=== PATIENT | male | born 1950 | race Caucasian/White ===

== ENCOUNTER → 2016-11-30 | Outpatient (CLI) | payer BC, MEDICARE ==
--- NOTE | 2016-11-30 10:04 | RADIOLOGY REPORT (SQ) ---
EXAM DESCRIPTION: CT LUNG CANCER SCREENING COMPLETED DATE/TIME: 11/30/2016 9:09 am REASON FOR STUDY: NICOTINE DEPENDENCE (F17.200) F17.200 NICOTINE DEPENDENCE, UNSPECIFIED, UNCOMPLIC ATED Has the patient had a Chest CT scan within the past year? No Was the patient offered tobacco cessation counseling? No Was the patient engaged in shared decision making for this test? No Does the patient have signs or symptoms of Lung Cancer? No Is the patient a smoker? No How many packs per year? 365 How many years since quitting smoking? Less than 1 Patients age: 66 COMPARISON: None. TECHNIQUE: Low Dose CT scan performed of the chest without intravenous contrast for purposes of scre ening for lung cancer. Images reviewed with lung, soft tissue and bone windows. Reconstructed coron al and sagittal MPR images reviewed. All images stored on PACS. All CT scanners at this facility use dose modulation, iterative reconstruction, and/or weight based d osing when appropriate to reduce radiation dose to as low as reasonably achievable (ALARA). [facility]: Dose Right [facility]: CareDose [facility]: Dose Right [facility]: Teradose 4D [facility]: [employer] RADIATION DOSE: 2.09 mGy. . LIMITATIONS: No technical limitations. FINDINGS: LUNGS AND PLEURA: No masses or nodules. No pleural effusions or calcifications. No pne umothorax. No significant scarring or interstitial changes. Bandlike atelectasis in the lingula. HILAR AND MEDIASTINAL STRUCTURES: No identified masses. No abnormal nodes. HEART AND VASCULAR STRUCTURES: No aortic aneurysm. No pericardial effusion. No cardiac devices. CORONARY ARTERY CALCIFICATIONS: Marked calcifications. UPPER ABDOMEN: No significant findings. THYROID AND OTHER SOFT TISSUES: No masses. No adenopathy. BONY STRUCTURES: No significant finding. OTHER: No other significant findings. IMPRESSION: NO SIGNIFICANT FINDING ON NON-CONTRASTED CHEST CT. Heavy coronary artery calcifications LUNGRADS: LUNGRADS: 1 NEGATIVE. NO NODULES, OR DEFINITELY BENIGN NODULES MODIFIER: NONE RECOMMENDATION: Continue annual screening with LDCT in 12 months. COMMENT: CRITERIA: No lung nodules. Nodules with specific calcifications: Complete, central, popcorn, concentric rings and fat containin g nodules. TECHNICAL DOCUMENTATION: JOB ID: [id number] Quality ID # [id number]: Final reports with documentation of one or more dose reduction techniques (e.g., Au tomated exposure control, adjustment of the mA and/or kV according to patient size, use of iterative reconstruction technique) 2010 [employer]
== END ==
LOC: RAD 08:54
PROVIDERS: ATTEND Family Medicine
DX: Z12.2 Encounter for screening for malignant neoplasm of respiratory organs (principal); F17.200 Nicotine dependence, unspecified, uncomplicated; J44.9 Chronic obstructive pulmonary disease, unspecified; R06.02 Shortness of breath
CPT/HCPCS: G0297

== ENCOUNTER 2018-02-15 07:52 | Day surgery (SDC) | payer MEDICARE, OTHER ==
[~2018-02-15 07:52] MED LIST: DIPHENHYDRAMINE HCL 50 MG/ML VIAL ONE; EPINEPHRINE INJ 1 MG/10 ML DISP.SYRIN ONE; FENTANYL CITRATE INJ/PF 100 MCG/2 ML AMPUL ONE; FLUMAZENIL INJ 0.5 MG/5 ML VIAL ONE; GLUCAGON,HUMAN RECOMB 1 MG INJ ONE; NALOXONE HCL INJ/PF 0.4 MG/1 ML SDV ONE; ONDANSETRON HCL INJ/PF 4 MG/2 ML SDV ONE
[2018-02-15] MEDS: MIDAZOLAM 2 MG/2 ML INJ ONE ×2 (08:37→08:41)
--- NOTE | 2018-02-15 09:13 | Operative Report ---
Operative Report DATE OF SURGERY: 02/15/18 Operative Report: The risks, benefits and alternatives of the procedure including risks of bleeding, perforation requiring surgery are explained to the patient in detail and informed consent is obtained. The patient is placed in the left, lateral decubital position. Timeout was called. Conscious sedation medications are provided. A rectal examination is done which did not reveal any masses, tears or fissures. An Olympus videoscope was inserted into the patient's rectum. The scope was then carefully advanced all the way to the cecum. Prep is not good. Patient had drank coffee this morning despite having instructions not to. Irrigation had to be used. Scope was then sequentially pulled back via the various segments of the colon including the ascending colon, hepatic flexure , transverse colon, splenic flexure, descending colon and finally into the rectosigmoid portions of the colon. Retroflexion maneuver is performed. PREOPERATIVE DIAGNOSIS: Colorectal cancer screening POSTOPERATIVE DIAGNOSIS: Rectosigmoid polyp that is ablated. 3 descending colon polyps to remove via snare polypectomy. Single pedunculated large polyp noted in the area of the sigmoid that was removed via snare polypectomy and retrieved. Diverticulosis. Internal hemorrhoids OPERATION: Colonoscopy with snare polypectomy. Colonoscopy with ablation SURGEON: ADRIANNA LIRA ANESTHESIA: LMAC - 3 mg of Versed, 50 mcg of fentanyl. Conscious sedation monitoring time 30 minutes. TISSUE REMOVED OR ALTERED: As noted above. COMPLICATIONS: None. ESTIMATED BLOOD LOSS: None. INTRAOPERATIVE FINDINGS: As noted above. PROCEDURE: Patient tolerated procedure well. No immediate postprocedure complications are noted. Discharge in good condition. Discharge date 02/15/2018. Discharge diet: Regular. Discharge activity: Regular. 2-3 week follow-up to discuss findings. 1 year surveillance colonoscopy. Patient is instructed call the office or proceed to the emergency room should there be any further problems or questions.
[2018-02-15 10:10] VITALS: BP 98/70
== END 2018-02-15 10:15 | disposition home or self-care (01) ==
LOC: END 07:52
PROVIDERS: ATTEND Internal Medicine Gastroenterology
DX: D12.4 Benign neoplasm of descending colon (principal); D12.7 Benign neoplasm of rectosigmoid junction; K57.30 Diverticulosis of large intestine without perforation or abscess without bleeding; K64.8 Other hemorrhoids; E78.5 Hyperlipidemia, unspecified; I10 Essential (primary) hypertension; E09.42 Drug or chemical induced diabetes mellitus with neurological complications with diabetic polyneuropathy; F17.210 Nicotine dependence, cigarettes, uncomplicated; I73.9 Peripheral vascular disease, unspecified; Z79.51 Long term (current) use of inhaled steroids; Z79.899 Other long term (current) drug therapy; Z79.84 Long term (current) use of oral hypoglycemic drugs
CPT/HCPCS: 45385; 45388; 82962; 88305 ×2; J2250; J3010; J0171; J1200; J1610; J2310; J2405; J3490

== ENCOUNTER 2019-03-20 02:26 | Inpatient (IN) | payer MEDICARE ==
[2019-03-20] MEDS ORDERED: IPRATROPIUM/ALBUTEROL 0.5-2.5 MG/3 ML AMPUL NEB ONE ×3 (02:32→06:41)
[2019-03-20] MEDS ORDERED: METHYLPREDNISOLONE INJ 125 MG/2 ML SDV ONE (02:33)
[2019-03-20] MEDS ORDERED: METHYLPREDNISOLONE INJ 125 MG/2 ML SDV IV ONE ×2 (02:37→06:41)
[2019-03-20] MEDS ORDERED: MAGNESIUM SULFATE/D5W 0 GM/0 ML RTUPB IV ONE (02:43)
[2019-03-20] MEDS: ALBUTEROL SULFATE 0.083% NEB 2.5 MG/3 ML AMPUL NEB SCH ×2 (03:02→03:33)
[2019-03-20 03:16] LABS: ABSOLUTE BASOPHILS # (AUTO) 0.1 10^3/uL (0.0-0.2); ABSOLUTE EOSINOPHILS # (AUTO) 0.2 10^3/uL (0.0-0.6); ABSOLUTE LYMPHOCYTES (AUTO) 1.6 10^3/uL (0.5-4.7); ABSOLUTE MONOCYTES (AUTO) 0.6 10^3/uL (0.1-1.4); ABSOLUTE NEUT (AUTO) 6.7 10^3/uL (1.7-8.2); BASOPHILS % (AUTO) 0.7 % (0-2); EOSINOPHILS % (AUTO) 2.5 % (0-6); HEMATOCRIT 36.1 % (37.9-51.0); HEMOGLOBIN 12.1 g/dL (13.5-17.0); LYMPHOCYTES % (AUTO) 17.3 % (13-45); MEAN CORPUSCULAR HEMOGLOBIN 30.5 pg (27.0-33.4); MEAN CORPUSCULAR HGB CONC 33.5 g/dL (32.0-36.0); MEAN CORPUSCULAR VOLUME 91 fl (80-97); MONOCYTES % (AUTO) 6.5 % (3-13); PLATELET COUNT 205 10^3/uL (150-450); RED BLOOD COUNT 3.97 10^6/uL (4.35-5.55); RED CELL DISTRIBUTION WIDTH 14.3 % (11.5-14.0); TOTAL CELLS COUNTED % (AUTO) 100 %; WHITE BLOOD COUNT 9.1 10^3/uL (4.0-10.5)
[2019-03-20] MEDS ORDERED: NORMAL SALINE 1000 ML 1,000 ML IV ONE ×2 (03:21→22:15)
[2019-03-20 03:23] LABS: ALBUMIN 3.6 g/dL (3.5-5.0); ALKALINE PHOSPHATASE 66 U/L (38-126); ANION GAP 13 (5-19); ASPARTATE AMINO TRANSFERASE 37 U/L (17-59); BILIRUBIN,DIRECT 0.3 mg/dL (0.0-0.4); BILIRUBIN,TOTAL 0.5 mg/dL (0.2-1.3); BLOOD UREA NITROGEN 46 mg/dL (7-20); CALCIUM 8.8 mg/dL (8.4-10.2); CARBON DIOXIDE 24 mmol/L (22-30); CHLORIDE 104 mmol/L (98-107); CREATINE KINASE 109 U/L (55-170); GLUCOSE 191 mg/dL (75-110); POTASSIUM 4.6 mmol/L (3.6-5.0); TOTAL PROTEIN 6.2 g/dL (6.3-8.2)
--- NOTE | 2019-03-20 03:35 | ER Document Report ---
ED Respiratory Problem - General Chief Complaint: Shortness Of Breath Stated Complaint: TROUBLE BREATHING Time Seen by Provider: 03/20/19 02:50 Primary Care Provider: REYNA PENN MD [Primary Care Provider] - Follow up as needed Mode of Arrival: Ambulatory Information source: Patient, Relative Notes: HISTORY OF PRESENT ILLNESS: Patient is a 68-year-old male with a past medical history of COPD, diabetes, and hypertension who presents with shortness of breath that began 2 weeks ago but has been progressively worsening. Patient and family report that the patient began having trouble breathing over 2 weeks ago, had a CT scan performed through their primary physician that showed "calcium deposits in his heart," the patient was subsequently referred to cardiology. Patient smoked at least one pack a day for the past 40 years but has not smoked in 8 weeks. He denies chest pain. Of note, family reports the patient was told by his primary physician that he may have "kidney problems." Location: Chest Onset: 2 weeks ago Alleviation: Rest Provocation: Ambulation Quality: Shortness of breath Radiation: None Severity: Moderate to severe Timing: Persistent History of CAD: None Associated symptoms: Denies chest pain, no fevers or chills, no congestion REVIEW OF SYSTEMS: CONSTITUTIONAL : Denies fever or chills, no sweats. Denies recent illness. EENT: Denies eye, ear, throat, or mouth pain or symptoms. Denies nasal or sinus congestion. CARDIOVASCULAR: Denies chest pain. Positive for swelling of the legs. RESPIRATORY: Denies cough, cold, or chest congestion. Positive for shortness of breath or dyspnea on exertion. Denies wheezing. GASTROINTESTINAL: Denies abdominal pain. Denies nausea, vomiting, or diarrhea. Denies constipation. GENITOURINARY: Denies difficulty urinating, painful urination, burning, frequency, or blood in urine. MUSCULOSKELETAL: Denies neck or back pain or joint pain or swelling. SKIN: Denies rash or skin lesions. HEMATOLOGIC : Denies easy bruising or bleeding. LYMPHATIC: Denies swollen, enlarged glands. NEUROLOGICAL: Denies altered mental status or loss of consciousness. Denies headache. Denies weakness or paralysis or loss of use of either side. Denies problems with gait or speech. Denies sensory or motor loss. PSYCHIATRIC: Denies anxiety or stress or depression. All other systems reviewed and negative. PHYSICAL EXAMINATION: GENERAL: Tired and weak-appearing, well-nourished and in mild to moderate acute distress. HEAD: Atraumatic, normocephalic. No scalp deformity, depression, or crepitance. EYES: Pupils are 3 mm and equal/round/reactive to light, extraocular movements intact, sclera anicteric, conjunctiva are normal. ENT: Nares patent bilaterally, oropharynx. Moist mucous membranes. No tonsil hypertrophy. NECK: Normal range of motion, supple without lymphadenopathy. LUNGS: Breath sounds severely diminished bilaterally with faint expiratory crackles. No wheezes or rhonchi. HEART: Regular rate and rhythm without murmurs, rubs, or gallops. 2+ peripheral pulses. Normal capillary refill. ABDOMEN: Soft, nontender, nondistended. Normoactive bowel sounds. No guarding, no rebound. No masses appreciated. BACK: Normal contour, no midline tenderness. Rectal exam deferred. GENITAL/PELVIC: Deferred. EXTREMITIES: Normal range of motion, 2-3+ pitting bilaterally. No cyanosis. NEUROLOGICAL: No focal neurological deficits. Moves all extremities spontaneously and on command. PSYCH: Normal mood, normal affect. No suicidal thoughts/ideations. No homicidal thoughts/ideations. No hallucinations. SKIN: Warm, dry, normal turgor, no rashes or lesions noted. ASSESSMENT AND PLAN: This patient is a 68-year-old male who presents with shortness of breath that could be cardiac in etiology versus COPD exacerbation versus pulmonary edema. 1. Will obtain labs, cardiac enzymes, lactic acid, blood cultures, and placed on BiPAP. 2. Will likely admit to the hospital. TRAVEL OUTSIDE OF THE [place] IN LAST 30 DAYS: No - HPI Patient complains to provider of: Short of breath Onset: Other - 2 weeks ago Duration: Continuous, Worse/persistent Quality of pain: No pain Severity: Moderate Pain Level: Denies Context: Hx COPD, Smoker Short of Breath: Moderate Cough: Nonproductive Sputum amount: None Associated symptoms: Cough, Short of breath Similar symptoms previously: No Recently seen / treated by doctor: No - Related Data Allergies/Adverse Reactions: No Known Allergies Allergy (Verified 02/15/18 08:16) Past Medical History - General Information source: Patient, Relative - Social History Smoking Status: Former Smoker Chew tobacco use (# tins/day): No Frequency of alcohol use: None Drug Abuse: None Lives with: Family Family History: Reviewed & Not Pertinent Patient has suicidal ideation: No Patient has homicidal ideation: No - Past Medical History Cardiac Medical History: Reports: Hx Hypertension Denies: Hx Coronary Artery Disease, Hx Heart Attack Pulmonary Medical History: Reports: Hx COPD Denies: Hx Asthma, Hx Bronchitis, Hx Pneumonia EENT Medical History: Reports: None Neurological Medical History: Reports: None. Denies: Hx Cerebrovascular Accident, Hx Seizures Endocrine Medical History: Reports: Hx Diabetes Mellitus Type 2 Renal/ Medical History: Reports: None Malignancy Medical History: Reports None GI Medical History: Reports: None Musculoskeletal Medical History: Reports None, Denies Hx Arthritis Skin Medical History: Reports None Psychiatric Medical History: Reports: None Traumatic Medical History: Reports: None Infectious Medical History: Reports: None Surgical Hx: Negative Past Surgical History: Reports: None - Immunizations Hx Diphtheria, Pertussis, Tetanus Vaccination: Yes Review of Systems - Review of Systems Constitutional: No symptoms reported EENT: No symptoms reported Cardiovascular: No symptoms reported Respiratory: See HPI, Short of breath Gastrointestinal: No symptoms reported Genitourinary: No symptoms reported Male Genitourinary: No symptoms reported Musculoskeletal: No symptoms reported Skin: No symptoms reported Hematologic/Lymphatic: No symptoms reported Neurological/Psychological: No symptoms reported -: Yes All other systems reviewed and negative Physical Exam - Vital signs Vitals: Temp Pulse Resp BP Pulse Ox 98.4 F 104 H 24 H 96/70 L 74 L 03/20/19 02:30 03/20/19 02:30 03/20/19 02:30 03/20/19 02:30 03/20/19 02:30 Interpretation: Normal Course - Re-evaluation Re-evalutation: 03/20/19 06:00 Cardiac enzymes are negative, BNP is elevated, creatinine of 2.2 up from baseline of 0.8 from 3 years ago. Patient was fluid responsive with initial blood pressure in the 70s systolic now in the 100s after 1 L of fluids, given empiric ceftriaxone and azithromycin for possible developing pneumonia. Ventilation/perfusion scan is still pending. Plan will be to admit the patient. - Vital Signs Vital signs: Temp Pulse Resp BP Pulse Ox 98.4 F 104 H 17 105/74 91 L 03/20/19 02:30 03/20/19 02:30 03/20/19 04:34 03/20/19 04:25 03/20/19 04:34 - Laboratory Result Diagrams: 03/20/19 02:40 03/20/19 02:40 Laboratory results interpreted by me: 03/20/19 03/20/19 03/20/19 02:40 02:40 02:40 RBC 3.97 L Hgb 12.1 L Hct 36.1 L RDW 14.3 H ABG pH ABG Total CO2 BUN 46 H Creatinine 2.16 H Est GFR ( Amer) 37 L Est GFR (MDRD) Non-Af 31 L Glucose 191 H Lactic Acid NT-Pro-B Natriuret Pep 4540 H Total Protein 6.2 L 03/20/19 03/20/19 03:14 04:01 RBC Hgb Hct RDW ABG pH 7.29 L ABG Total CO2 22.2 L BUN Creatinine Est GFR ( Amer) Est GFR (MDRD) Non-Af Glucose Lactic Acid 2.8 H NT-Pro-B Natriuret Pep Total Protein - Diagnostic Test Radiology reviewed: Image reviewed, Reports reviewed - EKG Interpretation by Me EKG shows normal: Sinus rhythm Rate: Normal Rhythm: NSR [place]/QRS: No: Right axis deviation, Left axis deviation, RBBB, LBBB, IVCD, LAHB/LAFB, LPHB/LPFB, Bifasicular block Voltage: No: Increased voltage, Consistant with LVH, Decreased voltage, Throughout, Limb leads P Waves: No: GIOVANI, LAE, Absent, AV Dissociation, Other Heart block present: No: 1st Degree, Mobitz 1, Mobitz 2, CHB (3rd degree block) When compared to previous EKG there are: Previous EKG unavailable - Transfer of Care Care transferred to following provider: Dr. Ramirez Discharge - Discharge Clinical Impression: Shortness of breath Condition: Stable Disposition: ADMITTED INPATIENT Admitting Provider: Roman (Hospitalist) Unit Admitted: [facility] Referrals: REYNA PENN MD [Primary Care Provider] - Follow up as needed
[2019-03-20 03:43] LABS: CREATINE KINASE MB 2.86 ng/mL (<4.55)
[2019-03-20] MEDS ORDERED: CEFTRIAXONE 1 GM/D5W RTU 1 GM/50 ML RTUPB IV ONE (03:49)
[2019-03-20] MEDS ORDERED: AZITHROMYCIN INJ 500 MG VIAL IV ONE (03:49)
[2019-03-20 03:51] LABS: TROPONIN I 0.04 ng/mL
--- NOTE | 2019-03-20 04:03 | RADIOLOGY REPORT (SQ) ---
Chest single view on 03/20/2019 at 2:55 AM CLINICAL INDICATION: Respiratory distress COMPARISON: None FINDINGS: Mild increased reticular interstitial changes may be chronic in nature but cannot exclude mild edema or atypical pneumonia. Vascular calcification is noted in the aorta. The lungs are otherwise clear. Cardiac, hilar and mediastinal contours are within normal limits. No bony abnormality is noted. IMPRESSION: Mild increased reticular interstitial changes may all be chronic in nature but cannot exclude minimal edema or atypical pneumonia. Correlation with an old exam or short-term follow-up will be useful.
[2019-03-20 04:17] LABS: ARTERIAL BLOOD BASE EXCESS -5.5 mmol/L; ARTERIAL BLOOD FIO2 30%; ARTERIAL BLOOD H2CO3 1.34 mmol/L (1.05-1.35); ARTERIAL BLOOD HCO3 20.9 mmol/L (20-24); ARTERIAL BLOOD O2 SATURATION 95.7 % (94-98); ARTERIAL BLOOD PCO2 44.4 mmHg (35-45); ARTERIAL BLOOD PH 7.29 (7.35-7.45); ARTERIAL BLOOD PO2 87.6 mmHg (80-100); ARTERIAL BLOOD TOTAL CO2 22.2 mmol/L (23-27)
[2019-03-20] MEDS ORDERED: FUROSEMIDE INJ/PF 40 MG/4 ML SDV IV ONE (05:21)
--- NOTE | 2019-03-20 06:50 | RADIOLOGY REPORT (SQ) ---
EXAM DESCRIPTION: NM LUNG VENTILATION PERFUSION COMPLETED DATE/TME: 03/20/2019 04:07 CLINICAL HISTORY: 68 years Male, Shortness of breath COMPARISON: None. RADIONUCLIDE AND DOSE: 5.1-mCi of Tc99m MAA (perfusion), IV. 31.6-mCi of Tc99m DTPA (ventilation), aerosal. LIMITATIONS: None. Findings No significant perfusion or ventilation defect. No evidence of pulmonary embolus. Impression No acute findings.
[2019-03-20 07:18] LABS: INTERNATIONAL RATION (INR) 1.03; PROTHROMBIN TIME 13.5 SEC (11.4-15.4)
[2019-03-20] MEDS ORDERED: LORAZEPAM INJ 2 MG/1 ML VIAL IV ONE ×2 (07:19→23:00)
[2019-03-20 07:50] LABS: APPEARANCE,URINE SLIGHTLY-CLOUDY; BILIRUBIN,URINE NEGATIVE (NEGATIVE); COLOR,URINE YELLOW; GLUCOSE, URINE NEGATIVE (NEGATIVE); KETONES,URINE NEGATIVE (NEGATIVE); LEUKOCYTE ESTERASE,URINE NEGATIVE (NEGATIVE); NITRITE,URINE NEGATIVE (NEGATIVE); PROTEIN,URINE >=500 mg/dL (NEGATIVE); URINE SPECIFIC GRAVITY 1.012; UROBILINOGEN,URINE NEGATIVE mg/dL (<2.0)
[2019-03-20] MEDS ORDERED: DEXTROSE 50%-WATER 25 GM/50 ML DISP.SYRIN IV PRN ×2 (08:09)
[2019-03-20] MEDS ORDERED: GLUCAGON,HUMAN RECOMB 1 MG INJ IM PRN (08:09)
[2019-03-20] MEDS ORDERED: NORMAL SALINE 1000 ML 1,000 ML IV PRN (08:09)
[2019-03-20] MEDS ORDERED: DEXTROSE 40% GEL 15 GM TUBE PO PRN ×2 (08:09)
--- NOTE | 2019-03-20 08:36 | PDOC H&P ---
History of Present Illness Admission Date/PCP: REYNA PENN MD History of Present Illness: JOSE GARCIA is a 68 year old male with a 40+-pack-year history of smoking who said he quit 8 weeks ago who presents with 1 week of progressive dyspnea. It should be noted that neither this patient nor his are very good historians. He says that over the past week he has noticed that he has dyspnea at rest and during exertion. He has not had a fever. He does not had a productive cough. He has not noticed any leg swelling. He has not noticed any weight gain but he has not been checking his weight. He does not have a history of CHF. His medical problems consist of [id number] diabetes mellitus, hypertension, hyperlipidemia, and his recent history of smoking. He was hypoxic on presentation and required supplemental O2, currently on BiPAP. He is stable on BiPAP. His BNP was elevated and so he was given a dose of Lasix, and now he is hypotensive and tachycardic. His chest x-ray looks like he has some chronic scarring. His creatinine is substantially elevated above baseline and his BUN to creatinine ratio greater than 20-1. He is being admitted for treatment of his respiratory failure and his dehydration and acute kidney injury. Past Medical History Cardiac Medical History: Reports: Hypertension Denies: Coronary Artery Disease, Myocardial Infarction Pulmonary Medical History: Reports: Chronic Obstructive Pulmonary Disease (COPD) Denies: Asthma, Bronchitis, Pneumonia EENT Medical History: Reports: None Neurological Medical History: Reports: None Denies: Seizures Endocrine Medical History: Reports: Diabetes Mellitus Type 2 Renal/ Medical History: Reports: None Malignancy Medical History: Reports: None GI Medical History: Reports: None Musculoskeltal Medical History: Reports: None Denies: Arthritis Skin Medical History: Reports: None Psychiatric Medical History: Reports: None Traumatic Medical History: Reports: None Hematology: Denies: Anemia Infectious Medical History: Reports: None Past Surgical History Past Surgical History: Reports: None Social History Lives with: Family Smoking Status: Former Smoker Family History Family History: Reviewed & Not Pertinent Parental Family History Reviewed: Yes - Hypertension Children Family History Reviewed: Unknown Sibling(s) Family History Reviewed.: Unknown Medication/Allergy Allergies/Adverse Reactions: No Known Allergies Allergy (Verified 02/15/18 08:16) Review of Systems All systems: reviewed and no additional remarkable complaints except as stated - All systems were reviewed and were negative except as noted in the HPI Physical Exam Vital Signs: Temp Pulse Resp BP Pulse Ox 98.4 F 104 H 23 H 80/70 L 95 03/20/19 02:30 03/20/19 02:30 03/20/19 07:45 03/20/19 07:45 03/20/19 07:45 Intake & Output 03/19/19 03/20/19 03/21/19 06:59 06:59 06:59 Intake Total 1050 Balance 1050 Weight 99.79 kg General appearance: PRESENT: cooperative, disheveled, mild distress Head exam: PRESENT: atraumatic, normocephalic Eye exam: PRESENT: EOMI, PERRLA. ABSENT: conjunctival injection, nystagmus, scleral icterus Ear exam: PRESENT: normal external ear exam Mouth exam: PRESENT: dry mucosa, neck supple Throat exam: ABSENT: post pharyngeal erythema Neck exam: PRESENT: full ROM. ABSENT: carotid bruit, JVD, lymphadenopathy, meningismus, tenderness, thyromegaly Respiratory exam: PRESENT: prolonged expiratory phas, rhonchi - Left base, symmetrical. ABSENT: accessory muscle use, chest wall tenderness, crackles, ta chypnea, unlabored, wheezes Cardiovascular exam: PRESENT: +S1, +S2, tachycardia Pulses: PRESENT: normal carotid pulses Vascular exam: PRESENT: normal capillary refill GI/Abdominal exam: PRESENT: normal bowel sounds, soft. ABSENT: distended, guarding, rebound, tenderness Extremities exam: ABSENT: clubbing, pedal edema Musculoskeletal exam: PRESENT: normal inspection. ABSENT: deformity Neurological exam: PRESENT: alert, awake, oriented to person, oriented to place, oriented to time, oriented to situation, CN II-XII grossly intact. ABSENT: motor sensory deficit Psychiatric exam: PRESENT: flat affect Skin exam: PRESENT: dry, warm Results Laboratory Results: 03/20/19 02:40 03/20/19 02:40 03/20/19 03/20/19 03/20/19 02:40 02:40 03:14 WBC 9.1 RBC 3.97 L Hgb 12.1 L Hct 36.1 L MCV 91 MCH 30.5 MCHC 33.5 RDW 14.3 H Plt Count 205 Seg Neutrophils % 73.0 Carbonic Acid HCO3/H2CO3 Ratio ABG pH ABG pCO2 ABG pO2 ABG HCO3 ABG O2 Saturation ABG Base Excess FiO2 Sodium 140.6 Potassium 4.6 Chloride 104 Carbon Dioxide 24 Anion Gap 13 BUN 46 H Creatinine 2.16 H Est GFR ( Amer) 37 L Glucose 191 H Lactic Acid 2.8 H Calcium 8.8 Total Bilirubin 0.5 AST 37 Alkaline Phosphatase 66 Total Protein 6.2 L Albumin 3.6 Urine Color Urine Appearance Urine pH Ur Specific [place] Urine Protein Urine Glucose (UA) Urine Ketones Urine Blood Urine Nitrite Ur Leukocyte Esterase Urine WBC (Auto) Urine RBC (Auto) 03/20/19 03/20/19 04:01 07:35 WBC RBC Hgb Hct MCV MCH MCHC RDW Plt Count Seg Neutrophils % Carbonic Acid 1.34 HCO3/H2CO3 Ratio 15:1 ABG pH 7.29 L ABG pCO2 44.4 ABG pO2 87.6 ABG HCO3 20.9 ABG O2 Saturation 95.7 ABG Base Excess -5.5 FiO2 30% Sodium Potassium Chloride Carbon Dioxide Anion Gap BUN Creatinine Est GFR ( Amer) Glucose Lactic Acid Calcium Total Bilirubin AST Alkaline Phosphatase Total Protein Albumin Urine Color YELLOW Urine Appearance SLIGHTLY-CLOUDY Urine pH 5.0 Ur Specific [place] 1.012 Urine Protein >=500 H Urine Glucose (UA) NEGATIVE Urine Ketones NEGATIVE Urine Blood MODERATE H Urine Nitrite NEGATIVE Ur Leukocyte Esterase NEGATIVE Urine WBC (Auto) 0 Urine RBC (Auto) 14 03/20/19 03/20/19 03/20/19 02:40 02:40 07:06 Creatine Kinase 109 CK-MB (CK-2) 2.86 Cancelled Troponin I 0.040 Cancelled NT-Pro-B Natriuret Pep 4540 H Impressions: Chest X-Ray 03/20/19 02:37 IMPRESSION: Mild increased reticular interstitial changes may all be chronic in nature but cannot exclude minimal edema or atypical pneumonia. Correlation with an old exam or short-term follow-up will be useful. Assessment and Plan - Diagnosis (1) Acute hypoxemic respiratory failure Is this a current diagnosis for this admission?: Yes Plan: We will continue supplemental O2 including BiPAP to maintain SPO2 greater than 90% (2) COPD with exacerbation Is this a current diagnosis for this admission?: Yes Plan: His said he does not carry a diagnosis of COPD and yet he is on Anoro at home with heavy smoking history and a chest x-ray that appears to have chronic scarring in the bases bilaterally. This gentleman almost certainly has undiagnosed COPD. Either that, or he is been told he has COPD and for some reason does not recall being told that, which after my examination and interview I believe to be a possibility. I am going to put him on some steroids and antibiotics and nebulizer treatments. (3) Acute kidney injury Is this a current diagnosis for this admission?: Yes Plan: He is dehydrated and his acute kidney injury is most likely due to prerenal az otemia. We will give him some IV fluids and monitor his urine output and electrolytes. (4) Dehydration Is this a current diagnosis for this admission?: Yes Plan: I believe this patient was dehydrated, and not fluid overloaded as was a presumption to begin with in the ER based on his BNP elevation. He does not have a history of congestive heart failure. He has a heavy smoking history and obvious lung scarring on chest x-ray, and he probably has some pulmonary hypertension as a result of his stiff lungs, which causes his BMP to be elevated, along with his substantial acute kidney injury. He was given some Lasix in the ER which may very likely worsen his renal failure, but we have given him a bolus of IV fluids. After the Lasix he got tachycardic and hypotensive. Were given him some fluids now we will monitor his urine output and his electrolytes. - Time Time Spent with patient: 35 or more minutes - Inpatient Certification Based on my medical assessment, after consideration of the patient's comorbidities, presenting symptoms, or acuity I expect that the services needed warrant INPATIENT care.: Yes I certify that my determination is in accordance with my understanding of Medicare's requirements for reasonable and necessary INPATIENT services [42 CFR 412.3e].: Yes Medical Necessity: Need Close Monitoring Due to Risk of Patient Decompensation, Need For IV Fluids, Need for Nebulizer Therapy and Monitoring of Response, Risk of Complication if Not Cared For in Hospital
[2019-03-20 08:37] LABS: CREATINE KINASE MB 10.9 ng/mL (<4.55)
[2019-03-20 08:45] LABS: TROPONIN I 0.648 ng/mL
[2019-03-20] MEDS ORDERED: DOXYCYCLINE HYCLATE 100 MG TABLET PO SCH (10:00)
[2019-03-20] MEDS: INSULIN LISPRO 100 UNIT/ML 3 ML VIAL SUBCUT SCH ×3 (11:31→22:39)
[2019-03-20] MEDS: HEPARIN SOD (PORCINE) 5,000 UNIT/ML 1 ML VIAL SUBCUT SCH ×2 (13:48→22:46)
[2019-03-20] MEDS: METHYLPREDNISOLONE INJ 40 MG/1 ML SDV IV SCH ×2 (13:48→22:39)
[2019-03-20] MEDS: IPRATROPIUM/ALBUTEROL 0.5-2.5 MG/3 ML AMPUL NEB PRN (16:10)
[2019-03-20] MEDS ORDERED: METOPROLOL TARTRATE PF/INJ 5 MG/5 ML SDV IV ONE ×3 (17:45→23:15)
[2019-03-20 18:28] LABS: ALBUMIN 3.9 g/dL (3.5-5.0); ALKALINE PHOSPHATASE 64 U/L (38-126); ANION GAP 13 (5-19); ASPARTATE AMINO TRANSFERASE 54 U/L (17-59); BILIRUBIN,DIRECT 0.3 mg/dL (0.0-0.4); BILIRUBIN,TOTAL 0.4 mg/dL (0.2-1.3); BLOOD UREA NITROGEN 53 mg/dL (7-20); CALCIUM 8.3 mg/dL (8.4-10.2); CARBON DIOXIDE 23 mmol/L (22-30); CHLORIDE 103 mmol/L (98-107); GLUCOSE 283 mg/dL (75-110); POTASSIUM 4.6 mmol/L (3.6-5.0); TOTAL PROTEIN 6.5 g/dL (6.3-8.2)
--- NOTE | 2019-03-20 18:28 | RADIOLOGY REPORT (SQ) ---
EXAM DESCRIPTION: CHEST SINGLE VIEW COMPLETED DATE/TIME: 03/20/2019 6:15 pm REASON FOR STUDY: sob COMPARISON: 03/20/2019 0254 hours EXAM PARAMETERS: NUMBER OF VIEWS: One view. TECHNIQUE: Single frontal radiographic view of the chest acquired. RADIATION DOSE: NA LIMITATIONS: None. FINDINGS: LUNGS AND PLEURA: Minimal parenchymal opacities. Jewell B-lines. MEDIASTINUM AND HILAR STRUCTURES: No masses. Contour normal. HEART AND VASCULAR STRUCTURES: Heart enlarged. Perihilar haziness. BONES: No acute findings. HARDWARE: None in the chest. OTHER: No other significant finding. IMPRESSION: Worsening congestive failure with interstitial pulmonary edema. TECHNICAL DOCUMENTATION: JOB ID: [id number] [employer]- All Rights Reserved Reading location - IP/workstation name: [email or web address]
[2019-03-20] MEDS ORDERED: FUROSEMIDE INJ/PF 20 MG/2 ML SDV IV ONE (18:49)
[2019-03-20] MEDS ORDERED: HEPARIN SOD (PORCINE) 1,000 UNIT/ML 10 ML VIAL ONE (18:55)
[2019-03-20] MEDS ORDERED: HEPARIN SODIUM,PORCINE/D5W 25,000 UNIT/250 ML RTUINJ IV ONE (18:55)
[2019-03-20] MEDS ORDERED: FUROSEMIDE INJ/PF 20 MG/2 ML SDV ONE (18:55)
[2019-03-20] MEDS ORDERED: NITROGLYCERIN/D5W 50 MG/250 ML RTUINJ IV PRN (19:02)
[2019-03-20] MEDS: HEPARIN SODIUM,PORCINE/D5W 25,000 UNIT/250 ML RTUINJ IV PRN (19:07)
[2019-03-20 19:53] LABS: HEMOGLOBIN 11.2 g/dL (13.5-17.0); MEAN CORPUSCULAR HEMOGLOBIN 29.9 pg (27.0-33.4); MEAN CORPUSCULAR HGB CONC 32.9 g/dL (32.0-36.0); MEAN CORPUSCULAR VOLUME 91 fl (80-97); PLATELET COUNT 203 10^3/uL (150-450); RED BLOOD COUNT 3.74 10^6/uL (4.35-5.55); RED CELL DISTRIBUTION WIDTH 14.2 % (11.5-14.0); WHITE BLOOD COUNT 11.7 10^3/uL (4.0-10.5)
[2019-03-20 19:58] LABS: INTERNATIONAL RATION (INR) 1.19; PROTHROMBIN TIME 15.2 SEC (11.4-15.4)
[2019-03-20 20:19] LABS: ABSOLUTE LYMPHOCYTES# (MANUAL) 0.5 10^3/uL (0.5-4.7); ABSOLUTE MONOCYTES # (MANUAL) 0.4 10^3/uL (0.1-1.4); ANISOCYTOSIS SLIGHT; BAND NEUTROPHILS % (MANUAL) 6 % (3-5); BASOPHILS % (MANUAL) 0 % (0-2); EOSINOPHILS % (MANUAL) 0 % (0-6); LYMPHOCYTES % (MANUAL) 4 % (13-45); MONOCYTES % (MANUAL) 3 % (3-13); SEGMENTED NEUTROPHILS % (MAN) 87 % (42-78); TOTAL CELLS COUNTED 100
[2019-03-20 20:20] LABS: OVALOCYTES SLIGHT; PLATELET COMMENT ADEQUATE
[2019-03-20 20:21] LABS: PARTIAL THROMBOPLASTIN TIME 134.9 SEC (23.5-35.8)
[2019-03-20] MEDS ORDERED: MORPHINE SULFATE 10 MG/ML INJ ONE (20:53)
[2019-03-20] MEDS ORDERED: NITROGLYCERIN 2% OINTMENT 1 GM PACKET ONE (21:00)
[2019-03-20 21:01] LABS: ARTERIAL BLOOD FIO2 100%; ARTERIAL BLOOD H2CO3 2.35 mmol/L (1.05-1.35); ARTERIAL BLOOD HCO3 22.4 mmol/L (20-24); ARTERIAL BLOOD PO2 65.6 mmHg (80-100); ARTERIAL BLOOD TOTAL CO2 24.8 mmol/L (23-27)
[2019-03-20 21:03] LABS: ARTERIAL BLOOD PCO2 78.1 mmHg (35-45); ARTERIAL BLOOD PH 7.08 (7.35-7.45)
[2019-03-20] MEDS ORDERED: PROPOFOL 1,000 MG/100 ML INFUS..BTL IV ONE (21:14)
[2019-03-20] MEDS ORDERED: PROPOFOL INJ 200 MG/20 ML VIAL IV ONE (21:14)
[2019-03-20] MEDS ORDERED: PHARMACY COMMUNICATION ORDER MC NR (21:15)
[2019-03-20] MEDS ORDERED: ASPIRIN 600 MG SUPP, RECTAL PR ONE (21:16)
--- NOTE | 2019-03-20 21:16 | Progress Note ---
Provider Note Provider Note: Responded to rapid response team overhead call. Patient found by nurse on BiPAP, diaphoretic and agitated though denying pain. Patient on BiPAP oxygen saturations found to be 70% on 100% FiO2, systolic blood pressure of 212, heart rate sinus tachycardia 130 patient denies pain complains of shortness of breath. Lung exam reveals bilateral rails and diffuse crackles. Heart exam reveals S1, S2 and a S4 gallop. Patient receives Lopressor 5 IV, morphine 5 IV and Nitropaste. ABG, EKG and chest x-ray pending. Patient transferred to ICU for acute respiratory failure complicated by hypertensive emergency and non-ST elevation AK. Acute respiratory failure, anesthesia consulted for intubation, follow-up chest x-ray, ABG, follow-up parts sales advisor consult. Hypertensive emergency, Nitropaste, Cardene as needed. Non-ST elevation AK, continue IV heparin, optimize blood pressure, follow-up cardiology consult. 35 minutes of critical care and coordination.
[2019-03-20] MEDS ORDERED: ETOMIDATE INJ/PF 20 MG/10 ML SDV IV ONE (21:18)
[2019-03-20] MEDS ORDERED: MIDAZOLAM HCL 50 MG/100 ML RTUINJ IV PRN (21:21)
[2019-03-20] MEDS ORDERED: VANCOMYCIN HCL 0 MG in DEXTROSE 5%-WATER 250 ML IV NR (21:34)
[2019-03-20] MEDS ORDERED: LORAZEPAM INJ 2 MG/1 ML VIAL IV PRN (21:37)
--- NOTE | 2019-03-20 21:48 | Progress Note ---
Provider Note Provider Note: Pt arrived in ICU somewhat confused, pH 7.18, pCO2 78 intubated easily with #8 ETT etomidate for sedation.
[2019-03-20] MEDS ORDERED: LORAZEPAM INJ 2 MG/1 ML VIAL ONE (22:18)
[2019-03-20] MEDS: NITROGLYCERIN 2% OINTMENT 1 GM PACKET TP SCH (22:26)
--- NOTE | 2019-03-20 22:28 | RADIOLOGY REPORT (SQ) ---
EXAM DESCRIPTION: XR CHEST 1 VIEW COMPLETED DATE/TME: 03/20/2019 at 9:57 PM. CLINICAL HISTORY: 68 years, Male, intubation and NG COMPARISON: 03/20/2019 at 6:06 PM. Findings: The heart is moderately enlarged. Endotracheal tube and enteric tube are in appropriate placement. Moderate pulmonary edema. No significant pleural effusion. Right lower lobe airspace disease. IMPRESSION: Endotracheal tube is in place. Moderate pulmonary edema. Findings correlate from prior study.
[2019-03-20] MEDS: CEFTRIAXONE 1 GM/D5W RTU 1 GM/50 ML RTUPB IV SCH (22:49)
[2019-03-20] MEDS: NORMAL SALINE 1000 ML 1,000 ML IV PRN (22:55)
[2019-03-20] MEDS ORDERED: DOXYCYCLINE MONO 5 MG/ML SUSP 60 ML NG SCH (23:00)
[2019-03-20] MEDS: AZITHROMYCIN 500 MG in DEXTROSE 5%-WATER 250 ML IV SCH (23:16)
[2019-03-20] MEDS ORDERED: VANCOMYCIN HCL 1,500 MG in DEXTROSE 5%-WATER 250 ML IV ONE (23:30)
[2019-03-20] MEDS ORDERED: MORPHINE SULFATE 10 MG/ML INJ IV ONE (23:30)
[2019-03-20] MEDS: LORAZEPAM INJ 2 MG/1 ML VIAL IV PRN (23:45)
[2019-03-21] MEDS ORDERED: MIDAZOLAM HCL 50 MG/100 ML RTUINJ ONE (00:05)
[2019-03-21] MEDS: MIDAZOLAM HCL 50 MG/100 ML RTUINJ IV PRN ×3 (00:08→14:35)
[2019-03-21] MEDS ORDERED: DEXTROSE 5%-WATER 250 ML with PHENYLEPHRINE HCL 40 MG IV PRN ×2 (01:20)
[2019-03-21] MEDS ORDERED: PHENYLEPHRINE HCL INJ/PF 10 MG/1 ML SDV ONE (02:09)
[2019-03-21 02:44] LABS: APPEARANCE,URINE SLIGHTLY-CLOUDY; BILIRUBIN,URINE NEGATIVE (NEGATIVE); COLOR,URINE YELLOW; GLUCOSE, URINE 50 mg/dL (NEGATIVE); KETONES,URINE NEGATIVE (NEGATIVE); LEUKOCYTE ESTERASE,URINE NEGATIVE (NEGATIVE); NITRITE,URINE NEGATIVE (NEGATIVE); PROTEIN,URINE >=500 mg/dL (NEGATIVE); URINE SPECIFIC GRAVITY 1.013; UROBILINOGEN,URINE NEGATIVE mg/dL (<2.0)
[2019-03-21] MEDS: NITROGLYCERIN 2% OINTMENT 1 GM PACKET TP SCH ×2 (02:47→10:14)
[2019-03-21] MEDS: LORAZEPAM INJ 2 MG/1 ML VIAL IV PRN ×3 (03:35→10:24)
[2019-03-21 04:20] LABS: HEMATOCRIT 33.4 % (37.9-51.0); HEMOGLOBIN 10.9 g/dL (13.5-17.0); MEAN CORPUSCULAR HEMOGLOBIN 29.9 pg (27.0-33.4); MEAN CORPUSCULAR HGB CONC 32.7 g/dL (32.0-36.0); MEAN CORPUSCULAR VOLUME 91 fl (80-97); PLATELET COUNT 212 10^3/uL (150-450); RED BLOOD COUNT 3.67 10^6/uL (4.35-5.55); RED CELL DISTRIBUTION WIDTH 14.4 % (11.5-14.0); WHITE BLOOD COUNT 19.4 10^3/uL (4.0-10.5)
[2019-03-21 04:41] LABS: ANION GAP 9 (5-19); BLOOD UREA NITROGEN 61 mg/dL (7-20); CALCIUM 7.4 mg/dL (8.4-10.2); CARBON DIOXIDE 20 mmol/L (22-30); CHLORIDE 107 mmol/L (98-107); GLUCOSE 270 mg/dL (75-110)
[2019-03-21 04:51] LABS: POTASSIUM 5.8 mmol/L (3.6-5.0)
[2019-03-21] MEDS: METHYLPREDNISOLONE INJ 40 MG/1 ML SDV IV SCH ×2 (05:10→14:35)
[2019-03-21] MEDS: HEPARIN SOD (PORCINE) 5,000 UNIT/ML 1 ML VIAL SUBCUT SCH (05:11)
[2019-03-21] MEDS: NORMAL SALINE 1000 ML 1,000 ML IV PRN ×2 (06:14→14:52)
[2019-03-21 06:54] LABS: CREATINE KINASE MB 17.6 ng/mL (<4.55)
[2019-03-21 06:56] LABS: TROPONIN I 5.35 ng/mL
[2019-03-21] MEDS: FENTANYL CITRATE INJ/PF 100 MCG/2 ML AMPUL IV PRN ×2 (07:56→13:55)
--- NOTE | 2019-03-21 08:11 | PDOC PROGRESS REPORT ---
Subjective Progress Note for:: 03/21/19 Subjective:: The patient is intubated and intermitently agitated Reason For Visit: ACUTE HYPOXIC RESPIRATORY FAILURE,ACUTE KIDNEY. Now he is in acute respiratory failure, intubated. Physical Exam Vital Signs: Temp Pulse Resp BP Pulse Ox 98.1 F 81 22 H 105/76 96 03/21/19 06:00 03/21/19 02:00 03/21/19 06:11 03/21/19 06:11 03/21/19 06:11 Intake & Output 03/20/19 03/21/19 03/22/19 06:59 06:59 06:59 Intake Total 1050 2320 34 Output Total 185 Balance 1050 2135 34 Weight 99.79 kg 100.6 kg General appearance: PRESENT: well-nourished Additional Comments: Agitated at times requiring heavy sedation as long as BP tolerates. Eye exam: PRESENT: EOMI, PERRLA Ear exam: PRESENT: normal external ear exam Additional comments: He has an ETTand NG Teeth exam: PRESENT: edentulous Neck exam: PRESENT: full ROM Respiratory exam: PRESENT: accessory muscle use, decreased breath sounds Additional comments: Markedly decreased BS consistent with severity of COPD. Cardiovascular exam: PRESENT: RRR Pulses: PRESENT: normal radial pulses Vascular exam: PRESENT: normal capillary refill GI/Abdominal exam: PRESENT: soft Rectal exam: PRESENT: deferred Gentrourinary exam: PRESENT: indwelling catheter Extremities exam: PRESENT: full ROM Musculoskeletal exam: PRESENT: full ROM Additional comments: Sedated and intermittently agitated Skin exam: PRESENT: dry, normal color Results Laboratory Results: 03/21/19 03:57 03/21/19 03:57 03/20/19 03/20/19 03/20/19 07:54 17:45 17:52 WBC RBC Hgb Hct MCV MCH MCHC RDW Plt Count Seg Neutrophils % Carbonic Acid Cancelled HCO3/H2CO3 Ratio Cancelled ABG pH Cancelled ABG pCO2 Cancelled ABG pO2 Cancelled ABG HCO3 Cancelled ABG O2 Saturation Cancelled ABG Base Excess Cancelled FiO2 Cancelled Sodium 138.5 Potassium 4.6 Chloride 103 Carbon Dioxide 23 Anion Gap 13 BUN 53 H Creatinine 2.15 H Est GFR ( Amer) 37 L Glucose 283 H Lactic Acid 3.5 H Calcium 8.3 L Total Bilirubin 0.4 AST 54 Alkaline Phosphatase 64 Total Protein 6.5 Albumin 3.9 Urine Color Urine Appearance Urine pH Ur Specific [place] Urine Protein Urine Glucose (UA) Urine Ketones Urine Blood Urine Nitrite Ur Leukocyte Esterase Urine WBC (Auto) Urine RBC (Auto) 03/20/19 03/20/19 03/21/19 19:44 20:55 01:55 WBC 11.7 H RBC 3.74 L Hgb 11.2 L Hct 34.0 L MCV 91 MCH 29.9 MCHC 32.9 RDW 14.2 H Plt Count 203 Seg Neutrophils % Not Reportable Carbonic Acid 2.35 H HCO3/H2CO3 Ratio 9:1 ABG pH 7.08 L* ABG pCO2 78.1 H* ABG pO2 65.6 L ABG HCO3 22.4 ABG O2 Saturation 83.0 L ABG Base Excess -9.0 FiO2 100% Sodium Potassium Chloride Carbon Dioxide Anion Gap BUN Creatinine Est GFR ( Amer) Glucose Lactic Acid Calcium Total Bilirubin AST Alkaline Phosphatase Total Protein Albumin Urine Color YELLOW Urine Appearance SLIGHTLY-CLOUDY Urine pH 5.0 Ur Specific [place] 1.013 Urine Protein >=500 H Urine Glucose (UA) 50 H Urine Ketones NEGATIVE Urine Blood LARGE H Urine Nitrite NEGATIVE Ur Leukocyte Esterase NEGATIVE Urine WBC (Auto) 4 Urine RBC (Auto) 53 03/21/19 03/21/19 03:57 03:57 WBC 19.4 H RBC 3.67 L Hgb 10.9 L Hct 33.4 L MCV 91 MCH 29.9 MCHC 32.7 RDW 14.4 H Plt Count 212 Seg Neutrophils % Carbonic Acid HCO3/H2CO3 Ratio ABG pH ABG pCO2 ABG pO2 ABG HCO3 ABG O2 Saturation ABG Base Excess FiO2 Sodium 136.3 L Potassium 5.8 H D Chloride 107 Carbon Dioxide 20 L Anion Gap 9 BUN 61 H Creatinine 2.48 H Est GFR ( Amer) 32 L Glucose 270 H Lactic Acid Calcium 7.4 L Total Bilirubin AST Alkaline Phosphatase Total Protein Albumin Urine Color Urine Appearance Urine pH Ur Specific [place] Urine Protein Urine Glucose (UA) Urine Ketones Urine Blood Urine Nitrite Ur Leukocyte Esterase Urine WBC (Auto) Urine RBC (Auto) 03/20/19 03/20/19 03/20/19 02:40 02:40 07:06 Creatine Kinase 109 CK-MB (CK-2) 2.86 Cancelled Troponin I 0.040 Cancelled NT-Pro-B Natriuret Pep 4540 H 03/20/19 03/20/19 03/20/19 07:54 12:30 17:52 Creatine Kinase CK-MB (CK-2) 10.90 H Troponin I 0.648 1.770 3.420 NT-Pro-B Natriuret Pep 03/21/19 03/21/19 06:10 06:10 Creatine Kinase 353 H CK-MB (CK-2) 17.60 H Troponin I 5.350 NT-Pro-B Natriuret Pep Impressions: Chest X-Ray 03/20/19 02:37 IMPRESSION: Mild increased reticular interstitial changes may all be chronic in nature but cannot exclude minimal edema or atypical pneumonia. Correlation with an old exam or short-term follow-up will be useful. Assessment & Plan - Diagnosis (1) Personal history of renal artery stenosis Is this a current diagnosis for this admission?: Yes Plan: Given his hx the possibility of this exists given his dificult to control HTN. He will have a renal aterry ultrasound today. (2) Acute hypoxemic respiratory failure Is this a current diagnosis for this admission?: Yes Plan: Intubated and I do nit see him having a quick extubation given his severity of lung disease and CV comorbidities. (3) Acute kidney injury Is this a current diagnosis for this admission?: Yes Plan: Creatinine up to 2.5 from 2.1. He has had fluid changes and is on positve pressure. (4) COPD with exacerbation Is this a current diagnosis for this admission?: Yes Plan: Index admissin diagnosis that has worsened despite treatment. Allow lungs to recover and excesize on vent today. (5) Pulmonary artery hypertension Is this a current diagnosis for this admission?: Yes Plan: Adds to confusing picture of volume status. May need ANIYAH gaviria. - Time Time Spent with patient: 35 or more minutes Total Critical Time (Minutes): 35 Medications reviewed and adjusted accordingly: Yes - Inpatient Certification Medical Necessity: Failure to Improve With Outpatient Therapy, Significant Comorbidiites Make Outpatient Treatment Too Risky, Need Close Monitoring Due to Risk of Patient Decompensation, Need For Continuous Telemetry Monitoring
[2019-03-21 08:16] LABS: ARTERIAL BLOOD BASE EXCESS -7.6 mmol/L; ARTERIAL BLOOD H2CO3 1.52 mmol/L (1.05-1.35); ARTERIAL BLOOD HCO3 20.1 mmol/L (20-24); ARTERIAL BLOOD O2 SATURATION 93.5 % (94-98); ARTERIAL BLOOD PCO2 50.5 mmHg (35-45); ARTERIAL BLOOD PH 7.22 (7.35-7.45); ARTERIAL BLOOD PO2 80.7 mmHg (80-100); ARTERIAL BLOOD TOTAL CO2 21.7 mmol/L (23-27)
[2019-03-21 08:17] LABS: ARTERIAL BLOOD FIO2 70%
[2019-03-21] MEDS ORDERED: HEPARIN SOD (PORCINE) 1,000 UNIT/ML 10 ML VIAL IV PRN (09:00)
[2019-03-21] MEDS ORDERED: (PENDING PHARMACY ID) (Umeclidinium Brm/Vilanterol Tr [Anoro Ellipta 62.5-25 Mcg Inh] 1 PU IH SCH (10:00)
[2019-03-21] MEDS: INSULIN LISPRO 100 UNIT/ML 3 ML VIAL SUBCUT SCH ×5 (10:13→23:19)
[2019-03-21] MEDS: GABAPENTIN 300 MG CAPSULE NG SCH ×2 (10:24→21:14)
--- NOTE | 2019-03-21 10:45 | RADIOLOGY REPORT (SQ) ---
EXAM DESCRIPTION: U/S LTD DUPLEX ART/JONATHAN FLOW COMPLETED DATE/TIME: 03/21/2019 9:57 am REASON FOR STUDY: unstable hemodynamics COMPARISON: None. TECHNIQUE: Realtime and static grayscale images acquired. Selected color Doppler, velocities and spe ctral images recorded. LIMITATIONS: None. FINDINGS: RIGHT KIDNEY: RENAL ARTERY VELOCITIES: Renal origin and mid artery not visualized. [place] velocity measures 80 Cm/s ec. Segmental artery velocity 32 cm/sec. RENAL VEIN: Color doppler flow present, patent. VELOCITY RATIO: 1.4. Normal waveforms. KIDNEY: Asymmetrically small measuring 10.5 cm. No significant pathology. LEFT KIDNEY: RENAL ARTERY VELOCITIES: Origin and mid artery not visualized. [place] velocity measures 131 Cm/sec. Segmental artery velocity 46 cm/sec. RENAL VEIN: Color doppler flow present, patent. VELOCITY RATIO: 2.2. Normal waveforms. KIDNEY: Normal in size measuring 12.1 cm. No significant pathology. BLADDER: Normal. OTHER: No other significant finding. IMPRESSION: NO DOPPLER EVIDENCE OF HEMODYNAMICALLY SIGNIFICANT RENAL ARTERY STENOSIS. COMMENT: NORMAL RENAL ARTERY/AORTA VELOCITY RATIO IS LESS THAN OR EQUAL TO 3.5. TECHNICAL DOCUMENTATION: JOB ID: [id number] [employer]- All Rights Reserved Reading location - IP/workstation name: [email or web address]
--- NOTE | 2019-03-21 11:41 | EKG REPORT ---
SEVERITY:- ABNORMAL ECG - SINUS RHYTHM CONSIDER ANTEROSEPTAL INFARCT REPOL ABNRM SUGGESTS ISCHEMIA, ANT-LAT LEADS : Confirmed by: Emir Benavides 21-Mar-2019 11:41:18
--- NOTE | 2019-03-21 11:41 | EKG REPORT ---
SEVERITY:- ABNORMAL ECG - SINUS RHYTHM LOW VOLTAGE IN FRONTAL LEADS CONSIDER ANTEROSEPTAL INFARCT NONSPECIFIC T ABNORMALITIES, LATERAL LEADS : Confirmed by: Emir Benavides 21-Mar-2019 11:41:12
--- NOTE | 2019-03-21 11:42 | EKG REPORT ---
SEVERITY:- OTHERWISE NORMAL ECG - SINUS TACHYCARDIA NONSPECIFIC T CHANGES : Confirmed by: Emir Benavides 21-Mar-2019 11:41:55
--- NOTE | 2019-03-21 11:42 | EKG REPORT ---
SEVERITY:- BORDERLINE ECG - SINUS RHYTHM BORDERLINE REPOL ABNORMALITY, INF-LAT LEADS : Confirmed by: Emir Benavides 21-Mar-2019 11:41:29
--- NOTE | 2019-03-21 11:42 | EKG REPORT ---
SEVERITY:- ABNORMAL ECG - SINUS TACHYCARDIA PROBABLE LEFT ATRIAL ABNORMALITY CONSIDER ANTEROSEPTAL INFARCT BORDERLINE REPOL ABNORMALITY, ANT-LAT LEADS : Confirmed by: Emir Benavides 21-Mar-2019 11:42:02
[2019-03-21] MEDS: FAMOTIDINE INJ/PF 20 MG/2 ML SDV IV SCH (12:36)
[2019-03-21 12:46] LABS: CREATINE KINASE MB 13.9 ng/mL (<4.55); TROPONIN I 4.32 ng/mL
--- NOTE | 2019-03-21 14:34 | RADIOLOGY REPORT (SQ) ---
EXAM DESCRIPTION: CT CHEST WITHOUT COMPLETED DATE/TIME: 03/21/2019 2:14 pm REASON FOR STUDY: COPD COMPARISON: 03/20/2019 11/30/2016 TECHNIQUE: Prone and supine high resolution technique imaging performed through the lungs windowed f or lung windows. Additional focused imaging through the levels of the aortic arch, ness and diaphr agm. Limited evaluation of the mediastinum. All CT scanners at this facility use dose modulation, iterative reconstruction, and/or weight based d osing when appropriate to reduce radiation dose to as low as reasonably achievable (ALARA). [facility]: Dose Right [facility]: CareDose [facility]: Dose Right [facility]: Teradose 4D [facility]: [employer] RADIATION DOSE: CT Rad equipment meets quality standard of care and radiation dose reduction techniq ues were employed. CTDIvol: 2.2 mGy. DLP: 71 mGy-cm. mGy. LIMITATIONS: None. FINDINGS: LUNGS AND PLEURA: There are moderate bilateral pleural effusions and associated bibasilar consolidation, likely atelectasis. Interlobular septal thickening with patchy additional areas of gr ound-glass attenuation throughout both lungs, likely edema. No pneumothorax. 9 mm density within th e right intrathoracic trachea, likely inspissated mucus. LIMITED MEDIASTINUM: Enlarged heart. Scattered coronary atherosclerosis. Trace pericardial effusion . BONES: No acute bony abnormality. Decreased osseous mineralization. No suspicious lytic or blastic osseous lesions. Limited evaluation secondary to scan technique. OTHER: Endotracheal tube tip within the midthoracic trachea. Enteric tube tip below diaphragm but ex cluded by collimation. IMPRESSION: 1. Findings most compatible CHF with moderate bilateral pleural effusions and bibasilar consolidation, likely atelectasis. Interlobular and septal thickening and patchy ground-glass atten uation, likely edema although superimposed infection is not entirely excluded. 2. Cardiomegaly. Coronary atherosclerosis. 3. Endotracheal tube within the midthoracic trachea. TECHNICAL DOCUMENTATION: JOB ID: [id number] Quality ID # [id number]: Final reports with documentation of one or more dose reduction techniques (e.g., Au tomated exposure control, adjustment of the mA and/or kV according to patient size, use of iterative reconstruction technique) 2010 [employer]- All Rights Reserved Reading location - IP/workstation name: [email or web address]
[2019-03-21] MEDS ORDERED: DEXMEDETOMIDINE IN 0.9 % NACL 400 MCG/100 ML RTUPB IV ONE (15:28)
[2019-03-21] MEDS: DEXMEDETOMIDINE IN NS 400 MCG/100 ML RTUPB IV PRN ×2 (15:42→23:21)
[2019-03-21] MEDS: HYDROCORTISONE SOD SUCCINATE INJ/PF 100 MG/2 ML SDV IV SCH ×2 (15:54→21:14)
[2019-03-21 16:42] LABS: ANION GAP 9 (5-19); BLOOD UREA NITROGEN 67 mg/dL (7-20); CALCIUM 7.2 mg/dL (8.4-10.2); CARBON DIOXIDE 21 mmol/L (22-30); CHLORIDE 106 mmol/L (98-107); CREATINE KINASE 232 U/L (55-170); GLUCOSE 196 mg/dL (75-110); POTASSIUM 5.8 mmol/L (3.6-5.0)
[2019-03-21 16:50] LABS: CREATINE KINASE MB 11.6 ng/mL (<4.55); TROPONIN I 4.53 ng/mL
[2019-03-21] MEDS: CEFTRIAXONE 1 GM/D5W RTU 1 GM/50 ML RTUPB IV SCH (17:44)
[2019-03-21] MEDS: HEPARIN SODIUM,PORCINE/D5W 25,000 UNIT/250 ML RTUINJ IV PRN (18:54)
--- NOTE | 2019-03-21 20:50 | XCELERA REPORT ---
[address] [address] Transthoracic Echocardiogram Report Name: JOSE GARCIA Age: 68 yrs Gender: Male : 1950 Patient Status: Inpatient Patient Location: ICU^611^A Study Date: 03/21/2019 09:32 AM Height: 70 in Weight: 221 lb BSA: 2.2 m2 Procedure: A two-dimensional transthoracic echocardiogram with color flow and Doppler was performed. The study was technically adequate with some images being suboptimal in quality. Reason For Study: SOB History: Shortness of breath. Ordering Physician: SIMRAN AVINA Performed By: Emma Reyez Interpretation Summary The left ventricle is normal in size. There is normal left ventricular wall thickness. The left ventricular ejection fraction is within normal limits. LV EF is 65% Doppler measurements suggest normal left ventricular diastolic function The left ventricular wall motion is normal. There is no thrombus. Cannot assess ASD ,VSD ,or PFO. The right ventricle is normal in size and function. The left atrium is mildly dilated. There is mild mitral annular calcification. There is no evidence of mitral valve prolapse. There is no vegetation seen on the mitral valve. There is no mitral valve stenosis. There is a mild amount of mitral regurgitation There is no aortic valvular vegetation. There is no aortic valve stenosis No aortic regurgitation is present. There is no LVOT obstruction. There is no tricuspid stenosis. There is a trace amount of tricuspid regurgitation Tricuspid regurgitation jet envelope not well defined to measure RV systolic pressure accurately. There is no pulmonic valvular stenosis. There is no pulmonic valvular regurgitation. There is no pericardial effusion. MMode/2D Measurements & Calculations RVDd: 3.0 cm LVIDd: 5.5 cm FS: 37.0 % Ao root diam: 3.0 cm IVSd: 0.92 cm LVIDs: 3.5 cm EDV(Teich): 148.0 ml Ao root area: 6.9 cm2 LVPWd: 1.0 cm ESV(Teich): 49.8 ml EF(Teich): 66.4 % Doppler Measurements & Calculations MV E max judith: MV dec slope: Ao V2 max: LV V1 max P.0 cm/sec 605.1 cm/sec2 109.9 cm/sec 2.1 mmHg MV A max judith: MV dec time: 0.20 sec Ao max PG: LV V1 max: 43.5 cm/sec 4.8 mmHg 71.6 cm/sec MV E/A: 2.7 PA V2 max: 64.7 cm/sec PA max P.7 mmHg Left Ventricle The left ventricle is normal in size. There is normal left ventricular wall thickness. The left ventricular ejection fraction is within normal limits. LV EF is 65%. Doppler measurements suggest normal left ventricular diastolic function. The left ventricular wall motion is normal. There is no thrombus. Cannot assess ASD ,VSD ,or PFO. Right Ventricle The right ventricle is normal in size and function. Atria The right atrium is normal. The left atrium is mildly dilated. Mitral Valve There is mild mitral annular calcification. There is no evidence of mitral valve prolapse. There is no vegetation seen on the mitral valve. There is no mitral valve stenosis. There is a mild amount of mitral regurgitation. Aortic Valve There is no aortic valvular vegetation. There is no aortic valve stenosis. There is no LVOT obstruction. No aortic regurgitation is present. Tricuspid Valve There is no tricuspid stenosis. There is a trace amount of tricuspid regurgitation. Tricuspid regurgitation jet envelope not well defined to measure RV systolic pressure accurately. Pulmonic Valve There is no pulmonic valvular stenosis. There is no pulmonic valvular regurgitation. Great Vessels The aortic root is normal size. The inferior vena cava was not well visualized. Effusions There is no pericardial effusion. : SIMRAN AVINA Lakshmi
[2019-03-21] MEDS: AZITHROMYCIN 500 MG in DEXTROSE 5%-WATER 250 ML IV SCH (21:14)
[2019-03-21] MEDS ORDERED: VANCOMYCIN HCL 1,250 MG in DEXTROSE 5%-WATER 250 ML IV SCH (22:00)
--- NOTE | 2019-03-21 23:19 | Progress Note ---
Provider Note Provider Note: CARDIOLOGY PROGRESS NOTE by Dr. Simran Sanchez on 03/21/2019. SUBJECTIVE: The patient yesterday had sudden elevation of blood pressure and had severe respiratory distress initially was seen to be in congestive heart failure. He was transferred to the ICU and intubated subsequent intubation the patient blood pressure dropped to 6 systolic. This responded to IV fluids and subsequently the patient now is on Michael-Synephrine 40 mcg/min. There is no arrhythmia seen on the monitor. The patient's troponin is rising. There are no major EKG changes. His echo shows no wall motion of normality and normal LV ejection. RECORDS from Dr. Raygoza'gs office: The patient has been diagnosed as having peripheral vascular disease, moderate COPD, and his GFR was 33 mL/min the patient has chronic kidney disease stage III. There is no history of prior coronary artery disease or myocardial infarction. PHYSICAL EXAMINATION: The patient is mildly obese. He is on the ventilator. He is sedated. Selected Entries 03/21/19 08:00 Temperature 98.4 F Temperature Axillary Source Pulse Rate 89 Respiratory 13 Rate Blood Pressure 111/78 [Left Upper Arm ] Blood Pressure 89 Mean [Left Upper Arm] Blood Pressure Supine Position [Left Upper Arm] O2 Sat by Pulse 92 Oximetry Oxygen Delivery Mechanical Method ( Ventilator includes room air) Fraction of 70 Inspired Oxygen (FIO2) HEAD: Is atraumatic. Normocephalic. EYES: Pupils are equal round reactive to light. ENT is negative. NECK: Supple. There is no JVD. There is mild accessory muscle respiration use. Trachea central. LUNGS: There is diminished air entry and prolonged expiration. On percussion there is hyperresonance. There is a few dry crackles of the right base. HEART: S1-S2 is heard. There is no S3 gallop. There is no S4 gallop there is systolic murmur in the left sternal border and the apex there is no rub. ABDOMEN: Is obese. There is no hepatospleno megaly. Bowel sounds well heard. EXTREMITIES: Femorals are diminished there is no femoral bruits. Leg pulses are diminished. There is tra ce pedal edema in the right lower extremity. There is no DVT or cellulitis. There is no calf tenderness. There is no cyanosis or clubbing. STOVE MECHANIC and PSYCHIATRIC: Not examined due to patient being intubated and sedated. Labs- All tests 24 hr 03/21/19 03/21/19 03/21/19 00:49 01:55 03:57 WBC 19.4 H RBC 3.67 L Hgb 10.9 L Hct 33.4 L MCV 91 MCH 29.9 MCHC 32.7 RDW 14.4 H Plt Count 212 APTT 62.1 H Carbonic Acid HCO3/H2CO3 Ratio ABG pH ABG pCO2 ABG pO2 ABG HCO3 ABG Total CO2 ABG O2 Saturation ABG Base Excess FiO2 Sodium Potassium Chloride Carbon Dioxide Anion Gap BUN Creatinine Est GFR ( Amer) Est GFR (MDRD) Non-Af Glucose POC Glucose Calcium Creatine Kinase CK-MB (CK-2) Troponin I Random Cortisol Urine Color YELLOW Urine Appearance SLIGHTLY-CLOUDY Urine pH 5.0 Ur Specific [place] 1.013 Urine Protein >=500 H Urine Glucose (UA) 50 H Urine Ketones NEGATIVE Urine Blood LARGE H Urine Nitrite NEGATIVE Urine Bilirubin NEGATIVE Urine Urobilinogen NEGATIVE Ur Leukocyte Esterase NEGATIVE Urine WBC (Auto) 4 Urine RBC (Auto) 53 U Hyaline Cast (Auto) 10 Squamous Epi Cells Auto 1 Urine Mucus (Auto) RARE Urine Ascorbic Acid NEGATIVE 03/21/19 03/21/19 03/21/19 03:57 06:10 06:10 WBC RBC Hgb Hct MCV MCH MCHC RDW Plt Count APTT Carbonic Acid HCO3/H2CO3 Ratio ABG pH ABG pCO2 ABG pO2 ABG HCO3 ABG Total CO2 ABG O2 Saturation ABG Base Excess FiO2 Sodium 136.3 L Potassium 5.8 H D Chloride 107 Carbon Dioxide 20 L Anion Gap 9 BUN 61 H Creatinine 2.48 H Est GFR ( Amer) 32 L Est GFR (MDRD) Non-Af 26 L Glucose 270 H POC Glucose Calcium 7.4 L Creatine Kinase 353 H CK-MB (CK-2) 17.60 H Troponin I 5.350 Random Cortisol Urine Color Urine Appearance Urine pH Ur Specific [place] Urine Protein Urine Glucose (UA) Urine Ketones Urine Blood Urine Nitrite Urine Bilirubin Urine Urobilinogen Ur Leukocyte Esterase Urine WBC (Auto) Urine RBC (Auto) U Hyaline Cast (Auto) Squamous Epi Cells Auto Urine Mucus (Auto) Urine Ascorbic Acid 03/21/19 03/21/19 03/21/19 08:10 09:23 11:57 WBC RBC Hgb Hct MCV MCH MCHC RDW Plt Count APTT Carbonic Acid 1.52 H HCO3/H2CO3 Ratio 13:1 ABG pH 7.22 L ABG pCO2 50.5 H ABG pO2 80.7 ABG HCO3 20.1 ABG Total CO2 21.7 L ABG O2 Saturation 93.5 L ABG Base Excess -7.6 FiO2 70% Sodium Potassium Chloride Carbon Dioxide Anion Gap BUN Creatinine Est GFR ( Amer) Est GFR (MDRD) Non-Af Glucose POC Glucose 241 H Calcium Creatine Kinase 258 H CK-MB (CK-2) Troponin I Random Cortisol Urine Color Urine Appearance Urine pH Ur Specific [place] Urine Protein Urine Glucose (UA) Urine Ketones Urine Blood Urine Nitrite Urine Bilirubin Urine Urobilinogen Ur Leukocyte Esterase Urine WBC (Auto) Urine RBC (Auto) U Hyaline Cast (Auto) Squamous Epi Cells Auto Urine Mucus (Auto) Urine Ascorbic Acid 03/21/19 03/21/19 03/21/19 11:57 11:57 12:26 WBC RBC Hgb Hct MCV MCH MCHC RDW Plt Count APTT Carbonic Acid HCO3/H2CO3 Ratio ABG pH ABG pCO2 ABG pO2 ABG HCO3 ABG Total CO2 ABG O2 Saturation ABG Base Excess FiO2 Sodium Potassium Chloride Carbon Dioxide Anion Gap BUN Creatinine Est GFR ( Amer) Est GFR (MDRD) Non-Af Glucose POC Glucose 253 H Calcium Creatine Kinase CK-MB (CK-2) 13.90 H Troponin I 4.320 Random Cortisol 4.47 Urine Color Urine Appearance Urine pH Ur Specific [place] Urine Protein Urine Glucose (UA) Urine Ketones Urine Blood Urine Nitrite Urine Bilirubin Urine Urobilinogen Ur Leukocyte Esterase Urine WBC (Auto) Urine RBC (Auto) U Hyaline Cast (Auto) Squamous Epi Cells Auto Urine Mucus (Auto) Urine Ascorbic Acid 03/21/19 03/21/19 03/21/19 16:08 16:08 17:32 WBC RBC Hgb Hct MCV MCH MCHC RDW Plt Count APTT Carbonic Acid HCO3/H2CO3 Ratio ABG pH ABG pCO2 ABG pO2 ABG HCO3 ABG Total CO2 ABG O2 Saturation ABG Base Excess FiO2 Sodium 136.1 L Potassium 5.8 H Chloride 106 Carbon Dioxide 21 L Anion Gap 9 BUN 67 H Creatinine 2.64 H Est GFR ( Amer) 29 L Est GFR (MDRD) Non-Af 24 L Glucose 196 H POC Glucose 181 H Calcium 7.2 L Creatine Kinase 232 H CK-MB (CK-2) 11.60 H Troponin I 4.530 Random Cortisol Urine Color Urine Appearance Urine pH Ur Specific [place] Urine Protein Urine Glucose (UA) Urine Ketones Urine Blood Urine Nitrite Urine Bilirubin Urine Urobilinogen Ur Leukocyte Esterase Urine WBC (Auto) Urine RBC (Auto) U Hyaline Cast (Auto) Squamous Epi Cells Auto Urine Mucus (Auto) Urine Ascorbic Acid 03/21/19 22:41 WBC RBC Hgb Hct MCV MCH MCHC RDW Plt Count APTT Carbonic Acid HCO3/H2CO3 Ratio ABG pH ABG pCO2 ABG pO2 ABG HCO3 ABG Total CO2 ABG O2 Saturation ABG Base Excess FiO2 Sodium Potassium Chloride Carbon Dioxide Anion Gap BUN Creatinine Est GFR ( Amer) Est GFR (MDRD) Non-Af Glucose POC Glucose 264 H Calcium Creatine Kinase CK-MB (CK-2) Troponin I Random Cortisol Urine Color Urine Appearance Urine pH Ur Specific [place] Urine Protein Urine Glucose (UA) Urine Ketones Urine Blood Urine Nitrite Urine Bilirubin Urine Urobilinogen Ur Leukocyte Esterase Urine WBC (Auto) Urine RBC (Auto) U Hyaline Cast (Auto) Squamous Epi Cells Auto Urine Mucus (Auto) Urine Ascorbic Acid Chest X-Ray 03/20/19 00:00 IMPRESSION: Worsening congestive failure with interstitial pulmonary edema. Chest X-Ray 03/20/19 00:00 IMPRESSION: Endotracheal tube is in place. Moderate pulmonary edema. Findings correlate from prior study. Chest X-Ray 03/20/19 02:37 IMPRESSION: Mild increased reticular interstitial changes may all be chronic in nature but cannot exclude minimal edema or atypical pneumonia. Correlation with an old exam or short-term follow-up will be useful. Vascular Ultrasound 03/21/19 07:41 IMPRESSION: NO DOPPLER EVIDENCE OF HEMODYNAMICALLY SIGNIFICANT RENAL ARTERY STENOSIS. Chest CT 03/21/19 13:00 IMPRESSION: 1. Findings most compatible CHF with moderate bilateral pleural effusions and bibasilar consolidation, likely atelectasis. Interlobular and septal thickening and patchy ground-glass attenuation, likely edema although superimposed infection is not entirely excluded. 2. Cardiomegaly. Coronary atherosclerosis. 3. Endotracheal tube within the midthoracic trachea. SR] . SINUS RHYTHM [LVOLF] . LOW VOLTAGE IN FRONTAL LEADS [AMI8] . CONSIDER ANTEROSEPTAL INFARCT versus lead placement. [T1LA] . NONSPECIFIC minor T flattening diffusely. IMPRESSION/RECOMMENDATION: 1. Acute on probably chronic respiratory failure: Continue ventilators, continue antibiotics. 2. COPD: Continue ventilator support. Continue bronchodilators and antibiotics. 3. Elevated troponin I: Non-ST elevation CA versus secondary to supply demand mismatch. Continue IV heparin until the troponin starts trending down. Will recheck troponin I and EKG in the a.m. 4. Acute on chronic kidney disease. The patient's current baseline CKD stage III. At present stage IV. Avoid nephrotoxic drugs. 5. Right lower lobe pneumonia: Continue antibiotics. 6.Hypotension: Most likely secondary infection. Continue Michael-Synephrine. 7. History of hypertension: At present patient blood pressure low requiring pressors. 8. Diabetes mellitus: Continue insulin as per blood sugar checks. 9. Possible interstitial lung disease.: The CT scan is reported as findings which did not support ILD. But will discuss with radiology. 10. Episodic heart failure secondary to hypertensive blood pressure spikes. Note that the patient's LV ejection fraction is normal. 11. Peripheral vascular disease as per history. Once the patient is extubated would recommend the patient have IV Lexiscan Cardiolite stress test to see if the patient does indeed have coronary artery disease. Occasions reviewed. Medications adjusted. Management plan discussed with the attending physician on the case. 40 minutes spent on this patient more than 50% of time spent in direct patient care. Will follow
[2019-03-22] MEDS: LORAZEPAM INJ 2 MG/1 ML VIAL IV PRN ×3 (00:19→16:40)
[2019-03-22] MEDS: FENTANYL CITRATE INJ/PF 100 MCG/2 ML AMPUL IV PRN ×4 (01:41→21:00)
[2019-03-22] MEDS: NORMAL SALINE 1000 ML 1,000 ML IV PRN (03:15)
[2019-03-22] MEDS: HYDROCORTISONE SOD SUCCINATE INJ/PF 100 MG/2 ML SDV IV SCH ×3 (05:39→21:27)
[2019-03-22] MEDS: INSULIN LISPRO 100 UNIT/ML 3 ML VIAL SUBCUT SCH ×4 (05:39→23:11)
[2019-03-22 06:08] LABS: HEMATOCRIT 38.6 % (37.9-51.0); HEMOGLOBIN 12.9 g/dL (13.5-17.0); MEAN CORPUSCULAR HEMOGLOBIN 30.7 pg (27.0-33.4); MEAN CORPUSCULAR HGB CONC 33.3 g/dL (32.0-36.0); MEAN CORPUSCULAR VOLUME 92 fl (80-97); PLATELET COUNT 138 10^3/uL (150-450); RED BLOOD COUNT 4.19 10^6/uL (4.35-5.55); RED CELL DISTRIBUTION WIDTH 14.9 % (11.5-14.0); WHITE BLOOD COUNT 10.1 10^3/uL (4.0-10.5)
[2019-03-22 06:26] LABS: ANION GAP 10 (5-19); BLOOD UREA NITROGEN 74 mg/dL (7-20); CARBON DIOXIDE 18 mmol/L (22-30); CHLORIDE 106 mmol/L (98-107); GLUCOSE 266 mg/dL (75-110)
[2019-03-22] MEDS: DEXMEDETOMIDINE IN NS 400 MCG/100 ML RTUPB IV PRN ×6 (06:44→21:23)
[2019-03-22 06:50] LABS: CALCIUM 7.2 mg/dL (8.4-10.2)
[2019-03-22 06:52] LABS: POTASSIUM 6.2 mmol/L (3.6-5.0)
[2019-03-22] MEDS ORDERED: SODIUM POLYSTYRENE SULFONATE 15 GM/60 ML PO ONE ×2 (06:53→16:00)
[2019-03-22] MEDS ORDERED: INSULIN REG, HUMAN 100 UNIT/ML 3 ML VIAL (PYX) IV ONE (06:54)
--- NOTE | 2019-03-22 07:16 | PDOC PROGRESS REPORT ---
Subjective Progress Note for:: 03/22/19 Subjective:: Patient still intubated and sedated. Occasionally agitated Reason For Visit: ACUTE HYPOXIC RESPIRATORY FAILURE,ACUTE KIDNEY Physical Exam Vital Signs: Temp Pulse Resp BP Pulse Ox 98.6 F 68 21 H 136/76 H 95 03/22/19 06:00 03/21/19 22:00 03/22/19 06:20 03/22/19 06:20 03/22/19 06:20 Intake & Output 03/21/19 03/22/19 03/23/19 06:59 06:59 06:59 Intake Total 2620 2812 Output Total 185 600 Balance 2435 2212 Weight 100.6 kg 108.6 kg Additional Comments: Mostly well sedated but occasionally gets agitated Eye exam: PRESENT: PERRLA Ear exam: PRESENT: normal external ear exam Additional comments: ETT and NG in nostril present. Teeth exam: PRESENT: edentulous Respiratory exam: PRESENT: clear to auscultation zachariah, decreased breath sounds Additional comments: Scant secretions Cardiovascular exam: PRESENT: RRR GI/Abdominal exam: PRESENT: soft Rectal exam: PRESENT: deferred Extremities exam: PRESENT: full ROM Additional comments: On precesex and versed Skin exam: PRESENT: normal color Results Laboratory Results: 03/22/19 05:31 03/22/19 05:31 03/21/19 03/21/19 03/22/19 08:10 16:08 05:31 WBC 10.1 RBC 4.19 L Hgb 12.9 L Hct 38.6 MCV 92 MCH 30.7 MCHC 33.3 RDW 14.9 H Plt Count 138 L Carbonic Acid 1.52 H HCO3/H2CO3 Ratio 13:1 ABG pH 7.22 L ABG pCO2 50.5 H ABG pO2 80.7 ABG HCO3 20.1 ABG O2 Saturation 93.5 L ABG Base Excess -7.6 FiO2 70% Sodium 136.1 L Potassium 5.8 H Chloride 106 Carbon Dioxide 21 L Anion Gap 9 BUN 67 H Creatinine 2.64 H Est GFR ( Amer) 29 L Glucose 196 H Calcium 7.2 L 03/22/19 05:31 WBC RBC Hgb Hct MCV MCH MCHC RDW Plt Count Carbonic Acid HCO3/H2CO3 Ratio ABG pH ABG pCO2 ABG pO2 ABG HCO3 ABG O2 Saturation ABG Base Excess FiO2 Sodium 133.9 L Potassium 6.2 H* Chloride 106 Carbon Dioxide 18 L Anion Gap 10 BUN 74 H Creatinine 3.51 H Est GFR ( Amer) 21 L Glucose 266 H Calcium 7.2 L 03/20/19 03/20/19 03/20/19 02:40 02:40 07:06 Creatine Kinase 109 CK-MB (CK-2) 2.86 Cancelled Troponin I 0.040 Cancelled NT-Pro-B Natriuret Pep 4540 H 03/20/19 03/20/19 03/20/19 07:54 12:30 17:52 Creatine Kinase CK-MB (CK-2) 10.90 H Troponin I 0.648 1.770 3.420 NT-Pro-B Natriuret Pep 03/21/19 03/21/19 03/21/19 06:10 06:10 11:57 Creatine Kinase 353 H 258 H CK-MB (CK-2) 17.60 H Troponin I 5.350 NT-Pro-B Natriuret Pep 03/21/19 03/21/19 03/21/19 11:57 16:08 16:08 Creatine Kinase 232 H CK-MB (CK-2) 13.90 H 11.60 H Troponin I 4.320 4.530 NT-Pro-B Natriuret Pep 03/22/19 05:31 Creatine Kinase CK-MB (CK-2) Troponin I 3.240 NT-Pro-B Natriuret Pep Impressions: Chest X-Ray 03/20/19 02:37 IMPRESSION: Mild increased reticular interstitial changes may all be chronic in nature but cannot exclude minimal edema or atypical pneumonia. Correlation with an old exam or short-term follow-up will be useful. Vascular Ultrasound 03/21/19 07:41 IMPRESSION: NO DOPPLER EVIDENCE OF HEMODYNAMICALLY SIGNIFICANT RENAL ARTERY STENOSIS. Chest CT 03/21/19 13:00 IMPRESSION: 1. Findings most compatible CHF with moderate bilateral pleural effusions and bibasilar consolidation, likely atelectasis. Interlobular and septal thickening and patchy ground-glass attenuation, likely edema although superimposed infection is not entirely excluded. 2. Cardiomegaly. Coronary atherosclerosis. 3. Endotracheal tube within the midthoracic trachea. Assessment & Plan - Diagnosis (1) Personal history of renal artery stenosis Is this a current diagnosis for this admission?: Yes Plan: No evidence of stenosis by U/S. However BUN/CR stil going up. (2) Acute hypoxemic respiratory failure Is this a current diagnosis for this admission?: Yes (3) Acute kidney injury Is this a current diagnosis for this admission?: Yes Plan: Probably multifactorial. Hypoxia before intubation, hypotension in and around intubation. Phenlyephrine, Vanco all contributing. Plan to give insulin, Kayexalate, lasix. Repeat BMP at 1P. (4) COPD with exacerbation Is this a current diagnosis for this admission?: Yes Plan: Severe, continua Anora, albuterol added, steroids and try weaning. Probably not extubatable. (5) Pulmonary artery hypertension Is this a current diagnosis for this admission?: Yes Plan: Should improve with fluid off. (6) Malnutrition of mild degree Is this a current diagnosis for this admission?: Yes Plan: Start Nepro today. - Time Time Spent with patient: 35 or more minutes Total Critical Time (Minutes): 40 Medications reviewed and adjusted accordingly: Yes Anticipated discharge: Acute Rehab Within: Other Disposition: Cant predict
[2019-03-22] MEDS ORDERED: FUROSEMIDE INJ/PF 40 MG/4 ML SDV IV ONE (07:30)
[2019-03-22] MEDS ORDERED: HYDROMORPHONE HCL INJ/PF 2 MG/ML AMPULE ONE (08:02)
[2019-03-22] MEDS: HYDROMORPHONE HCL INJ/PF 2 MG/ML AMPULE IV PRN ×3 (08:10→22:06)
[2019-03-22] MEDS: ALBUTEROL SULFATE 0.042% NEB (1.25 MG/3 ML) AMPUL NEB SCH ×4 (08:44→20:20)
--- NOTE | 2019-03-22 09:18 | EKG REPORT ---
SEVERITY:- ABNORMAL ECG - SINUS RHYTHM LOW VOLTAGE IN FRONTAL LEADS NONSPECIFIC T ABNORMALITIES, LATERAL LEADS : Confirmed by: Emir Benavides 22-Mar-2019 09:17:18
[2019-03-22] MEDS: HEPARIN SOD (PORCINE) 5,000 UNIT/ML 1 ML VIAL SUBCUT SCH ×2 (11:24→21:39)
[2019-03-22] MEDS: GABAPENTIN 300 MG CAPSULE NG SCH ×2 (11:25→21:27)
[2019-03-22] MEDS: FAMOTIDINE INJ/PF 20 MG/2 ML SDV IV SCH (11:25)
[2019-03-22] MEDS: DEXTROSE 5%-WATER 1000 ML 1,000 ML with SODIUM BICARBONATE 150 MEQ IV PRN ×2 (12:48)
--- NOTE | 2019-03-22 12:59 | PDOC CONSULTATION ---
Consultation Consult Date: 03/22/19 Provider Consulted: Dorothy SANTO Consult reason:: VIDYA History of Present Illness Admission Date/PCP: 03/20/19 08:23 REYNA PENN MD History of Present Illness: JOSE GARCIA is a 68 year old male with a back ground history of [id number] diabetes mellitus, hypertension, hyperlipidemia,chronic smoker who just recently quit a few weeks ago Was admitted with a history of progressive dyspnea over a week prior to admission. He denied any history of chest pains or pedal edema. No apparent history of any coughing spells fever or chills. Patient is currently in the ICU intubated and sedated and unable to cooperate in any of the history taking. Therefore the chart review was done and discussions were done with the treating nurse and the bleach boiler puller. Initial evaluations in the ER revealed that he was hypoxic on presentation and required supplemental O2, and put on BiPAP. His BNP was elevated and so he was given a dose of Lasix, and soon after that he apparently became hypotensive and tachycardic. Further relevant diagnostics done during admission on the showed his creatinine 2.1. Unsure of any underlying kidney disease but there is a history from Dr. Sanchez's notes that the patient has got some CKD apparently stage III as per review of primary care notes. Patient has also been on antibiotics including vancomycin. Patient was initially admitted to the floor but then he began to develop progressive respiratory failure and was severely hypertensive. He was then transferred to the ICU where he was intubated with propofol. He then dropped his blood pressure and had to be treated with fluids as well as NeoSynephrine for about 24 hours. He was also begun on Solu-Medrol and he has become normotensive with discontinuation of the Michael-Synephrine at the moment. As of the the patient's creatinine jumped to 2.4 and currently is at 3.5. His vancomycin was held on 03/21. No vancomycin levels have been drawn. Patient is currently nonoliguric.Other relevant evaluations done were reviewed. There was a renal Doppler study done which shows normal velocities but some size differential. He also had an echocardiogram done which showed normal LV ejection fraction and a right heart study. Past Medical History Cardiac Medical History: Reports: Hypertension-primary Denies: Coronary Artery Disease, Myocardial Infarction Pulmonary Medical History: Reports: Chronic Obstructive Pulmonary Disease (COPD) Denies: Asthma, Bronchitis, Pneumonia EENT Medical History: Reports: None Neurological Medical History: Reports: None Denies: Seizures Endocrine Medical History: Reports: Diabetes Mellitus Type 2 Complications of Diabetes: Reports: None Renal/ Medical History: Reports: None Malignancy Medical History: Reports: None GI Medical History: Reports: None Musculoskeltal Medical History: Reports: None Denies: Arthritis Skin Medical History: Reports: None Psychiatric Medical History: Reports: None Traumatic Medical History: Reports: None Infectious Medical History: Reports: None Past Surgical History Past Surgical History: Reports: None Social History Lives with: Family Smoking Status: Former Smoker Frequency of Alcohol Use: None Hx Recreational Drug Use: No Drugs: None Hx Prescription Drug Abuse: No Family History Parental Family History Reviewed: No Children Family History Reviewed: No Sibling(s) Family History Reviewed.: No Medication/Allergy Home Medications: Atorvastatin Calcium [Lipitor 40 mg Tablet] 40 mg PO QHS 03/20/19 Fenofibrate,Micronized [Fenofibrate] 134 mg PO DAILY 03/20/19 Gabapentin [Neurontin 300 mg Capsule] 300 mg PO Q12 03/20/19 Glipizide [Glucotrol 5 mg Tablet] 5 mg PO BID 03/20/19 Lisinopril/Hydrochlorothiazide [Lisinopril-Hctz 10-12.5 mg Tab] 1 tab PO DAILY 03/20/19 Metformin HCl [Glucophage 500 mg Tablet] 1,000 mg PO BID 03/20/19 Umeclidinium Brm/Vilanterol Tr [Anoro Ellipta 62.5-25 Mcg INH] 1 puff IH DAILY 03/20/19 Allergies/Adverse Reactions: No Known Allergies Allergy (Verified 02/15/18 08:16) Review of Systems ROS unobtainable: Due to mental status Review of Systems: Patient is currently intubated and sedated. Therefore chart review was done and discussions were done with the treating nurse. Physical Exam Vital Signs: Temp Pulse Resp BP Pulse Ox 98.0 F 74 15 125/69 93 03/22/19 12:00 03/22/19 12:00 03/22/19 12:00 03/22/19 12:00 03/22/19 12:00 Intake & Output 03/21/19 03/22/19 03/23/19 06:59 06:59 06:59 Intake Total 2620 2812 100 Output Total 185 600 295 Balance 2435 2212 -195 Weight 100.6 kg 108.6 kg Exam: Currently intubated and sedated. Eye exam: PRESENT: EOMI, PERRLA Ear exam: PRESENT: normal external ear exam Mouth exam: PRESENT: neck supple Neck exam: ABSENT: meningismus, tenderness, thyromegaly, tracheal deviation Respiratory exam: PRESENT: clear to auscultation zachariah. ABSENT: crackles Cardiovascular exam: PRESENT: +S1, +S2 GI/Abdominal exam: PRESENT: normal bowel sounds, soft. ABSENT: organomegaly, tenderness Extremities exam: ABSENT: pedal edema Skin exam: ABSENT: erythema, mottled, rash Results Laboratory Results: 03/22/19 05:31 03/22/19 05:31 03/21/19 03/22/19 03/22/19 16:08 05:31 05:31 WBC 10.1 RBC 4.19 L Hgb 12.9 L Hct 38.6 MCV 92 MCH 30.7 MCHC 33.3 RDW 14.9 H Plt Count 138 L Sodium 136.1 L 133.9 L Potassium 5.8 H 6.2 H* Chloride 106 106 Carbon Dioxide 21 L 18 L Anion Gap 9 10 BUN 67 H 74 H Creatinine 2.64 H 3.51 H Est GFR ( Amer) 29 L 21 L Glucose 196 H 266 H Calcium 7.2 L 7.2 L 03/20/19 03/20/19 03/20/19 02:40 02:40 07:06 Creatine Kinase 109 CK-MB (CK-2) 2.86 Cancelled Troponin I 0.040 Cancelled NT-Pro-B Natriuret Pep 4540 H 03/20/19 03/20/19 03/20/19 07:54 12:30 17:52 Creatine Kinase CK-MB (CK-2) 10.90 H Troponin I 0.648 1.770 3.420 NT-Pro-B Natriuret Pep 03/21/19 03/21/19 03/21/19 06:10 06:10 11:57 Creatine Kinase 353 H 258 H CK-MB (CK-2) 17.60 H Troponin I 5.350 NT-Pro-B Natriuret Pep 03/21/19 03/21/19 03/21/19 11:57 16:08 16:08 Creatine Kinase 232 H CK-MB (CK-2) 13.90 H 11.60 H Troponin I 4.320 4.530 NT-Pro-B Natriuret Pep 03/22/19 05:31 Creatine Kinase CK-MB (CK-2) Troponin I 3.240 NT-Pro-B Natriuret Pep Impressions: Chest X-Ray 03/20/19 02:37 IMPRESSION: Mild increased reticular interstitial changes may all be chronic in nature but cannot exclude minimal edema or atypical pneumonia. Correlation with an old exam or short-term follow-up will be useful. Vascular Ultrasound 03/21/19 07:41 IMPRESSION: NO DOPPLER EVIDENCE OF HEMODYNAMICALLY SIGNIFICANT RENAL ARTERY STENOSIS. Chest CT 03/21/19 13:00 IMPRESSION: 1. Findings most compatible CHF with moderate bilateral pleural effusions and bibasilar consolidation, likely atelectasis. Interlobular and septal thickening and patchy ground-glass attenuation, likely edema although superimposed infection is not entirely excluded. 2. Cardiomegaly. Coronary atherosclerosis. 3. Endotracheal tube within the midthoracic trachea. Assessment & Plan - Diagnosis (1) Acute hypoxemic respiratory failure Is this a current diagnosis for this admission?: Yes Plan: Currently intubated and sedated. Differential diagnosis is from acute exacerbation of COPD versus others. (2) Acute kidney injury Is this a current diagnosis for this admission?: Yes Plan: Patient's admission creatinine on the was 2.1 and then advance rapidly now to 3.5. Currently nonoliguric. Unsure of baseline renal functions but mention from Dr. Sanchez's notes saying that he has CKD stage III based on review of primary care notes. I will try to review that. Differential diagnosis includes Hypotensive ATN/ vancomycin toxicity. Vanc has been held. Will order randomn vanc levels today. Continue gentle hydration in the meanwhile. Order renal ultrasound as the looks like there looks like size differential seen on renal Doppler studies. Renal Dopplers were negative for any velocity changes. (3) COPD with exacerbation Is this a current diagnosis for this admission?: Yes Plan: As per bleach boiler puller. Currently in respiratory failure and intubated and sedated.CT scan suggestive of mucous plugging. Might help with bronchial lavage. (4) Sepsis Plan: Elevated white count with left shift. Patient currently on IV Rocephin. Sputum aspirate growing gram-negative rods. (5) Hyperkalemia Plan: Todays potassium was 6. Will suggest treatment with IV calcium, Kayexalate and insulin with dextrose. Note patient is also on albuterol nebulizers which will also help. Repeat labs in 6 hours after that. (6) Metabolic acidosis Plan: Non-gap. Low-dose of bicarbonate would also help with the hyperkalemia for the moment. (7) Diabetes 1.5, managed as type 2 Plan: Treat sliding-scale
[2019-03-22 13:31] LABS: ANION GAP 11 (5-19); BLOOD UREA NITROGEN 78 mg/dL (7-20); CALCIUM 7.2 mg/dL (8.4-10.2); CARBON DIOXIDE 18 mmol/L (22-30); CHLORIDE 107 mmol/L (98-107); GLUCOSE 219 mg/dL (75-110)
[2019-03-22 13:35] LABS: POTASSIUM 6.1 mmol/L (3.6-5.0); VANCOMYCIN,TROUGH 17.1 ug/mL (5.0-20.0)
--- NOTE | 2019-03-22 16:59 | Progress Note ---
Provider Note Provider Note: Called to see pt for 'cuff leak'. Pt stable but albuterol coming from mouth. Tube repositioned, twice. Very deep. At 25 at lips. BS bilateral
--- NOTE | 2019-03-22 17:16 | RADIOLOGY REPORT (SQ) ---
EXAM DESCRIPTION: CHEST SINGLE VIEW COMPLETED DATE/TIME: 03/22/2019 4:59 pm REASON FOR STUDY: ET TUBE PLACEMENT COMPARISON: CT chest 03/21/2019 Chest films 03/20/2019 EXAM PARAMETERS: NUMBER OF VIEWS: One view. TECHNIQUE: Single frontal radiographic view of the chest acquired. RADIATION DOSE: NA LIMITATIONS: None. FINDINGS: 2 films are submitted. The 1st film demonstrates the endotracheal tube at the level of th e clavicular heads, at least 10 cm above the nses. The 2nd film shows advancement of the endotrach eal tube which is now in the mid trachea, about 5 to 6 cm above the ness. These findings were disc ussed with the patient's nurse in ICU. LUNGS AND PLEURA: Persistent pleural effusions with bibasilar airspace disease unchanged. No pneumot horax MEDIASTINUM AND HILAR STRUCTURES: No masses. Contour normal. HEART AND VASCULAR STRUCTURES: Borderline cardiomegaly BONES: No acute findings. HARDWARE: Endotracheal tube nasogastric tube in good positioning. OTHER: No other significant finding. IMPRESSION: Endotracheal tube, nasogastric tube in good positioning of the 2nd film. Unchanged bilateral pleural effusions with bibasilar airspace disease TECHNICAL DOCUMENTATION: JOB ID: [id number] [employer]- All Rights Reserved Reading location - IP/workstation name: [email or web address]
[2019-03-22] MEDS: CEFTRIAXONE 1 GM/D5W RTU 1 GM/50 ML RTUPB IV SCH (18:02)
[2019-03-22 18:41] LABS: ANION GAP 13 (5-19); BLOOD UREA NITROGEN 80 mg/dL (7-20); CARBON DIOXIDE 17 mmol/L (22-30); CHLORIDE 105 mmol/L (98-107); GLUCOSE 298 mg/dL (75-110); POTASSIUM 5.7 mmol/L (3.6-5.0)
[2019-03-22 18:55] LABS: CALCIUM 6.9 mg/dL (8.4-10.2)
[2019-03-22] MEDS ORDERED: CALCIUM GLUCONATE 1000 MG/10 ML INJ IV ONE ×2 (19:02→21:20)
[2019-03-22] MEDS ORDERED: CALCIUM GLUCONATE 2,000 MG in DEXTROSE 5%-WATER 100 ML IV ONE (20:00)
--- NOTE | 2019-03-22 22:43 | Progress Note ---
Provider Note Provider Note: CARDIOLOGY PROGRESS NOTE by Dr. Simran Sanchez on 03/22/2019. Subjective the patient is intubated and sedated. There is no arrhythmia seen on the monitor. PHYSICAL EXAMINATION: The patient is mildly obese. Is not fighting the ventilator. Selected Entries 03/22/19 16:00 Temperature 99.9 F Temperature Axillary Source Pulse Rate 80 Respiratory 18 Rate Blood Pressure 141/69 H [Left Upper Arm ] Blood Pressure 93 Mean [Left Upper Arm] Blood Pressure Supine Position [Left Upper Arm] O2 Sat by Pulse 91 L Oximetry Oxygen Delivery Mechanical Method ( Ventilator includes room air) Fraction of 55 Inspired Oxygen (FIO2) HEAD: Is atraumatic. Normocephalic. EYES: Pupils are equal round reactive to light. ENT is negative. NECK: Supple. There is no JVD. There is mild accessory muscle respiration use. Trachea central. LUNGS: There is diminished air entry and prolonged expiration. On percussion there is hyperresonance. There is a few dry crackles of the right base. HEART: S1-S2 is heard. There is no S3 gallop. There is no S4 gallop there is systolic murmur in the left sternal border and the apex there is no rub. ABDOMEN: Is obese. There is no hepatospleno megaly. Bowel sounds well heard. EXTREMITIES: Femorals are diminished there is no femoral bruits. Leg pulses are diminished. There is trace pedal edema in the right lower extremity. There is no DVT or cellulitis. There is no calf tenderness. There is no cyanosis or clubbing. PEDIATRIC UROLOGIST and PSYCHIATRIC: Not examined due to patient being intubated and sedated. Labs- All tests 24 hr 03/21/19 03/22/19 03/22/19 22:41 05:31 05:31 WBC 10.1 RBC 4.19 L Hgb 12.9 L Hct 38.6 MCV 92 MCH 30.7 MCHC 33.3 RDW 14.9 H Plt Count 138 L APTT Sodium 133.9 L Potassium 6.2 H* Chloride 106 Carbon Dioxide 18 L Anion Gap 10 BUN 74 H Creatinine 3.51 H Est GFR ( Amer) 21 L Est GFR (MDRD) Non-Af 18 L Glucose 266 H POC Glucose 264 H Calcium 7.2 L Troponin I Albumin Time Trough Drawn Vancomycin Trough 03/22/19 03/22/19 03/22/19 05:31 05:31 05:36 WBC RBC Hgb Hct MCV MCH MCHC RDW Plt Count APTT 43.9 H Sodium Potassium Chloride Carbon Dioxide Anion Gap BUN Creatinine Est GFR ( Amer) Est GFR (MDRD) Non-Af Glucose POC Glucose 250 H Calcium Troponin I 3.240 Albumin Time Trough Drawn Vancomycin Trough 03/22/19 03/22/19 03/22/19 08:38 11:32 13:01 WBC RBC Hgb Hct MCV MCH MCHC RDW Plt Count APTT Sodium 136.4 L Potassium 6.1 H* Chloride 107 Carbon Dioxide 18 L Anion Gap 11 BUN 78 H Creatinine 3.69 H Est GFR ( Amer) 20 L Est GFR (MDRD) Non-Af 17 L Glucose 219 H POC Glucose 248 H 200 H Calcium 7.2 L Troponin I Albumin Time Trough Drawn Vancomycin Trough 03/22/19 03/22/19 03/22/19 13:01 17:59 18:11 WBC RBC Hgb Hct MCV MCH MCHC RDW Plt Count APTT Sodium 135.0 L Potassium 5.7 H Chloride 105 Carbon Dioxide 17 L Anion Gap 13 BUN 80 H Creatinine 3.37 H Est GFR ( Amer) 22 L Est GFR (MDRD) Non-Af 18 L Glucose 298 H POC Glucose 314 H Calcium 6.9 L* Troponin I Albumin Time Trough Drawn 1301 Vancomycin Trough 17.1 03/22/19 18:11 WBC RBC Hgb Hct MCV MCH MCHC RDW Plt Count APTT Sodium Potassium Chloride Carbon Dioxide Anion Gap BUN Creatinine Est GFR ( Amer) Est GFR (MDRD) Non-Af Glucose POC Glucose Calcium Troponin I Albumin 3.1 L Time Trough Drawn Vancomycin Trough EKG: SINUS RHYTHM [LVOLF] . LOW VOLTAGE IN FRONTAL LEADS [T1LA] . NONSPECIFIC T ABNORMALITIES, LATERAL LEADS. Chest X-Ray 03/20/19 00:00 IMPRESSION: Worsening congestive failure with interstitial pulmonary edema. Chest X-Ray 03/20/19 00:00 IMPRESSION: Endotracheal tube is in place. Moderate pulmonary edema. Findings correlate from prior study. Chest X-Ray 03/20/19 02:37 IMPRESSION: Mild increased reticular interstitial changes may all be chronic in nature but cannot exclude minimal edema or atypical pneumonia. Correlation with an old exam or short-term follow-up will be useful. Vascular Ultrasound 03/21/19 07:41 IMPRESSION: NO DOPPLER EVIDENCE OF HEMODYNAMICALLY SIGNIFICANT RENAL ARTERY STENOSIS. Chest CT 03/21/19 13:00 IMPRESSION: 1. Findings most compatible CHF with moderate bilateral pleural effusions and bibasilar consolidation, likely atelectasis. Interlobular and septal thickening and patchy ground-glass attenuation, likely edema although superimposed infection is not entirely excluded. 2. Cardiomegaly. Coronary atherosclerosis. 3. Endotracheal tube within the midthoracic trachea. Chest X-Ray 03/22/19 00:00 IMPRESSION: Endotracheal tube, nasogastric tube in good positioning of the 2nd film. Unchanged bilateral pleural effusions with bibasilar airspace disease IMPRESSION/RECOMMENDATION: 1. Acute on probably chronic respiratory failure: Continue ventilators, continue antibiotics. 2. COPD: Continue ventilator support. Continue bronchodilators and antibiotics. 3. Elevated troponin I: Non-ST elevation LA versus secondary to supply demand mismatch. Agree with stopping the patient's IV heparin since her troponin is trending down. Later would recommend that the patient have a IV Lexiscan Cardiolite stress test.. Will recheck troponin I and EKG in the a.m. 4. Acute on chronic kidney disease. The patient's current baseline CKD stage III. At present stage IV. Avoid nephrotoxic drugs. 5. Right lower lobe pneumonia: Continue antibiotics. 6.Hypotension: Most likely secondary infection. Continue Michael-Synephrine. 7. History of hypertension: At present patient blood pressure low requiring pressors. 8. Diabetes mellitus: Continue insulin as per blood sugar checks. 9. Possible interstitial lung disease.: The CT scan is reported as findings which did not support ILD. But will discuss with radiology. 10. Episodic heart failure secondary to hypertensive blood pressure spikes. Note that the patient's LV ejection fraction is normal. 11. Peripheral vascular disease as per history. Medications reviewed. Medication regimen and management plan discussed with the controls designer. Medical decision making is still of high complexity.
[2019-03-23] MEDS: DEXMEDETOMIDINE IN NS 400 MCG/100 ML RTUPB IV PRN ×9 (00:09→22:13)
[2019-03-23] MEDS: ALBUTEROL SULFATE 0.042% NEB (1.25 MG/3 ML) AMPUL NEB SCH ×6 (00:27→20:45)
[2019-03-23] MEDS: HYDROMORPHONE HCL INJ/PF 2 MG/ML AMPULE IV PRN ×4 (02:05→22:15)
[2019-03-23] MEDS: LORAZEPAM INJ 2 MG/1 ML VIAL IV PRN ×4 (02:05→16:00)
[2019-03-23] MEDS: FENTANYL CITRATE INJ/PF 100 MCG/2 ML AMPUL IV PRN ×4 (03:00→20:15)
[2019-03-23 04:08] LABS: HEMATOCRIT 33.6 % (37.9-51.0); HEMOGLOBIN 11.1 g/dL (13.5-17.0); MEAN CORPUSCULAR HEMOGLOBIN 30.2 pg (27.0-33.4); MEAN CORPUSCULAR VOLUME 92 fl (80-97); PLATELET COUNT 170 10^3/uL (150-450); RED BLOOD COUNT 3.66 10^6/uL (4.35-5.55); RED CELL DISTRIBUTION WIDTH 14.7 % (11.5-14.0); WHITE BLOOD COUNT 9.2 10^3/uL (4.0-10.5)
[2019-03-23] MEDS: DEXTROSE 5%-WATER 1000 ML 1,000 ML with SODIUM BICARBONATE 150 MEQ IV PRN ×2 (04:16)
[2019-03-23 04:18] LABS: ARTERIAL BLOOD H2CO3 1.48 mmol/L (1.05-1.35); ARTERIAL BLOOD HCO3 20.4 mmol/L (20-24); ARTERIAL BLOOD O2 SATURATION 89.9 % (94-98); ARTERIAL BLOOD PCO2 49.2 mmHg (35-45); ARTERIAL BLOOD PH 7.24 (7.35-7.45); ARTERIAL BLOOD PO2 67.4 mmHg (80-100); ARTERIAL BLOOD TOTAL CO2 21.9 mmol/L (23-27)
[2019-03-23 04:20] LABS: ARTERIAL BLOOD FIO2 45%
[2019-03-23 04:20] LABS: ANION GAP 13 (5-19); BLOOD UREA NITROGEN 82 mg/dL (7-20); CALCIUM 7.3 mg/dL (8.4-10.2); CARBON DIOXIDE 21 mmol/L (22-30); CHLORIDE 104 mmol/L (98-107); POTASSIUM 4.8 mmol/L (3.6-5.0)
[2019-03-23 04:28] LABS: GLUCOSE 408 mg/dL (75-110)
[2019-03-23 04:33] LABS: APPEARANCE,URINE SLIGHTLY-CLOUDY; BILIRUBIN,URINE NEGATIVE (NEGATIVE); COLOR,URINE YELLOW; GLUCOSE, URINE 150 mg/dL (NEGATIVE); KETONES,URINE NEGATIVE (NEGATIVE); LEUKOCYTE ESTERASE,URINE NEGATIVE (NEGATIVE); NITRITE,URINE NEGATIVE (NEGATIVE); PROTEIN,URINE 100 mg/dL (NEGATIVE); URINE SPECIFIC GRAVITY 1.017; UROBILINOGEN,URINE NEGATIVE mg/dL (<2.0)
[2019-03-23] MEDS: INSULIN LISPRO 100 UNIT/ML 3 ML VIAL SUBCUT SCH ×3 (05:27→17:00)
[2019-03-23] MEDS: HYDROCORTISONE SOD SUCCINATE INJ/PF 100 MG/2 ML SDV IV SCH (05:28)
[2019-03-23] MEDS ORDERED: DEXTROSE 5%-WATER 1000 ML 1,000 ML with SODIUM BICARBONATE 150 MEQ IV PRN ×2 (08:35)
--- NOTE | 2019-03-23 08:36 | RADIOLOGY REPORT (SQ) ---
EXAM DESCRIPTION: U/S RETROPERITON LTD COMPLETED DATE/TIME: 03/22/2019 9:04 pm REASON FOR STUDY: mariann COMPARISON: None. TECHNIQUE: Dynamic and static grayscale images acquired of the kidneys and bladder and recorded on P ACS. Additional selected color Doppler and spectral images recorded. LIMITATIONS: None. FINDINGS: RIGHT KIDNEY: Normal size, 10.4 cm in length. Mild increased cortical echogenicity. N o solid or suspicious masses. No hydronephrosis. No calcifications. LEFT KIDNEY: Normal size, 11.3 cm in length. Mild increased cortical echogenicity. No solid or s uspicious masses. No hydronephrosis. No calcifications. BLADDER: Decompressed, not well seen. Ramirez catheter OTHER FINDINGS: No other significant finding. IMPRESSION: No hydronephrosis Mild increased cortical echogenicity from medical renal disease TECHNICAL DOCUMENTATION: JOB ID: [id number] [employer]- All Rights Reserved Reading location - IP/workstation name: [email or web address]
[2019-03-23] MEDS: GABAPENTIN 300 MG CAPSULE NG SCH ×2 (09:13→22:20)
[2019-03-23] MEDS: FAMOTIDINE INJ/PF 20 MG/2 ML SDV IV SCH (09:13)
[2019-03-23] MEDS: HEPARIN SOD (PORCINE) 5,000 UNIT/ML 1 ML VIAL SUBCUT SCH ×2 (09:14→22:19)
[2019-03-23] MEDS ORDERED: FUROSEMIDE INJ/PF 40 MG/4 ML SDV IV ONE (09:30)
[2019-03-23] MEDS ORDERED: HYDROCORTISONE SOD SUCCINATE INJ/PF 100 MG/2 ML SDV IV SCH (10:00)
[2019-03-23] MEDS: INSULIN GLARGINE,HUM.REC.ANLOG 1,000 UNIT/10 ML VIAL SUBCUT SCH ×2 (11:18→16:59)
[2019-03-23 11:19] LABS: ARTERIAL BLOOD BASE EXCESS -3.7 mmol/L; ARTERIAL BLOOD H2CO3 1.64 mmol/L (1.05-1.35); ARTERIAL BLOOD HCO3 23.7 mmol/L (20-24); ARTERIAL BLOOD O2 SATURATION 89.5 % (94-98); ARTERIAL BLOOD PCO2 54.5 mmHg (35-45); ARTERIAL BLOOD PH 7.26 (7.35-7.45); ARTERIAL BLOOD PO2 65.5 mmHg (80-100); ARTERIAL BLOOD TOTAL CO2 25.4 mmol/L (23-27)
[2019-03-23 11:24] LABS: ARTERIAL BLOOD FIO2 45%
[2019-03-23 12:29] LABS: ANION GAP 13 (5-19); BLOOD UREA NITROGEN 77 mg/dL (7-20); CALCIUM 7.3 mg/dL (8.4-10.2); CARBON DIOXIDE 23 mmol/L (22-30); CHLORIDE 102 mmol/L (98-107); POTASSIUM 3.9 mmol/L (3.6-5.0)
--- NOTE | 2019-03-23 12:32 | Progress Note ---
Provider Note Provider Note: Second ABG shoes pH 7.26, pCO2 54 Good O2 and RSBI of 38. However his respiratory acidosis is worsening and with drop of O2 to 40% he did desaturate. Too many risks present for extubation. Reassess later today.
[2019-03-23 12:45] LABS: GLUCOSE 533 mg/dL (75-110)
--- NOTE | 2019-03-23 13:07 | PDOC PROGRESS REPORT ---
Subjective Progress Note for:: 03/23/19 Reason For Visit: Patient seen today. Is intubated and sedated. Hemodynamically stable. Making decent amounts of urine output. Discussions were done with the treating nurse as well as with professor of forestry labs and medications were reviewed. Current creatinine stable at 3.3. Physical Exam Vital Signs: Temp Pulse Resp BP Pulse Ox 98.3 F 102 H 20 175/72 H 86 L 03/23/19 12:00 03/23/19 12:00 03/23/19 12:00 03/23/19 12:00 03/23/19 12:00 Intake & Output 03/22/19 03/23/19 03/24/19 06:59 06:59 06:59 Intake Total 2812 3256 524 Output Total 600 1325 1200 Balance 2212 1931 -676 Weight 108.6 kg 109.6 kg Exam: Remains intubated and sedated. Respiratory exam: PRESENT: clear to auscultation zachariah. ABSENT: crackles Cardiovascular exam: PRESENT: +S1, +S2 GI/Abdominal exam: PRESENT: normal bowel sounds, soft. ABSENT: organomegaly, tenderness Extremities exam: ABSENT: pedal edema Skin exam: ABSENT: erythema, mottled, rash Results Laboratory Results: 03/23/19 03:49 03/23/19 11:59 03/22/19 03/22/19 03/22/19 13:01 18:11 18:11 WBC RBC Hgb Hct MCV MCH MCHC RDW Plt Count Carbonic Acid HCO3/H2CO3 Ratio ABG pH ABG pCO2 ABG pO2 ABG HCO3 ABG O2 Saturation ABG Base Excess FiO2 Sodium 136.4 L 135.0 L Potassium 6.1 H* 5.7 H Chloride 107 105 Carbon Dioxide 18 L 17 L Anion Gap 11 13 BUN 78 H 80 H Creatinine 3.69 H 3.37 H Est GFR ( Amer) 20 L 22 L Glucose 219 H 298 H Lactic Acid Calcium 7.2 L 6.9 L* Albumin 3.1 L Urine Color Urine Appearance Urine pH Ur Specific [place] Urine Protein Urine Glucose (UA) Urine Ketones Urine Blood Urine Nitrite Ur Leukocyte Esterase Urine WBC (Auto) Urine RBC (Auto) 03/23/19 03/23/19 03/23/19 03:49 03:49 03:49 WBC 9.2 RBC 3.66 L Hgb 11.1 L Hct 33.6 L MCV 92 MCH 30.2 MCHC 33.0 RDW 14.7 H Plt Count 170 Carbonic Acid HCO3/H2CO3 Ratio ABG pH ABG pCO2 ABG pO2 ABG HCO3 ABG O2 Saturation ABG Base Excess FiO2 Sodium 137.7 Potassium 4.8 Chloride 104 Carbon Dioxide 21 L Anion Gap 13 BUN 82 H Creatinine 3.35 H Est GFR ( Amer) 22 L Glucose 408 H* Lactic Acid 1.5 Calcium 7.3 L Albumin Urine Color Urine Appearance Urine pH Ur Specific [place] Urine Protein Urine Glucose (UA) Urine Ketones Urine Blood Urine Nitrite Ur Leukocyte Esterase Urine WBC (Auto) Urine RBC (Auto) 03/23/19 03/23/19 03/23/19 03:49 04:05 04:24 WBC RBC Hgb Hct MCV MCH MCHC RDW Plt Count Carbonic Acid 1.48 H HCO3/H2CO3 Ratio 13:1 ABG pH 7.24 L ABG pCO2 49.2 H ABG pO2 67.4 L ABG HCO3 20.4 ABG O2 Saturation 89.9 L ABG Base Excess -7.0 FiO2 45% Sodium Potassium Chloride Carbon Dioxide Anion Gap BUN Creatinine Est GFR ( Amer) Glucose Lactic Acid Calcium Albumin 3.2 L Urine Color YELLOW Urine Appearance SLIGHTLY-CLOUDY Urine pH 5.0 Ur Specific [place] 1.017 Urine Protein 100 H Urine Glucose (UA) 150 H Urine Ketones NEGATIVE Urine Blood MODERATE H Urine Nitrite NEGATIVE Ur Leukocyte Esterase NEGATIVE Urine WBC (Auto) 2 Urine RBC (Auto) 4 03/23/19 03/23/19 11:13 11:59 WBC RBC Hgb Hct MCV MCH MCHC RDW Plt Count Carbonic Acid 1.64 H HCO3/H2CO3 Ratio 14:1 ABG pH 7.26 L ABG pCO2 54.5 H ABG pO2 65.5 L ABG HCO3 23.7 ABG O2 Saturation 89.5 L ABG Base Excess -3.7 FiO2 45% Sodium 137.9 Potassium 3.9 Chloride 102 Carbon Dioxide 23 Anion Gap 13 BUN 77 H Creatinine 2.96 H Est GFR ( Amer) 26 L Glucose 533 H* Lactic Acid Calcium 7.3 L Albumin Urine Color Urine Appearance Urine pH Ur Specific [place] Urine Protein Urine Glucose (UA) Urine Ketones Urine Blood Urine Nitrite Ur Leukocyte Esterase Urine WBC (Auto) Urine RBC (Auto) 03/21/19 11:43 Tracheal Aspirate Sputum Culture - Final Pseudomonas Aeruginosa Normal Brittnee Absent 03/20/19 03/20/19 03/20/19 02:40 02:40 07:06 Creatine Kinase 109 CK-MB (CK-2) 2.86 Cancelled Troponin I 0.040 Cancelled NT-Pro-B Natriuret Pep 4540 H 03/20/19 03/20/19 03/20/19 07:54 12:30 17:52 Creatine Kinase CK-MB (CK-2) 10.90 H Troponin I 0.648 1.770 3.420 NT-Pro-B Natriuret Pep 03/21/19 03/21/19 03/21/19 06:10 06:10 11:57 Creatine Kinase 353 H 258 H CK-MB (CK-2) 17.60 H Troponin I 5.350 NT-Pro-B Natriuret Pep 03/21/19 03/21/19 03/21/19 11:57 16:08 16:08 Creatine Kinase 232 H CK-MB (CK-2) 13.90 H 11.60 H Troponin I 4.320 4.530 NT-Pro-B Natriuret Pep 03/22/19 05:31 Creatine Kinase CK-MB (CK-2) Troponin I 3.240 NT-Pro-B Natriuret Pep Impressions: Vascular Ultrasound 03/21/19 07:41 IMPRESSION: NO DOPPLER EVIDENCE OF HEMODYNAMICALLY SIGNIFICANT RENAL ARTERY STENOSIS. Chest CT 03/21/19 13:00 IMPRESSION: 1. Findings most compatible CHF with moderate bilateral pleural effusions and bibasilar consolidation, likely atelectasis. Interlobular and septal thickening and patchy ground-glass attenuation, likely edema although superimposed infection is not entirely excluded. 2. Cardiomegaly. Coronary atherosclerosis. 3. Endotracheal tube within the midthoracic trachea. Chest X-Ray 03/22/19 00:00 IMPRESSION: Endotracheal tube, nasogastric tube in good positioning of the 2nd film. Unchanged bilateral pleural effusions with bibasilar airspace disease Renal Ultrasound 03/22/19 00:00 IMPRESSION: No hydronephrosis Mild increased cortical echogenicity from medical renal disease Assessment & Plan - Diagnosis (1) Acute hypoxemic respiratory failure Is this a current diagnosis for this admission?: Yes Plan: Remains intubated and sedated. Management as per professor of forestry. Planning to see if he could be extubated soon. (2) Acute kidney injury Is this a current diagnosis for this admission?: Yes Plan: Creatinine stable at 3.3. Nonoliguric. Good urine output. Reviewed renal ultrasound without any obstructive features. At this point I would convert his bicarb drip to normal saline at 50 cc an hour. (3) COPD with exacerbation Is this a current diagnosis for this admission?: Yes Plan: As per professor of forestry. (4) Sepsis Plan: His white count has normalized on current treatments. Obviously improving. (5) Hyperkalemia Plan: Resolved. (6) Metabolic acidosis Plan: Improved. Recommend conversion/discontinuation of his bicarb drip at the moment. (7) Diabetes 1.5, managed as type 2 Plan: Needs better control. As per professor of forestry.
[2019-03-23] MEDS: NORMAL SALINE 1000 ML 1,000 ML IV PRN (13:09)
[2019-03-23] MEDS: CEFEPIME 1 GM/D5W RTU 1 GM/50 ML RTUPB IV SCH ×2 (13:23→22:16)
[2019-03-23] MEDS: LISINOPRIL 10 MG TABLET PO SCH (14:55)
--- NOTE | 2019-03-23 16:05 | RADIOLOGY REPORT (SQ) ---
EXAM DESCRIPTION: KUB/ABDOMEN (SINGLE VIEW) COMPLETED DATE/TIME: 03/23/2019 3:45 pm REASON FOR STUDY: ngt replacement COMPARISON: None. NUMBER OF VIEWS: One view. TECHNIQUE: Supine radiographic image of the abdomen acquired. LIMITATIONS: None. FINDINGS: BOWEL GAS PATTERN: Normal bowel gas pattern. No dilated loops. CALCIFICATIONS: No suspicious calcifications. SOFT TISSUES: No gross mass or suggestion of organomegaly. HARDWARE: Tip of the nasogastric tube in the stomach. BONES: No acute fracture. No worrisome bone lesions. OTHER: No other significant finding. IMPRESSION: THE TIP OF THE NASOGASTRIC TUBE IN THE STOMACH. NO RADIOGRAPHIC EVIDENCE FOR ACUTE ABDO ZEN DISEASE. TECHNICAL DOCUMENTATION: JOB ID: [id number] [employer]- All Rights Reserved Reading location - IP/workstation name: [email or web address]
[2019-03-23] MEDS ORDERED: POLYETHYLENE GLYCOL 3350 POWDER 17 GM/1 PACKET PO ONE (17:00)
[2019-03-23] MEDS ORDERED: BISACODYL 10 MG SUPP.RECT PR ONE (17:00)
--- NOTE | 2019-03-23 22:57 | Progress Note ---
Provider Note Provider Note: CARDIOLOGY PROGRESS NOTE by Dr. Simran Sanchez on 03/23/2019. SUBJECTIVE: The patient is intubated and sedated. There is no atrial or ventricular arrhythmia seen on the monitor. The patient is making reasonable amount of urine. His creatinine is trended down to 2.96. Due to significant respiratory acidosis and need for increased FiO2 the patient is extubated and has been postponed. Physical EXAMINATION: The patient is mildly obese. He is not fighting the ventilator. Selected Entries 03/23/19 16:00 Temperature 98.7 F Temperature Oral Source Pulse Rate 92 Respiratory 17 Rate Blood Pressure 170/84 H [Left Upper Arm ] Blood Pressure 112 Mean [Left Upper Arm] Blood Pressure Supine Position [Left Upper Arm] O2 Sat by Pulse 95 Oximetry Oxygen Delivery Mechanical Method ( Ventilator includes room air) Percent of 50 Oxygen HEAD: Is atraumatic. Normocephalic. EYES: Pupils are equal round reactive to light. ENT is negative. NECK: Supple. There is no JVD. There is mild accessory muscle respiration use. Trachea central. LUNGS: There is diminished air entry and prolonged expiration. On percussion there is hyperresonance. There is a few dry crackles of the right base. HEART: S1-S2 is heard. There is no S3 gallop. There is no S4 gallop there is systolic murmur in the left sternal border and the apex there is no rub. ABDOMEN: Is obese. There is no hepatospleno megaly. Bowel sounds well heard. EXTREMITIES: Femorals are diminished there is no femoral bruits. Leg pulses are diminished. There is trace pedal edema in the right lower extremity. There is no DVT or cellulitis. There is no calf tenderness. There is no cyanosis or clubbing. ONCOLOGY TECHNICIAN and PSYCHIATRIC: Not examined due to patient being intubated and sedated. Labs- All tests 24 hr 03/23/19 03/23/19 03/23/19 03:49 03:49 03:49 WBC 9.2 RBC 3.66 L Hgb 11.1 L Hct 33.6 L MCV 92 MCH 30.2 MCHC 33.0 RDW 14.7 H Plt Count 170 Carbonic Acid HCO3/H2CO3 Ratio ABG pH ABG pCO2 ABG pO2 ABG HCO3 ABG Total CO2 ABG O2 Saturation ABG Base Excess FiO2 Sodium 137.7 Potassium 4.8 Chloride 104 Carbon Dioxide 21 L Anion Gap 13 BUN 82 H Creatinine 3.35 H Est GFR ( Amer) 22 L Est GFR (MDRD) Non-Af 18 L Glucose 408 H* POC Glucose Lactic Acid 1.5 Calcium 7.3 L Albumin Urine Color Urine Appearance Urine pH Ur Specific [place] Urine Protein Urine Glucose (UA) Urine Ketones Urine Blood Urine Nitrite Urine Bilirubin Urine Urobilinogen Ur Leukocyte Esterase Urine WBC (Auto) Urine RBC (Auto) U Hyaline Cast (Auto) Squamous Epi Cells Auto Urine Mucus (Auto) Urine Ascorbic Acid 03/23/19 03/23/19 03/23/19 03:49 04:05 04:24 WBC RBC Hgb Hct MCV MCH MCHC RDW Plt Count Carbonic Acid 1.48 H HCO3/H2CO3 Ratio 13:1 ABG pH 7.24 L ABG pCO2 49.2 H ABG pO2 67.4 L ABG HCO3 20.4 ABG Total CO2 21.9 L ABG O2 Saturation 89.9 L ABG Base Excess -7.0 FiO2 45% Sodium Potassium Chloride Carbon Dioxide Anion Gap BUN Creatinine Est GFR ( Amer) Est GFR (MDRD) Non-Af Glucose POC Glucose Lactic Acid Calcium Albumin 3.2 L Urine Color YELLOW Urine Appearance SLIGHTLY-CLOUDY Urine pH 5.0 Ur Specific [place] 1.017 Urine Protein 100 H Urine Glucose (UA) 150 H Urine Ketones NEGATIVE Urine Blood MODERATE H Urine Nitrite NEGATIVE Urine Bilirubin NEGATIVE Urine Urobilinogen NEGATIVE Ur Leukocyte Esterase NEGATIVE Urine WBC (Auto) 2 Urine RBC (Auto) 4 U Hyaline Cast (Auto) 4 Squamous Epi Cells Auto <1 Urine Mucus (Auto) RARE Urine Ascorbic Acid NEGATIVE 03/23/19 03/23/19 03/23/19 05:22 10:58 11:13 WBC RBC Hgb Hct MCV MCH MCHC RDW Plt Count Carbonic Acid 1.64 H HCO3/H2CO3 Ratio 14:1 ABG pH 7.26 L ABG pCO2 54.5 H ABG pO2 65.5 L ABG HCO3 23.7 ABG Total CO2 25.4 ABG O2 Saturation 89.5 L ABG Base Excess -3.7 FiO2 45% Sodium Potassium Chloride Carbon Dioxide Anion Gap BUN Creatinine Est GFR ( Amer) Est GFR (MDRD) Non-Af Glucose POC Glucose 469 H* 480 H* Lactic Acid Calcium Albumin Urine Color Urine Appearance Urine pH Ur Specific [place] Urine Protein Urine Glucose (UA) Urine Ketones Urine Blood Urine Nitrite Urine Bilirubin Urine Urobilinogen Ur Leukocyte Esterase Urine WBC (Auto) Urine RBC (Auto) U Hyaline Cast (Auto) Squamous Epi Cells Auto Urine Mucus (Auto) Urine Ascorbic Acid 03/23/19 03/23/19 11:59 16:07 WBC RBC Hgb Hct MCV MCH MCHC RDW Plt Count Carbonic Acid HCO3/H2CO3 Ratio ABG pH ABG pCO2 ABG pO2 ABG HCO3 ABG Total CO2 ABG O2 Saturation ABG Base Excess FiO2 Sodium 137.9 Potassium 3.9 Chloride 102 Carbon Dioxide 23 Anion Gap 13 BUN 77 H Creatinine 2.96 H Est GFR ( Amer) 26 L Est GFR (MDRD) Non-Af 21 L Glucose 533 H* POC Glucose 497 H* Lactic Acid Calcium 7.3 L Albumin Urine Color Urine Appearance Urine pH Ur Specific [place] Urine Protein Urine Glucose (UA) Urine Ketones Urine Blood Urine Nitrite Urine Bilirubin Urine Urobilinogen Ur Leukocyte Esterase Urine WBC (Auto) Urine RBC (Auto) U Hyaline Cast (Auto) Squamous Epi Cells Auto Urine Mucus (Auto) Urine Ascorbic Acid Chest X-Ray 03/20/19 00:00 IMPRESSION: Worsening congestive failure with interstitial pulmonary edema. Chest X-Ray 03/20/19 00:00 IMPRESSION: Endotracheal tube is in place. Moderate pulmonary edema. Findings correlate from prior study. Chest X-Ray 03/20/19 02:37 IMPRESSION: Mild increased reticular interstitial changes may all be chronic in nature but cannot exclude minimal edema or atypical pneumonia. Correlation with an old exam or short-term follow-up will be useful. Vascular Ultrasound 03/21/19 07:41 IMPRESSION: NO DOPPLER EVIDENCE OF HEMODYNAMICALLY SIGNIFICANT RENAL ARTERY STENOSIS. Chest CT 03/21/19 13:00 IMPRESSION: 1. Findings most compatible CHF with moderate bilateral pleural effusions and bibasilar consolidation, likely atelectasis. Interlobular and septal thickening and patchy ground-glass attenuation, likely edema although superimposed infection is not entirely excluded. 2. Cardiomegaly. Coronary atherosclerosis. 3. Endotracheal tube within the midthoracic trachea. Chest X-Ray 03/22/19 00:00 IMPRESSION: Endotracheal tube, nasogastric tube in good positioning of the 2nd film. Unchanged bilateral pleural effusions with bibasilar airspace disease Renal Ultrasound 03/22/19 00:00 IMPRESSION: No hydronephrosis Mild increased cortical echogenicity from medical renal disease KUB X-Ray 03/23/19 15:17 IMPRESSION: THE TIP OF THE NASOGASTRIC TUBE IN THE STOMACH. NO RADIOGRAPHIC EVIDENCE FOR ACUTE ABDOMINAL DISEASE. IMPRESSION/RECOMMENDATION: 1. Acute on probably chronic respiratory failure: Continue ventilators, continue antibiotics. 2. COPD: Continue ventilator support. Continue bronchodilators and antibiotics. 3. Elevated troponin I: Non-ST elevation PA versus secondary to supply demand mismatch. Agree with stopping the patient's IV heparin since her troponin is trending down. Later would recommend that the patient have a IV Lexiscan Cardiolite stress test.. Will recheck troponin I and EKG in the a.m. 4. Acute on chronic kidney disease. The patient's current baseline CKD stage III. At present stage IV. Avoid nephrotoxic drugs. 5. Right lower lobe pneumonia: Continue antibiotics. 6.Hypotension: Most likely secondary infection. Continue Michael-Synephrine. 7. History of hypertension: At present patient blood pressure low requiring pressors. 8. Diabetes mellitus: Continue insulin as per blood sugar checks. 9. Possible interstitial lung disease.: The CT scan is reported as findings which did not support ILD. But will discuss with radiology. 10. Episodic heart failure secondary to hypertensive blood pressure spikes. Note that the patient's LV ejection fraction is normal. 11. Peripheral vascular disease as per history. Medications reviewed. Medication regimen and management plan discussed with the blow mold technician. Medical decision making is still of high complexity. In spite of his troponin being elevated his cardiac status remains stable. Later once the renal and lung issues as resolved and back to baseline then would recommend that the patient have IV Lexiscan Cardiolite stress test. Will sign off the case. As discussed with the blow mold technician. Please call me if any cardiac problems should arise. Will later check on the patient to see when the patient is ready for a stress test. Will sign off
[2019-03-24] MEDS: INSULIN LISPRO 100 UNIT/ML 3 ML VIAL SUBCUT SCH ×4 (00:14→17:10)
[2019-03-24] MEDS: ALBUTEROL SULFATE 0.042% NEB (1.25 MG/3 ML) AMPUL NEB SCH ×6 (00:15→20:50)
[2019-03-24] MEDS: DEXMEDETOMIDINE IN NS 400 MCG/100 ML RTUPB IV PRN ×10 (00:17→23:30)
[2019-03-24] MEDS: FENTANYL CITRATE INJ/PF 100 MCG/2 ML AMPUL IV PRN ×3 (01:25→21:35)
[2019-03-24] MEDS: HYDROMORPHONE HCL INJ/PF 2 MG/ML AMPULE IV PRN ×5 (02:56→22:39)
[2019-03-24 04:05] LABS: ABSOLUTE LYMPHOCYTES (AUTO) 0.9 10^3/uL (0.5-4.7); ABSOLUTE MONOCYTES (AUTO) 0.9 10^3/uL (0.1-1.4); ABSOLUTE NEUT (AUTO) 5.2 10^3/uL (1.7-8.2); BASOPHILS % (AUTO) 0.2 % (0-2); EOSINOPHILS % (AUTO) 0.1 % (0-6); HEMATOCRIT 31.6 % (37.9-51.0); HEMOGLOBIN 10.5 g/dL (13.5-17.0); LYMPHOCYTES % (AUTO) 12.2 % (13-45); MEAN CORPUSCULAR HEMOGLOBIN 30.6 pg (27.0-33.4); MEAN CORPUSCULAR HGB CONC 33.3 g/dL (32.0-36.0); MEAN CORPUSCULAR VOLUME 92 fl (80-97); PLATELET COUNT 168 10^3/uL (150-450); RED BLOOD COUNT 3.44 10^6/uL (4.35-5.55); RED CELL DISTRIBUTION WIDTH 14.5 % (11.5-14.0); SEGMENTED NEUTROPHILS % (AUTO) 74.5 % (42-78); TOTAL CELLS COUNTED % (AUTO) 100 %
[2019-03-24 04:25] LABS: ARTERIAL BLOOD BASE EXCESS -0.5 mmol/L; ARTERIAL BLOOD FIO2 45%; ARTERIAL BLOOD H2CO3 1.92 mmol/L (1.05-1.35); ARTERIAL BLOOD HCO3 28.1 mmol/L (20-24); ARTERIAL BLOOD O2 SATURATION 90.2 % (94-98); ARTERIAL BLOOD PCO2 63.8 mmHg (35-45); ARTERIAL BLOOD PH 7.26 (7.35-7.45); ARTERIAL BLOOD PO2 67.6 mmHg (80-100); ARTERIAL BLOOD TOTAL CO2 30.1 mmol/L (23-27)
[2019-03-24 04:29] LABS: ANION GAP 8 (5-19); BLOOD UREA NITROGEN 72 mg/dL (7-20); CALCIUM 7.4 mg/dL (8.4-10.2); CARBON DIOXIDE 27 mmol/L (22-30); CHLORIDE 107 mmol/L (98-107); GLUCOSE 315 mg/dL (75-110); POTASSIUM 3.7 mmol/L (3.6-5.0)
[2019-03-24] MEDS: NORMAL SALINE 1000 ML 1,000 ML IV PRN ×2 (04:42→19:20)
[2019-03-24] MEDS: LORAZEPAM INJ 2 MG/1 ML VIAL IV PRN ×2 (07:30→14:51)
--- NOTE | 2019-03-24 08:57 | PDOC PROGRESS REPORT ---
Subjective Progress Note for:: 03/24/19 Subjective:: Pt is still sedatd with Precedex but occasionally gets agitated especially with suctioning. Reason For Visit: ACUTE HYPOXIC RESPIRATORY FAILURE,ACUTE KIDNEY Physical Exam Vital Signs: Temp Pulse Resp BP Pulse Ox 100.4 F 92 16 104/72 92 03/24/19 03:48 03/24/19 08:21 03/24/19 08:21 03/24/19 05:39 03/24/19 08:21 Intake & Output 03/23/19 03/24/19 03/25/19 06:59 06:59 06:59 Intake Total 3256 3136 Output Total 1325 3185 Balance 1931 -49 Weight 109.6 kg 111.5 kg General appearance: PRESENT: no acute distress Eye exam: PRESENT: PERRLA Ear exam: PRESENT: normal external ear exam Mouth exam: PRESENT: dry mucosa Teeth exam: PRESENT: edentulous Neck exam: PRESENT: full ROM Respiratory exam: PRESENT: crackles, rhonchi, unlabored Cardiovascular exam: PRESENT: tachycardia Pulses: PRESENT: normal radial pulses GI/Abdominal exam: PRESENT: soft Additonal comments: Had been tense yesterday but much improved. Rectal exam: PRESENT: deferred Gentrourinary exam: PRESENT: indwelling catheter Extremities exam: PRESENT: full ROM Additional comments: Edema present but not severe Musculoskeletal exam: PRESENT: full ROM Neurological exam: PRESENT: altered Additional comments: Sedated Results Laboratory Results: 03/24/19 03:49 03/24/19 04:00 03/23/19 03/23/19 03/23/19 03:49 11:13 11:59 WBC RBC Hgb Hct MCV MCH MCHC RDW Plt Count Seg Neutrophils % Carbonic Acid 1.64 H HCO3/H2CO3 Ratio 14:1 ABG pH 7.26 L ABG pCO2 54.5 H ABG pO2 65.5 L ABG HCO3 23.7 ABG O2 Saturation 89.5 L ABG Base Excess -3.7 FiO2 45% Sodium 137.9 Potassium 3.9 Chloride 102 Carbon Dioxide 23 Anion Gap 13 BUN 77 H Creatinine 2.96 H Est GFR ( Amer) 26 L Est GFR (Non-Af Amer) Glucose 533 H* Calcium 7.3 L Albumin 3.2 L 09/28/19 09/28/19 09/28/19 03:49 03:49 04:00 WBC 7.0 RBC 3.44 L Hgb 10.5 L Hct 31.6 L MCV 92 MCH 30.6 MCHC 33.3 RDW 14.5 H Plt Count 168 Seg Neutrophils % 74.5 Carbonic Acid HCO3/H2CO3 Ratio ABG pH ABG pCO2 ABG pO2 ABG HCO3 ABG O2 Saturation ABG Base Excess FiO2 Sodium 142.4 Cancelled Potassium 3.7 Cancelled Chloride 107 Cancelled Carbon Dioxide 27 Cancelled Anion Gap 8 Cancelled BUN 72 H Cancelled Creatinine 2.51 H Cancelled Est GFR ( Amer) 31 L Cancelled Est GFR (Non-Af Amer) Cancelled Glucose 315 H Cancelled Calcium 7.4 L Cancelled Albumin 03/24/19 04:00 WBC RBC Hgb Hct MCV MCH MCHC RDW Plt Count Seg Neutrophils % Carbonic Acid 1.92 H HCO3/H2CO3 Ratio 14:1 ABG pH 7.26 L ABG pCO2 63.8 H ABG pO2 67.6 L ABG HCO3 28.1 H ABG O2 Saturation 90.2 L ABG Base Excess -0.5 FiO2 45% Sodium Potassium Chloride Carbon Dioxide Anion Gap BUN Creatinine Est GFR ( Amer) Est GFR (Non-Af Amer) Glucose Calcium Albumin 03/21/19 11:43 Tracheal Aspirate Gram Stain - Final 03/21/19 11:43 Tracheal Aspirate Sputum Culture - Final Pseudomonas Aeruginosa Normal Brittnee Absent 03/20/19 03/20/19 03/20/19 02:40 02:40 07:06 Creatine Kinase 109 CK-MB (CK-2) 2.86 Cancelled Troponin I 0.040 Cancelled NT-Pro-B Natriuret Pep 4540 H 03/20/19 03/20/19 03/20/19 07:54 12:30 17:52 Creatine Kinase CK-MB (CK-2) 10.90 H Troponin I 0.648 1.770 3.420 NT-Pro-B Natriuret Pep 03/21/19 03/21/19 03/21/19 06:10 06:10 11:57 Creatine Kinase 353 H 258 H CK-MB (CK-2) 17.60 H Troponin I 5.350 NT-Pro-B Natriuret Pep 03/21/19 03/21/19 03/21/19 11:57 16:08 16:08 Creatine Kinase 232 H CK-MB (CK-2) 13.90 H 11.60 H Troponin I 4.320 4.530 NT-Pro-B Natriuret Pep 03/22/19 03/24/19 05:31 03:49 Creatine Kinase CK-MB (CK-2) Troponin I 3.240 3.270 NT-Pro-B Natriuret Pep Impressions: Vascular Ultrasound 03/21/19 07:41 IMPRESSION: NO DOPPLER EVIDENCE OF HEMODYNAMICALLY SIGNIFICANT RENAL ARTERY STENOSIS. Chest CT 03/21/19 13:00 IMPRESSION: 1. Findings most compatible CHF with moderate bilateral pleural effusions and bibasilar consolidation, likely atelectasis. Interlobular and septal thickening and patchy ground-glass attenuation, likely edema although superimposed infection is not entirely excluded. 2. Cardiomegaly. Coronary atherosclerosis. 3. Endotracheal tube within the midthoracic trachea. Chest X-Ray 03/22/19 00:00 IMPRESSION: Endotracheal tube, nasogastric tube in good positioning of the 2nd film. Unchanged bilateral pleural effusions with bibasilar airspace disease Renal Ultrasound 03/22/19 00:00 IMPRESSION: No hydronephrosis Mild increased cortical echogenicity from medical renal disease KUB X-Ray 03/23/19 15:17 IMPRESSION: THE TIP OF THE NASOGASTRIC TUBE IN THE STOMACH. NO RADIOGRAPHIC EVIDENCE FOR ACUTE ABDOMINAL DISEASE. Assessment & Plan - Diagnosis (1) Acute hypoxemic respiratory failure Is this a current diagnosis for this admission?: Yes Plan: Still an ongoing issue with his COPD and volume overload. COPD may make CXR look better than it is. As long as BP and renal status hold out, continue lasix. (2) Acute kidney injury Is this a current diagnosis for this admission?: Yes Plan: BUN/Cr better. However still not at baseline but stable enough to cotinue Lasix and removal of fluid encurred with resucitation efforts. With removal of fluid I hope he is quickly extubatable. (3) COPD with exacerbation Is this a current diagnosis for this admission?: Yes Plan: His main problem. Again the excess lung water is likely driving an increased pCO2. He is beginning to show some respiratory compensation. (4) Pulmonary artery hypertension Is this a current diagnosis for this admission?: Yes Plan: Nt helping weaning. Should improve with diuresis. (5) Malnutrition of mild degree Is this a current diagnosis for this admission?: Yes Plan: Now on TF. Continue until extubated.
[2019-03-24] MEDS ORDERED: FUROSEMIDE INJ/PF 40 MG/4 ML SDV IV ONE (09:00)
--- NOTE | 2019-03-24 09:15 | EKG REPORT ---
SEVERITY:- ABNORMAL ECG - SINUS RHYTHM CONSIDER ANTEROSEPTAL INFARCT NONSPECIFIC T ABNORMALITIES, LATERAL LEADS : Confirmed by: Emir Benavides 24-Mar-2019 09:14:03
[2019-03-24] MEDS: CEFEPIME 1 GM/D5W RTU 1 GM/50 ML RTUPB IV SCH ×2 (10:38→21:36)
[2019-03-24] MEDS: INSULIN GLARGINE,HUM.REC.ANLOG 1,000 UNIT/10 ML VIAL SUBCUT SCH ×2 (10:44→17:14)
[2019-03-24] MEDS: HEPARIN SOD (PORCINE) 5,000 UNIT/ML 1 ML VIAL SUBCUT SCH ×2 (10:53→21:35)
[2019-03-24] MEDS: LISINOPRIL 10 MG TABLET PO SCH (10:54)
[2019-03-24] MEDS: GABAPENTIN 300 MG CAPSULE NG SCH ×2 (10:54→21:35)
[2019-03-24] MEDS: FAMOTIDINE INJ/PF 20 MG/2 ML SDV IV SCH (10:54)
[2019-03-24] MEDS ORDERED: LACTULOSE SYRUP 20 GM/30 ML UDCUP PO ONE (17:22)
[2019-03-24] MEDS ORDERED: BISACODYL 10 MG SUPP.RECT PR ONE (17:22)
--- NOTE | 2019-03-24 18:31 | RADIOLOGY REPORT (SQ) ---
EXAM DESCRIPTION: CT HEAD WITHOUT COMPLETED DATE/TIME: 03/24/2019 6:20 pm REASON FOR STUDY: Sudden loss of neuro function in ICU COMPARISON: None. TECHNIQUE: Axial images acquired through the brain without intravenous contrast. Images reviewed wit h bone, brain and subdural windows. Images stored on PACS. All CT scanners at this facility use dose modulation, iterative reconstruction, and/or weight based d osing when appropriate to reduce radiation dose to as low as reasonably achievable (ALARA). [facility]: Dose Right [facility]: CareDose [facility]: Dose Right [facility]: Teradose 4D [facility]: Smart RT[employer]-Media RADIATION DOSE: CT Rad equipment meets quality standard of care and radiation dose reduction techniq ues were employed. CTDIvol: 53.2 mGy. DLP: 1070 mGy-cm.. LIMITATIONS: None. FINDINGS: VENTRICLES: Normal size and contour. CEREBRUM: No masses. No hemorrhage. No midline shift. Age appropriate white matter. No evidence for a cute infarction. CEREBELLUM: No masses. No hemorrhage. No alteration of density. No evidence for acute infarction. EXTRA-AXIAL SPACES: No fluid collections. ORBITS AND GLOBE: No intra- or extraconal masses. Normal contour of globe without masses. CALVARIUM: No fracture. PARANASAL SINUSES: No fluid levels. Minimal left maxillary mucosal thickening. SOFT TISSUES: No mass or hematoma. OTHER: No other significant finding. IMPRESSION: NO ACUTE INTRACRANIAL FINDINGS. EVIDENCE OF ACUTE STROKE: NO. TECHNICAL DOCUMENTATION: JOB ID: [id number] [place]-72 Quality ID # [id number]: Final reports with documentation of one or more dose reduction techniques (e.g., Au tomated exposure control, adjustment of the mA and/or kV according to patient size, use of iterative reconstruction technique) 2010 [employer]- All Rights Reserved Reading location - IP/workstation name: [email or web address]
--- NOTE | 2019-03-24 19:02 | Progress Note ---
Provider Note Provider Note: Pt had decompensation of neuro status. He became unresponsive, lot gag reflex corneals and no response to vigorous jaw thrust. STAT head ct esentialy normal. Likely is combination of sedation acting in concert. U/O 1600cc thus far and still coming at > 100cc/hr. No further lasix tonight. Again try and wean vent Tuesday.
[2019-03-25] MEDS: ALBUTEROL SULFATE 0.042% NEB (1.25 MG/3 ML) AMPUL NEB SCH ×6 (00:23→19:53)
[2019-03-25] MEDS: INSULIN LISPRO 100 UNIT/ML 3 ML VIAL SUBCUT SCH ×4 (00:31→18:26)
[2019-03-25] MEDS: DEXMEDETOMIDINE IN NS 400 MCG/100 ML RTUPB IV PRN ×6 (01:50→15:35)
[2019-03-25] MEDS: LORAZEPAM INJ 2 MG/1 ML VIAL IV PRN ×6 (02:03→18:32)
[2019-03-25] MEDS: HYDROMORPHONE HCL INJ/PF 2 MG/ML AMPULE IV PRN (04:09)
[2019-03-25 04:16] LABS: ABSOLUTE MONOCYTES (AUTO) 1.1 10^3/uL (0.1-1.4); BASOPHILS % (AUTO) 0.2 % (0-2); EOSINOPHILS % (AUTO) 0.7 % (0-6); HEMATOCRIT 31.6 % (37.9-51.0); HEMOGLOBIN 10.7 g/dL (13.5-17.0); MEAN CORPUSCULAR HEMOGLOBIN 30.8 pg (27.0-33.4); MEAN CORPUSCULAR HGB CONC 33.8 g/dL (32.0-36.0); MEAN CORPUSCULAR VOLUME 91 fl (80-97); MONOCYTES % (AUTO) 15.7 % (3-13); PLATELET COUNT 157 10^3/uL (150-450); RED BLOOD COUNT 3.47 10^6/uL (4.35-5.55); RED CELL DISTRIBUTION WIDTH 14.3 % (11.5-14.0); SEGMENTED NEUTROPHILS % (AUTO) 69.4 % (42-78); TOTAL CELLS COUNTED % (AUTO) 100 %; WHITE BLOOD COUNT 7.3 10^3/uL (4.0-10.5)
[2019-03-25 05:14] LABS: ARTERIAL BLOOD BASE EXCESS 3.5 mmol/L; ARTERIAL BLOOD H2CO3 1.69 mmol/L (1.05-1.35); ARTERIAL BLOOD HCO3 30.2 mmol/L (20-24); ARTERIAL BLOOD O2 SATURATION 90.8 % (94-98); ARTERIAL BLOOD PH 7.35 (7.35-7.45); ARTERIAL BLOOD PO2 63.4 mmHg (80-100); ARTERIAL BLOOD TOTAL CO2 31.9 mmol/L (23-27)
[2019-03-25 05:15] LABS: ARTERIAL BLOOD FIO2 50%
[2019-03-25] MEDS: NORMAL SALINE 1000 ML 1,000 ML IV PRN ×3 (06:47→16:24)
[2019-03-25 08:07] LABS: ANION GAP 7 (5-19); BLOOD UREA NITROGEN 58 mg/dL (7-20); CALCIUM 7.6 mg/dL (8.4-10.2); CARBON DIOXIDE 29 mmol/L (22-30); CHLORIDE 110 mmol/L (98-107); GLUCOSE 157 mg/dL (75-110); POTASSIUM 3.4 mmol/L (3.6-5.0)
[2019-03-25] MEDS ORDERED: DILTIAZEM HCL INJ 25 MG/5 ML VIAL ONE (08:34)
[2019-03-25] MEDS ORDERED: METOPROLOL TARTRATE 50 MG TABLET ONE (08:45)
[2019-03-25] MEDS: FENTANYL CITRATE INJ/PF 100 MCG/2 ML AMPUL IV PRN (08:58)
[2019-03-25] MEDS ORDERED: DILTIAZEM HCL INJ 25 MG/5 ML VIAL IV ONE (09:00)
[2019-03-25] MEDS: FAMOTIDINE INJ/PF 20 MG/2 ML SDV IV SCH (09:33)
[2019-03-25] MEDS: INSULIN GLARGINE,HUM.REC.ANLOG 1,000 UNIT/10 ML VIAL SUBCUT SCH ×2 (09:37→18:28)
--- NOTE | 2019-03-25 09:38 | PDOC PROGRESS REPORT ---
Subjective Progress Note for:: 03/25/19 Subjective:: Still intubated. Awake enough to C/O abd pain. No BM desipte SS enema, ducolax x 2 miralax x 2. Reason For Visit: ACUTE HYPOXIC RESPIRATORY FAILURE,ACUTE KIDNEY Physical Exam Vital Signs: Temp Pulse Resp BP Pulse Ox 100.9 F H 94 20 142/91 H 91 L 03/25/19 08:00 03/25/19 08:00 03/25/19 08:00 03/25/19 08:00 03/25/19 08:00 Intake & Output 03/24/19 03/25/19 03/26/19 06:59 06:59 06:59 Intake Total 3136 3115 97 Output Total 3185 2775 200 Balance -49 340 -103 Weight 111.5 kg 109.6 kg General appearance: PRESENT: mild distress Eye exam: PRESENT: PERRLA Ear exam: PRESENT: normal external ear exam Mouth exam: PRESENT: dry mucosa Neck exam: PRESENT: full ROM Respiratory exam: PRESENT: unlabored Cardiovascular exam: PRESENT: irregular rhythm, tachycardia Vascular exam: PRESENT: normal capillary refill GI/Abdominal exam: PRESENT: soft, tenderness Rectal exam: PRESENT: deferred Gentrourinary exam: PRESENT: indwelling catheter Extremities exam: PRESENT: full ROM Musculoskeletal exam: PRESENT: full ROM Neurological exam: PRESENT: altered Psychiatric exam: PRESENT: agitated Skin exam: PRESENT: normal color Results Laboratory Results: 03/25/19 03:59 03/25/19 03:59 03/25/19 03/25/19 03/25/19 03:59 03:59 04:39 WBC 7.3 RBC 3.47 L Hgb 10.7 L Hct 31.6 L MCV 91 MCH 30.8 MCHC 33.8 RDW 14.3 H Plt Count 157 Seg Neutrophils % 69.4 Carbonic Acid 1.69 H HCO3/H2CO3 Ratio 17:1 ABG pH 7.35 ABG pCO2 56.0 H ABG pO2 63.4 L ABG HCO3 30.2 H ABG O2 Saturation 90.8 L ABG Base Excess 3.5 FiO2 50% Sodium 146.0 H Potassium 3.4 L Chloride 110 H Carbon Dioxide 29 Anion Gap 7 BUN 58 H Creatinine 1.96 H Est GFR ( Amer) 41 L Glucose 157 H Calcium 7.6 L Magnesium 1.9 03/20/19 03:14 Blood Blood Culture - Final NO GROWTH IN 5 DAYS 03/20/19 02:40 Blood Blood Culture - Final NO GROWTH IN 5 DAYS 03/21/19 11:43 Tracheal Aspirate Gram Stain - Final 03/21/19 11:43 Tracheal Aspirate Sputum Culture - Final Pseudomonas Aeruginosa Normal Brittnee Absent 03/20/19 03/20/19 03/20/19 02:40 02:40 07:06 Creatine Kinase 109 CK-MB (CK-2) 2.86 Cancelled Troponin I 0.040 Cancelled NT-Pro-B Natriuret Pep 4540 H 03/20/19 03/20/19 03/20/19 07:54 12:30 17:52 Creatine Kinase CK-MB (CK-2) 10.90 H Troponin I 0.648 1.770 3.420 NT-Pro-B Natriuret Pep 03/21/19 03/21/19 03/21/19 06:10 06:10 11:57 Creatine Kinase 353 H 258 H CK-MB (CK-2) 17.60 H Troponin I 5.350 NT-Pro-B Natriuret Pep 03/21/19 03/21/19 03/21/19 11:57 16:08 16:08 Creatine Kinase 232 H CK-MB (CK-2) 13.90 H 11.60 H Troponin I 4.320 4.530 NT-Pro-B Natriuret Pep 03/22/19 03/24/19 05:31 03:49 Creatine Kinase CK-MB (CK-2) Troponin I 3.240 3.270 NT-Pro-B Natriuret Pep Impressions: Vascular Ultrasound 03/21/19 07:41 IMPRESSION: NO DOPPLER EVIDENCE OF HEMODYNAMICALLY SIGNIFICANT RENAL ARTERY STENOSIS. Chest CT 03/21/19 13:00 IMPRESSION: 1. Findings most compatible CHF with moderate bilateral pleural effusions and bibasilar consolidation, likely atelectasis. Interlobular and septal thickening and patchy ground-glass attenuation, likely edema although superimposed infection is not entirely excluded. 2. Cardiomegaly. Coronary atherosclerosis. 3. Endotracheal tube within the midthoracic trachea. Chest X-Ray 03/22/19 00:00 IMPRESSION: Endotracheal tube, nasogastric tube in good positioning of the 2nd film. Unchanged bilateral pleural effusions with bibasilar airspace disease Renal Ultrasound 03/22/19 00:00 IMPRESSION: No hydronephrosis Mild increased cortical echogenicity from medical renal disease KUB X-Ray 03/23/19 15:17 IMPRESSION: THE TIP OF THE NASOGASTRIC TUBE IN THE STOMACH. NO RADIOGRAPHIC EVIDENCE FOR ACUTE ABDOMINAL DISEASE. Head CT 03/24/19 00:00 IMPRESSION: NO ACUTE INTRACRANIAL FINDINGS. EVIDENCE OF ACUTE STROKE: NO. Assessment & Plan - Diagnosis (1) Acute hypoxemic respiratory failure Is this a current diagnosis for this admission?: Yes Plan: Still intubated and not meeting extubation criteria. Relativlely hypoxic to 90% on 50%probably not far from baseline. However now in Rapid atrial fib to 140. Change sedation to fentanyl for pain. Precedex not working well. No new se cretions. (2) Acute kidney injury Is this a current diagnosis for this admission?: Yes Plan: BUN/Cr improved to about 2. Potassium 3.4, not acidotic. Improving. CContinue stuart IV lasix. (3) COPD with exacerbation Is this a current diagnosis for this admission?: Yes Plan: At this pint he is probably not at baseline but close. Continue vent support until HR under control and less fluid on board. Better pain control. (4) Pulmonary artery hypertension Is this a current diagnosis for this admission?: Yes Plan: Continue lasix for now. (5) Malnutrition of mild degree Is this a current diagnosis for this admission?: Yes Plan: Continue TF at goal. (6) Atrial fibrillation Qualifiers: Atrial fibrillation type: unspecified Qualified Code(s): I48.91 - Unsp ecified atrial fibrillation Is this a current diagnosis for this admission?: Yes Plan: Atrial fib is new and in RVR. Likely as a consequence of catecholemines and stress. Treat with beta blockade. If not converted in a day he will need therapu etic anticoagulation. BP stable. - Time Time Spent with patient: 35 or more minutes Total Critical Time (Minutes): 40 Medications reviewed and adjusted accordingly: Yes Anticipated discharge: SNF Within: Other - Open ended
[2019-03-25] MEDS: CEFEPIME 1 GM/D5W RTU 1 GM/50 ML RTUPB IV SCH ×2 (09:44→21:25)
[2019-03-25] MEDS: HEPARIN SOD (PORCINE) 5,000 UNIT/ML 1 ML VIAL SUBCUT SCH ×2 (09:49→21:25)
[2019-03-25] MEDS: LISINOPRIL 10 MG TABLET PO SCH (09:53)
[2019-03-25] MEDS: GABAPENTIN 300 MG CAPSULE NG SCH ×2 (09:53→21:24)
[2019-03-25] MEDS ORDERED: METOPROLOL TARTRATE 50 MG TABLET PO SCH (10:00)
[2019-03-25] MEDS: FENTANYL CITRATE/PF 600 MCG/60 ML BAG IV PRN ×2 (10:37→22:07)
[2019-03-25] MEDS: POTASSI CL 20 MEQ/50 ML RIDER 20 MEQ/50 ML RTUPB IV SCH ×2 (10:46→12:04)
[2019-03-25] MEDS ORDERED: DIGOXIN INJ 0.5 MG/2 ML AMPULE IV SCH (13:00)
[2019-03-25] MEDS ORDERED: FUROSEMIDE INJ/PF 40 MG/4 ML SDV IV ONE (13:00)
[2019-03-25] MEDS ORDERED: METOPROLOL TARTRATE PF/INJ 5 MG/5 ML SDV IV ONE ×4 (13:00→21:46)
[2019-03-25] MEDS ORDERED: DEXTROSE 5%-WATER 500 ML with AMIODARONE HCL 900 MG IV PRN ×2 (13:04)
[2019-03-25 14:17] LABS: APPEARANCE,URINE CLEAR; BILIRUBIN,URINE NEGATIVE (NEGATIVE); COLOR,URINE STRAW; GLUCOSE, URINE NEGATIVE (NEGATIVE); KETONES,URINE NEGATIVE (NEGATIVE); LEUKOCYTE ESTERASE,URINE NEGATIVE (NEGATIVE); NITRITE,URINE NEGATIVE (NEGATIVE); PROTEIN,URINE 100 mg/dL (NEGATIVE); UROBILINOGEN,URINE NEGATIVE mg/dL (<2.0)
[2019-03-25] MEDS ORDERED: AMIODARONE HCL 150 MG in DEXTROSE 5%-WATER 100 ML IV ONE (14:30)
[2019-03-25] MEDS: PROPOFOL 1,000 MG/100 ML INFUS..BTL IV PRN (15:23)
[2019-03-25] MEDS ORDERED: MAGNESIUM CITRATE 296 ML BOTTLE NG ONE (16:30)
--- NOTE | 2019-03-25 16:51 | RADIOLOGY REPORT (SQ) ---
EXAM DESCRIPTION: CHEST SINGLE VIEW COMPLETED DATE/TIME: 03/25/2019 4:35 pm REASON FOR STUDY: Fever, antibiotics, concernfor VAP COMPARISON: CT chest 03/21/2019 Chest film 03/20/2019, 03/22/2019 EXAM PARAMETERS: NUMBER OF VIEWS: One view. TECHNIQUE: Single frontal radiographic view of the chest acquired. RADIATION DOSE: NA LIMITATIONS: None. FINDINGS: LUNGS AND PLEURA: Moderate bilateral pleural effusions persist, with hazy opacity over the right and left lower chest. Left retrocardiac consolidation atelectasis versus pneumonia. No pneum othorax. MEDIASTINUM AND HILAR STRUCTURES: No masses. Contour normal. HEART AND VASCULAR STRUCTURES: No cardiomegaly BONES: No acute findings. HARDWARE: Endotracheal tube tip 5 cm above the ness. Nasogastric tube hip and side-port in the sto mach. OTHER: No other significant finding. IMPRESSION: Moderate bilateral pleural effusions, left retrocardiac consolidation Endotracheal tube tip 5 cm above the ness TECHNICAL DOCUMENTATION: JOB ID: [id number] [employer]- All Rights Reserved Reading location - IP/workstation name: [email or web address]
--- NOTE | 2019-03-25 17:52 | RADIOLOGY REPORT (SQ) ---
EXAM DESCRIPTION: KUB/ABDOMEN (SINGLE VIEW) COMPLETED DATE/TIME: 03/25/2019 5:37 pm REASON FOR STUDY: NGT replacement COMPARISON: KUB 03/23/2019 NUMBER OF VIEWS: One view. TECHNIQUE: Supine radiographic image of the abdomen acquired. LIMITATIONS: None. FINDINGS: Nasogastric tube tip and side port in the stomach. Left basilar consolidation worrisome f or pneumonia. Gas and stool in the colon. Stomach decompressed. IMPRESSION: Nasogastric tube tip and side port in the stomach. Persistent left retrocardiac consolidation worrisome for pneumonia TECHNICAL DOCUMENTATION: JOB ID: [id number] [employer]- All Rights Reserved Reading location - IP/workstation name: [email or web address]
[2019-03-25] MEDS ORDERED: APIXABAN 5 MG TABLET PO ONE (19:15)
--- NOTE | 2019-03-25 19:27 | Progress Note ---
Provider Note Provider Note: CARDIOLOGY PROGRESS NOTE by Dr. Simran Sanchez on 03/25/2019. REASON for revisiting the patient: Is new onset atrial flutter with rapid ventricular response. Have been asked by Dr. Wick SUBJECTIVE: The patient with respiratory failure, acute renal insufficiency on chronic renal insufficiency, which is improving and history of diabetes mellitus and hypertension, developed sudden onset of atrial flutter with rapid ventricular response. The rate was not controlled with the patient having get gotten Cardizem intravenously, and also to dose of digoxin. Hence cardiology consulted. The patient appears to be hemodynamically stable. Since the patient is this onset was this morning it was thought that it would be better off trying to convert the patient. In view of the patient's renal insufficiency, sotalol is not a very good choice. In spite of the patient's lung problem we will use amiodarone intravenously as a short-term to see if the patient will cardiovert to sinus rhythm chemically. There is no ventricular arrhythmia seen on the monitor. PHYSICAL EXAMINATION: The patient is mildly obese. He is well-groomed. He is not fighting the ventilator. Selected Entries 03/25/19 03/25/19 12:00 14:00 Temperature 101.6 F H 101.5 F H Temperature Axillary Axillary Source Pulse Rate 141 H 94 Respiratory 19 18 Rate Blood Pressure 113/97 H 104/76 [Left Upper Arm ] Blood Pressure 102 85 Mean [Left Upper Arm] Blood Pressure Supine Supine Position [Left Upper Arm] O2 Sat by Pulse 93 94 Oximetry Oxygen Delivery Mechanical Mechanical Method ( Ventilator Ventilator includes room air) Percent of 45 45 Oxygen HEAD: Is atraumatic. Normocephalic. EYES: Pupils are equal round reactive to light. ENT is negative. NECK: Supple. There is no JVD. There is mild accessory muscle respiration use. Trachea central. LUNGS: There is diminished air entry and prolonged expiration. On percussion there is hyperresonance. There is a few dry crackles of the right base. HEART: S1-S2 is heard. S1 is of variable intensity. There is no S3 gallop. There is no S4 gallop there is systolic murmur in the left sternal border and the apex there is no rub. ABDOMEN: Is obese. There is no hepatospleno megaly. Bowel sounds well heard. EXTREMITIES: Femorals are diminished there is no femoral bruits. Leg pulses are diminished. There is trace pedal edema in the right lower extremity. There is no DVT or cellulitis. There is no calf tenderness. There is no cyanosis or clubbing. MOSS GATHERER and PSYCHIATRIC: Not examined due to patient being intubated and sedated. Labs- All tests 24 hr 03/25/19 03/25/19 03/25/19 03:59 03:59 04:39 WBC 7.3 RBC 3.47 L Hgb 10.7 L Hct 31.6 L MCV 91 MCH 30.8 MCHC 33.8 RDW 14.3 H Plt Count 157 Lymph % (Auto) 14.0 [place] % (Auto) 15.7 H Eos % (Auto) 0.7 Baso % (Auto) 0.2 Absolute Neuts (auto) 5.0 Absolute Lymphs (auto) 1.0 Absolute Monos (auto) 1.1 Absolute Eos (auto) 0.0 Absolute Basos (auto) 0.0 Seg Neutrophils % 69.4 Carbonic Acid 1.69 H HCO3/H2CO3 Ratio 17:1 ABG pH 7.35 ABG pCO2 56.0 H ABG pO2 63.4 L ABG HCO3 30.2 H ABG Total CO2 31.9 H ABG O2 Saturation 90.8 L ABG Base Excess 3.5 FiO2 50% Sodium 146.0 H Potassium 3.4 L Chloride 110 H Carbon Dioxide 29 Anion Gap 7 BUN 58 H Creatinine 1.96 H Est GFR ( Amer) 41 L Est GFR (MDRD) Non-Af 34 L Glucose 157 H POC Glucose Calcium 7.6 L Magnesium 1.9 Urine Color Urine Appearance Urine pH Ur Specific [place] Urine Protein Urine Glucose (UA) Urine Ketones Urine Blood Urine Nitrite Urine Bilirubin Urine Urobilinogen Ur Leukocyte Esterase Urine WBC (Auto) Urine RBC (Auto) Squamous Epi Cells Auto Urine Mucus (Auto) Urine Ascorbic Acid 03/25/19 03/25/19 03/25/19 05:54 09:40 11:57 WBC RBC Hgb Hct MCV MCH MCHC RDW Plt Count Lymph % (Auto) [place] % (Auto) Eos % (Auto) Baso % (Auto) Absolute Neuts (auto) Absolute Lymphs (auto) Absolute Monos (auto) Absolute Eos (auto) Absolute Basos (auto) Seg Neutrophils % Carbonic Acid HCO3/H2CO3 Ratio ABG pH ABG pCO2 ABG pO2 ABG HCO3 ABG Total CO2 ABG O2 Saturation ABG Base Excess FiO2 Sodium Potassium Chloride Carbon Dioxide Anion Gap BUN Creatinine Est GFR ( Amer) Est GFR (MDRD) Non-Af Glucose POC Glucose 144 H 217 H 184 H Calcium Magnesium Urine Color Urine Appearance Urine pH Ur Specific [place] Urine Protein Urine Glucose (UA) Urine Ketones Urine Blood Urine Nitrite Urine Bilirubin Urine Urobilinogen Ur Leukocyte Esterase Urine WBC (Auto) Urine RBC (Auto) Squamous Epi Cells Auto Urine Mucus (Auto) Urine Ascorbic Acid 03/25/19 03/25/19 13:57 18:19 WBC RBC Hgb Hct MCV MCH MCHC RDW Plt Count Lymph % (Auto) [place] % (Auto) Eos % (Auto) Baso % (Auto) Absolute Neuts (auto) Absolute Lymphs (auto) Absolute Monos (auto) Absolute Eos (auto) Absolute Basos (auto) Seg Neutrophils % Carbonic Acid HCO3/H2CO3 Ratio ABG pH ABG pCO2 ABG pO2 ABG HCO3 ABG Total CO2 ABG O2 Saturation ABG Base Excess FiO2 Sodium Potassium Chloride Carbon Dioxide Anion Gap BUN Creatinine Est GFR ( Amer) Est GFR (MDRD) Non-Af Glucose POC Glucose 176 H Calcium Magnesium Urine Color STRAW Urine Appearance CLEAR Urine pH 6.0 Ur Specific [place] 1.010 Urine Protein 100 H Urine Glucose (UA) NEGATIVE Urine Ketones NEGATIVE Urine Blood MODERATE H Urine Nitrite NEGATIVE Urine Bilirubin NEGATIVE Urine Urobilinogen NEGATIVE Ur Leukocyte Esterase NEGATIVE Urine WBC (Auto) 3 Urine RBC (Auto) 14 Squamous Epi Cells Auto <1 Urine Mucus (Auto) RARE Urine Ascorbic Acid NEGATIVE Chest X-Ray 03/20/19 00:00 IMPRESSION: Worsening congestive failure with interstitial pulmonary edema. Chest X-Ray 03/20/19 00:00 IMPRESSION: Endotracheal tube is in place. Moderate pulmonary edema. Findings correlate from prior study. Chest X-Ray 03/20/19 02:37 IMPRESSION: Mild increased reticular interstitial changes may all be chronic in nature but cannot exclude minimal edema or atypical pneumonia. Correlation with an old exam or short-term follow-up will be useful. Vascular Ultrasound 03/21/19 07:41 IMPRESSION: NO DOPPLER EVIDENCE OF HEMODYNAMICALLY SIGNIFICANT RENAL ARTERY STENOSIS. Chest CT 03/21/19 13:00 IMPRESSION: 1. Findings most compatible CHF with moderate bilateral pleural effusions and bibasilar consolidation, likely atelectasis. Interlobular and septal thickening and patchy ground-glass attenuation, likely edema although superimposed infection is not entirely excluded. 2. Cardiomegaly. Coronary atherosclerosis. 3. Endotracheal tube within the midthoracic trachea. Chest X-Ray 03/22/19 00:00 IMPRESSION: Endotracheal tube, nasogastric tube in good positioning of the 2nd film. Unchanged bilateral pleural effusions with bibasilar airspace disease Renal Ultrasound 03/22/19 00:00 IMPRESSION: No hydronephrosis Mild increased cortical echogenicity from medical renal disease KUB X-Ray 03/23/19 15:17 IMPRESSION: THE TIP OF THE NASOGASTRIC TUBE IN THE STOMACH. NO RADIOGRAPHIC EVIDENCE FOR ACUTE ABDOMINAL DISEASE. Head CT 03/24/19 00:00 IMPRESSION: NO ACUTE INTRACRANIAL FINDINGS. EVIDENCE OF ACUTE STROKE: NO. Chest X-Ray 03/25/19 00:00 IMPRESSION: Moderate bilateral pleural effusions, left retrocardiac consolida tion Endotracheal tube tip 5 cm above the ness KUB X-Ray 03/25/19 00:00 IMPRESSION: Nasogastric tube tip and side port in the stomach. Persistent left retrocardiac consolidation worrisome for pneumonia IMPRESSION/RECOMMENDATION: 1. New onset atrial flutter with rapid ventricular response. The patient did received digoxin and Cardizem intravenously. Would recommend stopping digoxin and Cardizem and started the patient on amiodarone bolus and infusion, at least for short-term to see the patient converts to sinus rhythm. The patient is also on Eliquis which has been started by Dr. Wick at 5 mg p.o. twice daily. 2. Acute on probably chronic respiratory failure: Continue ventilators, continue antibiotics. 3. COPD: Continue ventilator support. Continue bronchodilators and antibiotics. 4. Elevated troponin I: Non-ST elevation [place] versus secondary to supply demand mismatch. Agree with stopping the patient's IV heparin since her troponin is trending down. Later would recommend that the patient have a IV Lexiscan Cardiolite stress test.. Will recheck troponin I and EKG in the a.m. 5. Acute on chronic kidney disease. The patient's current baseline CKD stage III. At present CKD improved to stage III. Avoid nephrotoxic drugs. 6. Retrocardiac left lower lobe pneumonia: Continue antibiotics. 7. History of hypertension: At present patient blood pressure low requiring pressors. 8. Diabetes mellitus: Continue insulin as per blood sugar checks. 9. Possible interstitial lung disease.: The CT scan is reported as findings w hich did not support ILD. But I feel that there is some findings that could be ILD. 10. Episodic heart failure secondary to hypertensive blood pressure spikes. Note that the patient's LV ejection fraction is normal. 11. Peripheral vascular disease as per history. Medications reviewed medications added. Medication regimen and management plan discussed with rn triage/attending physician on the case. Medical decision making is of high complexity. 40 minutes spent on the patient with more than 50% of time spent in direct patient care.
[2019-03-26] MEDS: PROPOFOL 1,000 MG/100 ML INFUS..BTL IV PRN ×2 (00:35→09:56)
[2019-03-26] MEDS: ALBUTEROL SULFATE 0.042% NEB (1.25 MG/3 ML) AMPUL NEB SCH ×6 (00:51→21:28)
--- NOTE | 2019-03-26 00:57 | EKG REPORT ---
SEVERITY:- ABNORMAL ECG - ATRIAL FIBRILLATION : Confirmed by: Emir Benavides 26-Mar-2019 00:56:37
--- NOTE | 2019-03-26 00:57 | EKG REPORT ---
SEVERITY:- BORDERLINE ECG - SINUS RHYTHM BORDERLINE T ABNORMALITIES, INFERIOR LEADS : Confirmed by: Emir Benavides 26-Mar-2019 00:56:28
[2019-03-26 04:15] LABS: ABSOLUTE EOSINOPHILS # (AUTO) 0.3 10^3/uL (0.0-0.6); ABSOLUTE LYMPHOCYTES (AUTO) 1.7 10^3/uL (0.5-4.7); ABSOLUTE MONOCYTES (AUTO) 1.2 10^3/uL (0.1-1.4); ABSOLUTE NEUT (AUTO) 5.9 10^3/uL (1.7-8.2); BASOPHILS % (AUTO) 0.5 % (0-2); EOSINOPHILS % (AUTO) 3.4 % (0-6); HEMATOCRIT 31.9 % (37.9-51.0); HEMOGLOBIN 10.7 g/dL (13.5-17.0); LYMPHOCYTES % (AUTO) 18.2 % (13-45); MEAN CORPUSCULAR HEMOGLOBIN 30.7 pg (27.0-33.4); MEAN CORPUSCULAR HGB CONC 33.6 g/dL (32.0-36.0); MEAN CORPUSCULAR VOLUME 91 fl (80-97); MONOCYTES % (AUTO) 13.1 % (3-13); PLATELET COUNT 156 10^3/uL (150-450); RED BLOOD COUNT 3.49 10^6/uL (4.35-5.55); RED CELL DISTRIBUTION WIDTH 14.5 % (11.5-14.0); SEGMENTED NEUTROPHILS % (AUTO) 64.8 % (42-78); TOTAL CELLS COUNTED % (AUTO) 100 %; WHITE BLOOD COUNT 9.2 10^3/uL (4.0-10.5)
[2019-03-26 04:42] LABS: ANION GAP 6 (5-19); BLOOD UREA NITROGEN 56 mg/dL (7-20); CALCIUM 7.6 mg/dL (8.4-10.2); CARBON DIOXIDE 29 mmol/L (22-30); CHLORIDE 112 mmol/L (98-107); GLUCOSE 131 mg/dL (75-110); POTASSIUM 3.3 mmol/L (3.6-5.0)
[2019-03-26] MEDS: INSULIN LISPRO 100 UNIT/ML 3 ML VIAL SUBCUT SCH ×5 (05:30→23:31)
[2019-03-26] MEDS: NORMAL SALINE 1000 ML 1,000 ML IV PRN (06:03)
--- NOTE | 2019-03-26 07:26 | EKG REPORT ---
SEVERITY:- ABNORMAL ECG - ACCELERATED JUNCTIONAL RHYTHM LOW VOLTAGE IN FRONTAL LEADS NONSPECIFIC T ABNORMALITIES, LATERAL LEADS : Confirmed by: Emir Benavides 26-Mar-2019 07:25:28
[2019-03-26] MEDS ORDERED: METHYLPREDNISOLONE INJ 40 MG/1 ML SDV IV SCH (09:15)
[2019-03-26] MEDS: GABAPENTIN 300 MG CAPSULE NG SCH ×2 (09:46→21:34)
[2019-03-26] MEDS: FENTANYL CITRATE/PF 600 MCG/60 ML BAG IV PRN ×2 (09:46→21:55)
[2019-03-26] MEDS: APIXABAN 5 MG TABLET PO SCH ×2 (09:46→21:33)
[2019-03-26] MEDS: FAMOTIDINE INJ/PF 20 MG/2 ML SDV IV SCH (09:46)
[2019-03-26] MEDS: LISINOPRIL 10 MG TABLET PO SCH (09:46)
[2019-03-26] MEDS: CEFEPIME 1 GM/D5W RTU 1 GM/50 ML RTUPB IV SCH (09:47)
[2019-03-26] MEDS: INSULIN GLARGINE,HUM.REC.ANLOG 1,000 UNIT/10 ML VIAL SUBCUT SCH ×2 (09:48→17:53)
[2019-03-26 10:25] LABS: C DIFFICILE GDH NEGATIVE (NEGATIVE)
[2019-03-26] MEDS ORDERED: METOPROLOL TARTRATE 50 MG TABLET ONE (10:25)
[2019-03-26 10:55] LABS: ARTERIAL BLOOD BASE EXCESS -0.8 mmol/L; ARTERIAL BLOOD H2CO3 1.48 mmol/L (1.05-1.35); ARTERIAL BLOOD HCO3 25.5 mmol/L (20-24); ARTERIAL BLOOD O2 SATURATION 82.1 % (94-98); ARTERIAL BLOOD PCO2 49.1 mmHg (35-45); ARTERIAL BLOOD PH 7.33 (7.35-7.45); ARTERIAL BLOOD PO2 49.5 mmHg (80-100)
[2019-03-26 10:58] LABS: ARTERIAL BLOOD FIO2 30%
--- NOTE | 2019-03-26 11:24 | PDOC PROGRESS REPORT ---
Subjective Progress Note for:: 03/26/19 Subjective:: ICU Progress Note Pt remains intubated and sedated. No acute overnight events. Reason For Visit: ACUTE HYPOXIC RESPIRATORY FAILURE,ACUTE KIDNEY Physical Exam Vital Signs: Temp Pulse Resp BP Pulse Ox 97.2 F 99 19 176/77 H 93 03/26/19 08:00 03/26/19 10:00 03/26/19 10:00 03/26/19 10:00 03/26/19 10:00 Intake & Output 03/25/19 03/26/19 03/27/19 06:59 06:59 06:59 Intake Total 3115 2894 268 Output Total 2775 2095 95 Balance 340 799 173 Weight 109.6 kg 111.5 kg General appearance: PRESENT: no acute distress, well-developed, well-nourished, other - intubated and sedated Head exam: PRESENT: atraumatic, normocephalic Respiratory exam: PRESENT: decreased breath sounds, unlabored Cardiovascular exam: PRESENT: RRR GI/Abdominal exam: PRESENT: soft, other - non-tender, non-distended Gentrourinary exam: PRESENT: indwelling catheter Extremities exam: PRESENT: other - 1+ edema Results Laboratory Results: 03/26/19 03:55 03/26/19 03:55 03/25/19 03/26/19 03/26/19 13:57 03:55 03:55 WBC 9.2 RBC 3.49 L Hgb 10.7 L Hct 31.9 L MCV 91 MCH 30.7 MCHC 33.6 RDW 14.5 H Plt Count 156 Seg Neutrophils % 64.8 Carbonic Acid HCO3/H2CO3 Ratio ABG pH ABG pCO2 ABG pO2 ABG HCO3 ABG O2 Saturation ABG Base Excess FiO2 Sodium 146.9 H Potassium 3.3 L Chloride 112 H Carbon Dioxide 29 Anion Gap 6 BUN 56 H Creatinine 1.95 H Est GFR ( Amer) 42 L Glucose 131 H Calcium 7.6 L Magnesium 2.0 Urine Color STRAW Urine Appearance CLEAR Urine pH 6.0 Ur Specific [place] 1.010 Urine Protein 100 H Urine Glucose (UA) NEGATIVE Urine Ketones NEGATIVE Urine Blood MODERATE H Urine Nitrite NEGATIVE Ur Leukocyte Esterase NEGATIVE Urine WBC (Auto) 3 Urine RBC (Auto) 14 03/26/19 10:30 WBC RBC Hgb Hct MCV MCH MCHC RDW Plt Count Seg Neutrophils % Carbonic Acid 1.48 H HCO3/H2CO3 Ratio 17:1 ABG pH 7.33 L ABG pCO2 49.1 H ABG pO2 49.5 L ABG HCO3 25.5 H ABG O2 Saturation 82.1 L ABG Base Excess -0.8 FiO2 30% Sodium Potassium Chloride Carbon Dioxide Anion Gap BUN Creatinine Est GFR ( Amer) Glucose Calcium Magnesium Urine Color Urine Appearance Urine pH Ur Specific [place] Urine Protein Urine Glucose (UA) Urine Ketones Urine Blood Urine Nitrite Ur Leukocyte Esterase Urine WBC (Auto) Urine RBC (Auto) 03/20/19 03/20/19 03/20/19 02:40 02:40 07:06 Creatine Kinase 109 CK-MB (CK-2) 2.86 Cancelled Troponin I 0.040 Cancelled NT-Pro-B Natriuret Pep 4540 H 03/20/19 03/20/19 03/20/19 07:54 12:30 17:52 Creatine Kinase CK-MB (CK-2) 10.90 H Troponin I 0.648 1.770 3.420 NT-Pro-B Natriuret Pep 03/21/19 03/21/19 03/21/19 06:10 06:10 11:57 Creatine Kinase 353 H 258 H CK-MB (CK-2) 17.60 H Troponin I 5.350 NT-Pro-B Natriuret Pep 03/21/19 03/21/19 03/21/19 11:57 16:08 16:08 Creatine Kinase 232 H CK-MB (CK-2) 13.90 H 11.60 H Troponin I 4.320 4.530 NT-Pro-B Natriuret Pep 03/22/19 03/24/19 05:31 03:49 Creatine Kinase CK-MB (CK-2) Troponin I 3.240 3.270 NT-Pro-B Natriuret Pep Impressions: Vascular Ultrasound 03/21/19 07:41 IMPRESSION: NO DOPPLER EVIDENCE OF HEMODYNAMICALLY SIGNIFICANT RENAL ARTERY STENOSIS. Chest CT 03/21/19 13:00 IMPRESSION: 1. Findings most compatible CHF with moderate bilateral pleural effusions and bibasilar consolidation, likely atelectasis. Interlobular and septal thickening and patchy ground-glass attenuation, likely edema although superimposed infection is not entirely excluded. 2. Cardiomegaly. Coronary atherosclerosis. 3. Endotracheal tube within the midthoracic trachea. Renal Ultrasound 03/22/19 00:00 IMPRESSION: No hydronephrosis Mild increased cortical echogenicity from medical renal disease Head CT 03/24/19 00:00 IMPRESSION: NO ACUTE INTRACRANIAL FINDINGS. EVIDENCE OF ACUTE STROKE: NO. Chest X-Ray 03/25/19 00:00 IMPRESSION: Moderate bilateral pleural effusions, left retrocardiac consolidation Endotracheal tube tip 5 cm above the ness KUB X-Ray 03/25/19 00:00 IMPRESSION: Nasogastric tube tip and side port in the stomach. Persistent left retrocardiac consolidation worrisome for pneumonia Assessment & Plan - Diagnosis (1) Acute respiratory failure Qualifiers: Respiratory failure complication: unspecified whether with hypoxia or hypercapnia Qualified Code(s): J96.00 - Acute respiratory failure, unspecified whether with hypoxia or hypercapnia Is this a current diagnosis for this admission?: Yes (2) Pseudomonas pneumonia Qualifiers: Lung location: unspecified part of lung Is this a current diagnosis for this admission?: Yes (3) COPD with exacerbation Is this a current diagnosis for this admission?: Yes (4) Atrial flutter Is this a current diagnosis for this admission?: Yes (5) Acute kidney injury Is this a current diagnosis for this admission?: Yes (6) CKD (chronic kidney disease) stage 3, GFR 30-59 ml/min Is this a current diagnosis for this admission?: Yes (7) NSTEMI (non-ST elevated myocardial infarction) Is this a current diagnosis for this admission?: Yes (8) Diabetes Qualifiers: Diabetes mellitus type: type 2 Diabetes mellitus residential insulin use: unspecified residential insulin use status Chronic kidney disease stage: stage 3 (moderate) Is this a current diagnosis for this admission?: Yes - Plan Summary Plan Summary: Assessment: Critically ill 68 yo man with acute respiratory failure, pseudomonas PNA, AECOPD, aflutter, HTN, NSTEMI, VIDYA, CKD, DM Plan: 1. Respiratory: acute respiratory failure. Will try to extubate when no longer requiring continuous sedation 2. Pulmonary: Pseudomonas PNA, continue cefepime. AECOPD, start steroids. Continue breathing treatements. Possible ILD 3. CV: atrial flutter, rate controlled. NSTEMI due to demand ischemia. Amiodarone drip, lopressor, lisinopril. D/C IVF. Care per Dr. Torres 4. Renal:VIDYA, resolved. CKD 3. Continue to monitor 5. ID: pseudomonas PNA. Fever. Continue cefepime. Repeat blood and sputum cultures 6. Endocrine: DM. lantus, SSI 7. Heme: on eliquis for afib 8. Nutrition: tolerating tube feeds Critical care time= 50 min, excluding procedures
[2019-03-26] MEDS: METOPROLOL TARTRATE 50 MG TABLET NG SCH ×2 (11:34→21:33)
--- NOTE | 2019-03-26 12:08 | EKG REPORT ---
SEVERITY:- ABNORMAL ECG - SINUS TACHYCARDIA ANTERIOR INFARCT, AGE INDETERMINATE : Confirmed by: Simran Sanchez MD 26-Mar-2019 12:08:11
--- NOTE | 2019-03-26 12:18 | Progress Note ---
Provider Note Provider Note: CARDIOLOGYPROGRESS NOTE by Dr. Simran Sanchez on 03/26/2019. SUBJECTIVE: The patient is converted to sinus rhythm with short AL interval. There is no ventricular arrhythmia seen. The patient is more awake today. Is able to follow some commands. He is still sedated. There is no bleeding on Eliquis. PHYSICAL EXAMINATION: The patient is mildly obese. He is intubated and sedation. Selected Entries 03/26/19 03/26/19 03/26/19 06:00 08:00 09:29 Temperature 97.2 F Temperature Axillary Source Heart Rate ( 94 Monitors) Blood Pressure 158/65 H Blood Pressure 96 Mean O2 Sat by Pulse 91 L Oximetry Oxygen Delivery Mechanical Method ( Ventilator includes room air) Fraction of 30 Inspired Oxygen (FIO2) HEAD: Is atraumatic. Normocephalic. EYES: Pupils are equal round reactive to light. ENT is negative. NECK: Supple. There is no JVD. There is mild accessory muscle respiration use. Trachea central. LUNGS: There is diminished air entry and prolonged expiration. On percussion there is hyperresonance. There is a few dry crackles of the right base. HEART: S1-S2 is heard. There is no S3 gallop. There is no S4 gallop there is systolic murmur in the left sternal border and the apex there is no rub. ABDOMEN: Is obese. There is no hepatospleno megaly. Bowel sounds well heard. EXTREMITIES: Femorals are diminished there is no femoral bruits. Leg pulses are diminished. There is trace pedal edema in the right lower extremity. There is no DVT or cellulitis. There is no calf tenderness. There is no cyanosis or clubbing. VISION CARE ASSOCIATE and PSYCHIATRIC: Not examined due to patient being intubated and sedated. SINUS TACHYCARDIA [[id number]] . ANTERIOR INFARCT, AGE INDETERMINATE. Labs- All tests 24 hr 03/22/19 03/25/19 03/25/19 23:08 13:57 18:19 WBC RBC Hgb Hct MCV MCH MCHC RDW Plt Count Lymph % (Auto) [place] % (Auto) Eos % (Auto) Baso % (Auto) Absolute Neuts (auto) Absolute Lymphs (auto) Absolute Monos (auto) Absolute Eos (auto) Absolute Basos (auto) Seg Neutrophils % Carbonic Acid HCO3/H2CO3 Ratio ABG pH ABG pCO2 ABG pO2 ABG HCO3 ABG Total CO2 ABG O2 Saturation ABG Base Excess FiO2 Sodium Potassium Chloride Carbon Dioxide Anion Gap BUN Creatinine Est GFR ( Amer) Est GFR (MDRD) Non-Af Glucose POC Glucose 394 H 176 H Calcium Magnesium Urine Color STRAW Urine Appearance CLEAR Urine pH 6.0 Ur Specific [place] 1.010 Urine Protein 100 H Urine Glucose (UA) NEGATIVE Urine Ketones NEGATIVE Urine Blood MODERATE H Urine Nitrite NEGATIVE Urine Bilirubin NEGATIVE Urine Urobilinogen NEGATIVE Ur Leukocyte Esterase NEGATIVE Urine WBC (Auto) 3 Urine RBC (Auto) 14 Squamous Epi Cells Auto <1 Urine Mucus (Auto) RARE Urine Ascorbic Acid NEGATIVE Stl Occult Blood (ICT) Stl C. Difficile GDH Ag Stl C.difficile Tox A&B 03/26/19 03/26/19 03/26/19 01:25 01:45 03:55 WBC RBC Hgb Hct MCV MCH MCHC RDW Plt Count Lymph % (Auto) [place] % (Auto) Eos % (Auto) Baso % (Auto) Absolute Neuts (auto) Absolute Lymphs (auto) Absolute Monos (auto) Absolute Eos (auto) Absolute Basos (auto) Seg Neutrophils % Carbonic Acid HCO3/H2CO3 Ratio ABG pH ABG pCO2 ABG pO2 ABG HCO3 ABG Total CO2 ABG O2 Saturation ABG Base Excess FiO2 Sodium 146.9 H Potassium 3.3 L Chloride 112 H Carbon Dioxide 29 Anion Gap 6 BUN 56 H Creatinine 1.95 H Est GFR ( Amer) 42 L Est GFR (MDRD) Non-Af 34 L Glucose 131 H POC Glucose Calcium 7.6 L Magnesium 2.0 Urine Color Urine Appearance Urine pH Ur Specific [place] Urine Protein Urine Glucose (UA) Urine Ketones Urine Blood Urine Nitrite Urine Bilirubin Urine Urobilinogen Ur Leukocyte Esterase Urine WBC (Auto) Urine RBC (Auto) Squamous Epi Cells Auto Urine Mucus (Auto) Urine Ascorbic Acid Stl Occult Blood (ICT) POSITIVE Stl C. Difficile GDH Ag NEGATIVE Stl C.difficile Tox A&B NEGATIVE 03/26/19 03/26/19 03/26/19 03:55 10:07 10:30 WBC 9.2 RBC 3.49 L Hgb 10.7 L Hct 31.9 L MCV 91 MCH 30.7 MCHC 33.6 RDW 14.5 H Plt Count 156 Lymph % (Auto) 18.2 [place] % (Auto) 13.1 H Eos % (Auto) 3.4 Baso % (Auto) 0.5 Absolute Neuts (auto) 5.9 Absolute Lymphs (auto) 1.7 Absolute Monos (auto) 1.2 Absolute Eos (auto) 0.3 Absolute Basos (auto) 0.0 Seg Neutrophils % 64.8 Carbonic Acid 1.48 H HCO3/H2CO3 Ratio 17:1 ABG pH 7.33 L ABG pCO2 49.1 H ABG pO2 49.5 L ABG HCO3 25.5 H ABG Total CO2 27.0 ABG O2 Saturation 82.1 L ABG Base Excess -0.8 FiO2 30% Sodium Potassium Chloride Carbon Dioxide Anion Gap BUN Creatinine Est GFR ( Amer) Est GFR (MDRD) Non-Af Glucose POC Glucose 167 H Calcium Magnesium Urine Color Urine Appearance Urine pH Ur Specific [place] Urine Protein Urine Glucose (UA) Urine Ketones Urine Blood Urine Nitrite Urine Bilirubin Urine Urobilinogen Ur Leukocyte Esterase Urine WBC (Auto) Urine RBC (Auto) Squamous Epi Cells Auto Urine Mucus (Auto) Urine Ascorbic Acid Stl Occult Blood (ICT) Stl C. Difficile GDH Ag Stl C.difficile Tox A&B Chest X-Ray 03/20/19 00:00 IMPRESSION: Worsening congestive failure with interstitial pulmonary edema. Chest X-Ray 03/20/19 00:00 IMPRESSION: Endotracheal tube is in place. Moderate pulmonary edema. Findings correlate from prior study. Chest X-Ray 03/20/19 02:37 IMPRESSION: Mild increased reticular interstitial changes may all be chronic in nature but cannot exclude minimal edema or atypical pneumonia. Correlation with an old exam or short-term follow-up will be useful. Vascular Ultrasound 03/21/19 07:41 IMPRESSION: NO DOPPLER EVIDENCE OF HEMODYNAMICALLY SIGNIFICANT RENAL ARTERY STENOSIS. Chest CT 03/21/19 13:00 IMPRESSION: 1. Findings most compatible CHF with moderate bilateral pleural effusions and bibasilar consolidation, likely atelectasis. Interlobular and septal thickening and patchy ground-glass attenuation, likely edema although superimposed infection is not entirely excluded. 2. Cardiomegaly. Coronary atherosclerosis. 3. Endotracheal tube within the midthoracic trachea. Chest X-Ray 03/22/19 00:00 IMPRESSION: Endotracheal tube, nasogastric tube in good positioning of the 2nd film. Unchanged bilateral pleural effusions with bibasilar airspace disease Renal Ultrasound 03/22/19 00:00 IMPRESSION: No hydronephrosis Mild increased cortical echogenicity from medical renal disease KUB X-Ray 03/23/19 15:17 IMPRESSION: THE TIP OF THE NASOGASTRIC TUBE IN THE STOMACH. NO RADIOGRAPHIC EVIDENCE FOR ACUTE ABDOMINAL DISEASE. Head CT 03/24/19 00:00 IMPRESSION: NO ACUTE INTRACRANIAL FINDINGS. EVIDENCE OF ACUTE STROKE: NO. Chest X-Ray 03/25/19 00:00 IMPRESSION: Moderate bilateral pleural effusions, left retrocardiac consolidation Endotracheal tube tip 5 cm above the ness KUB X-Ray 03/25/19 00:00 IMPRESSION: Nasogastric tube tip and side port in the stomach. Persistent left retrocardiac consolidation worrisome for pneumonia IMPRESSION/RECOMMENDATION: 1.Paroxysmal atrial flutter. At present patient sinus rhythm with short AL interval. The patient's amiodarone. We will start the patient on metoprolol 50 mg p.o. every 4 hours. Continue Eliquis. 2. Acute on probably chronic respiratory failure: Continue ventilators, continue antibiotics. 3. COPD: Continue ventilator support. Continue bronchodilators and antibiotics. 4. Elevated troponin I: Non-ST elevation [place] versus secondary to supply demand mismatch. Agree with stopping the patient's IV heparin since her troponin is trending down. Later would recommend that the patient have a IV Lexiscan Cardiolite stress test.. Will recheck troponin I and EKG in the a.m. 5. Acute on chronic kidney disease. The patient's current baseline CKD stage III. At present CKD improved to stage III. Avoid nephrotoxic drugs. 6. Retrocardiac left lower lobe pneumonia: Continue antibiotics. 7. History of hypertension: At present patient blood pressure low requiring pressors. 8. Diabetes mellitus: Continue insulin as per blood sugar checks. 9. Possible interstitial lung disease.: The CT scan is reported as findings which did not support ILD. But I feel that there is some findings that could be ILD. 10. Episodic heart failure secondary to hypertensive blood pressure spikes. Note that the patient's LV ejection fraction is normal. 11. Peripheral vascular disease as per history.
[2019-03-26] MEDS: METHYLPREDNISOLONE INJ 125 MG/2 ML SDV IV SCH ×3 (12:25→23:31)
--- NOTE | 2019-03-26 12:51 | RADIOLOGY REPORT (SQ) ---
EXAM DESCRIPTION: CHEST SINGLE VIEW COMPLETED DATE/TIME: 03/26/2019 12:31 pm REASON FOR STUDY: acute respiratory failure, PNA COMPARISON: 03/25/2019 EXAM PARAMETERS: NUMBER OF VIEWS: One view. TECHNIQUE: Single frontal radiographic view of the chest acquired. RADIATION DOSE: NA LIMITATIONS: None. FINDINGS: LUNGS AND PLEURA: Bilateral pleural effusions are once again seen. There is considerable retrocardiac opacification on the left. The pleural effusions appear to have increased. MEDIASTINUM AND HILAR STRUCTURES: No masses. Contour normal. HEART AND VASCULAR STRUCTURES: Heart normal in size. Normal vasculature. BONES: No acute findings. HARDWARE: An endotracheal tube has its tip 5 cm above the ness. An NG tube extends to the stomach. OTHER: No other significant finding. IMPRESSION: Bilateral pleural effusions have increased. Airspace disease left lower lobe, consolida tion versus atelectasis. TECHNICAL DOCUMENTATION: JOB ID: [id number] [employer]- All Rights Reserved Reading location - IP/workstation name: [email or web address]
[2019-03-26] MEDS: CEFEPIME 2 GM/D5W RTU 2 GM/50 ML RTUPB IV SCH (21:32)
[2019-03-27] MEDS: PROPOFOL 1,000 MG/100 ML INFUS..BTL IV PRN ×3 (00:07→17:41)
[2019-03-27] MEDS: ALBUTEROL SULFATE 0.042% NEB (1.25 MG/3 ML) AMPUL NEB SCH ×6 (00:19→20:55)
[2019-03-27 04:01] LABS: ANION GAP 8 (5-19); BLOOD UREA NITROGEN 69 mg/dL (7-20); CALCIUM 8.1 mg/dL (8.4-10.2); CARBON DIOXIDE 29 mmol/L (22-30); CHLORIDE 110 mmol/L (98-107); GLUCOSE 237 mg/dL (75-110)
[2019-03-27 05:10] LABS: ARTERIAL BLOOD BASE EXCESS 2.6 mmol/L; ARTERIAL BLOOD H2CO3 1.57 mmol/L (1.05-1.35); ARTERIAL BLOOD HCO3 28.4 mmol/L (20-24); ARTERIAL BLOOD O2 SATURATION 88.1 % (94-98); ARTERIAL BLOOD PH 7.36 (7.35-7.45); ARTERIAL BLOOD PO2 57.2 mmHg (80-100)
[2019-03-27 05:12] LABS: ARTERIAL BLOOD FIO2 35%
[2019-03-27] MEDS: INSULIN LISPRO 100 UNIT/ML 3 ML VIAL SUBCUT SCH ×4 (05:27→23:13)
[2019-03-27] MEDS: METHYLPREDNISOLONE INJ 125 MG/2 ML SDV IV SCH ×4 (05:27→23:12)
--- NOTE | 2019-03-27 08:29 | RADIOLOGY REPORT (SQ) ---
EXAM DESCRIPTION: CHEST SINGLE VIEW COMPLETED DATE/TIME: 03/27/2019 5:54 am REASON FOR STUDY: acute respirator failure, PNA COMPARISON: AP view of the chest from 03/26/2019. EXAM PARAMETERS: NUMBER OF VIEWS: One view. TECHNIQUE: Single frontal radiographic view of the chest acquired. RADIATION DOSE: NA LIMITATIONS: None. FINDINGS: LUNGS AND PLEURA: The asymmetric bibasilar pleural and parenchymal opacities that obscure the contour of the hemidiaphragms and blunt the costophrenic sulci are unchanged. There is no pneumo thorax. MEDIASTINUM AND HILAR STRUCTURES: Stable mediastinal and hilar contours. HEART AND VASCULAR STRUCTURES: The cardiac silhouette is partially obscured. The pulmonary vasculatu re is indistinct. BONES: No acute findings. HARDWARE: The tip of the endotracheal tube projects 5 cm above the ness. The tip of the enteric tu be projects past the gastroesophageal junction and outside the field of view of the radiograph. OTHER: No other finding. IMPRESSION: Unchanged radiographic appearance of the chest as detailed above. TECHNICAL DOCUMENTATION: JOB ID: [id number] [employer]- All Rights Reserved Reading location - IP/workstation name: [email or web address]
[2019-03-27 09:03] LABS: ABSOLUTE LYMPHOCYTES (AUTO) 0.6 10^3/uL (0.5-4.7); ABSOLUTE MONOCYTES (AUTO) 0.5 10^3/uL (0.1-1.4); ABSOLUTE NEUT (AUTO) 8.5 10^3/uL (1.7-8.2); BASOPHILS % (AUTO) 0.3 % (0-2); HEMATOCRIT 32.7 % (37.9-51.0); HEMOGLOBIN 10.8 g/dL (13.5-17.0); MEAN CORPUSCULAR HEMOGLOBIN 30.6 pg (27.0-33.4); MEAN CORPUSCULAR VOLUME 93 fl (80-97); MONOCYTES % (AUTO) 4.8 % (3-13); PLATELET COUNT 158 10^3/uL (150-450); RED BLOOD COUNT 3.52 10^6/uL (4.35-5.55); RED CELL DISTRIBUTION WIDTH 15.2 % (11.5-14.0); SEGMENTED NEUTROPHILS % (AUTO) 88.9 % (42-78); TOTAL CELLS COUNTED % (AUTO) 100 %; WHITE BLOOD COUNT 9.6 10^3/uL (4.0-10.5)
[2019-03-27] MEDS: HYDRALAZINE HCL INJ/PF 20 MG/1 ML SDV IV PRN (09:57)
[2019-03-27] MEDS: FAMOTIDINE INJ/PF 20 MG/2 ML SDV IV SCH (09:58)
[2019-03-27] MEDS: APIXABAN 5 MG TABLET PO SCH ×2 (09:58→22:44)
[2019-03-27] MEDS: METOPROLOL TARTRATE 50 MG TABLET NG SCH ×2 (09:58→22:44)
[2019-03-27] MEDS: GABAPENTIN 300 MG CAPSULE NG SCH ×2 (09:58→22:44)
[2019-03-27] MEDS: INSULIN GLARGINE,HUM.REC.ANLOG 1,000 UNIT/10 ML VIAL SUBCUT SCH ×2 (09:58→17:35)
[2019-03-27] MEDS: LISINOPRIL 10 MG TABLET PO SCH (09:58)
[2019-03-27] MEDS ORDERED: AMLODIPINE BESYLATE 10 MG TABLET PO SCH (10:04)
[2019-03-27] MEDS: FENTANYL CITRATE/PF 600 MCG/60 ML BAG IV PRN ×2 (10:05→22:00)
[2019-03-27] MEDS: CEFEPIME 2 GM/D5W RTU 2 GM/50 ML RTUPB IV SCH ×2 (10:08→22:43)
--- NOTE | 2019-03-27 10:13 | PDOC PROGRESS REPORT ---
Subjective Progress Note for:: 03/27/19 Subjective:: ICU Progress Note. Pt remains intubated and sedated. Is hypertensive this am. Reason For Visit: ACUTE HYPOXIC RESPIRATORY FAILURE,ACUTE KIDNEY Physical Exam Vital Signs: Temp Pulse Resp BP Pulse Ox 96.8 F L 95 20 177/82 H 92 03/27/19 08:00 03/27/19 09:00 03/27/19 09:00 03/27/19 08:00 03/27/19 09:00 Intake & Output 03/26/19 03/27/19 03/28/19 06:59 06:59 06:59 Intake Total 2894 1776 14 Output Total 2095 720 30 Balance 799 1056 -16 Weight 111.5 kg 113.5 kg General appearance: PRESENT: no acute distress, well-developed, well-nourished, other - intubated and sedated Head exam: PRESENT: atraumatic, normocephalic Respiratory exam: PRESENT: unlabored, other - coarse breathsounds throughout Cardiovascular exam: PRESENT: RRR GI/Abdominal exam: PRESENT: soft, other - non-tender, non-distended Gentrourinary exam: PRESENT: indwelling catheter Extremities exam: PRESENT: other - 2+ edema Results Laboratory Results: 03/27/19 03:42 03/27/19 03:42 03/26/19 03/27/19 03/27/19 10:30 03:42 03:42 WBC 9.6 RBC 3.52 L Hgb 10.8 L Hct 32.7 L MCV 93 MCH 30.6 MCHC 33.0 RDW 15.2 H Plt Count 158 Seg Neutrophils % 88.9 H Carbonic Acid 1.48 H HCO3/H2CO3 Ratio 17:1 ABG pH 7.33 L ABG pCO2 49.1 H ABG pO2 49.5 L ABG HCO3 25.5 H ABG O2 Saturation 82.1 L ABG Base Excess -0.8 FiO2 30% Sodium 146.9 H Potassium 4.0 Chloride 110 H Carbon Dioxide 29 Anion Gap 8 BUN 69 H Creatinine 2.17 H Est GFR ( Amer) 37 L Glucose 237 H Calcium 8.1 L Magnesium 2.3 03/27/19 04:36 WBC RBC Hgb Hct MCV MCH MCHC RDW Plt Count Seg Neutrophils % Carbonic Acid 1.57 H HCO3/H2CO3 Ratio 18:1 ABG pH 7.36 ABG pCO2 52.0 H ABG pO2 57.2 L ABG HCO3 28.4 H ABG O2 Saturation 88.1 L ABG Base Excess 2.6 FiO2 35% Sodium Potassium Chloride Carbon Dioxide Anion Gap BUN Creatinine Est GFR ( Amer) Glucose Calcium Magnesium 03/20/19 03/20/19 03/20/19 02:40 02:40 07:06 Creatine Kinase 109 CK-MB (CK-2) 2.86 Cancelled Troponin I 0.040 Cancelled NT-Pro-B Natriuret Pep 4540 H 03/20/19 03/20/19 03/20/19 07:54 12:30 17:52 Creatine Kinase CK-MB (CK-2) 10.90 H Troponin I 0.648 1.770 3.420 NT-Pro-B Natriuret Pep 03/21/19 03/21/19 03/21/19 06:10 06:10 11:57 Creatine Kinase 353 H 258 H CK-MB (CK-2) 17.60 H Troponin I 5.350 NT-Pro-B Natriuret Pep 03/21/19 03/21/19 03/21/19 11:57 16:08 16:08 Creatine Kinase 232 H CK-MB (CK-2) 13.90 H 11.60 H Troponin I 4.320 4.530 NT-Pro-B Natriuret Pep 03/22/19 03/24/19 05:31 03:49 Creatine Kinase CK-MB (CK-2) Troponin I 3.240 3.270 NT-Pro-B Natriuret Pep Impressions: Vascular Ultrasound 03/21/19 07:41 IMPRESSION: NO DOPPLER EVIDENCE OF HEMODYNAMICALLY SIGNIFICANT RENAL ARTERY STENOSIS. Chest CT 03/21/19 13:00 IMPRESSION: 1. Findings most compatible CHF with moderate bilateral pleural effusions and bibasilar consolidation, likely atelectasis. Interlobular and septal thickening and patchy ground-glass attenuation, likely edema although superimposed infection is not entirely excluded. 2. Cardiomegaly. Coronary atherosclerosis. 3. Endotracheal tube within the midthoracic trachea. Renal Ultrasound 03/22/19 00:00 IMPRESSION: No hydronephrosis Mild increased cortical echogenicity from medical renal disease Head CT 03/24/19 00:00 IMPRESSION: NO ACUTE INTRACRANIAL FINDINGS. EVIDENCE OF ACUTE STROKE: NO. KUB X-Ray 03/25/19 00:00 IMPRESSION: Nasogastric tube tip and side port in the stomach. Persistent left retrocardiac consolidation worrisome for pneumonia Chest X-Ray 03/27/19 06:00 IMPRESSION: Unchanged radiographic appearance of the chest as detailed above. Assessment & Plan - Diagnosis (1) Acute respiratory failure Qualifiers: Respiratory failure complication: unspecified whether with hypoxia or hypercapnia Qualified Code(s): J96.00 - Acute respiratory failure, unspecified whether with hypoxia or hypercapnia Is this a current diagnosis for this admission?: Yes (2) Pseudomonas pneumonia Qualifiers: Lung location: unspecified part of lung Is this a current diagnosis for this admission?: Yes (3) COPD with exacerbation Is this a current diagnosis for this admission?: Yes (4) Atrial flutter Is this a current diagnosis for this admission?: Yes (5) Acute kidney injury Is this a current diagnosis for this admission?: Yes (6) CKD (chronic kidney disease) stage 3, GFR 30-59 ml/min Is this a current diagnosis for this admission?: Yes (7) NSTEMI (non-ST elevated myocardial infarction) Is this a current diagnosis for this admission?: Yes (8) Diabetes Qualifiers: Diabetes mellitus type: type 2 Diabetes mellitus mcfp insulin use: unspecified mcfp insulin use status Chronic kidney disease stage: stage 3 (moderate) Is this a current diagnosis for this admission?: Yes (9) Pleural effusion Is this a current diagnosis for this admission?: Yes - Plan Summary Plan Summary: Assessment: Critically ill 68 yo man with acute respiratory failure, pseudomonas PNA, AECOPD, aflutter, HTN, NSTEMI, VIDYA, CKD, DM Plan: 1. Respiratory: acute respiratory failure. Vent day 7. Patient may need trach 2. Pulmonary: Pseudomonas PNA. Continue cefepime. AECOPD,possible ILD. Continue steroids and breathing treatments. CT of chest from 03/21 shows moderate bilate ral pleural effusion. Will start lasix. 3. CV: atrial flutter, rate controlled. NSTEMI due to demand ischemia. Amiodarone drip, lopressor, lisinopril. HTN. SBP in the 200s today. Will start norvasc. Will also diurese with lasix 4. Renal:VIDYA,CKD stage 3. Cr has increased to 2.17. Pt is very volume ov erloaded. Will start lasix 40 mg IV TID. 5. ID: pseudomonas PNA. Fever. Continue cefepime. 6. Endocrine: DM. lantus, SSI 7. Heme: on eliquis for afib 8. Nutrition: tolerating tube feeds 9. Disposition: pt will probably need trach and PEG if not extubated by the end of this week. He will probably need an LTAC. Case management has been consulted for LTAC placement. Critical care time= 50 min, excluding procedures
[2019-03-27] MEDS: FUROSEMIDE INJ/PF 40 MG/4 ML SDV IV SCH ×3 (10:21→22:44)
--- NOTE | 2019-03-27 19:46 | PDOC PROGRESS REPORT ---
Subjective Progress Note for:: 03/27/19 Reason For Visit: ICU. He remains intubated and sedated. He has failed extubation. Respiratory parameters of rather worsening slowly. X-ray shows he has got bilateral pleural effusions with signs of fluid overload. Currently on antibiotics and IV Lasix. He still making good amounts of urine. Discussions were done with the treating nurse Crystal as well as syrup maker. Labs and medications were reviewed. Physical Exam Vital Signs: Temp Pulse Resp BP Pulse Ox 99.1 F 80 12 123/54 L 90 L 03/27/19 16:00 03/27/19 18:00 03/27/19 18:15 03/27/19 18:15 03/27/19 18:15 Intake & Output 03/26/19 03/27/19 03/28/19 06:59 06:59 06:59 Intake Total 2894 1826 357 Output Total 2095 720 1445 Balance 799 1106 -1088 Weight 111.5 kg 113.5 kg Exam: Patient remains intubated and sedated. Respiratory exam: PRESENT: clear to auscultation zachariah, decreased breath sounds. ABSENT: crackles Cardiovascular exam: PRESENT: +S1, +S2 GI/Abdominal exam: PRESENT: normal bowel sounds, soft. ABSENT: organomegaly, tenderness Extremities exam: ABSENT: pedal edema Skin exam: ABSENT: erythema, mottled, rash Results Laboratory Results: 03/27/19 03:42 03/27/19 03:42 03/27/19 03/27/19 03/27/19 03:42 03:42 04:36 WBC 9.6 RBC 3.52 L Hgb 10.8 L Hct 32.7 L MCV 93 MCH 30.6 MCHC 33.0 RDW 15.2 H Plt Count 158 Seg Neutrophils % 88.9 H Carbonic Acid 1.57 H HCO3/H2CO3 Ratio 18:1 ABG pH 7.36 ABG pCO2 52.0 H ABG pO2 57.2 L ABG HCO3 28.4 H ABG O2 Saturation 88.1 L ABG Base Excess 2.6 FiO2 35% Sodium 146.9 H Potassium 4.0 Chloride 110 H Carbon Dioxide 29 Anion Gap 8 BUN 69 H Creatinine 2.17 H Est GFR ( Amer) 37 L Glucose 237 H Calcium 8.1 L Magnesium 2.3 03/20/19 03/20/19 03/20/19 02:40 02:40 07:06 Creatine Kinase 109 CK-MB (CK-2) 2.86 Cancelled Troponin I 0.040 Cancelled NT-Pro-B Natriuret Pep 4540 H 03/20/19 03/20/19 03/20/19 07:54 12:30 17:52 Creatine Kinase CK-MB (CK-2) 10.90 H Troponin I 0.648 1.770 3.420 NT-Pro-B Natriuret Pep 03/21/19 03/21/19 03/21/19 06:10 06:10 11:57 Creatine Kinase 353 H 258 H CK-MB (CK-2) 17.60 H Troponin I 5.350 NT-Pro-B Natriuret Pep 03/21/19 03/21/19 03/21/19 11:57 16:08 16:08 Creatine Kinase 232 H CK-MB (CK-2) 13.90 H 11.60 H Troponin I 4.320 4.530 NT-Pro-B Natriuret Pep 03/22/19 03/24/19 05:31 03:49 Creatine Kinase CK-MB (CK-2) Troponin I 3.240 3.270 NT-Pro-B Natriuret Pep Impressions: Vascular Ultrasound 03/21/19 07:41 IMPRESSION: NO DOPPLER EVIDENCE OF HEMODYNAMICALLY SIGNIFICANT RENAL ARTERY MERRITT NOSIS. Chest CT 03/21/19 13:00 IMPRESSION: 1. Findings most compatible CHF with moderate bilateral pleural effusions and bibasilar consolidation, likely atelectasis. Interlobular and septal thickening and patchy ground-glass attenuation, likely edema although superimposed infection is not entirely excluded. 2. Cardiomegaly. Coronary atherosclerosis. 3. Endotracheal tube within the midthoracic trachea. Renal Ultrasound 03/22/19 00:00 IMPRESSION: No hydronephrosis Mild increased cortical echogenicity from medical renal disease Head CT 03/24/19 00:00 IMPRESSION: NO ACUTE INTRACRANIAL FINDINGS. EVIDENCE OF ACUTE STROKE: NO. KUB X-Ray 03/25/19 00:00 IMPRESSION: Nasogastric tube tip and side port in the stomach. Persistent left retrocardiac consolidation worrisome for pneumonia Chest X-Ray 03/27/19 06:00 IMPRESSION: Unchanged radiographic appearance of the chest as detailed above. Assessment & Plan - Diagnosis (1) Acute hypoxemic respiratory failure Is this a current diagnosis for this admission?: Yes Plan: Remains intubated and sedated. Management as per syrup maker. Failed extubation earlier. Has signs of central fluid overload.Agree with continuation of IV Lasix. (2) Acute kidney injury Is this a current diagnosis for this admission?: Yes Plan: Creatinine stable at 2.1. Nonoliguric. Good urine output. Continue on present lines of management but I am going to DC his lisinopril. (3) COPD with exacerbation Is this a current diagnosis for this admission?: Yes Plan: As per syrup maker. (4) Sepsis Plan: Patient being treated for Pseudomonas pneumonia/bronchitis. Management as per syrup maker. (5) Hyperkalemia Plan: Now resolved and potassium is rather on the low normal side. Monitor. Would advocate replacements. (6) Metabolic acidosis Plan: Resolved.
--- NOTE | 2019-03-27 21:54 | Progress Note ---
Provider Note Provider Note: CARDIOLOGY PROGRESS NOTE by Dr. Simran Sanchez on 03/27/2019. SUBJECTIVE: The patient is intubated and sedated. There is no recurrence of atrial flutter or any other atrial arrhythmia. There is no ventricular ectopic activity or ventricular tachycardias seen. The patient's renal function is worsened today. He has bilateral pleural effusions. The patient is intubated and sedated. His renal urine output seems to be acceptable. PHYSICAL EXAMINATION: The patient is mildly obese. He is intubated and sedated. Selected Entries 03/27/19 16:00 Temperature 99.1 F Temperature Axillary Source Pulse Rate 76 Respiratory 11 L Rate Blood Pressure 133/65 H [Left Upper Arm ] Blood Pressure 87 Mean [Left Upper Arm] Blood Pressure Supine Position [Left Upper Arm] O2 Sat by Pulse 90 L Oximetry Oxygen Delivery Mechanical Method ( Ventilator includes room FiO2 of 35%. air) HEAD: Head is atraumatic and normocephalic. EYES: Pupils are equal round regular reactive to in no acute dietress. light accommodation. Extraocular movements are normal, there is no conjunctival pallor, and no scleral icterus. ENT is negative SKIN: There is no petechia or ecchymosis. There is no rashes or lesions. NECK: Supple. There is no JVD. Carotids are equal there is no bruit. There is no lymphadenopathy. There is no goiter. Trachea central LUNGS: There is diminished air entry and prolonged expiration. Clear to auscultation bilaterally, no wheezes, or rales. There is scattered bilateral rhonchi. On percussion there is hyperresonance, or lower lung suarez except the bases where there is dullness. The area of dullness breath sounds are absent.. There is no chest wall tenderness. Heart: S1-S2 is heard. There is no S3 gallop there is no S4 gallop is systolic murmur left sternal border and the apex. ABDOMEN: Is soft there is no hepatospleno megaly bowel sounds are normal. EXTREMITIES: Femorals are diminished. There is no femoral bruits. Leg pulses are diminished. There is trace to mild pedal edema. INTEGRITY ANALYST: And psychiatric: Not examined due to patient intubated and sedated. Labs- All tests 24 hr 03/26/19 03/27/19 03/27/19 23:27 03:42 03:42 WBC 9.6 RBC 3.52 L Hgb 10.8 L Hct 32.7 L MCV 93 MCH 30.6 MCHC 33.0 RDW 15.2 H Plt Count 158 Lymph % (Auto) 6.0 L Pepin % (Auto) 4.8 Eos % (Auto) 0.0 Baso % (Auto) 0.3 Absolute Neuts (auto) 8.5 H Absolute Lymphs (auto) 0.6 Absolute Monos (auto) 0.5 Absolute Eos (auto) 0.0 Absolute Basos (auto) 0.0 Seg Neutrophils % 88.9 H Carbonic Acid HCO3/H2CO3 Ratio ABG pH ABG pCO2 ABG pO2 ABG HCO3 ABG Total CO2 ABG O2 Saturation ABG Base Excess FiO2 Sodium 146.9 H Potassium 4.0 Chloride 110 H Carbon Dioxide 29 Anion Gap 8 BUN 69 H Creatinine 2.17 H Est GFR ( Amer) 37 L Est GFR (MDRD) Non-Af 30 L Glucose 237 H POC Glucose 236 H Calcium 8.1 L Magnesium 2.3 03/27/19 03/27/19 03/27/19 04:36 05:15 10:00 WBC RBC Hgb Hct MCV MCH MCHC RDW Plt Count Lymph % (Auto) Pepin % (Auto) Eos % (Auto) Baso % (Auto) Absolute Neuts (auto) Absolute Lymphs (auto) Absolute Monos (auto) Absolute Eos (auto) Absolute Basos (auto) Seg Neutrophils % Carbonic Acid 1.57 H HCO3/H2CO3 Ratio 18:1 ABG pH 7.36 ABG pCO2 52.0 H ABG pO2 57.2 L ABG HCO3 28.4 H ABG Total CO2 30.0 H ABG O2 Saturation 88.1 L ABG Base Excess 2.6 FiO2 35% Sodium Potassium Chloride Carbon Dioxide Anion Gap BUN Creatinine Est GFR ( Amer) Est GFR (MDRD) Non-Af Glucose POC Glucose 269 H 238 H Calcium Magnesium 03/27/19 03/27/19 12:28 17:29 WBC RBC Hgb Hct MCV MCH MCHC RDW Plt Count Lymph % (Auto) Pepin % (Auto) Eos % (Auto) Baso % (Auto) Absolute Neuts (auto) Absolute Lymphs (auto) Absolute Monos (auto) Absolute Eos (auto) Absolute Basos (auto) Seg Neutrophils % Carbonic Acid HCO3/H2CO3 Ratio ABG pH ABG pCO2 ABG pO2 ABG HCO3 ABG Total CO2 ABG O2 Saturation ABG Base Excess FiO2 Sodium Potassium Chloride Carbon Dioxide Anion Gap BUN Creatinine Est GFR ( Amer) Est GFR (MDRD) Non-Af Glucose POC Glucose 267 H 213 H Calcium Magnesium Chest X-Ray 03/20/19 00:00 IMPRESSION: Worsening congestive failure with interstitial pulmonary edema. Chest X-Ray 03/20/19 00:00 IMPRESSION: Endotracheal tube is in place. Moderate pulmonary edema. Findings correlate from prior study. Chest X-Ray 03/20/19 02:37 IMPRESSION: Mild increased reticular interstitial changes may all be chronic in nature but cannot exclude minimal edema or atypical pneumonia. Correlation with an old exam or short-term follow-up will be useful. Vascular Ultrasound 03/21/19 07:41 IMPRESSION: NO DOPPLER EVIDENCE OF HEMODYNAMICALLY SIGNIFICANT RENAL ARTERY STENOSIS. Chest CT 03/21/19 13:00 IMPRESSION: 1. Findings most compatible CHF with moderate bilateral pleural effusions and bibasilar consolidation, likely atelectasis. Interlobular and septal thickening and patchy ground-glass attenuation, likely edema although superimposed infection is not entirely excluded. 2. Cardiomegaly. Coronary atherosclerosis. 3. Endotracheal tube within the midthoracic trachea. Chest X-Ray 03/22/19 00:00 IMPRESSION: Endotracheal tube, nasogastric tube in good positioning of the 2nd film. Unchanged bilateral pleural effusions with bibasilar airspace disease Renal Ultrasound 03/22/19 00:00 IMPRESSION: No hydronephrosis Mild increased cortical echogenicity from medical renal disease KUB X-Ray 03/23/19 15:17 IMPRESSION: THE TIP OF THE NASOGASTRIC TUBE IN THE STOMACH. NO RADIOGRAPHIC EV IDENCE FOR ACUTE ABDOMINAL DISEASE. Head CT 03/24/19 00:00 IMPRESSION: NO ACUTE INTRACRANIAL FINDINGS. EVIDENCE OF ACUTE STROKE: NO. Chest X-Ray 03/25/19 00:00 IMPRESSION: Moderate bilateral pleural effusions, left retrocardiac consolidation Endotracheal tube tip 5 cm above the ness KUB X-Ray 03/25/19 00:00 IMPRESSION: Nasogastric tube tip and side port in the stomach. Persistent left retrocardiac consolidation worrisome for pneumonia Chest X-Ray 03/26/19 00:00 IMPRESSION: Bilateral pleural effusions have increased. Airspace disease left lower lobe, consolidation versus atelectasis. Chest X-Ray 03/27/19 06:00 IMPRESSION: Unchanged radiographic appearance of the chest as detailed above. MPRESSION/RECOMMENDATION: 1.Paroxysmal atrial flutter. At present patient sinus rhythm with short NM interval. The patient's amiodarone. We will start the patient on metoprolol 50 mg p.o. every 4 hours. Continue Eliquis. 2. Acute on probably chronic respiratory failure: Continue ventilators, continue antibiotics. 3. Volume overload CHF: Most likely secondary to the patient's renal dysfunction. Continue IV diuretics.. 4. COPD: Continue ventilator support. Continue bronchodilators and antibiotics. 5. Elevated troponin I: Non-ST elevation HI versus secondary to supply demand mismatch. Agree with stopping the patient's IV heparin since her troponin is trending down. Later would recommend that the patient have a IV Lexiscan Cardiolite stress test.. Will recheck troponin I and EKG in the a.m. 6. Acute on chronic kidney disease. The patient's current baseline CKD stage III. At present CKD improved to stage III. Avoid nephrotoxic drugs. 7. Retrocardiac left lower lobe pneumonia: Continue antibiotics. 8. History of hypertension: At present patient blood pressure low requiring pressors. 9. Diabetes mellitus: Continue insulin as per blood sugar checks. 10. Possible interstitial lung disease.: The CT scan is reported as findings which did not support ILD. But I feel that there is some findings that could be ILD. 11. Episodic heart failure secondary to hypertensive blood pressure spikes. Note that the patient's LV ejection fraction is normal. 12. Peripheral vascular disease as per history Medications reviewed. Management plan discussed with the attending physician on the case and the wire mill operator. Medical decision making is moderate to high complexity. 40 minutes spent on this patient more than 50% time spent in direct patient care. Will follow.
[2019-03-28] MEDS: ALBUTEROL SULFATE 0.042% NEB (1.25 MG/3 ML) AMPUL NEB SCH ×6 (00:50→20:34)
[2019-03-28] MEDS: PROPOFOL 1,000 MG/100 ML INFUS..BTL IV PRN ×3 (01:13→17:31)
[2019-03-28 03:57] LABS: ANION GAP 7 (5-19); BLOOD UREA NITROGEN 81 mg/dL (7-20); CALCIUM 8.5 mg/dL (8.4-10.2); CARBON DIOXIDE 31 mmol/L (22-30); CHLORIDE 110 mmol/L (98-107); GLUCOSE 180 mg/dL (75-110); POTASSIUM 3.2 mmol/L (3.6-5.0)
[2019-03-28 04:00] LABS: ABSOLUTE LYMPHOCYTES (AUTO) 0.5 10^3/uL (0.5-4.7); ABSOLUTE MONOCYTES (AUTO) 0.9 10^3/uL (0.1-1.4); ABSOLUTE NEUT (AUTO) 13.6 10^3/uL (1.7-8.2); BASOPHILS % (AUTO) 0.2 % (0-2); HEMATOCRIT 32.3 % (37.9-51.0); HEMOGLOBIN 10.7 g/dL (13.5-17.0); LYMPHOCYTES % (AUTO) 3.6 % (13-45); MEAN CORPUSCULAR HEMOGLOBIN 30.3 pg (27.0-33.4); MEAN CORPUSCULAR HGB CONC 33.2 g/dL (32.0-36.0); MEAN CORPUSCULAR VOLUME 91 fl (80-97); MONOCYTES % (AUTO) 5.7 % (3-13); PLATELET COUNT 187 10^3/uL (150-450); RED BLOOD COUNT 3.54 10^6/uL (4.35-5.55); RED CELL DISTRIBUTION WIDTH 14.6 % (11.5-14.0); SEGMENTED NEUTROPHILS % (AUTO) 90.5 % (42-78); TOTAL CELLS COUNTED % (AUTO) 100 %; WHITE BLOOD COUNT 15.1 10^3/uL (4.0-10.5)
[2019-03-28 04:30] LABS: ABSOLUTE LYMPHOCYTES# (MANUAL) 0.6 10^3/uL (0.5-4.7); ABSOLUTE MONOCYTES # (MANUAL) 1.2 10^3/uL (0.1-1.4); ANISOCYTOSIS SLIGHT; BAND NEUTROPHILS % (MANUAL) 4 % (3-5); BASOPHILS % (MANUAL) 0 % (0-2); EOSINOPHILS % (MANUAL) 0 % (0-6); LYMPHOCYTES % (MANUAL) 4 % (13-45); MONOCYTES % (MANUAL) 8 % (3-13); PLATELET COMMENT ADEQUATE; SEGMENTED NEUTROPHILS % (MAN) 84 % (42-78); TOTAL CELLS COUNTED 100
[2019-03-28] MEDS: METHYLPREDNISOLONE INJ 125 MG/2 ML SDV IV SCH ×4 (05:51→23:15)
[2019-03-28] MEDS: INSULIN LISPRO 100 UNIT/ML 3 ML VIAL SUBCUT SCH ×4 (05:51→23:15)
[2019-03-28] MEDS: FUROSEMIDE INJ/PF 40 MG/4 ML SDV IV SCH ×3 (05:51→22:19)
[2019-03-28] MEDS ORDERED: INFLUENZA QUAD (6MOS+) 2019-20 VAC 0.5 ML SYR IM ONE (08:00)
[2019-03-28] MEDS ORDERED: VANCOMYCIN HCL 0 MG in DEXTROSE 5%-WATER 250 ML IV NR (08:15)
--- NOTE | 2019-03-28 08:34 | RADIOLOGY REPORT (SQ) ---
EXAM DESCRIPTION: CHEST SINGLE VIEW COMPLETED DATE/TIME: 03/28/2019 8:23 am REASON FOR STUDY: ETT placement COMPARISON: 03/27/2019 NUMBER OF VIEWS: One view. TECHNIQUE: Single frontal radiographic image of the chest acquired. LIMITATIONS: None. FINDINGS: LUNGS AND PLEURA: Stable appearance. MEDIASTINUM AND HILAR STRUCTURES: Stable heart size and mediastinal structures. HEART AND VASCULAR STRUCTURES: Stable appearance. SUPPORT DEVICES: Endotracheal tube has been withdrawn and now lies 8.5 cm above the ness. NG tube remains in place. BONES: No acute findings. OTHER: No other significant finding. IMPRESSION: Endotracheal tube has been repositioned as described. No other interval change. TECHNICAL DOCUMENTATION: JOB ID: [id number] [employer]- All Rights Reserved Reading location - IP/workstation name: [email or web address]
[2019-03-28] MEDS: HYDROMORPHONE HCL INJ/PF 2 MG/ML AMPULE IV PRN ×2 (08:55→18:34)
--- NOTE | 2019-03-28 09:25 | PDOC PROGRESS REPORT ---
Subjective Progress Note for:: 03/28/19 Subjective:: Pt remains intubated and sedated. More hypoxic this am. Reason For Visit: ACUTE HYPOXIC RESPIRATORY FAILURE,ACUTE KIDNEY Physical Exam Vital Signs: Temp Pulse Resp BP Pulse Ox 98.0 F 76 16 146/97 H 94 03/28/19 08:00 03/28/19 08:03 03/28/19 08:03 03/28/19 08:00 03/28/19 08:03 Intake & Output 03/27/19 03/28/19 03/29/19 06:59 06:59 06:59 Intake Total 1826 813 41 Output Total 720 3195 490 Balance 3466 -7480 -633 Weight 113.5 kg 111.7 kg General appearance: PRESENT: no acute distress, well-developed, well-nourished, other - intubated and sedated Head exam: PRESENT: atraumatic, normocephalic Respiratory exam: PRESENT: decreased breath sounds, unlabored Cardiovascular exam: PRESENT: RRR GI/Abdominal exam: PRESENT: soft, other - non-tender, non-distended Gentrourinary exam: PRESENT: indwelling catheter Extremities exam: PRESENT: other - 1+ edema Results Laboratory Results: 03/28/19 03:32 03/28/19 03:32 03/28/19 03/28/19 03:32 03:32 WBC 15.1 H RBC 3.54 L Hgb 10.7 L Hct 32.3 L MCV 91 MCH 30.3 MCHC 33.2 RDW 14.6 H Plt Count 187 Seg Neutrophils % 90.5 H Sodium 147.9 H Potassium 3.2 L Chloride 110 H Carbon Dioxide 31 H Anion Gap 7 BUN 81 H Creatinine 2.20 H Est GFR ( Amer) 36 L Glucose 180 H Calcium 8.5 Magnesium 2.2 03/20/19 03/20/19 03/20/19 02:40 02:40 07:06 Creatine Kinase 109 CK-MB (CK-2) 2.86 Cancelled Troponin I 0.040 Cancelled NT-Pro-B Natriuret Pep 4540 H 03/20/19 03/20/19 03/20/19 07:54 12:30 17:52 Creatine Kinase CK-MB (CK-2) 10.90 H Troponin I 0.648 1.770 3.420 NT-Pro-B Natriuret Pep 03/21/19 03/21/19 03/21/19 06:10 06:10 11:57 Creatine Kinase 353 H 258 H CK-MB (CK-2) 17.60 H Troponin I 5.350 NT-Pro-B Natriuret Pep 03/21/19 03/21/19 03/21/19 11:57 16:08 16:08 Creatine Kinase 232 H CK-MB (CK-2) 13.90 H 11.60 H Troponin I 4.320 4.530 NT-Pro-B Natriuret Pep 03/22/19 03/24/19 05:31 03:49 Creatine Kinase CK-MB (CK-2) Troponin I 3.240 3.270 NT-Pro-B Natriuret Pep Impressions: Vascular Ultrasound 03/21/19 07:41 IMPRESSION: NO DOPPLER EVIDENCE OF HEMODYNAMICALLY SIGNIFICANT RENAL ARTERY STENOSIS. Chest CT 03/21/19 13:00 IMPRESSION: 1. Findings most compatible CHF with moderate bilateral pleural effusions and bibasilar consolidation, likely atelectasis. Interlobular and septal thickening and patchy ground-glass attenuation, likely edema although superimposed infection is not entirely excluded. 2. Cardiomegaly. Coronary atherosclerosis. 3. Endotracheal tube within the midthoracic trachea. Renal Ultrasound 03/22/19 00:00 IMPRESSION: No hydronephrosis Mild increased cortical echogenicity from medical renal disease Head CT 03/24/19 00:00 IMPRESSION: NO ACUTE INTRACRANIAL FINDINGS. EVIDENCE OF ACUTE STROKE: NO. KUB X-Ray 03/25/19 00:00 IMPRESSION: Nasogastric tube tip and side port in the stomach. Persistent left retrocardiac consolidation worrisome for pneumonia Chest X-Ray 03/28/19 07:56 IMPRESSION: Endotracheal tube has been repositioned as described. No other interval change. Assessment & Plan - Diagnosis (1) Acute respiratory failure Qualifiers: Respiratory failure complication: unspecified whether with hypoxia or hypercapnia Qualified Code(s): J96.00 - Acute respiratory failure, unspecified whether with hypoxia or hypercapnia Is this a current diagnosis for this admission?: Yes (2) Pseudomonas pneumonia Qualifiers: Lung location: unspecified part of lung Is this a current diagnosis for this admission?: Yes (3) COPD with exacerbation Is this a current diagnosis for this admission?: Yes (4) Atrial flutter Is this a current diagnosis for this admission?: Yes (5) Acute kidney injury Is this a current diagnosis for this admission?: Yes (6) CKD (chronic kidney disease) stage 3, GFR 30-59 ml/min Is this a current diagnosis for this admission?: Yes (7) NSTEMI (non-ST elevated myocardial infarction) Is this a current diagnosis for this admission?: Yes (8) Diabetes Qualifiers: Diabetes mellitus type: type 2 Diabetes mellitus terminal clerk insulin use: unspecified fpc insulin use status Chronic kidney disease stage: stage 3 (moderate) Is this a current diagnosis for this admission?: Yes (9) Pleural effusion Is this a current diagnosis for this admission?: Yes - Plan Summary Plan Summary: Assessment: Critically ill 68 yo man with acute respiratory failure, pseudomonas PNA, AECOPD, aflutter, HTN, NSTEMI, VIDYA, CKD, DM, pleural effusions Plan: 1. Respiratory: acute respiratory failure. Vent day 8. CXR shows ET tube too high, tube repositioned. Pt may need trach 2. Pulmonary: Pseudomonas PNA. Continue cefepime. Will add vanc and levaquin since WBC has increased. Will repeat cultures. Will repeat CT of chest today. AECOPD,possible ILD. Continue steroids and breathing treatments. Bilateral pleural effusions, Continue lasix 3. CV: atrial flutter, rate controlled. NSTEMI due to demand ischemia. Amiodarone drip, lopressor. Lisinopril stopped by the industrial retrofit designer. SBP much improved today with SBP in the 100s. Continue lasix. 4. Renal:VIDYA,CKD stage 3. Cr is stable at 2.20. Continue lasix TID. Good UOP 5. ID: pseudomonas PNA. Worsening leukocytosis. Will add vanc and levaquin. Will repeat cultures. 6. Endocrine: DM. lantus, SSI 7. Heme: will d/c eliquis and hold anticoagulation at this time for the possible need for a thoracentesis. 8. F/E/N: tolerating tube feeds. Hypernatremia, will start free water flushes. Hypokalemia, will replace potassium 9. Disposition: pt will probably need trach and PEG if not extubated by the end of this week. He will probably need an LTAC. Case management has been consulted for LTAC placement. Critical care time= 50 min, excluding procedures
[2019-03-28] MEDS: FAMOTIDINE INJ/PF 20 MG/2 ML SDV IV SCH (09:26)
[2019-03-28] MEDS: GABAPENTIN 300 MG CAPSULE NG SCH ×2 (09:27→22:18)
[2019-03-28] MEDS: LEVOFLOXACIN 750 MG/D5W RTU 750 MG/150 ML RTUPB IV SCH (09:28)
[2019-03-28] MEDS ORDERED: POTASSIUM CHLORIDE 20 MEQ PACKET NG ONE (09:30)
--- NOTE | 2019-03-28 09:40 | RADIOLOGY REPORT (SQ) ---
EXAM DESCRIPTION: CHEST SINGLE VIEW COMPLETED DATE/TIME: 03/28/2019 9:27 am REASON FOR STUDY: ET tube reverification COMPARISON: Earlier the same day. NUMBER OF VIEWS: One view. TECHNIQUE: Single frontal radiographic image of the chest acquired. LIMITATIONS: None. FINDINGS: LUNGS AND PLEURA: Stable appearance. MEDIASTINUM AND HILAR STRUCTURES: Stable heart size and mediastinal structures. HEART AND VASCULAR STRUCTURES: Stable appearance. SUPPORT DEVICES: Endotracheal tube is been advanced and now lies approximately 5.2 cm above the nereida a. NG tube is unchanged. BONES: No acute findings. OTHER: No other significant finding. IMPRESSION: Endotracheal tube is been advanced as described. It now lies 5.2 cm above the ness. No other significant change. TECHNICAL DOCUMENTATION: JOB ID: [id number] [employer]- All Rights Reserved Reading location - IP/workstation name: [email or web address]
[2019-03-28 09:57] LABS: ARTERIAL BLOOD BASE EXCESS 7.5 mmol/L; ARTERIAL BLOOD H2CO3 1.48 mmol/L (1.05-1.35); ARTERIAL BLOOD HCO3 32.7 mmol/L (20-24); ARTERIAL BLOOD O2 SATURATION 87.6 % (94-98); ARTERIAL BLOOD PCO2 49.3 mmHg (35-45); ARTERIAL BLOOD PH 7.44 (7.35-7.45); ARTERIAL BLOOD PO2 52.1 mmHg (80-100); ARTERIAL BLOOD TOTAL CO2 34.2 mmol/L (23-27)
[2019-03-28 09:58] LABS: ARTERIAL BLOOD FIO2 70%
[2019-03-28] MEDS: FENTANYL CITRATE/PF 600 MCG/60 ML BAG IV PRN ×2 (10:01→20:50)
[2019-03-28] MEDS: CEFEPIME 2 GM/D5W RTU 2 GM/50 ML RTUPB IV SCH ×2 (10:05→22:18)
--- NOTE | 2019-03-28 10:30 | RADIOLOGY REPORT (SQ) ---
EXAM DESCRIPTION: CT CHEST WITHOUT COMPLETED DATE/TIME: 03/28/2019 10:17 am REASON FOR STUDY: PNA, pleural effusions COMPARISON: Chest x-ray done earlier the same day, CT chest without contrast dated 03/21/2019 TECHNIQUE: CT scan performed of the chest without intravenous contrast. Images reviewed with lung, soft tissue and bone windows. Reconstructed coronal and sagittal MPR images reviewed. All images st ored on PACS. All CT scanners at this facility use dose modulation, iterative reconstruction, and/or weight based d osing when appropriate to reduce radiation dose to as low as reasonably achievable (ALARA). [facility]: Dose Right [facility]: CareDose [facility]: Dose Right [facility]: Teradose 4D [facility]: Visualead RADIATION DOSE: mGy. LIMITATIONS: No technical limitations. FINDINGS: LUNGS AND PLEURA: Persistent moderate to large bilateral pleural effusions with dense cons olidation in both lung bases. Endotracheal tube and NG tube are in place. HILAR AND MEDIASTINAL STRUCTURES: No identified masses or abnormal nodes. No obvious aneurysm. HEART AND VASCULAR STRUCTURES: There is coronary artery calcification. No pericardial effusion. UPPER ABDOMEN: No significant findings. Limited exam. THYROID AND OTHER SOFT TISSUES: No masses. No adenopathy. BONES: No significant finding. HARDWARE: None in the chest. OTHER: No other significant findings. IMPRESSION: Persistent moderate to large bilateral pleural effusions with dense consolidation in the lung bases consistent with pneumonia. TECHNICAL DOCUMENTATION: JOB ID: [id number] Quality ID # [id number]: Final reports with documentation of one or more dose reduction techniques (e.g., Au tomated exposure control, adjustment of the mA and/or kV according to patient size, use of iterative reconstruction technique) 2010 [employer]- All Rights Reserved Reading location - IP/workstation name: [email or web address]
[2019-03-28] MEDS ORDERED: INSULIN GLARGINE,HUM.REC.ANLOG 1,000 UNIT/10 ML VIAL (PYX) SUBCUT ONE (10:46)
[2019-03-28] MEDS: INSULIN GLARGINE,HUM.REC.ANLOG 1,000 UNIT/10 ML VIAL SUBCUT SCH ×2 (10:52→17:44)
[2019-03-28] MEDS: METOPROLOL TARTRATE 50 MG TABLET NG SCH ×2 (12:03→22:19)
[2019-03-28] MEDS: HYDRALAZINE HCL INJ/PF 20 MG/1 ML SDV IV PRN ×2 (12:03→18:27)
[2019-03-28] MEDS ORDERED: METOPROLOL TARTRATE PF/INJ 5 MG/5 ML SDV IV ONE (13:30)
[2019-03-28] MEDS: AMLODIPINE BESYLATE 10 MG TABLET PO SCH (13:50)
[2019-03-28] MEDS: VANCOMYCIN HCL 1,500 MG in DEXTROSE 5%-WATER 250 ML IV SCH (13:55)
--- NOTE | 2019-03-28 22:37 | Progress Note ---
Provider Note Provider Note: CARDIOLOGY PROGRESS NOTE by Dr. Simran Sanchez on 03/28/2019. SUBJECTIVE: The patient continues to be intubated and sedated. In spite of reasonable diuresis, the CT scan shows bibasilar consolidation with pneumonia and effusions. Most likely this is parapneumonic. His blood pressure is slightly elevated. Will observe prior to treatment. Continue diuresis for now. The patient's Eliquis has been stopped for possible thoracentesis after 48 hours. There is no recurrence of atrial fibrillation. There is no ventricular arrhythmia seen on the monitor. The patient is tolerating beta-fan. PHYSICAL EXAMINATION: The patient is mildly obese. In no acute distress. Selected Entries 03/28/19 03/28/19 12:00 13:53 Temperature 97.3 F Temperature Axillary Source Pulse Rate 89 Heart Rate ( 69 Monitors) Respiratory 22 H 15 Rate Blood Pressure 147/63 H Blood Pressure 185/90 H [Left Upper Arm ] Blood Pressure 91 Mean Blood Pressure 121 Mean [Left Upper Arm] Blood Pressure Supine Position [Left Upper Arm] O2 Sat by Pulse 94 92 Oximetry Oxygen Delivery Mechanical Method ( Ventilator includes room FiO2 of 35%. air) HEAD: Is atraumatic. Normocephalic. EYES: Pupils are equal round reactive to light. ENT is negative. NECK: Supple. There is no JVD. There is mild accessory muscle respiration use. Trachea central. LUNGS: There is diminished air entry and prolonged expiration. On percussion there is hyperresonance. There is a few dry crackles of the right base. HEART: S1-S2 is heard. There is no S3 gallop. There is no S4 gallop there is systolic murmur in the left sternal border and the apex there is no rub. ABDOMEN: Is obese. There is no hepatospleno megaly. Bowel sounds well heard. EXTREMITIES: Femorals are diminished there is no femoral bruits. Leg pulses are diminished. There is tr terry pedal edema in the right lower extremity. There is no DVT or cellulitis. There is no calf tenderness. There is no cyanosis or clubbing. MISSION SYSTEMS ENGINEER and PSYCHIATRIC: Not examined due to patient being intubated and sedated. Labs- All tests 24 hr 03/27/19 03/28/19 03/28/19 23:09 03:32 03:32 WBC 15.1 H RBC 3.54 L Hgb 10.7 L Hct 32.3 L MCV 91 MCH 30.3 MCHC 33.2 RDW 14.6 H Plt Count 187 Lymph % (Auto) 3.6 L [place] % (Auto) 5.7 Eos % (Auto) 0.0 Baso % (Auto) 0.2 Absolute Neuts (auto) 13.6 H Absolute Lymphs (auto) 0.5 Absolute Monos (auto) 0.9 Absolute Eos (auto) 0.0 Absolute Basos (auto) 0.0 Total Counted 100 Seg Neutrophils % 90.5 H Seg Neuts % (Manual) 84 H Band Neutrophils % 4 Lymphocytes % (Manual) 4 L Monocytes % (Manual) 8 Eosinophils % (Manual) 0 Basophils % (Manual) 0 Abs Neuts (Manual) 13.3 H Abs Lymphs (Manual) 0.6 Abs Monocytes (Manual) 1.2 Absolute Eos (Manual) 0.0 Abs Basophils (Manual) 0.0 Platelet Comment ADEQUATE Anisocytosis SLIGHT Carbonic Acid HCO3/H2CO3 Ratio ABG pH ABG pCO2 ABG pO2 ABG HCO3 ABG Total CO2 ABG O2 Saturation ABG Base Excess FiO2 Sodium 147.9 H Potassium 3.2 L Chloride 110 H Carbon Dioxide 31 H Anion Gap 7 BUN 81 H Creatinine 2.20 H Est GFR ( Amer) 36 L Est GFR (MDRD) Non-Af 30 L Glucose 180 H POC Glucose 224 H Calcium 8.5 Magnesium 2.2 03/28/19 03/28/19 03/28/19 05:45 09:40 09:50 WBC RBC Hgb Hct MCV MCH MCHC RDW Plt Count Lymph % (Auto) [place] % (Auto) Eos % (Auto) Baso % (Auto) Absolute Neuts (auto) Absolute Lymphs (auto) Absolute Monos (auto) Absolute Eos (auto) Absolute Basos (auto) Total Counted Seg Neutrophils % Seg Neuts % (Manual) Band Neutrophils % Lymphocytes % (Manual) Monocytes % (Manual) Eosinophils % (Manual) Basophils % (Manual) Abs Neuts (Manual) Abs Lymphs (Manual) Abs Monocytes (Manual) Absolute Eos (Manual) Abs Basophils (Manual) Platelet Comment Anisocytosis Carbonic Acid 1.48 H HCO3/H2CO3 Ratio 22:1 ABG pH 7.44 ABG pCO2 49.3 H ABG pO2 52.1 L ABG HCO3 32.7 H ABG Total CO2 34.2 H ABG O2 Saturation 87.6 L ABG Base Excess 7.5 FiO2 70% Sodium Potassium Chloride Carbon Dioxide Anion Gap BUN Creatinine Est GFR ( Amer) Est GFR (MDRD) Non-Af Glucose POC Glucose 175 H 214 H Calcium Magnesium 03/28/19 03/28/19 13:05 17:35 WBC RBC Hgb Hct MCV MCH MCHC RDW Plt Count Lymph % (Auto) [place] % (Auto) Eos % (Auto) Baso % (Auto) Absolute Neuts (auto) Absolute Lymphs (auto) Absolute Monos (auto) Absolute Eos (auto) Absolute Basos (auto) Total Counted Seg Neutrophils % Seg Neuts % (Manual) Band Neutrophils % Lymphocytes % (Manual) Monocytes % (Manual) Eosinophils % (Manual) Basophils % (Manual) Abs Neuts (Manual) Abs Lymphs (Manual) Abs Monocytes (Manual) Absolute Eos (Manual) Abs Basophils (Manual) Platelet Comment Anisocytosis Carbonic Acid HCO3/H2CO3 Ratio ABG pH ABG pCO2 ABG pO2 ABG HCO3 ABG Total CO2 ABG O2 Saturation ABG Base Excess FiO2 Sodium Potassium Chloride Carbon Dioxide Anion Gap BUN Creatinine Est GFR ( Amer) Est GFR (MDRD) Non-Af Glucose POC Glucose 189 H 178 H Calcium Magnesium Chest X-Ray 03/20/19 00:00 IMPRESSION: Worsening congestive failure with interstitial pulmonary edema. Chest X-Ray 03/20/19 00:00 IMPRESSION: Endotracheal tube is in place. Moderate pulmonary edema. Findings correlate from prior study. Chest X-Ray 03/20/19 02:37 IMPRESSION: Mild increased reticular interstitial changes may all be chronic in nature but cannot exclude minimal edema or atypical pneumonia. Correlation with an old exam or short-term follow-up will be useful. Vascular Ultrasound 03/21/19 07:41 IMPRESSION: NO DOPPLER EVIDENCE OF HEMODYNAMICALLY SIGNIFICANT RENAL ARTERY STENOSIS. Chest CT 03/21/19 13:00 IMPRESSION: 1. Findings most compatible CHF with moderate bilateral pleural effusions and bibasilar consolidation, likely atelectasis. Interlobular and septal thickening and patchy ground-glass attenuation, likely edema although superimposed infection is not entirely excluded. 2. Cardiomegaly. Coronary atherosclerosis. 3. Endotracheal tube within the midthoracic trachea. Chest X-Ray 03/22/19 00:00 IMPRESSION: Endotracheal tube, nasogastric tube in good positioning of the 2nd film. Unchanged bilateral pleural effusions with bibasilar airspace disease Renal Ultrasound 03/22/19 00:00 IMPRESSION: No hydronephrosis Mild increased cortical echogenicity from medical renal disease KUB X-Ray 03/23/19 15:17 IMPRESSION: THE TIP OF THE NASOGASTRIC TUBE IN THE STOMACH. NO RADIOGRAPHIC EVIDENCE FOR ACUTE ABDOMINAL DISEASE. Head CT 03/24/19 00:00 IMPRESSION: NO ACUTE INTRACRANIAL FINDINGS. EVIDENCE OF ACUTE STROKE: NO. Chest X-Ray 03/25/19 00:00 IMPRESSION: Moderate bilateral pleural effusions, left retrocardiac consolidation Endotracheal tube tip 5 cm above the ness KUB X-Ray 03/25/19 00:00 IMPRESSION: Nasogastric tube tip and side port in the stomach. Persistent left retrocardiac consolidation worrisome for pneumonia Chest X-Ray 03/26/19 00:00 IMPRESSION: Bilateral pleural effusions have increased. Airspace disease left lower lobe, consolidation versus atelectasis. Chest X-Ray 03/27/19 06:00 IMPRESSION: Unchanged radiographic appearance of the chest as detailed above. Chest CT 03/28/19 00:00 IMPRESSION: Persistent moderate to large bilateral pleural effusions with dense consolidation in the lung bases consistent with pneumonia. Chest X-Ray 03/28/19 00:00 IMPRESSION: Endotracheal tube is been advanced as described. It now lies 5.2 cm above the ness. No other significant change. Chest X-Ray 03/28/19 07:56 IMPRESSION: Endotracheal tube has been repositioned as described. No other interval change. IMPRESSION/RECOMMENDATION: 1. Acute on probably chronic respiratory failure: Continue ventilators, continue antibiotics. 2. COPD: Continue ventilator support. Continue bronchodilators and antibiotics. 3. Elevated troponin I: Non-ST elevation VT versus secondary to supply demand mismatch. Agree with stopping the patient's IV heparin since her troponin is trending down. Later would recommend that the patient have a IV Lexiscan Cardiolite stress test.. Will recheck troponin I and EKG in the a.m. 4. Acute on chronic kidney disease. The patient's current baseline CKD stage III. At present stage IV. Avoid nephrotoxic drugs. 5. Bilateral lower lobe pneumonia with consolidation and most likely para-pn eumonic effusions: Continue antibiotics. The patient's Eliquis has been held, for possible thoracentesis for therapeutic and diagnostic intervention. 6.Hypotension: Resolved. Patient blood pressure is very high. 7. History of hypertension: At present patient blood pressure low requiring pressors. 8. Diabetes mellitus: Continue insulin as per blood sugar checks. 9. Possible interstitial lung disease.: The CT scan is reported as findings which did not support ILD. But will discuss with radiology. 10. Episodic heart failure secondary to hypertensive blood pressure spikes. Note that the patient's LV ejection fraction is normal. 11. Peripheral vascular disease as per history. Medications reviewed. Medications and management plan discussed with attending physician Dr. Dailey the high lift operator, and Dr. Adrian Espinal the automobile dealer. Medical decision making is of high complexity. 40 minutes spent on this patient more than 50% of time spent in direct patient care. We will continue to follow.
[2019-03-29] MEDS: ALBUTEROL SULFATE 0.042% NEB (1.25 MG/3 ML) AMPUL NEB SCH ×6 (00:38→20:51)
[2019-03-29] MEDS: HYDROMORPHONE HCL INJ/PF 2 MG/ML AMPULE IV PRN (01:37)
[2019-03-29 04:22] LABS: HEMATOCRIT 33.8 % (37.9-51.0); HEMOGLOBIN 10.9 g/dL (13.5-17.0); MEAN CORPUSCULAR HEMOGLOBIN 29.9 pg (27.0-33.4); MEAN CORPUSCULAR HGB CONC 32.4 g/dL (32.0-36.0); MEAN CORPUSCULAR VOLUME 92 fl (80-97); PLATELET COUNT 212 10^3/uL (150-450); RED BLOOD COUNT 3.67 10^6/uL (4.35-5.55); RED CELL DISTRIBUTION WIDTH 15.1 % (11.5-14.0); WHITE BLOOD COUNT 16.7 10^3/uL (4.0-10.5)
[2019-03-29 04:29] LABS: INTERNATIONAL RATION (INR) 1.39; PROTHROMBIN TIME 17.1 SEC (11.4-15.4)
[2019-03-29 04:44] LABS: ABSOLUTE LYMPHOCYTES# (MANUAL) 0.5 10^3/uL (0.5-4.7); ABSOLUTE MONOCYTES # (MANUAL) 0.5 10^3/uL (0.1-1.4); ANION GAP 11 (5-19); ANISOCYTOSIS SLIGHT; BAND NEUTROPHILS % (MANUAL) 1 % (3-5); BASOPHILS % (MANUAL) 0 % (0-2); BLOOD UREA NITROGEN 87 mg/dL (7-20); CALCIUM 8.8 mg/dL (8.4-10.2); CARBON DIOXIDE 31 mmol/L (22-30); CHLORIDE 107 mmol/L (98-107); EOSINOPHILS % (MANUAL) 1 % (0-6); GLUCOSE 159 mg/dL (75-110); LYMPHOCYTES % (MANUAL) 3 % (13-45); MONOCYTES % (MANUAL) 3 % (3-13); OVALOCYTES SLIGHT; PLATELET COMMENT ADEQUATE; POTASSIUM 3.5 mmol/L (3.6-5.0); SEGMENTED NEUTROPHILS % (MAN) 92 % (42-78); TOTAL CELLS COUNTED 100
[2019-03-29] MEDS: FUROSEMIDE INJ/PF 40 MG/4 ML SDV IV SCH ×2 (06:00→16:00)
[2019-03-29] MEDS: PROPOFOL 1,000 MG/100 ML INFUS..BTL IV PRN ×2 (06:00→14:00)
[2019-03-29] MEDS: METHYLPREDNISOLONE INJ 125 MG/2 ML SDV IV SCH ×3 (06:00→18:30)
[2019-03-29] MEDS: INSULIN LISPRO 100 UNIT/ML 3 ML VIAL SUBCUT SCH ×3 (06:00→19:09)
[2019-03-29] MEDS: HYDRALAZINE HCL INJ/PF 20 MG/1 ML SDV IV PRN (08:05)
[2019-03-29] MEDS: FENTANYL CITRATE/PF 600 MCG/60 ML BAG IV PRN ×2 (08:26→19:45)
[2019-03-29] MEDS ORDERED: POTASSIUM CHLORIDE 20 MEQ PACKET PO ONE (08:32)
--- NOTE | 2019-03-29 08:57 | RADIOLOGY REPORT (SQ) ---
EXAM DESCRIPTION: CHEST SINGLE VIEW COMPLETED DATE/TIME: 03/29/2019 6:00 am REASON FOR STUDY: resp failure, PNA COMPARISON: 03/28/2019 EXAM PARAMETERS: NUMBER OF VIEWS: One view. TECHNIQUE: Single frontal radiographic view of the chest acquired. RADIATION DOSE: NA LIMITATIONS: None. FINDINGS: Interval improvement in lung volumes with persistent layering pleural effusions and associ ated atelectasis or consolidation. No new airspace opacity. Unchanged support apparatus including e ndotracheal tube. Cardiomegaly. IMPRESSION: Interval improvement in lung volumes with persistent layering pleural effusions and asso ciated atelectasis or consolidation. No new airspace opacity. Unchanged support apparatus including endotracheal tube. Cardiomegaly. TECHNICAL DOCUMENTATION: JOB ID: [id number] [employer]- All Rights Reserved Reading location - IP/workstation name: [email or web address]
[2019-03-29] MEDS: FAMOTIDINE INJ/PF 20 MG/2 ML SDV IV SCH (09:39)
[2019-03-29] MEDS: INSULIN GLARGINE,HUM.REC.ANLOG 1,000 UNIT/10 ML VIAL SUBCUT SCH ×2 (09:39→18:31)
[2019-03-29] MEDS: AMLODIPINE BESYLATE 10 MG TABLET PO SCH (09:40)
[2019-03-29] MEDS: GABAPENTIN 300 MG CAPSULE NG SCH ×2 (09:40→22:27)
[2019-03-29] MEDS: METOPROLOL TARTRATE 50 MG TABLET NG SCH ×2 (09:41→22:27)
[2019-03-29] MEDS: MEROPENEM 500 MG in NORMAL SALINE 50 ML IV SCH ×2 (09:41→22:26)
[2019-03-29] MEDS: HYDRALAZINE HCL 25 MG TABLET PO SCH ×3 (09:47→18:31)
[2019-03-29] MEDS ORDERED: NORMAL SALINE IV SCH (10:00)
[2019-03-29] MEDS ORDERED: MEROPENEM IV SCH (10:00)
[2019-03-29] MEDS: LACTULOSE SYRUP 20 GM/30 ML UDCUP NG SCH (10:24)
--- NOTE | 2019-03-29 10:27 | PDOC PROGRESS REPORT ---
Subjective Progress Note for:: 03/29/19 Subjective:: ICU Progress Note. Pt remains intubated. Is awake and alert. In the chair position in the bed. Remains hypertensive. Reason For Visit: ACUTE HYPOXIC RESPIRATORY FAILURE,ACUTE KIDNEY Physical Exam Vital Signs: Temp Pulse Resp BP Pulse Ox 97.0 F 83 18 185/80 H 91 L 03/29/19 08:00 03/29/19 08:38 03/29/19 08:38 03/29/19 08:00 03/29/19 08:38 Intake & Output 03/28/19 03/29/19 03/30/19 06:59 06:59 06:59 Intake Total 863 715 41 Output Total 3195 2990 125 Balance -4508 -3054 -93 Weight 111.7 kg 111.2 kg General appearance: PRESENT: no acute distress, well-developed, well-nourished, other - intubated Head exam: PRESENT: atraumatic, normocephalic Respiratory exam: PRESENT: decreased breath sounds, unlabored Cardiovascular exam: PRESENT: RRR GI/Abdominal exam: PRESENT: soft, other - non-tender, non-distended Extremities exam: PRESENT: other - edema Results Laboratory Results: 03/29/19 04:05 03/29/19 04:05 03/29/19 03/29/19 04:05 04:05 WBC 16.7 H RBC 3.67 L Hgb 10.9 L Hct 33.8 L MCV 92 MCH 29.9 MCHC 32.4 RDW 15.1 H Plt Count 212 Seg Neutrophils % Not Reportable Sodium 148.6 H Potassium 3.5 L Chloride 107 Carbon Dioxide 31 H Anion Gap 11 BUN 87 H Creatinine 2.44 H Est GFR ( Amer) 32 L Glucose 159 H Calcium 8.8 Magnesium 2.3 03/26/19 12:30 Tracheal Aspirate Gram Stain - Final 03/26/19 12:30 Tracheal Aspirate Sputum Culture - Final Pseudomonas Aeruginosa Normal Brittnee Absent 03/20/19 03/20/19 03/20/19 02:40 02:40 07:06 Creatine Kinase 109 CK-MB (CK-2) 2.86 Cancelled Troponin I 0.040 Cancelled NT-Pro-B Natriuret Pep 4540 H 03/20/19 03/20/19 03/20/19 07:54 12:30 17:52 Creatine Kinase CK-MB (CK-2) 10.90 H Troponin I 0.648 1.770 3.420 NT-Pro-B Natriuret Pep 03/21/19 03/21/19 03/21/19 06:10 06:10 11:57 Creatine Kinase 353 H 258 H CK-MB (CK-2) 17.60 H Troponin I 5.350 NT-Pro-B Natriuret Pep 03/21/19 03/21/19 03/21/19 11:57 16:08 16:08 Creatine Kinase 232 H CK-MB (CK-2) 13.90 H 11.60 H Troponin I 4.320 4.530 NT-Pro-B Natriuret Pep 03/22/19 03/24/19 05:31 03:49 Creatine Kinase CK-MB (CK-2) Troponin I 3.240 3.270 NT-Pro-B Natriuret Pep Impressions: Vascular Ultrasound 03/21/19 07:41 IMPRESSION: NO DOPPLER EVIDENCE OF HEMODYNAMICALLY SIGNIFICANT RENAL ARTERY STENOSIS. Renal Ultrasound 03/22/19 00:00 IMPRESSION: No hydronephrosis Mild increased cortical echogenicity from medical renal disease Head CT 03/24/19 00:00 IMPRESSION: NO ACUTE INTRACRANIAL FINDINGS. EVIDENCE OF ACUTE STROKE: NO. KUB X-Ray 03/25/19 00:00 IMPRESSION: Nasogastric tube tip and side port in the stomach. Persistent left retrocardiac consolidation worrisome for pneumonia Chest CT 03/28/19 00:00 IMPRESSION: Persistent moderate to large bilateral pleural effusions with dense consolidation in the lung bases consistent with pneumonia. Chest X-Ray 03/29/19 06:00 IMPRESSION: Interval improvement in lung volumes with persistent layering pleural effusions and associated atelectasis or consolidation. No new airspace opacity. Unchanged support apparatus including endotracheal tube. Cardiomegaly. Assessment & Plan - Diagnosis (1) Acute respiratory failure Qualifiers: Respiratory failure complication: unspecified whether with hypoxia or hypercapnia Qualified Code(s): J96.00 - Acute respiratory failure, unspecified whether with hypoxia or hypercapnia Is this a current diagnosis for this admission?: Yes (2) Pseudomonas pneumonia Qualifiers: Lung location: unspecified part of lung Is this a current diagnosis for this admission?: Yes (3) COPD with exacerbation Is this a current diagnosis for this admission?: Yes (4) Atrial flutter Is this a current diagnosis for this admission?: Yes (5) Acute kidney injury Is this a current diagnosis for this admission?: Yes (6) CKD (chronic kidney disease) stage 3, GFR 30-59 ml/min Is this a current diagnosis for this admission?: Yes (7) NSTEMI (non-ST elevated myocardial infarction) Is this a current diagnosis for this admission?: Yes (8) Diabetes Qualifiers: Diabetes mellitus type: type 2 Diabetes mellitus jail insulin use: unspecified jail insulin use status Chronic kidney disease stage: stage 3 (moderate) Is this a current diagnosis for this admission?: Yes (9) Pleural effusion Is this a current diagnosis for this admission?: Yes - Plan Summary Plan Summary: Assessment: Critically ill 68 yo man with acute respiratory failure, pseudomonas PNA, AECOPD, aflutter, HTN, NSTEMI, VIDYA, CKD, DM, pleural effusions Plan: 1. Respiratory: acute respiratory failure. Vent day 9. 2. Pulmonary: Pseudomonas PNA, COPD, possible ILD, large bilateral pleural effusions. WBC continues to increase. Will start merropenem. Continue vanc and levquin. To have pigtail catheters placed today by IR. Continue solumedrol, lasix, duonebs 3. CV: atrial flutter, rate controlled. NSTEMI due to demand ischemia. HTN. Continue lopressor and norvac. Continue lasix. Will start oral hydralazine. 4. Renal:VIDYA,CKD stage 3. Cr increasing. Is 2.44. Continue lasix for one more day. 5. ID: pseudomonas PNA. ATBX Day 9. Worsening leukocytosis. Will continue vanc a nd levaquin. Will d/c cefepime and start meropenem. 6. Endocrine: DM. lantus, SSI 7. Heme: eliquis on hold for placement of pleural pigtail catheters 8. F/E/N: tolerating tube feeds. Hypernatremia, continue free water flushes. Hypokalemia, will replace potassium. Constipation, will start lactulose 9. Disposition: pt will probably need trach and PEG if not extubated by the end of this week. He will probably need an LTAC. Case management has been consulted for LTAC placement. Critical care time= 40 min, excluding procedures
[2019-03-29] MEDS: VANCOMYCIN HCL 1,500 MG in DEXTROSE 5%-WATER 250 ML IV SCH (12:33)
[2019-03-29 13:15] LABS: ALBUMIN 2.9 g/dL (3.5-5.0)
[2019-03-29] MEDS ORDERED: FENTANYL CITRATE INJ/PF 100 MCG/2 ML AMPUL ONE (13:39)
--- NOTE | 2019-03-29 15:33 | RADIOLOGY REPORT (SQ) ---
EXAM DESCRIPTION: CHEST SINGLE VIEW COMPLETED DATE/TIME: 03/29/2019 3:01 pm REASON FOR STUDY: s/p thoracentesis COMPARISON: 03/29/2019 EXAM PARAMETERS: NUMBER OF VIEWS: One view. TECHNIQUE: Single frontal radiographic view of the chest acquired. RADIATION DOSE: NA LIMITATIONS: None. FINDINGS: LUNGS AND PLEURA: No pneumothorax status post thoracentesis. There appears to be residual pleural effusion on the left. There is retrocardiac opacification on the left. MEDIASTINUM AND HILAR STRUCTURES: No masses. Contour normal. HEART AND VASCULAR STRUCTURES: Heart size is borderline. No pulmonary edema. BONES: No acute findings. HARDWARE: Endotracheal tube remains in place. Monitoring device. OTHER: No other significant finding. IMPRESSION: No pneumothorax. Residual left pleural effusion. TECHNICAL DOCUMENTATION: JOB ID: [id number] [employer]- All Rights Reserved Reading location - IP/workstation name: [email or web address]
--- NOTE | 2019-03-29 16:29 | RADIOLOGY REPORT (SQ) ---
EXAM DESCRIPTION: U/S THORACENTESIS W/CHEST TUBE COMPLETED DATE/TIME: 03/29/2019 2:38 pm REASON FOR STUDY: bilateral pleural effusions COMPARISON: AP chest 03/29/2019 FLUORO TIME: None 1 ultrasound image saved to PACS. TECHNIQUE: Image guided chest tube placement using sterile technique. LIMITATIONS: None FINDINGS: Consent for the procedure was obtained from the patient's family. Study was performed in the ICU portably with ultrasound guidance. A time out was then called for site verification. An entry site was then marked using ultrasound guid ance. The right lateral chest wall was then prepped and draped in a sterile fashion. The site was th en anesthetized using 6 ml of 1% lidocaine solution. An 11 blade scalpel was used to make a small sk in incision. A 18g -7cm needle was advanced into the chest wall. A.038 guidewire was passed through the needle. The tract was then dilated using a 8 Haitian dilator. A 8 fr drain was then placed over the wire. The catheter was then attached to the collection device. The entry site was covered with a sterile bandage. Documentation face to face time, the performing proceduralist, spent monitoring the patient: 20minute s. IMPRESSION: SUCCESSFUL PLACEMENT OF A RIGHT SIDED CHEST 8 NIGERIEN PIGTAIL TUBE USING ULTRASOUND LISA NCE. COMMENT: Patient medication list reviewed: Yes- Quality ID# [id number]:Eligible professional attests to do cumenting in the medical record they obtained, updated, or reviewed the patient's current medications . Quality ID 145: Final reports for procedures using fluoroscopy that document radiation exposure kaycee timo, or exposure time and number of fluorographic images (if radiation exposure indices are not avail able) TECHNICAL DOCUMENTATION: JOB ID: [id number] [employer]- All Rights Reserved rev Reading location - IP/workstation name: [email or web address]
[2019-03-29] MEDS ORDERED: NORMAL SALINE 1000 ML 1,000 ML IV ONE (18:00)
[2019-03-29] MEDS ORDERED: EPINEPHRINE INJ 1 MG/10 ML DISP.SYRIN ONE (20:49)
--- NOTE | 2019-03-29 22:13 | Progress Note ---
Provider Note Provider Note: CARDIOLOGY PROGRESS NOTE by Dr. Simran Sanchez on 03/29/2019. SUBJECTIVE: The patient is intubated and sedated. His blood pressure is high, and he has been started on multiple antral antihypertensives. He had a pigtail insertion into the right pleural effusion with drainage of almost the whole amount. Subsequent to this patient required increase in his FiO2 to keep his oxygenation up. His blood pressure continues to be elevated. There is no atrial fibrillation recurrence or atrial flutter recurrence or ventricular tachycardia or other ventricular arrhythmias. PHYSICAL EXAMINATION: The patient is intubated and sedated. Selected Entries 03/29/19 16:00 Temperature 97.9 F Temperature Axillary Source Pulse Rate 87 Respiratory 22 H Rate Blood Pressure 168/90 H [Left Upper Arm ] Blood Pressure 116 Mean [Left Upper Arm] Blood Pressure Supine Position [Left Upper Arm] O2 Sat by Pulse 96 Oximetry Oxygen Delivery Mechanical Method ( Ventilator includes room air) HEAD: Is atraumatic. Normocephalic. EYES: Pupils are equal round reactive to light. ENT is negative. NECK: Supple. There is no JVD. There is mild accessory muscle respiration use. Trachea central. LUNGS: There is diminished air entry and prolonged expiration. On percussion there is hyperresonance. The right lung is otherwise clear, except for a few scattered rhonchi. There is absent breath sounds and dullness in the left base.. HEART: S1-S2 is heard. There is no S3 gallop. There is no S4 gallop there is systolic murmur in the left sternal border and the apex there is no rub. ABDOMEN: Is obese. There is no hepatospleno megaly. Bowel sounds well heard. EXTREMITIES: Femorals are diminished there is no femoral bruits. Leg pulses are diminished. There is trace pedal edema in the right lower extremity. There is no DVT or cellulitis. There is no calf tenderness. There is no cyanosis or clubbing. [employer] and PSYCHIATRIC: Not examined due to patient being intubated and sedated. Labs- All tests 24 hr 03/28/19 03/29/19 03/29/19 23:05 04:05 04:05 WBC 16.7 H RBC 3.67 L Hgb 10.9 L Hct 33.8 L MCV 92 MCH 29.9 MCHC 32.4 RDW 15.1 H Plt Count 212 Lymph % (Auto) Not Reportable Lamar % (Auto) Not Reportable Eos % (Auto) Not Reportable Baso % (Auto) Not Reportable Absolute Neuts (auto) Not Reportable Absolute Lymphs (auto) Not Reportable Absolute Monos (auto) Not Reportable Absolute Eos (auto) Not Reportable Absolute Basos (auto) Not Reportable Total Counted 100 Seg Neutrophils % Not Reportable Seg Neuts % (Manual) 92 H Band Neutrophils % 1 L Lymphocytes % (Manual) 3 L Monocytes % (Manual) 3 Eosinophils % (Manual) 1 Basophils % (Manual) 0 Abs Neuts (Manual) 15.5 H Abs Lymphs (Manual) 0.5 Abs Monocytes (Manual) 0.5 Absolute Eos (Manual) 0.2 Abs Basophils (Manual) 0.0 Platelet Comment ADEQUATE Anisocytosis SLIGHT Ovalocytes SLIGHT PT INR APTT Sodium 148.6 H Potassium 3.5 L Chloride 107 Carbon Dioxide 31 H Anion Gap 11 BUN 87 H Creatinine 2.44 H Est GFR ( Amer) 32 L Est GFR (MDRD) Non-Af 27 L Glucose 159 H POC Glucose 176 H Calcium 8.8 Magnesium 2.3 Lactate Dehydrogenase Albumin Triglycerides 03/29/19 03/29/19 03/29/19 04:05 04:05 04:05 WBC RBC Hgb Hct MCV MCH MCHC RDW Plt Count Lymph % (Auto) Lamar % (Auto) Eos % (Auto) Baso % (Auto) Absolute Neuts (auto) Absolute Lymphs (auto) Absolute Monos (auto) Absolute Eos (auto) Absolute Basos (auto) Total Counted Seg Neutrophils % Seg Neuts % (Manual) Band Neutrophils % Lymphocytes % (Manual) Monocytes % (Manual) Eosinophils % (Manual) Basophils % (Manual) Abs Neuts (Manual) Abs Lymphs (Manual) Abs Monocytes (Manual) Absolute Eos (Manual) Abs Basophils (Manual) Platelet Comment Anisocytosis Ovalocytes PT 17.1 H INR 1.39 APTT 32.0 Sodium Potassium Chloride Carbon Dioxide Anion Gap BUN Creatinine Est GFR ( Amer) Est GFR (MDRD) Non-Af Glucose POC Glucose Calcium Magnesium Lactate Dehydrogenase Albumin Triglycerides 190 H 03/29/19 03/29/19 03/29/19 05:53 09:27 12:14 WBC RBC Hgb Hct MCV MCH MCHC RDW Plt Count Lymph % (Auto) Lamar % (Auto) Eos % (Auto) Baso % (Auto) Absolute Neuts (auto) Absolute Lymphs (auto) Absolute Monos (auto) Absolute Eos (auto) Absolute Basos (auto) Total Counted Seg Neutrophils % Seg Neuts % (Manual) Band Neutrophils % Lymphocytes % (Manual) Monocytes % (Manual) Eosinophils % (Manual) Basophils % (Manual) Abs Neuts (Manual) Abs Lymphs (Manual) Abs Monocytes (Manual) Absolute Eos (Manual) Abs Basophils (Manual) Platelet Comment Anisocytosis Ovalocytes PT INR APTT Sodium Potassium Chloride Carbon Dioxide Anion Gap BUN Creatinine Est GFR ( Amer) Est GFR (MDRD) Non-Af Glucose POC Glucose 180 H 155 H 160 H Calcium Magnesium Lactate Dehydrogenase Albumin Triglycerides 03/29/19 03/29/19 12:35 18:23 WBC RBC Hgb Hct MCV MCH MCHC RDW Plt Count Lymph % (Auto) Lamar % (Auto) Eos % (Auto) Baso % (Auto) Absolute Neuts (auto) Absolute Lymphs (auto) Absolute Monos (auto) Absolute Eos (auto) Absolute Basos (auto) Total Counted Seg Neutrophils % Seg Neuts % (Manual) Band Neutrophils % Lymphocytes % (Manual) Monocytes % (Manual) Eosinophils % (Manual) Basophils % (Manual) Abs Neuts (Manual) Abs Lymphs (Manual) Abs Monocytes (Manual) Absolute Eos (Manual) Abs Basophils (Manual) Platelet Comment Anisocytosis Ovalocytes PT INR APTT Sodium Potassium Chloride Carbon Dioxide Anion Gap BUN Creatinine Est GFR ( Amer) Est GFR (MDRD) Non-Af Glucose POC Glucose 134 H Calcium Magnesium Lactate Dehydrogenase 269 H Albumin 2.9 L Triglycerides Chest X-Ray 03/20/19 00:00 IMPRESSION: Worsening congestive failure with interstitial pulmonary edema. Chest X-Ray 03/20/19 00:00 IMPRESSION: Endotracheal tube is in place. Moderate pulmonary edema. Findings correlate from prior study. Chest X-Ray 03/20/19 02:37 IMPRESSION: Mild increased reticular interstitial changes may all be chronic in nature but cannot exclude minimal edema or atypical pneumonia. Correlation with an old exam or short-term follow-up will be useful. Vascular Ultrasound 03/21/19 07:41 IMPRESSION: NO DOPPLER EVIDENCE OF HEMODYNAMICALLY SIGNIFICANT RENAL ARTERY STENOSIS. Chest CT 03/21/19 13:00 IMPRESSION: 1. Findings most compatible CHF with moderate bilateral pleural effusions and bibasilar consolidation, likely atelectasis. Interlobular and septal thickening and patchy ground-glass attenuation, likely edema although superimposed infection is not entirely excluded. 2. Cardiomegaly. Coronary atherosclerosis. 3. Endotracheal tube within the midthoracic trachea. Chest X-Ray 03/22/19 00:00 IMPRESSION: Endotracheal tube, nasogastric tube in good positioning of the 2nd film. Unchanged bilateral pleural effusions with bibasilar airspace disease Renal Ultrasound 03/22/19 00:00 IMPRESSION: No hydronephrosis Mild increased cortical echogenicity from medical renal disease KUB X-Ray 03/23/19 15:17 IMPRESSION: THE TIP OF THE NASOGASTRIC TUBE IN THE STOMACH. NO RADIOGRAPHIC EVIDENCE FOR ACUTE ABDOMINAL DISEASE. Head CT 03/24/19 00:00 IMPRESSION: NO ACUTE INTRACRANIAL FINDINGS. EVIDENCE OF ACUTE STROKE: NO. Chest X-Ray 03/25/19 00:00 IMPRESSION: Moderate bilateral pleural effusions, left retrocardiac consolidation Endotracheal tube tip 5 cm above the ness KUB X-Ray 03/25/19 00:00 IMPRESSION: Nasogastric tube tip and side port in the stomach. Persistent left retrocardiac consolidation worrisome for pneumonia Chest X-Ray 03/26/19 00:00 IMPRESSION: Bilateral pleural effusions have increased. Airspace disease left lower lobe, consolidation versus atelectasis. Chest X-Ray 03/27/19 06:00 IMPRESSION: Unchanged radiographic appearance of the chest as detailed above. Chest CT 03/28/19 00:00 IMPRESSION: Persistent moderate to large bilateral pleural effusions with dense consolidation in the lung bases consistent with pneumonia. Chest X-Ray 03/28/19 00:00 IMPRESSION: Endotracheal tube is been advanced as described. It now lies 5.2 cm above the ness. No other significant change. Chest X-Ray 03/28/19 07:56 IMPRESSION: Endotracheal tube has been repositioned as described. No other interval change. Chest X-Ray 03/29/19 06:00 IMPRESSION: Interval improvement in lung volumes with persistent layering pleural effusions and associated atelectasis or consolidation. No new airspace opacity. Unchanged support apparatus including endotracheal tube. Cardiomegaly. Thoracentesis Ultrasound 03/29/19 10:00 IMPRESSION: SUCCESSFUL PLACEMENT OF A RIGHT SIDED CHEST 8 TAJIK PIGTAIL TUBE USING ULTRASOUND GUIDANCE. Chest X-Ray 03/29/19 14:29 IMPRESSION: No pneumothorax. Residual left pleural effusion. IMPRESSION/RECOMMENDATION: 1. Acute on probably chronic respiratory failure: Continue ventilators, continue antibiotics. 2. COPD: Continue ventilator support. Continue bronchodilators and antibiotics. 3. Elevated troponin I: Non-ST elevation OR versus secondary to supply demand mismatch. Agree with stopping the patient's IV heparin since her troponin is trending down. Later would recommend that the patient have a IV Lexiscan Cardiolite stress test.. Will recheck troponin I and EKG in the a.m. 4. Acute on chronic kidney disease. The patient's current baseline CKD stage III. At present stage IV. Avoid nephrotoxic drugs. 5. Bilateral lower lobe pneumonia with consolidation and most likely para- pneumonic effusions: Continue antibiotics. The patient had a pigtail inserted into the right pleural cavity with drainage of fluid. There is almost no pleural fluid on the right side. There is still left pleural effusion and consolidation present. Strongly recommend pleural fluid analysis to differentiate exudate versus transudate. 6.Hypotension: Resolved. Patient blood pressure is very high. Patient has been started him on triple enteral antihypertensives. 7. History of hypertension: At present patient blood pressure is very high. 8. Diabetes mellitus: Continue insulin as per blood sugar checks. 9. Possible interstitial lung disease.: The CT scan is reported as findings which did not support ILD. But will discuss with radiology. 10. Episodic heart failure secondary to hypertensive blood pressure spikes. Note that the patient's LV ejection fraction is normal. 11. Peripheral vascular disease as per history. MEDICATIONS reviewed. Management plan discussed with the automatic corn grinder operator. Discussed with the cafe or restaurant manager. Medical decision making is still of high complexity. 40 minutes spent on this patient, with more than 50% of time spent in direct patient care.
[2019-03-30] MEDS: METHYLPREDNISOLONE INJ 125 MG/2 ML SDV IV SCH ×2 (00:06→06:20)
[2019-03-30] MEDS: HYDRALAZINE HCL 25 MG TABLET PO SCH ×3 (00:06→13:31)
[2019-03-30] MEDS: ALBUTEROL SULFATE 0.042% NEB (1.25 MG/3 ML) AMPUL NEB SCH ×6 (00:52→19:54)
[2019-03-30] MEDS: FENTANYL CITRATE/PF 600 MCG/60 ML BAG IV PRN ×4 (01:40→19:05)
[2019-03-30] MEDS: INSULIN LISPRO 100 UNIT/ML 3 ML VIAL SUBCUT SCH ×5 (01:40→23:27)
[2019-03-30 05:14] LABS: HEMATOCRIT 32.1 % (37.9-51.0); HEMOGLOBIN 10.7 g/dL (13.5-17.0); MEAN CORPUSCULAR HEMOGLOBIN 30.4 pg (27.0-33.4); MEAN CORPUSCULAR HGB CONC 33.2 g/dL (32.0-36.0); MEAN CORPUSCULAR VOLUME 91 fl (80-97); PLATELET COUNT 200 10^3/uL (150-450); RED BLOOD COUNT 3.51 10^6/uL (4.35-5.55); RED CELL DISTRIBUTION WIDTH 15.1 % (11.5-14.0); WHITE BLOOD COUNT 16.1 10^3/uL (4.0-10.5)
[2019-03-30 05:23] LABS: ANION GAP 8 (5-19); BLOOD UREA NITROGEN 92 mg/dL (7-20); CALCIUM 8.7 mg/dL (8.4-10.2); CARBON DIOXIDE 31 mmol/L (22-30); CHLORIDE 109 mmol/L (98-107); GLUCOSE 121 mg/dL (75-110); POTASSIUM 3.8 mmol/L (3.6-5.0)
[2019-03-30 05:37] LABS: ABSOLUTE LYMPHOCYTES# (MANUAL) 0.8 10^3/uL (0.5-4.7); ABSOLUTE MONOCYTES # (MANUAL) 0.5 10^3/uL (0.1-1.4); ANISOCYTOSIS SLIGHT; BAND NEUTROPHILS % (MANUAL) 1 % (3-5); BASOPHILS % (MANUAL) 0 % (0-2); EOSINOPHILS % (MANUAL) 0 % (0-6); HYPOCHROMASIA SLIGHT; LYMPHOCYTES % (MANUAL) 5 % (13-45); MONOCYTES % (MANUAL) 3 % (3-13); NUCLEATED RED BLOOD CELLS 1 /100 WBC (0); PLATELET COMMENT ADEQUATE; SEGMENTED NEUTROPHILS % (MAN) 91 % (42-78); TOTAL CELLS COUNTED 100
[2019-03-30] MEDS: PROPOFOL 1,000 MG/100 ML INFUS..BTL IV PRN ×3 (08:01→20:23)
[2019-03-30] MEDS: METOPROLOL TARTRATE 50 MG TABLET NG SCH ×2 (09:29→21:25)
[2019-03-30] MEDS: GABAPENTIN 300 MG CAPSULE NG SCH ×2 (09:30→21:31)
[2019-03-30] MEDS: LEVOFLOXACIN 750 MG/D5W RTU 750 MG/150 ML RTUPB IV SCH (09:30)
[2019-03-30] MEDS: MEROPENEM 500 MG in NORMAL SALINE 50 ML IV SCH (09:30)
[2019-03-30] MEDS: INSULIN GLARGINE,HUM.REC.ANLOG 1,000 UNIT/10 ML VIAL SUBCUT SCH ×2 (09:30→17:18)
[2019-03-30] MEDS: LACTULOSE SYRUP 20 GM/30 ML UDCUP NG SCH (09:30)
[2019-03-30] MEDS: FAMOTIDINE INJ/PF 20 MG/2 ML SDV IV SCH (09:30)
[2019-03-30] MEDS: AMLODIPINE BESYLATE 10 MG TABLET PO SCH (09:30)
[2019-03-30] MEDS: 1/2 NORMAL SALINE 1,000 ML IV PRN (09:43)
[2019-03-30] MEDS: VANCOMYCIN HCL 1,500 MG in DEXTROSE 5%-WATER 250 ML IV SCH (11:16)
--- NOTE | 2019-03-30 11:33 | PDOC PROGRESS REPORT ---
Subjective Progress Note for:: 03/30/19 Subjective:: ICU Progress Note. Pt remains intubated and sedated. Has right pleural pigtail catheter inserted yesterday. Reason For Visit: ACUTE HYPOXIC RESPIRATORY FAILURE,ACUTE KIDNEY Physical Exam Vital Signs: Temp Pulse Resp BP Pulse Ox 98.7 F 68 15 133/57 H 90 L 03/30/19 10:00 03/30/19 10:00 03/30/19 10:18 03/30/19 10:18 03/30/19 10:18 Intake & Output 03/29/19 03/30/19 03/31/19 06:59 06:59 06:59 Intake Total 715 1691 1303 Output Total 2996 7345 2269 Balance -3577 -885 -462 Weight 111.2 kg 106.9 kg General appearance: PRESENT: no acute distress, well-developed, well-nourished, other - intubated, sedated Respiratory exam: PRESENT: decreased breath sounds, unlabored Cardiovascular exam: PRESENT: RRR GI/Abdominal exam: PRESENT: soft, other - non-tender, non-distended Gentrourinary exam: PRESENT: indwelling catheter Extremities exam: PRESENT: other - trace edema Neurological exam: PRESENT: other - sedated Results Laboratory Results: 03/30/19 04:58 03/30/19 04:58 03/29/19 03/29/19 03/30/19 04:05 12:35 04:58 WBC 16.1 H RBC 3.51 L Hgb 10.7 L Hct 32.1 L MCV 91 MCH 30.4 MCHC 33.2 RDW 15.1 H Plt Count 200 Seg Neutrophils % Not Reportable Sodium Potassium Chloride Carbon Dioxide Anion Gap BUN Creatinine Est GFR ( Amer) Glucose Calcium Magnesium Albumin 2.9 L Triglycerides 190 H 03/30/19 04:58 WBC RBC Hgb Hct MCV MCH MCHC RDW Plt Count Seg Neutrophils % Sodium 147.9 H Potassium 3.8 Chloride 109 H Carbon Dioxide 31 H Anion Gap 8 BUN 92 H Creatinine 2.37 H Est GFR ( Amer) 33 L Glucose 121 H Calcium 8.7 Magnesium 2.3 Albumin Triglycerides 03/28/19 09:30 Tracheal Aspirate Gram Stain - Final 03/26/19 12:30 Tracheal Aspirate Gram Stain - Final 03/26/19 12:30 Tracheal Aspirate Sputum Culture - Final Pseudomonas Aeruginosa Normal Brittnee Absent 03/20/19 03/20/19 03/20/19 02:40 02:40 07:06 Creatine Kinase 109 CK-MB (CK-2) 2.86 Cancelled Troponin I 0.040 Cancelled NT-Pro-B Natriuret Pep 4540 H 03/20/19 03/20/19 03/20/19 07:54 12:30 17:52 Creatine Kinase CK-MB (CK-2) 10.90 H Troponin I 0.648 1.770 3.420 NT-Pro-B Natriuret Pep 03/21/19 03/21/19 03/21/19 06:10 06:10 11:57 Creatine Kinase 353 H 258 H CK-MB (CK-2) 17.60 H Troponin I 5.350 NT-Pro-B Natriuret Pep 03/21/19 03/21/19 03/21/19 11:57 16:08 16:08 Creatine Kinase 232 H CK-MB (CK-2) 13.90 H 11.60 H Troponin I 4.320 4.530 NT-Pro-B Natriuret Pep 03/22/19 03/24/19 05:31 03:49 Creatine Kinase CK-MB (CK-2) Troponin I 3.240 3.270 NT-Pro-B Natriuret Pep Impressions: Vascular Ultrasound 03/21/19 07:41 IMPRESSION: NO DOPPLER EVIDENCE OF HEMODYNAMICALLY SIGNIFICANT RENAL ARTERY STENOSIS. Renal Ultrasound 03/22/19 00:00 IMPRESSION: No hydronephrosis Mild increased cortical echogenicity from medical renal disease Head CT 03/24/19 00:00 IMPRESSION: NO ACUTE INTRACRANIAL FINDINGS. EVIDENCE OF ACUTE STROKE: NO. KUB X-Ray 03/25/19 00:00 IMPRESSION: Nasogastric tube tip and side port in the stomach. Persistent left retrocardiac consolidation worrisome for pneumonia Chest CT 03/28/19 00:00 IMPRESSION: Persistent moderate to large bilateral pleural effusions with dense consolidation in the lung bases consistent with pneumonia. Thoracentesis Ultrasound 03/29/19 10:00 IMPRESSION: SUCCESSFUL PLACEMENT OF A RIGHT SIDED CHEST 8 [place] PIGTAIL TUBE USING ULTRASOUND GUIDANCE. Chest X-Ray 03/29/19 14:29 IMPRESSION: No pneumothorax. Residual left pleural effusion. Assessment & Plan - Diagnosis (1) Acute respiratory failure Qualifiers: Respiratory failure complication: unspecified whether with hypoxia or hypercapnia Qualified Code(s): J96.00 - Acute respiratory failure, unspecified whether with hypoxia or hypercapnia Is this a current diagnosis for this admission?: Yes (2) Pseudomonas pneumonia Qualifiers: Lung location: unspecified part of lung Is this a current diagnosis for this admission?: Yes (3) COPD with exacerbation Is this a current diagnosis for this admission?: Yes (4) Atrial flutter Is this a current diagnosis for this admission?: Yes (5) Acute kidney injury Is this a current diagnosis for this admission?: Yes (6) CKD (chronic kidney disease) stage 3, GFR 30-59 ml/min Is this a current diagnosis for this admission?: Yes (7) NSTEMI (non-ST elevated myocardial infarction) Is this a current diagnosis for this admission?: Yes (8) Diabetes Qualifiers: Diabetes mellitus type: type 2 Diabetes mellitus termination clerk insulin use: unspecified assisted insulin use status Chronic kidney disease stage: stage 3 (moderate) Is this a current diagnosis for this admission?: Yes (9) Pleural effusion Is this a current diagnosis for this admission?: Yes - Plan Summary Plan Summary: Assessment: Critically ill 68 yo man with acute respiratory failure, pseudomonas PNA, AECOPD, aflutter, HTN, NSTEMI, VIDYA, CKD, DM, pleural effusions Plan: 1. Respiratory: acute respiratory failure. Vent day 10. 2. Pulmonary: Pseudomonas PNA, COPD, possible ILD, large bilateral pleural effusions. ATBX Day 10. On vanc, meropenem, levaquin. s/p right pleural pigtail yesterday by IR. For left pleural pigtail today by IR. COPD, wean steroids. 3. CV: atrial flutter, rate controlled. NSTEMI due to demand ischemia. HTN. Continue lopressor, norvasc, and hydralazine. Off lasix 4. Renal:VIDYA,CKD stage 3. Cr is 2.33. Lasix stopped. 1/2 NS IVF for hypernatremia 5. ID: pseudomonas PNA. ATBX Day 10. Leukocytosis. Continue vanc, levaquin, and meropenem. 6. Endocrine: DM. lantus, SSI 7. Heme: eliquis on hold for placement of pleural pigtail catheters 8. F/E/N: tolerating tube feeds. Hypernatremia, continue free water flushes.and start 1/2 NS IVF. Constipation, will start lactulose 9. Disposition: pt will probably need trach and PEG. Will need LTAC. Case management has been consulted for LTAC placement. Critical care time= 40 min, excluding procedures
--- NOTE | 2019-03-30 15:03 | PDOC PROGRESS REPORT ---
Subjective Progress Note for:: 03/30/19 Reason For Visit: Patient seen in the ICU today. He remains intubated and sedated.Discussions were done with the treating nurse and freelance recruiter. Reviewed the respiratory settings. Vital signs shows slightly dropping blood pressures. Urine output is steady. Labs and medications were reviewed. His white count is rising with left shift. Renal numbers relatively stable. Physical Exam Vital Signs: Temp Pulse Resp BP Pulse Ox 98.1 F 79 18 131/62 H 91 L 03/30/19 12:00 03/30/19 12:45 03/30/19 12:45 03/30/19 12:00 03/30/19 12:45 Intake & Output 03/29/19 03/30/19 03/31/19 06:59 06:59 06:59 Intake Total 715 1691 1372 Output Total 2990 0 1999 Balance -2275 -359 -628 Weight 111.2 kg 106.9 kg Exam: Remains intubated and sedated. Respiratory exam: PRESENT: clear to auscultation zachariah, decreased breath sounds. ABSENT: crackles Cardiovascular exam: PRESENT: +S1, +S2 GI/Abdominal exam: PRESENT: normal bowel sounds, soft. ABSENT: organomegaly, tenderness Extremities exam: PRESENT: pedal edema Focused psych exam: PRESENT: psychomotor agitation Skin exam: ABSENT: cyanosis, erythema, mottled, rash Results Laboratory Results: 03/30/19 04:58 03/30/19 04:58 03/30/19 03/30/19 04:58 04:58 WBC 16.1 H RBC 3.51 L Hgb 10.7 L Hct 32.1 L MCV 91 MCH 30.4 MCHC 33.2 RDW 15.1 H Plt Count 200 Seg Neutrophils % Not Reportable Sodium 147.9 H Potassium 3.8 Chloride 109 H Carbon Dioxide 31 H Anion Gap 8 BUN 92 H Creatinine 2.37 H Est GFR ( Amer) 33 L Glucose 121 H Calcium 8.7 Magnesium 2.3 03/28/19 09:30 Tracheal Aspirate Gram Stain - Final 03/20/19 03/20/19 03/20/19 02:40 02:40 07:06 Creatine Kinase 109 CK-MB (CK-2) 2.86 Cancelled Troponin I 0.040 Cancelled NT-Pro-B Natriuret Pep 4540 H 03/20/19 03/20/19 03/20/19 07:54 12:30 17:52 Creatine Kinase CK-MB (CK-2) 10.90 H Troponin I 0.648 1.770 3.420 NT-Pro-B Natriuret Pep 03/21/19 03/21/19 03/21/19 06:10 06:10 11:57 Creatine Kinase 353 H 258 H CK-MB (CK-2) 17.60 H Troponin I 5.350 NT-Pro-B Natriuret Pep 03/21/19 03/21/19 03/21/19 11:57 16:08 16:08 Creatine Kinase 232 H CK-MB (CK-2) 13.90 H 11.60 H Troponin I 4.320 4.530 NT-Pro-B Natriuret Pep 03/22/19 03/24/19 05:31 03:49 Creatine Kinase CK-MB (CK-2) Troponin I 3.240 3.270 NT-Pro-B Natriuret Pep Impressions: Vascular Ultrasound 03/21/19 07:41 IMPRESSION: NO DOPPLER EVIDENCE OF HEMODYNAMICALLY SIGNIFICANT RENAL ARTERY STENOSIS. Renal Ultrasound 03/22/19 00:00 IMPRESSION: No hydronephrosis Mild increased cortical echogenicity from medical renal disease Head CT 03/24/19 00:00 IMPRESSION: NO ACUTE INTRACRANIAL FINDINGS. EVIDENCE OF ACUTE STROKE: NO. KUB X-Ray 03/25/19 00:00 IMPRESSION: Nasogastric tube tip and side port in the stomach. Persistent left retrocardiac consolidation worrisome for pneumonia Chest CT 03/28/19 00:00 IMPRESSION: Persistent moderate to large bilateral pleural effusions with dense consolidation in the lung bases consistent with pneumonia. Thoracentesis Ultrasound 03/29/19 10:00 IMPRESSION: SUCCESSFUL PLACEMENT OF A RIGHT SIDED CHEST 8 [place] PIGTAIL TUBE USING ULTRASOUND GUIDANCE. Chest X-Ray 03/29/19 14:29 IMPRESSION: No pneumothorax. Residual left pleural effusion. Assessment & Plan - Diagnosis (1) Acute hypoxemic respiratory failure Is this a current diagnosis for this admission?: Yes Plan: Remains intubated and sedated. Management as per freelance recruiter. Clinically euvolemic. Recommend cautious use of diuretics at the moment. (2) Acute kidney injury Is this a current diagnosis for this admission?: Yes Plan: Nonoliguric. Renal numbers are stable. However monitor hemodynamics closely given his rising white count. (3) COPD with exacerbation Is this a current diagnosis for this admission?: Yes Plan: As per freelance recruiter. (4) Sepsis Plan: Patient being treated for Pseudomonas pneumonia/bronchitis. Management as per freelance recruiter. (5) Diabetes 1.5, managed as type 2 Plan: As per freelance recruiter.
--- NOTE | 2019-03-30 16:23 | RADIOLOGY REPORT (SQ) ---
EXAM DESCRIPTION: U/S THORACENTESIS W/CHEST TUBE COMPLETED DATE/TIME: 03/30/2019 4:12 pm REASON FOR STUDY: pleural effusion COMPARISON: 03/29/2019 RADIATION DOSE: None LIMITATIONS: None. PROCEDURE: Procedure, risks, benefit, and alternative explained to patient who then gave written con sent. The left chest wall was marked using ultrasound guidance. A time-out was called for correct m arking verification. Chest prepped and draped using sterile technique. Local anesthesia achieved usi ng 10 ml of 1% lidocaine injection. A 18 gauge introducer needle was introduced into the left pleura l space. Fluid was aspirated. A 035 wire was introduced and the needle removed. The tract was dila ananda to 8 Spanish. An 8 Spanish pigtail catheter was advanced over the wire into the thoracic cavity. The wire and inner stiffener were removed and the pigtail formed in a standard fashion. The catheter was secured to the skin and hooked to a Pleur-Evac device. A sterile dressing was applied. Patient tolerated the procedure well. FINDINGS: Limited ultrasound imaging demonstrates moderate volume pleural effusion. IMPRESSION: Successful small bore left-sided chest tube placement utilizing ultrasound guidance as d etailed above. COMMENT: Patient medication list reviewed: Yes- Quality ID# [id number]:Eligible professional attests to doc umenting in the medical record they obtained, updated, or reviewed the patient's current medications. TECHNICAL DOCUMENTATION: JOB ID: [id number] [employer]- All Rights Reserved Reading location - IP/workstation name: [email or web address]
[2019-03-30 17:15] LABS: FLUID APPEARANCE SLIGHTLY HAZY; FLUID COLOR LIGHT YELLOW; FLUID SOURCE LUNG; FLUID TYPE PLEURAL; FLUID VISCOSITY LIQUID
[2019-03-30] MEDS: METHYLPREDNISOLONE INJ 40 MG/1 ML SDV IV SCH (17:18)
[2019-03-30] MEDS: MEROPENEM 1 GM in NORMAL SALINE 50 ML IV SCH (21:31)
--- NOTE | 2019-03-30 23:12 | Progress Note ---
Provider Note Provider Note: CARDIOLOGY PROGRESS NOTE by Dr. monk S1 on 03/2019. SUBJECTIVE: The patient is intubated and sedated, requiring still a lot of FiO2 to keep his O2 sats up. There is no recurrence of atrial fibrillation. There is no ventricular arrhythmia seen. The plan is to drain the left pleural effusion with the pigtail. PHYSICAL EXAMINATION: The patient is intubated and sedated. Selected Entries 03/30/19 14:00 Temperature 97.8 F Temperature Axillary Source Pulse Rate 63 Respiratory 15 Rate Blood Pressure 119/52 L [Left Upper Arm ] Blood Pressure 74 Mean [Left Upper Arm] Blood Pressure Supine Position [Left Upper Arm] Blood Pressure 119 Systolic [Left Upper Arm] O2 Sat by Pulse 93 Oximetry Oxygen Delivery Mechanical Method ( Ventilator includes room air) Percent of 90 Oxygen HEAD: Is atraumatic. Normocephalic. EYES: Pupils are equal round reactive to light. ENT is negative. NECK: Supple. There is no JVD. There is mild accessory muscle respiration use. Trachea central. LUNGS: There is diminished air entry and prolonged expiration. On percussion there is hyperresonance. The right lung is otherwise clear, except for a few scattered rhonchi. There is absent breath sounds and dullness in the left base.. HEART: S1-S2 is heard. There is no S3 gallop. There is no S4 gallop there is systolic murmur in the left sternal border and the apex there is no rub. ABDOMEN: Is obese. There is no hepatospleno megaly. Bowel sounds well heard. EXTREMITIES: Femorals are diminished there is no femoral bruits. Leg pulses are diminished. There is trace pedal edema in the right lower extremity. There is no DVT or cellulitis. There is no calf tenderness. There is no cyanosis or clubbing. EDITORIAL MANAGER and PSYCHIATRIC: Not examined due to patient being intubated and sedated. Labs- All tests 24 hr 03/29/19 03/30/19 03/30/19 23:39 04:58 04:58 WBC 16.1 H RBC 3.51 L Hgb 10.7 L Hct 32.1 L MCV 91 MCH 30.4 MCHC 33.2 RDW 15.1 H Plt Count 200 Lymph % (Auto) Not Reportable [place] % (Auto) Not Reportable Eos % (Auto) Not Reportable Baso % (Auto) Not Reportable Absolute Neuts (auto) Not Reportable Absolute Lymphs (auto) Not Reportable Absolute Monos (auto) Not Reportable Absolute Eos (auto) Not Reportable Absolute Basos (auto) Not Reportable Total Counted 100 Seg Neutrophils % Not Reportable Seg Neuts % (Manual) 91 H Band Neutrophils % 1 L Lymphocytes % (Manual) 5 L Monocytes % (Manual) 3 Eosinophils % (Manual) 0 Basophils % (Manual) 0 Abs Neuts (Manual) 14.8 H Abs Lymphs (Manual) 0.8 Abs Monocytes (Manual) 0.5 Absolute Eos (Manual) 0.0 Abs Basophils (Manual) 0.0 Nucleated RBCs 1 Platelet Comment ADEQUATE Hypochromasia SLIGHT Anisocytosis SLIGHT Sodium 147.9 H Potassium 3.8 Chloride 109 H Carbon Dioxide 31 H Anion Gap 8 BUN 92 H Creatinine 2.37 H Est GFR ( Amer) 33 L Est GFR (MDRD) Non-Af 28 L Glucose 121 H POC Glucose 146 H Calcium 8.7 Magnesium 2.3 Lactate Dehydrogenase Fluid Type Fluid Source Fluid Color Fluid Appearance Fluid Viscosity Fluid WBC Fluid RBC Fluid Seg Neutrophils Fluid Lymphocytes Fluid Monocytes Fluid Eosinophils Fluid Basophils 03/30/19 03/30/19 03/30/19 06:10 13:36 15:04 WBC RBC Hgb Hct MCV MCH MCHC RDW Plt Count Lymph % (Auto) [place] % (Auto) Eos % (Auto) Baso % (Auto) Absolute Neuts (auto) Absolute Lymphs (auto) Absolute Monos (auto) Absolute Eos (auto) Absolute Basos (auto) Total Counted Seg Neutrophils % Seg Neuts % (Manual) Band Neutrophils % Lymphocytes % (Manual) Monocytes % (Manual) Eosinophils % (Manual) Basophils % (Manual) Abs Neuts (Manual) Abs Lymphs (Manual) Abs Monocytes (Manual) Absolute Eos (Manual) Abs Basophils (Manual) Nucleated RBCs Platelet Comment Hypochromasia Anisocytosis Sodium Potassium Chloride Carbon Dioxide Anion Gap BUN Creatinine Est GFR ( Amer) Est GFR (MDRD) Non-Af Glucose POC Glucose 131 H 245 H Calcium Magnesium Lactate Dehydrogenase 222 Fluid Type Fluid Source Fluid Color Fluid Appearance Fluid Viscosity Fluid WBC Fluid RBC Fluid Seg Neutrophils Fluid Lymphocytes Fluid Monocytes Fluid Eosinophils Fluid Basophils 03/30/19 03/30/19 16:00 17:14 WBC RBC Hgb Hct MCV MCH MCHC RDW Plt Count Lymph % (Auto) [place] % (Auto) Eos % (Auto) Baso % (Auto) Absolute Neuts (auto) Absolute Lymphs (auto) Absolute Monos (auto) Absolute Eos (auto) Absolute Basos (auto) Total Counted Seg Neutrophils % Seg Neuts % (Manual) Band Neutrophils % Lymphocytes % (Manual) Monocytes % (Manual) Eosinophils % (Manual) Basophils % (Manual) Abs Neuts (Manual) Abs Lymphs (Manual) Abs Monocytes (Manual) Absolute Eos (Manual) Abs Basophils (Manual) Nucleated RBCs Platelet Comment Hypochromasia Anisocytosis Sodium Potassium Chloride Carbon Dioxide Anion Gap BUN Creatinine Est GFR ( Amer) Est GFR (MDRD) Non-Af Glucose POC Glucose 234 H Calcium Magnesium Lactate Dehydrogenase Fluid Type PLEURAL Fluid Source LUNG Fluid Color LIGHT YELLOW Fluid Appearance SLIGHTLY HAZY Fluid Viscosity LIQUID Fluid WBC 48 Fluid RBC 58 Fluid Seg Neutrophils 16 Fluid Lymphocytes 72 Fluid Monocytes 12 Fluid Eosinophils 0 Fluid Basophils 0 Chest X-Ray 03/20/19 00:00 IMPRESSION: Worsening congestive failure with interstitial pulmonary edema. Chest X-Ray 03/20/19 00:00 IMPRESSION: Endotracheal tube is in place. Moderate pulmonary edema. Findings correlate from prior study. Chest X-Ray 03/20/19 02:37 IMPRESSION: Mild increased reticular interstitial changes may all be chronic in nature but cannot exclude minimal edema or atypical pneumonia. Correlation with an old exam or short-term follow-up will be useful. Vascular Ultrasound 03/21/19 07:41 IMPRESSION: NO DOPPLER EVIDENCE OF HEMODYNAMICALLY SIGNIFICANT RENAL ARTERY STENOSIS. Chest CT 03/21/19 13:00 IMPRESSION: 1. Findings most compatible CHF with moderate bilateral pleural effusions and bibasilar consolidation, likely atelectasis. Interlobular and septal thickening and patchy ground-glass attenuation, likely edema although superimposed infection is not entirely excluded. 2. Cardiomegaly. Coronary atherosclerosis. 3. Endotracheal tube within the midthoracic trachea. Chest X-Ray 03/22/19 00:00 IMPRESSION: Endotracheal tube, nasogastric tube in good positioning of the 2nd film. Unchanged bilateral pleural effusions with bibasilar airspace disease Renal Ultrasound 03/22/19 00:00 IMPRESSION: No hydronephrosis Mild increased cortical echogenicity from medical renal disease KUB X-Ray 03/23/19 15:17 IMPRESSION: THE TIP OF THE NASOGASTRIC TUBE IN THE STOMACH. NO RADIOGRAPHIC EVIDENCE FOR ACUTE ABDOMINAL DISEASE. Head CT 03/24/19 00:00 IMPRESSION: NO ACUTE INTRACRANIAL FINDINGS. EVIDENCE OF ACUTE STROKE: NO. Chest X-Ray 03/25/19 00:00 IMPRESSION: Moderate bilateral pleural effusions, left retrocardiac consolidation Endotracheal tube tip 5 cm above the ness KUB X-Ray 03/25/19 00:00 IMPRESSION: Nasogastric tube tip and side port in the stomach. Persistent left retrocardiac consolidation worrisome for pneumonia Chest X-Ray 03/26/19 00:00 IMPRESSION: Bilateral pleural effusions have increased. Airspace disease left lower lobe, consolidation versus atelectasis. Chest X-Ray 03/27/19 06:00 IMPRESSION: Unchanged radiographic appearance of the chest as detailed above. Chest CT 03/28/19 00:00 IMPRESSION: Persistent moderate to large bilateral pleural effusions with dense consolidation in the lung bases consistent with pneumonia. Chest X-Ray 03/28/19 00:00 IMPRESSION: Endotracheal tube is been advanced as described. It now lies 5.2 cm above the ness. No other significant change. Chest X-Ray 03/28/19 07:56 IMPRESSION: Endotracheal tube has been repositioned as described. No other interval change. Chest X-Ray 03/29/19 06:00 IMPRESSION: Interval improvement in lung volumes with persistent layering pleural effusions and associated atelectasis or consolidation. No new airspace opacity. Unchanged support apparatus including endotracheal tube. Cardiomegaly. Thoracentesis Ultrasound 03/29/19 10:00 IMPRESSION: SUCCESSFUL PLACEMENT OF A RIGHT SIDED CHEST 8 [place] PIGTAIL TUBE USING ULTRASOUND GUIDANCE. IMPRESSION/RECOMMENDATION: 1. Acute on probably chronic respiratory failure: Continue ventilators, continue antibiotics. 2. COPD: Continue ventilator support. Continue bronchodilators and antibiot ics. 3. Elevated troponin I: Non-ST elevation [place] versus secondary to supply demand mismatch. Agree with stopping the patient's IV heparin since her troponin is trending down. Later would recommend that the patient have a IV Lexiscan Cardiolite stress test.. Will recheck troponin I and EKG in the a.m. 4. Acute on chronic kidney disease. The patient's current baseline CKD stage III. At present stage IV. Avoid nephrotoxic drugs. 5. Bilateral lower lobe pneumonia with consolidation and most likely para- pneumonic effusions: Continue antibiotics. The patient had a pigtail inserted into the right pleural cavity with drainage of fluid. There is almost no pleural fluid on the right side. There is still left pleural effusion and consolidation present. Strongly recommend pleural fluid analysis to differentiate exudate versus transudate. The plan is to introduce a pigtail into the left pleural cavity with draining of the left pleural effusion. Strongly recommend sending pleural fluid for analysis. 6.Hypotension: Resolved. Patient blood pressure is very high. Patient has been started him on triple enteral antihypertensives. 7. History of hypertension: At present patient blood pressure is very high. 8. Diabetes mellitus: Continue insulin as per blood sugar checks. 9. Possible interstitial lung disease.: The CT scan is reported as findings which did not support ILD. But will discuss with radiology. 10. Episodic heart failure secondary to hypertensive blood pressure spikes. Note that the patient's LV ejection fraction is normal. 11. Peripheral vascular disease as per history.
[2019-03-31] MEDS: FENTANYL CITRATE/PF 600 MCG/60 ML BAG IV PRN ×2 (00:50→06:20)
[2019-03-31] MEDS: ALBUTEROL SULFATE 0.042% NEB (1.25 MG/3 ML) AMPUL NEB SCH ×5 (01:00→16:26)
[2019-03-31] MEDS: PROPOFOL 1,000 MG/100 ML INFUS..BTL IV PRN (04:00)
[2019-03-31 04:18] LABS: HEMATOCRIT 33.1 % (37.9-51.0); HEMOGLOBIN 10.9 g/dL (13.5-17.0); MEAN CORPUSCULAR HEMOGLOBIN 30.4 pg (27.0-33.4); MEAN CORPUSCULAR HGB CONC 32.9 g/dL (32.0-36.0); MEAN CORPUSCULAR VOLUME 92 fl (80-97); PLATELET COUNT 169 10^3/uL (150-450); RED BLOOD COUNT 3.58 10^6/uL (4.35-5.55); RED CELL DISTRIBUTION WIDTH 14.8 % (11.5-14.0)
[2019-03-31 04:36] LABS: ANION GAP 10 (5-19); BLOOD UREA NITROGEN 106 mg/dL (7-20); CALCIUM 8.4 mg/dL (8.4-10.2); CARBON DIOXIDE 29 mmol/L (22-30); CHLORIDE 106 mmol/L (98-107); GLUCOSE 195 mg/dL (75-110)
[2019-03-31 04:40] LABS: ABSOLUTE LYMPHOCYTES# (MANUAL) 1.4 10^3/uL (0.5-4.7); ABSOLUTE MONOCYTES # (MANUAL) 0.5 10^3/uL (0.1-1.4); ANISOCYTOSIS SLIGHT; BAND NEUTROPHILS % (MANUAL) 1 % (3-5); BASOPHILS % (MANUAL) 0 % (0-2); EOSINOPHILS % (MANUAL) 0 % (0-6); LYMPHOCYTES % (MANUAL) 9 % (13-45); MONOCYTES % (MANUAL) 3 % (3-13); PLATELET COMMENT ADEQUATE; SEGMENTED NEUTROPHILS % (MAN) 87 % (42-78); TOTAL CELLS COUNTED 100
[2019-03-31] MEDS: METHYLPREDNISOLONE INJ 40 MG/1 ML SDV IV SCH (05:20)
[2019-03-31] MEDS: INSULIN LISPRO 100 UNIT/ML 3 ML VIAL SUBCUT SCH ×3 (05:20→18:06)
--- NOTE | 2019-03-31 08:53 | PDOC PROGRESS REPORT ---
Subjective Progress Note for:: 03/31/19 Reason For Visit: ACUTE HYPOXIC RESPIRATORY FAILURE,ACUTE KIDNEY Physical Exam Vital Signs: Temp Pulse Resp BP Pulse Ox 98.4 F 72 15 155/74 H 92 03/31/19 03:39 03/31/19 08:00 03/31/19 08:00 03/31/19 07:38 03/31/19 08:00 Intake & Output 03/30/19 03/31/19 04/01/19 06:59 06:59 06:59 Intake Total 1691 2302 57 Output Total 1854 4523 Balance -359 -4549 57 Weight 106.9 kg 107.9 kg General appearance: PRESENT: no acute distress, well-developed, well-nourished, other - intubated sedated Head exam: PRESENT: atraumatic, normocephalic Respiratory exam: PRESENT: decreased breath sounds, tachypnea Cardiovascular exam: PRESENT: RRR GI/Abdominal exam: PRESENT: soft, other - non-tender, non-distended Gentrourinary exam: PRESENT: indwelling catheter Extremities exam: PRESENT: other - trace edema Neurological exam: PRESENT: other - sedated but arousable Results Laboratory Results: 03/31/19 03:48 03/31/19 03:48 03/30/19 03/31/19 03/31/19 16:00 03:48 03:48 WBC 15.0 H RBC 3.58 L Hgb 10.9 L Hct 33.1 L MCV 92 MCH 30.4 MCHC 32.9 RDW 14.8 H Plt Count 169 Seg Neutrophils % Not Reportable Sodium 145.2 H Potassium 4.0 Chloride 106 Carbon Dioxide 29 Anion Gap 10 BUN 106 H Creatinine 2.48 H Est GFR ( Amer) 32 L Glucose 195 H Calcium 8.4 Magnesium 2.6 H Fluid Type PLEURAL Fluid Source LUNG Fluid Color LIGHT YELLOW Fluid Appearance SLIGHTLY HAZY Fluid Viscosity LIQUID Fluid WBC 48 Fluid RBC 58 03/28/19 09:30 Tracheal Aspirate Gram Stain - Final 03/20/19 03/20/19 03/20/19 02:40 02:40 07:06 Creatine Kinase 109 CK-MB (CK-2) 2.86 Cancelled Troponin I 0.040 Cancelled NT-Pro-B Natriuret Pep 4540 H 03/20/19 03/20/19 03/20/19 07:54 12:30 17:52 Creatine Kinase CK-MB (CK-2) 10.90 H Troponin I 0.648 1.770 3.420 NT-Pro-B Natriuret Pep 03/21/19 03/21/19 03/21/19 06:10 06:10 11:57 Creatine Kinase 353 H 258 H CK-MB (CK-2) 17.60 H Troponin I 5.350 NT-Pro-B Natriuret Pep 03/21/19 03/21/19 03/21/19 11:57 16:08 16:08 Creatine Kinase 232 H CK-MB (CK-2) 13.90 H 11.60 H Troponin I 4.320 4.530 NT-Pro-B Natriuret Pep 03/22/19 03/24/19 05:31 03:49 Creatine Kinase CK-MB (CK-2) Troponin I 3.240 3.270 NT-Pro-B Natriuret Pep Impressions: Vascular Ultrasound 03/21/19 07:41 IMPRESSION: NO DOPPLER EVIDENCE OF HEMODYNAMICALLY SIGNIFICANT RENAL ARTERY STENOSIS. Renal Ultrasound 03/22/19 00:00 IMPRESSION: No hydronephrosis Mild increased cortical echogenicity from medical renal disease Head CT 03/24/19 00:00 IMPRESSION: NO ACUTE INTRACRANIAL FINDINGS. EVIDENCE OF ACUTE STROKE: NO. KUB X-Ray 03/25/19 00:00 IMPRESSION: Nasogastric tube tip and side port in the stomach. Persistent left retrocardiac consolidation worrisome for pneumonia Chest CT 03/28/19 00:00 IMPRESSION: Persistent moderate to large bilateral pleural effusions with dense consolidation in the lung bases consistent with pneumonia. Chest X-Ray 03/29/19 14:29 IMPRESSION: No pneumothorax. Residual left pleural effusion. Thoracentesis Ultrasound 03/30/19 00:00 IMPRESSION: Successful small bore left-sided chest tube placement utilizing ult rasound guidance as detailed above. Assessment & Plan - Diagnosis (1) Acute respiratory failure Qualifiers: Respiratory failure complication: unspecified whether with hypoxia or hypercapnia Qualified Code(s): J96.00 - Acute respiratory failure, unspecified whether with hypoxia or hypercapnia Is this a current diagnosis for this admission?: Yes (2) Pseudomonas pneumonia Qualifiers: Lung location: unspecified part of lung Is this a current diagnosis for this admission?: Yes (3) COPD with exacerbation Is this a current diagnosis for this admission?: Yes (4) Atrial flutter Is this a current diagnosis for this admission?: Yes (5) Acute kidney injury Is this a current diagnosis for this admission?: Yes (6) CKD (chronic kidney disease) stage 3, GFR 30-59 ml/min Is this a current diagnosis for this admission?: Yes (7) NSTEMI (non-ST elevated myocardial infarction) Is this a current diagnosis for this admission?: Yes (8) Diabetes Qualifiers: Diabetes mellitus type: type 2 Diabetes mellitus emt intermediate insulin use: unspecified fpc insulin use status Chronic kidney disease stage: stage 3 (moderate) Is this a current diagnosis for this admission?: Yes (9) Pleural effusion Is this a current diagnosis for this admission?: Yes - Time Time Spent with patient: 35 or more minutes Total Critical Time (Minutes): 40 Medications reviewed and adjusted accordingly: Yes Anticipated discharge: Other - LTAC Within: Other - Plan Summary Plan Summary: Assessment: Critically ill 68 yo man with acute respiratory failure, pseudomonas PNA, AECOPD, aflutter, HTN, NSTEMI, VIDYA, CKD, DM, pleural effusions Plan: 1. Respiratory: acute respiratory failure. Vent day 11. Pt is on 35% FIO2 and PEEP 5. Will attempt an SBT today. 2. Pulmonary: Pseudomonas PNA, COPD, possible ILD, large bilateral pleural effusions. ATBX Day 11. On vanc, meropenem, levaquin. s/p right pleural pigtail 03/29 and left pleural pigtail on 03/30 by radiology. COPD, wean steroids. 3. CV: atrial flutter, resolved. Pt in NSR. NSTEMI due to demand ischemia. HTN. Continue lopressor, norvasc. 4. Renal:VIDYA,CKD stage 3. Cr is 2.48. Lasix stopped. 1/2 NS IVF for hypernatremia 5. ID: pseudomonas PNA. ATBX Day 11. Leukocytosis, resolving. Continue vanc, levaquin, and meropenem. 6. Endocrine: DM. lantus, SSI 7. Heme: resume eliquis 8. F/E/N: tolerating tube feeds. Hypernatremia, continue free water flushes and 1/2 NS IVF. Constipation, pt has had BM. Continue lactulose prn 9. Disposition: pt will probably need trach and PEG. Will need LTAC. Case management has been consulted for LTAC placement. Critical care time= 40 min, excluding procedures
--- NOTE | 2019-03-31 09:17 | Progress Note ---
Provider Note Provider Note: Pt is awake, alert, following commands. Has done well on his SBT. Will extubate.
[2019-03-31] MEDS: 1/2 NORMAL SALINE 1,000 ML IV PRN (09:22)
[2019-03-31] MEDS: AMLODIPINE BESYLATE 10 MG TABLET PO SCH (11:02)
[2019-03-31] MEDS: GABAPENTIN 300 MG CAPSULE NG SCH ×2 (11:02→22:36)
[2019-03-31] MEDS: METOPROLOL TARTRATE 50 MG TABLET NG SCH ×2 (11:02→22:36)
[2019-03-31] MEDS: FAMOTIDINE INJ/PF 20 MG/2 ML SDV IV SCH (11:03)
[2019-03-31] MEDS: MEROPENEM 1 GM in NORMAL SALINE 50 ML IV SCH ×2 (11:03→22:37)
[2019-03-31] MEDS: LACTULOSE SYRUP 20 GM/30 ML UDCUP NG SCH (11:03)
[2019-03-31] MEDS: INSULIN GLARGINE,HUM.REC.ANLOG 1,000 UNIT/10 ML VIAL SUBCUT SCH ×2 (11:22→18:32)
[2019-03-31] MEDS: APIXABAN 2.5 MG TABLET PO SCH ×2 (11:26→18:20)
[2019-03-31 12:41] LABS: VANCOMYCIN,TROUGH 25.3 ug/mL (5.0-20.0)
[2019-03-31] MEDS: VANCOMYCIN HCL 1,500 MG in DEXTROSE 5%-WATER 250 ML IV SCH (12:41)
[2019-03-31] MEDS ORDERED: ALBUTEROL SULFATE 0.042% NEB (1.25 MG/3 ML) AMPUL NEB PRN (17:20)
[2019-03-31] MEDS: DEXTROSE 5%-1/2 NORMAL SALINE 1,000 ML IV PRN (19:00)
[2019-03-31] MEDS ORDERED: ONDANSETRON HCL INJ/PF 4 MG/2 ML SDV ONE (21:06)
[2019-03-31] MEDS: ONDANSETRON HCL INJ/PF 4 MG/2 ML SDV IV PRN (21:15)
--- NOTE | 2019-03-31 22:09 | Progress Note ---
Provider Note Provider Note: CARDIOLOGY PROGRESS NOTE by Dr. Simran Lisa on 03/31/2019. SUBJECTIVE: The patient has been extubated. He is on nasal BiPAP. He denies any chest pain or discomfort. There is no PND orthopnea. There is no recurrence of atrial fibrillation. There is no further seen. There is no TIA CVA symptoms. The patient has tolerated bilateral pigtails and his pleural cavity on both sides. There is no leg edema. Pleural fluid analysis still awaited. PHYSICAL EXAMINATION:: The patient is mildly obese. In no acute distress. Selected Entries 03/31/19 03/31/19 03/31/19 15:42 16:00 16:28 Temperature 99.3 F Temperature Axillary Source Heart Rate ( 76 Monitors) Respiratory 17 22 H Rate Blood Pressure 122/81 Blood Pressure 94 Mean O2 Sat by Pulse 87 L 93 Oximetry Oxygen Delivery Nasal Cannula Method ( includes room air) Oxygen Flow 45 Rate 03/31/19 03/31/19 03/31/19 16:41 16:42 17:00 Temperature Temperature Source Heart Rate ( 76 Monitors) Respiratory 22 H Rate Blood Pressure 159/65 H Blood Pressure 96 Mean O2 Sat by Pulse Oximetry Oxygen Delivery Method ( includes room air) Oxygen Flow Rate HEAD: Is atraumatic. Normocephalic. EYES: Pupils are equal round reactive to light. ENT is negative. NECK: Supple. There is no JVD. There is mild accessory muscle respiration use. Trachea central. LUNGS: There is diminished air entry and prolonged expiration. On percussion there is hyperresonance. The right lung is otherwise clear, except for a few scattered rhonchi. There is absent breath sounds and dullness in the left base.. HEART: S1-S2 is heard. There is no S3 gallop. There is no S4 gallop there is systolic murmur in the left sternal border and the apex there is no rub. ABDOMEN: Is obese. There is no hepatospleno megaly. Bowel sounds well heard. EXTREMITIES: Femorals are diminished there is no femoral bruits. Leg pulses are diminished. There is trace pedal edema in the right lower extremity. There is no DVT or cellulitis. There is no calf tenderness. DREDGING INSPECTOR: The patient is conscious awake alert oriented x3 with no focal deficits. PSYCHIATRIC: Patient's judgment insight are intact her affect is normal. Labs- All tests 24 hr 03/30/19 03/31/19 03/31/19 23:24 03:48 03:48 WBC 15.0 H RBC 3.58 L Hgb 10.9 L Hct 33.1 L MCV 92 MCH 30.4 MCHC 32.9 RDW 14.8 H Plt Count 169 Lymph % (Auto) Not Reportable Duval % (Auto) Not Reportable Eos % (Auto) Not Reportable Baso % (Auto) Not Reportable Absolute Neuts (auto) Not Reportable Absolute Lymphs (auto) Not Reportable Absolute Monos (auto) Not Reportable Absolute Eos (auto) Not Reportable Absolute Basos (auto) Not Reportable Total Counted 100 Seg Neutrophils % Not Reportable Seg Neuts % (Manual) 87 H Band Neutrophils % 1 L Lymphocytes % (Manual) 9 L Monocytes % (Manual) 3 Eosinophils % (Manual) 0 Basophils % (Manual) 0 Abs Neuts (Manual) 13.2 H Abs Lymphs (Manual) 1.4 Abs Monocytes (Manual) 0.5 Absolute Eos (Manual) 0.0 Abs Basophils (Manual) 0.0 Platelet Comment ADEQUATE Anisocytosis SLIGHT Sodium 145.2 H Potassium 4.0 Chloride 106 Carbon Dioxide 29 Anion Gap 10 BUN 106 H Creatinine 2.48 H Est GFR ( Amer) 32 L Est GFR (MDRD) Non-Af 26 L Glucose 195 H POC Glucose 228 H Calcium 8.4 Magnesium 2.6 H Time Trough Drawn Vancomycin Trough 03/31/19 03/31/19 03/31/19 05:15 10:52 11:36 WBC RBC Hgb Hct MCV MCH MCHC RDW Plt Count Lymph % (Auto) Duval % (Auto) Eos % (Auto) Baso % (Auto) Absolute Neuts (auto) Absolute Lymphs (auto) Absolute Monos (auto) Absolute Eos (auto) Absolute Basos (auto) Total Counted Seg Neutrophils % Seg Neuts % (Manual) Band Neutrophils % Lymphocytes % (Manual) Monocytes % (Manual) Eosinophils % (Manual) Basophils % (Manual) Abs Neuts (Manual) Abs Lymphs (Manual) Abs Monocytes (Manual) Absolute Eos (Manual) Abs Basophils (Manual) Platelet Comment Anisocytosis Sodium Potassium Chloride Carbon Dioxide Anion Gap BUN Creatinine Est GFR ( Amer) Est GFR (MDRD) Non-Af Glucose POC Glucose 204 H 173 H Calcium Magnesium Time Trough Drawn 1136 Vancomycin Trough 25.3 H 03/31/19 03/31/19 03/31/19 17:51 18:51 21:04 WBC RBC Hgb Hct MCV MCH MCHC RDW Plt Count Lymph % (Auto) Duval % (Auto) Eos % (Auto) Baso % (Auto) Absolute Neuts (auto) Absolute Lymphs (auto) Absolute Monos (auto) Absolute Eos (auto) Absolute Basos (auto) Total Counted Seg Neutrophils % Seg Neuts % (Manual) Band Neutrophils % Lymphocytes % (Manual) Monocytes % (Manual) Eosinophils % (Manual) Basophils % (Manual) Abs Neuts (Manual) Abs Lymphs (Manual) Abs Monocytes (Manual) Absolute Eos (Manual) Abs Basophils (Manual) Platelet Comment Anisocytosis Sodium Potassium Chloride Carbon Dioxide Anion Gap BUN Creatinine Est GFR ( Amer) Est GFR (MDRD) Non-Af Glucose POC Glucose 71 64 L 77 Calcium Magnesium Time Trough Drawn Vancomycin Trough Chest X-Ray 03/20/19 00:00 IMPRESSION: Worsening congestive failure with interstitial pulmonary edema. Chest X-Ray 03/20/19 00:00 IMPRESSION: Endotracheal tube is in place. Moderate pulmonary edema. Findings correlate from prior study. Chest X-Ray 03/20/19 02:37 IMPRESSION: Mild increased reticular interstitial changes may all be chronic in nature but cannot exclude minimal edema or atypical pneumonia. Correlation with an old exam or short-term follow-up will be useful. Vascular Ultrasound 03/21/19 07:41 IMPRESSION: NO DOPPLER EVIDENCE OF HEMODYNAMICALLY SIGNIFICANT RENAL ARTERY STENOSIS. Chest CT 03/21/19 13:00 IMPRESSION: 1. Findings most compatible CHF with moderate bilateral pleural effusions and bibasilar consolidation, likely atelectasis. Interlobular and septal thickening and patchy ground-glass attenuation, likely edema although superimposed infection is not entirely excluded. 2. Cardiomegaly. Coronary atherosclerosis. 3. Endotracheal tube within the midthoracic trachea. Chest X-Ray 03/22/19 00:00 IMPRESSION: Endotracheal tube, nasogastric tube in good positioning of the 2nd film. Unchanged bilateral pleural effusions with bibasilar airspace disease Renal Ultrasound 03/22/19 00:00 IMPRESSION: No hydronephrosis Mild increased cortical echogenicity from medical renal disease KUB X-Ray 03/23/19 15:17 IMPRESSION: THE TIP OF THE NASOGASTRIC TUBE IN THE STOMACH. NO RADIOGRAPHIC EVIDENCE FOR ACUTE ABDOMINAL DISEASE. Head CT 03/24/19 00:00 IMPRESSION: NO ACUTE INTRACRANIAL FINDINGS. EVIDENCE OF ACUTE STROKE: NO. Chest X-Ray 03/25/19 00:00 IMPRESSION: Moderate bilateral pleural effusions, left retrocardiac consolidation Endotracheal tube tip 5 cm above the ness KUB X-Ray 03/25/19 00:00 IMPRESSION: Nasogastric tube tip and side port in the stomach. Persistent left retrocardiac consolidation worrisome for pneumonia Chest X-Ray 03/26/19 00:00 IMPRESSION: Bilateral pleural effusions have increased. Airspace disease left lower lobe, consolidation versus atelectasis. Chest X-Ray 03/27/19 06:00 IMPRESSION: Unchanged radiographic appearance of the chest as detailed above. Chest CT 03/28/19 00:00 IMPRESSION: Persistent moderate to large bilateral pleural effusions with dense consolidation in the lung bases consistent with pneumonia. Chest X-Ray 03/28/19 00:00 IMPRESSION: Endotracheal tube is been advanced as described. It now lies 5.2 cm above the ness. No other significant change. Chest X-Ray 03/28/19 07:56 IMPRESSION: Endotracheal tube has been repositioned as described. No other in terval change. Chest X-Ray 03/29/19 06:00 IMPRESSION: Interval improvement in lung volumes with persistent layering pleural effusions and associated atelectasis or consolidation. No new airspace opacity. Unchanged support apparatus including endotracheal tube. Cardiomegaly. Thoracentesis Ultrasound 03/29/19 10:00 IMPRESSION: SUCCESSFUL PLACEMENT OF A RIGHT SIDED CHEST 8 IRISH PIGTAIL TUBE USING ULTRASOUND GUIDANCE. Chest X-Ray 03/29/19 14:29 IMPRESSION: No pneumothorax. Residual left pleural effusion. Thoracentesis Ultrasound 03/30/19 00:00 IMPRESSION: Successful small bore left-sided chest tube placement utilizing ultrasound guidance as detailed above. IMPRESSION/RECOMMENDATION: 1. Acute on probably chronic respiratory failure: This is resolved. The patient has been extubated. Initially his O2 sats was slightly low but they have come back up to normal. Continue antibiotics. 2. COPD: Continue ventilator support. Continue bronchodilators and antibiotics. 3. Elevated troponin I: Non-ST elevation ND versus secondary to supply demand m ismatch. Agree with stopping the patient's IV heparin since her troponin is trending down. Later would recommend that the patient have a IV Lexiscan Cardiolite stress test.. Will recheck troponin I and EKG in the a.m. 4. Acute on chronic kidney disease. The patient's current baseline CKD stage III. At present stage IV. Avoid nephrotoxic drugs. 5. Bilateral lower lobe pneumonia with consolidation and most likely para- pneumonic effusions: Continue antibiotics. The patient had a pigtail inserted into the right pleural cavity with drainage of fluid. There is almost no pleural fluid on the right side. There is still left pleural effusion and consolidation present. Strongly recommend pleural fluid analysis to differentiate exudate versus transudate. The plan is to introduce a pigtail into the left pleural cavity with draining of the left pleural effusion. Strongly recommend sending pleural fluid for analysis. 6.Hypotension: Resolved. Patient blood pressure is very high. Patient has been started him on triple enteral antihypertensives. 7. History of hypertension: At present patient blood pressure is very high. 8. Diabetes mellitus: Continue insulin as per blood sugar checks. 9. Possible interstitial lung disease.: The CT scan is reported as findings which did not support ILD. But will discuss with radiology. 10. Episodic heart failure secondary to hypertensive blood pressure spikes. Note that the patient's LV ejection fraction is normal. 11. Peripheral vascular disease as per history. MEDICATIONS reviewed. Medications and management plan discussed with the distribution accounting clerk. Medical decision making is of moderate complexity. 40 minutes spent on this patient more than 50% of time spent in direct patient care. Will follow
[2019-04-01] MEDS: INSULIN LISPRO 100 UNIT/ML 3 ML VIAL SUBCUT SCH ×4 (01:07→18:37)
[2019-04-01 05:20] LABS: ABSOLUTE EOSINOPHILS # (AUTO) 0.1 10^3/uL (0.0-0.6); ABSOLUTE MONOCYTES (AUTO) 1.2 10^3/uL (0.1-1.4); ABSOLUTE NEUT (AUTO) 9.5 10^3/uL (1.7-8.2); BASOPHILS % (AUTO) 0.3 % (0-2); HEMATOCRIT 29.5 % (37.9-51.0); HEMOGLOBIN 9.5 g/dL (13.5-17.0); LYMPHOCYTES % (AUTO) 8.9 % (13-45); MEAN CORPUSCULAR HEMOGLOBIN 30.3 pg (27.0-33.4); MEAN CORPUSCULAR HGB CONC 32.3 g/dL (32.0-36.0); MEAN CORPUSCULAR VOLUME 94 fl (80-97); MONOCYTES % (AUTO) 9.7 % (3-13); PLATELET COUNT 149 10^3/uL (150-450); RED BLOOD COUNT 3.15 10^6/uL (4.35-5.55); RED CELL DISTRIBUTION WIDTH 14.7 % (11.5-14.0); SEGMENTED NEUTROPHILS % (AUTO) 80.1 % (42-78); TOTAL CELLS COUNTED % (AUTO) 100 %; WHITE BLOOD COUNT 11.8 10^3/uL (4.0-10.5)
[2019-04-01 07:15] LABS: BLOOD UREA NITROGEN 93 mg/dL (7-20); CALCIUM 8.4 mg/dL (8.4-10.2); CARBON DIOXIDE 33 mmol/L (22-30); CHLORIDE 108 mmol/L (98-107); GLUCOSE 89 mg/dL (75-110)
[2019-04-01 07:38] LABS: ANION GAP 5 (5-19)
[2019-04-01] MEDS: ONDANSETRON HCL INJ/PF 4 MG/2 ML SDV IV PRN (08:15)
--- NOTE | 2019-04-01 09:07 | PDOC PROGRESS REPORT ---
Subjective Progress Note for:: 04/01/19 Subjective:: ICU Progress Note. Pt was extubated yesterday and has been on high flow nasal cannula. He has been awake, alert, oriented and very pleasant. He did have some low blood sugars overnight. Reason For Visit: ACUTE HYPOXIC RESPIRATORY FAILURE,ACUTE KIDNEY Physical Exam Vital Signs: Temp Pulse Resp BP Pulse Ox 97.6 F 66 19 147/69 H 92 04/01/19 07:54 04/01/19 07:54 04/01/19 08:00 04/01/19 07:54 04/01/19 08:00 Intake & Output 03/31/19 04/01/19 04/02/19 06:59 06:59 06:59 Intake Total 2307 1178 Output Total 1695 3460 185 Balance -4598 -2282 -185 Weight 107.9 kg 107.2 kg General appearance: PRESENT: no acute distress, well-developed, well-nourished, other - on high-flow nasal cannula Head exam: PRESENT: atraumatic, normocephalic Respiratory exam: PRESENT: decreased breath sounds, unlabored Cardiovascular exam: PRESENT: RRR GI/Abdominal exam: PRESENT: soft, other - non-tender, non-distended Gentrourinary exam: PRESENT: indwelling catheter Extremities exam: PRESENT: other - edema Neurological exam: PRESENT: alert, awake, oriented to person Psychiatric exam: PRESENT: appropriate affect Results Laboratory Results: 04/01/19 04:53 04/01/19 06:38 03/30/19 03/30/19 04/01/19 16:00 16:00 04:53 WBC RBC Hgb Hct MCV MCH MCHC RDW Plt Count Seg Neutrophils % Sodium Cancelled Potassium Cancelled Chloride Cancelled Carbon Dioxide Cancelled Anion Gap Cancelled BUN Cancelled Creatinine Cancelled Est GFR ( Amer) Cancelled Est GFR (Non-Af Amer) Cancelled Glucose Cancelled Calcium Cancelled Magnesium Cancelled Fluid Total Protein 1.3 Fluid LDH 87 04/01/19 04/01/19 04:53 06:38 WBC 11.8 H RBC 3.15 L Hgb 9.5 L Hct 29.5 L MCV 94 MCH 30.3 MCHC 32.3 RDW 14.7 H Plt Count 149 L Seg Neutrophils % 80.1 H Sodium 145.3 H Potassium 4.0 Chloride 108 H Carbon Dioxide 33 H Anion Gap 5 BUN 93 H Creatinine 1.99 H Est GFR ( Amer) 41 L Est GFR (Non-Af Amer) Glucose 89 Calcium 8.4 Magnesium 2.6 H Fluid Total Protein Fluid LDH 03/28/19 09:30 Tracheal Aspirate Gram Stain - Final 03/26/19 12:30 Tracheal Aspirate Gram Stain - Final 03/20/19 03/20/19 03/20/19 02:40 02:40 07:06 Creatine Kinase 109 CK-MB (CK-2) 2.86 Cancelled Troponin I 0.040 Cancelled NT-Pro-B Natriuret Pep 4540 H 03/20/19 03/20/19 03/20/19 07:54 12:30 17:52 Creatine Kinase CK-MB (CK-2) 10.90 H Troponin I 0.648 1.770 3.420 NT-Pro-B Natriuret Pep 03/21/19 03/21/19 03/21/19 06:10 06:10 11:57 Creatine Kinase 353 H 258 H CK-MB (CK-2) 17.60 H Troponin I 5.350 NT-Pro-B Natriuret Pep 03/21/19 03/21/19 03/21/19 11:57 16:08 16:08 Creatine Kinase 232 H CK-MB (CK-2) 13.90 H 11.60 H Troponin I 4.320 4.530 NT-Pro-B Natriuret Pep 03/22/19 03/24/19 05:31 03:49 Creatine Kinase CK-MB (CK-2) Troponin I 3.240 3.270 NT-Pro-B Natriuret Pep Impressions: Vascular Ultrasound 03/21/19 07:41 IMPRESSION: NO DOPPLER EVIDENCE OF HEMODYNAMICALLY SIGNIFICANT RENAL ARTERY STENOSIS. Renal Ultrasound 03/22/19 00:00 IMPRESSION: No hydronephrosis Mild increased cortical echogenicity from medical renal disease Head CT 03/24/19 00:00 IMPRESSION: NO ACUTE INTRACRANIAL FINDINGS. EVIDENCE OF ACUTE STROKE: NO. KUB X-Ray 03/25/19 00:00 IMPRESSION: Nasogastric tube tip and side port in the stomach. Persistent left retrocardiac consolidation worrisome for pneumonia Chest CT 03/28/19 00:00 IMPRESSION: Persistent moderate to large bilateral pleural effusions with dense consolidation in the lung bases consistent with pneumonia. Chest X-Ray 03/29/19 14:29 IMPRESSION: No pneumothorax. Residual left pleural effusion. Thoracentesis Ultrasound 03/30/19 00:00 IMPRESSION: Successful small bore left-sided chest tube placement utilizing ultrasound guidance as detailed above. Assessment & Plan - Diagnosis (1) Acute respiratory failure Qualifiers: Respiratory failure complication: unspecified whether with hypoxia or hypercapnia Qualified Code(s): J96.00 - Acute respiratory failure, unspecified whether with hypoxia or hypercapnia Is this a current diagnosis for this admission?: Yes (2) Pseudomonas pneumonia Qualifiers: Lung location: unspecified part of lung Is this a current diagnosis for this admission?: Yes (3) COPD with exacerbation Is this a current diagnosis for this admission?: Yes (4) Atrial flutter Is this a current diagnosis for this admission?: Yes (5) Acute kidney injury Is this a current diagnosis for this admission?: Yes (6) CKD (chronic kidney disease) stage 3, GFR 30-59 ml/min Is this a current diagnosis for this admission?: Yes (7) NSTEMI (non-ST elevated myocardial infarction) Is this a current diagnosis for this admission?: Yes (8) Diabetes Qualifiers: Diabetes mellitus type: type 2 Diabetes mellitus long-term insulin use: unspecified medical terminologist insulin use status Chronic kidney disease stage: stage 3 (moderate) Is this a current diagnosis for this admission?: Yes (9) Pleural effusion Is this a current diagnosis for this admission?: Yes - Time Time Spent with patient: 25-34 minutes - Plan Summary Plan Summary: Assessment: Critically ill 68 yo man with acute respiratory failure, pseudomonas PNA, AECOPD, aflutter, HTN, NSTEMI, VIDYA, CKD, DM, pleural effusions Plan: 1. Respiratory: acute respiratory failure, resolving. Pt extubated on 03/31 after 11 days on the vent. Remains on high flow nasal cannula. Will wean as tolerated. 2. Pulmonary: Pseudomonas PNA, COPD, possible ILD, large bilateral pleural effusions. ATBX Day 12. On vanc, meropenem, levaquin. s/p right pleural pigtail 03/29 and left pleural pigtail on 03/30 by radiology. COPD, wean steroids. 3. CV: atrial flutter, resolved. Pt in NSR. NSTEMI due to demand ischemia. HTN. Continue lopressor, norvasc. 4. Renal:VIDYA,CKD stage 3. Cr has decreased to 1.99 1/2 NS IVF for hypernatremia 5. ID: pseudomonas PNA. ATBX Day 12. Leukocytosis, resolving. Continue vanc, levaquin, and meropenem. 6. Endocrine: DM. hypoglycemic at times. Lantus stopped. Started on D5 1/2 NS. 7. Heme: on eliquis for afib 8. F/E/N: off tube feeds. Passed bedside swallowing eval. Will start clear liquid diet 9. Disposition: will need LTAC vs inpt rehab 10. PT and OT consulted
[2019-04-01] MEDS: MEROPENEM 1 GM in NORMAL SALINE 50 ML IV SCH ×2 (10:06→22:28)
[2019-04-01] MEDS: METHYLPREDNISOLONE INJ 40 MG/1 ML SDV IV SCH (10:11)
[2019-04-01] MEDS: FAMOTIDINE INJ/PF 20 MG/2 ML SDV IV SCH (10:12)
[2019-04-01] MEDS: LACTULOSE SYRUP 20 GM/30 ML UDCUP NG SCH (10:14)
[2019-04-01] MEDS: AMLODIPINE BESYLATE 10 MG TABLET PO SCH (10:14)
[2019-04-01] MEDS: APIXABAN 2.5 MG TABLET PO SCH (10:14)
[2019-04-01] MEDS: GABAPENTIN 300 MG CAPSULE NG SCH ×2 (10:15→22:28)
[2019-04-01] MEDS: METOPROLOL TARTRATE 50 MG TABLET NG SCH ×2 (10:15→22:27)
[2019-04-01] MEDS: LEVOFLOXACIN 750 MG/D5W RTU 750 MG/150 ML RTUPB IV SCH (11:14)
[2019-04-01] MEDS: METOCLOPRAMIDE HCL INJ/PF 10 MG/2 ML SDV IV SCH ×2 (11:28→18:46)
[2019-04-01] MEDS: DEXTROSE 5%-1/2 NORMAL SALINE 1,000 ML IV PRN (12:37)
--- NOTE | 2019-04-01 21:32 | Progress Note ---
Provider Note Provider Note: CARDIOLOGY PROGRESS NOTE by Dr. Simran Sanchez on 04/01/2019. SUBJECTIVE:. The patient denies any shortness of breath, but he still on nasal BiPAP with FiO2 45%. He denies any chest pain or discomfort there is no PND orthopnea. The pigtails in both the pleural cavities are draining much less. The patient denies any cough or sputum production. There pleural fluid came back as a transudate. This is most likely secondary to his renal failure although cirrhosis of the liver must be excluded. I do not think this is a heart failure since the patient's LV ejection fraction was normal. Unfortunately his right heart pressures were not able to be accurately recorded. This is due to technical limitations. There is no recurrence of atrial fibrillation or flutter. There is no ventricular arrhythmia seen on the monitor. The patient's creatinine is come down to 1.99. And the GFR is gone up to 34 mL. PHYSICAL EXAMINATION: The patient is mildly obese. In no acute distress. He is well-groomed Selected Entries 04/01/19 14:00 Temperature 97.5 F Temperature Oral Source Pulse Rate 68 Respiratory 18 Rate Blood Pressure 152/65 H [Left Upper Arm ] Blood Pressure 94 Mean [Left Upper Arm] Blood Pressure Supine Position [Left Upper Arm] O2 Sat by Pulse 94 Oximetry Oxygen Delivery Nasal Cannula Method ( includes room air) Oxygen Flow 45 Rate Percent of 74 Oxygen HEAD: Is atraumatic. Normocephalic. EYES: Pupils are equal round reactive to light. ENT is negative. NECK: Supple. There is no JVD. There is mild accessory muscle respiration use. Trachea central. LUNGS: There is diminished air entry and prolonged expiration. On percussion there is hyperresonance. The right lung is otherwise clear, except for a few scattered rhonchi. There is absent breath sounds and dullness in the left base.. HEART: S1-S2 is heard. There is no S3 gallop. There is no S4 gallop there is systolic murmur in the left sternal border and the apex there is no rub. ABDOMEN: Is obese. There is no hepatospleno megaly. Bowel sounds well heard. EXTREMITIES: Femorals are diminished there is no femoral bruits. Leg pulses are diminished. There is trace pedal edema in the right lower extremity. There is no DVT or cellulitis. There is no calf tenderness. EXPRESSIVE MUSIC THERAPIST: The patient is conscious awake alert oriented x3 with no focal deficits. PSYCHIATRIC: Patient's judgment insight are intact her affect is normal. Chest X-Ray 03/20/19 00:00 IMPRESSION: Worsening congestive failure with interstitial pulmonary edema. Chest X-Ray 03/20/19 00:00 IMPRESSION: Endotracheal tube is in place. Moderate pulmonary edema. Findings correlate from prior study. Chest X-Ray 03/20/19 02:37 IMPRESSION: Mild increased reticular interstitial changes may all be chronic in nature but cannot exclude minimal edema or atypical pneumonia. Correlation with an old exam or short-term follow-up will be useful. Vascular Ultrasound 03/21/19 07:41 IMPRESSION: NO DOPPLER EVIDENCE OF HEMODYNAMICALLY SIGNIFICANT RENAL ARTERY STENOSIS. Chest CT 03/21/19 13:00 IMPRESSION: 1. Findings most compatible CHF with moderate bilateral pleural effusions and bibasilar consolidation, likely atelectasis. Interlobular and septal thickening and patchy ground-glass attenuation, likely edema although superimposed infection is not entirely excluded. 2. Cardiomegaly. Coronary atherosclerosis. 3. Endotracheal tube within the midthoracic trachea. Chest X-Ray 03/22/19 00:00 IMPRESSION: Endotracheal tube, nasogastric tube in good positioning of the 2nd film. Unchanged bilateral pleural effusions with bibasilar airspace disease Renal Ultrasound 03/22/19 00:00 IMPRESSION: No hydronephrosis Mild increased cortical echogenicity from medical renal disease KUB X-Ray 03/23/19 15:17 IMPRESSION: THE TIP OF THE NASOGASTRIC TUBE IN THE STOMACH. NO RADIOGRAPHIC EVIDENCE FOR ACUTE ABDOMINAL DISEASE. Head CT 03/24/19 00:00 IMPRESSION: NO ACUTE INTRACRANIAL FINDINGS. EVIDENCE OF ACUTE STROKE: NO. Chest X-Ray 03/25/19 00:00 IMPRESSION: Moderate bilateral pleural effusions, left retrocardiac consolidation Endotracheal tube tip 5 cm above the ness KUB X-Ray 03/25/19 00:00 IMPRESSION: Nasogastric tube tip and side port in the stomach. Persistent left retrocardiac consolidation worrisome for pneumonia Chest X-Ray 03/26/19 00:00 IMPRESSION: Bilateral pleural effusions have increased. Airspace disease left lower lobe, consolidation versus atelectasis. Chest X-Ray 03/27/19 06:00 IMPRESSION: Unchanged radiographic appearance of the chest as detailed above. Chest CT 03/28/19 00:00 IMPRESSION: Persistent moderate to large bilateral pleural effusions with dense consolidation in the lung bases consistent with pneumonia. Chest X-Ray 03/28/19 00:00 IMPRESSION: Endotracheal tube is been advanced as described. It now lies 5.2 cm above the ness. No other significant change. Chest X-Ray 03/28/19 07:56 IMPRESSION: Endotracheal tube has been repositioned as described. No other interval change. Chest X-Ray 03/29/19 06:00 IMPRESSION: Interval improvement in lung volumes with persistent layering pleural effusions and associated atelectasis or consolidation. No new airspace opacity. Unchanged support apparatus including endotracheal tube. Cardiomegaly. Thoracentesis Ultrasound 03/29/19 10:00 IMPRESSION: SUCCESSFUL PLACEMENT OF A RIGHT SIDED CHEST 8 CHINESE PIGTAIL TUBE USING ULTRASOUND GUIDANCE. Chest X-Ray 03/29/19 14:29 IMPRESSION: No pneumothorax. Residual left pleural effusion. Thoracentesis Ultrasound 03/30/19 00:00 IMPRESSION: Successful small bore left-sided chest tube placement utilizing ultrasound guidance as detailed above. Labs- All tests 24 hr 03/30/19 03/30/19 04/01/19 16:00 16:00 00:59 WBC RBC Hgb Hct MCV MCH MCHC RDW Plt Count Lymph % (Auto) Ward % (Auto) Eos % (Auto) Baso % (Auto) Absolute Neuts (auto) Absolute Lymphs (auto) Absolute Monos (auto) Absolute Eos (auto) Absolute Basos (auto) Seg Neutrophils % Sodium Potassium Chloride Carbon Dioxide Anion Gap BUN Creatinine Est GFR ( Amer) Est GFR (Non-Af Amer) Est GFR (MDRD) Non-Af Glucose POC Glucose 65 L Calcium Magnesium EGFR Fluid Total Protein 1.3 Fluid LDH 87 04/01/19 04/01/19 04/01/19 01:23 01:47 04:53 WBC RBC Hgb Hct MCV MCH MCHC RDW Plt Count Lymph % (Auto) Ward % (Auto) Eos % (Auto) Baso % (Auto) Absolute Neuts (auto) Absolute Lymphs (auto) Absolute Monos (auto) Absolute Eos (auto) Absolute Basos (auto) Seg Neutrophils % Sodium Cancelled Potassium Cancelled Chloride Cancelled Carbon Dioxide Cancelled Anion Gap Cancelled BUN Cancelled Creatinine Cancelled Est GFR ( Amer) Cancelled Est GFR (Non-Af Amer) Cancelled Est GFR (MDRD) Non-Af Cancelled Glucose Cancelled POC Glucose 109 98 Calcium Cancelled Magnesium Cancelled EGFR Cancelled Fluid Total Protein Fluid LDH 04/01/19 04/01/19 04/01/19 04:53 05:36 06:38 WBC 11.8 H RBC 3.15 L Hgb 9.5 L Hct 29.5 L MCV 94 MCH 30.3 MCHC 32.3 RDW 14.7 H Plt Count 149 L Lymph % (Auto) 8.9 L Ward % (Auto) 9.7 Eos % (Auto) 1.0 Baso % (Auto) 0.3 Absolute Neuts (auto) 9.5 H Absolute Lymphs (auto) 1.0 Absolute Monos (auto) 1.2 Absolute Eos (auto) 0.1 Absolute Basos (auto) 0.0 Seg Neutrophils % 80.1 H Sodium 145.3 H Potassium 4.0 Chloride 108 H Carbon Dioxide 33 H Anion Gap 5 BUN 93 H Creatinine 1.99 H Est GFR ( Amer) 41 L Est GFR (Non-Af Amer) Est GFR (MDRD) Non-Af 34 L Glucose 89 POC Glucose 87 Calcium 8.4 Magnesium 2.6 H EGFR Fluid Total Protein Fluid LDH 04/01/19 04/01/19 10:37 15:59 WBC RBC Hgb Hct MCV MCH MCHC RDW Plt Count Lymph % (Auto) Ward % (Auto) Eos % (Auto) Baso % (Auto) Absolute Neuts (auto) Absolute Lymphs (auto) Absolute Monos (auto) Absolute Eos (auto) Absolute Basos (auto) Seg Neutrophils % Sodium Potassium Chloride Carbon Dioxide Anion Gap BUN Creatinine Est GFR ( Amer) Est GFR (Non-Af Amer) Est GFR (MDRD) Non-Af Glucose POC Glucose 80 155 H Calcium Magnesium EGFR Fluid Total Protein Fluid LDH 03/30/19 03/30/19 03/30/19 16:00 16:00 16:00 Fluid Type PLEURAL Fluid Source LUNG Fluid Color LIGHT YELLOW Fluid Appearance SLIGHTLY HAZY Fluid Viscosity LIQUID Fluid WBC 48 Fluid RBC 58 Fluid Seg Neutrophils 16 Fluid Lymphocytes 72 Fluid Monocytes 12 Fluid Eosinophils 0 Fluid Basophils 0 Fluid Total Protein 1.3 Fluid LDH 87 MPRESSION/RECOMMENDATION: 1. Acute on probably chronic respiratory failure: This is resolved. The patient has been extubated. Initially his O2 sats was slightly low but they have come back up to normal. Continue antibiotics. 2. COPD: Continue bronchodilators and antibiotics. 3. Elevated troponin I: Non-ST elevation NV versus secondary to supply demand mismatch. Later when stable and the chest tubes are out then would recommend having an IV Lexiscan cardio light stress test done on the patient. This has been discussed with the patient. 4. Acute on chronic kidney disease. The patient's current baseline CKD stage III. At present stage IV. Avoid nephrotoxic drugs. 5. Bilateral lower lobe pneumonia with consolidation and most likely para- pneumonic effusions: Continue antibiotics. The patient had a pigtail inserted into the right pleural cavity with drainage of fluid. There is almost no pleural fluid on the right side. There is still left pleural effusion and consolidation present. Strongly recommend pleural fluid analysis to differentiate exudate versus transudate. The plan is to introduce a pigtail into the left pleural cavity with draining of the left pleural effusion. The sample sent from the left pleural fluid is a transudate. 6.Hypotension: Resolved. Patient blood pressure is very high. Patient has been started him on triple enteral antihypertensives. 7. History of hypertension: At present patient blood pressure is very high. 8. Diabetes mellitus: Continue insulin as per blood sugar checks. 9. Possible interstitial lung disease.: The CT scan is reported as findings which did not support ILD. But will discuss with radiology. 10. Episodic heart failure secondary to hypertensive blood pressure spikes. Note that the patient's LV ejection fraction is normal. 11. Peripheral vascular disease as per history. L. Paroxysmal atrial flutter. There is no recurrence. The patient's heart rate is controlled. He is in sinus rhythm. Note the patient's Eliquis has been held in view of the recent invasive procedures. Medications reviewed. Management plan and medication regimen discussed with the batch and furnace manager. Medical decision making is of moderate complexity. 40 minutes spent on this patient more than 50% time spent in direct patient care. Will follow
[2019-04-01] MEDS: VANCOMYCIN HCL 1,000 MG in DEXTROSE 5%-WATER 250 ML IV SCH (22:28)
[2019-04-02] MEDS: INSULIN LISPRO 100 UNIT/ML 3 ML VIAL SUBCUT SCH ×5 (00:51→23:04)
[2019-04-02] MEDS: METOCLOPRAMIDE HCL INJ/PF 10 MG/2 ML SDV IV SCH ×2 (00:51→05:55)
[2019-04-02 04:17] LABS: ABSOLUTE EOSINOPHILS # (AUTO) 0.1 10^3/uL (0.0-0.6); ABSOLUTE MONOCYTES (AUTO) 1.1 10^3/uL (0.1-1.4); ABSOLUTE NEUT (AUTO) 11.4 10^3/uL (1.7-8.2); BASOPHILS % (AUTO) 0.2 % (0-2); HEMOGLOBIN 11.5 g/dL (13.5-17.0); MEAN CORPUSCULAR HEMOGLOBIN 30.1 pg (27.0-33.4); MEAN CORPUSCULAR HGB CONC 32.9 g/dL (32.0-36.0); MEAN CORPUSCULAR VOLUME 91 fl (80-97); MONOCYTES % (AUTO) 8.1 % (3-13); PLATELET COUNT 158 10^3/uL (150-450); RED BLOOD COUNT 3.83 10^6/uL (4.35-5.55); RED CELL DISTRIBUTION WIDTH 13.7 % (11.5-14.0); SEGMENTED NEUTROPHILS % (AUTO) 83.7 % (42-78); TOTAL CELLS COUNTED % (AUTO) 100 %; WHITE BLOOD COUNT 13.6 10^3/uL (4.0-10.5)
[2019-04-02 04:33] LABS: ANION GAP 5 (5-19); BLOOD UREA NITROGEN 84 mg/dL (7-20); CARBON DIOXIDE 31 mmol/L (22-30); CHLORIDE 103 mmol/L (98-107); GLUCOSE 219 mg/dL (75-110); POTASSIUM 4.4 mmol/L (3.6-5.0)
[2019-04-02] MEDS: DEXTROSE 5%-1/2 NORMAL SALINE 1,000 ML IV PRN (05:56)
[2019-04-02] MEDS: HYDRALAZINE HCL INJ/PF 20 MG/1 ML SDV IV PRN (08:40)
--- NOTE | 2019-04-02 09:05 | RADIOLOGY REPORT (SQ) ---
EXAM DESCRIPTION: CHEST SINGLE VIEW COMPLETED DATE/TIME: 04/02/2019 5:59 am REASON FOR STUDY: resp failure COMPARISON: AP chest 03/29/2019, 03/28/2019, 03/27/2019, 03/22/2019 CT chest 03/28/2019 EXAM PARAMETERS: NUMBER OF VIEWS: One view. TECHNIQUE: Single frontal radiographic view of the chest acquired. RADIATION DOSE: NA LIMITATIONS: None. FINDINGS: LUNGS AND PLEURA: There is mild perihilar pulmonary vascular prominence with trace right p leural effusion and few Jewell lines worrisome for mild fluid overload or congestive failure. Bilateral pigtail catheters are present in the pleural space without pneumothorax. Trace residual ri ght pleural effusion. MEDIASTINUM AND HILAR STRUCTURES: No masses. Contour normal. HEART AND VASCULAR STRUCTURES: Stable mild cardiomegaly BONES: No acute findings. HARDWARE: Nasogastric tube tip and side port in the stomach. Right and left pleural space pigtail ca theters are present. OTHER: No other significant finding. IMPRESSION: Persistent pulmonary vascular congestion with mild perihilar airspace disease worrisome for pulmonary edema TECHNICAL DOCUMENTATION: JOB ID: [id number] [employer]- All Rights Reserved Reading location - IP/workstation name: [email or web address]
[2019-04-02] MEDS: MEROPENEM 1 GM in NORMAL SALINE 50 ML IV SCH ×2 (09:46→21:18)
[2019-04-02] MEDS: METOPROLOL TARTRATE 50 MG TABLET NG SCH ×2 (09:48→21:15)
[2019-04-02] MEDS: GABAPENTIN 300 MG CAPSULE NG SCH ×2 (09:48→21:15)
[2019-04-02] MEDS: METHYLPREDNISOLONE INJ 40 MG/1 ML SDV IV SCH ×2 (09:49→21:16)
[2019-04-02] MEDS: LACTULOSE SYRUP 20 GM/30 ML UDCUP NG SCH (09:49)
[2019-04-02] MEDS: FAMOTIDINE INJ/PF 20 MG/2 ML SDV IV SCH (09:49)
[2019-04-02] MEDS: AMLODIPINE BESYLATE 10 MG TABLET PO SCH (09:49)
--- NOTE | 2019-04-02 10:50 | PDOC PROGRESS REPORT ---
Subjective Progress Note for:: 04/02/19 Subjective:: Patient is doing clinically well. He was extubated couple days ago and is currently doing well on that. He continues to have excellent urine output. His kidney function continues to improve. He still has some output on his bilateral chest tubes. He is on liquid diet currently. Reason For Visit: ACUTE HYPOXIC RESPIRATORY FAILURE,ACUTE KIDNEY Physical Exam Vital Signs: Temp Pulse Resp BP Pulse Ox 98.1 F 73 15 156/61 H 98 04/02/19 08:00 04/02/19 10:00 04/02/19 10:00 04/02/19 10:00 04/02/19 10:00 Intake & Output 04/01/19 04/02/19 04/03/19 06:59 06:59 06:59 Intake Total 1228 1997 1366 Output Total 3460 3630 570 Balance -2062 -0723 796 Weight 107.2 kg 109.1 kg Exam: General appearance: PRESENT: no acute distress, cooperative, well-developed, well-nourished Head exam: PRESENT: atraumatic, normocephalic Eye exam: PRESENT: conjunctiva slightly pale, PERRLA. ABSENT: scleral icterus Neck exam: ABSENT: JVD Respiratory exam: PRESENT: Coarse breath sounds. Positive crackles ABSENT: Rhonchi, unlabored, wheezes Cardiovascular exam: PRESENT: Regular rate rhythm -+S1, +S2. ABSENT: diastolic murmur, systolic murmur GI/Abdominal exam: PRESENT: normal bowel sounds, soft. ABSENT: guarding, mass, tenderness Extremities exam: Bilateral grade 1 lower extremity pitting edema Neurological exam: PRESENT: alert, awake, oriented to person, place and time. Skin exam: PRESENT: dry, warm, Cardiovascular exam: PRESENT: +S1, +S2 GI/Abdominal exam: PRESENT: normal bowel sounds, soft. ABSENT: organomegaly, tenderness Results Laboratory Results: 04/02/19 03:57 04/02/19 03:57 03/30/19 04/02/19 04/02/19 16:00 03:57 03:57 WBC 13.6 H RBC 3.83 L Hgb 11.5 L Hct 35.0 L MCV 91 MCH 30.1 MCHC 32.9 RDW 13.7 Plt Count 158 Seg Neutrophils % 83.7 H Sodium 138.5 Potassium 4.4 Chloride 103 Carbon Dioxide 31 H Anion Gap 5 BUN 84 H Creatinine 1.74 H Est GFR ( Amer) 48 L Glucose 219 H Calcium 8.0 L Magnesium 2.4 H Fluid pH 7.6 03/29/19 13:50 Pleural Fluid - Right Pleural Effusion Gram Stain - Final 03/29/19 13:50 Pleural Fluid - Right Pleural Effusion Body Fluid Culture - Final NO AEROBIC OR ANAEROBIC ORGANISMS RECOVERED 03/28/19 09:30 Tracheal Aspirate Gram Stain - Final 03/28/19 09:30 Tracheal Aspirate Sputum Culture - Final Pseudomonas Aeruginosa Normal Brittnee Absent 03/26/19 12:30 Tracheal Aspirate Gram Stain - Final 03/26/19 12:30 Tracheal Aspirate Sputum Culture - Final Pseudomonas Aeruginosa Normal Brittnee Absent 03/20/19 03/20/19 03/20/19 02:40 02:40 07:06 Creatine Kinase 109 CK-MB (CK-2) 2.86 Cancelled Troponin I 0.040 Cancelled NT-Pro-B Natriuret Pep 4540 H 03/20/19 03/20/19 03/20/19 07:54 12:30 17:52 Creatine Kinase CK-MB (CK-2) 10.90 H Troponin I 0.648 1.770 3.420 NT-Pro-B Natriuret Pep 03/21/19 03/21/19 03/21/19 06:10 06:10 11:57 Creatine Kinase 353 H 258 H CK-MB (CK-2) 17.60 H Troponin I 5.350 NT-Pro-B Natriuret Pep 03/21/19 03/21/19 03/21/19 11:57 16:08 16:08 Creatine Kinase 232 H CK-MB (CK-2) 13.90 H 11.60 H Troponin I 4.320 4.530 NT-Pro-B Natriuret Pep 03/22/19 03/24/19 05:31 03:49 Creatine Kinase CK-MB (CK-2) Troponin I 3.240 3.270 NT-Pro-B Natriuret Pep Impressions: Vascular Ultrasound 03/21/19 07:41 IMPRESSION: NO DOPPLER EVIDENCE OF HEMODYNAMICALLY SIGNIFICANT RENAL ARTERY STENOSIS. Renal Ultrasound 03/22/19 00:00 IMPRESSION: No hydronephrosis Mild increased cortical echogenicity from medical renal disease Head CT 03/24/19 00:00 IMPRESSION: NO ACUTE INTRACRANIAL FINDINGS. EVIDENCE OF ACUTE STROKE: NO. KUB X-Ray 03/25/19 00:00 IMPRESSION: Nasogastric tube tip and side port in the stomach. Persistent left retrocardiac consolidation worrisome for pneumonia Chest CT 03/28/19 00:00 IMPRESSION: Persistent moderate to large bilateral pleural effusions with dense consolidation in the lung bases consistent with pneumonia. Thoracentesis Ultrasound 03/30/19 00:00 IMPRESSION: Successful small bore left-sided chest tube placement utilizing ultrasound guidance as detailed above. Chest X-Ray 04/02/19 06:00 IMPRESSION: Persistent pulmonary vascular congestion with mild perihilar airspace disease worrisome for pulmonary edema Assessment & Plan - Diagnosis (1) Acute hypoxemic respiratory failure Is this a current diagnosis for this admission?: Yes Plan: Currently extubated and is doing well. Management per shipyard supervisor. (2) Acute kidney injury Is this a current diagnosis for this admission?: Yes Plan: Urine output is excellent. Kidney function continues to improve. Continue current management. His vancomycin trough level was elevated on March 31, pharmacy is managing the vancomycin dose. I recommend that the vancomycin trough level be repeated and be monitored closely. (3) COPD with exacerbation Is this a current diagnosis for this admission?: Yes Plan: Per shipyard supervisor. (4) NSTEMI (non-ST elevated myocardial infarction) Is this a current diagnosis for this admission?: Yes Plan: Chain Hoist Operator, Dr. Sanchez on board. (5) Pseudomonas pneumonia Qualifiers: Lung location: unspecified part of lung Is this a current diagnosis for this admission?: Yes Plan: On meropenem and vancomycin. (6) Pleural effusion Is this a current diagnosis for this admission?: Yes Plan: Patient with bilateral chest tubes. Per shipyard supervisor. (7) Hypertension Is this a current diagnosis for this admission?: Yes (8) Diabetes 1.5, managed as type 2 Is this a current diagnosis for this admission?: No - Time Time with patient: 15-25 minutes
[2019-04-02] MEDS: VANCOMYCIN HCL 1,000 MG in DEXTROSE 5%-WATER 250 ML IV SCH (21:18)
--- NOTE | 2019-04-02 22:23 | PDOC PROGRESS REPORT ---
Subjective Progress Note for:: 04/02/19 Subjective:: Patient continues to have sustained improvement in overall condition. He was successfully extubated 48 hours ago and has had no respiratory difficulty. He has been maintained on high flow with reduction in FiO2 and pressure requirements. He was able to tolerate physical therapy today. Notably he continues to have significant chest tube output with right greater than left. He has been hemodynamically stable and afebrile. He has no complaints specifically. Reason For Visit: ACUTE HYPOXIC RESPIRATORY FAILURE,ACUTE KIDNEY injury Physical Exam Vital Signs: Temp Pulse Resp BP Pulse Ox 98.5 F 61 20 138/57 H 99 04/02/19 20:00 04/02/19 20:00 04/02/19 18:00 04/02/19 18:00 04/02/19 18:00 Intake & Output 04/01/19 04/02/19 04/03/19 06:59 06:59 06:59 Intake Total 1228 2247 3110 Output Total 3460 3630 1335 Balance -2232 -1383 1775 Weight 107.2 kg 109.1 kg Physical Exam: Nonintubated nontoxic ill appearing no acute distress General appearance: PRESENT: no acute distress, cooperative, well-developed, well-nourished Head exam: PRESENT: atraumatic, normocephalic Eye exam: PRESENT: conjunctiva pink, EOMI, PERRLA. ABSENT: conjunctival injection, nystagmus, scleral icterus Mouth exam: PRESENT: moist, neck supple, tongue midline Neck exam: ABSENT: carotid bruit, JVD, lymphadenopathy, meningismus, tenderness, thyromegaly, tracheal deviation Respiratory exam: PRESENT: rhonchi. ABSENT: accessory muscle use Additional comments: Rhonchi specifically left upper chest Cardiovascular exam: PRESENT: RRR Vascular exam: PRESENT: normal capillary refill GI/Abdominal exam: PRESENT: normal bowel sounds, soft. ABSENT: ascites, distended, firm, guarding, mass, Deleon's sign, organolmegaly, rebound, rigid, tenderness Rectal exam: PRESENT: deferred Gentrourinary exam: PRESENT: indwelling catheter Extremities exam: PRESENT: full ROM. ABSENT: tenderness Musculoskeletal exam: PRESENT: normal inspection. ABSENT: ambulatory Neurological exam: PRESENT: alert, awake, oriented to person, oriented to place, oriented to situation, CN II-XII grossly intact. ABSENT: motor sensory deficit Psychiatric exam: PRESENT: appropriate affect Additional comments: No delirium present Skin exam: PRESENT: intact. ABSENT: abrasion, cyanosis, erythema, jaundice, m ottled, petechiae, rash, skin tears - Sacrum is clear of any erythema. Grade 1 soft tissue changes present prior to admission., urticaria, vesicles Results Laboratory Results: 04/02/19 03:57 04/02/19 03:57 03/30/19 04/02/19 04/02/19 16:00 03:57 03:57 WBC 13.6 H RBC 3.83 L Hgb 11.5 L Hct 35.0 L MCV 91 MCH 30.1 MCHC 32.9 RDW 13.7 Plt Count 158 Seg Neutrophils % 83.7 H Sodium 138.5 Potassium 4.4 Chloride 103 Carbon Dioxide 31 H Anion Gap 5 BUN 84 H Creatinine 1.74 H Est GFR ( Amer) 48 L Glucose 219 H Calcium 8.0 L Magnesium 2.4 H Fluid pH 7.6 03/28/19 10:51 Blood Blood Culture - Final NO GROWTH IN 5 DAYS 03/28/19 10:40 Blood Blood Culture - Final NO GROWTH IN 5 DAYS 03/29/19 13:50 Pleural Fluid - Right Pleural Effusion Gram Stain - Final 03/29/19 13:50 Pleural Fluid - Right Pleural Effusion Body Fluid Culture - Final NO AEROBIC OR ANAEROBIC ORGANISMS RECOVERED 03/28/19 09:30 Tracheal Aspirate Gram Stain - Final 03/28/19 09:30 Tracheal Aspirate Sputum Culture - Final Pseudomonas Aeruginosa Normal Brittnee Absent 03/26/19 12:30 Tracheal Aspirate Gram Stain - Final 03/26/19 12:30 Tracheal Aspirate Sputum Culture - Final Pseudomonas Aeruginosa Normal Brittnee Absent 03/20/19 03/20/19 03/20/19 02:40 02:40 07:06 Creatine Kinase 109 CK-MB (CK-2) 2.86 Cancelled Troponin I 0.040 Cancelled NT-Pro-B Natriuret Pep 4540 H 03/20/19 03/20/19 03/20/19 07:54 12:30 17:52 Creatine Kinase CK-MB (CK-2) 10.90 H Troponin I 0.648 1.770 3.420 NT-Pro-B Natriuret Pep 03/21/19 03/21/19 03/21/19 06:10 06:10 11:57 Creatine Kinase 353 H 258 H CK-MB (CK-2) 17.60 H Troponin I 5.350 NT-Pro-B Natriuret Pep 03/21/19 03/21/19 03/21/19 11:57 16:08 16:08 Creatine Kinase 232 H CK-MB (CK-2) 13.90 H 11.60 H Troponin I 4.320 4.530 NT-Pro-B Natriuret Pep 03/22/19 03/24/19 05:31 03:49 Creatine Kinase CK-MB (CK-2) Troponin I 3.240 3.270 NT-Pro-B Natriuret Pep Impressions: Vascular Ultrasound 03/21/19 07:41 IMPRESSION: NO DOPPLER EVIDENCE OF HEMODYNAMICALLY SIGNIFICANT RENAL ARTERY STENOSIS. Renal Ultrasound 03/22/19 00:00 IMPRESSION: No hydronephrosis Mild increased cortical echogenicity from medical renal disease Head CT 03/24/19 00:00 IMPRESSION: NO ACUTE INTRACRANIAL FINDINGS. EVIDENCE OF ACUTE STROKE: NO. KUB X-Ray 03/25/19 00:00 IMPRESSION: Nasogastric tube tip and side port in the stomach. Persistent left retrocardiac consolidation worrisome for pneumonia Chest CT 03/28/19 00:00 IMPRESSION: Persistent moderate to large bilateral pleural effusions with dense consolidation in the lung bases consistent with pneumonia. Thoracentesis Ultrasound 03/30/19 00:00 IMPRESSION: Successful small bore left-sided chest tube placement utilizing ultrasound guidance as detailed above. Chest X-Ray 04/02/19 06:00 IMPRESSION: Persistent pulmonary vascular congestion with mild perihilar airspace disease worrisome for pulmonary edema Status: Image reviewed by or - Chest x-ray dramatically improved especially left upper lobe agree with findings. Tubes in appropriate position. Assessment & Plan - Diagnosis (1) Acute respiratory failure Qualifiers: Respiratory failure complication: hypoxia and hypercapnia Qualified Code(s): J96.01 - Acute respiratory failure with hypoxia; J96.02 - Acute respiratory failure with hypercapnia Is this a current diagnosis for this admission?: Yes (2) Bilateral pleural effusion Is this a current diagnosis for this admission?: Yes Plan: Continue pleural drains until output is less than 150 cc in 24 hours (3) Acute hypoxemic respiratory failure Is this a current diagnosis for this admission?: Yes Plan: Improving continue supportive care wean high flow nasal cannula (4) Acute kidney injury Is this a current diagnosis for this admission?: Yes Plan: Improving continue current therapy (5) Atrial fibrillation Qualifiers: Atrial fibrillation type: paroxysmal Qualified Code(s): I48.0 - Paroxysmal atrial fibrillation Is this a current diagnosis for this admission?: Yes (6) CKD (chronic kidney disease) stage 3, GFR 30-59 ml/min Is this a current diagnosis for this admission?: Yes - Time Time Spent with patient: 35 or more minutes Total Critical Time (Minutes): 40 Medications reviewed and adjusted accordingly: Yes Anticipated discharge: Acute Rehab Within: within 48 hours - Inpatient Certification Based on my medical assessment, after consideration of the patient's comorbidities, presenting symptoms, or acuity I expect that the services needed warrant INPATIENT care.: Yes I certify that my determination is in accordance with my understanding of Medicare's requirements for reasonable and necessary INPATIENT services [42 CFR 412.3e].: Yes Medical Necessity: Failure to Improve With Outpatient Therapy, Need Close Monitoring Due to Risk of Patient Decompensation, Need For Continuous Telemetry Monitoring, Risk of Complication if Not Cared For in Hospital Post Hospital Care: D/C Director Multimedia Documentation
--- NOTE | 2019-04-02 23:08 | Progress Note ---
Provider Note Provider Note: CARDIOLOGY PROGRESS NOTE by Dr. Simran Sanchez on 04/02/2019. SUBJECTIVE: The patient continues to improve respiratory doan. He denies any chest pain or discomfort. There is no shortness of breath. There is no recurrence of atrial flutter. But the patient still continues to have drainage from both the pleural cavity tubes. His creatinine is improving but his BUN is elevated. Chest x-ray suggestive of CHF. Will probably repeat the patient's echo limited for LV ejection fraction deterioration. But this also could be due to the heart not meeting the demands of the high output due to renal failure. Will discuss with the thoracic surgeon. PHYSICAL EXAMINATION: The patient is mildly obese. In no acute distress. Selected Entries 04/02/19 04/02/19 16:00 16:26 Heart Rate ( 70 Monitors) Respiratory 18 Rate Blood Pressure 118/57 L Blood Pressure 77 Mean O2 Sat by Pulse 99 Oximetry Oxygen Delivery Nasal Cannula Method ( includes room air) Oxygen Flow 45 Rate HEAD: Is atraumatic. Normocephalic. EYES: Pupils are equal round reactive to light. ENT is negative. NECK: Supple. There is no JVD. There is mild accessory muscle respiration use. Trachea central. LUNGS: There is diminished air entry and prolonged expiration. On percussion there is hyperresonance. The right lung is otherwise clear, except for a few scattered rhonchi. There is absent breath sounds and dullness in the left base.. HEART: S1-S2 is heard. There is no S3 gallop. There is no S4 gallop there is systolic murmur in the left sternal border and the apex there is no rub. ABDOMEN: Is obese. There is no hepatospleno megaly. Bowel sounds well heard. EXTREMITIES: Femorals are diminished there is no femoral bruits. Leg pulses are diminished. There is trace pedal edema in the right lower extremity. There is no DVT or cellulitis. There is no calf tenderness. ORTHOTIST/PROSTHETIST: The patient is conscious awake alert oriented x3 with no focal deficits. PSYCHIATRIC: Patient's judgment insight are intact her affect is normal. Labs- All tests 24 hr 03/30/19 04/02/19 04/02/19 16:00 00:45 03:57 WBC RBC Hgb Hct MCV MCH MCHC RDW Plt Count Lymph % (Auto) [place] % (Auto) Eos % (Auto) Baso % (Auto) Absolute Neuts (auto) Absolute Lymphs (auto) Absolute Monos (auto) Absolute Eos (auto) Absolute Basos (auto) Seg Neutrophils % Sodium 138.5 Potassium 4.4 Chloride 103 Carbon Dioxide 31 H Anion Gap 5 BUN 84 H Creatinine 1.74 H Est GFR ( Amer) 48 L Est GFR (MDRD) Non-Af 39 L Glucose 219 H POC Glucose 223 H Calcium 8.0 L Magnesium 2.4 H Fluid pH 7.6 04/02/19 04/02/19 04/02/19 03:57 05:49 10:56 WBC 13.6 H RBC 3.83 L Hgb 11.5 L Hct 35.0 L MCV 91 MCH 30.1 MCHC 32.9 RDW 13.7 Plt Count 158 Lymph % (Auto) 7.0 L [place] % (Auto) 8.1 Eos % (Auto) 1.0 Baso % (Auto) 0.2 Absolute Neuts (auto) 11.4 H Absolute Lymphs (auto) 1.0 Absolute Monos (auto) 1.1 Absolute Eos (auto) 0.1 Absolute Basos (auto) 0.0 Seg Neutrophils % 83.7 H Sodium Potassium Chloride Carbon Dioxide Anion Gap BUN Creatinine Est GFR ( Amer) Est GFR (MDRD) Non-Af Glucose POC Glucose 216 H 204 H Calcium Magnesium Fluid pH 04/02/19 04/02/19 18:05 22:46 WBC RBC Hgb Hct MCV MCH MCHC RDW Plt Count Lymph % (Auto) [place] % (Auto) Eos % (Auto) Baso % (Auto) Absolute Neuts (auto) Absolute Lymphs (auto) Absolute Monos (auto) Absolute Eos (auto) Absolute Basos (auto) Seg Neutrophils % Sodium Potassium Chloride Carbon Dioxide Anion Gap BUN Creatinine Est GFR ( Amer) Est GFR (MDRD) Non-Af Glucose POC Glucose 172 H 160 H Calcium Magnesium Fluid pH Chest X-Ray 03/20/19 00:00 IMPRESSION: Worsening congestive failure with interstitial pulmonary edema. Chest X-Ray 03/20/19 00:00 IMPRESSION: Endotracheal tube is in place. Moderate pulmonary edema. Findings correlate from prior study. Chest X-Ray 03/20/19 02:37 IMPRESSION: Mild increased reticular interstitial changes may all be chronic in nature but cannot exclude minimal edema or atypical pneumonia. Correlation with an old exam or short-term follow-up will be useful. Vascular Ultrasound 03/21/19 07:41 IMPRESSION: NO DOPPLER EVIDENCE OF HEMODYNAMICALLY SIGNIFICANT RENAL ARTERY STENOSIS. Chest CT 03/21/19 13:00 IMPRESSION: 1. Findings most compatible CHF with moderate bilateral pleural effusions and bibasilar consolidation, likely atelectasis. Interlobular and septal thickening and patchy ground-glass attenuation, likely edema although superimposed infection is not entirely excluded. 2. Cardiomegaly. Coronary atherosclerosis. 3. Endotracheal tube within the midthoracic trachea. Chest X-Ray 03/22/19 00:00 IMPRESSION: Endotracheal tube, nasogastric tube in good positioning of the 2nd film. Unchanged bilateral pleural effusions with bibasilar airspace disease Renal Ultrasound 03/22/19 00:00 IMPRESSION: No hydronephrosis Mild increased cortical echogenicity from medical renal disease KUB X-Ray 03/23/19 15:17 IMPRESSION: THE TIP OF THE NASOGASTRIC TUBE IN THE STOMACH. NO RADIOGRAPHIC EVIDENCE FOR ACUTE ABDOMINAL DISEASE. Head CT 03/24/19 00:00 IMPRESSION: NO ACUTE INTRACRANIAL FINDINGS. EVIDENCE OF ACUTE STROKE: NO. Chest X-Ray 03/25/19 00:00 IMPRESSION: Moderate bilateral pleural effusions, left retrocardiac consolidation Endotracheal tube tip 5 cm above the ness KUB X-Ray 03/25/19 00:00 IMPRESSION: Nasogastric tube tip and side port in the stomach. Persistent left retrocardiac consolidation worrisome for pneumonia Chest X-Ray 03/26/19 00:00 IMPRESSION: Bilateral pleural effusions have increased. Airspace disease left lower lobe, consolidation versus atelectasis. Chest X-Ray 03/27/19 06:00 IMPRESSION: Unchanged radiographic appearance of the chest as detailed above. Chest CT 03/28/19 00:00 IMPRESSION: Persistent moderate to large bilateral pleural effusions with dense consolidation in the lung bases consistent with pneumonia. Chest X-Ray 03/28/19 00:00 IMPRESSION: Endotracheal tube is been advanced as described. It now lies 5.2 cm above the ness. No other significant change. Chest X-Ray 03/28/19 07:56 IMPRESSION: Endotracheal tube has been repositioned as described. No other interval change. Chest X-Ray 03/29/19 06:00 IMPRESSION: Interval improvement in lung volumes with persistent layering pleural effusions and associated atelectasis or consolidation. No new airspace opacity. Unchanged support apparatus including endotracheal tube. Cardiomegaly. Thoracentesis Ultrasound 03/29/19 10:00 IMPRESSION: SUCCESSFUL PLACEMENT OF A RIGHT SIDED CHEST 8 AMHARIC PIGTAIL TUBE USING ULTRASOUND GUIDANCE. Chest X-Ray 03/29/19 14:29 IMPRESSION: No pneumothorax. Residual left pleural effusion. Thoracentesis Ultrasound 03/30/19 00:00 IMPRESSION: Successful small bore left-sided chest tube placement utilizing ultrasound guidance as detailed above. Chest X-Ray 04/02/19 06:00 IMPRESSION: Persistent pulmonary vascular congestion with mild perihilar airspace disease worrisome for pulmonary edema MPRESSION/RECOMMENDATION: 1. Acute on probably chronic respiratory failure: This is resolved. The patient has been extubated. Initially his O2 sats was slightly low but they have come back up to normal. Continue antibiotics. 2. COPD: Continue bronchodilators and antibiotics. 3. Elevated troponin I: Non-ST elevation [place] versus secondary to supply demand mismatch. Later when stable and the chest tubes are out then would recommend having an IV Lexiscan cardio light stress test done on the patient. This has been discussed with the patient. 4. Acute on chronic kidney disease. The patient's current baseline CKD stage III. At present stage IV. Avoid nephrotoxic drugs. 5. Bilateral lower lobe pneumonia with consolidation and most likely para- pneumonic effusions: Continue antibiotics. The patient had a pigtail inserted into the right pleural cavity with drainage of fluid. There is almost no pleural fluid on the right side. There is still left pleural effusion and consolidation present. The sample sent from the left pleural fluid is a transudate. Both pigtails in the pleural cavity has still draining fluid. 6.Hypotension: Resolved. Patient blood pressure is very high. Patient has been started him on triple enteral antihypertensives. 7. History of hypertension: At present patient blood pressure is very high. 8. Diabetes mellitus: Continue insulin as per blood sugar checks. 9. Possible interstitial lung disease.: The CT scan is reported as findings which did not support ILD. But will discuss with radiology. 10. Episodic heart failure secondary to hypertensive blood pressure spikes. Note that the patient's LV ejection fraction is normal. 11. Peripheral vascular disease as per history. L. Paroxysmal atrial flutter. There is no recurrence. The patient's heart rate is controlled. He is in sinus rhythm. Note the patient's Eliquis has been held in view of the recent invasive procedures. Medications reviewed. Management plan and medical regimen discussed with the thoracic surgeon and the certified master safe technician. Medical decision making is of high complexity. 40 minutes spent on this patient more than 50% of time spent in direct patient care. Will get a limited echo for LV ejection fraction estimation tomorrow.
[2019-04-03 04:54] LABS: ABSOLUTE EOSINOPHILS # (AUTO) 0.1 10^3/uL (0.0-0.6); ABSOLUTE LYMPHOCYTES (AUTO) 0.7 10^3/uL (0.5-4.7); ABSOLUTE MONOCYTES (AUTO) 0.8 10^3/uL (0.1-1.4); ABSOLUTE NEUT (AUTO) 11.3 10^3/uL (1.7-8.2); BASOPHILS % (AUTO) 0.3 % (0-2); EOSINOPHILS % (AUTO) 0.4 % (0-6); HEMATOCRIT 33.1 % (37.9-51.0); HEMOGLOBIN 11.3 g/dL (13.5-17.0); LYMPHOCYTES % (AUTO) 5.1 % (13-45); MEAN CORPUSCULAR HEMOGLOBIN 30.8 pg (27.0-33.4); MEAN CORPUSCULAR VOLUME 91 fl (80-97); MONOCYTES % (AUTO) 6.4 % (3-13); PLATELET COUNT 167 10^3/uL (150-450); RED BLOOD COUNT 3.65 10^6/uL (4.35-5.55); RED CELL DISTRIBUTION WIDTH 13.9 % (11.5-14.0); SEGMENTED NEUTROPHILS % (AUTO) 87.8 % (42-78); TOTAL CELLS COUNTED % (AUTO) 100 %; WHITE BLOOD COUNT 12.8 10^3/uL (4.0-10.5)
[2019-04-03 05:20] LABS: ANION GAP 7 (5-19); BLOOD UREA NITROGEN 78 mg/dL (7-20); CALCIUM 8.1 mg/dL (8.4-10.2); CARBON DIOXIDE 29 mmol/L (22-30); CHLORIDE 99 mmol/L (98-107); GLUCOSE 154 mg/dL (75-110); PHOSPHORUS 4.6 mg/dL (2.5-4.5); POTASSIUM 4.4 mmol/L (3.6-5.0)
[2019-04-03] MEDS: INSULIN LISPRO 100 UNIT/ML 3 ML VIAL SUBCUT SCH ×3 (06:04→17:18)
--- NOTE | 2019-04-03 08:36 | RADIOLOGY REPORT (SQ) ---
EXAM DESCRIPTION: CHEST SINGLE VIEW COMPLETED DATE/TIME: 04/03/2019 6:14 am REASON FOR STUDY: pleural effusion COMPARISON: AP view of the chest from 04/02/2019. EXAM PARAMETERS: NUMBER OF VIEWS: One view. TECHNIQUE: Single frontal radiographic view of the chest acquired. RADIATION DOSE: NA LIMITATIONS: None. FINDINGS: LUNGS AND PLEURA: Improved aeration of the bases. The left retrocardiac opacity persisten t could represent an area of atelectasis or consolidation. There is no sizable pleural effusion or p neumothorax. MEDIASTINUM AND HILAR STRUCTURES: Stable mediastinal and hilar contours. HEART AND VASCULAR STRUCTURES: Stable cardiac silhouette. The pulmonary vasculature is within normal limits given the low inspiratory lung volumes. BONES: No acute findings. HARDWARE: The enteric tube is no longer in place. The bibasilar pleural pigtail catheters remain in place. OTHER: No other finding. IMPRESSION: Improved aeration of the bases, stable left retrocardiac opacity that could represent ei ther atelectasis or (in the proper clinical setting) consolidation, and bibasilar pleural catheters w ithout a sizable pleural effusion. TECHNICAL DOCUMENTATION: JOB ID: [id number] [employer]- All Rights Reserved Reading location - IP/workstation name: [email or web address]
[2019-04-03] MEDS: METOPROLOL TARTRATE 50 MG TABLET NG SCH ×2 (09:45→23:05)
[2019-04-03] MEDS: METHYLPREDNISOLONE INJ 40 MG/1 ML SDV IV SCH ×2 (09:45→22:45)
[2019-04-03] MEDS: MEROPENEM 1 GM in NORMAL SALINE 50 ML IV SCH ×2 (09:47→23:05)
[2019-04-03] MEDS: AMLODIPINE BESYLATE 10 MG TABLET PO SCH (09:47)
[2019-04-03] MEDS: GABAPENTIN 300 MG CAPSULE NG SCH ×2 (09:47→23:04)
[2019-04-03] MEDS: HYDRALAZINE HCL INJ/PF 20 MG/1 ML SDV IV PRN (10:45)
[2019-04-03] MEDS: BUMETANIDE INJ/PF 1 MG/4 ML SDV IV SCH ×2 (15:38→22:44)
--- NOTE | 2019-04-03 20:41 | PDOC PROGRESS REPORT ---
Subjective Progress Note for:: 04/03/19 Subjective:: 04.03.2019: Patient continues to improve and had minimal output from his chest tubes. Said nurses have noted a slight increase in the crackles which were diminished earlier. The chest tubes were clamped today and after 4 hours had some increased output but not dramatic. In concern for persistent output the clamps were left open to monitor. It has been quite active and wants to get out of bed. He is working actively with physical therapy. 04.02.2019: Patient continues to have sustained improvement in overall condition. He was successfully extubated 48 hours ago and has had no respiratory difficulty. He has been maintained on high flow with reduction in FiO2 and pressure requirements. He was able to tolerate physical therapy today. Notably he continues to have significant chest tube output with right greater than left. He has been hemodynamically stable and afebrile. He has no complaints specifically. Reason For Visit: ACUTE HYPOXIC RESPIRATORY FAILURE,ACUTE KIDNEY Physical Exam Vital Signs: Temp Pulse Resp BP Pulse Ox 98.4 F 74 24 H 144/61 H 97 04/03/19 16:00 04/03/19 18:00 04/03/19 18:00 04/03/19 18:00 04/03/19 18:00 Intake & Output 04/02/19 04/03/19 04/04/19 06:59 06:59 06:59 Intake Total 2247 3160 287 Output Total 3630 1890 1015 Balance -1383 1270 -728 Weight 109.1 kg 109.5 kg Physical Exam: Ill but nontoxic-appearing 68-year-old male. Appears older than stated age. General appearance: PRESENT: no acute distress, cooperative, obese Head exam: PRESENT: atraumatic, normocephalic Eye exam: PRESENT: conjunctiva pink, EOMI, PERRLA. ABSENT: conjunctival injection, conjunctiva pale, nystagmus, scleral icterus Mouth exam: PRESENT: moist, neck supple Neck exam: ABSENT: carotid bruit, JVD, lymphadenopathy, meningismus, tenderness, thyromegaly, tracheal deviation Respiratory exam: PRESENT: rhonchi - On right. Improved from yesterday.. ABSENT: accessory muscle use, tachypnea, unlabored, wheezes Cardiovascular exam: PRESENT: RRR, +S1, +S2 Vascular exam: PRESENT: normal capillary refill GI/Abdominal exam: PRESENT: normal bowel sounds, soft. ABSENT: ascites, distended, firm, guarding, mass, Deleon's sign, rebound, rigid, tenderness Rectal exam: PRESENT: deferred Extremities exam: PRESENT: full ROM Musculoskeletal exam: PRESENT: full ROM, normal inspection. ABSENT: ambulatory, tenderness Neurological exam: PRESENT: alert, awake, oriented to person, oriented to place, CN II-XII grossly intact. ABSENT: motor sensory deficit, aphasic Psychiatric exam: PRESENT: appropriate affect Focused psych exam: ABSENT: catatonic, delusional, psychomotor agitation Skin exam: PRESENT: intact, normal color. ABSENT: cyanosis, erythema, jaundice, mottled, pallor, petechiae, urticaria Results Laboratory Results: 04/03/19 04:29 04/03/19 04:29 04/03/19 04/03/19 04:29 04:29 WBC 12.8 H RBC 3.65 L Hgb 11.3 L Hct 33.1 L MCV 91 MCH 30.8 MCHC 34.0 RDW 13.9 Plt Count 167 Seg Neutrophils % 87.8 H Sodium 135.4 L Potassium 4.4 Chloride 99 Carbon Dioxide 29 Anion Gap 7 BUN 78 H Creatinine 1.65 H Est GFR ( Amer) 51 L Glucose 154 H Calcium 8.1 L Phosphorus 4.6 H Magnesium 2.3 03/30/19 16:00 Pleural Fluid - Left Pleural Effusion Gram Stain - Final 03/30/19 16:00 Pleural Fluid - Left Pleural Effusion Body Fluid Culture - Final NO AEROBIC OR ANAEROBIC ORGANISMS RECOVERED 03/20/19 03/20/19 03/20/19 02:40 02:40 07:06 Creatine Kinase 109 CK-MB (CK-2) 2.86 Cancelled Troponin I 0.040 Cancelled NT-Pro-B Natriuret Pep 4540 H 03/20/19 03/20/19 03/20/19 07:54 12:30 17:52 Creatine Kinase CK-MB (CK-2) 10.90 H Troponin I 0.648 1.770 3.420 NT-Pro-B Natriuret Pep 03/21/19 03/21/19 03/21/19 06:10 06:10 11:57 Creatine Kinase 353 H 258 H CK-MB (CK-2) 17.60 H Troponin I 5.350 NT-Pro-B Natriuret Pep 03/21/19 03/21/19 03/21/19 11:57 16:08 16:08 Creatine Kinase 232 H CK-MB (CK-2) 13.90 H 11.60 H Troponin I 4.320 4.530 NT-Pro-B Natriuret Pep 03/22/19 03/24/19 05:31 03:49 Creatine Kinase CK-MB (CK-2) Troponin I 3.240 3.270 NT-Pro-B Natriuret Pep Impressions: Vascular Ultrasound 03/21/19 07:41 IMPRESSION: NO DOPPLER EVIDENCE OF HEMODYNAMICALLY SIGNIFICANT RENAL ARTERY STENOSIS. Renal Ultrasound 03/22/19 00:00 IMPRESSION: No hydronephrosis Mild increased cortical echogenicity from medical renal disease Head CT 03/24/19 00:00 IMPRESSION: NO ACUTE INTRACRANIAL FINDINGS. EVIDENCE OF ACUTE STROKE: NO. KUB X-Ray 03/25/19 00:00 IMPRESSION: Nasogastric tube tip and side port in the stomach. Persistent left retrocardiac consolidation worrisome for pneumonia Chest CT 03/28/19 00:00 IMPRESSION: Persistent moderate to large bilateral pleural effusions with dense consolidation in the lung bases consistent with pneumonia. Thoracentesis Ultrasound 03/30/19 00:00 IMPRESSION: Successful small bore left-sided chest tube placement utilizing ultrasound guidance as detailed above. Chest X-Ray 04/03/19 06:00 IMPRESSION: Improved aeration of the bases, stable left retrocardiac opacity that could represent either atelectasis or (in the proper clinical setting) consolidation, and bibasilar pleural catheters without a sizable pleural effusion. Assessment & Plan - Diagnosis (1) Acute respiratory failure Qualifiers: Respiratory failure complication: hypoxia and hypercapnia Qualified Code(s): J96.01 - Acute respiratory failure with hypoxia; J96.02 - Acute respiratory failure with hypercapnia Is this a current diagnosis for this admission?: Yes (2) Bilateral pleural effusion Is this a current diagnosis for this admission?: Yes (3) Acute hypoxemic respiratory failure Is this a current diagnosis for this admission?: Yes (4) Acute kidney injury Is this a current diagnosis for this admission?: Yes (5) Atrial fibrillation Qualifiers: Atrial fibrillation type: paroxysmal Qualified Code(s): I48.0 - Paroxysmal atrial fibrillation Is this a current diagnosis for this admission?: Yes (6) CKD (chronic kidney disease) stage 3, GFR 30-59 ml/min Is this a current diagnosis for this admission?: Yes - Time Time Spent with patient: 35 or more minutes Total Critical Time (Minutes): 40 Medications reviewed and adjusted accordingly: Yes Anticipated discharge: Acute Rehab Within: within 36 hours - Inpatient Certification Based on my medical assessment, after consideration of the patient's comorbidities, presenting symptoms, or acuity I expect that the services needed warrant INPATIENT care.: Yes I certify that my determination is in accordance with my understanding of Medicare's requirements for reasonable and necessary INPATIENT services [42 CFR 412.3e].: Yes Medical Necessity: Significant Comorbidiites Make Outpatient Treatment Too Risky, Need Close Monitoring Due to Risk of Patient Decompensation, Need for IV Antibiotics, Risk of Complication if Not Cared For in Hospital 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 Will start IV Bumex. As far as the chest tubes are concerned I am impressed with the reduction in output. Hopefully with the Bumex this will continue and we can discontinue the chest tubes. I have started the reduction and steroids at this time and we will put a stop date on antibiotics as well as stop the vancomycin. In usual cases of Pseudomonas pneumonia mortality is excessively high. I complement the nursing and physician staff who have cared for this patient. Plans will be to follow chest tube output potential downgrade to intermediate care unit in the next 24 hours. Continue therapy for his atrial fibrillation.
[2019-04-03] MEDS ORDERED: HALOPERIDOL LACTATE INJ 5 MG/1 ML VIAL IV ONE (22:15)
[2019-04-03] MEDS: VANCOMYCIN HCL 1,000 MG in DEXTROSE 5%-WATER 250 ML IV SCH (22:43)
[2019-04-04] MEDS: INSULIN LISPRO 100 UNIT/ML 3 ML VIAL SUBCUT SCH ×4 (00:25→17:22)
[2019-04-04] MEDS: MEROPENEM 1 GM in NORMAL SALINE 50 ML IV SCH ×3 (02:06→17:05)
[2019-04-04 04:39] LABS: HEMATOCRIT 34.3 % (37.9-51.0); HEMOGLOBIN 11.6 g/dL (13.5-17.0); MEAN CORPUSCULAR HEMOGLOBIN 30.3 pg (27.0-33.4); MEAN CORPUSCULAR HGB CONC 33.7 g/dL (32.0-36.0); MEAN CORPUSCULAR VOLUME 90 fl (80-97); PLATELET COUNT 176 10^3/uL (150-450); RED BLOOD COUNT 3.81 10^6/uL (4.35-5.55); RED CELL DISTRIBUTION WIDTH 13.9 % (11.5-14.0); WHITE BLOOD COUNT 12.2 10^3/uL (4.0-10.5)
[2019-04-04 05:03] LABS: ANION GAP 9 (5-19); BLOOD UREA NITROGEN 82 mg/dL (7-20); CALCIUM 8.2 mg/dL (8.4-10.2); CARBON DIOXIDE 29 mmol/L (22-30); CHLORIDE 98 mmol/L (98-107); GLUCOSE 192 mg/dL (75-110); POTASSIUM 4.5 mmol/L (3.6-5.0)
[2019-04-04 05:10] LABS: ABSOLUTE LYMPHOCYTES# (MANUAL) 0.4 10^3/uL (0.5-4.7); ABSOLUTE MONOCYTES # (MANUAL) 0.9 10^3/uL (0.1-1.4); BAND NEUTROPHILS % (MANUAL) 1 % (3-5); BASOPHILS % (MANUAL) 0 % (0-2); EOSINOPHILS % (MANUAL) 1 % (0-6); HYPOCHROMASIA SLIGHT; LYMPHOCYTES % (MANUAL) 3 % (13-45); MONOCYTES % (MANUAL) 7 % (3-13); PLATELET COMMENT ADEQUATE; SEGMENTED NEUTROPHILS % (MAN) 88 % (42-78); TOTAL CELLS COUNTED 100
[2019-04-04] MEDS: BUMETANIDE INJ/PF 1 MG/4 ML SDV IV SCH ×2 (10:07→22:56)
[2019-04-04] MEDS: METHYLPREDNISOLONE INJ 40 MG/1 ML SDV IV SCH ×2 (10:08→22:57)
[2019-04-04] MEDS: METOPROLOL TARTRATE 50 MG TABLET NG SCH ×2 (10:08→22:57)
[2019-04-04] MEDS: GABAPENTIN 300 MG CAPSULE NG SCH ×2 (10:09→22:57)
[2019-04-04] MEDS: AMLODIPINE BESYLATE 10 MG TABLET PO SCH (10:09)
[2019-04-04] MEDS: APIXABAN 2.5 MG TABLET PO SCH ×2 (10:22→18:44)
[2019-04-04 18:29] LABS: ANION GAP 7 (5-19); BLOOD UREA NITROGEN 79 mg/dL (7-20); CALCIUM 8.1 mg/dL (8.4-10.2); CARBON DIOXIDE 31 mmol/L (22-30); CHLORIDE 95 mmol/L (98-107); GLUCOSE 241 mg/dL (75-110); POTASSIUM 4.7 mmol/L (3.6-5.0)
--- NOTE | 2019-04-04 20:15 | PDOC PROGRESS REPORT ---
Subjective Progress Note for:: 04/04/19 Subjective:: 04.04.2019: Patient developed slight delirium late yesterday afternoon and continued into the evening. Despite constant instruction to stay in bed, he eventually got out of bed. No real change in cognition this morning and although has some memory deficits from last night, has none now. Bp discrepancy in arm cuff pressures. Breathing improved. Ramirez removed 2 days ago. Patient is unable to urinate today. 04.03.2019: Patient continues to improve and had minimal output from his chest tubes. Said nurses have noted a slight increase in the crackles which were diminished earlier. The chest tubes were clamped today and after 4 hours had some increased output but not dramatic. In concern for persistent output the clamps were left open to monitor. It has been quite active and wants to get out of bed. He is working actively with physical therapy. 04.02.2019: Patient continues to have sustained improvement in overall condition. He was successfully extubated 48 hours ago and has had no respiratory difficulty. He has been maintained on high flow with reduction in FiO2 and pressure requirements. He was able to tolerate physical therapy today. Notably he continues to have significant chest tube output with right greater than left. He has been hemodynamically stable and afebrile. He has no complai nts specifically. Reason For Visit: ACUTE HYPOXIC RESPIRATORY FAILURE,ACUTE KIDNEY Physical Exam Vital Signs: Temp Pulse Resp BP Pulse Ox 97.6 F 72 19 108/68 98 04/04/19 08:00 04/04/19 08:00 04/04/19 08:56 04/04/19 08:00 04/04/19 08:56 Intake & Output 04/03/19 04/04/19 04/05/19 06:59 06:59 06:59 Intake Total 3410 647 Output Total 1890 4375 410 Balance 1520 -6737 -410 Weight 109.5 kg 107.1 kg Physical Exam: Nontoxic but ill-appearing 68-year-old male no acute distress awake alert oriented x3 General appearance: PRESENT: no acute distress, cooperative, obese Head exam: PRESENT: atraumatic, normocephalic Eye exam: PRESENT: conjunctiva pink, EOMI, PERRLA. ABSENT: conjunctival injection, nystagmus, scleral icterus Mouth exam: PRESENT: moist, neck supple Teeth exam: PRESENT: poor dentation Neck exam: ABSENT: carotid bruit, JVD, lymphadenopathy, meningismus, tenderness, thyromegaly Respiratory exam: PRESENT: crackles - very minimal today. Left side dramatically improved. ABSENT: accessory muscle use Cardiovascular exam: PRESENT: RRR, +S1, +S2 Pulses: PRESENT: normal carotid pulses, normal dorsalis pedis pul Vascular exam: PRESENT: normal capillary refill GI/Abdominal exam: PRESENT: normal bowel sounds, soft, other - Mild discomfort with palpation of supra-pubic region. ABSENT: ascites, distended, firm, guarding, mass, Deleon's sign, rebound, rigid, tenderness Gentrourinary exam: ABSENT: indwelling catheter Extremities exam: PRESENT: full ROM, pedal edema. ABSENT: joint swelling Musculoskeletal exam: PRESENT: normal inspection. ABSENT: deformity, dislocation, tenderness Neurological exam: PRESENT: alert, awake, oriented to person, oriented to place, oriented to time, oriented to situation, CN II-XII grossly intact. ABSENT: motor sensory deficit Psychiatric exam: PRESENT: appropriate affect. ABSENT: agitated, anxious Skin exam: PRESENT: intact, normal color. ABSENT: cyanosis, erythema, jaundice, mottled Results Laboratory Results: 04/04/19 03:51 04/04/19 03:51 04/04/19 04/04/19 03:51 03:51 WBC 12.2 H RBC 3.81 L Hgb 11.6 L Hct 34.3 L MCV 90 MCH 30.3 MCHC 33.7 RDW 13.9 Plt Count 176 Seg Neutrophils % Not Reportable Sodium 135.9 L Potassium 4.5 Chloride 98 Carbon Dioxide 29 Anion Gap 9 BUN 82 H Creatinine 1.63 H Est GFR ( Amer) 51 L Glucose 192 H Calcium 8.2 L Phosphorus 5.0 H Magnesium 2.1 03/30/19 16:00 Pleural Fluid - Left Pleural Effusion Gram Stain - Final 03/30/19 16:00 Pleural Fluid - Left Pleural Effusion Body Fluid Culture - Final NO AEROBIC OR ANAEROBIC ORGANISMS RECOVERED 03/20/19 03/20/19 03/20/19 02:40 02:40 07:06 Creatine Kinase 109 CK-MB (CK-2) 2.86 Cancelled Troponin I 0.040 Cancelled NT-Pro-B Natriuret Pep 4540 H 03/20/19 03/20/19 03/20/19 07:54 12:30 17:52 Creatine Kinase CK-MB (CK-2) 10.90 H Troponin I 0.648 1.770 3.420 NT-Pro-B Natriuret Pep 03/21/19 03/21/19 03/21/19 06:10 06:10 11:57 Creatine Kinase 353 H 258 H CK-MB (CK-2) 17.60 H Troponin I 5.350 NT-Pro-B Natriuret Pep 03/21/19 03/21/19 03/21/19 11:57 16:08 16:08 Creatine Kinase 232 H CK-MB (CK-2) 13.90 H 11.60 H Troponin I 4.320 4.530 NT-Pro-B Natriuret Pep 03/22/19 03/24/19 05:31 03:49 Creatine Kinase CK-MB (CK-2) Troponin I 3.240 3.270 NT-Pro-B Natriuret Pep Impressions: Vascular Ultrasound 03/21/19 07:41 IMPRESSION: NO DOPPLER EVIDENCE OF HEMODYNAMICALLY SIGNIFICANT RENAL ARTERY STENOSIS. Renal Ultrasound 03/22/19 00:00 IMPRESSION: No hydronephrosis Mild increased cortical echogenicity from medical renal disease Head CT 03/24/19 00:00 IMPRESSION: NO ACUTE INTRACRANIAL FINDINGS. EVIDENCE OF ACUTE STROKE: NO. KUB X-Ray 03/25/19 00:00 IMPRESSION: Nasogastric tube tip and side port in the stomach. Persistent left retrocardiac consolidation worrisome for pneumonia Chest CT 03/28/19 00:00 IMPRESSION: Persistent moderate to large bilateral pleural effusions with dense consolidation in the lung bases consistent with pneumonia. Thoracentesis Ultrasound 03/30/19 00:00 IMPRESSION: Successful small bore left-sided chest tube placement utilizing ultrasound guidance as detailed above. Chest X-Ray 04/03/19 06:00 IMPRESSION: Improved aeration of the bases, stable left retrocardiac opacity that could represent either atelectasis or (in the proper clinical setting) consolidation, and bibasilar pleural catheters without a sizable pleural effusion. Assessment & Plan - Diagnosis (1) Acute respiratory failure Qualifiers: Respiratory failure complication: hypoxia and hypercapnia Qualified Code(s): J96.01 - Acute respiratory failure with hypoxia; J96.02 - Acute respiratory failure with hypercapnia Is this a current diagnosis for this admission?: Yes (2) Bilateral pleural effusion Is this a current diagnosis for this admission?: Yes (3) Acute hypoxemic respiratory failure Is this a current diagnosis for this admission?: Yes (4) Acute kidney injury Is this a current diagnosis for this admission?: Yes (5) Atrial fibrillation Qualifiers: Atrial fibrillation type: paroxysmal Qualified Code(s): I48.0 - Paroxysmal atrial fibrillation Is this a current diagnosis for this admission?: Yes (6) CKD (chronic kidney disease) stage 3, GFR 30-59 ml/min Is this a current diagnosis for this admission?: Yes - Time Time Spent with patient: 35 or more minutes Total Critical Time (Minutes): 35 Medications reviewed and adjusted accordingly: Yes Anticipated discharge: Acute Rehab Within: within 48 hours - Plan Summary Plan Summary: 04.04.19: Patient continues to show improvement overall. He has had decrease in his chest tube output and replace them both on clamp this afternoon. We will follow him clinically and symptomatically. Check chest x-ray in the morning. We will unclamp the chest tube in the morning to determine how much fluid has drained. We will continue diuresis and check a BMP mag and phosphorus to ensure electrolyte stability. We will continue physical therapy. I am concerned about transferring him to a lower level of care given his nighttime delirium with his chest tubes. He did pull out 2 of his IVs last night necessitating the use of Haldol and replacement of his IVs. Continue to treat him supportively continue his NOAC. He does appear to need acute rehab for rehabilitation. To new antibiotics for a total of 7 days and a stop date has been determined. Continue to follow his glucose and do not start his Glucophage until his creatinine has improved. 04.03.19 Patient continues to improve however appears to have some degree of volume overload. Will start IV Bumex. As far as the chest tubes are concerned I am impressed with the reduction in output. Hopefully with the Bumex this will continue and we can discontinue the chest tubes. I have started the reduction and steroids at this time and we will put a stop date on antibiotics as well as stop the vancomycin. In usual cases of Pseudomonas pneumonia mortality is excessively high. I complement the nursing and physician staff who have cared for this patient. Plans will be to follow chest tube output potential downgrade to intermediate care unit in the next 24 hours. Continue therapy for his atrial fibrillation. The care of a critically ill patient is dynamic. This note represents a static time-frame in the admission process. Orders and treatments may be given simultaneously and urgently, and time is not student services representative of the treatment process. This patient requires Critical Care secondary to life-threatening organ or limb dysfunction. Without the need for Critical Care services, the patient is at risk for increased mortality and morbidity. MPOA:
[2019-04-04 22:28] LABS: VANCOMYCIN,TROUGH 20.1 ug/mL (5.0-20.0)
[2019-04-04] MEDS: VANCOMYCIN HCL 1,000 MG in DEXTROSE 5%-WATER 250 ML IV SCH (23:43)
--- NOTE | 2019-04-04 23:43 | RADIOLOGY REPORT (SQ) ---
EXAM DESCRIPTION: XR CHEST 1 VIEW COMPLETED DATE/TME: 04/04/2019 00:00 CLINICAL HISTORY: 68 years Male, pulled chest tube COMPARISON: One day prior. NUMBER OF VIEWS/TECHNIQUE: 1/AP FINDINGS: Small linear atelectasis or scar of the left lower lung field. Atherosclerotic vascular disease. Normal cardiac silhouette size. No pneumothorax. Stable bony thorax. IMPRESSION: No significant change.
[2019-04-04] MEDS: HALOPERIDOL LACTATE INJ 5 MG/1 ML VIAL IV PRN (23:56)
[2019-04-05] MEDS: INSULIN LISPRO 100 UNIT/ML 3 ML VIAL SUBCUT SCH ×4 (00:02→17:26)
[2019-04-05] MEDS: MEROPENEM 1 GM in NORMAL SALINE 50 ML IV SCH ×2 (02:30→11:35)
[2019-04-05 04:09] LABS: ABSOLUTE BASOPHILS # (AUTO) 0.1 10^3/uL (0.0-0.2); ABSOLUTE EOSINOPHILS # (AUTO) 0.3 10^3/uL (0.0-0.6); ABSOLUTE LYMPHOCYTES (AUTO) 0.9 10^3/uL (0.5-4.7); ABSOLUTE MONOCYTES (AUTO) 1.3 10^3/uL (0.1-1.4); ABSOLUTE NEUT (AUTO) 9.8 10^3/uL (1.7-8.2); BASOPHILS % (AUTO) 0.5 % (0-2); EOSINOPHILS % (AUTO) 2.1 % (0-6); HEMATOCRIT 34.1 % (37.9-51.0); HEMOGLOBIN 11.4 g/dL (13.5-17.0); LYMPHOCYTES % (AUTO) 7.6 % (13-45); MEAN CORPUSCULAR HEMOGLOBIN 30.1 pg (27.0-33.4); MEAN CORPUSCULAR HGB CONC 33.4 g/dL (32.0-36.0); MEAN CORPUSCULAR VOLUME 90 fl (80-97); MONOCYTES % (AUTO) 10.7 % (3-13); RED BLOOD COUNT 3.78 10^6/uL (4.35-5.55); RED CELL DISTRIBUTION WIDTH 14.1 % (11.5-14.0); SEGMENTED NEUTROPHILS % (AUTO) 79.1 % (42-78); TOTAL CELLS COUNTED % (AUTO) 100 %; WHITE BLOOD COUNT 12.4 10^3/uL (4.0-10.5)
[2019-04-05 04:26] LABS: PLATELET COUNT 156 10^3/uL (150-450)
[2019-04-05 04:27] LABS: ANION GAP 5 (5-19); BLOOD UREA NITROGEN 73 mg/dL (7-20); CALCIUM 8.1 mg/dL (8.4-10.2); CARBON DIOXIDE 33 mmol/L (22-30); CHLORIDE 95 mmol/L (98-107); GLUCOSE 254 mg/dL (75-110); PHOSPHORUS 4.4 mg/dL (2.5-4.5); POTASSIUM 4.4 mmol/L (3.6-5.0)
--- NOTE | 2019-04-05 08:26 | RADIOLOGY REPORT (SQ) ---
EXAM DESCRIPTION: CHEST SINGLE VIEW COMPLETED DATE/TIME: 04/05/2019 6:38 am REASON FOR STUDY: pleural effusions COMPARISON: CT chest 03/28/2019 Chest films 03/28/2019, 04/02/2019, 04/03/2019, 04/04/2019 EXAM PARAMETERS: NUMBER OF VIEWS: One view. TECHNIQUE: Single frontal radiographic view of the chest acquired. RADIATION DOSE: NA LIMITATIONS: None. FINDINGS: LUNGS AND PLEURA: Right-sided pleural space pigtail catheter is unchanged. No pneumothora x. No pleural effusion. No focal infiltrates. No left-sided pleural effusion or pneumothorax. MEDIASTINUM AND HILAR STRUCTURES: No masses. Contour normal. HEART AND VASCULAR STRUCTURES: Heart normal in size. Normal vasculature. BONES: No acute findings. HARDWARE: Right-sided pleural space pigtail catheter unchanged OTHER: No other significant finding. IMPRESSION: Persistent right-sided pleural space pigtail catheter. No pleural effusion or pneumotho rax right side. Left hemithorax unremarkable TECHNICAL DOCUMENTATION: JOB ID: [id number] [employer]- All Rights Reserved Reading location - IP/workstation name: [email or web address]
[2019-04-05] MEDS: IPRATROPIUM/ALBUTEROL 0.5-2.5 MG/3 ML AMPUL NEB PRN ×2 (09:39→16:41)
[2019-04-05] MEDS: BUMETANIDE INJ/PF 1 MG/4 ML SDV IV SCH (11:36)
[2019-04-05] MEDS: METOPROLOL TARTRATE 50 MG TABLET NG SCH ×2 (11:37→23:07)
[2019-04-05] MEDS: GABAPENTIN 300 MG CAPSULE NG SCH ×2 (11:37→23:07)
[2019-04-05] MEDS: AMLODIPINE BESYLATE 10 MG TABLET PO SCH (11:37)
[2019-04-05] MEDS: APIXABAN 2.5 MG TABLET PO SCH ×2 (11:37→17:27)
[2019-04-05] MEDS: METHYLPREDNISOLONE INJ 40 MG/1 ML SDV IV SCH ×2 (11:38→23:06)
--- NOTE | 2019-04-05 11:50 | Physical Med & Rehab Consult ---
Consultation Consult Date: 04/05/19 Provider Consulted: ANITA CONRAD Consult reason:: Evaluation for admission to acute inpatient rehabilitation History of Present Illness Admission Date/PCP: 03/20/19 08:23 REYNA PENN MD Patient complains of: Intermittent shortness of breath and nausea History of Present Illness: JOSE GARCIA is a 68-year-old male with past medical history of [id number] diabetes mellitus type 2, hypertension, hyperlipidemia, chronic kidney disease stage III, 80-heok-osar smoking history (quit about 4 months ago), COPD, and no past surgical history admitted to [facility] on 03/20/2019 with progressive dyspnea and being diagnosed with acute hypoxemic respiratory failure secondary to COPD exacerbation and acute kidney injury secondary to dehydration. He was initially placed on BiPAP but required intubation and transferred to the intensive care unit within 1 day of admission. The patient spent 11 days bedbound in the intensive care unit on the ventilator, and he was extubated on 03/31/2019. ICU course included diagnosis and treatment for Pseudomonas pneumonia, large bilateral pleural effusions requiring chest tube placement, paroxysmal atrial fibrillation initiated on Eliquis anticoagulation, acute hypoglycemia and hyperglycemia, NSTEMI due to demand ischemia, and delirium. The patient remains on high flow nasal cannula oxygen at the moment. Physical medicine and rehabilitation consultation was requested to evaluate the patient for admission to acute inpatient rehabilitation. Today, the patient was seen and examined in the intensive care unit. He complains of nausea and shortness of breath at times, but he is not experiencing either of these currently. He also admits to weakness, especially of the lower extremities, resulting in mobility and ADL dysfunction. He is unsure when his last bowel movement was, and he admits to some urinary retention. Past Medical History Cardiac Medical History: Reports: Hypertension Denies: Coronary Artery Disease, Myocardial Infarction Pulmonary Medical History: Reports: Chronic Obstructive Pulmonary Disease (COPD) Denies: Asthma, Bronchitis, Pneumonia EENT Medical History: Reports: None Neurological Medical History: Reports: None Denies: Seizures Endocrine Medical History: Reports: Diabetes Mellitus Type 2 Renal/ Medical History: Reports: None Malignancy Medical History: Reports: None GI Medical History: Reports: None Musculoskeltal Medical History: Reports: None Denies: Arthritis Skin Medical History: Reports: None Psychiatric Medical History: Reports: None Traumatic Medical History: Reports: None Hematology: Denies: Anemia Infectious Medical History: Reports: None Past Surgical History Past Surgical History: Reports: None Social History Lives with: Family Smoking Status: Former Smoker Electronic Cigarette use?: No Frequency of Alcohol Use: None Hx Recreational Drug Use: No Drugs: None Hx Prescription Drug Abuse: No Past Social History Note: Jose Garcia lives with his in a 1 level home with 5 steps to enter and 0 steps to the bedroom and bathroom. He is retired. 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 Prior Functional Status: Active and independent with mobility and all ADLs. Ambulates without an assist device. Current Functional Status: Per therapy notes, the patient currently requires minimum to moderate assistance of 2 people for bed mobility, minimum to moderate assistance of 2 people for transfers, minimum assistance of 2 people for sidestepping 5 steps x2 with a rolling walker, and minimum assistance of 2 people for lower body dressing. Family History: His mother had diabetes mellitus, and his father of suicide. Family History Family History: Reviewed & Not Pertinent Parental Family History Reviewed: Yes Children Family History Reviewed: NA Sibling(s) Family History Reviewed.: NA Medication/Allergy Home Medications: Atorvastatin Calcium [Lipitor 40 mg Tablet] 40 mg PO QHS 03/20/19 Fenofibrate,Micronized [Fenofibrate] 134 mg PO DAILY 03/20/19 Gabapentin [Neurontin 300 mg Capsule] 300 mg PO Q12 03/20/19 Glipizide [Glucotrol 5 mg Tablet] 5 mg PO BID 03/20/19 Lisinopril/Hydrochlorothiazide [Lisinopril-Hctz 10-12.5 mg Tab] 1 tab PO DAILY 03/20/19 Metformin HCl [Glucophage 500 mg Tablet] 1,000 mg PO BID 03/20/19 Umeclidinium Brm/Vilanterol Tr [Anoro Ellipta 62.5-25 Mcg INH] 1 puff IH DAILY 03/20/19 Allergies/Adverse Reactions: No Known Allergies Allergy (Verified 02/15/18 08:16) Review of Systems Review of Systems: Constitutional: No fevers, chills, sweats, weight loss Eye: No recent visual problems, no blurry vision, no double vision ENMT: No ear pain, nasal congestion, sore throat Respiratory: Positive for intermittent shortness of breath Cardiovascular: No chest pain, palpitations, syncope Gastrointestinal: Positive for intermittent nausea without vomiting. Positive for constipation. Genitourinary: No hematuria, dysuria, flank or suprapubic pain Jewel/Lymph: Negative for bruising tendency, swollen lymph glands Endocrine: Negative for excessive thirst, excessive hunger, extreme fatigue Musculoskeletal: No back pain, neck pain, joint pain, muscle pain, decreased range of motion Integumentary: No rash, pruritus, abrasions Neurologic: No headaches, numbness, speech problems. Focal weakness of bilateral lower extremities. Psychiatric: Anxious about his current situation. Physical Exam Vital Signs: Temp Pulse Resp BP Pulse Ox 98.7 F 69 18 144/59 H 94 04/05/19 06:00 04/05/19 09:39 04/05/19 10:00 04/05/19 09:07 04/05/19 10:00 Intake & Output 04/04/19 04/05/19 04/06/19 06:59 06:59 06:59 Intake Total 647 350 200 Output Total 3665 2710 Balance -3018 -2360 200 Weight 107.1 kg 106.3 kg Exam: General: Awake and Alert. No acute distress. Resting comfortably in bed. Head: Normocephalic. Atraumatic. Eyes: Pupils equal, round, and reactive to light. EOMI. Sclera white. Ears: No drainage noted. Nose: Nares normal & without exudate. High flow nasal cannula oxygen in place. Oropharynx: Moist mucous membranes. Edentulous. Neck: Supple movements. Cardiovascular: Regular rate & rhythm. No murmurs, rubs, or gallops appreciated. Pulmonary: Mild expiratory wheezing bilaterally. No increased work of breathing. Right chest tube in place. Gastrointestinal: Abdomen soft, non-tender, non-distended. Normoactive bowel sounds. Skin: Texture and turgor normal. Warm and dry. Multiple ecchymoses in the upper extremities related to blood draws. Psychiatric: Judgement and insight appear to be good. Patient is oriented to date, location, and situation. Affect appropriate. Extremities: Arthritic changes. Mild edema of the right hand. Neurological: CN III-XII grossly intact. Sensation to light touch is grossly in tact. Tone is normal. Speech is fluent with good content and without dysarthria. Muscle Strength: Full 5/5 strength in all major muscle groups of the 4 extremities, except 4/5 strength of bilateral shoulder abductors and 3/5 strength of bilateral hip flexors. Results Laboratory Results: 04/05/19 03:56 04/05/19 03:56 04/04/19 04/05/19 04/05/19 17:45 03:56 03:56 WBC 12.4 H RBC 3.78 L Hgb 11.4 L Hct 34.1 L MCV 90 MCH 30.1 MCHC 33.4 RDW 14.1 H Plt Count 156 Seg Neutrophils % 79.1 H Sodium 132.7 L 133.0 L Potassium 4.7 4.4 Chloride 95 L 95 L Carbon Dioxide 31 H 33 H Anion Gap 7 5 BUN 79 H 73 H Creatinine 1.55 H 1.57 H Est GFR ( Amer) 54 L 54 L Glucose 241 H 254 H Calcium 8.1 L 8.1 L Phosphorus 4.4 Magnesium 1.9 03/26/19 12:30 Tracheal Aspirate Gram Stain - Final 03/26/19 12:30 Tracheal Aspirate Sputum Culture - Final Pseudomonas Aeruginosa Normal Brittnee Absent 03/20/19 03/20/19 03/20/19 02:40 02:40 07:06 Creatine Kinase 109 CK-MB (CK-2) 2.86 Cancelled Troponin I 0.040 Cancelled NT-Pro-B Natriuret Pep 4540 H 03/20/19 03/20/19 03/20/19 07:54 12:30 17:52 Creatine Kinase CK-MB (CK-2) 10.90 H Troponin I 0.648 1.770 3.420 NT-Pro-B Natriuret Pep 03/21/19 03/21/19 03/21/19 06:10 06:10 11:57 Creatine Kinase 353 H 258 H CK-MB (CK-2) 17.60 H Troponin I 5.350 NT-Pro-B Natriuret Pep 03/21/19 03/21/19 03/21/19 11:57 16:08 16:08 Creatine Kinase 232 H CK-MB (CK-2) 13.90 H 11.60 H Troponin I 4.320 4.530 NT-Pro-B Natriuret Pep 03/22/19 03/24/19 05:31 03:49 Creatine Kinase CK-MB (CK-2) Troponin I 3.240 3.270 NT-Pro-B Natriuret Pep Impressions: Vascular Ultrasound 03/21/19 07:41 IMPRESSION: NO DOPPLER EVIDENCE OF HEMODYNAMICALLY SIGNIFICANT RENAL ARTERY STENOSIS. Renal Ultrasound 03/22/19 00:00 IMPRESSION: No hydronephrosis Mild increased cortical echogenicity from medical renal disease Head CT 03/24/19 00:00 IMPRESSION: NO ACUTE INTRACRANIAL FINDINGS. EVIDENCE OF ACUTE STROKE: NO. KUB X-Ray 03/25/19 00:00 IMPRESSION: Nasogastric tube tip and side port in the stomach. Persistent left retrocardiac consolidation worrisome for pneumonia Chest CT 03/28/19 00:00 IMPRESSION: Persistent moderate to large bilateral pleural effusions with dense consolidation in the lung bases consistent with pneumonia. Thoracentesis Ultrasound 03/30/19 00:00 IMPRESSION: Successful small bore left-sided chest tube placement utilizing ultrasound guidance as detailed above. Chest X-Ray 04/05/19 06:00 IMPRESSION: Persistent right-sided pleural space pigtail catheter. No pleural effusion or pneumothorax right side. 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 1. Gait and ADL Dysfunction secondary to critical illness myopathy. - Continue PT and OT to maximize mobility, safety, endurance, and self-care. 2. Critical illness myopathy - The patient spent 11 days bedbound in the intensive care unit on the ventilator and now has symmetrical proximal weakness of all 4 extremities. - He remains in the ICU for further care at the moment. 3. Acute hypoxemic respiratory failure - Secondary to COPD exacerbation and pneumonia - Supplemental oxygen is being weaned and there is a plan to remove the right chest tube today. -Continue management per tearer press clipping 4. Acute kidney injury on chronic kidney disease - BUN/creatinine continuing to improve - Continue management per nephrology 5. Disposition -Based on the patient's diagnosis, medical co-morbidities, and current functional status, he is a good candidate for acute inpatient rehabilitation as he would benefit from 3 hours per day of intensive therapies in at least 2 disciplines under the close medical supervision of a physician. The patient is expected to make significant gains in a relatively short period of time to the point that he can safely be discharged home with supervision and assistance from family. The patient is not quite medically ready for discharge yet, so we will plan to admit the patient to acute inpatient rehabilitation at [facility] in [place] on 04/09/2019, barring any unforeseen events or complications. Nursing should call the [facility] acute inpatient rehabilitation nurses station at [phone] to provide report before the patient is discharged on Tuesday. This case was discussed with the patient's acute care therapists and Dr. Pope on the floor. Thank you for allowing us to participate in the care of this patient. Please call with any questions. A total of 65 minutes was spent on [id number] communication with the patient and coordination of care.
--- NOTE | 2019-04-05 14:07 | Progress Note ---
Provider Note Provider Note: CARDIOLOGY PROGRESS NOTE by Dr. Simran Sanchez on 04/05/2019. OBJECTIVE: The patient is less confused. To me he seems to be oriented x2. He denies any chest pain or discomfort. There is no recurrence of atrial fibrillation. There is no ventricular arrhythmia seen. The patient denies any shortness of breath cough wheezing or PND orthopnea or leg edema. There is no TIA CVA symptoms. There is no bleeding on Eliquis. physical EXAMINATION: The patient mildly obese. In no acute distress. Selected Entries 04/05/19 04/05/19 04/05/19 14:06 15:00 15:06 Heart Rate ( 76 Monitors) Respiratory 28 H Rate Blood Pressure 132/55 H 132/54 H Blood Pressure 80 80 Mean O2 Sat by Pulse 97 Oximetry Oxygen Delivery Method ( includes room air) Oxygen Flow Rate 04/05/19 16:41 Heart Rate ( Monitors) Respiratory 20 Rate Blood Pressure Blood Pressure Mean O2 Sat by Pulse Oximetry Oxygen Delivery Nasal Cannula Method ( includes room air) Oxygen Flow 2 Rate HEAD: Is atraumatic. Normocephalic. EYES: Pupils are equal round reactive to light. ENT is negative. NECK: Supple. There is no JVD. There is mild accessory muscle respiration use. Trachea central. LUNGS: There is diminished air entry and prolonged expiration. On percussion there is hyperresonance. There are few occasional scattered rhonchi. There is no rales or dullness or wheezing.. HEART: S1-S2 is heard. There is no S3 gallop. There is no S4 gallop there is systolic murmur in the left sternal border and the apex there is no rub. ABDOMEN: Is obese. There is no hepatospleno megaly. Bowel sounds well heard. EXTREMITIES: Femorals are diminished there is no femoral bruits. Leg pulses are diminished. There is trace pedal edema in the right lower extremity. There is no DVT or cellulitis. There is no calf tenderness. SATURATOR TENDER: The patient is conscious awake alert oriented x3 with no focal deficits. PSYCHIATRIC: Patient's judgment insight are intact her affect is normal. ECHOCARDIOGRAM: The patient's repeat follow-up limited echo shows normal left ventricle ejection fraction, with no obvious wall motion of normality. There is trace tricuspid regurgitation. TR jet is insufficient to calculate right vent ricular systolic pressure. Labs- All tests 24 hr 04/04/19 04/05/19 04/05/19 23:59 03:56 03:56 WBC 12.4 H RBC 3.78 L Hgb 11.4 L Hct 34.1 L MCV 90 MCH 30.1 MCHC 33.4 RDW 14.1 H Plt Count 156 Lymph % (Auto) 7.6 L [place] % (Auto) 10.7 Eos % (Auto) 2.1 Baso % (Auto) 0.5 Absolute Neuts (auto) 9.8 H Absolute Lymphs (auto) 0.9 Absolute Monos (auto) 1.3 Absolute Eos (auto) 0.3 Absolute Basos (auto) 0.1 Seg Neutrophils % 79.1 H Sodium 133.0 L Potassium 4.4 Chloride 95 L Carbon Dioxide 33 H Anion Gap 5 BUN 73 H Creatinine 1.57 H Est GFR ( Amer) 54 L Est GFR (MDRD) Non-Af 44 L Glucose 254 H POC Glucose 283 H Calcium 8.1 L Phosphorus 4.4 Magnesium 1.9 04/05/19 04/05/19 11:27 17:20 WBC RBC Hgb Hct MCV MCH MCHC RDW Plt Count Lymph % (Auto) [place] % (Auto) Eos % (Auto) Baso % (Auto) Absolute Neuts (auto) Absolute Lymphs (auto) Absolute Monos (auto) Absolute Eos (auto) Absolute Basos (auto) Seg Neutrophils % Sodium Potassium Chloride Carbon Dioxide Anion Gap BUN Creatinine Est GFR ( Amer) Est GFR (MDRD) Non-Af Glucose POC Glucose 176 H 333 H Calcium Phosphorus Magnesium Chest X-Ray 04/05/19 00:00 IMPRESSION: No pneumothorax status post catheter removal Chest X-Ray 04/05/19 06:00 IMPRESSION: Persistent right-sided pleural space pigtail catheter. No pleural effusion or pneumothorax right side. Left hemithorax unremarkable IMPRESSION/RECOMMENDATION: 1. Acute on probably chronic respiratory failure: This is resolved. The patient has been extubated. Initially his O2 sats was slightly low but they have come back up to normal. Continue antibiotics. 2. COPD: Continue bronchodilators and antibiotics. 3. Elevated troponin I: Non-ST elevation CT versus secondary to supply demand mismatch. Later when stable and the chest tubes are out then would recommend having an IV Lexiscan cardio light stress test done on the patient. This has been discussed with the patient. 4. Acute on chronic kidney disease. The patient's current baseline CKD stage III. Avoid nephrotoxic drugs. 5. Bilateral lower lobe pneumonia with consolidation and most likely para- pneumonic effusions: Continue antibiotics. The patient had a pigtail inserted into the right pleural cavity with drainage of fluid. There is almost no pleural fluid on the right side. There is still left pleural effusion and consolidation present. The sample sent from the left pleural fluid is a trans udate. Both pigtails in the pleural cavity been removed, and clinically there is no reaccumulation of pleural fluid. 6.Paroxysmal atrial flutter. There is no recurrence. The patient's Eliquis has been restarted. 7. History of hypertension: At present patient blood pressure is very high. 8. Diabetes mellitus: Continue insulin as per blood sugar checks. 9. Possible interstitial lung disease.: The CT scan is reported as findings which did not support ILD. But will discuss with radiology. 10. Episodic heart failure secondary to hypertensive blood pressure spikes. Note that the patient's LV ejection fraction is normal. 11. Peripheral vascular disease as per history. Medications reviewed. Management plan discussed with attending provider on the case. Note that the patient be downgraded to [facility]. He will probably go to a short-term rehab facility. Once the patient comes out of rehab then would recommend the patient have an IV Lexiscan Cardiolite stress test to make sure he does not have underlying coronary artery disease. Medical decision making is of moderate complexity. 40 minutes spent on this patient with more than 50% of time spent in direct patient care. Will follow.
--- NOTE | 2019-04-05 15:18 | RADIOLOGY REPORT (SQ) ---
EXAM DESCRIPTION: CHEST SINGLE VIEW COMPLETED DATE/TIME: 04/05/2019 2:30 pm REASON FOR STUDY: post tube removal, right chest COMPARISON: 04/05/2019 EXAM PARAMETERS: NUMBER OF VIEWS: One view. TECHNIQUE: Single frontal radiographic view of the chest acquired. RADIATION DOSE: NA LIMITATIONS: None. FINDINGS: LUNGS AND PLEURA: Thoracotomy catheter has been removed from the right side. There is no pneumothorax. MEDIASTINUM AND HILAR STRUCTURES: No masses. Contour normal. HEART AND VASCULAR STRUCTURES: Heart normal in size. Normal vasculature. BONES: No acute findings. HARDWARE: None in the chest. OTHER: No other significant finding. IMPRESSION: No pneumothorax status post catheter removal TECHNICAL DOCUMENTATION: JOB ID: [id number] [employer]- All Rights Reserved Reading location - IP/workstation name: [email or web address]
--- NOTE | 2019-04-05 16:12 | PDOC PROGRESS REPORT ---
Subjective Progress Note for:: 04/05/19 Subjective:: 04.05.19: Patient had Urinar retention yesterday resulting in need for one-time straight cath. This has not reoccurred. Last evening he became anxious and developed nighttime delirium and pulled out his left chest tube. Chest x-ray showed no pneumothorax and no fluid. He has no recollection. He does have unusual sleep patterns. Multiple attempts have been made to reset his day night patterns and steroids have been reduced. His noted an area the tip of his penis that she was concerned may be a "pimple". He denies any shortness of breath today no chest pain. He said minimal to scant output from his right chest tube. This was removed during rounds at bedside without difficulty. Has diuresed well and has developed a slight bicarbonate low and a slight increase in his creatinine. For this reason he has not been placed on his Glucophage. Diuresis has been held. Today is the last day of his antibiotics. 04.04.2019: Patient developed slight delirium late yesterday afternoon and continued into the evening. Despite constant instruction to stay in bed, he eventually got out of bed. No real change in cognition this morning and although has some memory deficits from last night, has none now. Bp discrepancy in arm cuff pressures. Breathing improved. Ramirez removed 2 days ago. Patient is unable to urinate today. 04.03.2019: Patient continues to improve and had minimal output from his chest tubes. Said nurses have noted a slight increase in the crackles which were diminished earlier. The chest tubes were clamped today and after 4 hours had some increased output but not dramatic. In concern for persistent output the clamps were left open to monitor. It has been quite active and wants to get out of bed. He is working actively with physical therapy. 04.02.2019: Patient continues to have sustained improvement in overall condition. He was successfully extubated 48 hours ago and has had no respiratory difficulty. He has been maintained on high flow with reduction in FiO2 and pressure requirements. He was able to tolerate physical therapy today. Notably he continues to have significant chest tube output with right greater than left. He has been hemodynamically stable and afebrile. He has no complaints specifically. Reason For Visit: ACUTE HYPOXIC RESPIRATORY FAILURE,ACUTE KIDNEY Physical Exam Vital Signs: Temp Pulse Resp BP Pulse Ox 98.7 F 69 18 144/59 H 94 04/05/19 06:00 04/05/19 09:39 04/05/19 10:00 04/05/19 09:07 04/05/19 10:00 Intake & Output 04/04/19 04/05/19 04/06/19 06:59 06:59 06:59 Intake Total 647 350 200 Output Total 3665 4150 Balance -3018 -2360 200 Weight 107.1 kg 106.3 kg Physical Exam: Ill appearing but no acute distress awake alert oriented x3 General appearance: PRESENT: no acute distress, cooperative, well-developed, well-nourished Head exam: PRESENT: atraumatic, normocephalic Eye exam: PRESENT: conjunctiva pink, EOMI, PERRLA. ABSENT: conjunctival injection, conjunctiva pale, nystagmus, scleral icterus Mouth exam: PRESENT: dry mucosa, neck supple Teeth exam: PRESENT: edentulous, other - Dentures are poor fitting Neck exam: PRESENT: full ROM. ABSENT: carotid bruit, JVD, lymphadenopathy, meni ngismus, tenderness, thyromegaly, tracheal deviation Respiratory exam: PRESENT: clear to auscultation zachariah. ABSENT: accessory muscle use, unlabored Cardiovascular exam: PRESENT: RRR, +S1, +S2. ABSENT: clicks, diastolic murmur, gallop, irregular rhythm, rubs, systolic murmur Pulses: PRESENT: normal carotid pulses Vascular exam: PRESENT: normal capillary refill GI/Abdominal exam: PRESENT: normal bowel sounds, soft. ABSENT: ascites, distended, firm, guarding, hernia, mass, Deleon's sign, organolmegaly, rebound, rigid, tenderness Rectal exam: PRESENT: deferred Gentrourinary exam: PRESENT: other - Patient has slight granulation tissue at the dorsal urethra. There is no erythema or lesions. The glans penis is not swollen.. ABSENT: ecchymosis, erythema, scrotal swelling, testicular tenderness, urethral discharge, indwelling catheter Extremities exam: PRESENT: full ROM. ABSENT: joint swelling, pedal edema, tenderness Musculoskeletal exam: PRESENT: normal inspection. ABSENT: ambulatory Neurological exam: PRESENT: alert, awake, oriented to person, oriented to place, oriented to time, oriented to situation, reflexes normal, CN II-XII grossly intact. ABSENT: motor sensory deficit, aphasic Psychiatric exam: PRESENT: appropriate affect. ABSENT: agitated, anxious Focused psych exam: ABSENT: delusional, paranoid, psychomotor agitation, restlessness Skin exam: PRESENT: dry, intact, warm. ABSENT: cyanosis, erythema, jaundice, mottled, petechiae, rash, urticaria, vesicles Results Laboratory Results: 04/05/19 03:56 04/05/19 03:56 04/04/19 04/05/19 04/05/19 17:45 03:56 03:56 WBC 12.4 H RBC 3.78 L Hgb 11.4 L Hct 34.1 L MCV 90 MCH 30.1 MCHC 33.4 RDW 14.1 H Plt Count 156 Seg Neutrophils % 79.1 H Sodium 132.7 L 133.0 L Potassium 4.7 4.4 Chloride 95 L 95 L Carbon Dioxide 31 H 33 H Anion Gap 7 5 BUN 79 H 73 H Creatinine 1.55 H 1.57 H Est GFR ( Amer) 54 L 54 L Glucose 241 H 254 H Calcium 8.1 L 8.1 L Phosphorus 4.4 Magnesium 1.9 03/26/19 12:30 Tracheal Aspirate Gram Stain - Final 03/26/19 12:30 Tracheal Aspirate Sputum Culture - Final Pseudomonas Aeruginosa Normal Brittnee Absent 03/20/19 03/20/19 03/20/19 02:40 02:40 07:06 Creatine Kinase 109 CK-MB (CK-2) 2.86 Cancelled Troponin I 0.040 Cancelled NT-Pro-B Natriuret Pep 4540 H 03/20/19 03/20/19 03/20/19 07:54 12:30 17:52 Creatine Kinase CK-MB (CK-2) 10.90 H Troponin I 0.648 1.770 3.420 NT-Pro-B Natriuret Pep 03/21/19 03/21/19 03/21/19 06:10 06:10 11:57 Creatine Kinase 353 H 258 H CK-MB (CK-2) 17.60 H Troponin I 5.350 NT-Pro-B Natriuret Pep 03/21/19 03/21/19 03/21/19 11:57 16:08 16:08 Creatine Kinase 232 H CK-MB (CK-2) 13.90 H 11.60 H Troponin I 4.320 4.530 NT-Pro-B Natriuret Pep 03/22/19 03/24/19 05:31 03:49 Creatine Kinase CK-MB (CK-2) Troponin I 3.240 3.270 NT-Pro-B Natriuret Pep Impressions: Vascular Ultrasound 03/21/19 07:41 IMPRESSION: NO DOPPLER EVIDENCE OF HEMODYNAMICALLY SIGNIFICANT RENAL ARTERY STENOSIS. Renal Ultrasound 03/22/19 00:00 IMPRESSION: No hydronephrosis Mild increased cortical echogenicity from medical renal disease Head CT 03/24/19 00:00 IMPRESSION: NO ACUTE INTRACRANIAL FINDINGS. EVIDENCE OF ACUTE STROKE: NO. KUB X-Ray 03/25/19 00:00 IMPRESSION: Nasogastric tube tip and side port in the stomach. Persistent left retrocardiac consolidation worrisome for pneumonia Chest CT 03/28/19 00:00 IMPRESSION: Persistent moderate to large bilateral pleural effusions with dense consolidation in the lung bases consistent with pneumonia. Thoracentesis Ultrasound 03/30/19 00:00 IMPRESSION: Successful small bore left-sided chest tube placement utilizing ultrasound guidance as detailed above. Chest X-Ray 04/05/19 06:00 IMPRESSION: Persistent right-sided pleural space pigtail catheter. No pleural effusion or pneumothorax right side. Left hemithorax unremarkable Assessment & Plan - Diagnosis (1) Acute respiratory failure Qualifiers: Respiratory failure complication: hypoxia and hypercapnia Qualified Code(s): J96.01 - Acute respiratory failure with hypoxia; J96.02 - Acute respiratory failure with hypercapnia Is this a current diagnosis for this admission?: Yes (2) Bilateral pleural effusion Is this a current diagnosis for this admission?: Yes (3) Acute hypoxemic respiratory failure Is this a current diagnosis for this admission?: Yes (4) Acute kidney injury Is this a current diagnosis for this admission?: Yes (5) Atrial fibrillation Qualifiers: Atrial fibrillation type: paroxysmal Qualified Code(s): I48.0 - Paroxysmal atrial fibrillation Is this a current diagnosis for this admission?: Yes (6) CKD (chronic kidney disease) stage 3, GFR 30-59 ml/min Is this a current diagnosis for this admission?: Yes (7) Type 2 diabetes mellitus Qualifiers: Diabetes mellitus longterm insulin use: without long term care pharmacist use Diabetes mellitus complication status: without complication Qualified Code(s): E11.9 - Type 2 diabetes mellitus without complications Is this a current diagnosis for this admission?: Yes - Time Time Spent with patient: 35 or more minutes Total Critical Time (Minutes): 35 - 19534 with removal of right chest tube Medications reviewed and adjusted accordingly: Yes Anticipated discharge: Acute Rehab Within: within 72 hours - Plan Summary Plan Summary: 04.05.19: Patient has continued sustained improvement. He has now been transitioned from high flow nasal cannula to routine nasal cannula at 2 L. I personally remove the chest tube at bedside today. With careful vigilance for expiratory phase the tube was removed slightly pulled back and the curve stay suture was clipped the catheter was removed successfully without difficulty. Chest x-ray shows no effusion no pneumothorax. Patient was seen and evaluated by physiatry today in preparation for possible rehab placement. The consulting physician would like his oxygen status to be stable and plan is for potential acute rehab next Tuesday. At that point he had been on high flow so with the reduction in his oxygen these plans might change. From a respiratory standpoint his chest x-ray has improved dramatically. He has stopped his antibiotics and we are reducing his steroids. Careful vigilance for recrudescence of disease will need to be maintained. In studies where Pseudomonas has been an infection worse for the long there was no benefit in prolonged antibiotics beyond 7 days. In those studies any recrudescence of Pseudomonas infection was related to a different subtype. Vancomycin has also been discontinued. Patient's A. fib has been well controlled and is been maintained on his NOAC and has not required any rate control therapy. He has had hyperglycemia has been controlled with subcutaneous insulin. We have not started his metformin because of his acute kidney failure. Kidney function has improved with only a slight uptake secondary to diuresis in the past 24 hours. This is also been successful in removing the pleural effusions. He will need aggressive rehab and he is been undergoing physical therapy. He does develop nighttime delirium which may be related to steroids or his acute illness. His states that this does not happen at home however he has a very altered sleep pattern of waking up confused every 3 hours while at home. He will need to be screened for sleep apnea. This point patient fits criteria for downgrade to IMCU and is been placed on downgrade status. A lot of items include: 1. Assure that there is no further urinary outlet obstruction 2. Watch for nighttime delirium. Haldol has been ordered to help control. 3. Watch for recrudescence of pleural effusions. Unlikely to occur 4. Potential early transition to rehabilitation center. 5. Follow creatinine and consider reintroduction of metformin 6. Follow glucose with insulin supplementation See above 10.9.19: Patient continues to show improvement overall. He has had decrease in his chest tube output and replace them both on clamp this afternoon. We will follow him clinically and symptomatically. Check chest x-ray in the morning. We will unclamp the chest tube in the morning to determine how much fluid has drained. We will continue diuresis and check a BMP mag and phosphorus to ensure electrolyte stability. We will continue physical therapy. I am concerned about transferring him to a lower level of care given his nighttime delirium with his chest tubes. He did pull out 2 of his IVs last night necessitating the use of Haldol and replacement of his IVs. Continue to treat him supportively continue his NOAC. He does appear to need acute rehab for rehabilitation. To new antibiotics for a total of 7 days and a stop date has been determined. Continue to follow his glucose and do not start his Glucophage until his creatinine has improved. 10.8.19 Patient continues to improve however appears to have some degree of volume overload. Will start IV Bumex. As far as the chest tubes are concerned I am impressed with the reduction in output. Hopefully with the Bumex this will continue and we can discontinue the chest tubes. I have started the reduction and steroids at this time and we will put a stop date on antibiotics as well as stop the vancomycin. In usual cases of Pseudomonas pneumonia mortality is excessively high. I complement the nursing and physician staff who have cared for this patient. Plans will be to follow chest tube output potential downgrade to intermediate care unit in the next 24 hours. Continue therapy for his atrial fibrillation. The care of a critically ill patient is dynamic. This note represents a static time-frame in the admission process. Orders and treatments may be given simultaneously and urgently, and time is not route service representative of the treatment process. This patient requires Critical Care secondary to life-threatening organ or limb dysfunction. Without the need for Critical Care services, the patient is at risk for increased mortality and morbidity. MPOA:
--- NOTE | 2019-04-05 22:21 | XCELERA REPORT ---
[address] [address] Transthoracic Echocardiogram Report Name: JOSE GARCIA Age: 68 yrs Gender: Male : 1950 Patient Status: Inpatient Patient Location: ICU^611^A Study Date: 04/03/2019 01:27 PM Height: 72 in Weight: 241 lb BSA: 2.3 m2 Procedure: A two-dimensional transthoracic echocardiogram with color flow and Doppler was performed in limited views only. Follow Up Study. Study Quality: Fair. Reason For Study: CHF /Pulmonary HTN,EF and RVSP History: CHF /Pulmonary HTN,EF and RVSP. Ordering Physician: SIMRAN AVINA Performed By: Rohini Mike Interpretation Summary The left ventricle is normal in size. There is mild concentric left ventricular hypertrophy. LV EF is > than 60% The left ventricular wall motion is normal. There is no tricuspid stenosis. There is a trace amount of tricuspid regurgitation Tricuspid regurgitation jet envelope not well defined to measure RV systolic pressure accurately. MMode/2D Measurements & Calculations IVSd: 1.2 cm LVIDd: 5.4 cm FS: 27.3 % Ao root diam: 3.0 cm LVIDs: 3.9 cm EDV(Teich): 138.6 ml Ao root area: 7.2 cm2 LVPWd: 1.2 cm ESV(Teich): 65.5 ml LA dimension: 3.8 cm EF(Teich): 52.7 % Left Ventricle The left ventricle is normal in size. There is mild concentric left ventricular hypertrophy. LV EF is > than 60%. The left ventricular wall motion is normal. Tricuspid Valve There is no tricuspid stenosis. There is a trace amount of tricuspid regurgitation. Tricuspid regurgitation jet envelope not well defined to measure RV systolic pressure accurately. : SIMRAN AVINA Lakshmi
[2019-04-05] MEDS: HALOPERIDOL LACTATE INJ 5 MG/1 ML VIAL IV PRN (23:07)
[2019-04-06] MEDS: INSULIN LISPRO 100 UNIT/ML 3 ML VIAL SUBCUT SCH ×4 (00:55→17:09)
[2019-04-06 01:30] LABS: ANION GAP 5 (5-19); BLOOD UREA NITROGEN 67 mg/dL (7-20); CARBON DIOXIDE 33 mmol/L (22-30); CHLORIDE 95 mmol/L (98-107); GLUCOSE 269 mg/dL (75-110); PHOSPHORUS 4.7 mg/dL (2.5-4.5); POTASSIUM 4.5 mmol/L (3.6-5.0)
[2019-04-06 04:45] LABS: ABSOLUTE EOSINOPHILS # (AUTO) 0.1 10^3/uL (0.0-0.6); ABSOLUTE LYMPHOCYTES (AUTO) 0.6 10^3/uL (0.5-4.7); ABSOLUTE MONOCYTES (AUTO) 0.7 10^3/uL (0.1-1.4); ABSOLUTE NEUT (AUTO) 6.6 10^3/uL (1.7-8.2); BASOPHILS % (AUTO) 0.2 % (0-2); HEMATOCRIT 30.3 % (37.9-51.0); HEMOGLOBIN 10.4 g/dL (13.5-17.0); LYMPHOCYTES % (AUTO) 7.5 % (13-45); MEAN CORPUSCULAR HEMOGLOBIN 30.9 pg (27.0-33.4); MEAN CORPUSCULAR HGB CONC 34.3 g/dL (32.0-36.0); MEAN CORPUSCULAR VOLUME 90 fl (80-97); MONOCYTES % (AUTO) 8.9 % (3-13); PLATELET COUNT 145 10^3/uL (150-450); RED BLOOD COUNT 3.36 10^6/uL (4.35-5.55); RED CELL DISTRIBUTION WIDTH 13.9 % (11.5-14.0); SEGMENTED NEUTROPHILS % (AUTO) 82.4 % (42-78); TOTAL CELLS COUNTED % (AUTO) 100 %
[2019-04-06 05:07] LABS: BLOOD UREA NITROGEN 63 mg/dL (7-20); CALCIUM 7.9 mg/dL (8.4-10.2); CHLORIDE 93 mmol/L (98-107); GLUCOSE 272 mg/dL (75-110); PHOSPHORUS 4.7 mg/dL (2.5-4.5); POTASSIUM 4.5 mmol/L (3.6-5.0)
[2019-04-06 05:12] LABS: ANION GAP 5 (5-19); CARBON DIOXIDE 34 mmol/L (22-30)
[2019-04-06] MEDS: AMLODIPINE BESYLATE 10 MG TABLET PO SCH (09:36)
[2019-04-06] MEDS: METHYLPREDNISOLONE INJ 40 MG/1 ML SDV IV SCH ×2 (09:36→23:25)
[2019-04-06] MEDS: APIXABAN 2.5 MG TABLET PO SCH ×2 (09:37→17:12)
[2019-04-06] MEDS: GABAPENTIN 300 MG CAPSULE NG SCH ×2 (09:37→23:25)
[2019-04-06] MEDS: METOPROLOL TARTRATE 50 MG TABLET NG SCH ×2 (09:37→23:25)
[2019-04-06] MEDS: INSULIN GLARGINE,HUM.REC.ANLOG 1,000 UNIT/10 ML VIAL SUBCUT SCH (13:01)
--- NOTE | 2019-04-06 15:31 | XCELERA REPORT ---
[address] [address] Upper Extremity Arterial Evaluation Name: JOSE GARCIA Age: 68 yrs Gender: Male : 1950 Patient Status: Inpatient Patient Location: ICU^611^A Study Date: 04/04/2019 03:32 PM Procedure: A duplex scan of the upper extremity arteries was performed bilaterally. Reason For Study: Pulse and Bp discrepancy Ordering Physician: MENDEZ DE PAZ Performed By: Rohini Mike Measurements and Calculations Right Left Prox SCLA PSV -133.6 128.1 cm/sec Mid SCLA PSV 220.0 -57.0 cm/sec Ax A PSV -121.4 -70.7 cm/sec Prox Brach A PSV -131.8 -41.9 cm/sec Dist Brach A PSV -146.7 32.8 cm/sec Dist Rad A PSV -134.5 -46.1 cm/sec Dist Ulnar A PSV -124.0 -58.3 cm/sec Ax A PSV -121.4 -70.7 cm/sec Dist Brach A PSV -146.7 32.8 cm/sec Dist Rad A PSV -134.5 -46.1 cm/sec Dist Ulnar A PSV -124.0 -58.3 cm/sec Mid SCLA PSV 220.0 -57.0 cm/sec Prox Brach A PSV -131.8 -41.9 cm/sec Right Side Arterial Evaluation Normal velocity and triphasic waveforms noted from the Common Carotid artery to the Forearm vessels . Left Side Arterial Evaluation Normal velocity and triphasic waveforms noted from the Common Femoral artery to the Proximal Subclavian artery . Biphasic with low normal velocity, spectral broadening, blunted waveforms from the distal Subclavian to the Radial and Ulnar arteries. Interpretation Summary No hemodynamically significant lesions in the right upper extremity only, on duplex imaging, at rest. Moderate hemodynamically significant lesions in the left upper extremity only, on duplex imaging, at rest. Duplex study does not show a specific area of stenosis. Marked changes in imaging from the Subclavian downwards on the left indicates significant obstructive disease. : MENDEZ DE PAZ, [place] >
--- NOTE | 2019-04-06 19:16 | PDOC PROGRESS REPORT ---
Subjective Progress Note for:: 04/06/19 Subjective:: 04.06.19: Patient had urinary retention yesterday afternoon requiring placement of straight catheter for relief. Had some degree of owning delirium last evening but under better control. Slept with high flow nasal cannula because he was having sonorous respirations with sleep apnea. His breathing is much improved today and he does not feel short of breath. He was actually able to walk in the ICU with a walker. Now on nasal cannula and eating well. Vascular ultrasounds to evaluate pulse discrepancies in the upper extremities show obstructive disease. Not been complaining of any subjective pain. Completed his antibiotics. He has had no fever or hemodynamic instability. 04.05.19: Patient had Urinar retention yesterday resulting in need for one-time straight cath. This has not reoccurred. Last evening he became anxious and developed nighttime delirium and pulled out his left chest tube. Chest x-ray showed no pneumothorax and no fluid. He has no recollection. He does have unusual sleep patterns. Multiple attempts have been made to reset his day night patterns and steroids have been reduced. His noted an area the tip of his penis that she was concerned may be a "pimple". He denies any shortness of breath today no chest pain. He said minimal to scant output from his right chest tube. This was removed during rounds at bedside without difficulty. Has diuresed well and has developed a slight bicarbonate low and a slight increase in his creatinine. For this reason he has not been placed on his Glucophage. Diuresis has been held. Today is the last day of his antibiotics. 04.04.2019: Patient developed slight delirium late yesterday afternoon and continued into the evening. Despite constant instruction to stay in bed, he eventually got out of bed. No real change in cognition this morning and although has some memory deficits from last night, has none now. Bp discrepancy in arm cuff pressures. Breathing improved. Ramirez removed 2 days ago. Patient is unable to urinate today. 04.03.2019: Patient continues to improve and had minimal output from his chest tubes. Said nurses have noted a slight increase in the crackles which were diminished earlier. The chest tubes were clamped today and after 4 hours had some increased output but not dramatic. In concern for persistent output the clamps were left open to monitor. It has been quite active and wants to get out of bed. He is working actively with physical therapy. 04.02.2019: Patient continues to have sustained improvement in overall condition. He was successfully extubated 48 hours ago and has had no respiratory difficulty. He has been maintained on high flow with reduction in FiO2 and pressure requirements. He was able to tolerate physical therapy today. Notably he continues to have significant chest tube output with right greater than left. He has been hemodynamically stable and afebrile. He has no complaints specifically. Reason For Visit: ACUTE HYPOXIC RESPIRATORY FAILURE,ACUTE KIDNEY Physical Exam Vital Signs: Temp Pulse Resp BP Pulse Ox 98.2 F 81 23 H 147/64 H 92 04/06/19 16:00 04/06/19 16:00 04/06/19 18:42 04/06/19 18:42 04/06/19 18:42 Intake & Output 04/05/19 04/06/19 04/07/19 06:59 06:59 06:59 Intake Total 350 1240 240 Output Total 2710 2150 475 Balance -3300 -910 -235 Weight 106.3 kg 106.3 kg Physical Exam: 68-year-old white male ill but no acute distress General appearance: PRESENT: no acute distress, cooperative, disheveled, obese Head exam: PRESENT: atraumatic, normocephalic Eye exam: PRESENT: conjunctiva pink, EOMI, PERRLA. ABSENT: conjunctival injection, nystagmus, scleral icterus Mouth exam: PRESENT: moist Neck exam: ABSENT: carotid bruit, JVD, lymphadenopathy, tenderness, thyromegaly Respiratory exam: PRESENT: clear to auscultation zachariah. ABSENT: accessory muscle use Cardiovascular exam: PRESENT: RRR, +S1, +S2 Pulses: ABSENT: normal radial pulses Additional comments: Left radial pulse is 1/2 right radial pulse is 2/2 both dorsalis pedis pulses are 2/2 Vascular exam: PRESENT: normal capillary refill GI/Abdominal exam: PRESENT: normal bowel sounds, soft. ABSENT: ascites, distended, firm, guarding, mass, Deleon's sign, rebound, rigid, tenderness Extremities exam: PRESENT: pedal edema. ABSENT: joint swelling Musculoskeletal exam: PRESENT: ambulatory, normal inspection. ABSENT: tenderness Neurological exam: PRESENT: alert, awake, oriented to person, oriented to place, oriented to time, oriented to situation, abnormal gait - Weak, walks with walker, CN II-XII grossly intact. ABSENT: motor sensory deficit Psychiatric exam: PRESENT: appropriate affect. ABSENT: agitated, anxious Skin exam: PRESENT: normal color. ABSENT: cyanosis, erythema, jaundice, mottled, petechiae Results Laboratory Results: 04/06/19 04:34 04/06/19 04:34 04/06/19 04/06/19 04/06/19 00:59 04:34 04:34 WBC 8.0 RBC 3.36 L Hgb 10.4 L Hct 30.3 L MCV 90 MCH 30.9 MCHC 34.3 RDW 13.9 Plt Count 145 L Seg Neutrophils % 82.4 H Sodium 132.9 L 131.9 L Potassium 4.5 4.5 Chloride 95 L 93 L Carbon Dioxide 33 H 34 H Anion Gap 5 5 BUN 67 H 63 H Creatinine 1.45 H 1.47 H Est GFR ( Amer) 59 L 58 L Glucose 269 H 272 H Calcium 8.0 L 7.9 L Phosphorus 4.7 H 4.7 H Magnesium 1.8 1.8 03/20/19 03/20/19 03/20/19 02:40 02:40 07:06 Creatine Kinase 109 CK-MB (CK-2) 2.86 Cancelled Troponin I 0.040 Cancelled NT-Pro-B Natriuret Pep 4540 H 03/20/19 03/20/19 03/20/19 07:54 12:30 17:52 Creatine Kinase CK-MB (CK-2) 10.90 H Troponin I 0.648 1.770 3.420 NT-Pro-B Natriuret Pep 03/21/19 03/21/19 03/21/19 06:10 06:10 11:57 Creatine Kinase 353 H 258 H CK-MB (CK-2) 17.60 H Troponin I 5.350 NT-Pro-B Natriuret Pep 03/21/19 03/21/19 03/21/19 11:57 16:08 16:08 Creatine Kinase 232 H CK-MB (CK-2) 13.90 H 11.60 H Troponin I 4.320 4.530 NT-Pro-B Natriuret Pep 03/22/19 03/24/19 05:31 03:49 Creatine Kinase CK-MB (CK-2) Troponin I 3.240 3.270 NT-Pro-B Natriuret Pep Impressions: Vascular Ultrasound 03/21/19 07:41 IMPRESSION: NO DOPPLER EVIDENCE OF HEMODYNAMICALLY SIGNIFICANT RENAL ARTERY STENOSIS. Renal Ultrasound 03/22/19 00:00 IMPRESSION: No hydronephrosis Mild increased cortical echogenicity from medical renal disease Head CT 03/24/19 00:00 IMPRESSION: NO ACUTE INTRACRANIAL FINDINGS. EVIDENCE OF ACUTE STROKE: NO. KUB X-Ray 03/25/19 00:00 IMPRESSION: Nasogastric tube tip and side port in the stomach. Persistent left retrocardiac consolidation worrisome for pneumonia Chest CT 03/28/19 00:00 IMPRESSION: Persistent moderate to large bilateral pleural effusions with dense consolidation in the lung bases consistent with pneumonia. Thoracentesis Ultrasound 03/30/19 00:00 IMPRESSION: Successful small bore left-sided chest tube placement utilizing ultrasound guidance as detailed above. Chest X-Ray 04/05/19 06:00 IMPRESSION: Persistent right-sided pleural space pigtail catheter. No pleural effusion or pneumothorax right side. Left hemithorax unremarkable Assessment & Plan - Diagnosis (1) Acute respiratory failure Qualifiers: Respiratory failure complication: hypoxia and hypercapnia Qualified Code(s): J96.01 - Acute respiratory failure with hypoxia; J96.02 - Acute respiratory failure with hypercapnia Is this a current diagnosis for this admission?: Yes (2) Bilateral pleural effusion Is this a current diagnosis for this admission?: Yes (3) Acute hypoxemic respiratory failure Is this a current diagnosis for this admission?: Yes (4) Acute kidney injury Is this a current diagnosis for this admission?: Yes (5) Atrial fibrillation Qualifiers: Atrial fibrillation type: paroxysmal Qualified Code(s): I48.0 - Paroxysmal atrial fibrillation Is this a current diagnosis for this admission?: Yes (6) CKD (chronic kidney disease) stage 3, GFR 30-59 ml/min Is this a current diagnosis for this admission?: Yes (7) Type 2 diabetes mellitus Qualifiers: Diabetes mellitus terminal carman insulin use: without terminal carman use Diabetes mellitus complication status: without complication Qualified Code(s): E11.9 - Type 2 diabetes mellitus without complications Is this a current diagnosis for this admission?: Yes - Time Time Spent with patient: 25-34 minutes Total Critical Time (Minutes): 0 - [id number] Medications reviewed and adjusted accordingly: Yes Anticipated discharge: Acute Rehab Within: within 72 hours - Inpatient Certification Based on my medical assessment, after consideration of the patient's comorbidities, presenting symptoms, or acuity I expect that the services needed warrant INPATIENT care.: Yes I certify that my determination is in accordance with my understanding of Medicare's requirements for reasonable and necessary INPATIENT services [42 CFR 412.3e].: Yes Medical Necessity: Need Close Monitoring Due to Risk of Patient Decompensation Post Hospital Care: D/C Set Rider Documentation - Plan Summary Plan Summary: 04.06.19: Patient has been approved for placement in rehabilitation. However because of his need for high flow yesterday they are requesting consistent stabilization in the hospital. Has been on nasal cannula throughout the day and only uses high flow at night as a form of CPAP to prevent sleep apnea. Time delirium is seems to have improved. Occasional PVCs and bigeminy but is otherwise been stable. I have added beta-fan therapy to his armamentarium. Continue anticoagulation. He needs to monitor for recrudescence of pneumonia. 04.05.19: Patient has continued sustained improvement. He has now been transitioned from high flow nasal cannula to routine nasal cannula at 2 L. I personally remove the chest tube at bedside today. With careful vigilance for expiratory phase the tube was removed slightly pulled back and the curve stay suture was clipped the catheter was removed successfully without difficulty. Chest x-ray shows no effusion no pneumothorax. Patient was seen and evaluated by physiatry today in preparation for possible rehab placement. The consulting physician would like his oxygen status to be stable and plan is for potential acute rehab next Tuesday. At that point he had been on high flow so with the reduction in his oxygen these plans might change. From a respiratory standpoint his chest x-ray has improved dramatically. He has stopped his antibiotics and we are reducing his steroids. Careful vigilance for recrudescence of disease will need to be maintained. In studies where Pseudomonas has been an infection worse for the long there was no benefit in prolonged antibiotics beyond 7 days. In those studies any recrudescence of Pseudomonas infection was related to a different subtype. Vancomycin has also been discontinued. Patient's A. fib has been well controlled and is been maintained on his NOAC and has not required any rate control therapy. He has had hyperglycemia has been controlled with subcutaneous insulin. We have not started his metformin because of his acute kidney failure. Kidney function has improved with only a slight uptake secondary to diuresis in the past 24 hours. This is also been successful in removing the pleural effusions. He will need aggressive rehab and he is been undergoing physical therapy. He does develop nighttime delirium which may be related to steroids or his acute illness. His states that this does not happen at home however he has a ve ry altered sleep pattern of waking up confused every 3 hours while at home. He will need to be screened for sleep apnea. This point patient fits criteria for downgrade to [facility] and is been placed on downgrade status. A lot of items include: 1. Assure that there is no further urinary outlet obstruction 2. Watch for nighttime delirium. Haldol has been ordered to help control. 3. Watch for recrudescence of pleural effusions. Unlikely to occur 4. Potential early transition to rehabilitation center. 5. Follow creatinine and consider reintroduction of metformin 6. Follow glucose with insulin supplementation See above 10.19: Patient continues to show improvement overall. He has had decrease in his chest tube output and replace them both on clamp this afternoon. We will follow him clinically and symptomatically. Check chest x-ray in the morning. We will unclamp the chest tube in the morning to determine how much fluid has drained. We will continue diuresis and check a BMP mag and phosphorus to ensure electrolyte stability. We will continue physical therapy. I am concerned about transferring him to a lower level of care given his nighttime delirium with his chest tubes. He did pull out 2 of his IVs last night necessitating the use of Haldol and replacement of his IVs. Continue to treat him supportively continue his NOAC. He does appear to need acute rehab for rehabilitation. To new antibiotics for a total of 7 days and a stop date has been determined. Continue to follow his glucose and do not start his Glucophage until his creatinine has improved. 04.03.19 Patient continues to improve however appears to have some degree of volume overload. Will start IV Bumex. As far as the chest tubes are concerned I am impressed with the reduction in output. Hopefully with the Bumex this will continue and we can discontinue the chest tubes. I have started the reduction and steroids at this time and we will put a stop date on antibiotics as well as stop the vancomycin. In usual cases of Pseudomonas pneumonia mortality is excessively high. I complement the nursing and physician staff who have cared for this patient. Plans will be to follow chest tube output potential downgrade to intermediate care unit in the next 24 hours. Continue therapy for his atrial fibrillation. The care of a critically ill patient is dynamic. This note represents a static time-frame in the admission process. Orders and treatments may be given simultaneously and urgently, and time is not assisted sales representative of the treatment process. This patient requires Critical Care secondary to life-threatening organ or limb dysfunction. Without the need for Critical Care services, the patient is at risk for increased mortality and morbidity. MPOA:
--- NOTE | 2019-04-06 22:45 | Progress Note ---
Provider Note Provider Note: CARDIOLOGY PROGRESS NOTE by Dr. Simran Sanchez on 04/06/2019. SUBJECTIVE: The patient is extubated and is on nasal cannula at 2 L without any symptoms of shortness of breath. He has no chest pain or discomfort. There is no PND orthopnea. There is no leg edema. There is no recurrence of atrial flutter or fibrillation. There is no ventricular arrhythmia seen. There is no bleeding on Eliquis. There is no TIA CVA symptoms. PHYSICAL EXAMINATION: The patient is mildly obese. He is no acute distress.. He is well-groomed. Selected Entries 04/06/19 04/06/19 04/06/19 12:00 12:12 13:42 Temperature Oral Source Pulse Rate 76 Heart Rate ( 78 Monitors) Respiratory 22 H 17 Rate Blood Pressure 138/57 H Blood Pressure 84 Mean O2 Sat by Pulse 94 91 L Oximetry Oxygen Delivery Nasal Cannula Method ( includes room air) Oxygen Flow 2 Rate HEAD: Is atraumatic. Normocephalic. EYES: Pupils are equal round reactive to light. ENT is negative. NECK: Supple. There is no JVD. There is mild accessory muscle respiration use. Trachea central. LUNGS: There is diminished air entry and prolonged expiration. On percussion there is hyperresonance. There are few occasional scattered rhonchi. There is no rales or dullness or wheezing.. HEART: S1-S2 is heard. There is no S3 gallop. There is no S4 gallop there is systolic murmur in the left sternal border and the apex there is no rub. ABDOMEN: Is obese. There is no hepatospleno megaly. Bowel sounds well heard. EXTREMITIES: Femorals are diminished there is no femoral bruits. Leg pulses are diminished. There is trace pedal edema in the right lower extremity. There is no DVT or cellulitis. There is no calf tenderness. LEATHER SEASONER: The patient is conscious awake alert oriented x3 with no focal deficits. PSYCHIATRIC: Patient's judgment insight are intact her affect is normal. Labs- All tests 24 hr 04/06/19 04/06/19 04/06/19 00:59 04:15 04:34 WBC RBC Hgb Hct MCV MCH MCHC RDW Plt Count Lymph % (Auto) Antelope % (Auto) Eos % (Auto) Baso % (Auto) Absolute Neuts (auto) Absolute Lymphs (auto) Absolute Monos (auto) Absolute Eos (auto) Absolute Basos (auto) Seg Neutrophils % Sodium 132.9 L 131.9 L Potassium 4.5 4.5 Chloride 95 L 93 L Carbon Dioxide 33 H 34 H Anion Gap 5 5 BUN 67 H 63 H Creatinine 1.45 H 1.47 H Est GFR ( Amer) 59 L 58 L Est GFR (MDRD) Non-Af 49 L 48 L Glucose 269 H 272 H POC Glucose 284 H Calcium 8.0 L 7.9 L Phosphorus 4.7 H 4.7 H Magnesium 1.8 1.8 04/06/19 04/06/19 04/06/19 04:34 11:28 16:08 WBC 8.0 RBC 3.36 L Hgb 10.4 L Hct 30.3 L MCV 90 MCH 30.9 MCHC 34.3 RDW 13.9 Plt Count 145 L Lymph % (Auto) 7.5 L Antelope % (Auto) 8.9 Eos % (Auto) 1.0 Baso % (Auto) 0.2 Absolute Neuts (auto) 6.6 Absolute Lymphs (auto) 0.6 Absolute Monos (auto) 0.7 Absolute Eos (auto) 0.1 Absolute Basos (auto) 0.0 Seg Neutrophils % 82.4 H Sodium Potassium Chloride Carbon Dioxide Anion Gap BUN Creatinine Est GFR ( Amer) Est GFR (MDRD) Non-Af Glucose POC Glucose 253 H 298 H Calcium Phosphorus Magnesium Chest X-Ray 03/20/19 00:00 IMPRESSION: Worsening congestive failure with interstitial pulmonary edema. Chest X-Ray 03/20/19 00:00 IMPRESSION: Endotracheal tube is in place. Moderate pulmonary edema. Findings correlate from prior study. Chest X-Ray 03/20/19 02:37 IMPRESSION: Mild increased reticular interstitial changes may all be chronic in nature but cannot exclude minimal edema or atypical pneumonia. Correlation with an old exam or short-term follow-up will be useful. Vascular Ultrasound 03/21/19 07:41 IMPRESSION: NO DOPPLER EVIDENCE OF HEMODYNAMICALLY SIGNIFICANT RENAL ARTERY STENOSIS. Chest CT 03/21/19 13:00 IMPRESSION: 1. Findings most compatible CHF with moderate bilateral pleural effusions and bibasilar consolidation, likely atelectasis. Interlobular and septal thickening and patchy ground-glass attenuation, likely edema although superimposed infection is not entirely excluded. 2. Cardiomegaly. Coronary atherosclerosis. 3. Endotracheal tube within the midthoracic trachea. Chest X-Ray 03/22/19 00:00 IMPRESSION: Endotracheal tube, nasogastric tube in good positioning of the 2nd film. Unchanged bilateral pleural effusions with bibasilar airspace disease Renal Ultrasound 03/22/19 00:00 IMPRESSION: No hydronephrosis Mild increased cortical echogenicity from medical renal disease KUB X-Ray 03/23/19 15:17 IMPRESSION: THE TIP OF THE NASOGASTRIC TUBE IN THE STOMACH. NO RADIOGRAPHIC EVIDENCE FOR ACUTE ABDOMINAL DISEASE. Head CT 03/24/19 00:00 IMPRESSION: NO ACUTE INTRACRANIAL FINDINGS. EVIDENCE OF ACUTE STROKE: NO. Chest X-Ray 03/25/19 00:00 IMPRESSION: Moderate bilateral pleural effusions, left retrocardiac consolidation Endotracheal tube tip 5 cm above the ness KUB X-Ray 03/25/19 00:00 IMPRESSION: Nasogastric tube tip and side port in the stomach. Persistent left retrocardiac consolidation worrisome for pneumonia Chest X-Ray 03/26/19 00:00 IMPRESSION: Bilateral pleural effusions have increased. Airspace disease left lower lobe, consolidation versus atelectasis. Chest X-Ray 03/27/19 06:00 IMPRESSION: Unchanged radiographic appearance of the chest as detailed above. Chest CT 03/28/19 00:00 IMPRESSION: Persistent moderate to large bilateral pleural effusions with dense consolidation in the lung bases consistent with pneumonia. Chest X-Ray 03/28/19 00:00 IMPRESSION: Endotracheal tube is been advanced as described. It now lies 5.2 cm above the ness. No other significant change. Chest X-Ray 03/28/19 07:56 IMPRESSION: Endotracheal tube has been repositioned as described. No other interval change. Chest X-Ray 03/29/19 06:00 IMPRESSION: Interval improvement in lung volumes with persistent layering pleural effusions and associated atelectasis or consolidation. No new airspace opacity. Unchanged support apparatus including endotracheal tube. Cardiomegaly. Thoracentesis Ultrasound 03/29/19 10:00 IMPRESSION: SUCCESSFUL PLACEMENT OF A RIGHT SIDED CHEST 8 [place] PIGTAIL TUBE USING ULTRASOUND GUIDANCE. Chest X-Ray 03/29/19 14:29 IMPRESSION: No pneumothorax. Residual left pleural effusion. Thoracentesis Ultrasound 03/30/19 00:00 IMPRESSION: Successful small bore left-sided chest tube placement utilizing ultrasound guidance as detailed above. Chest X-Ray 04/02/19 06:00 IMPRESSION: Persistent pulmonary vascular congestion with mild perihilar airspace disease worrisome for pulmonary edema Chest X-Ray 04/03/19 06:00 IMPRESSION: Improved aeration of the bases, stable left retrocardiac opacity that could represent either atelectasis or (in the proper clinical setting) consolidation, and bibasilar pleural catheters without a sizable pleural effusion. Chest X-Ray 04/04/19 00:00 IMPRESSION: No significant change. Chest X-Ray 04/05/19 00:00 IMPRESSION: No pneumothorax status post catheter removal Chest X-Ray 04/05/19 06:00 IMPRESSION: Persistent right-sided pleural space pigtail catheter. No pleural effusion or pneumothorax right side. Left hemithorax unremarkable IMPRESSION/RECOMMENDATION: 1. Acute on probably chronic respiratory failure: This is resolved. The patient has been extubated. Initially his O2 sats was slightly low but they have come back up to normal. Continue antibiotics. 2. COPD: Continue bronchodilators and antibiotics. 3. Elevated troponin I: Non-ST elevation NC versus secondary to supply demand mismatch. Later when stable and the chest tubes are out then would recommend having an IV Lexiscan cardio light stress test done on the patient. This has been discussed with the patient. 4. Acute on chronic kidney disease. The patient's current baseline CKD stage III. Avoid nephrotoxic drugs. 5. Bilateral lower lobe pneumonia with consolidation and most likely para- pneumonic effusions: Continue antibiotics. The patient had a pigtail inserted into the right pleural cavity with drainage of fluid. There is almost no pleural fluid on the right side. There is still left pleural effusion and consolidation present. The sample sent from the left pleural fluid is a transudate. Both pigtails in the pleural cavity been removed, and clinically there is no reaccumulation of pleural fluid. 6.Paroxysmal atrial flutter. There is no recurrence. The patient's Eliquis has been restarted. 7. History of hypertension: At present patient blood pressure is very high. 8. Diabetes mellitus: Continue insulin as per blood sugar checks. 9. Possible interstitial lung disease.: The CT scan is reported as findings which did not support ILD. But will discuss with radiology. 10. Episodic heart failure secondary to hypertensive blood pressure spikes. Note that the patient's LV ejection fraction is normal. 11. Peripheral vascular disease as per history. Medications reviewed. Management plan discussed with attending physician on the case. Discussed with the patient and patient's the need for IV Lexiscan Cardiolite stress test as an outpatient. The patient is being transferred for in-hospital rehab. Patient otherwise will contact me after patient being discharged. Medical decision making is of moderate complexity. Cardiac status stable. Will sign off
[2019-04-07] MEDS: INSULIN LISPRO 100 UNIT/ML 3 ML VIAL SUBCUT SCH ×6 (00:53→22:59)
[2019-04-07] MEDS: IPRATROPIUM/ALBUTEROL 0.5-2.5 MG/3 ML AMPUL NEB PRN (08:57)
[2019-04-07] MEDS: INSULIN GLARGINE,HUM.REC.ANLOG 1,000 UNIT/10 ML VIAL SUBCUT SCH (10:15)
[2019-04-07] MEDS: GABAPENTIN 300 MG CAPSULE NG SCH ×2 (10:16→22:59)
[2019-04-07] MEDS: METOPROLOL TARTRATE 50 MG TABLET NG SCH ×2 (10:16→22:59)
[2019-04-07] MEDS: AMLODIPINE BESYLATE 10 MG TABLET PO SCH (10:16)
[2019-04-07] MEDS: METHYLPREDNISOLONE INJ 40 MG/1 ML SDV IV SCH (10:17)
[2019-04-07] MEDS: APIXABAN 2.5 MG TABLET PO SCH ×2 (10:19→17:40)
--- NOTE | 2019-04-07 14:41 | PDOC PROGRESS REPORT ---
Subjective Progress Note for:: 04/07/19 Subjective:: The patient is a 68-year-old male with a past medical history of hypertension, COPD, DM 2, obesity, 40-year pack history who was admitted 03/20/2019 for acute hypoxic respiratory failure subsequently requiring intubation x10 days; extubated on 03/31/2019 and successfully weaned to supplemental oxygen via nasal cannula at 4 L/min. Patient was seen on afternoon rounds. He is found resting in bed comfortably, lying supine, on supplemental oxygen at 4 L/min. He reports that he did not require high flow nasal cannula or CPAP overnight. He states that he is feeling well and looking forward to discharge to acute rehabilitation at [facility] on Tuesday. He states that he has been ambulatory with walker but fatigues very quickly. He denies fever, chills, chest pain, palpitations, dyspnea, cough, abdominal pain, nausea vomiting diarrhea. He does report constipation. He has no other questions or concerns today. No concerns per nursing. Reason For Visit: ACUTE HYPOXIC RESPIRATORY FAILURE,ACUTE KIDNEY Physical Exam Vital Signs: Temp Pulse Resp BP Pulse Ox 98.5 F 81 16 152/60 H 95 04/07/19 07:17 04/07/19 08:57 04/07/19 08:57 04/07/19 07:17 04/07/19 08:57 Intake & Output 04/06/19 04/07/19 04/08/19 06:59 06:59 06:59 Intake Total 1240 240 Output Total 2150 1575 Balance -910 -1335 Weight 103.7 kg General appearance: PRESENT: no acute distress, cooperative - Very pleasant, well-developed, well-nourished - Overweight Head exam: PRESENT: atraumatic, normocephalic Eye exam: PRESENT: conjunctiva pink, EOMI, PERRLA. ABSENT: scleral icterus Ear exam: PRESENT: normal external ear exam Mouth exam: PRESENT: moist, tongue midline Neck exam: ABSENT: carotid bruit, JVD, lymphadenopathy, thyromegaly Respiratory exam: PRESENT: clear to auscultation zachariah, prolonged expiratory phas, symmetrical, unlabored, other - Supplemental oxygen at 4 L/min. ABSENT: rales, rhonchi, wheezes Cardiovascular exam: PRESENT: RRR, +S1, +S2. ABSENT: diastolic murmur, rubs, systolic murmur Pulses: PRESENT: normal dorsalis pedis pul Vascular exam: PRESENT: normal capillary refill GI/Abdominal exam: PRESENT: normal bowel sounds, soft. ABSENT: distended, guarding, mass, organolmegaly, rebound, tenderness Rectal exam: PRESENT: deferred Extremities exam: PRESENT: full ROM. ABSENT: calf tenderness, clubbing, pedal edema Musculoskeletal exam: PRESENT: ambulatory - With assistance and walker Neurological exam: PRESENT: alert, awake, oriented to person, oriented to place, oriented to time, oriented to situation, CN II-XII grossly intact. ABSENT: motor sensory deficit Psychiatric exam: PRESENT: appropriate affect, normal mood. ABSENT: homicidal ideation, suicidal ideation Skin exam: PRESENT: dry, intact, warm. ABSENT: cyanosis, rash Results Laboratory Results: 04/06/19 04:34 04/06/19 04:34 03/20/19 03/20/19 03/20/19 02:40 02:40 07:06 Creatine Kinase 109 CK-MB (CK-2) 2.86 Cancelled Troponin I 0.040 Cancelled NT-Pro-B Natriuret Pep 4540 H 03/20/19 03/20/19 03/20/19 07:54 12:30 17:52 Creatine Kinase CK-MB (CK-2) 10.90 H Troponin I 0.648 1.770 3.420 NT-Pro-B Natriuret Pep 03/21/19 03/21/19 03/21/19 06:10 06:10 11:57 Creatine Kinase 353 H 258 H CK-MB (CK-2) 17.60 H Troponin I 5.350 NT-Pro-B Natriuret Pep 03/21/19 03/21/19 03/21/19 11:57 16:08 16:08 Creatine Kinase 232 H CK-MB (CK-2) 13.90 H 11.60 H Troponin I 4.320 4.530 NT-Pro-B Natriuret Pep 03/22/19 03/24/19 05:31 03:49 Creatine Kinase CK-MB (CK-2) Troponin I 3.240 3.270 NT-Pro-B Natriuret Pep Impressions: Vascular Ultrasound 03/21/19 07:41 IMPRESSION: NO DOPPLER EVIDENCE OF HEMODYNAMICALLY SIGNIFICANT RENAL ARTERY STENOSIS. Renal Ultrasound 03/22/19 00:00 IMPRESSION: No hydronephrosis Mild increased cortical echogenicity from medical renal disease Head CT 03/24/19 00:00 IMPRESSION: NO ACUTE INTRACRANIAL FINDINGS. EVIDENCE OF ACUTE STROKE: NO. KUB X-Ray 03/25/19 00:00 IMPRESSION: Nasogastric tube tip and side port in the stomach. Persistent left retrocardiac consolidation worrisome for pneumonia Chest CT 03/28/19 00:00 IMPRESSION: Persistent moderate to large bilateral pleural effusions with dense consolidation in the lung bases consistent with pneumonia. Thoracentesis Ultrasound 03/30/19 00:00 IMPRESSION: Successful small bore left-sided chest tube placement utilizing ultrasound guidance as detailed above. Chest X-Ray 04/05/19 06:00 IMPRESSION: Persistent right-sided pleural space pigtail catheter. No pleural effusion or pneumothorax right side. Left hemithorax unremarkable Assessment and Plan - Diagnosis (1) Acute hypoxemic respiratory failure Is this a current diagnosis for this admission?: Yes Plan: Significantly improved; now maintaining oxygen saturations on 4 L via nasal cannula. Extubated 03/31/2019 following 10 days on the vent. We will continue supplemental oxygen as needed to maintain saturations greater than 89%. Continue scheduled and as needed nebulizer treatments. Transition to p.o. prednisone 20 mg daily; will require slow taper off. Pulmonary toilet. (2) COPD with exacerbation Is this a current diagnosis for this admission?: Yes Plan: Resolved Continue supplemental oxygen as needed maintain saturations above 89%. Continue scheduled and as needed nebulizer treatments. Transition to p.o. prednisone today; prolonged taper related to prolonged critical illness/steroid use/intubation time. Pulmonary toilet. (3) Acute kidney injury Is this a current diagnosis for this admission?: Yes Plan: Acute on chronic kidney disease; creatinine of 2.16 at time of admission, peaked at 3.69, now 1.47. Ramirez catheter remains in place due to development of urinary retention. He does have excellent urinary output. Encourage p.o. fluids. Avoid nephrotoxic medications as able. Monitor with periodic chemistries. (4) Atrial fibrillation Qualifiers: Atrial fibrillation type: paroxysmal Qualified Code(s): I48.0 - Paroxysmal atrial fibrillation Is this a current diagnosis for this admission?: Yes Plan: Resolved; now in sinus rhythm. Continue metoprolol 50 mg twice daily. Renally dosed Eliquis. Continue to monitor on cardiac telemetry while admitted. Follow-up with cardiology as an outpatient following discharge from acute [facility] [place] rehabilitation. (5) Bilateral pleural effusion Is this a current diagnosis for this admission?: Yes Plan: Resolved. Patient developed bilateral pleural effusions requiring placement of chest tubes. Those were successfully removed on 04/04/2019. Follow-up chest x-ray on 04/05/2019 showed resolution of bilateral effusions. Patient now with clear lung sounds and maintaining oxygen saturations on 4 L via nasal cannula. (6) CKD (chronic kidney disease) stage 3, GFR 30-59 ml/min Is this a current diagnosis for this admission?: Yes Plan: We will avoid nephrotoxic medications as able. Encourage p.o. fluids. Monitor with periodic chemistries. (7) Pseudomonas pneumonia Qualifiers: Lung location: unspecified part of lung Is this a current diagnosis for this admission?: Yes Plan: Resolved. Completed a full course of antibiotic therapy. (8) Type 2 diabetes mellitus Qualifiers: Diabetes mellitus terminal press operator insulin use: without terminal press operator use Diabetes mellitus complication status: without complication Qualified Code(s): E11.9 - Type 2 diabetes mellitus without complications Is this a current diagnosis for this admission?: Yes Plan: Blood sugars 227-297 over the last 24 hours. Elevation partly related to continued steroid therapy. Have transitioned to p.o. prednisone today. Continue Lantus; increased to 16 units daily. Continue Accu-Cheks before meals and at bedtime with sliding scale insulin. (9) Elevated troponin Is this a current diagnosis for this admission?: Yes Plan: At 5.350 on 03/21/2019; trended down and no longer following. Cardiology was consulted; likely mismatch ischemia related to acute respiratory failure with hypoxia. Medication adjustments per cardiology service; plan for follow-up stress test as an outpatient. Cardiology has signed off. - Plan Summary Summary: -Based on the patient's diagnosis, medical co-morbidities, and current functional status, he is a good candidate for acute inpatient rehabilitation as he would benefit from 3 hours per day of intensive therapies in at least 2 disciplines under the close medical supervision of a physician. The patient is expected to make significant gains in a relatively short period of time to the point that he can safely be discharged home with supervision and assistance from family. The patient is not quite medically ready for discharge yet, so we will plan to admit the patient to acute inpatient rehabilitation at [facility] in [place] on 04/09/2019, barring any unforeseen events or complications. Nursing should call the [facility] acute inpatient rehabilitation nurses station at [phone] to provide report before the patient is discharged on Tuesday. - Time Time Spent with patient: 25-34 minutes Medications reviewed and adjusted accordingly: Yes Anticipated discharge: Acute Rehab Within: when bed available - 04/09/2019
[2019-04-07] MEDS: DOCUSATE SODIUM 100 MG CAPSULE PO SCH (17:40)
[2019-04-07] MEDS ORDERED: INSULIN LISPRO 100 UNIT/ML 3 ML VIAL SUBCUT ONE (23:30)
[2019-04-08 05:26] LABS: HEMATOCRIT 31.2 % (37.9-51.0); HEMOGLOBIN 10.5 g/dL (13.5-17.0); MEAN CORPUSCULAR HEMOGLOBIN 30.5 pg (27.0-33.4); MEAN CORPUSCULAR HGB CONC 33.7 g/dL (32.0-36.0); MEAN CORPUSCULAR VOLUME 91 fl (80-97); PLATELET COUNT 175 10^3/uL (150-450); RED BLOOD COUNT 3.45 10^6/uL (4.35-5.55); RED CELL DISTRIBUTION WIDTH 14.2 % (11.5-14.0); WHITE BLOOD COUNT 9.5 10^3/uL (4.0-10.5)
[2019-04-08 05:46] LABS: ANION GAP 6 (5-19); BLOOD UREA NITROGEN 47 mg/dL (7-20); CALCIUM 8.7 mg/dL (8.4-10.2); CARBON DIOXIDE 33 mmol/L (22-30); CHLORIDE 96 mmol/L (98-107); GLUCOSE 113 mg/dL (75-110); POTASSIUM 4.7 mmol/L (3.6-5.0)
[2019-04-08] MEDS: INSULIN LISPRO 100 UNIT/ML 3 ML VIAL SUBCUT SCH ×4 (08:09→22:11)
[2019-04-08] MEDS: DOCUSATE SODIUM 100 MG CAPSULE PO SCH ×2 (09:59→17:05)
[2019-04-08] MEDS: METOPROLOL TARTRATE 50 MG TABLET NG SCH ×2 (09:59→22:10)
[2019-04-08] MEDS: AMLODIPINE BESYLATE 10 MG TABLET PO SCH (09:59)
[2019-04-08] MEDS: GABAPENTIN 300 MG CAPSULE NG SCH ×2 (09:59→22:11)
[2019-04-08] MEDS: APIXABAN 2.5 MG TABLET PO SCH ×2 (10:00→17:05)
[2019-04-08] MEDS: PREDNISONE 20 MG TABLET PO SCH (10:00)
[2019-04-08] MEDS: POLYETHYLENE GLYCOL 3350 POWDER 17 GM/1 PACKET PO SCH (10:01)
[2019-04-08] MEDS: INSULIN GLARGINE,HUM.REC.ANLOG 1,000 UNIT/10 ML VIAL SUBCUT SCH (10:04)
--- NOTE | 2019-04-08 12:58 | PDOC PROGRESS REPORT ---
Subjective Progress Note for:: 04/08/19 Subjective:: The patient is a 68-year-old male with a past medical history of hypertension, COPD, DM 2, obesity, 40-year pack history who was admitted 03/20/2019 for acute hypoxic respiratory failure subsequently requiring intubation x10 days; extubated on 03/31/2019 and successfully weaned to supplemental oxygen via nasal cannula. Patient was seen on afternoon rounds. He is found sitting up to the edge of the bed, comfortably, on supplemental oxygen at 2 L/min. He does not use home O2. He did not require high flow nasal cannula or CPAP overnight; second night in a row that he has done well with supplemental oxygen via nasal cannula only. He reports that he was able to ambulate with front wheel walker to the end of the lassiter for a shower today. He states that he is feeling well and looking forward to discharge to acute rehabilitation at [facility] tomorrow. He denies fever, chills, chest pain, palpitations, dyspnea, cough, abdominal pain, nausea vomiting diarrhea. He does report constipation. He has no other questions or concerns today. No concerns per nursing. Reason For Visit: ACUTE HYPOXIC RESPIRATORY FAILURE,ACUTE KIDNEY Physical Exam Vital Signs: Temp Pulse Resp BP Pulse Ox 97.5 F 61 16 102/59 L 97 04/08/19 07:36 04/08/19 08:28 04/08/19 08:28 04/08/19 07:36 04/08/19 08:28 Intake & Output 04/07/19 04/08/19 04/09/19 06:59 06:59 06:59 Intake Total 240 440 Output Total 1575 2060 Balance -1335 -1620 Weight 103.7 kg 102.7 kg General appearance: PRESENT: no acute distress, cooperative, well-developed, well-nourished - Overweight Head exam: PRESENT: atraumatic, normocephalic Eye exam: PRESENT: conjunctiva pink, EOMI, PERRLA. ABSENT: scleral icterus Ear exam: PRESENT: normal external ear exam Mouth exam: PRESENT: moist, tongue midline Neck exam: ABSENT: carotid bruit, JVD, lymphadenopathy, thyromegaly Respiratory exam: PRESENT: clear to auscultation zachariah, prolonged expiratory phas, symmetrical, unlabored, other - Supplemental oxygen at 2 L/min. ABSENT: rales, rhonchi, wheezes Cardiovascular exam: PRESENT: RRR. ABSENT: diastolic murmur, rubs, systolic murmur Pulses: PRESENT: normal dorsalis pedis pul Vascular exam: PRESENT: normal capillary refill GI/Abdominal exam: PRESENT: normal bowel sounds, soft. ABSENT: distended, guarding, mass, organolmegaly, rebound, tenderness Rectal exam: PRESENT: deferred Extremities exam: PRESENT: full ROM. ABSENT: calf tenderness, clubbing, pedal edema Neurological exam: PRESENT: alert, awake, oriented to person, oriented to place, oriented to time, oriented to situation, CN II-XII grossly intact. ABSENT: motor sensory deficit Psychiatric exam: PRESENT: appropriate affect, normal mood. ABSENT: homicidal ideation, suicidal ideation Skin exam: PRESENT: dry, intact, warm. ABSENT: cyanosis, rash Results Laboratory Results: 04/08/19 05:00 04/08/19 05:00 04/08/19 04/08/19 05:00 05:00 WBC 9.5 RBC 3.45 L Hgb 10.5 L Hct 31.2 L MCV 91 MCH 30.5 MCHC 33.7 RDW 14.2 H Plt Count 175 Sodium 134.9 L Potassium 4.7 Chloride 96 L Carbon Dioxide 33 H Anion Gap 6 BUN 47 H Creatinine 1.30 H Est GFR ( Amer) > 60 Glucose 113 H Calcium 8.7 03/20/19 03/20/19 03/20/19 02:40 02:40 07:06 Creatine Kinase 109 CK-MB (CK-2) 2.86 Cancelled Troponin I 0.040 Cancelled NT-Pro-B Natriuret Pep 4540 H 03/20/19 03/20/19 03/20/19 07:54 12:30 17:52 Creatine Kinase CK-MB (CK-2) 10.90 H Troponin I 0.648 1.770 3.420 NT-Pro-B Natriuret Pep 03/21/19 03/21/19 03/21/19 06:10 06:10 11:57 Creatine Kinase 353 H 258 H CK-MB (CK-2) 17.60 H Troponin I 5.350 NT-Pro-B Natriuret Pep 03/21/19 03/21/19 03/21/19 11:57 16:08 16:08 Creatine Kinase 232 H CK-MB (CK-2) 13.90 H 11.60 H Troponin I 4.320 4.530 NT-Pro-B Natriuret Pep 03/22/19 03/24/19 05:31 03:49 Creatine Kinase CK-MB (CK-2) Troponin I 3.240 3.270 NT-Pro-B Natriuret Pep Impressions: Vascular Ultrasound 03/21/19 07:41 IMPRESSION: NO DOPPLER EVIDENCE OF HEMODYNAMICALLY SIGNIFICANT RENAL ARTERY STENOSIS. Renal Ultrasound 03/22/19 00:00 IMPRESSION: No hydronephrosis Mild increased cortical echogenicity from medical renal disease Head CT 03/24/19 00:00 IMPRESSION: NO ACUTE INTRACRANIAL FINDINGS. EVIDENCE OF ACUTE STROKE: NO. KUB X-Ray 03/25/19 00:00 IMPRESSION: Nasogastric tube tip and side port in the stomach. Persistent left retrocardiac consolidation worrisome for pneumonia Chest CT 03/28/19 00:00 IMPRESSION: Persistent moderate to large bilateral pleural effusions with dense consolidation in the lung bases consistent with pneumonia. Thoracentesis Ultrasound 03/30/19 00:00 IMPRESSION: Successful small bore left-sided chest tube placement utilizing ultrasound guidance as detailed above. Chest X-Ray 04/05/19 06:00 IMPRESSION: Persistent right-sided pleural space pigtail catheter. No pleural effusion or pneumothorax right side. Left hemithorax unremarkable Assessment and Plan - Diagnosis (1) Acute hypoxemic respiratory failure Is this a current diagnosis for this admission?: Yes Plan: Significantly improved; now maintaining oxygen saturations on 2 L via nasal cannula. Extubated 03/31/2019 following 10 days on the vent. Has not required a high flow nasal cannula x2 nights. Will discontinue. We will continue supplemental oxygen as needed to maintain saturations greater than 89%. Continue scheduled and as needed nebulizer treatments. Continue p.o. prednisone 20 mg daily; will require slow taper off. Pulmonary toilet. (2) COPD with exacerbation Is this a current diagnosis for this admission?: Yes Plan: Resolved Continue supplemental oxygen as needed maintain saturations above 89%. Continue scheduled and as needed nebulizer treatments. Transition to p.o. prednisone today; prolonged taper related to prolonged critical illness/steroid use/intubation time. Pulmonary toilet. (3) Acute kidney injury Is this a current diagnosis for this admission?: Yes Plan: Acute on chronic kidney disease; creatinine of 2.16 at time of admission, peaked at 3.69, now 1.30. BUN continues to trend down. Ramirez catheter has been removed; monitor for recurrent urinary retention. Encourage p.o. fluids. Avoid nephrotoxic medications as able. Monitor with periodic chemistries. (4) Atrial fibrillation Qualifiers: Atrial fibrillation type: paroxysmal Qualified Code(s): I48.0 - Paroxysmal atrial fibrillation Is this a current diagnosis for this admission?: Yes Plan: Resolved; now in sinus rhythm. Continue metoprolol 50 mg twice daily. Renally dosed Eliquis. Continue to monitor on cardiac telemetry while admitted. Follow-up with cardiology as an outpatient following discharge from acute inpatient rehabilitation. (5) Bilateral pleural effusion Is this a current diagnosis for this admission?: Yes Plan: Resolved. Patient developed bilateral pleural effusions requiring placement of chest tubes. Those were successfully removed on 04/04/2019. Follow-up chest x-ray on 04/05/2019 showed resolution of bilateral effusions. Patient now with clear lung sounds and maintaining oxygen saturations on 4 L via nasal cannula. (6) CKD (chronic kidney disease) stage 3, GFR 30-59 ml/min Is this a current diagnosis for this admission?: Yes Plan: We will avoid nephrotoxic medications as able. Encourage p.o. fluids. Monitor with periodic chemistries. (7) Pseudomonas pneumonia Qualifiers: Lung location: unspecified part of lung Is this a current diagnosis for this admission?: Yes Plan: Resolved. Completed a full course of antibiotic therapy. (8) Type 2 diabetes mellitus Qualifiers: Diabetes mellitus equipment operator intermodal yard insulin use: without halfway use Diabetes mellitus complication status: without complication Qualified Code(s): E11.9 - Type 2 diabetes mellitus without complications Is this a current diagnosis for this admission?: Yes Plan: Blood sugars are improved; 150-258 over the last 24 hours. Elevation partly related to continued steroid therapy. Have transitioned to p.o. prednisone. Continue Lantus; increased to 16 units daily yesterday. Continue Accu-Cheks before meals and at bedtime with sliding scale insulin. (9) Elevated troponin Is this a current diagnosis for this admission?: Yes Plan: At 5.350 on 03/21/2019; trended down and no longer following. Cardiology was consulted; likely mismatch ischemia related to acute respiratory failure with hypoxia. Medication adjustments per cardiology service; plan for follow-up stress test as an outpatient. Cardiology has signed off. (10) Urinary retention Is this a current diagnosis for this admission?: Yes Plan: Resolved. Ramirez catheter has been removed. Monitor for recurrence. - Plan Summary Summary: -Based on the patient's diagnosis, medical co-morbidities, and current functional status, he is a good candidate for acute inpatient rehabilitation as he would benefit from 3 hours per day of intensive therapies in at least 2 disciplines under the close medical supervision of a physician. The patient is expected to make significant gains in a relatively short period of time to the point that he can safely be discharged home with supervision and assistance from family. The patient is not quite medically ready for discharge yet, so we will plan to admit the patient to acute inpatient rehabilitation at [facility] in [place] on 04/09/2019, barring any unforeseen events or complications. Nursing should call the [facility] inpatient rehabilitation nurses station at [phone] to provide report before the patient is discharged on Tuesday. - Time Time Spent with patient: 15-24 minutes Medications reviewed and adjusted accordingly: Yes Anticipated discharge: Acute Rehab - [facility] acute rehab Within: when bed available
[2019-04-09] MEDS: DOCUSATE SODIUM 100 MG CAPSULE PO SCH (09:13)
[2019-04-09] MEDS: INSULIN LISPRO 100 UNIT/ML 3 ML VIAL SUBCUT SCH (09:13)
[2019-04-09] MEDS: METOPROLOL TARTRATE 50 MG TABLET NG SCH (09:14)
[2019-04-09] MEDS: GABAPENTIN 300 MG CAPSULE NG SCH (09:14)
[2019-04-09] MEDS: POLYETHYLENE GLYCOL 3350 POWDER 17 GM/1 PACKET PO SCH (09:14)
[2019-04-09] MEDS: PREDNISONE 20 MG TABLET PO SCH (09:15)
[2019-04-09] MEDS: AMLODIPINE BESYLATE 10 MG TABLET PO SCH (09:15)
[2019-04-09] MEDS: APIXABAN 2.5 MG TABLET PO SCH (09:16)
[2019-04-09] MEDS: INSULIN GLARGINE,HUM.REC.ANLOG 1,000 UNIT/10 ML VIAL SUBCUT SCH (09:18)
--- NOTE | 2019-04-09 09:53 | PDOC TRANSFER SUMMARY ---
General Admission Date/PCP: 03/20/19 08:23 REYNA PENN MD Admission Date: 03/20/19 Transfer Date: 04/09/19 Accepting Facility: [facility] Accepting Physician: Dr. Ang Garces Resuscitation Status: Full Code - Transfer Diagnosis (1) Acute hypoxemic respiratory failure Is this a current diagnosis for this admission?: Yes (2) COPD with exacerbation Is this a current diagnosis for this admission?: Yes (3) Acute kidney injury Is this a current diagnosis for this admission?: Yes (4) Atrial fibrillation Is this a current diagnosis for this admission?: Yes (5) Bilateral pleural effusion Is this a current diagnosis for this admission?: Yes (6) CKD (chronic kidney disease) stage 3, GFR 30-59 ml/min Is this a current diagnosis for this admission?: Yes (7) Pseudomonas pneumonia Is this a current diagnosis for this admission?: Yes (8) Type 2 diabetes mellitus Is this a current diagnosis for this admission?: Yes (9) Elevated troponin Is this a current diagnosis for this admission?: Yes (10) Urinary retention Is this a current diagnosis for this admission?: Yes - Transfer Medications Home Medications: Atorvastatin Calcium [Lipitor 40 mg Tablet] 40 mg PO QHS 03/20/19 Fenofibrate,Micronized [Fenofibrate] 134 mg PO DAILY 03/20/19 Gabapentin [Neurontin 300 mg Capsule] 300 mg PO Q12 03/20/19 Glipizide [Glucotrol 5 mg Tablet] 5 mg PO BID 03/20/19 Metformin HCl [Glucophage 500 mg Tablet] 1,000 mg PO BID 03/20/19 Umeclidinium Brm/Vilanterol Tr [Anoro Ellipta 62.5-25 Mcg INH] 1 puff IH DAILY 03/20/19 Transfer Medications: Current Medications Albuterol (Ventolin 0.042% Neb 1.25 Mg/3 Ml Ampul) 1.25 mg NEB RTQ4HP PRN PRN Reason: SHORTNESS OF BREATH Stop: 04/30/19 17:19 Albuterol/Ipratropium (Duoneb 3 Ml Ampul) 3 ml NEB RTQ4HP PRN PRN Reason: SHORTNESS OF BREATH Stop: 04/19/19 08:08 Last Admin: 04/07/19 08:57 Dose: 3 ml Documented by: Amlodipine Besylate (Norvasc 10 Mg Tablet) 10 mg PO DAILY [facility] Stop: 04/27/19 13:29 Last Admin: 04/08/19 09:59 Dose: 10 mg Documented by: Apixaban (Eliquis 2.5 Mg Tablet) 2.5 mg PO BID [facility] Stop: 04/30/19 09:59 Last Admin: 04/08/19 17:05 Dose: 2.5 mg Documented by: Dextrose (Dextrose Inj 50% Syringe (25 Gm/50 Ml)) 12.5 gm IV PRN PRN; Protocol PRN Reason: FOR BG 50-69 IN ALERT PATIENT Stop: 04/19/19 08:08 Last Admin: 03/31/19 18:55 Dose: 12.5 gm Documented by: Dextrose (Dextrose Inj 50% Syringe (25 Gm/50 Ml)) 25 gm IV PRN PRN; Protocol PRN Reason: PER PROTOCOL Stop: 04/19/19 08:08 Last Admin: 04/01/19 01:11 Dose: 25 gm Documented by: Docusate Sodium (Colace 100 Mg Capsule) 100 mg PO BID [facility] Stop: 05/07/19 17:59 Last Admin: 04/08/19 17:05 Dose: 100 mg Documented by: Gabapentin (Neurontin 300 Mg Capsule) 300 mg NG Q12 [facility] Stop: 04/20/19 09:59 Last Admin: 04/08/19 22:11 Dose: 300 mg Documented by: Glucagon (Glucagen Inj 1 Mg Vial) 1 mg IM PRN PRN; Protocol PRN Reason: Evaluate for BG < 70 Stop: 04/19/19 08:08 Glucose (Glutose 40% Gel 15 Gm Tube) 15 gm PO PRN PRN; Protocol PRN Reason: FOR BG 50-69 IN ALERT PATIENT Stop: 04/19/19 08:08 Glucose (Glutose 40% Gel 15 Gm Tube) 30 gm PO PRN PRN; Protocol PRN Reason: FOR BG < 50 IN ALERT PATIENT Stop: 04/19/19 08:08 Haloperidol Lactate (Haldol 5 Mg/Ml Inj 1 Ml Vial) 5 mg IV Q6HP PRN PRN Reason: RESTLESSNESS/AGITATION Stop: 05/04/19 20:16 Last Admin: 04/05/19 23:07 Dose: 5 mg Documented by: Insulin Glargine (Lantus Insulin 100 Unit/1 Ml 10 Ml) 15 unit SUBCUT DAILY [facility] Stop: 05/06/19 13:29 Last Admin: 04/08/19 10:04 Dose: 15 unit Documented by: Insulin Human Lispro (Humalog Insulin 100 Unit/1 Ml 3 Ml Vial) 0 - 12 unit SUBCUT ACHS [facility]; Protocol Stop: 05/08/19 07:59 Last Admin: 04/08/19 22:11 Dose: 4 unit Documented by: Metoprolol Tartrate (Lopressor 50 Mg Tablet) 50 mg NG Q12 [facility] Stop: 04/25/19 11:59 Last Admin: 04/08/19 22:10 Dose: 50 mg Documented by: Pharmacy Profile Note (Medication Communication Order) 1 each [facility] .NOTICE NR Stop: 04/19/19 21:14 Polyethylene Glycol (Miralax Powder 17 Gm/Packet) 17 gm PO DAILY [facility] Stop: 05/08/19 09:59 Last Admin: 04/08/19 10:01 Dose: 17 gm Documented by: Prednisone (Deltasone 20 Mg Tablet) 20 mg PO DAILY [facility] Stop: 04/11/19 09:59 Last Admin: 04/08/19 10:00 Dose: 20 mg Documented by: - Allergies Allergies/Adverse Reactions: No Known Allergies Allergy (Verified 02/15/18 08:16) - Diet/Activity Discharge Diet: Diabetic Hospital Course Hospital Course: H&P per Dr. Dye: JOSE GARCIA is a 68 year old male with a 40+-pack-year history of smoking who said he quit 8 weeks ago who presents with 1 week of progressive dyspnea. It should be noted that neither this patient nor his are very good historians. He says that over the past week he has noticed that he has dyspnea at rest and during exertion. He has not had a fever. He does not had a productive cough. He has not noticed any leg swelling. He has not noticed any weight gain but he has not been checking his weight. He does not have a history of CHF. His medical problems consist of flo-ujnvalt-qzusribgg diabetes mellitus, hypertension, hyperlipidemia, and his recent history of smoking. He was hypoxic on presentation and required supplemental O2, currently on BiPAP. He is stable on BiPAP. His BNP was elevated and so he was given a dose of Lasix, and now he is hypotensive and tachycardic. His chest x-ray looks like he has some chronic scarring. His creatinine is substantially elevated above baseline and his BUN to creatinine ratio greater than 20-1. He is being admitted for treatment of his respiratory failure and his dehydration and acute kidney injury. Course: The patient was admitted to [facility] for acute respiratory failure with hypoxia secondary to COPD exacerbation. He was supported with supplemental oxygen BiPAP, scheduled and as needed nebulizer treatments. Unfortunately, the patient's respiratory status quickly deteriorated and he required upgrade to ICU with that evening with Intubation on 03/20/2019. He remained on the ventilator for 10 days and was successfully extubated 03/31/2019. During that timeframe he received a full course of antibiotic therapy for Pseudomonas pneumonia. The patient developed bilateral pleural effusions requiring placement chest tubes; successfully removed on 04/04/2019 with follow-up chest x-ray demonstrating reso lution of bilateral effusions. The patient's respiratory status continues to improve; he has no longer requiring BiPAP/CPAP or HF NC support while asleep at night and his daytime oxygen requirement has been weaned to 2 L/min via nasal cannula. Nephrology was consulted to assist with management of his acute on chronic kidney disease. He did not require emergent dialysis: Nephrology services have signed off as the patient's function has returned to his baseline. Cardiology services were obtained for evaluation of elevated troponin; non-ST elevation SC versus supply demand mismatch. Echocardiogram confirmed normal LVEF. Cardiology recommends IV Lexiscan stress testing once discharged from acute rehab. Rehab physiology services were consulted; Dr. Nely Garces has met with the patient and graciously agreed to accept Mr. Garcia into his care for continued acute rehabilitation. On day of discharge, patient was found to be in stable condition, maintaining oxygen saturations on supplemental oxygen via NC He is transferred to [facility] for continued services. Physical Exam Vital Signs: Temp Pulse Resp BP Pulse Ox 97.7 F 69 16 109/63 97 04/09/19 03:09 04/09/19 03:09 04/09/19 03:09 04/09/19 03:09 04/09/19 03:09 Intake & Output 04/08/19 04/09/19 04/10/19 06:59 06:59 06:59 Intake Total 440 960 Output Total 2060 Balance -1620 960 Weight 102.7 kg 102.6 kg General appearance: PRESENT: no acute distress, cooperative, obese, well- developed, well-nourished Head exam: PRESENT: atraumatic, normocephalic Eye exam: PRESENT: conjunctiva pink, EOMI, PERRLA. ABSENT: scleral icterus Ear exam: PRESENT: normal external ear exam Mouth exam: PRESENT: moist, tongue midline Neck exam: ABSENT: carotid bruit, JVD, lymphadenopathy, thyromegaly Respiratory exam: PRESENT: clear to auscultation zachariah, symmetrical, unlabored. ABSENT: rales, rhonchi, wheezes Cardiovascular exam: PRESENT: RRR. ABSENT: diastolic murmur, rubs, systolic murmur Pulses: PRESENT: normal dorsalis pedis pul Vascular exam: PRESENT: normal capillary refill GI/Abdominal exam: PRESENT: normal bowel sounds, soft. ABSENT: distended, guarding, mass, organolmegaly, rebound, tenderness Rectal exam: PRESENT: deferred Extremities exam: PRESENT: full ROM. ABSENT: calf tenderness, clubbing, pedal edema Neurological exam: PRESENT: alert, awake, oriented to person, oriented to place, oriented to time, oriented to situation, CN II-XII grossly intact. ABSENT: motor sensory deficit Psychiatric exam: PRESENT: appropriate affect, normal mood. ABSENT: homicidal ideation, suicidal ideation Skin exam: PRESENT: dry, intact, warm. ABSENT: cyanosis, rash Results Laboratory Results: 04/08/19 05:00 04/08/19 05:00 03/20/19 03/20/19 03/20/19 02:40 02:40 07:06 Creatine Kinase 109 CK-MB (CK-2) 2.86 Cancelled Troponin I 0.040 Cancelled NT-Pro-B Natriuret Pep 4540 H 03/20/19 03/20/19 03/20/19 07:54 12:30 17:52 Creatine Kinase CK-MB (CK-2) 10.90 H Troponin I 0.648 1.770 3.420 NT-Pro-B Natriuret Pep 03/21/19 03/21/19 03/21/19 06:10 06:10 11:57 Creatine Kinase 353 H 258 H CK-MB (CK-2) 17.60 H Troponin I 5.350 NT-Pro-B Natriuret Pep 03/21/19 03/21/19 03/21/19 11:57 16:08 16:08 Creatine Kinase 232 H CK-MB (CK-2) 13.90 H 11.60 H Troponin I 4.320 4.530 NT-Pro-B Natriuret Pep 03/22/19 03/24/19 05:31 03:49 Creatine Kinase CK-MB (CK-2) Troponin I 3.240 3.270 NT-Pro-B Natriuret Pep Impressions: Vascular Ultrasound 03/21/19 07:41 IMPRESSION: NO DOPPLER EVIDENCE OF HEMODYNAMICALLY SIGNIFICANT RENAL ARTERY STENOSIS. Renal Ultrasound 03/22/19 00:00 IMPRESSION: No hydronephrosis Mild increased cortical echogenicity from medical renal disease Head CT 03/24/19 00:00 IMPRESSION: NO ACUTE INTRACRANIAL FINDINGS. EVIDENCE OF ACUTE STROKE: NO. KUB X-Ray 03/25/19 00:00 IMPRESSION: Nasogastric tube tip and side port in the stomach. Persistent left retrocardiac consolidation worrisome for pneumonia Chest CT 03/28/19 00:00 IMPRESSION: Persistent moderate to large bilateral pleural effusions with dense consolidation in the lung bases consistent with pneumonia. Thoracentesis Ultrasound 03/30/19 00:00 IMPRESSION: Successful small bore left-sided chest tube placement utilizing ultrasound guidance as detailed above. Chest X-Ray 04/05/19 06:00 IMPRESSION: Persistent right-sided pleural space pigtail catheter. No pleural effusion or pneumothorax right side. Left hemithorax unremarkable Plan Discharge Plan: Transfer to [facility] Acute Rehab into the care of Dr. Mere Garces. Follow up with Dr. Torres following discharge from acute rehab to arrange for cardiac stress test. Time Spent: Greater than 30 Minutes
[2019-04-09 10:00] VITALS: BP 113/61
[2019-04-09] MEDS: IPRATROPIUM/ALBUTEROL 0.5-2.5 MG/3 ML AMPUL NEB PRN (10:03)
== END 2019-04-09 11:53 | disposition short-term general hospital (02) | DRG 207 ==
LOC: ER 02:26 → EH 08:23 → 3W 12:16 → ICU 21:10 → 3S 04-06 21:15
PROVIDERS: ADMIT Internal Medicine Critical Care Medicine; ATTEND Internal Medicine
PROC: 5A1955Z Respiratory Ventilation, Greater than 96 Consecutive Hours (ICD-10-PCS; principal; 2019-03-20)
PROC: 0BH17EZ Insertion of Endotracheal Airway into Trachea, Via Natural or Artificial Opening (ICD-10-PCS; 2019-03-20)
PROC: 0W9930Z Drainage of Right Pleural Cavity with Drainage Device, Percutaneous Approach (ICD-10-PCS; 2019-03-29)
PROC: 0W9B30Z Drainage of Left Pleural Cavity with Drainage Device, Percutaneous Approach (ICD-10-PCS; 2019-03-30)
DX: J96.21 Acute and chronic respiratory failure with hypoxia (principal); I21.4 Non-ST elevation (NSTEMI) myocardial infarction; J15.1 Pneumonia due to Pseudomonas; N17.9 Acute kidney failure, unspecified; I16.1 Hypertensive emergency; J44.1 Chronic obstructive pulmonary disease with (acute) exacerbation; E44.1 Mild protein-calorie malnutrition; E87.2 Acidosis; I48.92 Unspecified atrial flutter; G72.81 Critical illness myopathy; E87.5 Hyperkalemia; E11.22 Type 2 diabetes mellitus with diabetic chronic kidney disease; I12.9 Hypertensive chronic kidney disease with stage 1 through stage 4 chronic kidney disease, or unspecified chronic kidney disease; N18.3 Chronic kidney disease, stage 3 (moderate); E86.0 Dehydration; I73.9 Peripheral vascular disease, unspecified; E78.5 Hyperlipidemia, unspecified; E11.40 Type 2 diabetes mellitus with diabetic neuropathy, unspecified; R33.9 Retention of urine, unspecified; Z87.891 Personal history of nicotine dependence
CPT/HCPCS: 32557; 36415; 70450; 71045; 71250; 74018; 76775; 78582; 80048; 80053; 80202; 81001; 82040; 82272; 82533; 82550; 82553; 82803; 82962; 83605; 83615; 83735; 83880; 83986; 84100; 84157; 84478; 84484; 85025; 85027; 85379; 85610; 85730; 87040; 87070; 87075; 87077; 87186; 87205; 87324; 87449; 88305; 89050; 93005; 93010; 93306; 93321; 93930; 93976; 94002; 94003; 94640; 94660; 94667; 94799; 96361; 96365; 96367; 96375; 99285; A9540; A9567; C1887; C1894; J0171; J0282; J0360; J0456; J0610; J0692; J0696; J1170; J1630; J1644; J1720; J1815; J1940; J1956; J2060; J2185; J2250; J2370; J2405; J2704; J2765; J2920; J2930; J3010; J3370; J3480; J3490; J7030; J7060; J7512; J7620; Q9969; S0028

== ENCOUNTER 2019-04-19 00:11 | Inpatient (IN) | payer MEDICARE ==
--- NOTE | 2019-04-19 00:46 | ER Document Report ---
ED Medical Screen (RME) - General Chief Complaint: Shortness Of Breath Stated Complaint: SHORTNESS OF BREATH Time Seen by Provider: 04/19/19 00:42 Primary Care Provider: REYNA PENN MD [Primary Care Provider] - Follow up as needed Mode of Arrival: Wheelchair Information source: Patient, Relative Notes: 68-year-old male presented to ED for difficulty breathing and unable to lay flat. He states that he was admitted to [facility] on March 25 for COPD with bilateral pneumonia had pleural effusions intubated x2 weeks had chest tubes on both sides. He states that he was then sent to [facility] a week ago Tuesday for rehab came home this past Tuesday. states that when he laid down tonight he could not get his breath and was very short of breath. O2 sat 92% respirations 25 blood pressure 173/73 afebrile at this time. I have greeted and performed a rapid initial assessment of this patient. A comprehensive ED assessment and evaluation of the patient, analysis of test results and completion of medical decision making process will be conducted by an additional ED providers. TRAVEL OUTSIDE OF THE [place] IN LAST 30 DAYS: No - Related Data Allergies/Adverse Reactions: No Known Allergies Allergy (Verified 04/19/19 00:42) Past Medical History - Social History Frequency of alcohol use: None Drug Abuse: None - Past Medical History Cardiac Medical History: Denies: Hx Coronary Artery Disease, Hx Heart Attack, Hx Hypertension Pulmonary Medical History: Reports: Hx COPD Denies: Hx Asthma, Hx Bronchitis, Hx Pneumonia Neurological Medical History: Denies: Hx Cerebrovascular Accident, Hx Seizures Endocrine Medical History: Reports: Hx Diabetes Mellitus Type 2 Musculoskeltal Medical History: Denies Hx Arthritis - Immunizations Hx Diphtheria, Pertussis, Tetanus Vaccination: Yes Physical Exam - Vital signs Vitals: Temp Pulse Resp BP Pulse Ox 98.4 F 74 25 H 173/73 H 92 04/19/19 00:38 04/19/19 00:38 04/19/19 00:38 04/19/19 00:38 04/19/19 00:38 Course - Vital Signs Vital signs: Temp Pulse Resp BP Pulse Ox 98.4 F 74 25 H 173/73 H 92 04/19/19 00:38 04/19/19 00:38 04/19/19 00:38 04/19/19 00:38 04/19/19 00:38 Doctor's Discharge - Discharge Referrals: REYNA PENN MD [Primary Care Provider] - Follow up as needed
[2019-04-19] MEDS ORDERED: NITROGLYCERIN 2% OINTMENT 1 GM PACKET TP ONE (01:26)
--- NOTE | 2019-04-19 01:28 | ER Document Report ---
ED Respiratory Problem - General Chief Complaint: Shortness Of Breath Stated Complaint: SHORTNESS OF BREATH Time Seen by Provider: 04/19/19 00:42 Mode of Arrival: Wheelchair Notes: Patient is a 68-year-old male that comes emergency department for chief complaint of difficulty breathing that started earlier tonight. He also states he noticed his legs are starting to swell. He does not have a history of congestive heart failure but he did have a hospitalization recently that included bilateral pneumonia, ultimately intubation and reportedly bilateral chest tubes for pleural effusions. He was transferred to [facility] for recovery and he does have a follow-up appointment with cardiology. He states he was told he had a mild heart attack and he is on Eliquis now. Past medical history includes COPD with smoking cessation 2 weeks ago, hypertension, hyperlipidemia, type 2 diabetes. TRAVEL OUTSIDE OF THE [place] IN LAST 30 DAYS: No - Related Data Allergies/Adverse Reactions: No Known Allergies Allergy (Verified 04/19/19 00:42) Past Medical History - General Information source: Patient, Relative - Social History Smoking Status: Former Smoker Frequency of alcohol use: None Drug Abuse: None Lives with: Family Family History: Reviewed & Not Pertinent Patient has suicidal ideation: No Patient has homicidal ideation: No - Past Medical History Cardiac Medical History: Denies: Hx Coronary Artery Disease, Hx Heart Attack, Hx Hypertension Pulmonary Medical History: Reports: Hx COPD Denies: Hx Asthma, Hx Bronchitis, Hx Pneumonia Neurological Medical History: Denies: Hx Cerebrovascular Accident, Hx Seizures Endocrine Medical History: Reports: Hx Diabetes Mellitus Type 2 Musculoskeletal Medical History: Denies Hx Arthritis - Immunizations Hx Diphtheria, Pertussis, Tetanus Vaccination: Yes Review of Systems - Review of Systems Constitutional: No symptoms reported EENT: No symptoms reported Cardiovascular: See HPI Respiratory: See HPI Gastrointestinal: No symptoms reported Genitourinary: No symptoms reported Male Genitourinary: No symptoms reported Musculoskeletal: No symptoms reported Skin: No symptoms reported Hematologic/Lymphatic: No symptoms reported Neurological/Psychological: No symptoms reported Physical Exam - Vital signs Vitals: Temp Pulse Resp BP Pulse Ox 98.4 F 74 25 H 173/73 H 92 04/19/19 00:38 04/19/19 00:38 04/19/19 00:38 04/19/19 00:38 04/19/19 00:38 - Notes Notes: GENERAL: Alert, interacts well. No acute distress. HEAD: Normocephalic, atraumatic. EYES: Pupils equal, round, and reactive to light. Extraocular movements intact. ENT: Oral mucosa moist, tongue midline. Oropharynx unremarkable. NECK: Full range of motion. Supple. Trachea midline. LUNGS: Bilateral rales noted especially in the lower suarez, mild tachypnea, no severe distress. No wheezing or rhonchi. No coughing. HEART: Regular rate and rhythm. No murmur ABDOMEN: Soft, non-tender. Non-distended. Bowel sounds present in all 4 quadrants. GENITOURINARY: Deferred EXTREMITIES: 2+ pitting edema in bilateral lower extremities extending up to the proximal tibia. Distal pulses and sensation intact. Range of motion of extremities intact. Otherwise unremarkable. BACK: no cervical, thoracic, lumbar midline tenderness. No saddle anesthesia, normal distal neurovascular exam. Moves all extremities in full range of motion. NEUROLOGICAL: Alert and oriented x3. Normal speech. Cranial nerves II through XII grossly intact. PSYCH: Normal affect, normal mood. SKIN: Warm, dry, normal turgor. No rashes or lesions noted. Course - Re-evaluation Re-evalutation: Patient with borderline tachypnea, borderline oxygen saturation when he first arrived, obvious rales on exam, bilateral lower extremity. He is hypertensive, appears to be fluid overload. He denies chest pain. No overt EKG changes. Chest x-ray shows probable vascular congestion based on his presentation. BNP is very elevated at greater than 14,000, troponin is also elevated at greater than 0.2, however his previous troponin was greater than 3. This will be recycled. Patient has not had any chest pain. Creatinine improved from prior. CBC nonspecific. Patient has been treated with nitroglycerin, diuresis. He is improved on reevaluation. Patient still has significant dyspnea on exertion and difficulty lying flat. Patient will require admission. I discussed with Dr. Aponte. He recommends repeat troponin and admission. Repeat troponin is slightly elevated as well but not significantly, patient unchanged from prior. I discussed with Dr. Harris, hospitalist, patient accepted to [facility] for admission. He requests patient be placed on BiPAP as well. Patient states appreciation and agreement. - Vital Signs Vital signs: Temp Pulse Resp BP Pulse Ox 98.4 F 74 21 H 163/70 H 99 04/19/19 00:38 04/19/19 00:38 04/19/19 05:32 04/19/19 04:30 04/19/19 05:32 - Laboratory Result Diagrams: 04/19/19 01:50 04/19/19 01:50 Laboratory results interpreted by me: 04/19/19 04/19/19 04/19/19 01:50 01:50 01:50 RBC 3.39 L Hgb 10.4 L Hct 31.4 L RDW 14.4 H BUN 31 H Creatinine 1.37 H Est GFR (MDRD) Non-Af 52 L Glucose 166 H NT-Pro-B Natriuret Pep 94372 H Total Protein 5.8 L Albumin 3.2 L - EKG Interpretation by Me Additional EKG results interpreted by me: EKG shows sinus rhythm at a rate of 71, QTC of 400, normal axis. Borderline T waves in the lateral leads but no significant depression or elevations of the T waves or ST segments noted. Discharge - Discharge Clinical Impression: Pulmonary vascular congestion, Dyspnea on exertion, Swelling of lower extremity CHF exacerbation Qualifiers: Heart failure type: unspecified Qualified Code(s): I50.9 - Heart failure, unspecified Condition: Stable Disposition: ADMITTED INPATIENT Admitting Provider: Steven (Hospitalist) Unit Admitted: [facility]
--- NOTE | 2019-04-19 01:32 | RADIOLOGY REPORT (SQ) ---
EXAM DESCRIPTION: XR CHEST 2 VIEWS COMPLETED DATE/TME: 04/19/2019 00:42 CLINICAL HISTORY: 68 years, Male, Difficulty breathing recent pneumonia chest tubes COMPARISON: X-ray chest 04/05/2019 NUMBER OF VIEWS: TECHNIQUE: LIMITATIONS: None. FINDINGS: There is patchy infiltrate at the left lung base, raising the possibility of pneumonia. There is bilateral interstitial pulmonary thickening. The heart is normal in size. Pulmonary vascularity appears normal. There are atherosclerotic changes and tortuosity of the thoracic aorta. IMPRESSION: Possible left basilar pneumonia. Bilateral interstitial pulmonary thickening. Diagnostic possibilities include interstitial pneumonia and interstitial edema. copyright 2010 [employer]- All Rights Reserved
[2019-04-19 02:06] LABS: ABSOLUTE BASOPHILS # (AUTO) 0.1 10^3/uL (0.0-0.2); ABSOLUTE EOSINOPHILS # (AUTO) 0.2 10^3/uL (0.0-0.6); ABSOLUTE LYMPHOCYTES (AUTO) 1.4 10^3/uL (0.5-4.7); ABSOLUTE MONOCYTES (AUTO) 0.6 10^3/uL (0.1-1.4); ABSOLUTE NEUT (AUTO) 3.5 10^3/uL (1.7-8.2); BASOPHILS % (AUTO) 0.9 % (0-2); EOSINOPHILS % (AUTO) 4.2 % (0-6); HEMATOCRIT 31.4 % (37.9-51.0); HEMOGLOBIN 10.4 g/dL (13.5-17.0); LYMPHOCYTES % (AUTO) 24.1 % (13-45); MEAN CORPUSCULAR HEMOGLOBIN 30.6 pg (27.0-33.4); MEAN CORPUSCULAR VOLUME 93 fl (80-97); MONOCYTES % (AUTO) 10.4 % (3-13); PLATELET COUNT 213 10^3/uL (150-450); RED BLOOD COUNT 3.39 10^6/uL (4.35-5.55); RED CELL DISTRIBUTION WIDTH 14.4 % (11.5-14.0); SEGMENTED NEUTROPHILS % (AUTO) 60.4 % (42-78); TOTAL CELLS COUNTED % (AUTO) 100 %; WHITE BLOOD COUNT 5.8 10^3/uL (4.0-10.5)
[2019-04-19 02:07] LABS: VENOUS BLOOD BASE EXCESS 2.3 mmol/L; VENOUS BLOOD PCO2 62.5 mmHg (35-63); VENOUS BLOOD PH 7.3 (7.30-7.42)
[2019-04-19 02:25] LABS: ALBUMIN 3.2 g/dL (3.5-5.0); ALKALINE PHOSPHATASE 69 U/L (38-126); ANION GAP 9 (5-19); ASPARTATE AMINO TRANSFERASE 22 U/L (17-59); BILIRUBIN,DIRECT 0.2 mg/dL (0.0-0.4); BILIRUBIN,TOTAL 0.3 mg/dL (0.2-1.3); BLOOD UREA NITROGEN 31 mg/dL (7-20); CALCIUM 8.8 mg/dL (8.4-10.2); CARBON DIOXIDE 27 mmol/L (22-30); CHLORIDE 107 mmol/L (98-107); CREATINE KINASE 65 U/L (55-170); GLUCOSE 166 mg/dL (75-110); TOTAL PROTEIN 5.8 g/dL (6.3-8.2)
[2019-04-19 02:37] LABS: CREATINE KINASE MB 4.2 ng/mL (<4.55)
[2019-04-19 02:40] LABS: TROPONIN I 0.247 ng/mL
[2019-04-19] MEDS ORDERED: FUROSEMIDE INJ/PF 40 MG/4 ML SDV IV ONE (02:41)
[2019-04-19] MEDS ORDERED: GLUCAGON,HUMAN RECOMB 1 MG INJ IM PRN (05:23)
[2019-04-19] MEDS ORDERED: MAGNESIUM HYDROXIDE SUSP 30 ML UDCUP PO PRN (05:23)
[2019-04-19] MEDS ORDERED: ACETAMINOPHEN 325 MG TABLET PO PRN (05:23)
[2019-04-19] MEDS ORDERED: MAG HYDROX/AL HYDROX/SIMETH SUSP 30 ML UDCUP PO PRN (05:23)
[2019-04-19] MEDS ORDERED: DEXTROSE 50%-WATER 25 GM/50 ML DISP.SYRIN IV PRN ×2 (05:23)
[2019-04-19] MEDS ORDERED: DEXTROSE 40% GEL 15 GM TUBE PO PRN ×2 (05:23)
[2019-04-19] MEDS ORDERED: IPRATROPIUM/ALBUTEROL 0.5-2.5 MG/3 ML AMPUL NEB PRN (05:27)
[2019-04-19] MEDS: HEPARIN SOD (PORCINE) 5,000 UNIT/ML 1 ML VIAL SUBCUT SCH ×3 (05:46→22:38)
[2019-04-19] MEDS ORDERED: LACTULOSE SYRUP 20 GM/30 ML UDCUP PO ONE (06:00)
--- NOTE | 2019-04-19 06:03 | PDOC H&P ---
History of Present Illness Admission Date/PCP: 04/19/19 05:17 REYNA PENN MD Patient complains of: Shortness of breath History of Present Illness: JOSE GARCIA is a 68 year old male with a past medical history of coronary artery disease, COPD, hypertension, diabetes and recent Pseudomonas pneumonia requiring intubation and bilateral chest tubes who was discharged from [facility] 10 days ago to acute rehab at [facility]. He was discharged from rehab 3 days ago but returns following development of peripheral edema and shortness of breath. In the emergency room is found to be in congestive heart failure with dyspnea, use of accessory muscles, pulmonary vascular congestion and rales. He receives IV Lasix, BiPAP and referred to the hospitalist for admission. Patient admits 3 days without discharge medication. He denies chest pain, nausea vomiting, diaphoresis, he is chest pain-free and otherwise feels improved from presentation. Past Medical History Cardiac Medical History: Denies: Coronary Artery Disease, Myocardial Infarction, Hypertension Pulmonary Medical History: Reports: Chronic Obstructive Pulmonary Disease (COPD) Denies: Asthma, Bronchitis, Pneumonia Neurological Medical History: Denies: Seizures Endocrine Medical History: Reports: Diabetes Mellitus Type 2 Musculoskeltal Medical History: Denies: Arthritis Hematology: Denies: Anemia Social History Information Source: Patient, [facility] Records Lives with: Spouse/Significant other Smoking Status: Former Smoker Frequency of Alcohol Use: None Hx Recreational Drug Use: No Drugs: None Hx Prescription Drug Abuse: No - Advance Directive Resuscitation Status: Full Code Family History Family History: COPD Parental Family History Reviewed: Yes Children Family History Reviewed: Yes Sibling(s) Family History Reviewed.: Yes Medication/Allergy Home Medications: Atorvastatin Calcium [Lipitor 40 mg Tablet] 40 mg PO QHS 03/20/19 Fenofibrate,Micronized [Fenofibrate] 134 mg PO DAILY 03/20/19 Gabapentin [Neurontin 300 mg Capsule] 300 mg PO Q12 03/20/19 Glipizide [Glucotrol 5 mg Tablet] 5 mg PO BID 03/20/19 Metformin HCl [Glucophage 500 mg Tablet] 1,000 mg PO BID 03/20/19 Umeclidinium Brm/Vilanterol Tr [Anoro Ellipta 62.5-25 Mcg INH] 1 puff IH DAILY 03/20/19 Amlodipine Besylate [Norvasc 10 mg Tablet] 10 mg PO DAILY #30 tablet 04/09/19 Apixaban [Eliquis 2.5 mg Tablet] 2.5 mg PO BID #60 tablet 04/09/19 Docusate Sodium [Colace 100 mg Capsule] 100 mg PO BID capsule 04/09/19 Metoprolol Tartrate [Lopressor 50 mg Tablet] 50 mg NG Q12 #60 tablet 04/09/19 Polyethylene Glycol 3350 [Miralax Powder 17 gm/Packet] 17 gm PO DAILY powd.pack 04/09/19 Prednisone [Deltasone 20 mg Tablet] 20 mg PO ASDIR PRN #5 tablet 04/09/19 Allergies/Adverse Reactions: No Known Allergies Allergy (Verified 04/19/19 00:42) Review of Systems Constitutional: PRESENT: as per HPI, fatigue, weakness, weight gain. ABSENT: fever(s) Eyes: ABSENT: visual disturbances Ears: ABSENT: hearing changes Cardiovascular: PRESENT: as per HPI. ABSENT: chest pain, dyspnea on exertion, edema, orthropnea, palpitations Respiratory: PRESENT: as per HPI Gastrointestinal: PRESENT: as per HPI Genitourinary: ABSENT: dysuria, hematuria Musculoskeletal: ABSENT: joint swelling Integumentary: ABSENT: rash, wounds Neurological: ABSENT: abnormal gait, abnormal speech, confusion, dizziness, focal weakness, syncope Psychiatric: ABSENT: anxiety, depression, homidical ideation, suicidal ideation Endocrine: ABSENT: cold intolerance, heat intolerance, polydipsia, polyuria Hematologic/Lymphatic: ABSENT: easy bleeding, easy bruising Physical Exam Vital Signs: Temp Pulse Resp BP Pulse Ox 98.4 F 74 19 163/70 H 95 04/19/19 00:38 04/19/19 00:38 04/19/19 04:30 04/19/19 04:30 04/19/19 04:30 Intake & Output 04/17/19 04/18/19 04/19/19 11:59 11:59 11:59 Weight 100.3 kg General appearance: PRESENT: cooperative, severe distress, well-developed, well- nourished. ABSENT: disheveled Head exam: PRESENT: atraumatic, normocephalic Eye exam: PRESENT: conjunctiva pink, EOMI, PERRLA. ABSENT: scleral icterus Ear exam: PRESENT: normal external ear exam Mouth exam: PRESENT: moist, tongue midline Neck exam: PRESENT: JVD. ABSENT: carotid bruit, lymphadenopathy, thyromegaly Respiratory exam: PRESENT: accessory muscle use, crackles, prolonged expiratory phas, rales, retraction, symmetrical, tachypnea. ABSENT: rhonchi Cardiovascular exam: PRESENT: RRR. ABSENT: diastolic murmur, rubs, systolic murmur Pulses: PRESENT: normal dorsalis pedis pul Vascular exam: PRESENT: normal capillary refill GI/Abdominal exam: PRESENT: normal bowel sounds, soft. ABSENT: distended, guarding, mass, organolmegaly, rebound, tenderness Rectal exam: PRESENT: deferred Extremities exam: PRESENT: full ROM, +2 edema. ABSENT: joint swelling, tenderness Neurological exam: PRESENT: alert, awake, oriented to person, oriented to place, oriented to time, oriented to situation, CN II-XII grossly intact. ABSENT: motor sensory deficit Psychiatric exam: PRESENT: appropriate affect, normal mood. ABSENT: homicidal ideation, suicidal ideation Skin exam: PRESENT: dry, intact, warm. ABSENT: cyanosis, rash Results Laboratory Results: 04/19/19 01:50 04/19/19 01:50 04/19/19 04/19/19 04/19/19 01:50 01:50 01:50 WBC 5.8 RBC 3.39 L Hgb 10.4 L Hct 31.4 L MCV 93 MCH 30.6 MCHC 33.0 RDW 14.4 H Plt Count 213 Seg Neutrophils % 60.4 VBG pH 7.30 VBG pCO2 62.5 VBG HCO3 30.0 VBG Base Excess 2.3 Sodium 142.9 Potassium 5.0 Chloride 107 Carbon Dioxide 27 Anion Gap 9 BUN 31 H Creatinine 1.37 H Est GFR ( Amer) > 60 Glucose 166 H Calcium 8.8 Total Bilirubin 0.3 AST 22 Alkaline Phosphatase 69 Total Protein 5.8 L Albumin 3.2 L 04/19/19 04/19/19 04/19/19 01:50 01:50 04:09 Creatine Kinase 65 CK-MB (CK-2) 4.20 Troponin I 0.247 0.289 NT-Pro-B Natriuret Pep 86131 H Impressions: Chest X-Ray 04/19/19 00:42 IMPRESSION: Possible left basilar pneumonia. Bilateral interstitial pulmonary thickening. Diagnostic possibilities include interstitial pneumonia and interstitial edema. copyright 2011 [employer]- All Rights Reserved Assessment and Plan - Diagnosis (1) CHF exacerbation Qualifiers: Heart failure type: unspecified Qualified Code(s): I50.9 - Heart failure, unspecified Is this a current diagnosis for this admission?: Yes Plan: CHF care set, fluid restriction, IV Lasix, BiPAP. Echocardiogram 1 month ago unremarkable. Clear medication noncompliance 3 days following acute rehab discharge. Possible occult obstructive sleep apnea (2) Anasarca Is this a current diagnosis for this admission?: Yes Plan: Secondary to #1, follow-up chemistry and medication reconciliation (3) Elevated troponin Is this a current diagnosis for this admission?: Yes Plan: Asymptomatic, possible subacute cardiac event, follow-up serial cardiac enzymes and cardiology consult (4) Type 2 diabetes mellitus Qualifiers: Diabetes mellitus care home insulin use: without care home use Diabetes mellitus complication status: without complication Qualified Code(s): E11.9 - Type 2 diabetes mellitus without complications Is this a current diagnosis for this admission?: Yes Plan: Humalog sliding scale (5) Anemia Is this a current diagnosis for this admission?: Yes Plan: Likely secondary to excessive and intensive recent phlebotomy, follow-up anemia labs - Time Time Spent with patient: 25-34 minutes - Inpatient Certification Medical Necessity: Need Close Monitoring Due to Risk of Patient Decompensation
[2019-04-19 06:09] LABS: ABSOLUTE RETICS # 0.051 10^6/uL (0.028-0.122); RETICULOCYTE COUNT (AUTO) 1.62 % (0.66-2.85)
[2019-04-19 06:32] LABS: IRON(TIBC) 35.2 ug/dL (49-181)
[2019-04-19 07:38] LABS: FOLATE 4.48 ng/mL (>2.76)
[2019-04-19] MEDS: IPRATROPIUM/ALBUTEROL 0.5-2.5 MG/3 ML AMPUL NEB SCH ×2 (07:46→15:59)
[2019-04-19] MEDS: INSULIN LISPRO 100 UNIT/ML 3 ML VIAL SUBCUT SCH ×3 (08:16→17:25)
[2019-04-19] MEDS ORDERED: INFLUENZA QUAD (6MOS+) 2019-20 VAC 0.5 ML SYR IM ONE (08:46)
[2019-04-19] MEDS: LACTULOSE SYRUP 20 GM/30 ML UDCUP PO SCH (09:39)
[2019-04-19] MEDS: ENALAPRIL MALEATE 10 MG TABLET PO SCH ×2 (09:39→22:37)
[2019-04-19] MEDS: FUROSEMIDE INJ/PF 40 MG/4 ML SDV IV SCH (09:39)
[2019-04-19] MEDS: ASPIRIN 81 MG TABLET, ENT COATED PO SCH (09:40)
[2019-04-19] MEDS: METOPROLOL TARTRATE 50 MG TABLET PO SCH ×2 (09:40→22:37)
[2019-04-19] MEDS ORDERED: NITROGLYCERIN 5 MG (0.2 MG/HR) PATCH.TD24 TD SCH (10:00)
--- NOTE | 2019-04-19 16:20 | PDOC PROGRESS REPORT ---
Subjective Progress Note for:: 04/19/19 Subjective:: The patient was seen on afternoon rounds with at bedside. He was found resting in bed comfortably on room air; initially sleeping but woke easily when I said his name. Upon entering the room, he was noted to be lying supine. He reports that he has had no further episodes of chest discomfort or dyspnea. He describes severe paroxysmal nocturnal dyspnea last night which is what prompted him to be evaluated in the emergency department. He denies fever, chills, malaise, palpitations, dyspnea at rest or with activity, wheezing, cough, abdominal pain, nausea vomiting diarrhea. He has no questions or concerns at this time; hopeful to be discharged tomorrow. No concerns per nursing. Reason For Visit: HEART FAILURE Physical Exam Vital Signs: Temp Pulse Resp BP Pulse Ox 98.4 F 66 20 145/60 H 99 04/19/19 00:38 04/19/19 15:59 04/19/19 15:59 04/19/19 06:01 04/19/19 15:59 Intake & Output 04/18/19 04/19/19 04/20/19 06:59 06:59 06:59 Weight 100.3 kg General appearance: PRESENT: no acute distress, cooperative, obese, well- developed, well-nourished Head exam: PRESENT: atraumatic, normocephalic Eye exam: PRESENT: conjunctiva pink, EOMI, PERRLA. ABSENT: scleral icterus Ear exam: PRESENT: normal external ear exam Mouth exam: PRESENT: moist, tongue midline Neck exam: ABSENT: carotid bruit, JVD, lymphadenopathy, thyromegaly Respiratory exam: PRESENT: clear to auscultation zachariah, symmetrical, unlabored. ABSENT: rales, rhonchi, wheezes Cardiovascular exam: PRESENT: RRR, +S1, +S2. ABSENT: diastolic murmur, rubs, systolic murmur Pulses: PRESENT: normal dorsalis pedis pul Vascular exam: PRESENT: normal capillary refill GI/Abdominal exam: PRESENT: normal bowel sounds, soft. ABSENT: distended, guarding, mass, organolmegaly, rebound, tenderness Rectal exam: PRESENT: deferred Extremities exam: PRESENT: full ROM. ABSENT: calf tenderness, clubbing, pedal edema Neurological exam: PRESENT: alert, awake, oriented to person, oriented to place, oriented to time, oriented to situation, CN II-XII grossly intact. ABSENT: motor sensory deficit Psychiatric exam: PRESENT: appropriate affect, normal mood. ABSENT: homicidal ideation, suicidal ideation Skin exam: PRESENT: dry, intact, warm. ABSENT: cyanosis, rash Results Laboratory Results: 04/19/19 01:50 04/19/19 01:50 04/19/19 04/19/19 04/19/19 01:50 01:50 01:50 WBC 5.8 RBC 3.39 L Hgb 10.4 L Hct 31.4 L MCV 93 MCH 30.6 MCHC 33.0 RDW 14.4 H Plt Count 213 Seg Neutrophils % 60.4 Retic Count (auto) VBG pH 7.30 VBG pCO2 62.5 VBG HCO3 30.0 VBG Base Excess 2.3 Sodium 142.9 Potassium 5.0 Chloride 107 Carbon Dioxide 27 Anion Gap 9 BUN 31 H Creatinine 1.37 H Est GFR ( Amer) > 60 Glucose 166 H Calcium 8.8 Magnesium Iron TIBC % Saturation Ferritin Total Bilirubin 0.3 AST 22 Alkaline Phosphatase 69 Total Protein 5.8 L Albumin 3.2 L Vitamin B12 Folate 04/19/19 04/19/19 04/19/19 05:47 05:47 05:47 WBC RBC Hgb Hct MCV MCH MCHC RDW Plt Count Seg Neutrophils % Retic Count (auto) 1.62 VBG pH VBG pCO2 VBG HCO3 VBG Base Excess Sodium Potassium Chloride Carbon Dioxide Anion Gap BUN Creatinine Est GFR ( Amer) Glucose Calcium Magnesium 1.6 Iron 35.2 L TIBC 158 L % Saturation 22 Ferritin 243.00 Total Bilirubin AST Alkaline Phosphatase Total Protein Albumin Vitamin B12 388.0 Folate 4.48 04/19/19 04/19/19 04/19/19 01:50 01:50 04:09 Creatine Kinase 65 CK-MB (CK-2) 4.20 Troponin I 0.247 0.289 NT-Pro-B Natriuret Pep 25633 H 04/19/19 04/19/19 05:47 11:31 Creatine Kinase CK-MB (CK-2) Troponin I 0.291 0.252 NT-Pro-B Natriuret Pep Impressions: Chest X-Ray 04/19/19 00:42 IMPRESSION: Possible left basilar pneumonia. Bilateral interstitial pulmonary thickening. Diagnostic possibilities include interstitial pneumonia and interstitial edema. copyright 2011 [employer]- All Rights Reserved Assessment and Plan - Diagnosis (1) CHF exacerbation Qualifiers: Heart failure type: unspecified Qualified Code(s): I50.9 - Heart failure, unspecified Is this a current diagnosis for this admission?: Yes Plan: Improved; patient reports generalized edema significantly improved, is now maintaining oxygen saturations while on room air, and lying comfortably supine. Clear lung sounds. Patient was noted to have an elevated proBNP and pulmonary vascular congestion on chest x-ray at time of admission. Echocardiogram (03/21/2019) Demonstrated LVEF 65% with normal left ventricular diastolic function. He was noted to have a mild amount of mitral regurgitation. Patient is admitted to [facility] on continuous cardiac telemetry. He is placed on a 1.2 L fluid restriction.. Continue IV furosemide for diuresis. Cardiac diet. Strict I&O's. Cardiology is consulted; possible mitral regurgitation ischemia. Has been started on Nitropaste. If patient tolerates well, will transition to long- acting nitroglycerin and be ready for discharge tomorrow with outpatient follow- up at Dr. Sanchez's office on Tuesday as previously scheduled. (2) Anasarca Is this a current diagnosis for this admission?: Yes Plan: Improved; secondary to #1 Patient reports gradual improvement of generalized edema; improved overnight and significantly better as compared to his previous admission. (3) Anemia Qualifiers: Anemia type: iron deficiency Is this a current diagnosis for this admission?: Yes Plan: Likely secondary to excessive and intensive recent phlebotomy Anemia panel does reveal mild iron deficiency. Hemoglobin is stable at 10.4 No evidence of active bleeding at this time. Asymptomatic with activity. Recommend multivitamin with iron supplementation. (4) Pulmonary vascular congestion Is this a current diagnosis for this admission?: Yes Plan: Secondary to #1. Noted on chest x-ray. Evaluation management as above. (5) Elevated troponin Is this a current diagnosis for this admission?: Yes Plan: Trending down. Cardiology is consulted; primary management per their expertise. Repeat troponin this evening and tomorrow morning. Repeat EKG in the morning. (6) Type 2 diabetes mellitus Qualifiers: Diabetes mellitus fci insulin use: without joint terminal attack controller use Diabetes mellitus complication status: without complication Qualified Code(s): E11.9 - Type 2 diabetes mellitus without complications Is this a current diagnosis for this admission?: Yes Plan: Holding metformin while admitted. The patient is placed on a cardiac/consistent carb diet. Accu-Cheks before meals and at bedtime with Humalog for sliding scale coverage. Hypoglycemia protocol in place. - Time Time Spent with patient: 35 or more minutes Medications reviewed and adjusted accordingly: Yes Anticipated discharge: Home Within: within 24 hours
[2019-04-19] MEDS ORDERED: NITROGLYCERIN 2% OINTMENT 1 GM PACKET TP SCH (18:00)
--- NOTE | 2019-04-19 20:20 | EKG REPORT ---
SEVERITY:- ABNORMAL ECG - SINUS RHYTHM ABNORMAL T, CONSIDER ISCHEMIA, LATERAL LEADS : Confirmed by: Simran Sanchez MD 19-Apr-2019 20:19:41
--- NOTE | 2019-04-19 22:31 | PDOC CONSULTATION ---
Consultation-Blank Consultation: CARDIOLOGY CONSULTATION by Dr. Simran Sanchez on 04/19/2019. Patient briefly seen at 9 AM, and subsequently in detail at 2 PM. CONSULT REQUESTING PHYSICIAN: Dr. Leonid Harris. [facility], [place] hospitalist physician group REASON FOR CONSULTATION: Heart failure. HISTORY PRESENT ILLNESS: Patient is a 68-year-old male with known history of COPD, peripheral vascular disease, diabetes mellitus and chronic kidney disease admitted with symptoms of what seems to be angina equivalent. The patient was admitted in February 2019 with respiratory failure and had bilateral pneumonias requiring chest tube placement. The patient improved with antibiotics. At that time he also had acute renal injury with a renal function improving. Of note the patient has chronic kidney disease stage III. He is also has a history of diabetes mellitus and also has a history of smoking for a long time which he quit a few months prior to the February admission. In the admission of the patient was intubated and and after some time showed improvement with antibiotics. He also developed atrial flutter which converted to sinus and hence the patient is on Eliquis. There is no TIA CVA symptoms. The patient subsequently was extubated and weaned off the oxygen to a low level and was transferred to [facility] as an inpatient rehab patient. The patient was discharged from the on Tuesday which is 04/16/2019. The patient was doing well and stated that his leg edema is also getting better. The patient had no orthopnea or PND until the yesterday evening the patient stated he initially took a nap and felt well and got up. Subsequently when he took a second nap and was trying to lie down in bed he had chest pressure and severe shortness of breath and the shortness of breath did improve with the patient sitting up. This sounds more like a PND equal and this occurred a few times. There is no palpitations or syncope. There is no symptoms suggestive recurrence of atrial flutter. Of note in the last admission he had had blood pressure spikes. But the patient states his blood pressure was within acceptable limits. Past Medical History Cardiac Medical History: Denies: Coronary Artery Disease, Myocardial Infarction, Hypertension Pulmonary Medical History: Reports: Chronic Obstructive Pulmonary Disease (COPD).? Interstitial lung disease Denies: Asthma, recently treated for bilateral pneumonia and respiratory failure. This required intubation. Neurological Medical History: Denies: Seizures Endocrine Medical History: Reports: Diabetes Mellitus Type 2 Musculoskeltal Medical History: Denies: Arthritis Hematology: Denies: Anemia VASCULAR: History of peripheral vascular disease. GENITOURINARY system: History of chronic kidney disease stage III. Social History Information Source: Patient, REPLACED BY [facility] Records Lives with: Spouse/Significant other Smoking Status: Former Smoker Frequency of Alcohol Use: None Hx Recreational Drug Use: No Drugs: None Hx Prescription Drug Abuse: No Advance Directive Resuscitation Status: Full Code. The patient's is his surrogate healthcare decision maker. Family History Family History: COPD Medication/Allergy Home Medications: Atorvastatin Calcium [Lipitor 40 mg Tablet] 40 mg PO QHS 03/20/19 Fenofibrate,Micronized [Fenofibrate] 134 mg PO DAILY 03/20/19 Gabapentin [Neurontin 300 mg Capsule] 300 mg PO Q12 03/20/19 Glipizide [Glucotrol 5 mg Tablet] 5 mg PO BID 03/20/19 Metformin HCl [Glucophage 500 mg Tablet] 1,000 mg PO BID 03/20/19 Umeclidinium Brm/Vilanterol Tr [Anoro Ellipta 62.5-25 Mcg INH] 1 puff IH DAILY 03/20/19 Amlodipine Besylate [Norvasc 10 mg Tablet] 10 mg PO DAILY #30 tablet 04/09/19 Apixaban [Eliquis 2.5 mg Tablet] 2.5 mg PO BID #60 tablet 04/09/19 Docusate Sodium [Colace 100 mg Capsule] 100 mg PO BID capsule 04/09/19 Metoprolol Tartrate [Lopressor 50 mg Tablet] 50 mg NG Q12 #60 tablet 04/09/19 Polyethylene Glycol 3350 [Miralax Powder 17 gm/Packet] 17 gm PO DAILY powd.pack 04/09/19 Prednisone [Deltasone 20 mg Tablet] 20 mg PO ASDIR PRN #5 tablet 04/09/19 Allergies/Adverse Reactions: No Known Allergies Review of Systems Constitutional: PRESENT: as per HPI, fatigue, weakness, weight gain. ABSENT: fever(s) Eyes: ABSENT: visual disturbances Ears: ABSENT: hearing changes Cardiovascular: PRESENT: as per HPI. ABSENT: chest pain, dyspnea on exertion, edema, orthropnea, palpitations Respiratory: PRESENT: as per HPI Gastrointestinal: PRESENT: as per HPI Genitourinary: ABSENT: dysuria, hematuria Musculoskeletal: ABSENT: joint swelling Integumentary: ABSENT: rash, wounds Neurological: ABSENT: abnormal gait, abnormal speech, confusion, dizziness, focal weakness, syncope Psychiatric: ABSENT: anxiety, depression, homidical ideation, suicidal ideation Endocrine: ABSENT: cold intolerance, heat intolerance, polydipsia, polyuria Hematologic/Lymphatic: ABSENT: easy bleeding, easy bruising' Current Medications Generic Name Dose Route Start Last Admin Trade Name Freq PRN Reason Stop Dose Admin Acetaminophen 650 mg 04/19/19 05:23 Tylenol 325 Mg Tablet PO 05/19/19 05:22 Q4HP PRN pain or temp greater than 101F Al Hydrox/Mg Hydrox/Simethicone 30 ml 04/19/19 05:23 Maalox Plus Susp 30 Udcup PO 05/19/19 05:22 Q4HP PRN HEARTBURN Albuterol/Ipratropium 3 ml 04/19/19 05:27 Duoneb 3 Ml Ampul NEB 05/19/19 05:26 [id number] PRN SHORTNESS OF BREATH Albuterol/Ipratropium 3 ml 04/19/19 08:00 04/19/19 15:59 Duoneb 3 Ml Ampul NEB 05/19/19 07:59 3 ml RTQ8 KYLER Administration Aspirin 81 mg 04/19/19 10:00 04/19/19 09:40 Ecotrin 81 Mg Ec Tablet PO 05/19/19 09:59 81 mg DAILY KYLER Administration Dextrose 12.5 gm 04/19/19 05:23 Dextrose Inj 50% Syringe (25 Gm/50 Ml) IV 05/19/19 05:22 PRN PRN FOR BG 50-69 IN ALERT PATIENT Protocol Dextrose 25 gm 04/19/19 05:23 Dextrose Inj 50% Syringe (25 Gm/50 Ml) IV 05/19/19 05:22 PRN PRN PER PROTOCOL Protocol Enalapril Maleate 10 mg 04/19/19 10:00 04/19/19 09:39 Vasotec 10 Mg Tablet PO 05/19/19 09:59 10 mg Q12 KYLER Administration Furosemide 40 mg 04/19/19 10:00 04/19/19 09:39 Lasix Inj/Pf 40 Mg/4 Ml Sdv IV 05/19/19 09:59 40 mg DAILY KYLER Administration Glucagon 1 mg 04/19/19 05:23 Glucagen Inj 1 Mg Vial IM 05/19/19 05:22 PRN PRN Evaluate for BG < 70 Protocol Glucose 15 gm 04/19/19 05:23 Glutose 40% Gel 15 Gm Tube PO 05/19/19 05:22 PRN PRN FOR BG 50-69 IN ALERT PATIENT Protocol Glucose 30 gm 04/19/19 05:23 Glutose 40% Gel 15 Gm Tube PO 05/19/19 05:22 PRN PRN FOR BG < 50 IN ALERT PATIENT Protocol Heparin Sodium (Porcine) 5,000 unit 04/19/19 06:00 04/19/19 13:59 Heparin Inj 5,000 Units/Ml 1 Ml Vial SUBCUT 05/19/19 05:59 5,000 unit Q8 KYLER Administration Insulin Human Lispro 0 - 12 unit 04/19/19 08:00 04/19/19 17:25 Humalog Insulin 100 Unit/1 Ml 3 Ml Vial SUBCUT 05/19/19 07:59 Not Given AC KYLER Protocol Lactulose 10 gm 04/19/19 10:00 04/19/19 09:39 Cephulac Syrup 20 Gm/30 Ml Udcup PO 05/19/19 09:59 10 gm DAILY KYLER Administration Magnesium Hydroxide 30 ml 04/19/19 05:23 Milk Of Magnesia 30 Ml Udcup PO 05/19/19 05:22 HSP PRN FOR CONSTIPATION Metoprolol Tartrate 50 mg 04/19/19 10:00 04/19/19 09:40 Lopressor 50 Mg Tablet PO 05/19/19 09:59 50 mg Q12 KYLER Administration Multivitamins/Iron 2 tab 04/20/19 10:00 Flintstones Chewable Multivit W/Fe Tab PO 05/20/19 09:59 DAILY KYLER Nitroglycerin 1 gm 04/19/19 18:00 04/19/19 18:09 Nitrol 2% Ointment 1gm Packet TP 05/19/19 17:59 1 gm Q6 KYLER Administration Sodium Chloride 2.5 ml 04/19/19 06:00 04/19/19 13:59 Saline Flush 2.5 Ml Monoject Prefil Syrin IV 05/19/19 05:59 2.5 ml Q8 KYLER Administration Discontinued Medications Generic Name Dose Route Start Last Admin Trade Name Freq PRN Reason Stop Dose Admin Furosemide 40 mg 04/19/19 02:41 04/19/19 03:24 Lasix Inj/Pf 40 Mg/4 Ml Sdv IV 04/19/19 02:42 40 mg NOW ONE Administration Influenza Virus Vaccine Quadrival 0.5 ml 04/19/19 08:46 Flulaval Quad 2019- Vac 0.5 Ml Syr IM 04/19/19 08:47 .ONCE ONE Lactulose 20 gm 04/19/19 06:00 04/19/19 05:50 Cephulac Syrup 20 Gm/30 Ml Udcup PO 04/19/19 06:01 Not Given NOW ONE Nitroglycerin 1 gm 04/19/19 01:26 04/19/19 01:32 Nitrol 2% Ointment 1gm Packet TP 04/19/19 01:27 1 gm NOW ONE Administration Nitroglycerin 1 each 04/19/19 10:00 04/19/19 09:40 Nitro-Dur 5 Mg (0.2 Mg/Hr) Transdermal Patch TD 05/19/19 09:59 1 each DAILY KYLER Administration PHYSICAL EXAMINATION: The patient is well-built and well-nourished in no acute distress. Selected Entries 04/19/19 16:08 Temperature 97.4 F Temperature Axillary Source Pulse Rate 66 Respiratory 16 Rate Blood Pressure 154/72 H Blood Pressure 99 Mean BP Location Right Arm BP Position Sitting O2 Sat by Pulse 100 Oximetry Oxygen Flow 2.00 Rate Oxygen Delivery Nasal Cannula Method HEAD: Is atraumatic. Normocephalic. EYES: Pupils are equal round reactive to light. ENT is negative. NECK: Supple. There is no JVD. There is no accessory muscle respiration use. Trachea central. LUNGS: There is diminished air entry and prolonged expiration. On percussion there is hyperresonance. There there are no rhonchi rales or wheezing.. HEART: S1-S2 is heard. S1 is of normal intensity. There is no S3 gallop. There is no S4 gallop there is systolic murmur in the left sternal border and the apex there is no rub. ABDOMEN: Is obese. There is no hepatospleno megaly. Bowel sounds well heard. EXTREMITIES: Femorals are diminished there is no femoral bruits. Leg pulses are diminished. There is trace pedal edema in the right lower extremity. There is no DVT or cellulitis. There is no calf tenderness. There is no cyanosis or clubbing.SEWAGE SCREEN OPERATOR: The patient is conscious awake alert oriented x3 with no focal deficit. PSYCHIATRIC: Patient judgment insight are intact his affect is normal. EKG: Shows sinus rhythm. Nonspecific T changes lateral leads. Labs- Entire Visit 04/19/19 04/19/19 04/19/19 01:50 01:50 01:50 WBC 5.8 RBC 3.39 L Hgb 10.4 L Hct 31.4 L MCV 93 MCH 30.6 MCHC 33.0 RDW 14.4 H Plt Count 213 Lymph % (Auto) 24.1 [place]he % (Auto) 10.4 Eos % (Auto) 4.2 Baso % (Auto) 0.9 Reticulocyte # Absolute Neuts (auto) 3.5 Absolute Lymphs (auto) 1.4 Absolute Monos (auto) 0.6 Absolute Eos (auto) 0.2 Absolute Basos (auto) 0.1 Seg Neutrophils % 60.4 Retic Count (auto) VBG pH VBG pCO2 VBG HCO3 VBG Base Excess Sodium 142.9 Potassium 5.0 Chloride 107 Carbon Dioxide 27 Anion Gap 9 BUN 31 H Creatinine 1.37 H Est GFR ( Amer) > 60 Est GFR (MDRD) Non-Af 52 L Glucose 166 H POC Glucose Calcium 8.8 Magnesium Iron TIBC % Saturation Ferritin Total Bilirubin 0.3 Direct Bilirubin 0.2 Neonat Total Bilirubin Not Reportable Neonat Direct Bilirubin Not Reportable Neonat Indirect Bili Not Reportable AST 22 ALT 36 Alkaline Phosphatase 69 Creatine Kinase 65 CK-MB (CK-2) 4.20 Troponin I 0.247 NT-Pro-B Natriuret Pep 04328 H Total Protein 5.8 L Albumin 3.2 L Vitamin B12 Folate 04/19/19 04/19/19 04/19/19 01:50 04:09 05:45 WBC RBC Hgb Hct MCV MCH MCHC RDW Plt Count Lymph % (Auto) [place]he % (Auto) Eos % (Auto) Baso % (Auto) Reticulocyte # Absolute Neuts (auto) Absolute Lymphs (auto) Absolute Monos (auto) Absolute Eos (auto) Absolute Basos (auto) Seg Neutrophils % Retic Count (auto) VBG pH 7.30 VBG pCO2 62.5 VBG HCO3 30.0 VBG Base Excess 2.3 Sodium Potassium Chloride Carbon Dioxide Anion Gap BUN Creatinine Est GFR ( Amer) Est GFR (MDRD) Non-Af Glucose POC Glucose 178 H Calcium Magnesium Iron TIBC % Saturation Ferritin Total Bilirubin Direct Bilirubin Neonat Total Bilirubin Neonat Direct Bilirubin Neonat Indirect Bili AST ALT Alkaline Phosphatase Creatine Kinase CK-MB (CK-2) Troponin I 0.289 NT-Pro-B Natriuret Pep Total Protein Albumin Vitamin B12 Folate 04/19/19 04/19/19 04/19/19 05:47 05:47 05:47 WBC RBC Hgb Hct MCV MCH MCHC RDW Plt Count Lymph % (Auto) [place]he % (Auto) Eos % (Auto) Baso % (Auto) Reticulocyte # 0.051 Absolute Neuts (auto) Absolute Lymphs (auto) Absolute Monos (auto) Absolute Eos (auto) Absolute Basos (auto) Seg Neutrophils % Retic Count (auto) 1.62 VBG pH VBG pCO2 VBG HCO3 VBG Base Excess Sodium Potassium Chloride Carbon Dioxide Anion Gap BUN Creatinine Est GFR ( Amer) Est GFR (MDRD) Non-Af Glucose POC Glucose Calcium Magnesium 1.6 Iron TIBC % Saturation Ferritin Total Bilirubin Direct Bilirubin Neonat Total Bilirubin Neonat Direct Bilirubin Neonat Indirect Bili AST ALT Alkaline Phosphatase Creatine Kinase CK-MB (CK-2) Troponin I 0.291 NT-Pro-B Natriuret Pep Total Protein Albumin Vitamin B12 Folate 04/19/19 04/19/19 04/19/19 05:47 08:01 11:31 WBC RBC Hgb Hct MCV MCH MCHC RDW Plt Count Lymph % (Auto) Ashe % (Auto) Eos % (Auto) Baso % (Auto) Reticulocyte # Absolute Neuts (auto) Absolute Lymphs (auto) Absolute Monos (auto) Absolute Eos (auto) Absolute Basos (auto) Seg Neutrophils % Retic Count (auto) VBG pH VBG pCO2 VBG HCO3 VBG Base Excess Sodium Potassium Chloride Carbon Dioxide Anion Gap BUN Creatinine Est GFR ( Amer) Est GFR (MDRD) Non-Af Glucose POC Glucose 184 H Calcium Magnesium Iron 35.2 L TIBC 158 L % Saturation 22 Ferritin 243.00 Total Bilirubin Direct Bilirubin Neonat Total Bilirubin Neonat Direct Bilirubin Neonat Indirect Bili AST ALT Alkaline Phosphatase Creatine Kinase CK-MB (CK-2) Troponin I 0.252 NT-Pro-B Natriuret Pep Total Protein Albumin Vitamin B12 388.0 Folate 4.48 04/19/19 04/19/19 04/19/19 12:18 16:07 17:31 WBC RBC Hgb Hct MCV MCH MCHC RDW Plt Count Lymph % (Auto) [place]he % (Auto) Eos % (Auto) Baso % (Auto) Reticulocyte # Absolute Neuts (auto) Absolute Lymphs (auto) Absolute Monos (auto) Absolute Eos (auto) Absolute Basos (auto) Seg Neutrophils % Retic Count (auto) VBG pH VBG pCO2 VBG HCO3 VBG Base Excess Sodium Potassium Chloride Carbon Dioxide Anion Gap BUN Creatinine Est GFR ( Amer) Est GFR (MDRD) Non-Af Glucose POC Glucose 204 H 127 H Calcium Magnesium Iron TIBC % Saturation Ferritin Total Bilirubin Direct Bilirubin Neonat Total Bilirubin Neonat Direct Bilirubin Neonat Indirect Bili AST ALT Alkaline Phosphatase Creatine Kinase CK-MB (CK-2) Troponin I 0.195 NT-Pro-B Natriuret Pep Total Protein Albumin Vitamin B12 Folate Chest X-Ray 04/19/19 00:42 IMPRESSION: Possible left basilar pneumonia. Bilateral interstitial pulmonary thickening. Diagnostic possibilities include interstitial pneumonia and interstitial edema. IMPRESSION/RECOMMENDATION: 1. Chest pressure with PND symptoms. Most likely this is angina and equal and PND. Hence we will start the patient on topical nitrates. If patient tolerates this then we will start the patient on isosorbide mononitrate 60 mg p.o. daily. Later as an outpatient we will schedule the patient for IV Lexiscan Cardiolite stress test. 2. Elevated troponin I: This is most likely due to the downtrending of the troponin I seen in the last admission. No evidence of non-ST elevation TX this admission. 3. Chronic obstructive pulmonary disease: At present stable and at baseline with no acute exacerbation 4. Paroxysmal atrial flutter: Patient sinus rhythm. Continue his current beta- blockers and Eliquis 5. Diabetes mellitus: Continue antidiabetic regimen and asked to check serially. 6. Chronic kidney disease stage III: Note the GFR is come up to 52 compared to earlier which was in the 40s. 7. Peripheral vascular disease: Asymptomatic. 8. Interstitial lung disease needs to be excluded: We will get a high- resolution CT of the chest without contrast tomorrow Medications reviewed. Medications adjusted. Medical regimen and management plan discussed with attending physician on the case. Medical decision making is of high complexity. 60 minutes spent on the patient more than 50% of time spent on direct patient care. Will follow discussed with the patient patient's .
[2019-04-20] MEDS: IPRATROPIUM/ALBUTEROL 0.5-2.5 MG/3 ML AMPUL NEB SCH ×2 (00:16→07:52)
[2019-04-20 05:39] LABS: ABSOLUTE EOSINOPHILS # (AUTO) 0.3 10^3/uL (0.0-0.6); ABSOLUTE LYMPHOCYTES (AUTO) 1.3 10^3/uL (0.5-4.7); ABSOLUTE MONOCYTES (AUTO) 0.5 10^3/uL (0.1-1.4); ABSOLUTE NEUT (AUTO) 2.3 10^3/uL (1.7-8.2); BASOPHILS % (AUTO) 1.1 % (0-2); EOSINOPHILS % (AUTO) 7.2 % (0-6); HEMATOCRIT 26.9 % (37.9-51.0); HEMOGLOBIN 9.1 g/dL (13.5-17.0); LYMPHOCYTES % (AUTO) 29.8 % (13-45); MEAN CORPUSCULAR HEMOGLOBIN 30.6 pg (27.0-33.4); MEAN CORPUSCULAR HGB CONC 33.6 g/dL (32.0-36.0); MEAN CORPUSCULAR VOLUME 91 fl (80-97); MONOCYTES % (AUTO) 11.2 % (3-13); PLATELET COUNT 173 10^3/uL (150-450); RED BLOOD COUNT 2.95 10^6/uL (4.35-5.55); RED CELL DISTRIBUTION WIDTH 14.6 % (11.5-14.0); SEGMENTED NEUTROPHILS % (AUTO) 50.7 % (42-78); TOTAL CELLS COUNTED % (AUTO) 100 %; WHITE BLOOD COUNT 4.5 10^3/uL (4.0-10.5)
[2019-04-20 06:06] LABS: BLOOD UREA NITROGEN 31 mg/dL (7-20); CALCIUM 8.2 mg/dL (8.4-10.2); CARBON DIOXIDE 28 mmol/L (22-30); GLUCOSE 175 mg/dL (75-110); POTASSIUM 3.9 mmol/L (3.6-5.0)
[2019-04-20 06:11] LABS: ANION GAP 6 (5-19); CHLORIDE 102 mmol/L (98-107)
[2019-04-20] MEDS: HEPARIN SOD (PORCINE) 5,000 UNIT/ML 1 ML VIAL SUBCUT SCH (07:45)
[2019-04-20] MEDS: INSULIN LISPRO 100 UNIT/ML 3 ML VIAL SUBCUT SCH ×2 (08:30→12:06)
[2019-04-20] MEDS: LACTULOSE SYRUP 20 GM/30 ML UDCUP PO SCH (09:47)
[2019-04-20] MEDS: FUROSEMIDE INJ/PF 40 MG/4 ML SDV IV SCH (09:47)
[2019-04-20] MEDS: METOPROLOL TARTRATE 50 MG TABLET PO SCH (09:48)
[2019-04-20] MEDS: ENALAPRIL MALEATE 10 MG TABLET PO SCH (09:48)
[2019-04-20] MEDS: ASPIRIN 81 MG TABLET, ENT COATED PO SCH (09:48)
[2019-04-20] MEDS ORDERED: MULTIVITAMINS W-IRON TABLET, CHEWABLE PO SCH (10:00)
[2019-04-20] MEDS ORDERED: ISOSORBIDE MONONITRATE 60 MG TAB.ER.24H PO SCH (10:00)
--- NOTE | 2019-04-20 10:33 | PDOC DISCHARGE SUMMARY ---
Impression - Admit/DC Date/PCP Admission Date/Primary Care Provider: 04/19/19 05:17 REYNA PENN MD Discharge Date: 04/20/19 - Discharge Diagnosis (1) Acute exacerbation of congestive heart failure Is this a current diagnosis for this admission?: Yes (2) Anasarca Is this a current diagnosis for this admission?: Yes (3) Elevated troponin Is this a current diagnosis for this admission?: Yes (4) Diabetes mellitus type 2 in nonobese Is this a current diagnosis for this admission?: Yes (5) Anemia Is this a current diagnosis for this admission?: Yes - Additional Information Resuscitation Status: Full Code Discharge Diet: Cardiac, Diabetic Discharge Activity: Activity As Tolerated, Balance Activity w/Rest, Weigh Daily Referrals: REYNA PENN MD [Primary Care Provider] - 04/23/19 8:30 am JERRELL AVINA MD [ACTIVE STAFF] - 04/23/19 11:00 am Prescriptions: Isosorbide Mononitrate [Imdur 30 mg Tablet.er] 30 mg PO DAILY #30 tab.er.24h Nitroglycerin [Nitrostat 0.4 mg (1/150 Gr) Tabs 25/Bottle] 1 tab SL Q5MP PRN #25 tab.subl PRN Reason: Home Medications: Amlodipine Besylate [Norvasc 10 mg Tablet] 10 mg PO DAILY 04/19/19 Apixaban [Eliquis 2.5 mg Tablet] 2.5 mg PO Q12 04/19/19 Atorvastatin Calcium [Lipitor 40 mg Tablet] 40 mg PO QHS 04/19/19 Gabapentin [Neurontin 300 mg Capsule] 300 mg PO Q12 04/19/19 Insulin Glargine,Hum.rec.anlog [Lantus Insulin 100 Unit/1 ml 10 ml] 15 unit SUBCUT DAILY 04/19/19 Metformin HCl 1,000 mg PO BID 04/19/19 Metoprolol Tartrate [Lopressor 50 mg Tablet] 50 mg PO Q12 04/19/19 Prednisone [Walt] 5 mg PO DAILY 04/19/19 Isosorbide Mononitrate [Imdur 30 mg Tablet.er] 30 mg PO DAILY #30 tab.er.24h 04/20/19 Nitroglycerin [Nitrostat 0.4 mg (1/150 Gr) Tabs 25/Bottle] 1 tab SL Q5MP PRN #25 tab.subl 04/20/19 History of Present Illiness History of Present Illness: JOSE GARCIA is a 68 year old male who presented to the ER with peripheral edema and shortness of breath. Hospital Course Hospital Course: Patient was recently discharged from [facility] 10 days ago was at acute rehab at [facility]. Patient been in [facility] for 3 days when he developed acute peripheral edema shortness of breath and was returned to the emergency room to be found in acute exacerbation of congestive heart failure with dyspnea. Patient was using accessory muscles pulmonary vascular congestion and rales were noted. He received IV Lasix and BiPAP and was referred to hospitalist for admission. Patient admits that he did have the last 3 days without any medication denies any chest pain nausea vomiting or diaphoresis. Patient was admitted to [facility]. Patient was followed by Dr. Avina in consultation. Patient will be discharged home at this time follow-up with his primary care protection in 1 week. I will write a prescription for 30 mg of M. Erika daily per Dr. Avina's request as well as nitroglycerin sublingual for chest pain. Patient will follow-up with primary care within 1 week. Physical Exam Vital Signs: Temp Pulse Resp BP Pulse Ox 98.0 F 76 17 165/72 H 97 04/19/19 19:45 04/20/19 07:52 04/20/19 07:52 04/19/19 22:37 04/20/19 07:52 Intake & Output 04/19/19 04/20/19 04/21/19 06:59 06:59 06:59 Intake Total 1665 Output Total 1520 Balance 145 Weight 100.3 kg 100 kg General appearance: PRESENT: no acute distress, well-developed, well-nourished Head exam: PRESENT: atraumatic, normocephalic Eye exam: PRESENT: conjunctiva pink, EOMI, PERRLA. ABSENT: scleral icterus Ear exam: PRESENT: normal external ear exam Mouth exam: PRESENT: moist, tongue midline Neck exam: ABSENT: carotid bruit, JVD, lymphadenopathy, thyromegaly Respiratory exam: PRESENT: clear to auscultation zachariah. ABSENT: rales, rhonchi, wheezes Cardiovascular exam: PRESENT: RRR. ABSENT: diastolic murmur, rubs, systolic murmur Pulses: PRESENT: normal dorsalis pedis pul Vascular exam: PRESENT: normal capillary refill GI/Abdominal exam: PRESENT: normal bowel sounds, soft. ABSENT: distended, guarding, mass, organolmegaly, rebound, tenderness Rectal exam: PRESENT: deferred Extremities exam: PRESENT: full ROM. ABSENT: calf tenderness, clubbing, pedal edema Neurological exam: PRESENT: alert, awake, oriented to person, oriented to place, oriented to time, oriented to situation, CN II-XII grossly intact. ABSENT: motor sensory deficit Psychiatric exam: PRESENT: appropriate affect, normal mood. ABSENT: homicidal ideation, suicidal ideation Skin exam: PRESENT: dry, intact, warm. ABSENT: cyanosis, rash Results Laboratory Results: WBC 4.5 10^3/uL (4.0-10.5) 04/20/19 04:47 RBC 2.95 10^6/uL (4.35-5.55) L 04/20/19 04:47 Hgb 9.1 g/dL (13.5-17.0) L 04/20/19 04:47 Hct 26.9 % (37.9-51.0) L 04/20/19 04:47 MCV 91 fl (80-97) 04/20/19 04:47 MCH 30.6 pg (27.0-33.4) 04/20/19 04:47 MCHC 33.6 g/dL (32.0-36.0) 04/20/19 04:47 RDW 14.6 % (11.5-14.0) H 04/20/19 04:47 Plt Count 173 10^3/uL (150-450) 04/20/19 04:47 Lymph % (Auto) 29.8 % (13-45) 04/20/19 04:47 [place] % (Auto) 11.2 % (3-13) 04/20/19 04:47 Eos % (Auto) 7.2 % (0-6) H 04/20/19 04:47 Baso % (Auto) 1.1 % (0-2) 04/20/19 04:47 Reticulocyte # 0.051 10^6/uL (0.028-0.122) 04/19/19 05:47 Absolute Neuts (auto) 2.3 10^3/uL (1.7-8.2) 04/20/19 04:47 Absolute Lymphs (auto) 1.3 10^3/uL (0.5-4.7) 04/20/19 04:47 Absolute Monos (auto) 0.5 10^3/uL (0.1-1.4) 04/20/19 04:47 Absolute Eos (auto) 0.3 10^3/uL (0.0-0.6) 04/20/19 04:47 Absolute Basos (auto) 0.0 10^3/uL (0.0-0.2) 04/20/19 04:47 Seg Neutrophils % 50.7 % (42-78) 04/20/19 04:47 Retic Count (auto) 1.62 % (0.66-2.85) 04/19/19 05:47 VBG pH 7.30 (7.30-7.42) 04/19/19 01:50 VBG pCO2 62.5 mmHg (35-63) 04/19/19 01:50 VBG HCO3 30.0 mmol/L (20-32) 04/19/19 01:50 VBG Base Excess 2.3 mmol/L 04/19/19 01:50 Sodium 135.9 mmol/L (137-145) L 04/20/19 04:47 Potassium 3.9 mmol/L (3.6-5.0) 04/20/19 04:47 Chloride 102 mmol/L (98-107) 04/20/19 04:47 Carbon Dioxide 28 mmol/L (22-30) 04/20/19 04:47 Anion Gap 6 (5-19) 04/20/19 04:47 BUN 31 mg/dL (7-20) H 04/20/19 04:47 Creatinine 1.20 mg/dL (0.52-1.25) 04/20/19 04:47 Est GFR ( Amer) > 60 (>60) 04/20/19 04:47 Est GFR (MDRD) Non-Af > 60 (>60) 04/20/19 04:47 Glucose 175 mg/dL (75-110) H 04/20/19 04:47 POC Glucose 232 mg/dL (70-110) H 04/19/19 22:36 Calcium 8.2 mg/dL (8.4-10.2) L 04/20/19 04:47 Magnesium 1.6 mg/dL (1.6-2.3) 04/19/19 05:47 Iron 35.2 ug/dL (49-181) L 04/19/19 05:47 TIBC 158 ug/dL (250-450) L 04/19/19 05:47 % Saturation 22 % 04/19/19 05:47 Ferritin 243.00 ng/mL (17.9-464.0) 04/19/19 05:47 Total Bilirubin 0.3 mg/dL (0.2-1.3) 04/19/19 01:50 Direct Bilirubin 0.2 mg/dL (0.0-0.4) 04/19/19 01:50 Neonat Total Bilirubin Not Reportable 04/19/19 01:50 Neonat Direct Bilirubin Not Reportable 04/19/19 01:50 Neonat Indirect Bili Not Reportable 04/19/19 01:50 AST 22 U/L (17-59) 04/19/19 01:50 ALT 36 U/L (<50) 04/19/19 01:50 Alkaline Phosphatase 69 U/L (38-126) 04/19/19 01:50 Creatine Kinase 65 U/L (55-170) 04/19/19 01:50 CK-MB (CK-2) 4.20 ng/mL (<4.55) 04/19/19 01:50 Troponin I 0.098 ng/mL 04/20/19 04:47 NT-Pro-B Natriuret Pep 04079 pg/mL (5-900) H 04/19/19 01:50 Total Protein 5.8 g/dL (6.3-8.2) L 04/19/19 01:50 Albumin 3.2 g/dL (3.5-5.0) L 04/19/19 01:50 Vitamin B12 388.0 pg/mL (239-931) 04/19/19 05:47 Folate 4.48 ng/mL (>2.76) 04/19/19 05:47 04/19/19 04/19/19 04/19/19 01:50 04:09 05:47 CK-MB (CK-2) 4.20 Troponin I 0.247 0.289 0.291 NT-Pro-B Natriuret Pep 02775 H 04/19/19 04/19/19 04/20/19 11:31 17:31 04:47 CK-MB (CK-2) Troponin I 0.252 0.195 0.098 NT-Pro-B Natriuret Pep Impressions: Chest X-Ray 04/19/19 00:42 IMPRESSION: Possible left basilar pneumonia. Bilateral interstitial pulmonary thickening. Diagnostic possibilities include interstitial pneumonia and interstitial edema. copyright 2010 [employer]- All Rights Reserved Plan Time Spent: Greater than 30 Minutes Stroke Is this a Stroke Patient?: No Acute Heart Failure - Is this a Heart Failure Patient?: Yes Documentation of LVEF assessment?: Yes LVEF < 40%?: No- if no continue to question #3 3. Anticoagulant therapy for permanect/persistent/paraoxysmal Afib or Aflutter: N/A Follow-up Appointment scheduled within 7 days?: Yes
--- NOTE | 2019-04-20 12:31 | RADIOLOGY REPORT (SQ) ---
EXAM DESCRIPTION: CT CHEST WITHOUT COMPLETED DATE/TIME: 04/20/2019 9:00 am REASON FOR STUDY: ILD (HI-RES) COMPARISON: None. TECHNIQUE: CT scan performed of the chest without intravenous contrast. Images reviewed with lung, soft tissue and bone windows. Reconstructed coronal and sagittal MPR images reviewed. All images st ored on PACS. All CT scanners at this facility use dose modulation, iterative reconstruction, and/or weight based d osing when appropriate to reduce radiation dose to as low as reasonably achievable (ALARA). [facility]: Dose Right [facility]: CareDose [facility]: Dose Right [facility]: Teradose 4D [facility]: InEnTec LIMITATIONS: No technical limitations. FINDINGS: LUNGS AND PLEURA: The trachea and main bronchi are patent. There is mild bronchial wall t hickening without bronchiectasis or mucus plugging. In the absence of supine or inspiratory/expirato ry images evaluation for air trapping is limited. There are moderately-sized bilateral effusions and there is thickening of the interlobular septa in t he upper zones. There are diffuse alveolar ground-glass opacities. There is no peripheral reticulation or other findings of fibrosis such as honeycombing. HILAR AND MEDIASTINAL STRUCTURES: Evaluation of the alfred for adenopathy is limited in the absence of intravenous contrast. There is no enlarged mediastinal adenopathy. HEART AND VASCULAR STRUCTURES: There is severe atherosclerotic calcification of the coronary arteries . There is no cardiomegaly or pericardial effusion UPPER ABDOMEN: Limited evaluation. THYROID AND OTHER SOFT TISSUES: No masses or adenopathy. BONES: No acute findings. HARDWARE: None in the chest. OTHER: No other findings. IMPRESSION: Sequential 10 mm slices of the chest were obtained in the lung window. No supine or ins piratory/ expiratory images were obtained. As stated above, there moderately sized bilateral pleural effusions with thickening of the interlobular septa in the upper lobes and mild diffuse alveolar beryl und-glass opacities. These findings could be related to volume overload/ pulmonary edema. There are no findings of fibrosis. TECHNICAL DOCUMENTATION: JOB ID: [id number] Quality ID # [id number]: Final reports with documentation of one or more dose reduction techniques (e.g., Au tomated exposure control, adjustment of the mA and/or kV according to patient size, use of iterative reconstruction technique) 2010 [employer]- All Rights Reserved Reading location - IP/workstation name: [email or web address]
[2019-04-20 13:18] VITALS: BP 173/73
--- NOTE | 2019-04-20 19:14 | EKG REPORT ---
SEVERITY:- ABNORMAL ECG - SINUS RHYTHM SHORT IN INTERVAL, ACCELERATED AV CONDUCTION LOW VOLTAGE IN FRONTAL LEADS NONSPECIFIC T ABNORMALITIES, LATERAL LEADS PROBABLE ECTOPIC ATRIAL RHYTHM : Confirmed by: Simran Sanchez MD 20-Apr-2019 19:14:11
--- NOTE | 2019-04-20 19:21 | Progress Note ---
Provider Note Provider Note: CARDIOLOGY PROGRESS NOTE by Dr. Simran Lisa on Subjective: The patient denies any chest pain or discomfort. There is no PND orthopnea. There is no arrhythmia seen on the monitor. The patient has no further shortness of breath. There is no bleeding on Eliquis. There is no recurrence of atrial flutter. There is no ventricular arrhythmia seen. There is no TIA CVA symptoms. Physical EXAMINATION: The patient is well-built and well-nourished in no acute distress. Selected Entries 04/20/19 04/20/19 07:39 07:52 Temperature 98.1 F Temperature Oral Source Pulse Rate 70 Respiratory 20 Rate Blood Pressure 136/55 H Blood Pressure 82 Mean BP Location Right Arm BP Position Supine O2 Sat by Pulse 95 Oximetry Fraction of 28 Inspired Oxygen (FIO2) Oxygen Flow 2.00 Rate Oxygen Delivery Nasal Cannula Method HEAD: Is atraumatic. Normocephalic. EYES: Pupils are equal round reactive to light. ENT is negative. NECK: Supple. There is no JVD. There is no accessory muscle respiration use. Trachea central. LUNGS: There is diminished air entry and prolonged expiration. On percussion there is hyperresonance. There there are no rhonchi rales or wheezing.. HEART: S1-S2 is heard. S1 is of normal intensity. There is no S3 gallop. There is no S4 gallop there is systolic murmur in the left sternal border and the apex there is no rub. ABDOMEN: Is obese. There is no hepatospleno megaly. Bowel sounds well heard. EXTREMITIES: Femorals are diminished there is no femoral bruits. Leg pulses are diminished. There is trace pedal edema in the right lower extremity. There is no DVT or cellulitis. There is no calf tenderness. There is no cyanosis or clubbing.[employer] ME[employer]IC: The patient is conscious awake alert oriented x3 with no focal deficit. PSYCHIATRIC: Patient judgment insight are intact his affect is normal. Labs- All tests 24 hr 04/20/19 04/20/19 04/20/19 04:47 04:47 04:47 WBC 4.5 RBC 2.95 L Hgb 9.1 L Hct 26.9 L MCV 91 MCH 30.6 MCHC 33.6 RDW 14.6 H Plt Count 173 Lymph % (Auto) 29.8 [place] % (Auto) 11.2 Eos % (Auto) 7.2 H Baso % (Auto) 1.1 Absolute Neuts (auto) 2.3 Absolute Lymphs (auto) 1.3 Absolute Monos (auto) 0.5 Absolute Eos (auto) 0.3 Absolute Basos (auto) 0.0 Seg Neutrophils % 50.7 Sodium 135.9 L Potassium 3.9 Chloride 102 Carbon Dioxide 28 Anion Gap 6 BUN 31 H Creatinine 1.20 Est GFR ( Amer) > 60 Est GFR (MDRD) Non-Af > 60 Glucose 175 H POC Glucose Calcium 8.2 L Troponin I 0.098 04/20/19 11:04 WBC RBC Hgb Hct MCV MCH MCHC RDW Plt Count Lymph % (Auto) [place] % (Auto) Eos % (Auto) Baso % (Auto) Absolute Neuts (auto) Absolute Lymphs (auto) Absolute Monos (auto) Absolute Eos (auto) Absolute Basos (auto) Seg Neutrophils % Sodium Potassium Chloride Carbon Dioxide Anion Gap BUN Creatinine Est GFR ( Amer) Est GFR (MDRD) Non-Af Glucose POC Glucose 252 H Calcium Troponin I Chest X-Ray 04/19/19 00:42 IMPRESSION: Possible left basilar pneumonia. Bilateral interstitial pulmonary thickening. Diagnostic possibilities include interstitial pneumonia and interstitial edema. copyright 2011 [employer]- All Rights Reserved Chest CT 04/20/19 06:00 IMPRESSION: Sequential 10 mm slices of the chest were obtained in the lung window. No supine or inspiratory/ expiratory images were obtained. As stated above, there moderately sized bilateral pleural effusions with thickening of the interlobular septa in the upper lobes and mild diffuse alveolar ground-glass opacities. These findings could be related to volume overload/ pulmonary edema. There are no findings of fibrosis. IMPRESSION/RECOMMENDATION: 1. Chest pressure with PND symptoms. Most likely this is angina and equal and PND. Hence we will start the patient on topical nitrates. If patient tolerates this then we will start the patient on isosorbide mononitrate 60 mg p.o. daily. Later as an outpatient we will schedule the patient for IV Lexiscan Cardiolite stress test. 2. Elevated troponin I: This is most likely due to the downtrending of the troponin I seen in the last admission. No evidence of non-ST elevation SC this admission. 3. Chronic obstructive pulmonary disease: At present stable and at baseline with no acute exacerbation 4. Paroxysmal atrial flutter: Patient sinus rhythm. Continue his current beta- blockers and Eliquis 5. Diabetes mellitus: Continue antidiabetic regimen and asked to check serially. 6. Chronic kidney disease stage III: Note the GFR is come up to 52 compared to earlier which was in the 40s. 7. Peripheral vascular disease: Asymptomatic. 8. Lateral pleural effusions. We will continue patient on Lasix and recheck the patient's chest x-ray in 10 to 14 days as an outpatient. 9. No evidence of interstitial lung disease by CT scan without contrast [high- resolution CT of the chest] Patient's medications reviewed management plan discussed with the attending provider on the case. Medical decision making is of moderate complexity. 40 minutes spent on this patient more than 50% time spent direct patient care. Cardiac status is stable. Will discharge the patient home and follow-up the patient in the office. The patient has an appointment to see me on this coming Tuesday.
== END 2019-04-20 13:29 | disposition home or self-care (01) | DRG 291 ==
LOC: ER 00:11 → EH 05:17 → 3N 06:50
PROVIDERS: ADMIT Internal Medicine; ATTEND Internal Medicine
DX: I13.0 Hypertensive heart and chronic kidney disease with heart failure and stage 1 through stage 4 chronic kidney disease, or unspecified chronic kidney disease (principal); I50.33 Acute on chronic diastolic (congestive) heart failure; E11.51 Type 2 diabetes mellitus with diabetic peripheral angiopathy without gangrene; J44.9 Chronic obstructive pulmonary disease, unspecified; E11.22 Type 2 diabetes mellitus with diabetic chronic kidney disease; N18.3 Chronic kidney disease, stage 3 (moderate); I48.0 Paroxysmal atrial fibrillation; D50.9 Iron deficiency anemia, unspecified; Z79.899 Other long term (current) drug therapy; Z87.891 Personal history of nicotine dependence; Z79.01 Long term (current) use of anticoagulants; Z79.84 Long term (current) use of oral hypoglycemic drugs; Z91.14 Patient's other noncompliance with medication regimen
CPT/HCPCS: 36415; 71046; 71250; 80048; 80053; 82550; 82553; 82607; 82728; 82746; 82803; 82962; 83540; 83550; 83735; 83880; 84484; 85025; 85045; 93005; 93010; 94640; 94660; 94667; 94799; 96374; 99285; J1644; J1815; J1940; J3490; J7620

== ENCOUNTER 2019-04-29 16:13 | Inpatient (IN) | payer OTHER, MEDICARE ==
[2019-04-29] MEDS ORDERED: FUROSEMIDE INJ/PF 20 MG/2 ML SDV IV ONE (16:31)
--- NOTE | 2019-04-29 16:40 | EKG REPORT ---
SEVERITY:- ABNORMAL ECG - SINUS RHYTHM LOW VOLTAGE IN FRONTAL LEADS NONSPECIFIC T ABNORMALITIES, LATERAL LEADS : Confirmed by: Javed Rodriguez MD 29-Apr-2019 16:38:56
[2019-04-29 16:42] LABS: ABSOLUTE BASOPHILS # (AUTO) 0.1 10^3/uL (0.0-0.2); ABSOLUTE EOSINOPHILS # (AUTO) 0.1 10^3/uL (0.0-0.6); ABSOLUTE LYMPHOCYTES (AUTO) 2.3 10^3/uL (0.5-4.7); ABSOLUTE MONOCYTES (AUTO) 0.7 10^3/uL (0.1-1.4); ABSOLUTE NEUT (AUTO) 4.8 10^3/uL (1.7-8.2); BASOPHILS % (AUTO) 0.7 % (0-2); EOSINOPHILS % (AUTO) 0.7 % (0-6); HEMATOCRIT 31.7 % (37.9-51.0); HEMOGLOBIN 10.4 g/dL (13.5-17.0); LYMPHOCYTES % (AUTO) 28.9 % (13-45); MEAN CORPUSCULAR HEMOGLOBIN 31.3 pg (27.0-33.4); MONOCYTES % (AUTO) 8.8 % (3-13); PLATELET COUNT 299 10^3/uL (150-450); RED BLOOD COUNT 3.34 10^6/uL (4.35-5.55); RED CELL DISTRIBUTION WIDTH 15.3 % (11.5-14.0); SEGMENTED NEUTROPHILS % (AUTO) 60.9 % (42-78); TOTAL CELLS COUNTED % (AUTO) 100 %; WHITE BLOOD COUNT 7.9 10^3/uL (4.0-10.5)
--- NOTE | 2019-04-29 16:43 | ER Document Report ---
ED Respiratory Problem - General Chief Complaint: Respiratory Distress Stated Complaint: SHORTNESS OF BREATH Time Seen by Provider: 04/29/19 16:19 Notes: Mr. Fitzpatrick is a 68-year-old male with PMH of hypertension, hyperlipidemia, diabetes, CHF, COPD BIBA for SOB. Patient states that he has been dealing with this for approximately 2 months now. He had previously been admitted to the ICU for approximately 14 days at which point he was intubated, with bilateral chest tubes. Chest tubes were for bilateral pleural effusions. He also had pneumonia at that point in time. Patient states that today his shortness of breath worsened acutely. He is not normally on BiPAP at night or nasal cannula oxygen. He called EMS. On their arrival the patient was hypoxic to 70% on room air. On arrival to the ED he was 77%. Patient placed immediately on BiPAP. States he took his 40 mg p.o. Lasix earlier today at noon. He states that he suffers f rom chronic bilateral lower extremity edema however it is significantly improved. He denies any fever or chills, chest pain, abdominal pain, nausea, vomiting or diarrhea. He does endorse however a cough is nonproductive of sputum. states that the shortness of breath worsened acutely today however she noted the cough beginning yesterday evening. TRAVEL OUTSIDE OF THE [place] IN LAST 30 DAYS: No - Related Data Allergies/Adverse Reactions: No Known Allergies Allergy (Verified 04/19/19 00:42) Home Medications: metoprolol. amlodipine. atorvastatin. gabapentin. metformin. eliquis. iron. lasix. isosorbide mononitrate. nitro Past Medical History - Social History Smoking Status: Former Smoker Family History: Reviewed & Not Pertinent Patient has suicidal ideation: No Patient has homicidal ideation: No - Past Medical History Cardiac Medical History: Denies: Hx Coronary Artery Disease, Hx Heart Attack, Hx Hypertension Pulmonary Medical History: Reports: Hx COPD Denies: Hx Asthma, Hx Bronchitis, Hx Pneumonia Neurological Medical History: Denies: Hx Cerebrovascular Accident, Hx Seizures Endocrine Medical History: Reports: Hx Diabetes Mellitus Type 2 Musculoskeletal Medical History: Denies Hx Arthritis Psychiatric Medical History: Denies: Hx Depression - Immunizations Hx Diphtheria, Pertussis, Tetanus Vaccination: Yes Physical Exam - Vital signs Vitals: Pulse Ox 77 L 04/29/19 16:15 Interpretation: Hypoxic, Tachypneic - General General appearance: Alert In distress: Moderate - HEENT Head: Normocephalic, Atraumatic Eyes: Normal Pupils: PERRL - Respiratory Respiratory status: Respiratory distress, Labored, Retractions, Tachypnea Chest status: Nontender Breath sounds: Decreased air movement, Rales - Decreased at the bases Chest palpation: Normal - Cardiovascular Rhythm: Regular Heart sounds: Normal auscultation Murmur: No - Abdominal Inspection: Normal Distension: No distension Bowel sounds: Normal Tenderness: Nontender Organomegaly: No organomegaly - Back Back: Normal, Nontender - Extremities General upper extremity: Normal inspection, Nontender, Normal color, Normal ROM, Normal temperature General lower extremity: Normal inspection, Nontender, Normal color, Normal ROM, Normal temperature, Normal weight bearing. No: Ahsan's sign - Neurological Neuro grossly intact: Yes Cognition: Normal Orientation: AAOx4 [place] Coma Scale Eye Opening: Spontaneous Roselyn Coma Scale Verbal: Oriented [place]n Coma Scale Motor: Obeys Commands Roselyn Coma Scale Total: 15 Speech: Normal Motor strength normal: LUE, RUE, LLE, RLE Sensory: Normal - Psychological Associated symptoms: Normal affect, Normal mood - Skin Skin Temperature: Warm Skin Moisture: Dry Skin Color: Normal Course - Re-evaluation Re-evalutation: Patient is ill-appearing but nontoxic. Initial vitals notable for tachypnea and hypoxia. Patient was immediately placed on BiPAP. Differential diagnosis includes pneumonia, sepsis, volume overload, CHF exacerbation, electrolyte abnormality, medication noncompliance. 04/29/19 16:5 Full set of labs including blood cultures and lactic acid ordered. Patient ordered for Lasix 40 mg as he has bilateral lower extremity pitting edema 2+ at the mid novak and 1+ below the knee. Also has decreased air movement bilateral bases with rales consistent with volume overload, the right is worse than the left. Patient is significantly improved with oxygen levels 96% on BiPAP. Will obtain ABG after the patient's been on the BiPAP for presently 30 minutes. Blood cultures obtained. Patient's CBC within normal limits. No significant leukocytosis or left shift. H&H is stable and essentially unchanged from prior. However patient's TMP notable for an acute creatinine bump from 1.28 on 04/20/19 to Cr 2.85 today. Upon further evaluation, it appears as if the patient's Cr has been equally elevated in the past. [place] is ever so slightly elevated at 0.064 however it is actually downtrending from April 20. Patient significantly improved after BiPAP. 04/29/19 19:38 Discussed w/ nighttime hospitalist Dr. Owens. Accepted to [facility]. - Vital Signs Vital signs: Temp Pulse Resp BP Pulse Ox 97.3 F 12 120/52 L 94 04/29/19 16:17 04/29/19 20:01 04/29/19 20:01 04/29/19 20:01 - Laboratory Result Diagrams: 04/29/19 16:00 04/29/19 16:00 Laboratory results interpreted by me: 04/29/19 04/29/19 04/29/19 16:00 16:00 16:00 RBC 3.34 L Hgb 10.4 L Hct 31.7 L RDW 15.3 H BUN 49 H Creatinine 2.85 H Est GFR ( Amer) 27 L Est GFR (MDRD) Non-Af 22 L Glucose 141 H Lactic Acid AST 80 H Creatine Kinase 415 H NT-Pro-B Natriuret Pep 47419 H Total Protein 6.0 L Albumin 3.4 L 04/29/19 16:28 RBC Hgb Hct RDW BUN Creatinine Est GFR ( Amer) Est GFR (MDRD) Non-Af Glucose Lactic Acid 2.7 H AST Creatine Kinase NT-Pro-B Natriuret Pep Total Protein Albumin - EKG Interpretation by Ut EKG shows normal: Sinus rhythm - Low voltage, [place], QRS Complexes, ST-T Waves Rate: Bradycardia Rhythm: NSR Critical Care Note - Critical Care Note Total time excluding time spent on procedures (mins): 45 - Respiratory status, hydration, infection Discharge - Discharge Clinical Impression: Acute respiratory failure, Hypoxia, CHF exacerbation, Lower extremity edema, VIDYA (acute kidney injury) Condition: Good Disposition: ADMITTED INPATIENT Admitting Provider: Roman (Hospitalist) Unit Admitted: [facility]
[2019-04-29 16:46] LABS: MEAN CORPUSCULAR VOLUME 95 fl (80-97)
--- NOTE | 2019-04-29 16:52 | RADIOLOGY REPORT (SQ) ---
EXAM DESCRIPTION: CHEST SINGLE VIEW COMPLETED DATE/TIME: 04/29/2019 4:40 pm REASON FOR STUDY: hypoxia COMPARISON: Chest radiographs 04/19/2019 CT chest 04/20/2014 EXAM PARAMETERS: NUMBER OF VIEWS: One view. TECHNIQUE: Single frontal radiographic view of the chest acquired. RADIATION DOSE: NA LIMITATIONS: None. FINDINGS: LUNGS AND PLEURA: Perihilar and bibasilar consolidation. Moderate bilateral pleural effus ions. Linear mid lung airspace opacities. MEDIASTINUM AND HILAR STRUCTURES: No masses. Contour normal. HEART AND VASCULAR STRUCTURES: Heart normal in size. Normal vasculature. BONES: No acute findings. HARDWARE: None in the chest. OTHER: No other significant finding. IMPRESSION: Moderate bilateral pleural effusions and perihilar/bibasilar consolidations suggestive o f pulmonary edema and atelectasis. Superimposed infectious process cannot be excluded. TECHNICAL DOCUMENTATION: JOB ID: [id number] [employer]- All Rights Reserved Reading location - IP/workstation name: [email or web address]
[2019-04-29 17:00] LABS: ALBUMIN 3.4 g/dL (3.5-5.0); ALKALINE PHOSPHATASE 99 U/L (38-126); ANION GAP 11 (5-19); ASPARTATE AMINO TRANSFERASE 80 U/L (17-59); BILIRUBIN,DIRECT 0.2 mg/dL (0.0-0.4); BILIRUBIN,TOTAL 0.3 mg/dL (0.2-1.3); BLOOD UREA NITROGEN 49 mg/dL (7-20); CALCIUM 8.6 mg/dL (8.4-10.2); CARBON DIOXIDE 27 mmol/L (22-30); CHLORIDE 102 mmol/L (98-107); CREATINE KINASE 415 U/L (55-170); GLUCOSE 141 mg/dL (75-110)
[2019-04-29 17:11] LABS: CREATINE KINASE MB 3.68 ng/mL (<4.55)
[2019-04-29 17:17] LABS: TROPONIN I 0.064 ng/mL
[2019-04-29] MEDS ORDERED: ASPIRIN 81 MG TABLET, CHEWABLE PO ONE (18:12)
[2019-04-29] MEDS ORDERED: VANCOMYCIN HCL INJ 1000 MG VIAL IV ONE (18:12)
[2019-04-29] MEDS ORDERED: PIPERACILLIN/TAZOBACTAM 3.375 GM VIAL IV ONE (18:12)
[2019-04-29] MEDS ORDERED: MAG HYDROX/AL HYDROX/SIMETH SUSP 30 ML UDCUP PO PRN (20:16)
[2019-04-29] MEDS ORDERED: TEMAZEPAM 15 MG CAPSULE PO PRN (20:16)
[2019-04-29] MEDS ORDERED: LEVALBUTEROL HCL NEB 0.63 MG/3 ML AMPUL NEB PRN (20:16)
[2019-04-29] MEDS ORDERED: ONDANSETRON HCL INJ/PF 4 MG/2 ML SDV IV PRN (20:16)
[2019-04-29] MEDS ORDERED: MAGNESIUM HYDROXIDE SUSP 30 ML UDCUP PO PRN (20:16)
[2019-04-29] MEDS ORDERED: DEXTROSE 50%-WATER 25 GM/50 ML DISP.SYRIN IV PRN ×2 (20:25)
[2019-04-29] MEDS ORDERED: GLUCAGON,HUMAN RECOMB 1 MG INJ IM PRN (20:25)
[2019-04-29] MEDS ORDERED: MORPHINE SULFATE 10 MG/ML INJ IV PRN (20:25)
[2019-04-29] MEDS ORDERED: NITROGLYCERIN 0.4 MG/TAB 25 TAB/BOTTLE SL PRN (20:25)
[2019-04-29] MEDS ORDERED: ACETAMINOPHEN 325 MG TABLET PO PRN (20:25)
[2019-04-29] MEDS ORDERED: HYDRALAZINE HCL INJ/PF 20 MG/1 ML SDV IV PRN (20:25)
[2019-04-29] MEDS ORDERED: DEXTROSE 40% GEL 15 GM TUBE PO PRN ×2 (20:25)
[2019-04-29] MEDS: INSULIN REG, HUMAN 100 UNIT/ML 3 ML VIAL (PYX) SUBCUT SCH ×2 (21:21→23:51)
[2019-04-29 22:13] LABS: TROPONIN I 0.088 ng/mL
[2019-04-29 23:26] LABS: ARTERIAL BLOOD BASE EXCESS 0.5 mmol/L; ARTERIAL BLOOD FIO2 40%; ARTERIAL BLOOD H2CO3 2.04 mmol/L (1.05-1.35); ARTERIAL BLOOD HCO3 28.9 mmol/L (20-24); ARTERIAL BLOOD O2 SATURATION 71.4 % (94-98); ARTERIAL BLOOD PCO2 67.8 mmHg (35-45); ARTERIAL BLOOD PH 7.25 (7.35-7.45); ARTERIAL BLOOD PO2 44.5 mmHg (80-100); ARTERIAL BLOOD TOTAL CO2 30.9 mmol/L (23-27)
[2019-04-29] MEDS: LEVALBUTEROL HCL NEB 1.25 MG/3 ML AMPUL NEB SCH (23:41)
[2019-04-29] MEDS: IPRATROPIUM BROMIDE 0.02% NEB 0.5 MG/2.5 ML AMPUL NEB SCH (23:41)
[2019-04-29] MEDS: ATORVASTATIN CALCIUM 40 MG TABLET PO SCH (23:49)
[2019-04-29] MEDS: NITROGLYCERIN 2% OINTMENT 1 GM PACKET TP SCH (23:50)
[2019-04-29] MEDS: BUMETANIDE INJ/PF 1 MG/4 ML SDV IV SCH (23:50)
[2019-04-29] MEDS: CEFEPIME 1 GM/D5W RTU 1 GM/50 ML RTUPB IV SCH (23:51)
[2019-04-29] MEDS: METOPROLOL SUCCINATE 50 MG TAB.SR.24H PO SCH (23:52)
--- NOTE | 2019-04-30 00:03 | PDOC H&P ---
History of Present Illness Admission Date/PCP: 04/29/2019 19:42 REYNA PENN MD Patient complains of: Dyspnea History of Present Illness: JOSE GARCIA is a 68 year old male who presented to the emergency room with acute dyspnea. He admits a history of acutely worsening dyspnea since this mor cristofer. His dyspnea is markedly worsened by any exertion or activity. His acute dyspnea has been accompanied by orthopnea and a nonproductive cough. He denies other associated or accompanying signs and symptoms. He states his chronic lower extremity edema is actually better than his usual status. He was recently hospitalized for an extensive stay for treatment of congestive heart failure. He admits numerous prior similar episodes. He has not identified any additional aggravating or ameliorating factors for his dyspnea. In the emergency room he was found to have severe hypoxia (79% O2 sat on room air), with markedly increased work of breathing and was thus placed on BiPAP. Radiographic and ultrasound studies confirmed the presence of bilateral pulmonary edema and his creatinine was noted to have increased from a prior level of 1.5-2.85 and a markedly elevated BNP was noted. He was given empiric antibiotic therapy for a possible healthcare acquired pneumonia in the emergency room. He was subsequently admitted to the hospital for further evaluation and treatment. Past Medical History Cardiac Medical History: Reports: Atrial Fibrillation, Congestive Heart Failure, Coronary Artery Disease, Myocardial Infarction, Hyperlipidema Denies: DVT, Hypertension, Pulmonary Embolism Pulmonary Medical History: Reports: Chronic Obstructive Pulmonary Disease (COPD), Intubation, Respiratory Failure Denies: Asthma, Bronchitis, Pneumonia EENT Medical History: Denies: Cataracts, Ears - Hearing aids Neurological Medical History: Denies: Hemorrhagic CVA, Ischemic CVA, Seizures Endocrine Medical History: Reports: Diabetes Mellitus Type 2 Denies: Diabetes Mellitus Type 1, Hyperthyroidism, Hypothyroidism Renal/ Medical History: Reports: Chronic Kidney Disease Denies: Nephrolithiasis Malignancy Medical History: Reports: None GI Medical History: Denies: Cirrhosis, Crohn's Disease, Hepatitis, Ulcerative Colitis - 2 admissions Musculoskeltal Medical History: Denies: Arthritis, Gout Skin Medical History: Denies: Eczema, Psoriasis Psychiatric Medical History: Reports: Tobacco Dependency Denies: Alcohol Dependency, Depression, Substance Abuse Traumatic Medical History: Reports: None Hematology: Denies: Anemia, Bleeding Tendencies Infectious Medical History: Denies: None Past Surgical History Past Surgical History: Reports: Other - Bilateral chest tubes on recent hospitalization Social History Information Source: Patient Lives with: Spouse/Significant other Smoking Status: Former Smoker Electronic Cigarette use?: No Frequency of Alcohol Use: None Hx Recreational Drug Use: No Drugs: None Hx Prescription Drug Abuse: No - Advance Directive Resuscitation Status: Full Code Surrogate healthcare decision maker:: Argentina Garcia Family History Family History: COPD. denies: CAD, DM, Hypertension, Malignancy Parental Family History Reviewed: Yes Children Family History Reviewed: No Sibling(s) Family History Reviewed.: Yes Medication/Allergy Home Medications: Amlodipine Besylate [Norvasc 10 mg Tablet] 10 mg PO DAILY 04/19/19 Apixaban [Eliquis 2.5 mg Tablet] 2.5 mg PO Q12 04/19/19 Atorvastatin Calcium [Lipitor 40 mg Tablet] 40 mg PO QHS 04/19/19 Gabapentin [Neurontin 300 mg Capsule] 300 mg PO Q12 04/19/19 Insulin Glargine,Hum.rec.anlog [Lantus Insulin 100 Unit/1 ml 10 ml] 15 unit SUBCUT DAILY 04/19/19 Metformin HCl 1,000 mg PO BID 04/19/19 Metoprolol Tartrate [Lopressor 50 mg Tablet] 50 mg PO Q12 04/19/19 Prednisone [Walt] 5 mg PO DAILY 04/19/19 Furosemide [Lasix 40 mg Tablet] 40 mg PO QAM #15 tablet 04/20/19 Isosorbide Mononitrate [Imdur 30 mg Tablet.er] 30 mg PO DAILY #30 tab.er.24h 04/20/19 Nitroglycerin [Nitrostat 0.4 mg (1/150 Gr) Tabs 25/Bottle] 1 tab SL Q5MP PRN #25 tab.subl 04/20/19 Allergies/Adverse Reactions: No Known Allergies Allergy (Verified 04/19/19 00:42) Review of Systems Constitutional: ABSENT: chills, fever(s) Eyes: ABSENT: visual disturbances, other - Eye pain Ears: ABSENT: hearing changes, other - Ear pain Nose, Mouth, and Throat: ABSENT: mouth pain, sore throat Cardiovascular: PRESENT: as per HPI, dyspnea on exertion, orthropnea. ABSENT: chest pain, edema, palpitations Respiratory: PRESENT: as per HPI, cough, dyspnea. ABSENT: sputum Gastrointestinal: ABSENT: abdominal pain, constipation, diarrhea, nausea, vomiting Genitourinary: ABSENT: dysuria, hematuria Musculoskeletal: ABSENT: back pain, joint swelling, muscle weakness Integumentary: ABSENT: pruritus, rash Neurological: ABSENT: confusion, convulsions, focal weakness, memory loss, syncope Psychiatric: ABSENT: anxiety, depression Endocrine: ABSENT: cold intolerance, heat intolerance Hematologic/Lymphatic: ABSENT: easy bleeding, easy bruising Allergic/Immunologic: ABSENT: seasonal rhinorrhea Physical Exam Vital Signs: Temp Pulse Resp BP Pulse Ox 97.3 F 21 H 114/53 L 96 04/29/19 16:17 04/29/19 17:01 04/29/19 17:01 04/29/19 17:01 Intake & Output 04/27/19 04/28/19 04/29/19 23:59 23:59 22:59 Weight 90.3 kg General appearance: PRESENT: cooperative, mild distress - Secondary to dyspnea, other - On BiPAP at the time of my exam Head exam: PRESENT: atraumatic, normocephalic Eye exam: PRESENT: conjunctiva pink. ABSENT: conjunctival injection, scleral icterus Ear exam: PRESENT: normal external ear exam. ABSENT: bleeding, drainage Mouth exam: PRESENT: dry mucosa, neck supple Neck exam: PRESENT: JVD - Bilateral. ABSENT: thyromegaly, tracheal deviation Respiratory exam: PRESENT: accessory muscle use, decreased breath sounds - Decreased breath sounds in the lower half of both lung suarez, prolonged expiratory phas - Minimally prolonged expiratory phase in all suarez, rales - Marked bilateral fine rales in lower lung suarez, symmetrical, wheezes - Minimal expiratory wheezes in all suarez, other - On BiPAP. ABSENT: rhonchi Cardiovascular exam: PRESENT: gallop - S4 gallop rhythm noted, RRR. ABSENT: clicks, rubs Pulses: PRESENT: normal carotid pulses, normal radial pulses. ABSENT: normal dorsalis pedis pul - Dorsalis pedis pulses decreased due to lower extremity edema bilaterally Vascular exam: PRESENT: normal capillary refill. ABSENT: pallor GI/Abdominal exam: PRESENT: normal bowel sounds, soft Rectal exam: PRESENT: deferred Extremities exam: PRESENT: pedal edema, +2 edema - 2+ pitting bilateral pretibial edema. ABSENT: joint swelling, tenderness Musculoskeletal exam: ABSENT: deformity, dislocation Neurological exam: PRESENT: alert, oriented to person, oriented to place, or iented to time, oriented to situation, reflexes normal, CN II-XII grossly intact. ABSENT: motor sensory deficit Psychiatric exam: PRESENT: appropriate affect, normal mood Skin exam: PRESENT: dry, intact, warm. ABSENT: jaundice, rash, urticaria Results Laboratory Results: 04/29/19 16:00 04/29/19 16:00 04/29/19 04/29/19 04/29/19 16:00 16:00 16:28 WBC 7.9 RBC 3.34 L Hgb 10.4 L Hct 31.7 L MCV 95 D MCH 31.3 MCHC 33.0 RDW 15.3 H Plt Count 299 Seg Neutrophils % 60.9 Sodium 139.7 Potassium 5.0 Chloride 102 Carbon Dioxide 27 Anion Gap 11 BUN 49 H Creatinine 2.85 H Est GFR ( Amer) 27 L Glucose 141 H Lactic Acid Cancelled Calcium 8.6 Total Bilirubin 0.3 AST 80 H Alkaline Phosphatase 99 Total Protein 6.0 L Albumin 3.4 L 04/29/19 16:28 WBC RBC Hgb Hct MCV MCH MCHC RDW Plt Count Seg Neutrophils % Sodium Potassium Chloride Carbon Dioxide Anion Gap BUN Creatinine Est GFR ( Amer) Glucose Lactic Acid 2.7 H Calcium Total Bilirubin AST Alkaline Phosphatase Total Protein Albumin 04/29/19 04/29/19 16:00 16:00 Creatine Kinase 415 H CK-MB (CK-2) 3.68 Troponin I 0.064 NT-Pro-B Natriuret Pep [id number] H Impressions: Chest X-Ray 04/29/19 16:31 IMPRESSION: Moderate bilateral pleural effusions and perihilar/bibasilar consolidations suggestive of pulmonary edema and atelectasis. Superimposed infectious process cannot be excluded. Assessment and Plan - Diagnosis (1) Acute pulmonary edema with congestive heart failure Is this a current diagnosis for this admission?: Yes (2) Acute respiratory failure with hypoxia Is this a current diagnosis for this admission?: Yes (3) Acute on chronic diastolic congestive heart failure Is this a current diagnosis for this admission?: Yes (4) Acute kidney injury Is this a current diagnosis for this admission?: Yes (5) Hypertension Qualifiers: Hypertension type: essential hypertension Qualified Code(s): I10 - Essential (primary) hypertension Is this a current diagnosis for this admission?: Yes (6) Diabetes mellitus type 2 in nonobese Is this a current diagnosis for this admission?: Yes (7) COPD (chronic obstructive pulmonary disease) Qualifiers: COPD type: unspecified COPD Qualified Code(s): J44.9 - Chronic obstructive pulmonary disease, unspecified Is this a current diagnosis for this admission?: Yes - Plan Summary Summary: Patient is admitted to [facility] and will be monitored closely. His medications will be adjusted due to his acute kidney injury. Due to his severe congestive heart failure and pulmonary edema he will not be given fluids initially but will be treated with intravenous morphine 2 mg IV q. one hour as needed severe dyspnea, diuretics using IV Bumex 1 mg every 4 hours, nitroglycerin ointment 1 g every 6 hours and BiPAP to maintain an O2 sat greater than 93%. Accu-Cheks will be performed before meals and at bedtime with sliding scale insulin for hyperglycemia and a hypoglycemic protocol in place. An aggressive pulmonary toilet utilizing Xopenex, Atrovent and Pulmicort delivered via nebulizer therapy will be provided for treatment of his COPD and empiric antibiotic therapy with cefepime will be provided to cover for the possibility of a healthcare acquired pneumonia. Blood cultures and urine cultures are pending. The patient's antihypertensive medications and congestive heart failure medications will again be adjusted in light of his renal failure. His diabetic regiment will also require adjustment due to his renal failure. He will be maintained on a heart healthy cardiac diet with diabetic carb 4 restrictions. A cardiology consultation with Dr. Sanchez will be obtained. - Time Time Spent with patient: 25-34 minutes Medications reviewed and adjusted accordingly: Yes Anticipated discharge: Home with Homehealth - Inpatient Certification Based on my medical assessment, after consideration of the patient's comorbidities, presenting symptoms, or acuity I expect that the services needed warrant INPATIENT care.: Yes I certify that my determination is in accordance with my understanding of Medicare's requirements for reasonable and necessary INPATIENT services [42 CFR 412.3e].: Yes Medical Necessity: Significant Comorbidiites Make Outpatient Treatment Too Risky, Need Close Monitoring Due to Risk of Patient Decompensation, Need For Continuous Telemetry Monitoring, Risk of Complication if Not Cared For in Hospital
[2019-04-30] MEDS ORDERED: CHLORPROMAZINE HCL INJ 25 MG/1 ML AMPULE IV PRN (00:04)
[2019-04-30] MEDS ORDERED: PROMETHAZINE HCL INJ 25 MG/1 ML VIAL IV PRN (00:05)
[2019-04-30] MEDS: INSULIN GLARGINE,HUM.REC.ANLOG 1,000 UNIT/10 ML VIAL SUBCUT SCH ×2 (00:08→21:33)
[2019-04-30] MEDS ORDERED: INFLUENZA QUAD (6MOS+) 2019-20 VAC 0.5 ML SYR IM ONE (02:42)
[2019-04-30] MEDS: BUMETANIDE INJ/PF 1 MG/4 ML SDV IV SCH ×5 (02:57→17:20)
[2019-04-30 04:08] LABS: CREATINE KINASE MB 2.54 ng/mL (<4.55); TROPONIN I 0.084 ng/mL
[2019-04-30] MEDS: NITROGLYCERIN 2% OINTMENT 1 GM PACKET TP SCH ×3 (05:00→17:20)
[2019-04-30] MEDS: PANTOPRAZOLE SODIUM 40 MG TABLET.DR PO SCH ×2 (05:28→17:20)
[2019-04-30 06:38] LABS: ARTERIAL BLOOD BASE EXCESS -0.8 mmol/L; ARTERIAL BLOOD H2CO3 1.99 mmol/L (1.05-1.35); ARTERIAL BLOOD HCO3 27.5 mmol/L (20-24); ARTERIAL BLOOD PCO2 66.1 mmHg (35-45); ARTERIAL BLOOD PH 7.24 (7.35-7.45); ARTERIAL BLOOD PO2 68.7 mmHg (80-100); ARTERIAL BLOOD TOTAL CO2 29.5 mmol/L (23-27)
[2019-04-30 06:41] LABS: ARTERIAL BLOOD FIO2 100%
--- NOTE | 2019-04-30 07:53 | PDOC PROGRESS REPORT ---
Subjective Progress Note for:: 04/30/19 Subjective:: 04/30/2019-no complaints Reason For Visit: ACUTE PULMONARY EDEMA, ACUTE RESPIRATORY FAILURE Physical Exam Vital Signs: Temp Pulse Resp BP Pulse Ox 97.8 F 61 18 94/47 L 93 04/30/19 03:03 04/30/19 07:00 04/30/19 03:03 04/30/19 03:03 04/30/19 03:03 Intake & Output 04/29/19 04/30/19 05/01/19 06:59 06:59 06:59 Intake Total 150 Balance 150 Weight 95.3 kg General appearance: PRESENT: no acute distress, well-developed, well-nourished Neck exam: ABSENT: carotid bruit, JVD, lymphadenopathy, thyromegaly Respiratory exam: PRESENT: clear to auscultation zachariah, decreased breath sounds, rales, symmetrical, unlabored, other - BiPAP. ABSENT: rhonchi, wheezes Cardiovascular exam: PRESENT: RRR. ABSENT: diastolic murmur, rubs, systolic mu rmur Pulses: PRESENT: +1 pedal pulses bilateral Vascular exam: PRESENT: normal capillary refill GI/Abdominal exam: PRESENT: normal bowel sounds, soft. ABSENT: distended, guarding, mass, organolmegaly, rebound, tenderness Extremities exam: PRESENT: full ROM. ABSENT: calf tenderness, clubbing, pedal edema Neurological exam: PRESENT: alert, awake, oriented to person, oriented to place, oriented to time, oriented to situation, CN II-XII grossly intact. ABSENT: motor sensory deficit Psychiatric exam: PRESENT: appropriate affect, normal mood. ABSENT: homicidal ideation, suicidal ideation Skin exam: PRESENT: dry, intact, warm. ABSENT: cyanosis, rash Results Laboratory Results: 04/29/19 16:00 04/29/19 16:00 04/29/19 04/29/19 04/29/19 16:00 16:00 16:28 WBC 7.9 RBC 3.34 L Hgb 10.4 L Hct 31.7 L MCV 95 D MCH 31.3 MCHC 33.0 RDW 15.3 H Plt Count 299 Seg Neutrophils % 60.9 Carbonic Acid HCO3/H2CO3 Ratio ABG pH ABG pCO2 ABG pO2 ABG HCO3 ABG O2 Saturation ABG Base Excess FiO2 Sodium 139.7 Potassium 5.0 Chloride 102 Carbon Dioxide 27 Anion Gap 11 BUN 49 H Creatinine 2.85 H Est GFR ( Amer) 27 L Glucose 141 H Lactic Acid Cancelled Calcium 8.6 Total Bilirubin 0.3 AST 80 H Alkaline Phosphatase 99 Total Protein 6.0 L Albumin 3.4 L 04/29/19 04/29/19 04/29/19 16:28 21:32 21:50 WBC RBC Hgb Hct MCV MCH MCHC RDW Plt Count Seg Neutrophils % Carbonic Acid 2.04 H HCO3/H2CO3 Ratio 14:1 ABG pH 7.25 L ABG pCO2 67.8 H ABG pO2 44.5 L ABG HCO3 28.9 H ABG O2 Saturation 71.4 L ABG Base Excess 0.5 FiO2 40% Sodium Potassium Chloride Carbon Dioxide Anion Gap BUN Creatinine Est GFR ( Amer) Glucose Lactic Acid 2.7 H 1.6 Calcium Total Bilirubin AST Alkaline Phosphatase Total Protein Albumin 04/30/19 06:25 WBC RBC Hgb Hct MCV MCH MCHC RDW Plt Count Seg Neutrophils % Carbonic Acid 1.99 H HCO3/H2CO3 Ratio 13:1 ABG pH 7.24 L ABG pCO2 66.1 H ABG pO2 68.7 L ABG HCO3 27.5 H ABG O2 Saturation 90.0 L ABG Base Excess -0.8 FiO2 100% Sodium Potassium Chloride Carbon Dioxide Anion Gap BUN Creatinine Est GFR ( Amer) Glucose Lactic Acid Calcium Total Bilirubin AST Alkaline Phosphatase Total Protein Albumin 04/29/19 04/29/19 04/29/19 16:00 16:00 21:32 Creatine Kinase 415 H 265 H CK-MB (CK-2) 3.68 Troponin I 0.064 NT-Pro-B Natriuret Pep [id number] H 04/29/19 04/30/19 04/30/19 21:32 02:57 03:02 Creatine Kinase 207 H CK-MB (CK-2) 3.00 2.54 Troponin I 0.088 0.084 NT-Pro-B Natriuret Pep Impressions: Chest X-Ray 04/29/19 16:31 IMPRESSION: Moderate bilateral pleural effusions and perihilar/bibasilar consolidations suggestive of pulmonary edema and atelectasis. Superimposed infectious process cannot be excluded. Assessment and Plan - Plan Summary Summary: Patient is admitted to [facility] and will be monitored closely. His medications will be adjusted due to his acute kidney injury. Due to his severe congestive heart failure and pulmonary edema he will not be given fluids initially but will be treated with intravenous morphine 2 mg IV q. one hour as needed severe dyspnea, diuretics using IV Bumex 1 mg every 4 hours, nitroglycerin ointment 1 g every 6 hours and BiPAP to maintain an O2 sat greater than 93%. Accu-Cheks will be performed before meals and at bedtime with sliding scale insulin for hyperglycemia and a hypoglycemic protocol in place. An aggressive pulmonary toilet utilizing Xopenex, Atrovent and Pulmicort delivered via nebulizer therapy will be provided for treatment of his COPD and empiric antibiotic therapy with cefepime will be provided to cover for the possibility of a healthcare acquired pneumonia. Blood cultures and urine cultures are pending. The patient's antihypertensive medications and congestive heart failure medications will again be adjusted in light of his renal failure. His diabetic regiment will also require adjustment due to his renal failure. He will be maintained on a heart healthy cardiac diet with diabetic carb 4 restrictions. A cardiology consultation with Dr. Sanchez will be obtained. 04/30/2019- acute pulmonary edema with congestive heart failure diastolic in nature-patient remains on BiPAP at this time. We will continue diuresis with Bumex 1 mg every 4 hours. Nitroglycerin ointment 1 g every 6 hours. We will continue to follow Acute respiratory failure with hypoxia-blood gas still shows an acute hypercapnic respiratory failure with partial compensation. I will have respiratory therapy adjust BiPAP settings and repeat gas later this afternoon. Acute on chronic diastolic congestive heart failure see #1 Acute kidney injury with the a.m. labs will make change plan of care as appropriate Hypertension-stable at this time will make adjustments based on patient needs Type 2 diabetes mellitus in nonobese-sliding scale insulin before meals and at bedtime. We will continue home medications once appropriate we will hold metformin as patient does have acute kidney injury. Acute exacerbation of chronic COPD. Continue bronchodilators, and cefepime. Will follow make adjustments based on patient needs. - Time Time Spent with patient: 15-24 minutes - Inpatient Certification Based on my medical assessment, after consideration of the patient's comorbidities, presenting symptoms, or acuity I expect that the services needed warrant INPATIENT care.: Yes I certify that my determination is in accordance with my understanding of Medicare's requirements for reasonable and necessary INPATIENT services [42 CFR 412.3e].: Yes Medical Necessity: Significant Comorbidiites Make Outpatient Treatment Too Risky, Need Close Monitoring Due to Risk of Patient Decompensation, Need for IV Antibiotics
[2019-04-30] MEDS: INSULIN REG, HUMAN 100 UNIT/ML 3 ML VIAL (PYX) SUBCUT SCH ×4 (08:03→21:33)
[2019-04-30] MEDS: BUDESONIDE NEB 0.5 MG/2 ML AMPUL NEB SCH ×2 (08:08→19:55)
[2019-04-30] MEDS: IPRATROPIUM BROMIDE 0.02% NEB 0.5 MG/2.5 ML AMPUL NEB SCH ×3 (08:08→23:56)
[2019-04-30] MEDS: LEVALBUTEROL HCL NEB 1.25 MG/3 ML AMPUL NEB SCH ×3 (08:08→23:56)
[2019-04-30 09:11] LABS: HEMOGLOBIN 9.6 g/dL (13.5-17.0); MEAN CORPUSCULAR HEMOGLOBIN 30.7 pg (27.0-33.4); MEAN CORPUSCULAR HGB CONC 33.1 g/dL (32.0-36.0); MEAN CORPUSCULAR VOLUME 93 fl (80-97); PLATELET COUNT 252 10^3/uL (150-450); RED BLOOD COUNT 3.14 10^6/uL (4.35-5.55); RED CELL DISTRIBUTION WIDTH 14.9 % (11.5-14.0); WHITE BLOOD COUNT 7.1 10^3/uL (4.0-10.5)
[2019-04-30] MEDS: CEFEPIME 1 GM/D5W RTU 1 GM/50 ML RTUPB IV SCH (09:20)
[2019-04-30 09:28] LABS: BLOOD UREA NITROGEN 55 mg/dL (7-20); CALCIUM 8.2 mg/dL (8.4-10.2); CHLORIDE 103 mmol/L (98-107); GLUCOSE 86 mg/dL (75-110); POTASSIUM 4.5 mmol/L (3.6-5.0); TRIGLYCERIDES 153 mg/dL (<150)
[2019-04-30 09:29] LABS: CHOLESTEROL 98.17 mg/dL (0-200)
[2019-04-30 09:30] LABS: ANION GAP 10 (5-19); CARBON DIOXIDE 26 mmol/L (22-30)
[2019-04-30 09:34] LABS: VLDL CHOLESTEROL 30.6 mg/dL (10-31)
[2019-04-30 09:41] LABS: DIRECT LDL 47 mg/dL (<100)
[2019-04-30 09:45] LABS: CREATINE KINASE MB 2.9 ng/mL (<4.55); TROPONIN I 0.065 ng/mL
[2019-04-30] MEDS: METOPROLOL SUCCINATE 50 MG TAB.SR.24H PO SCH (10:14)
[2019-04-30 10:53] LABS: ARTERIAL BLOOD BASE EXCESS -2.1 mmol/L; ARTERIAL BLOOD HCO3 25.6 mmol/L (20-24); ARTERIAL BLOOD O2 SATURATION 91.8 % (94-98); ARTERIAL BLOOD PCO2 59.8 mmHg (35-45); ARTERIAL BLOOD PH 7.25 (7.35-7.45); ARTERIAL BLOOD PO2 72.7 mmHg (80-100); ARTERIAL BLOOD TOTAL CO2 27.5 mmol/L (23-27)
[2019-04-30 11:13] LABS: ARTERIAL BLOOD FIO2 60%
[2019-04-30] MEDS: DOCUSATE SODIUM 100 MG CAPSULE PO SCH ×2 (12:01→17:14)
[2019-04-30] MEDS: LORAZEPAM INJ 2 MG/1 ML VIAL IV PRN (12:57)
[2019-04-30] MEDS: LOSARTAN POTASSIUM 50 MG TABLET PO SCH (14:15)
[2019-04-30 18:55] LABS: APPEARANCE,URINE CLEAR; BILIRUBIN,URINE NEGATIVE (NEGATIVE); COLOR,URINE STRAW; GLUCOSE, URINE NEGATIVE (NEGATIVE); KETONES,URINE NEGATIVE (NEGATIVE); LEUKOCYTE ESTERASE,URINE NEGATIVE (NEGATIVE); NITRITE,URINE NEGATIVE (NEGATIVE); PROTEIN,URINE NEGATIVE (NEGATIVE); URINE SPECIFIC GRAVITY 1.008; UROBILINOGEN,URINE NEGATIVE mg/dL (<2.0)
[2019-04-30] MEDS: ATORVASTATIN CALCIUM 40 MG TABLET PO SCH (21:32)
--- NOTE | 2019-04-30 21:52 | PDOC CONSULTATION ---
Consultation-Blank Consultation: CARDIOLOGY CONSULTATION by Dr. Simran negro on 04/30/2019. Patient seen at 7:30 AM. 60 minutes spent on this patient more than 50% of time spent in direct patient care. REASON FOR CONSULTATION: Heart failure. CONSULT REQUESTING PHYSICIAN: Dr. Esvin Hagan, [facility] hospitalist physician group. HISTORY PRESENT ILLNESS Patient is a 68-year-old male with known history of COPD, peripheral vascular disease, diabetes mellitus and chronic kidney disease admitted with symptoms of what seems to be angina equivalent. He was admitted with 1 day history of significant shortness of breath with minimal activity to rest shortness of breath, with orthopnea. He also has been having nonproductive cough. He denies any chest pain or discomfort. The patient recently was on seen in the office and due to the bilateral pleural effusions his Lasix was increased. His BUN and creatinine have worsened and from a stage III which is his baseline he is going to chronic kidney disease stage IV. Chest x-ray is consistent with probably bibasilar pneumonia with effusion versus right-sided he art failure causing effusions and atelectasis due to the effusions. The patient's chest x-ray does not show any pulmonary edema. The patient's echocardiogram in the recent past showed normal ejection fraction. It failed to show any significant pulmonary hypertension. The patient states his leg edema is much improved and is only trace leg edema. The only way to settle his history of heart failure is when the patient is able to lie down flat transfer him to ICU and place a Charlotte-Zaira catheter for right heart pressure measurements. This has been discussed with the patient and patient's . Also the effusions could be secondary to volume overload due to the patient's worsening renal function. Nephrology has been consulted. Noted in the past admission recently he had a high-resolution CT of the chest without contrast and it did not show any evidence of interstitial lung disease. He also in the past admission had a renal artery Doppler which showed no significant renal artery stenosis. Past Medical History Prior recent admision:The patient was admitted in February 2019 with respiratory failure and had bilateral pneumonias requiring chest tube placement. The patient improved with antibiotics. At that time he also had acute renal injury with a renal function improving. Of note the patient has chronic kidney disease stage III. He is also has a history of diabetes mellitus and also has a history of smoking for a long time which he quit a few months prior to the February admission. In the admission of the patient was intubated and and after some time showed improvement with antibiotics. He also developed atrial flutter which converted to sinus and hence the patient is on Eliquis. There is no TIA CVA symptoms. The patient subsequently was extubated and weaned off the oxygen to a low level and was transferred to [facility] as an inpatient rehab patient. The patient was discharged from the in patient [facility] facility on Tuesday which is 04/16/2019. The patient was doing well and stated that his leg edema is also getting better. The patient had no orthopnea or PND until the evening prior to his admission, the patient stated he initially took a nap and felt well and got up. Subsequently when he took a second nap and was trying to lie down in bed he had chest pressure and severe shortness of breath and the shortness of breath did improve with the patient sitting up. This sounds more like a PND equal and this occurred a few times. There is no palpitations or syncope. There is no symptoms suggestive recurrence of atrial flutter. Of note in the last admission he had had blood pressure spikes. But the patient states his blood pressure was within acceptable limits. Past Cardiac History.: Denies: Coronary Artery Disease, Myocardial Infarction, Hypertension Pulmonary Medical History: Reports: Chronic Obstructive Pulmonary Disease (COPD).? Interstitial lung disease Denies: Asthma, recently treated for bilateral pneumonia and respiratory failure. This required intubation. Neurological Medical History: Denies: Seizures Endocrine Medical History: Reports: Diabetes Mellitus Type 2 Musculoskeltal Medical History: Denies: Arthritis Hematology: Denies: Anemia VASCULAR: History of peripheral vascular disease. GENITOURINARY system: History of chronic kidney disease stage III. Social History Information Source: Patient, [facility] Records Lives with: Spouse/Significant other Smoking Status: Former Smoker. Quit about 4 months ago Frequency of Alcohol Use: None Hx Recreational Drug Use: No Drugs: None Hx Prescription Drug Abuse: No Advance Directive Resuscitation Status: Full Code. The patient's is his surrogate healthcare decision maker. Family History: COPD Medication/Allergy Home Medications: Atorvastatin Calcium [Lipitor 40 mg Tablet] 40 mg PO QHS 03/20/19 Fenofibrate,Micronized [Fenofibrate] 134 mg PO DAILY 03/20/19 Gabapentin [Neurontin 300 mg Capsule] 300 mg PO Q12 03/20/19 Glipizide [Glucotrol 5 mg Tablet] 5 mg PO BID 03/20/19 Metformin HCl [Glucophage 500 mg Tablet] 1,000 mg PO BID 03/20/19 Umeclidinium Brm/Vilanterol Tr [Anoro Ellipta 62.5-25 Mcg INH] 1 puff IH DAILY 03/20/19 Amlodipine Besylate [Norvasc 10 mg Tablet] 10 mg PO DAILY #30 tablet 04/09/19 Apixaban [Eliquis 2.5 mg Tablet] 2.5 mg PO BID #60 tablet 04/09/19 Docusate Sodium [Colace 100 mg Capsule] 100 mg PO BID capsule 04/09/19 Metoprolol Tartrate [Lopressor 50 mg Tablet] 50 mg NG Q12 #60 tablet 04/09/19 Polyethylene Glycol 3350 [Miralax Powder 17 gm/Packet] 17 gm PO DAILY powd.pack 04/09/19 Prednisone [Deltasone 20 mg Tablet] 20 mg PO ASDIR PRN #5 tablet 04/09/19 Allergies/Adverse Reactions: No Known Allergies Review of Systems Constitutional: PRESENT: as per HPI, fatigue, weakness, weight gain. ABSENT: fever(s) Eyes: ABSENT: visual disturbances Ears: ABSENT: hearing changes Cardiovascular: PRESENT: as per HPI. ABSENT: chest pain, dyspnea on exertion, edema, orthropnea, palpitations Respiratory: PRESENT: as per HPI Gastrointestinal: PRESENT: as per HPI Genitourinary: ABSENT: dysuria, hematuria Musculoskeletal: ABSENT: joint swelling Integumentary: ABSENT: rash, wounds Neurological: ABSENT: abnormal gait, abnormal speech, confusion, dizziness, focal weakness, syncope Psychiatric: ABSENT: anxiety, depression, homidical ideation, suicidal ideation Endocrine: ABSENT: cold intolerance, heat intolerance, polydipsia, polyuria Hematologic/Lymphatic: ABSENT: easy bleeding, easy bruising' Current Medications Acetaminophen (Tylenol 325 Mg Tablet) 650 mg PO Q4HP PRN PRN Reason: For headache, pain or fever Stop: 05/29/19 20:24 Al Hydrox/Mg Hydrox/Simethicone (Maalox Plus Susp 30 Udcup) 30 ml PO Q6HP PRN PRN Reason: HEARTBURN Stop: 05/29/19 20:15 Apixaban (Eliquis 2.5 Mg Tablet) 2.5 mg PO BID [facility] Stop: 05/30/19 09:59 Atorvastatin Calcium (Lipitor 40 Mg Tablet) 40 mg PO QHS [facility] Stop: 05/29/19 21:59 Last Admin: 04/30/19 21:32 Dose: 40 mg Documented by: Budesonide (Pulmicort Neb 0.5 Mg/2 Ml Ampul) 0.5 mg NEB RTBID [facility]YLER Stop: 05/30/19 07:59 Last Admin: 04/30/19 19:55 Dose: 0.5 mg Documented by: Chlorpromazine HCl (Thorazine Inj 25 Mg/1 Ml Ampule) 25 mg IV Q8HP PRN PRN Reason: ANXIETY/AGITATION Stop: 05/30/19 00:03 Dextrose (Dextrose Inj 50% Syringe (25 Gm/50 Ml)) 12.5 gm IV PRN PRN; Protocol PRN Reason: FOR BG 50-69 IN ALERT PATIENT Stop: 05/29/19 20:24 Dextrose (Dextrose Inj 50% Syringe (25 Gm/50 Ml)) 25 gm IV PRN PRN; Protocol PRN Reason: PER PROTOCOL Stop: 05/29/19 20:24 Docusate Sodium (Colace 100 Mg Capsule) 100 mg PO BID [facility] Stop: 05/30/19 09:59 Last Admin: 04/30/19 17:14 Dose: Not Given Documented by: Glucagon (Glucagen Inj 1 Mg Vial) 1 mg IM PRN PRN; Protocol PRN Reason: Evaluate for BG < 70 Stop: 05/29/19 20:24 Glucose (Glutose 40% Gel 15 Gm Tube) 15 gm PO PRN PRN; Protocol PRN Reason: FOR BG 50-69 IN ALERT PATIENT Stop: 05/29/19 20:24 Glucose (Glutose 40% Gel 15 Gm Tube) 30 gm PO PRN PRN; Protocol PRN Reason: FOR BG < 50 IN ALERT PATIENT Stop: 05/29/19 20:24 Hydralazine HCl (Apresoline Inj/Pf 20 Mg/1 Ml Sdv) 20 mg IV Q4HP PRN PRN Reason: Give For Sbp > 160 / Dbp > 100 Stop: 05/29/19 20:24 Cefepime HCl (Maxipime Rtu 1 Gm/D5w 50 Ml Premix Bag) 1 gm in 50 mls @ 100 mls/hr IV DAILY [facility] Stop: 05/06/19 09:59 Insulin Glargine (Lantus Insulin 100 Unit/1 Ml 10 Ml) 30 unit SUBCUT QHS [facility] Stop: 05/29/19 21:59 Last Admin: 04/30/19 21:33 Dose: 30 unit Documented by: Insulin Human Regular (Humulin R (Pyxis) Insulin 100 Unit/Ml 3ml) 0 - 15 unit SUBCUT ACHS [facility]; Protocol Stop: 05/29/19 20:24 Last Admin: 04/30/19 21:33 Dose: 5 unit Documented by: Ipratropium Lewis (Atrovent 0.02% Neb 0.5 Mg/2.5 Ml Ampul) 0.5 mg NEB RTQ8 [facility] Stop: 05/30/19 00:00 Last Admin: 04/30/19 15:53 Dose: 0.5 mg Documented by: Levalbuterol HCl (Xopenex Neb 0.63 Mg/3 Ml Ampul) 0.63 mg NEB RTQ2HP PRN PRN Reason: SHORTNESS OF BREATH Stop: 05/29/19 20:15 Levalbuterol HCl (Xopenex Neb 1.25 Mg/3 Ml Ampul) 1.25 mg NEB RTQ8 [facility] Stop: 05/30/19 00:00 Last Admin: 04/30/19 15:53 Dose: 1.25 mg Documented by: Lorazepam (Ativan Inj 2 Mg/1 Ml Vial) 1 mg IV Q4HP PRN PRN Reason: ANXIETY/AGITATION Stop: 05/07/19 00:03 Last Admin: 04/30/19 12:57 Dose: 1 mg Documented by: Losartan Potassium (Cozaar 50 Mg Tablet) 100 mg PO DAILY [facility] Stop: 05/30/19 09:59 Last Admin: 04/30/19 14:15 Dose: Not Given Documented by: Magnesium Hydroxide (Milk Of Magnesia 30 Ml Udcup) 30 ml PO HSP PRN PRN Reason: FOR CONSTIPATION Stop: 05/29/19 20:15 Metoprolol Succinate (Toprol Xl 50 Mg Tab.Sr) 50 mg PO Q12 [facility] Stop: 05/29/19 21:59 Last Admin: 04/30/19 10:14 Dose: Not Given Documented by: Morphine Sulfate (Morphine 10 Mg/Ml Inj) 2 mg IV Q1HP PRN PRN Reason: Acute Severe Dyspnea Stop: 05/06/19 20:24 Nitroglycerin (Nitrostat 0.4 Mg (1/150 Gr) Tabs 25/Bottle) 1 tab SL Q5MP PRN PRN Reason: FOR CHEST PAIN Stop: 05/29/19 20:24 Nitroglycerin (Nitrol 2% Ointment 1gm Packet) 1 gm TP Q6 [facility] Stop: 05/30/19 00:00 Last Admin: 04/30/19 17:20 Dose: 1 gm Documented by: Pantoprazole Sodium (Protonix [address] Tablet) 40 mg PO BID@0600,1700 [facility] Stop: 05/30/19 05:59 Last Admin: 04/30/19 17:20 Dose: 40 mg Documented by: Promethazine HCl (Phenergan Inj 25 Mg/1 Ml Vial) 12.5 mg IV Q4HP PRN PRN Reason: UNRESOLVED NAUSEA/VOMITING Stop: 05/30/19 00:04 Sodium Chloride (Saline Flush 2.5 Ml Monoject Prefil Syrin) 2.5 ml IV Q8 [facility] Stop: 05/29/19 21:59 Last Admin: 04/30/19 21:33 Dose: 2.5 ml Documented by: Temazepam (Restoril 15 Mg Capsule) 15 mg PO HSP PRN PRN Reason: SLEEP OR INSOMNIA Stop: 05/06/19 20:15 Discontinued Medications Aspirin (Aspirin 81 Mg Chewable Tablet) 324 mg PO NOW ONE Stop: 04/29/19 18:13 Last Admin: 04/29/19 18:30 Dose: 324 mg Documented by: Bumetanide (Bumex Inj/Pf 1 Mg/4 Ml Sdv) 1 mg IV Q4 [facility]ER Stop: 04/30/19 18:01 Last Admin: 04/30/19 17:20 Dose: 1 mg Documented by: Furosemide (Lasix Inj/Pf 20 Mg/2 Ml Sdv) 40 mg IV NOW ONE Stop: 04/29/19 16:32 Last Admin: 04/29/19 16:38 Dose: 40 mg Documented by: Cefepime HCl (Maxipime Rtu 1 Gm/D5w 50 Ml Premix Bag) 1 gm in 50 mls @ 100 mls/hr IV Q12 [facility] Stop: 05/06/19 21:59 Last Infusion: 04/30/19 09:52 Dose: Infused Documented by: Influenza Virus Vaccine Quadrival (Flulaval Quad 2018- Vac 0.5 Ml Syr) 0.5 ml IM .ONCE ONE Stop: 04/30/19 02:43 Ondansetron HCl (Zofran Inj/Pf 4 Mg/2 Ml Sdv) 4 mg IV Q4HP PRN PRN Reason: FOR NAUSEA/VOMITING Stop: 04/30/19 00:05 Piperacillin Sod/Tazobactam Sod (Zosyn Inj 3.375 Gm Vial) 3.375 gm IV IVBAG (ED) ONE Stop: 04/29/19 18:13 Last Admin: 04/29/19 18:30 Dose: 3.375 gm Documented by: Vancomycin HCl (Vancocin Inj 1000 Mg Vial) 1,000 mg IV NOW ONE Stop: 04/29/19 18:13 Last Admin: 04/29/19 19:06 Dose: 1,000 mg Documented by: Physical EXAMINATION: The patient is slightly overloaded weight. He appears to be chronically ill he is on BiPAP at present with no acute distress. Selected Entries 04/30/19 04/30/19 07:47 07:56 Temperature 97.4 F Temperature Oral Source Pulse Rate 59 L Respiratory 19 Rate Respiratory Normal Effort Non-Labored Blood Pressure 139/53 H Blood Pressure 81 Mean BP Location Right Arm BP Position Supine O2 Sat by Pulse 97 Oximetry Oxygen Delivery Bipap Method Percent of 40 Oxygen Head: Is atraumatic normocephalic. EYES: Pupils are equal round regular reactive light accommodation. Extraocular movements are normal. There is no conjunctival pallor. There is no scleral icterus. EARS: Tympanic membranes are intact. External auditory canals are clear. NOSE: There is no deviated nasal septum. There is no inflammation nasal mucous membrane. MOUTH: There is no bleeding from the gums. There is no ulcers in the mouth. THROAT: There is no redness of the oropharynx. There is no exudates. SKIN: There is no petechia or ecchymosis. There is no skin rashes or skin lesions. NECK: There is no definite JVD present. Carotids are equal. There is no bruits. There is no lymphadenopathy. There is no accessory muscle respiration use. Trachea central LUNGS: Shows diminished air entry prolonged expiration. There is absent breath sounds and dullness in both bases. On palpation there is no chest wall tenderness. HEART: S1-S2 is heard there is no S3 gallop. There is no S4 gallop. Systolic murmur left sternal border and the apex there is no rub. ABDOMEN: Soft. Nontender. There is no hepatospleno megaly. Bowel bowel sounds are well heard. EXTREMITIES: Femorals are slightly diminished. There is no femoral bruits. Leg pulses are slightly diminished. There is trace bilateral pedal edema. There is no DVT or cellulitis. There is no cyanosis or clubbing. [employer]: The patient is conscious awake alert oriented x3 with no focal deficits. PSYCHIATRIC: The patient appears to be slightly depressed but his judgment intact are still intact. Labs- Entire Visit 04/29/19 04/29/19 04/29/19 16:00 16:00 16:00 WBC 7.9 RBC 3.34 L Hgb 10.4 L Hct 31.7 L MCV 95 D MCH 31.3 MCHC 33.0 RDW 15.3 H Plt Count 299 Lymph % (Auto) 28.9 [place] % (Auto) 8.8 Eos % (Auto) 0.7 Baso % (Auto) 0.7 Absolute Neuts (auto) 4.8 Absolute Lymphs (auto) 2.3 Absolute Monos (auto) 0.7 Absolute Eos (auto) 0.1 Absolute Basos (auto) 0.1 Seg Neutrophils % 60.9 Carbonic Acid HCO3/H2CO3 Ratio ABG pH ABG pCO2 ABG pO2 ABG HCO3 ABG Total CO2 ABG O2 Saturation ABG Base Excess FiO2 Sodium 139.7 Potassium 5.0 Chloride 102 Carbon Dioxide 27 Anion Gap 11 BUN 49 H Creatinine 2.85 H Est GFR ( Amer) 27 L Est GFR (MDRD) Non-Af 22 L Glucose 141 H POC Glucose Hemoglobin A1c % Lactic Acid Calcium 8.6 Magnesium Total Bilirubin 0.3 Direct Bilirubin 0.2 Neonat Total Bilirubin Not Reportable Neonat Direct Bilirubin Not Reportable Neonat Indirect Bili Not Reportable AST 80 H ALT 76 Alkaline Phosphatase 99 Creatine Kinase 415 H CK-MB (CK-2) 3.68 Troponin I 0.064 NT-Pro-B Natriuret Pep 78860 H Total Protein 6.0 L Albumin 3.4 L Triglycerides Cholesterol LDL Cholesterol Direct VLDL Cholesterol HDL Cholesterol Urine Color Urine Appearance Urine pH Ur Specific [place] Urine Protein Urine Glucose (UA) Urine Ketones Urine Blood Urine Nitrite Urine Bilirubin Urine Urobilinogen Ur Leukocyte Esterase Urine WBC (Auto) Urine RBC (Auto) U Hyaline Cast (Auto) Urine Bacteria (Auto) Squamous Epi Cells Auto Urine Mucus (Auto) Urine Ascorbic Acid 04/29/19 04/29/19 04/29/19 16:28 16:28 21:14 WBC RBC Hgb Hct MCV MCH MCHC RDW Plt Count Lymph % (Auto) [place] % (Auto) Eos % (Auto) Baso % (Auto) Absolute Neuts (auto) Absolute Lymphs (auto) Absolute Monos (auto) Absolute Eos (auto) Absolute Basos (auto) Seg Neutrophils % Carbonic Acid HCO3/H2CO3 Ratio ABG pH ABG pCO2 ABG pO2 ABG HCO3 ABG Total CO2 ABG O2 Saturation ABG Base Excess FiO2 Sodium Potassium Chloride Carbon Dioxide Anion Gap BUN Creatinine Est GFR ( Amer) Est GFR (MDRD) Non-Af Glucose POC Glucose 134 H Hemoglobin A1c % Lactic Acid Cancelled 2.7 H Calcium Magnesium Total Bilirubin Direct Bilirubin Neonat Total Bilirubin Neonat Direct Bilirubin Neonat Indirect Bili AST ALT Alkaline Phosphatase Creatine Kinase CK-MB (CK-2) Troponin I NT-Pro-B Natriuret Pep Total Protein Albumin Triglycerides Cholesterol LDL Cholesterol Direct VLDL Cholesterol HDL Cholesterol Urine Color Urine Appearance Urine pH Ur Specific [place] Urine Protein Urine Glucose (UA) Urine Ketones Urine Blood Urine Nitrite Urine Bilirubin Urine Urobilinogen Ur Leukocyte Esterase Urine WBC (Auto) Urine RBC (Auto) U Hyaline Cast (Auto) Urine Bacteria (Auto) Squamous Epi Cells Auto Urine Mucus (Auto) Urine Ascorbic Acid 04/29/19 04/29/19 04/29/19 21:32 21:32 21:32 WBC RBC Hgb Hct MCV MCH MCHC RDW Plt Count Lymph % (Auto) [place] % (Auto) Eos % (Auto) Baso % (Auto) Absolute Neuts (auto) Absolute Lymphs (auto) Absolute Monos (auto) Absolute Eos (auto) Absolute Basos (auto) Seg Neutrophils % Carbonic Acid HCO3/H2CO3 Ratio ABG pH ABG pCO2 ABG pO2 ABG HCO3 ABG Total CO2 ABG O2 Saturation ABG Base Excess FiO2 Sodium Potassium Chloride Carbon Dioxide Anion Gap BUN Creatinine Est GFR ( Amer) Est GFR (MDRD) Non-Af Glucose POC Glucose Hemoglobin A1c % Lactic Acid 1.6 Calcium Magnesium Total Bilirubin Direct Bilirubin Neonat Total Bilirubin Neonat Direct Bilirubin Neonat Indirect Bili AST ALT Alkaline Phosphatase Creatine Kinase 265 H CK-MB (CK-2) 3.00 Troponin I 0.088 NT-Pro-B Natriuret Pep Total Protein Albumin Triglycerides Cholesterol LDL Cholesterol Direct VLDL Cholesterol HDL Cholesterol Urine Color Urine Appearance Urine pH Ur Specific [place] Urine Protein Urine Glucose (UA) Urine Ketones Urine Blood Urine Nitrite Urine Bilirubin Urine Urobilinogen Ur Leukocyte Esterase Urine WBC (Auto) Urine RBC (Auto) U Hyaline Cast (Auto) Urine Bacteria (Auto) Squamous Epi Cells Auto Urine Mucus (Auto) Urine Ascorbic Acid 04/29/19 04/30/19 04/30/19 21:50 02:57 03:02 WBC RBC Hgb Hct MCV MCH MCHC RDW Plt Count Lymph % (Auto) [place] % (Auto) Eos % (Auto) Baso % (Auto) Absolute Neuts (auto) Absolute Lymphs (auto) Absolute Monos (auto) Absolute Eos (auto) Absolute Basos (auto) Seg Neutrophils % Carbonic Acid 2.04 H HCO3/H2CO3 Ratio 14:1 ABG pH 7.25 L ABG pCO2 67.8 H ABG pO2 44.5 L ABG HCO3 28.9 H ABG Total CO2 30.9 H ABG O2 Saturation 71.4 L ABG Base Excess 0.5 FiO2 40% Sodium Potassium Chloride Carbon Dioxide Anion Gap BUN Creatinine Est GFR ( Amer) Est GFR (MDRD) Non-Af Glucose POC Glucose Hemoglobin A1c % Lactic Acid Calcium Magnesium Total Bilirubin Direct Bilirubin Neonat Total Bilirubin Neonat Direct Bilirubin Neonat Indirect Bili AST ALT Alkaline Phosphatase Creatine Kinase 207 H CK-MB (CK-2) 2.54 Troponin I 0.084 NT-Pro-B Natriuret Pep Total Protein Albumin Triglycerides Cholesterol LDL Cholesterol Direct VLDL Cholesterol HDL Cholesterol Urine Color Urine Appearance Urine pH Ur Specific [place] Urine Protein Urine Glucose (UA) Urine Ketones Urine Blood Urine Nitrite Urine Bilirubin Urine Urobilinogen Ur Leukocyte Esterase Urine WBC (Auto) Urine RBC (Auto) U Hyaline Cast (Auto) Urine Bacteria (Auto) Squamous Epi Cells Auto Urine Mucus (Auto) Urine Ascorbic Acid 04/30/19 04/30/19 04/30/19 06:25 08:00 08:25 WBC 7.1 RBC 3.14 L Hgb 9.6 L Hct 29.0 L MCV 93 MCH 30.7 MCHC 33.1 RDW 14.9 H Plt Count 252 Lymph % (Auto) [place] % (Auto) Eos % (Auto) Baso % (Auto) Absolute Neuts (auto) Absolute Lymphs (auto) Absolute Monos (auto) Absolute Eos (auto) Absolute Basos (auto) Seg Neutrophils % Carbonic Acid 1.99 H HCO3/H2CO3 Ratio 13:1 ABG pH 7.24 L ABG pCO2 66.1 H ABG pO2 68.7 L ABG HCO3 27.5 H ABG Total CO2 29.5 H ABG O2 Saturation 90.0 L ABG Base Excess -0.8 FiO2 100% Sodium Potassium Chloride Carbon Dioxide Anion Gap BUN Creatinine Est GFR ( Amer) Est GFR (MDRD) Non-Af Glucose POC Glucose 120 H Hemoglobin A1c % Lactic Acid Calcium Magnesium Total Bilirubin Direct Bilirubin Neonat Total Bilirubin Neonat Direct Bilirubin Neonat Indirect Bili AST ALT Alkaline Phosphatase Creatine Kinase CK-MB (CK-2) Troponin I NT-Pro-B Natriuret Pep Total Protein Albumin Triglycerides Cholesterol LDL Cholesterol Direct VLDL Cholesterol HDL Cholesterol Urine Color Urine Appearance Urine pH Ur Specific [place] Urine Protein Urine Glucose (UA) Urine Ketones Urine Blood Urine Nitrite Urine Bilirubin Urine Urobilinogen Ur Leukocyte Esterase Urine WBC (Auto) Urine RBC (Auto) U Hyaline Cast (Auto) Urine Bacteria (Auto) Squamous Epi Cells Auto Urine Mucus (Auto) Urine Ascorbic Acid 04/30/19 04/30/19 04/30/19 08:25 08:25 08:25 WBC RBC Hgb Hct MCV MCH MCHC RDW Plt Count Lymph % (Auto) [place] % (Auto) Eos % (Auto) Baso % (Auto) Absolute Neuts (auto) Absolute Lymphs (auto) Absolute Monos (auto) Absolute Eos (auto) Absolute Basos (auto) Seg Neutrophils % Carbonic Acid HCO3/H2CO3 Ratio ABG pH ABG pCO2 ABG pO2 ABG HCO3 ABG Total CO2 ABG O2 Saturation ABG Base Excess FiO2 Sodium 138.9 Potassium 4.5 Chloride 103 Carbon Dioxide 26 Anion Gap 10 BUN 55 H Creatinine 3.54 H Est GFR ( Amer) 21 L Est GFR (MDRD) Non-Af 17 L Glucose 86 POC Glucose Hemoglobin A1c % 8.0 H Lactic Acid Calcium 8.2 L Magnesium 1.7 Total Bilirubin Direct Bilirubin Neonat Total Bilirubin Neonat Direct Bilirubin Neonat Indirect Bili AST ALT Alkaline Phosphatase Creatine Kinase 171 H CK-MB (CK-2) Troponin I NT-Pro-B Natriuret Pep Total Protein Albumin Triglycerides 153 H Cholesterol 98.17 LDL Cholesterol Direct 47 VLDL Cholesterol 30.6 HDL Cholesterol 18 L Urine Color Urine Appearance Urine pH Ur Specific [place] Urine Protein Urine Glucose (UA) Urine Ketones Urine Blood Urine Nitrite Urine Bilirubin Urine Urobilinogen Ur Leukocyte Esterase Urine WBC (Auto) Urine RBC (Auto) U Hyaline Cast (Auto) Urine Bacteria (Auto) Squamous Epi Cells Auto Urine Mucus (Auto) Urine Ascorbic Acid 04/30/19 04/30/19 04/30/19 08:25 10:30 11:41 WBC RBC Hgb Hct MCV MCH MCHC RDW Plt Count Lymph % (Auto) [place] % (Auto) Eos % (Auto) Baso % (Auto) Absolute Neuts (auto) Absolute Lymphs (auto) Absolute Monos (auto) Absolute Eos (auto) Absolute Basos (auto) Seg Neutrophils % Carbonic Acid 1.80 H HCO3/H2CO3 Ratio 14:1 ABG pH 7.25 L ABG pCO2 59.8 H ABG pO2 72.7 L ABG HCO3 25.6 H ABG Total CO2 27.5 H ABG O2 Saturation 91.8 L ABG Base Excess -2.1 FiO2 60% Sodium Potassium Chloride Carbon Dioxide Anion Gap BUN Creatinine Est GFR ( Amer) Est GFR (MDRD) Non-Af Glucose POC Glucose 101 Hemoglobin A1c % Lactic Acid Calcium Magnesium Total Bilirubin Direct Bilirubin Neonat Total Bilirubin Neonat Direct Bilirubin Neonat Indirect Bili AST ALT Alkaline Phosphatase Creatine Kinase CK-MB (CK-2) 2.90 Troponin I 0.065 NT-Pro-B Natriuret Pep Total Protein Albumin Triglycerides Cholesterol LDL Cholesterol Direct VLDL Cholesterol HDL Cholesterol Urine Color Urine Appearance Urine pH Ur Specific [place] Urine Protein Urine Glucose (UA) Urine Ketones Urine Blood Urine Nitrite Urine Bilirubin Urine Urobilinogen Ur Leukocyte Esterase Urine WBC (Auto) Urine RBC (Auto) U Hyaline Cast (Auto) Urine Bacteria (Auto) Squamous Epi Cells Auto Urine Mucus (Auto) Urine Ascorbic Acid 04/30/19 04/30/19 04/30/19 15:26 18:44 21:18 WBC RBC Hgb Hct MCV MCH MCHC RDW Plt Count Lymph % (Auto) [place] % (Auto) Eos % (Auto) Baso % (Auto) Absolute Neuts (auto) Absolute Lymphs (auto) Absolute Monos (auto) Absolute Eos (auto) Absolute Basos (auto) Seg Neutrophils % Carbonic Acid HCO3/H2CO3 Ratio ABG pH ABG pCO2 ABG pO2 ABG HCO3 ABG Total CO2 ABG O2 Saturation ABG Base Excess FiO2 Sodium Potassium Chloride Carbon Dioxide Anion Gap BUN Creatinine Est GFR ( Amer) Est GFR (MDRD) Non-Af Glucose POC Glucose 149 H 232 H Hemoglobin A1c % Lactic Acid Calcium Magnesium Total Bilirubin Direct Bilirubin Neonat Total Bilirubin Neonat Direct Bilirubin Neonat Indirect Bili AST ALT Alkaline Phosphatase Creatine Kinase CK-MB (CK-2) Troponin I NT-Pro-B Natriuret Pep Total Protein Albumin Triglycerides Cholesterol LDL Cholesterol Direct VLDL Cholesterol HDL Cholesterol Urine Color STRAW Urine Appearance CLEAR Urine pH 5.0 Ur Specific [place] 1.008 Urine Protein NEGATIVE Urine Glucose (UA) NEGATIVE Urine Ketones NEGATIVE Urine Blood SMALL H Urine Nitrite NEGATIVE Urine Bilirubin NEGATIVE Urine Urobilinogen NEGATIVE Ur Leukocyte Esterase NEGATIVE Urine WBC (Auto) 2 Urine RBC (Auto) 1 U Hyaline Cast (Auto) 5 Urine Bacteria (Auto) TRACE Squamous Epi Cells Auto <1 Urine Mucus (Auto) RARE Urine Ascorbic Acid NEGATIVE Chest X-Ray 04/29/19 16:31 IMPRESSION: Moderate bilateral pleural effusions and perihilar/bibasilar consolidations suggestive of pulmonary edema and atelectasis. Superimposed infectious process cannot be excluded. My interpretation is bibasilar pneumonia with bilateral pleural effusions versus bilateral pleural effusions with atelectasis. No evidence of left heart failure. EKG: SINUS RHYTHM [LVOLF] . LOW VOLTAGE IN FRONTAL LEADS [T1LA] . NONSPECIFIC T ABNORMALITIES, LATERAL LEADS 1. Shortness of breath with orthopnea with bilateral pleural effusions with bilateral pneumonia versus secondary to right heart failure causing pleural effusions versus volume overload secondary to congestive heart failure. As mentioned earlier recommend [place]-Zaira catheter to settle this issue of the etiology of the patient's symptoms 2. Acute on chronic kidney disease: Would hold off on the diuretics. Nephrology consulted. This is one more reason for placement of a [place]-Zaira catheter. 3. Chronic obstructive pulmonary disease: At present cannot exclude acute exacerbation 4. Paroxysmal atrial flutter: Patient sinus rhythm. Continue his current beta- blockers and Eliquis 5. Diabetes mellitus: Continue antidiabetic regimen and asked to check serially. 6. Peripheral vascular disease: Asymptomatic. Medications reviewed. Management plan and medical regimen and placement of a [place]-Zaira catheter option discussed with the attending provider on the case. Medical decision making is of high complexity. Will await nephrology consult. 60 minutes spent on this patient more than 50% of the time spent direct patient care. Will follow
[2019-05-01] MEDS: METOPROLOL SUCCINATE 50 MG TAB.SR.24H PO SCH ×3 (00:06→21:25)
[2019-05-01] MEDS: NITROGLYCERIN 2% OINTMENT 1 GM PACKET TP SCH ×5 (00:43→23:20)
[2019-05-01 05:41] LABS: HEMATOCRIT 29.2 % (37.9-51.0); HEMOGLOBIN 9.8 g/dL (13.5-17.0); MEAN CORPUSCULAR HEMOGLOBIN 31.4 pg (27.0-33.4); MEAN CORPUSCULAR HGB CONC 33.6 g/dL (32.0-36.0); MEAN CORPUSCULAR VOLUME 94 fl (80-97); PLATELET COUNT 289 10^3/uL (150-450); RED BLOOD COUNT 3.12 10^6/uL (4.35-5.55); RED CELL DISTRIBUTION WIDTH 14.5 % (11.5-14.0); WHITE BLOOD COUNT 8.5 10^3/uL (4.0-10.5)
[2019-05-01] MEDS: PANTOPRAZOLE SODIUM 40 MG TABLET.DR PO SCH ×2 (05:44→17:28)
[2019-05-01 05:46] LABS: INTERNATIONAL RATION (INR) 1.25; PROTHROMBIN TIME 15.8 SEC (11.4-15.4)
[2019-05-01 05:47] LABS: PARTIAL THROMBOPLASTIN TIME 33.2 SEC (23.5-35.8)
[2019-05-01 06:19] LABS: ANION GAP 11 (5-19); BLOOD UREA NITROGEN 58 mg/dL (7-20); CALCIUM 8.2 mg/dL (8.4-10.2); CARBON DIOXIDE 27 mmol/L (22-30); CHLORIDE 101 mmol/L (98-107); GLUCOSE 176 mg/dL (75-110); POTASSIUM 4.6 mmol/L (3.6-5.0)
[2019-05-01] MEDS: BUDESONIDE NEB 0.5 MG/2 ML AMPUL NEB SCH ×2 (08:22→20:19)
[2019-05-01] MEDS: IPRATROPIUM BROMIDE 0.02% NEB 0.5 MG/2.5 ML AMPUL NEB SCH ×2 (08:22→16:40)
[2019-05-01] MEDS: LEVALBUTEROL HCL NEB 1.25 MG/3 ML AMPUL NEB SCH ×2 (08:22→16:40)
[2019-05-01] MEDS: INSULIN REG, HUMAN 100 UNIT/ML 3 ML VIAL (PYX) SUBCUT SCH ×4 (09:06→21:24)
[2019-05-01] MEDS: DOCUSATE SODIUM 100 MG CAPSULE PO SCH ×2 (09:10→17:28)
[2019-05-01] MEDS: CEFEPIME 1 GM/D5W RTU 1 GM/50 ML RTUPB IV SCH (09:13)
[2019-05-01] MEDS: LOSARTAN POTASSIUM 50 MG TABLET PO SCH (09:13)
--- NOTE | 2019-05-01 12:41 | RADIOLOGY REPORT (SQ) ---
EXAM DESCRIPTION: CHEST SINGLE VIEW COMPLETED DATE/TIME: 05/01/2019 12:25 pm REASON FOR STUDY: S/P RT THORACENTESIS COMPARISON: 04/29/2019 EXAM PARAMETERS: NUMBER OF VIEWS: One view. TECHNIQUE: Single frontal radiographic view of the chest acquired. RADIATION DOSE: NA LIMITATIONS: None. FINDINGS: LUNGS AND PLEURA: Status post right thoracentesis. No evidence of pneumothorax. Stable small left pleural effusion and left lower lung consolidation. . Patchy areas of airspace disease i n the mid lower lung zones bilaterally. MEDIASTINUM AND HILAR STRUCTURES: Stable appearance. HEART AND VASCULAR STRUCTURES: Stable appearance. BONES: No acute findings. HARDWARE: None in the chest. OTHER: No other significant finding. IMPRESSION: 1. Status post right thoracentesis. No evidence of a pneumothorax. 2. Small left pleural effusion and left lower lung consolidation. Patchy areas of airspace disease in the mid and lower lung zones bilaterally. TECHNICAL DOCUMENTATION: JOB ID: [id number] [employer]- All Rights Reserved Reading location - IP/workstation name: [email or web address]
--- NOTE | 2019-05-01 12:57 | PDOC CONSULTATION ---
Consultation Consult Date: 05/01/19 Provider Consulted: Dorothy SANTO Consult reason:: VIDYA on CKD History of Present Illness Admission Date/PCP: 04/29/19 19:43 REYNA PENN MD History of Present Illness: JOSE GARCIA is a 68 year old male with a past medical history of diabetic mellitus, hypertension, COPD and CKD with a base creatinine of around 2-3 was admitted with history of acute onset of paroxysmal nocturnal dyspnea a few days ago. Patient is unaware of pre-existing kidney disease or cardiac disease from his primary care. He denies any history of chronic shortness of breath. He also experienced centralized chest pain with no radiation which lasted for a few hours. It was nonpleuritic and there was no precipitating or relieving factors for the chest pain. After appropriate evaluations including imaging studies he was diagnosed with possible pneumonia with some effusions with the possibility of underlying congestive heart failure and was admitted. The patient presently feels some better but still dyspneic that he has to be on continuous oxygen or else he desaturates. No complaints of any persisting chest pain. No history of any coughing spells fever or chills. He is on a high sodium diet. No history of any NSAIDs. Labs and medications were reviewed. Recent echocardiogram done was reviewed which showed normal ejection fraction with difficulty to study right heart pressures. He does have sleep symptoms suggestive of sleep apnea however. Recent renal Dopplers had showed no significant renal artery stenosis.Review of his renal numbers shows that his creatinine was around 2-3 from his first admission in February. We do not have any other renal numbers from earlier this year. February of this year was admitted with bibasilar pneumonia with seen pneumonic effusions and had to have thoracentesis with improvement. He was then again admitted in March with acute shortness of breath. He also has a history of atrial flutter for which she is on Eliquis. His labs and medications were reviewed. Discussions were done with his treating nurse as well as with Dr. Sanchez. He is in the process of having a [place]-Zaira done today. P Past Medical History Cardiac Medical History: Reports: Atrial Fibrillation, Coronary Artery Disease, Hyperlipidemia, Hypertension-primary, Myocardial Infarction Denies: DVT, Pulmonary Embolism Pulmonary Medical History: Reports: Chronic Obstructive Pulmonary Disease (COPD), Intubation, Respiratory Failure Denies: Asthma, Bronchitis, Pneumonia EENT Medical History: Denies: Cataracts, Ears - Hearing aids Neurological Medical History: Denies: Hemorrhagic CVA, Ischemic CVA, Seizures Endocrine Medical History: Reports: Diabetes Mellitus Type 2 Denies: Diabetes Mellitus Type 1, Hyperthyroidism, Hypothyroidism Complications of Diabetes: Reports: None Renal/ Medical History: Reports: Chronic Kidney Disease Stage III Denies: Nephrolithiasis Malignancy Medical History: Reports: None GI Medical History: Denies: Cirrhosis, Crohn's Disease, Hepatitis, Ulcerative Colitis - 2 admissions Musculoskeltal Medical History: Denies: Arthritis, Gout Skin Medical History: Denies: Eczema, Psoriasis Psychiatric Medical History: Reports: Tobacco Dependency Denies: Alcohol Dependency, Depression, Substance Abuse Traumatic Medical History: Reports: None Infectious Medical History: Denies: None Past Surgical History Past Surgical History: Reports: Other - Bilateral chest tubes on recent hospitalization Social History Lives with: Spouse/Significant other Smoking Status: Former Smoker Electronic Cigarette use?: No Frequency of Alcohol Use: None Hx Recreational Drug Use: No Drugs: None Hx Prescription Drug Abuse: No - Advance Directive Resuscitation Status: Full Code Family History Parental Family History Reviewed: Yes - Negative for ESRD Children Family History Reviewed: No Sibling(s) Family History Reviewed.: No Medication/Allergy Home Medications: Amlodipine Besylate [Norvasc 10 mg Tablet] 10 mg PO DAILY 04/19/19 Apixaban [Eliquis 2.5 mg Tablet] 2.5 mg PO BID 04/19/19 Atorvastatin Calcium [Lipitor 40 mg Tablet] 40 mg PO QHS 04/19/19 Gabapentin [Neurontin 300 mg Capsule] 300 mg PO BID 04/19/19 Insulin Glargine,Hum.rec.anlog [Lantus Insulin 100 Unit/1 ml 10 ml] 15 unit SUBCUT DAILY 04/19/19 Metformin HCl 500 mg PO BID 04/19/19 Metoprolol Tartrate [Lopressor 50 mg Tablet] 50 mg PO Q12 04/19/19 Furosemide [Lasix 40 mg Tablet] 40 mg PO QAM #15 tablet 04/20/19 Nitroglycerin [Nitrostat 0.4 mg (1/150 Gr) Tabs 25/Bottle] 1 tab SL Q5MP PRN #25 tab.subl 04/20/19 Isosorbide Mononitrate [Imdur 60 mg Tablet.er] 60 mg PO DAILY 04/30/19 Allergies/Adverse Reactions: No Known Allergies Allergy (Verified 04/19/19 00:42) Review of Systems Constitutional: PRESENT: fatigue, weakness. ABSENT: anorexia, chills, night sweats Ears: PRESENT: hearing changes Nose, Mouth, and Throat: ABSENT: mouth pain, sore throat Cardiovascular: PRESENT: dyspnea on exertion, orthropnea. ABSENT: chest pain Respiratory: PRESENT: dyspnea. ABSENT: cough, hemoptysis Gastrointestinal: ABSENT: abdominal pain, bloating, coffee ground emesis, constipation, diarrhea, dysphagia, heartburn, hematemesis, vomiting Musculoskeletal: ABSENT: deformity, joint swelling Integumentary: ABSENT: erythema, pruritus, rash Neurological: ABSENT: abnormal movements, abnormal speech, confusion, convulsions, focal weakness Hematologic/Lymphatic: ABSENT: easy bruising, lymphadenopathy Physical Exam Vital Signs: Temp Pulse Resp BP Pulse Ox 97.3 F 81 22 H 146/60 H 93 05/01/19 08:02 05/01/19 08:22 05/01/19 08:22 05/01/19 08:02 05/01/19 08:22 Intake & Output 04/30/19 05/01/19 05/02/19 06:59 06:59 06:59 Intake Total 150 890 410 Output Total 350 Balance 150 540 410 Weight 95.3 kg 94.2 kg General appearance: PRESENT: mild distress Eye exam: PRESENT: EOMI, PERRLA. ABSENT: scleral icterus Ear exam: PRESENT: normal external ear exam Mouth exam: PRESENT: moist, neck supple Neck exam: ABSENT: lymphadenopathy, meningismus, tenderness, thyromegaly, tracheal deviation Respiratory exam: PRESENT: clear to auscultation zachariah, decreased breath sounds. ABSENT: crackles Cardiovascular exam: PRESENT: +S1, +S2. ABSENT: rubs GI/Abdominal exam: PRESENT: normal bowel sounds, soft. ABSENT: organomegaly, tenderness Extremities exam: PRESENT: +2 edema Neurological exam: PRESENT: alert, awake, oriented to person, oriented to place, oriented to time Psychiatric exam: PRESENT: appropriate affect Skin exam: ABSENT: cyanosis, erythema, mottled, rash Results Laboratory Results: 05/01/19 04:32 05/01/19 04:32 04/30/19 05/01/19 05/01/19 18:44 04:32 04:32 WBC 8.5 RBC 3.12 L Hgb 9.8 L Hct 29.2 L MCV 94 MCH 31.4 MCHC 33.6 RDW 14.5 H Plt Count 289 Sodium 138.9 Potassium 4.6 Chloride 101 Carbon Dioxide 27 Anion Gap 11 BUN 58 H Creatinine 4.37 H Est GFR ( Amer) 16 L Glucose 176 H Calcium 8.2 L Magnesium 1.6 Urine Color STRAW Urine Appearance CLEAR Urine pH 5.0 Ur Specific [place] 1.008 Urine Protein NEGATIVE Urine Glucose (UA) NEGATIVE Urine Ketones NEGATIVE Urine Blood SMALL H Urine Nitrite NEGATIVE Ur Leukocyte Esterase NEGATIVE Urine WBC (Auto) 2 Urine RBC (Auto) 1 04/29/19 04/29/19 04/29/19 16:00 16:00 21:32 Creatine Kinase 415 H 265 H CK-MB (CK-2) 3.68 Troponin I 0.064 NT-Pro-B Natriuret Pep 43573 H 04/29/19 04/30/19 04/30/19 21:32 02:57 03:02 Creatine Kinase 207 H CK-MB (CK-2) 3.00 2.54 Troponin I 0.088 0.084 NT-Pro-B Natriuret Pep 04/30/19 04/30/19 08:25 08:25 Creatine Kinase 171 H CK-MB (CK-2) 2.90 Troponin I 0.065 NT-Pro-B Natriuret Pep Impressions: Chest X-Ray 04/29/19 16:31 IMPRESSION: Moderate bilateral pleural effusions and perihilar/bibasilar consolidations suggestive of pulmonary edema and atelectasis. Superimposed infectious process cannot be excluded. Assessment & Plan - Diagnosis (1) Acute exacerbation of congestive heart failure Plan: Clinically he presents with paroxysmal nocturnal dyspnea and other features suggestive of most likely acute exacerbation of underlying congestive heart failure. He has symptoms indicative of undiagnosed sleep apnea and therefore pos sibility of right heart disease/cor pulmonale is rather high on my differential.Besides that he is a diabetic with hypertension bringing the possibility of occult cardiovascular disease as well. Other possibilities includes pulmonary embolism which is a bit less likely given the fact that the patient was on anticoagulation for his A. fib/flutter.Pneumonia with parapneumonic effusions presentation is quite unlikely in the given clinical setting.Patient is got signs of fluid overload and will initiate him on IV diuretics. Explained to patient and his . (2) Acute hypoxemic respiratory failure Plan: As mentioned earlier. Patient is also got signs of fluid overload and will start him on diuretics. (3) Acute kidney injury Is this a current diagnosis for this admission?: Yes Plan: Patient has got existing CKD stage III/IV. Apparently we would have to procure some labs from his primary care from earlier this year if any was done to see if any evidence of pre existing CKD or did it start during his initial admission in February which was the first time he was admitted in some time. Get other labs and imaging studies to support if there is any evidences to indicate that he has underlying CKD. However he definitely has some worsening renal functions which is nonoliguric at the moment. Advised the need for tight blood sugar control. Advised on watching his diet and avoidance of nephrotoxic drugs. See how he responds to IV diuretics. Await further studies including [place]-Zaira. (4) Atrial flutter Plan: Rate controlled. See recommendations of Dr. Sanchez/cardiology. (5) Bilateral pleural effusion Plan: Need thoracentesis. (6) CKD (chronic kidney disease) stage 3, GFR 30-59 ml/min Is this a current diagnosis for this admission?: Yes Plan: Base creatinine 2-3. Reviewed renal ultrasound and Dopplers from February of this year which was unremarkable. Get previous studies from earlier this year from primary care to compare. (7) Diabetes mellitus type 2 in nonobese Is this a current diagnosis for this admission?: Yes Plan: Advised tight control for obvious reasons. (8) Anemia Qualifiers: Anemia type: iron deficiency Plan: Will initiate work-up.
--- NOTE | 2019-05-01 14:56 | RADIOLOGY REPORT (SQ) ---
EXAM DESCRIPTION: U/S THORACENTESIS WITH IMAGING COMPLETED DATE/TIME: 05/01/2019 1:15 pm REASON FOR STUDY: pleural effusion COMPARISON: 03/30/2019 LIMITATIONS: None. PROCEDURE: Procedure, risks, benefit, and alternative explained to patient who then gave written con sent. The posterior left chest wall was marked using ultrasound guidance. A time-out was called for correct marking verification. Chest prepped and draped using sterile technique. Local anesthesia ac hieved using 10 ml of 1% lidocaine injection. A 6fr Safe-T- Centesis set was introduced into the lef t pleural space. Fluid was aspirated. The catheter was removed and the entry site was covered with sterile bandage. No immediate complications noted. Images acquired during the procedure were stored on PACS. FINDINGS: ENTRY SITE: posterior left chest. FLUID VOLUME: 1000 cc FLUID ANALYSIS: Straw-colored OTHER: Fluid sent to the lab for testing. IMPRESSION: SUCCESSFUL THORACENTESIS USING ULTRASOUND GUIDANCE. COMMENT: Patient medication list reviewed: Yes- Quality ID# [id number]:Eligible professional attests to doc umenting in the medical record they obtained, updated, or reviewed the patient's current medications. TECHNICAL DOCUMENTATION: JOB ID: [id number] [employer]- All Rights Reserved Reading location - IP/workstation name: [email or web address]
[2019-05-01] MEDS: LORAZEPAM INJ 2 MG/1 ML VIAL IV PRN ×2 (15:25→21:25)
--- NOTE | 2019-05-01 16:12 | Progress Note ---
Provider Note Provider Note: Pt brought to the ICU and after obtaining consent, pt prepped and draped sterilely. A 8.5 Fr cordis placed in RIJ after several attempts. After securing this a 7.5 FR PA catheter was floated and a cardiac profile will be done after a CXR. Pt gfiven 1 mg ativan after consent and tolerated this well.
--- NOTE | 2019-05-01 16:19 | Progress Note ---
Provider Note Provider Note: CO 6.2 CI 2.9 PCWP 22, SVR 901CVP 12, PA 55/20 Full profie in chart. Starting milrinone
--- NOTE | 2019-05-01 16:42 | CRITICAL CARE ADMISSION REPORT ---
HPI Date:: 05/01/19 Time:: 15:30 Reason for ICU Reason:: Placement of PA cathter and treatment depending on results HPI: This patient is a 68 yo man who was recently discharged to rehab after an admission for a psuedomanas PNA, intubation complicated by COPD. He was sent to rehab and discharged to home 3 days prior to admission. He returned to the ED in CHF. He claimed to have gone 3 days without medication. The CHF was treated but the patient had an effusion requiring thoracentesis. He has worsening kidney function despite a normal echocardiagram. He was rought to the ICU where a cordis and PA catheter were placed showing a low CI at 2.9, wedge 22, CVP 12 and PA pressures 55/20. We will start milrinone to give support to his rt ventricle. History obtained from:: Patient, , records and hospitalist. - Diagnosis/Plan (1) Right heart failure due to pulmonary hypertension Is this a current diagnosis for this admission?: Yes Plan: With the above described numbers milrinone will be started and Dr. Torres will perform an adenosine ST Tuesday. (2) CKD (chronic kidney disease) stage 3, GFR 30-59 ml/min Is this a current diagnosis for this admission?: Yes Plan: Cr now 4.3 and GFR 16. Currently stage iv but trying to improve this acute situation. No nephrtoxic medications. (3) COPD (chronic obstructive pulmonary disease) Qualifiers: COPD type: unspecified COPD Qualified Code(s): J44.9 - Chronic obstructive pulmonary disease, unspecified Is this a current diagnosis for this admission?: Yes Plan: Currently stable and inactive. (4) Type 2 diabetes mellitus Qualifiers: Diabetes mellitus long term care social worker insulin use: without care home use Diabetes mellitus complication status: without complication Qualified Code(s): E11.9 - Type 2 diabetes mellitus without complications Is this a current diagnosis for this admission?: Yes Plan: Controlled Past Medical History Cardiac Medical History: Reports: Atrial Fibrillation, Congestive Heart Failure, Coronary Artery Disease, Myocardial Infarction, Hyperlipidema Denies: DVT, Hypertension, Pulmonary Embolism Pulmonary Medical History: Reports: Chronic Obstructive Pulmonary Disease (COPD), Intubation, Respiratory Failure Denies: Asthma, Bronchitis, Pneumonia EENT Medical History: Denies: Cataracts, Ears - Hearing aids Neurological Medical History: Denies: Hemorrhagic CVA, Ischemic CVA, Seizures Endocrine Medical History: Reports: Diabetes Mellitus Type 2 Denies: Diabetes Mellitus Type 1, Hyperthyroidism, Hypothyroidism Renal/ Medical History: Reports: Chronic Kidney Disease Denies: Nephrolithiasis Malignancy Medical History: Reports: None GI Medical History: Denies: Cirrhosis, Crohn's Disease, Hepatitis, Ulcerative Colitis - 2 admissions Musculoskeltal Medical History: Denies: Arthritis, Gout Skin Medical History: Denies: Eczema, Psoriasis Psychiatric Medical History: Reports: Tobacco Dependency Denies: Alcohol Dependency, Depression, Substance Abuse Traumatic Medical History: Reports: None Hematology: Denies: Anemia, Bleeding Tendencies Infectious Medical History: Denies: None Past Surgical History Past Surgical History: Reports: Other - Bilateral chest tubes on recent hospitalization Social/Family History - Social History Lives with: Spouse/Significant other Smoking Status: Former Smoker Frequency of Alcohol Use: None Hx Recreational Drug Use: No Drugs: None Hx Prescription Drug Abuse: No - Medication/Allergies Home Medications: Amlodipine Besylate [Norvasc 10 mg Tablet] 10 mg PO DAILY 04/19/19 Apixaban [Eliquis 2.5 mg Tablet] 2.5 mg PO BID 04/19/19 Atorvastatin Calcium [Lipitor 40 mg Tablet] 40 mg PO QHS 04/19/19 Gabapentin [Neurontin 300 mg Capsule] 300 mg PO BID 04/19/19 Insulin Glargine,Hum.rec.anlog [Lantus Insulin 100 Unit/1 ml 10 ml] 15 unit SUBCUT DAILY 04/19/19 Metformin HCl 500 mg PO BID 04/19/19 Metoprolol Tartrate [Lopressor 50 mg Tablet] 50 mg PO Q12 04/19/19 Furosemide [Lasix 40 mg Tablet] 40 mg PO QAM #15 tablet 04/20/19 Nitroglycerin [Nitrostat 0.4 mg (1/150 Gr) Tabs 25/Bottle] 1 tab SL Q5MP PRN #25 tab.subl 04/20/19 Isosorbide Mononitrate [Imdur 60 mg Tablet.er] 60 mg PO DAILY 04/30/19 Allergies/Adverse Reactions: No Known Allergies Allergy (Verified 04/19/19 00:42) Review of Systems All systems: reviewed and no additional remarkable complaints except as stated Constitutional: ABSENT: chills, fever(s), headache(s), weight gain, weight loss Eyes: ABSENT: visual disturbances Ears: ABSENT: hearing changes Cardiovascular: PRESENT: dyspnea on exertion Respiratory: PRESENT: dyspnea Gastrointestinal: ABSENT: abdominal pain, constipation, diarrhea, hematemesis, hematochezia, nausea, vomiting Musculoskeletal: ABSENT: joint swelling Integumentary: ABSENT: rash, wounds Endocrine: PRESENT: polyphagia - Claustrophobia Physical Exam Vital Signs: Temp Pulse Resp BP Pulse Ox 97.6 F 74 16 111/67 100 05/01/19 13:45 05/01/19 14:00 05/01/19 13:45 05/01/19 13:45 05/01/19 13:45 Intake & Output 04/30/19 05/01/19 05/02/19 06:59 06:59 06:59 Intake Total 150 890 410 Output Total 350 Balance 150 540 410 Weight 95.3 kg 94.2 kg Weight/Height Weight 94.2 kg Height 6 ft General appearance: PRESENT: no acute distress, well-developed, well-nourished Head exam: PRESENT: atraumatic, normocephalic Eye exam: PRESENT: conjunctiva pink, EOMI, PERRLA. ABSENT: scleral icterus Ear exam: PRESENT: normal external ear exam Mouth exam: PRESENT: moist, tongue midline Neck exam: ABSENT: carotid bruit, JVD, lymphadenopathy, thyromegaly Respiratory exam: PRESENT: clear to auscultation zachariah, decreased breath sounds, unlabored Cardiovascular exam: PRESENT: RRR. ABSENT: diastolic murmur, rubs, systolic murmur Pulses: PRESENT: normal dorsalis pedis pul Vascular exam: PRESENT: normal capillary refill GI/Abdominal exam: PRESENT: normal bowel sounds, soft. ABSENT: distended, guarding, mass, organolmegaly, rebound, tenderness Rectal exam: PRESENT: deferred Extremities exam: PRESENT: pedal edema Musculoskeletal exam: PRESENT: ambulatory, full ROM Neurological exam: PRESENT: alert, awake, oriented to person, oriented to place, oriented to time, oriented to situation, CN II-XII grossly intact. ABSENT: motor sensory deficit Psychiatric exam: PRESENT: anxious Skin exam: PRESENT: normal color Tubes/Lines: PRESENT: Other - Cordis and PA catheter. Laboratory/Radiographs Laboratory Results: 05/01/19 04:32 05/01/19 04:32 11/04/19 11/05/19 11/05/19 18:44 04:32 04:32 WBC 8.5 RBC 3.12 L Hgb 9.8 L Hct 29.2 L MCV 94 MCH 31.4 MCHC 33.6 RDW 14.5 H Plt Count 289 Sodium 138.9 Potassium 4.6 Chloride 101 Carbon Dioxide 27 Anion Gap 11 BUN 58 H Creatinine 4.37 H Est GFR ( Amer) 16 L Glucose 176 H Calcium 8.2 L Magnesium 1.6 Urine Color STRAW Urine Appearance CLEAR Urine pH 5.0 Ur Specific [place] 1.008 Urine Protein NEGATIVE Urine Glucose (UA) NEGATIVE Urine Ketones NEGATIVE Urine Blood SMALL H Urine Nitrite NEGATIVE Ur Leukocyte Esterase NEGATIVE Urine WBC (Auto) 2 Urine RBC (Auto) 1 04/29/19 04/29/19 04/29/19 16:00 16:00 21:32 Creatine Kinase 415 H 265 H CK-MB (CK-2) 3.68 Troponin I 0.064 NT-Pro-B Natriuret Pep 36580 H 04/29/19 04/30/19 04/30/19 21:32 02:57 03:02 Creatine Kinase 207 H CK-MB (CK-2) 3.00 2.54 Troponin I 0.088 0.084 NT-Pro-B Natriuret Pep 04/30/19 04/30/19 08:25 08:25 Creatine Kinase 171 H CK-MB (CK-2) 2.90 Troponin I 0.065 NT-Pro-B Natriuret Pep Impressions: Thoracentesis Ultrasound 05/01/19 00:00 IMPRESSION: SUCCESSFUL THORACENTESIS USING ULTRASOUND GUIDANCE. All labs, radiographs, diagnostic studies and EKGs were personally reviewed: Yes In addition, reports of radiographic and diagnostic studies were read: Yes Critical Time Critical Time (minutes): 60 -: The care of a critically ill patient is dynamic. This note represents a static moment in the admission process. orders and treatments may be given simulataneously and urgentl, and time is not inbound sales representative of the treatment process. This patient requires Critical Care secondary to life threating organ or limb dysfunction. Without the need for Critical Care services, the patient is at risk for increasid mortality and morbidity.
[2019-05-01] MEDS: APIXABAN 2.5 MG TABLET PO SCH (17:28)
[2019-05-01] MEDS: FUROSEMIDE INJ/PF 20 MG/2 ML SDV IV SCH ×2 (17:28→21:23)
--- NOTE | 2019-05-01 17:29 | RADIOLOGY REPORT (SQ) ---
EXAM DESCRIPTION: CHEST SINGLE VIEW COMPLETED DATE/TIME: 05/01/2019 4:24 pm REASON FOR STUDY: Placement of PA Catheter COMPARISON: Same day radiograph EXAM PARAMETERS: NUMBER OF VIEWS: One view. TECHNIQUE: Single frontal radiographic view of the chest acquired. RADIATION DOSE: NA LIMITATIONS: None. FINDINGS: LUNGS AND PLEURA: Patchy bilateral interstitial and alveolar opacities, not significantly changed. Small left effusion. No pneumothorax. MEDIASTINUM AND HILAR STRUCTURES: Stable. HEART AND VASCULAR STRUCTURES: Enlarged, stable. BONES: No acute findings. HARDWARE: Right internal jugular [place]-Zaira catheter tip overlies right main pulmonary artery. OTHER: No other significant finding. IMPRESSION: Interval placement of a right internal jugular [place]-Zaira catheter with tip overlying rig ht main pulmonary artery. Stable enlarged cardiac silhouette and bilateral interstitial and alveolar opacities. TECHNICAL DOCUMENTATION: JOB ID: [id number] [employer]- All Rights Reserved Reading location - IP/workstation name: [email or web address]
[2019-05-01] MEDS: MILRINONE LACTATE/D5W 20 MG/100 ML RTUINJ IV PRN (17:30)
--- NOTE | 2019-05-01 17:37 | RADIOLOGY REPORT (SQ) ---
EXAM DESCRIPTION: CHEST SINGLE VIEW COMPLETED DATE/TIME: 05/01/2019 2:58 pm REASON FOR STUDY: S/P RT THORACENTESIS- 2 HOUR FILM COMPARISON: Same day radiograph EXAM PARAMETERS: NUMBER OF VIEWS: One view. TECHNIQUE: Single frontal radiographic view of the chest acquired. RADIATION DOSE: NA LIMITATIONS: None. FINDINGS: LUNGS AND PLEURA: Stable basilar interstitial alveolar opacities, left greater than right. Trace effusions bilaterally. No pneumothorax. MEDIASTINUM AND HILAR STRUCTURES: Stable. HEART AND VASCULAR STRUCTURES: Stable. BONES: No acute findings. HARDWARE: None in the chest. OTHER: No other significant finding. IMPRESSION: No pneumothorax post right thoracentesis. Stable bibasilar interstitial and alveolar opacities from prior. TECHNICAL DOCUMENTATION: JOB ID: [id number] [employer]- All Rights Reserved Reading location - IP/workstation name: [email or web address]
--- NOTE | 2019-05-01 18:22 | PDOC PROGRESS REPORT ---
Subjective Progress Note for:: 05/01/19 Subjective:: The patient is a 68-year-old male with a past medical history of atrial fibrillation, CHF, CAD, [place], hyperlipidemia, COPD with recent admission requiring prolonged intubation due to acute respiratory failure, DM 2, CKD 3, tobacco and alcohol dependence who was admitted 04/29/2019 for acute respiratory failure with hypoxia. Patient was seen on morning rounds with his present. He was found sitting up to the edge of the bed on nonrebreather at 15 L/min due to patient's continued noncompliance with recommended BiPAP. He is scheduled for a thoracentesis today as he has moderate bilateral pleural effusions. Cardiology and nephrology have been consulted; cardiology requesting assistance w/ arranging for transfer to ICU for placement of [place]-Zaira to evaluate for Rt side heart failure. Discussed w/ Dr. Wick, boat wrapper; can accommodate patient today following thoracentesis. Patient reports continued dyspnea, PND, nonproductive cough, and anxiety r/t BiPAP. He denies fever, chills, chest pain, palpitations, abd pain, nausea and vomiting. Briefly reviewed placement of central line and [place]-Zaira with patient and family; all questions answered. No concerns per nursing. Reason For Visit: ACUTE PULMONARY EDEMA, ACUTE RESPIRATORY FAILURE Physical Exam Vital Signs: Temp Pulse Resp BP Pulse Ox 97.6 F 65 20 131/81 H 98 05/01/19 13:45 05/01/19 16:41 05/01/19 17:00 05/01/19 16:16 05/01/19 17:00 Intake & Output 04/30/19 05/01/19 05/02/19 06:59 06:59 06:59 Intake Total 150 890 410 Output Total 350 Balance 150 540 410 Weight 95.3 kg 94.2 kg General appearance: PRESENT: no acute distress, cooperative, well-developed, well-nourished - overweight Head exam: PRESENT: atraumatic, normocephalic Eye exam: PRESENT: conjunctiva pink, EOMI, PERRLA. ABSENT: scleral icterus Ear exam: PRESENT: normal external ear exam Mouth exam: PRESENT: moist, tongue midline Neck exam: ABSENT: carotid bruit, JVD, lymphadenopathy, thyromegaly Respiratory exam: PRESENT: crackles, decreased breath sounds - bibasilar; L>R, prolonged expiratory phas, symmetrical, tachypnea, other - Supplemental oxygen. ABSENT: rales, rhonchi, wheezes Cardiovascular exam: PRESENT: RRR, +S1, +S2. ABSENT: diastolic murmur, rubs, systolic murmur Pulses: PRESENT: normal dorsalis pedis pul Vascular exam: PRESENT: normal capillary refill GI/Abdominal exam: PRESENT: normal bowel sounds, soft. ABSENT: distended, guarding, mass, organolmegaly, rebound, tenderness Rectal exam: PRESENT: deferred Extremities exam: PRESENT: full ROM. ABSENT: calf tenderness, clubbing, pedal edema Musculoskeletal exam: PRESENT: ambulatory Neurological exam: PRESENT: alert, awake, oriented to person, oriented to place, oriented to time, oriented to situation, CN II-XII grossly intact. ABSENT: motor sensory deficit Psychiatric exam: PRESENT: appropriate affect, normal mood. ABSENT: homicidal ideation, suicidal ideation Skin exam: PRESENT: dry, intact, warm. ABSENT: cyanosis, rash Results Laboratory Results: 05/01/19 04:32 05/01/19 04:32 04/30/19 05/01/19 05/01/19 18:44 04:32 04:32 WBC 8.5 RBC 3.12 L Hgb 9.8 L Hct 29.2 L MCV 94 MCH 31.4 MCHC 33.6 RDW 14.5 H Plt Count 289 Sodium 138.9 Potassium 4.6 Chloride 101 Carbon Dioxide 27 Anion Gap 11 BUN 58 H Creatinine 4.37 H Est GFR ( Amer) 16 L Glucose 176 H Calcium 8.2 L Magnesium 1.6 Urine Color STRAW Urine Appearance CLEAR Urine pH 5.0 Ur Specific [place] 1.008 Urine Protein NEGATIVE Urine Glucose (UA) NEGATIVE Urine Ketones NEGATIVE Urine Blood SMALL H Urine Nitrite NEGATIVE Ur Leukocyte Esterase NEGATIVE Urine WBC (Auto) 2 Urine RBC (Auto) 1 04/29/19 04/29/19 04/29/19 16:00 16:00 21:32 Creatine Kinase 415 H 265 H CK-MB (CK-2) 3.68 Troponin I 0.064 NT-Pro-B Natriuret Pep 16650 H 04/29/19 04/30/19 04/30/19 21:32 02:57 03:02 Creatine Kinase 207 H CK-MB (CK-2) 3.00 2.54 Troponin I 0.088 0.084 NT-Pro-B Natriuret Pep 04/30/19 04/30/19 08:25 08:25 Creatine Kinase 171 H CK-MB (CK-2) 2.90 Troponin I 0.065 NT-Pro-B Natriuret Pep Impressions: Thoracentesis Ultrasound 05/01/19 00:00 IMPRESSION: SUCCESSFUL THORACENTESIS USING ULTRASOUND GUIDANCE. Chest X-Ray 05/01/19 15:56 IMPRESSION: Interval placement of a right internal jugular [place]-Zaira catheter with tip overlying right main pulmonary artery. Stable enlarged cardiac silhouette and bilateral interstitial and alveolar opacities. Assessment and Plan - Diagnosis (1) Acute exacerbation of congestive heart failure Qualifiers: Heart failure type: right-sided Qualified Code(s): I50.813 - Acute on chronic right heart failure Is this a current diagnosis for this admission?: Yes Plan: Cardiology services consulted. Patient to transition to the boat wrapper service this afternoon following thoracentesis for placement of [place]-Zaira catheter to further evaluate right- sided heart failure. Further evaluation and management per Dr. Torres's expertise. (2) Acute on chronic renal failure Qualifiers: Chronic kidney disease stage: stage 4 (severe) Is this a current diagnosis for this admission?: Yes Plan: Likely prerenal secondary to CHF exacerbation resulting in poor cardiac output. Nephrology is consulted; appreciate Dr. Espinal's assistance. We will avoid nephrotoxic medications as able; Diuretics per Dr. Espinal. Continue daily chemistries. (3) Acute pulmonary edema with congestive heart failure Is this a current diagnosis for this admission?: Yes Plan: Secondary to #1 and 2. Evaluation and management as above. Thoracentesis today with 1 L removed. Fluid glucose, amylase, and cultures are pending. (4) Acute respiratory failure with hypoxia Is this a current diagnosis for this admission?: Yes Plan: Multifactorial secondary to CHF exacerbation, pleural effusions, and underlying COPD. Evaluation and management as above. Continue supplemental oxygen and BiPAP support as needed. Transfer to the boat wrapper service today. (5) COPD (chronic obstructive pulmonary disease) Qualifiers: COPD type: unspecified COPD Qualified Code(s): J44.9 - Chronic obstructive pulmonary disease, unspecified Is this a current diagnosis for this admission?: Yes Plan: Stable and without exacerbation at this time. No indications for steroid or antibiotic therapy at this time. Continue scheduled DuoNeb treatments. Supplemental oxygen and BiPAP support as needed. (6) Diabetes Qualifiers: Diabetes mellitus type: type 2 Diabetes mellitus termite control representative insulin use: unspecified termite control representative insulin use status Chronic kidney disease stage: stage 3 (moderate) Is this a current diagnosis for this admission?: Yes Plan: Consistent carb/cardiac diet. Continue Lantus 30 units nightly. Accu-Cheks before meals and at bedtime with sliding scale insulin. Hypoglycemia protocol in place. (7) Hypertension Qualifiers: Hypertension type: essential hypertension Qualified Code(s): I10 - Essential (primary) hypertension Is this a current diagnosis for this admission?: Yes Plan: Overall acceptable blood pressures. Both nephrology and cardiology services are consulted. Patient continues on home dose metoprolol, losartan. Diuretics per nephrology's expertise. Cardiac diet. - Plan Summary Summary: Patient is transferred to the ICU service for placement of central line and [place]-Zaira catheter. Discussed with Dr. Wick and Dr. Sanchez; likely will remain in ICU for 24 hours of observation and then be downgraded back to IMCU if remains clinically stable. - Time Time Spent with patient: 35 or more minutes Medications reviewed and adjusted accordingly: Yes
[2019-05-01] MEDS: ATORVASTATIN CALCIUM 40 MG TABLET PO SCH (21:25)
--- NOTE | 2019-05-01 21:53 | Progress Note ---
Provider Note Provider Note: Cardiology, progress note by Dr. Simran Sanchez on 05/01/2019. SUBJECTIVE: The patient feels much less short of breath and is able to lie flat after his right pleural effusion was drained for almost a liter of fluid. The patient denies any chest pain or discomfort. There is no recurrence of atrial flutter. The patient continues to need BiPAP. The patient is able to lie down flat and hence the patient will be transferred to ICU and the internal audit senior manager has placed a [place]-Zaira catheter. This shows a high right ventricle systolic pressure of 62 mmHg and a wedge pressure of 22. Hence after discussions with the internal audit senior manager plans to start the patient on renal dosed milrinone. There is no ventricular arrhythmias seen. The patient's renal function is worse. PHYSICAL EXAMINATION: The patient appears to be well-built but appears to be chronically ill. Selected Entries 05/01/19 05/01/19 05/01/19 18:00 19:13 19:14 Heart Rate ( 69 77 Monitors) Respiratory 20 Rate Blood Pressure 142/65 H Blood Pressure 151/73 H [Right Upper Arm] Blood Pressure 90 Mean Blood Pressure 99 Mean [Right Upper Arm] Blood Pressure Supine Position [Right Upper Arm] O2 Sat by Pulse 92 94 Oximetry Oxygen Delivery Bi-pap Method ( includes room air) Pulmonary 62 Arterial Occlusion Pressure- Systolic Pulmonary 25 Arterial Occlusion Pressure- Diastolic Pulmonary 39 Arterial Occlusion Pressure- Mean The wedge mean is 22 Central Venous 14 Pressure- Mean Head: Is atraumatic normocephalic. EYES: Pupils are equal round regular reactive light accommodation. Extraocular movements are normal. There is no conjunctival pallor. There is no scleral icterus. EARS: Tympanic membranes are intact. External auditory canals are clear. NOSE: There is no deviated nasal septum. There is no inflammation nasal mucous membrane. MOUTH: There is no bleeding from the gums. There is no ulcers in the mouth. THROAT: There is no redness of the oropharynx. There is no exudates. SKIN: There is no petechia or ecchymosis. There is no skin rashes or skin lesions. NECK: There is no definite JVD present. Carotids are equal. There is no bruits. There is no lymphadenopathy. There is no accessory muscle respiration use. Trachea central LUNGS: Shows diminished air entry prolonged expiration. There is absent breath sounds and dullness in both bases. On palpation there is no chest wall tenderness. HEART: S1-S2 is heard there is no S3 gallop. There is no S4 gallop. Systolic murmur left sternal border and the apex there is no rub. ABDOMEN: Soft. Nontender. There is no hepatospleno megaly. Bowel bowel sounds are well heard. EXTREMITIES: Femorals are slightly diminished. There is no femoral bruits. Leg pulses are slightly diminished. There is trace bilateral pedal edema. There is no DVT or cellulitis. There is no cyanosis or clubbing. RANGE AID: The patient is conscious awake alert oriented x3 with no focal deficits. PSYCHIATRIC: The patient appears to be slightly depressed but his judgment intact are still intact. Labs- All tests 24 hr 04/30/19 05/01/19 05/01/19 22:29 04:32 04:32 WBC 8.5 RBC 3.12 L Hgb 9.8 L Hct 29.2 L MCV 94 MCH 31.4 MCHC 33.6 RDW 14.5 H Plt Count 289 PT INR APTT Sodium 138.9 Potassium 4.6 Chloride 101 Carbon Dioxide 27 Anion Gap 11 BUN 58 H Creatinine 4.37 H Est GFR ( Amer) 16 L Est GFR (MDRD) Non-Af 14 L Glucose 176 H POC Glucose 235 H Calcium 8.2 L Magnesium 1.6 05/01/19 05/01/19 05/01/19 04:32 08:05 17:13 WBC RBC Hgb Hct MCV MCH MCHC RDW Plt Count PT 15.8 H INR 1.25 APTT 33.2 Sodium Potassium Chloride Carbon Dioxide Anion Gap BUN Creatinine Est GFR ( Amer) Est GFR (MDRD) Non-Af Glucose POC Glucose 165 H 207 H Calcium Magnesium 05/01/19 21:01 WBC RBC Hgb Hct MCV MCH MCHC RDW Plt Count PT INR APTT Sodium Potassium Chloride Carbon Dioxide Anion Gap BUN Creatinine Est GFR ( Amer) Est GFR (MDRD) Non-Af Glucose POC Glucose 184 H Calcium Magnesium Chest X-Ray 04/29/19 16:31 IMPRESSION: Moderate bilateral pleural effusions and perihilar/bibasilar consolidations suggestive of pulmonary edema and atelectasis. Superimposed infectious process cannot be excluded. Chest X-Ray 05/01/19 00:00 IMPRESSION: 1. Status post right thoracentesis. No evidence of a pneumothorax. 2. Small left pleural effusion and left lower lung consolidation. Patchy areas of airspace disease in the mid and lower lung zones bilaterally. Thoracentesis Ultrasound 05/01/19 00:00 IMPRESSION: SUCCESSFUL THORACENTESIS USING ULTRASOUND GUIDANCE. Chest X-Ray 05/01/19 14:00 IMPRESSION: No pneumothorax post right thoracentesis. Stable bibasilar interstitial and alveolar opacities from prior. Chest X-Ray 05/01/19 15:56 IMPRESSION: Interval placement of a right internal jugular [place]-Zaira catheter with tip overlying right main pulmonary artery. Stable enlarged cardiac silhouette and bilateral interstitial and alveolar opacities. IMPRESSION/RECOMMENDATION: 1. Shortness of breath with orthopnea with bilateral pleural effusions with bilateral pneumonia versus secondary to right heart failure causing pleural effusions, [place]-Zaira catheter has been placed by the internal audit senior manager.. This shows severe pulmonary hypertension with right with systolic pressure of 62. Also the patient's which is elevated at 22. We will start the patient on milrinone as discussed with the internal audit senior manager. 2. Acute on chronic kidney disease: Would hold off on the diuretics. Nephrology consulted. This is one more reason for placement of a [place]-Zaira catheter. 3. Chronic obstructive pulmonary disease: At present cannot exclude acute exacerbation 4. Paroxysmal atrial flutter: Patient sinus rhythm. Continue his current beta- blockers and Eliquis will be restarted. The Eliquis was stopped for patient's thoracentesis. 5. Diabetes mellitus: Continue antidiabetic regimen and asked to check serially. 6. Peripheral vascular disease: Asymptomatic. Medications reviewed. Management plan and medical regimen discussed with internal audit senior manager. Discussed the patient's case with the patient and patient's . Medical decision making is of high complexity. 40 minutes spent on this patient more than 50% of time spent in direct patient care. Will follow.
[2019-05-01] MEDS: INSULIN GLARGINE,HUM.REC.ANLOG 1,000 UNIT/10 ML VIAL SUBCUT SCH (23:33)
[2019-05-02] MEDS: IPRATROPIUM BROMIDE 0.02% NEB 0.5 MG/2.5 ML AMPUL NEB SCH ×3 (00:08→16:10)
[2019-05-02] MEDS: LEVALBUTEROL HCL NEB 1.25 MG/3 ML AMPUL NEB SCH ×3 (00:08→16:10)
[2019-05-02] MEDS: LORAZEPAM INJ 2 MG/1 ML VIAL IV PRN ×3 (01:26→13:05)
[2019-05-02] MEDS: MILRINONE LACTATE/D5W 20 MG/100 ML RTUINJ IV PRN ×2 (03:00→15:29)
[2019-05-02 03:54] LABS: ABSOLUTE RETICS # 0.096 10^6/uL (0.028-0.122); HEMOGLOBIN 8.5 g/dL (13.5-17.0); MEAN CORPUSCULAR HEMOGLOBIN 31.2 pg (27.0-33.4); MEAN CORPUSCULAR HGB CONC 33.8 g/dL (32.0-36.0); MEAN CORPUSCULAR VOLUME 92 fl (80-97); PLATELET COUNT 258 10^3/uL (150-450); RED BLOOD COUNT 2.71 10^6/uL (4.35-5.55); RED CELL DISTRIBUTION WIDTH 14.7 % (11.5-14.0); RETICULOCYTE COUNT (AUTO) 3.55 % (0.66-2.85); WHITE BLOOD COUNT 5.7 10^3/uL (4.0-10.5)
[2019-05-02 04:19] LABS: ANION GAP 10 (5-19); BLOOD UREA NITROGEN 60 mg/dL (7-20); CALCIUM 8.1 mg/dL (8.4-10.2); CARBON DIOXIDE 27 mmol/L (22-30); CHLORIDE 104 mmol/L (98-107); GLUCOSE 105 mg/dL (75-110)
[2019-05-02] MEDS ORDERED: CHLORPROMAZINE HCL INJ 25 MG/1 ML AMPULE ONE (04:49)
[2019-05-02 04:57] LABS: IRON(TIBC) < 10.1 ug/dL (49-181)
[2019-05-02] MEDS: NITROGLYCERIN 2% OINTMENT 1 GM PACKET TP SCH ×2 (05:01→12:38)
[2019-05-02] MEDS: PANTOPRAZOLE SODIUM 40 MG TABLET.DR PO SCH (05:02)
[2019-05-02] MEDS: FUROSEMIDE INJ/PF 20 MG/2 ML SDV IV SCH ×3 (05:02→21:17)
[2019-05-02 05:26] LABS: FOLATE 6.03 ng/mL (>2.76)
[2019-05-02] MEDS: BUDESONIDE NEB 0.5 MG/2 ML AMPUL NEB SCH ×2 (07:42→19:47)
--- NOTE | 2019-05-02 08:06 | PDOC PROGRESS REPORT ---
Subjective Progress Note for:: 05/02/19 Subjective:: Currently resting comfortably. Has been sleepless and having episodes of delerium. Reason For Visit: ACUTE PULMONARY EDEMA, ACUTE RESPIRATORY FAILURE Physical Exam Vital Signs: Temp Pulse Resp BP Pulse Ox 97.3 F 79 20 145/54 H 93 05/02/19 06:00 05/02/19 00:10 05/02/19 04:38 05/02/19 04:15 05/02/19 04:43 Intake & Output 05/01/19 05/02/19 05/03/19 06:59 06:59 06:59 Intake Total 890 485 Output Total 350 1175 Balance 540 -690 Weight 94.2 kg 92.5 kg General appearance: PRESENT: no acute distress Head exam: PRESENT: atraumatic, normocephalic Eye exam: PRESENT: conjunctiva pink, EOMI, PERRLA. ABSENT: scleral icterus Ear exam: PRESENT: normal external ear exam Mouth exam: PRESENT: moist, tongue midline Additional comments: Mouth breathing. Additional comments: RIJ PA catheter with no bleeding Respiratory exam: PRESENT: clear to auscultation zachariah, decreased breath sounds, unlabored Pulses: PRESENT: normal dorsalis pedis pul, +2 pedal pulses bilateral Vascular exam: PRESENT: normal capillary refill GI/Abdominal exam: PRESENT: normal bowel sounds, soft. ABSENT: distended, guarding, mass, organolmegaly, rebound, tenderness Rectal exam: PRESENT: deferred Musculoskeletal exam: PRESENT: full ROM, normal inspection Neurological exam: PRESENT: altered, CN II-XII grossly intact Psychiatric exam: PRESENT: agitated, anxious Skin exam: PRESENT: pallor Results Laboratory Results: 05/02/19 03:41 05/02/19 03:41 05/02/19 05/02/19 05/02/19 03:41 03:41 03:41 WBC 5.7 RBC 2.71 L Hgb 8.5 L Hct 25.0 L MCV 92 MCH 31.2 MCHC 33.8 RDW 14.7 H Plt Count 258 Retic Count (auto) 3.55 H Sodium 140.7 Potassium 4.0 Chloride 104 Carbon Dioxide 27 Anion Gap 10 BUN 60 H Creatinine 4.25 H Est GFR ( Amer) 17 L Glucose 105 Calcium 8.1 L Phosphorus 5.0 H Magnesium 1.6 Iron < 10.1 L TIBC 163 L Ferritin 233.00 Vitamin B12 302.0 Folate 6.03 TSH PTH Intact 143.8 H 05/02/19 03:41 WBC RBC Hgb Hct MCV MCH MCHC RDW Plt Count Retic Count (auto) Sodium Potassium Chloride Carbon Dioxide Anion Gap BUN Creatinine Est GFR ( Amer) Glucose Calcium Phosphorus Magnesium Iron TIBC Ferritin Vitamin B12 Folate TSH 2.02 PTH Intact 04/29/19 04/29/19 04/29/19 16:00 16:00 21:32 Creatine Kinase 415 H 265 H CK-MB (CK-2) 3.68 Troponin I 0.064 NT-Pro-B Natriuret Pep 80305 H 04/29/19 04/30/19 04/30/19 21:32 02:57 03:02 Creatine Kinase 207 H CK-MB (CK-2) 3.00 2.54 Troponin I 0.088 0.084 NT-Pro-B Natriuret Pep 04/30/19 04/30/19 08:25 08:25 Creatine Kinase 171 H CK-MB (CK-2) 2.90 Troponin I 0.065 NT-Pro-B Natriuret Pep Impressions: Thoracentesis Ultrasound 05/01/19 00:00 IMPRESSION: SUCCESSFUL THORACENTESIS USING ULTRASOUND GUIDANCE. Chest X-Ray 05/01/19 15:56 IMPRESSION: Interval placement of a right internal jugular [place]-Zaira catheter with tip overlying right main pulmonary artery. Stable enlarged cardiac silhouette and bilateral interstitial and alveolar opacities. Assessment & Plan - Diagnosis (1) Right heart failure due to pulmonary hypertension Is this a current diagnosis for this admission?: Yes Plan: Continue milrinone. Dr. Torres plans on adenosine stress test today with monitoring of PA pressures. (2) CKD (chronic kidney disease) stage 3, GFR 30-59 ml/min Is this a current diagnosis for this admission?: Yes Plan: About the same. Slightl improved but still highly dysfunctional. His delirium is most likely not due to uremia as it has been 50-60 throughout. (3) COPD (chronic obstructive pulmonary disease) Qualifiers: COPD type: unspecified COPD Qualified Code(s): J44.9 - Chronic obstructive pulmonary disease, unspecified Is this a current diagnosis for this admission?: Yes Plan: Likely the degree of COPD is effecting his R heart with high PA pressures and cor pulmonale as evidenced by pedal edema. Pressures are better on milrinone. (4) Type 2 diabetes mellitus Qualifiers: Diabetes mellitus group home insulin use: without terminal press operator use Diabetes mellitus complication status: without complication Qualified Code(s): E11.9 - Type 2 diabetes mellitus without complications Is this a current diagnosis for this admission?: Yes Plan: Controled but patient not eating much (5) Delirium due to another medical condition Is this a current diagnosis for this admission?: Yes Plan: This is likely multifactorial. Sleep deprivation and benzodiazeoine use. Doubt alcohol WD due to timing. I dont think uremia is a major factor. Re-orient, allow to sleep. No benzodiazepines. - Time Time Spent with patient: 35 or more minutes Total Critical Time (Minutes): 35 Level of Care: ICU Medications reviewed and adjusted accordingly: Yes Within: Other - Inpatient Certification Based on my medical assessment, after consideration of the patient's comorbidities, presenting symptoms, or acuity I expect that the services needed warrant INPATIENT care.: Yes I certify that my determination is in accordance with my understanding of Medicare's requirements for reasonable and necessary INPATIENT services [42 CFR 412.3e].: Yes Medical Necessity: Failure to Improve With Outpatient Therapy, Significant Comorbidiites Make Outpatient Treatment Too Risky, Need Close Monitoring Due to Risk of Patient Decompensation, Need For Continuous Telemetry Monitoring, Risk of Complication if Not Cared For in Hospital
[2019-05-02] MEDS: INSULIN REG, HUMAN 100 UNIT/ML 3 ML VIAL (PYX) SUBCUT SCH ×4 (08:17→21:17)
[2019-05-02] MEDS ORDERED: FERRIC CARBOXYMALTOSE INJ 750 MG/15 ML VIAL IV ONE (09:00)
[2019-05-02] MEDS: CEFEPIME 1 GM/D5W RTU 1 GM/50 ML RTUPB IV SCH (10:01)
[2019-05-02] MEDS: FERRIC CARBOXYMALTOSE 750 MG in NORMAL SALINE 100 ML IV ONE ×2 (10:43→10:45)
[2019-05-02 11:14] LABS: ARTERIAL BLOOD BASE EXCESS -0.4 mmol/L; ARTERIAL BLOOD H2CO3 1.47 mmol/L (1.05-1.35); ARTERIAL BLOOD HCO3 25.7 mmol/L (20-24); ARTERIAL BLOOD O2 SATURATION 92.3 % (94-98); ARTERIAL BLOOD PH 7.34 (7.35-7.45); ARTERIAL BLOOD PO2 68.1 mmHg (80-100); ARTERIAL BLOOD TOTAL CO2 27.2 mmol/L (23-27)
[2019-05-02 11:15] LABS: ARTERIAL BLOOD FIO2 45%
[2019-05-02] MEDS ORDERED: MAGNESIUM SULFATE INJ 8 MEQ/2 ML IV ONE (12:02)
--- NOTE | 2019-05-02 12:04 | PDOC PROGRESS REPORT ---
Subjective Progress Note for:: 05/02/19 Reason For Visit: Is seen.. He is on BiPAP. He is poorly responsive to loud commands or mild painful stimuli. His is at the bedside. Discussions were done with the treating nurse Mely as well as the precipitate washer Dr. Robin. Reviewed labs and medications. Is currently receiving IV milrinone besides IV Lasix and other medications. Reviewed his [place]a readings which shows improved pulmonary arterial pressure fom 50 + to current 20 + and wedge is come down from around 25 to current 13. His CVP was 5. He has made decent amount of urine between 1-1.5 L. Physical Exam Vital Signs: Temp Pulse Resp BP Pulse Ox 96.8 F L 83 21 H 114/58 L 95 05/02/19 08:15 05/02/19 10:00 05/02/19 08:15 05/02/19 10:00 05/02/19 08:15 Intake & Output 05/01/19 05/02/19 05/03/19 06:59 06:59 06:59 Intake Total 890 485 Output Total 350 1175 15 Balance 540 -690 -15 Weight 94.2 kg 92.5 kg General appearance: PRESENT: no acute distress Exam: He is on BiPAP and is not responding to loud commands or mild painful stimuli. Eye exam: PRESENT: EOMI, PERRLA Respiratory exam: PRESENT: clear to auscultation zachariah. ABSENT: crackles Cardiovascular exam: PRESENT: +S1, +S2. ABSENT: rubs GI/Abdominal exam: PRESENT: normal bowel sounds, soft. ABSENT: organomegaly, tenderness Extremities exam: PRESENT: +2 edema Neurological exam: PRESENT: altered Results Laboratory Results: 05/02/19 03:41 05/02/19 03:41 05/02/19 05/02/19 05/02/19 03:41 03:41 03:41 WBC 5.7 RBC 2.71 L Hgb 8.5 L Hct 25.0 L MCV 92 MCH 31.2 MCHC 33.8 RDW 14.7 H Plt Count 258 Retic Count (auto) 3.55 H Carbonic Acid HCO3/H2CO3 Ratio ABG pH ABG pCO2 ABG pO2 ABG HCO3 ABG O2 Saturation ABG Base Excess FiO2 Sodium 140.7 Potassium 4.0 Chloride 104 Carbon Dioxide 27 Anion Gap 10 BUN 60 H Creatinine 4.25 H Est GFR ( Amer) 17 L Glucose 105 Calcium 8.1 L Phosphorus 5.0 H Magnesium 1.6 Iron < 10.1 L TIBC 163 L Ferritin 233.00 Vitamin B12 302.0 Folate 6.03 TSH PTH Intact 143.8 H 05/02/19 05/02/19 03:41 11:00 WBC RBC Hgb Hct MCV MCH MCHC RDW Plt Count Retic Count (auto) Carbonic Acid 1.47 H HCO3/H2CO3 Ratio 17:1 ABG pH 7.34 L ABG pCO2 49.0 H ABG pO2 68.1 L ABG HCO3 25.7 H ABG O2 Saturation 92.3 L ABG Base Excess -0.4 FiO2 45% Sodium Potassium Chloride Carbon Dioxide Anion Gap BUN Creatinine Est GFR ( Amer) Glucose Calcium Phosphorus Magnesium Iron TIBC Ferritin Vitamin B12 Folate TSH 2.02 PTH Intact 04/29/19 04/29/19 04/29/19 16:00 16:00 21:32 Creatine Kinase 415 H 265 H CK-MB (CK-2) 3.68 Troponin I 0.064 NT-Pro-B Natriuret Pep 52233 H 04/29/19 04/30/19 04/30/19 21:32 02:57 03:02 Creatine Kinase 207 H CK-MB (CK-2) 3.00 2.54 Troponin I 0.088 0.084 NT-Pro-B Natriuret Pep 04/30/19 04/30/19 08:25 08:25 Creatine Kinase 171 H CK-MB (CK-2) 2.90 Troponin I 0.065 NT-Pro-B Natriuret Pep Impressions: Thoracentesis Ultrasound 05/01/19 00:00 IMPRESSION: SUCCESSFUL THORACENTESIS USING ULTRASOUND GUIDANCE. Chest X-Ray 05/01/19 15:56 IMPRESSION: Interval placement of a right internal jugular [place] catheter with tip overlying right main pulmonary artery. Stable enlarged cardiac silhouette and bilateral interstitial and alveolar opacities. Assessment & Plan - Diagnosis (1) Acute exacerbation of congestive heart failure Qualifiers: Heart failure type: right-sided Qualified Code(s): I50.813 - Acute on chronic right heart failure Is this a current diagnosis for this admission?: Yes Plan: Looks like the patient has biventricular failure. He seems to be responding to the milrinone. I would continue current medications as is. Further recommendations from cardiology. (2) Acute hypoxemic respiratory failure Plan: Since patient is not responding I am going to order an ABG and will see what that shows.Earlier ABG reviewed showed hypercarbia and hypoxia which seems to have improved with placement of BiPAP. (3) Acute kidney injury Is this a current diagnosis for this admission?: Yes Plan: Nonoliguric. Stable renal numbers. Continue present lines of management including inotropes as well as diuretics. (4) Atrial flutter Plan: Rate control now. (5) Bilateral pleural effusion Plan: Status post thoracentesis with improvement in symptoms apparently yesterday. (6) CKD (chronic kidney disease) stage 3, GFR 30-59 ml/min Is this a current diagnosis for this admission?: Yes Plan: Try to get old records/chemistry from his primary care from earlier this year or late last year. (7) Diabetes mellitus type 2 in nonobese Is this a current diagnosis for this admission?: Yes Plan: Monitor closely. Avoid hypoglycemia. (8) Anemia Qualifiers: Anemia type: iron deficiency Plan: Iron deficiency indicis. Iron infusion ordered. (9) Hypomagnesemia Plan: On [id number] diuretics. Order IV replacement. Monitor.
[2019-05-02] MEDS ORDERED: MAGNESIUM SULFATE/D5W 1 GM/100 ML RTUPB IV ONE (13:00)
[2019-05-02] MEDS: APIXABAN 2.5 MG TABLET PO SCH ×2 (13:04→17:41)
[2019-05-02] MEDS: LOSARTAN POTASSIUM 50 MG TABLET PO SCH (13:04)
[2019-05-02] MEDS: HYDRALAZINE HCL 10 MG TABLET PO SCH ×2 (13:05→22:06)
[2019-05-02] MEDS: DOCUSATE SODIUM 100 MG CAPSULE PO SCH ×2 (13:05→17:41)
[2019-05-02] MEDS: METOPROLOL SUCCINATE 50 MG TAB.SR.24H PO SCH ×3 (13:06→21:17)
[2019-05-02] MEDS ORDERED: ONDANSETRON HCL INJ/PF 4 MG/2 ML SDV IV PRN (13:19)
[2019-05-02] MEDS ORDERED: MELATONIN 3 MG TABLET PO PRN (13:20)
[2019-05-02] MEDS: ATORVASTATIN CALCIUM 40 MG TABLET PO SCH (21:17)
[2019-05-02] MEDS: INSULIN GLARGINE,HUM.REC.ANLOG 1,000 UNIT/10 ML VIAL SUBCUT SCH (22:02)
--- NOTE | 2019-05-02 22:29 | Progress Note ---
Provider Note Provider Note: SUBJECTIVE: The patient continues to be short of breath and needs to BiPAP. But his pulmonary artery pressures have come down and in the 40s. His wedge is also come down to normal. There is no recurrence of atrial flutter or fibrillation. There is no ventricular arrhythmia seen. The patient has no PND orthopnea. He has cough nonproductive of any sputum. There is no TIA CVA symptoms. Would recommend restarting the patient's Eliquis. PHYSICAL EXAMINATION: Although the patient is of normal build he appears to be chronically ill. Selected Entries 05/02/19 10:15 Temperature 97.0 F Heart Rate ( 82 Monitors) Respiratory 19 Rate Blood Pressure 114/48 L Blood Pressure 70 Mean O2 Sat by Pulse 96 Oximetry Pulmonary 40 Arterial Occlusion Pressure- Systolic Pulmonary 16 Arterial Occlusion Pressure- Diastolic Pulmonary 24 Arterial Occlusion Pressure- Mean Central Venous 6 Pressure- Mean Pulmonary artery wedge pressure: Is 13 The patient's cardiac output and hemodynamic profile was reviewed Head: Is atraumatic normocephalic. EYES: Pupils are equal round regular reactive light accommodation. Extraocular movements are normal. There is no conjunctival pallor. There is no scleral icterus. EARS: Tympanic membranes are intact. External auditory canals are clear. NOSE: There is no deviated nasal septum. There is no inflammation nasal mucous membrane. MOUTH: There is no bleeding from the gums. There is no ulcers in the mouth. THROAT: There is no redness of the oropharynx. There is no exudates. SKIN: There is no petechia or ecchymosis. There is no skin rashes or skin lesions. NECK: There is no definite JVD present. Carotids are equal. There is no bruits. There is no lymphadenopathy. There is no accessory muscle respiration use. Trachea central LUNGS: Shows diminished air entry prolonged expiration. There is absent breath sounds and dullness in both bases. On palpation there is no chest wall tenderness. HEART: S1-S2 is heard there is no S3 gallop. There is no S4 gallop. Systolic murmur left sternal border and the apex there is no rub. ABDOMEN: Soft. Nontender. There is no hepatospleno megaly. Bowel bowel sounds are well heard. EXTREMITIES: Femorals are slightly diminished. There is no femoral bruits. Leg pulses are slightly diminished. There is trace bilateral pedal edema. There is no DVT or cellulitis. There is no cyanosis or clubbing. RADIO DIRECTOR: The patient is conscious awake alert oriented x3 with no focal deficits. PSYCHIATRIC: The patient appears to be slightly depressed but his judgment intact are still intact. Labs- All tests 24 hr 05/01/19 05/01/19 05/01/19 11:50 11:50 11:50 WBC RBC Hgb Hct MCV MCH MCHC RDW Plt Count Reticulocyte # Retic Count (auto) Carbonic Acid HCO3/H2CO3 Ratio ABG pH ABG pCO2 ABG pO2 ABG HCO3 ABG Total CO2 ABG O2 Saturation ABG Base Excess FiO2 Sodium Potassium Chloride Carbon Dioxide Anion Gap BUN Creatinine Est GFR ( Amer) Est GFR (MDRD) Non-Af Glucose POC Glucose Calcium Phosphorus Magnesium Iron TIBC Iron Saturation Ferritin Vitamin B12 Folate TSH PTH Intact Fluid Glucose 202 Fluid Amylase 18 AFB Smear NO ACID FAST BACILLI 05/02/19 05/02/19 05/02/19 03:41 03:41 03:41 WBC 5.7 RBC 2.71 L Hgb 8.5 L Hct 25.0 L MCV 92 MCH 31.2 MCHC 33.8 RDW 14.7 H Plt Count 258 Reticulocyte # 0.096 Retic Count (auto) 3.55 H Carbonic Acid HCO3/H2CO3 Ratio ABG pH ABG pCO2 ABG pO2 ABG HCO3 ABG Total CO2 ABG O2 Saturation ABG Base Excess FiO2 Sodium 140.7 Potassium 4.0 Chloride 104 Carbon Dioxide 27 Anion Gap 10 BUN 60 H Creatinine 4.25 H Est GFR ( Amer) 17 L Est GFR (MDRD) Non-Af 14 L Glucose 105 POC Glucose Calcium 8.1 L Phosphorus 5.0 H Magnesium 1.6 Iron < 10.1 L TIBC 163 L Iron Saturation UNABLE TO CALCULATE Ferritin 233.00 Vitamin B12 302.0 Folate 6.03 TSH PTH Intact 143.8 H Fluid Glucose Fluid Amylase AFB Smear 05/02/19 05/02/19 05/02/19 03:41 08:08 11:00 WBC RBC Hgb Hct MCV MCH MCHC RDW Plt Count Reticulocyte # Retic Count (auto) Carbonic Acid 1.47 H HCO3/H2CO3 Ratio 17:1 ABG pH 7.34 L ABG pCO2 49.0 H ABG pO2 68.1 L ABG HCO3 25.7 H ABG Total CO2 27.2 H ABG O2 Saturation 92.3 L ABG Base Excess -0.4 FiO2 45% Sodium Potassium Chloride Carbon Dioxide Anion Gap BUN Creatinine Est GFR ( Amer) Est GFR (MDRD) Non-Af Glucose POC Glucose 133 H Calcium Phosphorus Magnesium Iron TIBC Iron Saturation Ferritin Vitamin B12 Folate TSH 2.02 PTH Intact Fluid Glucose Fluid Amylase AFB Smear 05/02/19 05/02/19 05/02/19 12:52 16:22 21:13 WBC RBC Hgb Hct MCV MCH MCHC RDW Plt Count Reticulocyte # Retic Count (auto) Carbonic Acid HCO3/H2CO3 Ratio ABG pH ABG pCO2 ABG pO2 ABG HCO3 ABG Total CO2 ABG O2 Saturation ABG Base Excess FiO2 Sodium Potassium Chloride Carbon Dioxide Anion Gap BUN Creatinine Est GFR ( Amer) Est GFR (MDRD) Non-Af Glucose POC Glucose 121 H 117 H 82 Calcium Phosphorus Magnesium Iron TIBC Iron Saturation Ferritin Vitamin B12 Folate TSH PTH Intact Fluid Glucose Fluid Amylase AFB Smear 05/02/19 22:05 WBC RBC Hgb Hct MCV MCH MCHC RDW Plt Count Reticulocyte # Retic Count (auto) Carbonic Acid HCO3/H2CO3 Ratio ABG pH ABG pCO2 ABG pO2 ABG HCO3 ABG Total CO2 ABG O2 Saturation ABG Base Excess FiO2 Sodium Potassium Chloride Carbon Dioxide Anion Gap BUN Creatinine Est GFR ( Amer) Est GFR (MDRD) Non-Af Glucose POC Glucose 96 Calcium Phosphorus Magnesium Iron TIBC Iron Saturation Ferritin Vitamin B12 Folate TSH PTH Intact Fluid Glucose Fluid Amylase AFB Smear Chest X-Ray 04/29/19 16:31 IMPRESSION: Moderate bilateral pleural effusions and perihilar/bibasilar consolidations suggestive of pulmonary edema and atelectasis. Superimposed infectious process cannot be excluded. Chest X-Ray 05/01/19 00:00 IMPRESSION: 1. Status post right thoracentesis. No evidence of a pneumothorax. 2. Small left pleural effusion and left lower lung consolidation. Patchy areas of airspace disease in the mid and lower lung zones bilaterally. Thoracentesis Ultrasound 05/01/19 00:00 IMPRESSION: SUCCESSFUL THORACENTESIS USING ULTRASOUND GUIDANCE. Chest X-Ray 05/01/19 14:00 IMPRESSION: No pneumothorax post right thoracentesis. Stable bibasilar interstitial and alveolar opacities from prior. Chest X-Ray 05/01/19 15:56 IMPRESSION: Interval placement of a right internal jugular [place] catheter with tip overlying right main pulmonary artery. Stable enlarged cardiac silhouette and bilateral interstitial and alveolar opacities. The patient's 24-hour intake is 485 mL. Output is 1175. IMPRESSION/RECOMMENDATION: 1. Shortness of breath with orthopnea with bilateral pleural effusions with bilateral pneumonia versus secondary to right heart failure causing pleural effusions, [place]Zair[place] catheter has been placed by the loss prevention supervisor.. This shows severe pulmonary hypertension with right with systolic pressure of 62. Also the patient's which is elevated at 22. We will start the patient on milrinone as discussed with the loss prevention supervisor. 2. Significant pulmonary hypertension: Pulmonary artery pressures have come down with the milrinone infusion. Also the patient's blood pressure is now normal. We will start the patient on hydralazine so we can wean the patient on milrinone. 3.Acute on chronic kidney disease: Would hold off on the diuretics. Nephrology consulted. This is one more reason for placement of a [place]a catheter. 4. Chronic obstructive pulmonary disease: At present cannot exclude acute exacerbation 5. Paroxysmal atrial flutter: Patient sinus rhythm. Continue his current beta- blockers and Eliquis will be restarted. The Eliquis was stopped for patient's thoracentesis. 6. Diabetes mellitus: Continue antidiabetic regimen and asked to check serially. 7. Peripheral vascular disease: Asymptomatic. Occasions reviewed. Medications added. Indication regimen and management plan discussed with the loss prevention supervisor. Medical decision making is of high complexity. 40 minutes spent on this patient with more than 50% time spent in direct patient care. Will follow.
[2019-05-03] MEDS: LEVALBUTEROL HCL NEB 1.25 MG/3 ML AMPUL NEB SCH ×3 (00:20→15:38)
[2019-05-03] MEDS: IPRATROPIUM BROMIDE 0.02% NEB 0.5 MG/2.5 ML AMPUL NEB SCH ×3 (00:20→15:38)
[2019-05-03 04:29] LABS: ANION GAP 11 (5-19); BLOOD UREA NITROGEN 56 mg/dL (7-20); CALCIUM 8.5 mg/dL (8.4-10.2); CARBON DIOXIDE 25 mmol/L (22-30); CHLORIDE 105 mmol/L (98-107); GLUCOSE 92 mg/dL (75-110); POTASSIUM 3.9 mmol/L (3.6-5.0)
[2019-05-03] MEDS: FUROSEMIDE INJ/PF 20 MG/2 ML SDV IV SCH ×2 (06:04→13:18)
[2019-05-03] MEDS: HYDRALAZINE HCL 10 MG TABLET PO SCH ×2 (06:33→13:18)
[2019-05-03] MEDS: BUDESONIDE NEB 0.5 MG/2 ML AMPUL NEB SCH (07:54)
[2019-05-03] MEDS: INSULIN REG, HUMAN 100 UNIT/ML 3 ML VIAL (PYX) SUBCUT SCH ×3 (08:23→17:14)
[2019-05-03] MEDS: METOPROLOL SUCCINATE 50 MG TAB.SR.24H PO SCH (09:24)
[2019-05-03] MEDS: APIXABAN 2.5 MG TABLET PO SCH ×2 (09:24→18:10)
[2019-05-03] MEDS: LOSARTAN POTASSIUM 50 MG TABLET PO SCH (09:24)
[2019-05-03] MEDS: CEFEPIME 1 GM/D5W RTU 1 GM/50 ML RTUPB IV SCH ×2 (09:25→09:52)
[2019-05-03] MEDS: DOCUSATE SODIUM 100 MG CAPSULE PO SCH ×2 (09:25→18:10)
--- NOTE | 2019-05-03 10:50 | PDOC PROGRESS REPORT ---
Subjective Progress Note for:: 05/03/19 Subjective:: Comfortable lying down. More awake. Reason For Visit: ACUTE PULMONARY EDEMA, ACUTE RESPIRATORY FAILURE Physical Exam Vital Signs: Temp Pulse Resp BP Pulse Ox 97.7 F 82 23 H 138/55 H 92 05/03/19 08:16 05/03/19 10:00 05/03/19 10:00 05/03/19 10:00 05/03/19 10:00 Intake & Output 05/02/19 05/03/19 05/04/19 06:59 06:59 06:59 Intake Total 485 249 373 Output Total 1175 58546 1200 Balance -190 -39419 -827 Weight 92.5 kg 90.6 kg General appearance: PRESENT: no acute distress, well-developed, well-nourished Head exam: PRESENT: atraumatic, normocephalic Eye exam: PRESENT: conjunctiva pink, EOMI, PERRLA. ABSENT: scleral icterus Ear exam: PRESENT: normal external ear exam Mouth exam: PRESENT: moist, tongue midline Respiratory exam: PRESENT: crackles, decreased breath sounds, unlabored Cardiovascular exam: PRESENT: RRR. ABSENT: diastolic murmur, rubs, systolic murmur Vascular exam: PRESENT: normal capillary refill GI/Abdominal exam: PRESENT: normal bowel sounds, soft. ABSENT: distended, guarding, mass, organolmegaly, rebound, tenderness Rectal exam: PRESENT: deferred Extremities exam: PRESENT: pedal edema Musculoskeletal exam: PRESENT: normal inspection Neurological exam: PRESENT: alert, awake, oriented to person, oriented to place, oriented to time, oriented to situation, CN II-XII grossly intact. ABSENT: motor sensory deficit Psychiatric exam: PRESENT: appropriate affect, normal mood. ABSENT: homicidal ideation, suicidal ideation Skin exam: PRESENT: dry, intact, warm. ABSENT: cyanosis, rash Results Laboratory Results: 05/02/19 03:41 05/03/19 03:53 05/01/19 05/01/19 05/02/19 11:50 11:50 11:00 Carbonic Acid 1.47 H HCO3/H2CO3 Ratio 17:1 ABG pH 7.34 L ABG pCO2 49.0 H ABG pO2 68.1 L ABG HCO3 25.7 H ABG O2 Saturation 92.3 L ABG Base Excess -0.4 FiO2 45% Sodium Potassium Chloride Carbon Dioxide Anion Gap BUN Creatinine Est GFR ( Amer) Glucose Calcium Magnesium Fluid Glucose 202 Fluid Amylase 18 05/03/19 03:53 Carbonic Acid HCO3/H2CO3 Ratio ABG pH ABG pCO2 ABG pO2 ABG HCO3 ABG O2 Saturation ABG Base Excess FiO2 Sodium 140.8 Potassium 3.9 Chloride 105 Carbon Dioxide 25 Anion Gap 11 BUN 56 H Creatinine 3.36 H Est GFR ( Amer) 22 L Glucose 92 Calcium 8.5 Magnesium 1.8 Fluid Glucose Fluid Amylase 05/01/19 11:50 Pleural Fluid - Not Specified AFB Smear Concentration - Final 05/01/19 11:50 Pleural Fluid - Not Specified Acid Fast Bacilli Smear - Final 04/29/19 04/29/19 04/29/19 16:00 16:00 21:32 Creatine Kinase 415 H 265 H CK-MB (CK-2) 3.68 Troponin I 0.064 NT-Pro-B Natriuret Pep 46328 H 04/29/19 04/30/19 04/30/19 21:32 02:57 03:02 Creatine Kinase 207 H CK-MB (CK-2) 3.00 2.54 Troponin I 0.088 0.084 NT-Pro-B Natriuret Pep 04/30/19 04/30/19 08:25 08:25 Creatine Kinase 171 H CK-MB (CK-2) 2.90 Troponin I 0.065 NT-Pro-B Natriuret Pep Impressions: Thoracentesis Ultrasound 05/01/19 00:00 IMPRESSION: SUCCESSFUL THORACENTESIS USING ULTRASOUND GUIDANCE. Chest X-Ray 05/01/19 15:56 IMPRESSION: Interval placement of a right internal jugular [place]-Zaira catheter with tip overlying right main pulmonary artery. Stable enlarged cardiac silhouette and bilateral interstitial and alveolar opacities. Assessment & Plan - Diagnosis (1) Right heart failure due to pulmonary hypertension Is this a current diagnosis for this admission?: Yes Plan: Off milrinone today. Follow PA numbers and recheck cardiac profile later today. Melissa Smith to perform stress test Tuesday. Repeat CXR to f/u on R effusion. (2) CKD (chronic kidney disease) stage 3, GFR 30-59 ml/min Is this a current diagnosis for this admission?: Yes Plan: Cr 3.3 and GFR 28. Improving but still not at baseline. (3) COPD (chronic obstructive pulmonary disease) Qualifiers: COPD type: unspecified COPD Qualified Code(s): J44.9 - Chronic obstructive pulmonary disease, unspecified Is this a current diagnosis for this admission?: Yes Plan: Stable (4) Type 2 diabetes mellitus Qualifiers: Diabetes mellitus bed bug exterminator insulin use: without care home use Diabetes mellitus complication status: without complication Qualified Code(s): E11.9 - Type 2 diabetes mellitus without complications Is this a current diagnosis for this admission?: Yes Plan: Well controlled. - Time Time Spent with patient: 35 Time Spent with patient: 35 or more minutes Total Critical Time (Minutes): 35 Level of Care: ICU Medications reviewed and adjusted accordingly: Yes Anticipated discharge: SNF Within: within 72 hours - Inpatient Certification Based on my medical assessment, after consideration of the patient's comorbidities, presenting symptoms, or acuity I expect that the services needed warrant INPATIENT care.: Yes I certify that my determination is in accordance with my understanding of Medicare's requirements for reasonable and necessary INPATIENT services [42 CFR 412.3e].: Yes Medical Necessity: Failure to Improve With Outpatient Therapy, Significant Comorbidiites Make Outpatient Treatment Too Risky, Need Close Monitoring Due to Risk of Patient Decompensation
[2019-05-03] MEDS ORDERED: ACETAMINOPHEN 325 MG TABLET PO PRN (10:59)
--- NOTE | 2019-05-03 12:00 | RADIOLOGY REPORT (SQ) ---
EXAM DESCRIPTION: CHEST SINGLE VIEW COMPLETED DATE/TIME: 05/03/2019 10:57 am REASON FOR STUDY: CHF COMPARISON: 05/01/2019 NUMBER OF VIEWS: One view. TECHNIQUE: Single frontal radiographic image of the chest acquired. LIMITATIONS: None. FINDINGS: LUNGS AND PLEURA: Bilateral effusions and associated airspace disease, left greater than r ight. Improved aeration in the left lung. No pneumothorax. MEDIASTINUM AND HEART: Stable heart size and mediastinal structures. SUPPORT DEVICES: Appropriate location without change. BONY STRUCTURES: No acute findings. HARDWARE: None. OTHER: No other significant finding. IMPRESSION: Improving asymmetric edema or pneumonia. No pneumothorax. Reading location - IP/workstation name: [email or web address]
[2019-05-03] MEDS ORDERED: TAMSULOSIN HCL 0.4 MG CAP.SR.24H PO ONE (17:30)
[2019-05-03] MEDS ORDERED: TAMSULOSIN HCL 0.4 MG CAP.SR.24H PO SCH (18:00)
[2019-05-03 18:29] VITALS: BP 141/59
--- NOTE | 2019-05-03 19:00 | Left Against Medical Advice ---
Against Medical Advice Admission Date/Time: 04/29/19 19:43 Primary Care Provider: REYNA PENN MD Date of Patient Emigration: 05/03/19 - Diagnosis: (1) Right heart failure due to pulmonary hypertension Is this a current diagnosis for this admission?: Yes (2) CKD (chronic kidney disease) stage 3, GFR 30-59 ml/min Is this a current diagnosis for this admission?: Yes (3) COPD (chronic obstructive pulmonary disease) Is this a current diagnosis for this admission?: Yes (4) Type 2 diabetes mellitus Is this a current diagnosis for this admission?: Yes - Summary: Summary: Please see Admission and Progress Notes as well. JOSE GARCIA is a 68 M, who LEFT AGAINST MEDICAL ADVICE. The Patient was admitted on 04/29/19 19:43. The stated plan for this patient was to have Dr. Torres perform a stress test in AM and depending on results possibly discharge.However patient is adament he wants PA catheter out and to be discharged. This is against medical advice. He has been counseled by me and multiple nurses. He is coherent and even under the possibility of readmission and he is willing to sign himself out. is returning to pick him up.
[2019-05-04 16:37] LABS: A/G RATIO 1.2 (0.7-1.7); ALBUMIN 2 2.5 g/dL (2.9-4.4); ALPHA-2-GLOBULIN 2 0.9 g/dL (0.4-1.0); BETA GLOBULINS 0.6 g/dL (0.7-1.3); GAMMA GLOBULIN 0.4 g/dL (0.4-1.8); GLOBULIN TOTAL 2.1 g/dL (2.2-3.9); MONOCLONAL SPIKE Not Observed g/dL (Not Observ); PROTEIN TOTAL SERUM 4.6 g/dL (6.0-8.5)
== END 2019-05-03 19:05 | disposition left against medical advice (07) | DRG 291 ==
LOC: ER 16:13 → EH 19:43 → 3N 22:27 → ICU 05-01 15:08
PROVIDERS: ADMIT Anesthesiology; ATTEND Anesthesiology
PROC: 5A09557 Assistance with Respiratory Ventilation, Greater than 96 Consecutive Hours, Continuous Positive Airway Pressure (ICD-10-PCS; 2019-04-29)
PROC: 0W993ZZ Drainage of Right Pleural Cavity, Percutaneous Approach (ICD-10-PCS; principal; 2019-05-01)
PROC: 02HQ32Z Insertion of Monitoring Device into Right Pulmonary Artery, Percutaneous Approach (ICD-10-PCS; 2019-05-01)
DX: I13.0 Hypertensive heart and chronic kidney disease with heart failure and stage 1 through stage 4 chronic kidney disease, or unspecified chronic kidney disease (principal); J96.01 Acute respiratory failure with hypoxia; I50.33 Acute on chronic diastolic (congestive) heart failure; N17.9 Acute kidney failure, unspecified; J44.1 Chronic obstructive pulmonary disease with (acute) exacerbation; N18.3 Chronic kidney disease, stage 3 (moderate); I27.20 Pulmonary hypertension, unspecified; I50.82 Biventricular heart failure; I25.10 Atherosclerotic heart disease of native coronary artery without angina pectoris; I48.0 Paroxysmal atrial fibrillation; E78.5 Hyperlipidemia, unspecified; E11.22 Type 2 diabetes mellitus with diabetic chronic kidney disease; E83.42 Hypomagnesemia; D50.9 Iron deficiency anemia, unspecified; I73.9 Peripheral vascular disease, unspecified; I25.2 Old myocardial infarction; Z79.4 Long term (current) use of insulin
CPT/HCPCS: 32555; 36415; 36600; 71045; 80048; 80053; 80061; 81001; 82150; 82550; 82553; 82607; 82728; 82746; 82803; 82945; 82962; 83036; 83540; 83550; 83605; 83735; 83880; 83970; 84100; 84165; 84443; 84484; 85025; 85027; 85045; 85610; 85730; 87015; 87040; 87070; 87075; 87101; 87116; 87205; 87206; 87252; 93005; 93010; 94640; 94660; 96365; 96367; 96375; 99291; C1887; J0692; J1439; J1815; J1940; J2060; J2260; J2543; J3230; J3370; J3475; J3490; J7050

== ENCOUNTER → 2019-05-09 | Outpatient (CLI) | payer OTHER, MEDICARE ==
--- NOTE | 2019-05-09 13:50 | RADIOLOGY REPORT (SQ) ---
EXAM DESCRIPTION: CHEST PA/LATERAL COMPLETED DATE/TIME: 05/09/2019 1:40 pm REASON FOR STUDY: PLEURAL EFFUSION COMPARISON: 05/03/2019 EXAM PARAMETERS: NUMBER OF VIEWS: two views TECHNIQUE: Digital Frontal and Lateral radiographic views of the chest acquired. RADIATION DOSE: NA LIMITATIONS: none FINDINGS: LUNGS AND PLEURA: There is been a slight increase in bilateral pleural effusions. Persist ent basilar infiltrate either atelectasis or pneumonia. MEDIASTINUM AND HILAR STRUCTURES: No masses or contour abnormalities. HEART AND VASCULAR STRUCTURES: Heart normal size. No evidence for failure. BONES: No acute findings. HARDWARE: None in the chest. OTHER: No other significant finding. IMPRESSION: Small bilateral pleural effusions slightly increased from prior study. Minimal basilar infiltrate remains either atelectasis or pneumonia. TECHNICAL DOCUMENTATION: JOB ID: [id number] [employer]- All Rights Reserved Reading location - IP/workstation name: [email or web address]
== END ==
LOC: OD 13:18
PROVIDERS: ATTEND Specialist
DX: J90 Pleural effusion, not elsewhere classified (principal)
CPT/HCPCS: 71046

== ENCOUNTER 2019-05-13 13:14 | Inpatient (IN) | payer OTHER, MEDICARE ==
[2019-05-13] MEDS ORDERED: IPRATROPIUM/ALBUTEROL 0.5-2.5 MG/3 ML AMPUL NEB ONE (14:14)
--- NOTE | 2019-05-13 14:19 | ER Document Report ---
ED General - General Chief Complaint: Respiratory Distress Stated Complaint: NECK PAIN Time Seen by Provider: 05/13/19 13:36 Primary Care Provider: REYNA PENN MD [Primary Care Provider] - Follow up as needed TRAVEL OUTSIDE OF THE [place] IN LAST 30 DAYS: No - HPI Notes: Patient is a 68-year-old male who presents to the emergency department for evaluation. Initially he called EMS because he felt a "pop in his head" and it became heavy. Upon EMS arrival, he was found to be 67% on room air. They placed him on oxygen and brought him to the emergency department for further e valuation. I was able to discuss this with the . She states that he has had this sensation in his head intermittently since his hospital admission back in February. He states this seemed to get better for a while, but started again over the last several days. Patient's states he has been extremely drowsy intermittently. She states he spent in bed. He was up on Tuesday, then spent yesterday in bed as well. The patient states he had some neck pain but this is chronic. Otherwise he denies any chest pain. No fevers. - Related Data Allergies/Adverse Reactions: No Known Allergies Allergy (Verified 04/19/19 00:42) Home Medications: Insulin Glargine 15 units PRN. Hydralazine 10mg twice daily. Metoprolol 50 mg Q12. Alodipine 10mg once daily. Atorvastatin 40 mg daily. Gabapentin 300 mg Q12. Metformin 500 mg 2 tablets twice daily. Eliquis 5mg Q12. Iron 65 mg 1 per day. Furosemide 40 mg daily. Isosorb [place] ER 60 mg 1 per day. Nitroglycerin SL .4 mg PRN Past Medical History - General Information source: Patient, Relative, [facility] Records - Social History Smoking Status: Current Some Day Smoker Frequency of alcohol use: None Drug Abuse: None Family History: COPD. denies: CAD, DM, Hypertension, Malignancy Patient has suicidal ideation: No Patient has homicidal ideation: No - Past Medical History Cardiac Medical History: Reports: Hx Atrial Fibrillation, Hx Congestive Heart Failure, Hx Coronary Artery Disease, Hx Heart Attack, Hx Hypercholesterolemia Denies: Hx DVT, Hx Hypertension, Hx Pulmonary Embolism Pulmonary Medical History: Reports: Hx COPD, Hx Intubation, Hx Respiratory Failure Denies: Hx Asthma, Hx Bronchitis, Hx Pneumonia Neurological Medical History: Denies: Hx Cerebrovascular Accident, Hx Seizures Endocrine Medical History: Reports: Hx Diabetes Mellitus Type 2. Denies: Hx Diabetes Mellitus Type 1, Hx Hyperthyroidism, Hx Hypothyroidism GI Medical History: Denies: Hx Cirrhosis, Hx Crohn's Disease, Hx Hepatitis, Hx Ulcerative Colitis - 2 admissions Musculoskeletal Medical History: Denies Hx Arthritis, Denies Hx Gout Skin Medical History: Denies Hx Eczema, Denies Hx Psoriasis Psychiatric Medical History: Denies: Hx Depression Infectious Medical History: Denies: Hx Hepatitis Past Surgical History: Reports: Other - Bilateral chest tubes on recent hospitalization - Immunizations Hx Diphtheria, Pertussis, Tetanus Vaccination: Yes Review of Systems - Review of Systems Constitutional: See HPI EENT: No symptoms reported Cardiovascular: No symptoms reported Respiratory: See HPI Gastrointestinal: No symptoms reported Genitourinary: No symptoms reported Musculoskeletal: See HPI Skin: No symptoms reported Neurological/Psychological: See HPI Physical Exam - Vital signs Vitals: Resp Pulse Ox 22 H 89 L 05/13/19 13:17 05/13/19 13:17 - Notes Notes: This is a 68-year-old male who appears his stated age, in no acute distress. He is drowsy, but awakens his eyes to verbal stimulus, GCS 14. Vital signs reviewed, please refer to chart. Head is normocephalic, atraumatic. Pupils equal round, reactive to light. Neck is without meningismus, mild paraspinal musculature tenderness noted bilaterally. Heart is regular rate and rhythm. Lungs reveal diminished breath sounds throughout. Abdomen is soft, nontender, normoactive bowel sounds throughout. Extremities without cyanosis, clubbing. He does have 2+ pitting edema to the ankles. Posterior calves are nontender. Peripheral pulses are equal. Skin is warm and dry. Patient is drowsy but arouses easily to verbal stimuli. He moves all 4 extremities spontaneously. No gross facial asymmetry. Follows commands without difficulty. Course - Re-evaluation Re-evalutation: 05/13/19 14:18 Patient presents emergency department for evaluation. On arrival he was on 10 L oxygen high flow nasal cannula and was 97% on room air. I immediately decrease this, I am concerned about decreasing his respiratory drive. Patient was placed on BiPAP. Laboratory investigations, EKG, chest x-ray, CT scan of the head ordered. I have reevaluated this patient twice. He remains drowsy but appears stable. We will continue to monitor. 05/13/19 15:17 Patient denies any significant improvement on BiPAP, but he is less drowsy, interacting more with this examiner. pH was found to be 7.19 with an elevated PCO2 and a low PO2. Again, however, patient is clinically improving. Chest x- ray is read as edema versus infiltrate. Given this patient's recent hospitalization as well as history of Pseudomonas pneumonia I am inclined to treat. He is given cefepime. Laboratory investigations show acute on chronic renal failure with potassium of 5.4. He is receiving albuterol, which should cause a minor shift. He does not have any significant QRS widening. I am not inclined to be more aggressive with that at this time. My suspicion is that this patient may require at least temporary dialysis at some point. I spoke with Dr. Wick, hospital mortician who took care of this patient in the past. He assures me that a blood pressure in the 100s systolic is appropriate for this patient. He will come to the ED to evaluate the patient. 05/13/19 15:52 Dr. Wick came to the ED and will admit the patient. - Vital Signs Vital signs: Temp Pulse Resp BP Pulse Ox 97.8 F 21 H 114/54 L 98 05/13/19 14:13 05/13/19 15:32 05/13/19 15:32 05/13/19 15:32 - Laboratory Result Diagrams: 05/13/19 12:55 05/13/19 12:55 Laboratory results interpreted by me: 05/13/19 05/13/19 05/13/19 12:55 12:55 13:35 Carbonic Acid 1.81 H ABG pH 7.19 L* ABG pCO2 60.2 H ABG pO2 69.3 L ABG O2 Saturation 89.1 L Potassium 5.4 H BUN 83 H Creatinine 5.81 H Est GFR ( Amer) 12 L Est GFR (MDRD) Non-Af 10 L AST 72 H NT-Pro-B Natriuret Pep 29774 H - Diagnostic Test Radiology reviewed: Image reviewed, Reports reviewed Radiology results interpreted by me: 05/13/19 15:19 Chest X-Ray 05/13/19 13:36 IMPRESSION: Bilateral perihilar airspace opacities, may be secondary to pulmonary edema and/or pneumonia. Small right pleural effusion. Mild central vascular congestion. Head CT 05/13/19 13:37 IMPRESSION: NO ACUTE INTRACRANIAL IMAGING FINDINGS. EVIDENCE OF ACUTE STROKE: NO. - EKG Interpretation by Me Additional EKG results interpreted by me: 05/13/19 15:19 Sinus mechanism with rate of 62 bpm. Normal axis. Low voltage across the precordium. No acute ST changes concerning for ischemia or infarction. Critical Care Note - Critical Care Note Total time excluding time spent on procedures (mins): 40 Discharge - Discharge Clinical Impression: Hyperkalemia, Right heart failure due to pulmonary hypertension, Hypoxemia Acute respiratory failure Qualifiers: Respiratory failure complication: hypoxia and hypercapnia Qualified Code(s): J96.01 - Acute respiratory failure with hypoxia; J96.02 - Acute respiratory failure with hypercapnia Acute on chronic renal failure Qualifiers: Acute renal failure type: unspecified Chronic kidney disease stage: stage 5, not on chronic dialysis Qualified Code(s): N17.9 - Acute kidney failure, unspecified; N18.5 - Chronic kidney disease, stage 5 Condition: Stable Disposition: ADMITTED INPATIENT Admitting Provider: [facility] Admitted: ICU Referrals: REYNA PENN MD [Primary Care Provider] - Follow up as needed
[2019-05-13 14:30] LABS: ARTERIAL BLOOD BASE EXCESS -6.5 mmol/L; ARTERIAL BLOOD FIO2 3L; ARTERIAL BLOOD H2CO3 1.81 mmol/L (1.05-1.35); ARTERIAL BLOOD HCO3 22.2 mmol/L (20-24); ARTERIAL BLOOD O2 SATURATION 89.1 % (94-98); ARTERIAL BLOOD PCO2 60.2 mmHg (35-45); ARTERIAL BLOOD PO2 69.3 mmHg (80-100); ARTERIAL BLOOD TOTAL CO2 24.1 mmol/L (23-27)
[2019-05-13 14:32] LABS: ARTERIAL BLOOD PH 7.19 (7.35-7.45)
[2019-05-13 14:36] LABS: ALBUMIN 3.6 g/dL (3.5-5.0); ALKALINE PHOSPHATASE 95 U/L (38-126); ANION GAP 15 (5-19); ASPARTATE AMINO TRANSFERASE 72 U/L (17-59); BILIRUBIN,DIRECT 0.3 mg/dL (0.0-0.4); BILIRUBIN,TOTAL 0.4 mg/dL (0.2-1.3); BLOOD UREA NITROGEN 83 mg/dL (7-20); CALCIUM 8.8 mg/dL (8.4-10.2); CARBON DIOXIDE 23 mmol/L (22-30); CHLORIDE 104 mmol/L (98-107); GLUCOSE 96 mg/dL (75-110); POTASSIUM 5.4 mmol/L (3.6-5.0); TOTAL PROTEIN 6.3 g/dL (6.3-8.2)
[2019-05-13 14:54] LABS: TROPONIN I 0.445 ng/mL
--- NOTE | 2019-05-13 15:01 | RADIOLOGY REPORT (SQ) ---
EXAM DESCRIPTION: CT HEAD WITHOUT COMPLETED DATE/TIME: 05/13/2019 2:45 pm REASON FOR STUDY: Headache, altered level of consciousness COMPARISON: CT head 03/24/2019. TECHNIQUE: Axial images acquired through the brain without intravenous contrast. Images reviewed wi th bone, brain and subdural windows. Images stored on PACS. All CT scanners at this facility use dose modulation, iterative reconstruction, and/or weight based d osing when appropriate to reduce radiation dose to as low as reasonably achievable (ALARA). [facility]: Dose Right [facility]: CareDose [facility]: Dose Right [facility]: Teradose 4D [facility]: [employer] RADIATION DOSE: CT Rad equipment meets quality standard of care and radiation dose reduction techniq ues were employed. CTDIvol: 53.2 mGy. DLP: 1044 mGy-cm. mGy. LIMITATIONS: None. FINDINGS: VENTRICLES: Normal size and contour. CEREBRUM: No mass effect. No hemorrhage. No midline shift. Normal avalos/white matter differentiatio n. No evidence for acute territorial infarction. CEREBELLUM: No mass effect. No hemorrhage. No alteration of density. No evidence for acute infarct ion. EXTRAAXIAL SPACES: No fluid collections. ORBITS AND GLOBE: Symmetrical contour of the globes. CALVARIUM: No depressed skull fracture. PARANASAL SINUSES: No air-fluid level. Mucous retention cyst/polyp at the left maxillary sinus. SOFT TISSUES: No hematoma. IMPRESSION: NO ACUTE INTRACRANIAL IMAGING FINDINGS. EVIDENCE OF ACUTE STROKE: NO. COMMENT: Quality ID # [id number]: Final reports with documentation of one or more dose reduction techniques (e.g., Automated exposure control, adjustment of the mA and/or kV according to patient size, use of iterative reconstruction technique) TECHNICAL DOCUMENTATION: JOB ID: [id number] [place]-[id number] 2010 [employer]- All Rights Reserved Reading location - IP/workstation name: [email or web address]
--- NOTE | 2019-05-13 15:03 | RADIOLOGY REPORT (SQ) ---
EXAM DESCRIPTION: CHEST SINGLE VIEW COMPLETED DATE/TIME: 05/13/2019 2:43 pm REASON FOR STUDY: dyspnea COMPARISON: Chest x-ray 05/09/2019. EXAM PARAMETERS: NUMBER OF VIEWS: One view. TECHNIQUE: Single frontal radiographic view of the chest acquired. RADIATION DOSE: NA LIMITATIONS: Patient positioning. FINDINGS: LUNGS AND PLEURA: The left costophrenic angle is partially excluded from the [id number] . There are bilateral perihilar airspace opacities. There is a small right pleural effusion. No pn eumothorax. MEDIASTINUM AND HILAR STRUCTURES: No masses. Contour normal. HEART AND VASCULAR STRUCTURES: The heart is not enlarged. There is mild central vascular congestion. BONES: No acute findings. HARDWARE: None in the chest. IMPRESSION: Bilateral perihilar airspace opacities, may be secondary to pulmonary edema and/or pneum onia. Small right pleural effusion. Mild central vascular congestion. TECHNICAL DOCUMENTATION: JOB ID: [id number] [place]-[id number] 2010 [employer]- All Rights Reserved Reading location - IP/workstation name: [email or web address]
[2019-05-13] MEDS ORDERED: CEFEPIME 2 GM/D5W RTU 2 GM/50 ML RTUPB IV ONE (15:13)
[2019-05-13] MEDS ORDERED: NORMAL SALINE 1000 ML 1,000 ML IV PRN (15:54)
[2019-05-13] MEDS ORDERED: ACETAMINOPHEN 325 MG TABLET PO PRN (15:54)
[2019-05-13] MEDS ORDERED: ONDANSETRON HCL INJ/PF 4 MG/2 ML SDV IV PRN (15:54)
[2019-05-13 16:03] LABS: HEMATOCRIT 35.8 % (37.9-51.0); HEMOGLOBIN 11.5 g/dL (13.5-17.0); MEAN CORPUSCULAR HEMOGLOBIN 31.4 pg (27.0-33.4); MEAN CORPUSCULAR HGB CONC 32.2 g/dL (32.0-36.0); PLATELET COUNT 222 10^3/uL (150-450); RED BLOOD COUNT 3.67 10^6/uL (4.35-5.55); RED CELL DISTRIBUTION WIDTH 17.1 % (11.5-14.0); WHITE BLOOD COUNT 9.8 10^3/uL (4.0-10.5)
[2019-05-13] MEDS ORDERED: DEXTROSE 50%-WATER 25 GM/50 ML DISP.SYRIN IV PRN ×2 (16:04)
[2019-05-13] MEDS ORDERED: GLUCAGON,HUMAN RECOMB 1 MG INJ IM PRN (16:04)
[2019-05-13] MEDS ORDERED: DEXTROSE 40% GEL 15 GM TUBE PO PRN ×2 (16:04)
[2019-05-13 16:15] LABS: MEAN CORPUSCULAR VOLUME 98 fl (80-97)
[2019-05-13 16:30] LABS: ABSOLUTE LYMPHOCYTES# (MANUAL) 1.5 10^3/uL (0.5-4.7); ABSOLUTE MONOCYTES # (MANUAL) 1.4 10^3/uL (0.1-1.4); ANISOCYTOSIS 2+; BASOPHILS % (MANUAL) 0 % (0-2); EOSINOPHILS % (MANUAL) 0 % (0-6); LYMPHOCYTES % (MANUAL) 15 % (13-45); MONOCYTES % (MANUAL) 14 % (3-13); NUCLEATED RED BLOOD CELLS 3 /100 WBC (0); SEGMENTED NEUTROPHILS % (MAN) 71 % (42-78); TOTAL CELLS COUNTED 100
[2019-05-13 16:31] LABS: PLATELET COMMENT ADEQUATE; POLYCHROMASIA SLIGHT
--- NOTE | 2019-05-13 16:34 | CRITICAL CARE ADMISSION REPORT ---
HPI Date:: 05/13/19 Time:: 15:30 Reason for ICU Reason:: Need for possible intubation HPI: This patient is a 68yo man with severe COPD. Still smoking. Left AMA 10 days ago who returns with SOB X 1 day. Not feeling well for several, in bed with poor PO intake last 2 days. EMS called to home where his O2 saturations were 67%. He has been this low before. He also is hypercarbic by ABG with a pH 7.19. He is sleepy but awake on bipap but certainly not out of danger of intubation yet. He is also found to be in renal failure. At discharge last he was having high BUN/Cr. It is higher now. No vancomycin and Metformin will be stopped. Apparently he got markedly depressed with nicotine patch before. With recent AMA discharge, his said he went home and immediately smoked. Given the severity of COPD we will retry nicotine patch - Diagnosis/Plan (1) Acute respiratory failure with hypoxia and hypercapnia Is this a current diagnosis for this admission?: Yes Plan: PCO2 61 and pH 7.1. His bicarb is 23. He has a mixed acidosis with some contribution renally. Keep him on bipap until more awake and PCO2 is improved. (2) ARF (acute renal failure) Qualifiers: Acute renal failure type: unspecified Qualified Code(s): N17.9 - Acute kidney failure, unspecified Is this a current diagnosis for this admission?: Yes Plan: Bun 89/Cr 5.8 are the highest numbers yet giving him a mixed picture of acidosis. Will get Dr. Espinal involved tomorrow to help follow. Metformin stopped. Gentle rehydration. (3) COPD with exacerbation Is this a current diagnosis for this admission?: Yes Plan: Not wheezing but will include prednisone. (4) Type 2 diabetes mellitus Qualifiers: Diabetes mellitus terminal worker insulin use: without residential use Diabetes mellitus complication status: without complication Qualified Code(s): E11.9 - Type 2 diabetes mellitus without complications Is this a current diagnosis for this admission?: Yes Plan: Sliding scale insulin. Metformin stopped. Watch sugars on prednisone. (5) Hyperkalemia, diminished renal excretion Is this a current diagnosis for this admission?: Yes Plan: This should improve with resolving of acidosis. - . Plan Summary: Use bipap overnight. Hope to down grade tomorrow. Hydration, repeat labs for BMP in AM. Nicotine patch. Past Medical History Cardiac Medical History: Reports: Atrial Fibrillation, Congestive Heart Failure, Coronary Artery Disease, Myocardial Infarction, Hyperlipidema Denies: DVT, Hypertension, Pulmonary Embolism Pulmonary Medical History: Reports: Chronic Obstructive Pulmonary Disease (COPD), Intubation, Respiratory Failure Denies: Asthma, Bronchitis, Pneumonia Neurological Medical History: Denies: Seizures Endocrine Medical History: Reports: Diabetes Mellitus Type 2 Denies: Diabetes Mellitus Type 1, Hyperthyroidism, Hypothyroidism GI Medical History: Denies: Cirrhosis, Crohn's Disease, Hepatitis, Ulcerative Colitis - 2 admissions Musculoskeltal Medical History: Denies: Arthritis, Gout Skin Medical History: Denies: Eczema, Psoriasis Psychiatric Medical History: Denies: Depression Hematology: Denies: Anemia, Bleeding Tendencies Past Surgical History Past Surgical History: Reports: Other - Bilateral chest tubes on recent hospitalization Social/Family History - Social History Smoking Status: Current Some Day Smoker Frequency of Alcohol Use: None Hx Recreational Drug Use: No Drugs: None Hx Prescription Drug Abuse: No - Medication/Allergies Home Medications: Amlodipine Besylate [Norvasc 10 mg Tablet] 10 mg PO DAILY 04/19/19 Apixaban [Eliquis 2.5 mg Tablet] 2.5 mg PO BID 04/19/19 Atorvastatin Calcium [Lipitor 40 mg Tablet] 40 mg PO QHS 04/19/19 Gabapentin [Neurontin 300 mg Capsule] 300 mg PO BID 04/19/19 Insulin Glargine,Hum.rec.anlog [Lantus Insulin 100 Unit/1 ml 10 ml] 15 unit SUBCUT DAILY 04/19/19 Metformin HCl 500 mg PO BID 04/19/19 Metoprolol Tartrate [Lopressor 50 mg Tablet] 50 mg PO Q12 04/19/19 Furosemide [Lasix 40 mg Tablet] 40 mg PO QAM #15 tablet 04/20/19 Nitroglycerin [Nitrostat 0.4 mg (1/150 Gr) Tabs 25/Bottle] 1 tab SL Q5MP PRN #25 tab.subl 04/20/19 Isosorbide Mononitrate [Imdur 60 mg Tablet.er] 60 mg PO DAILY 04/30/19 Allergies/Adverse Reactions: No Known Allergies Allergy (Verified 04/19/19 00:42) Review of Systems Constitutional: PRESENT: headache(s). ABSENT: chills, fever(s), weight gain, weight loss Eyes: PRESENT: as per HPI Ears: ABSENT: hearing changes Cardiovascular: ABSENT: chest pain, dyspnea on exertion, edema, orthropnea, palpitations Respiratory: PRESENT: as per HPI, dyspnea Gastrointestinal: ABSENT: abdominal pain, constipation, diarrhea, hematemesis, hematochezia, nausea, vomiting Genitourinary: ABSENT: dysuria, hematuria Musculoskeletal: ABSENT: joint swelling Integumentary: ABSENT: rash, wounds Neurological: ABSENT: abnormal gait, abnormal speech, confusion, dizziness, focal weakness, syncope Psychiatric: ABSENT: anxiety, depression, homidical ideation, suicidal ideation Endocrine: ABSENT: cold intolerance, heat intolerance, polydipsia, polyuria Hematologic/Lymphatic: ABSENT: easy bleeding, easy bruising Physical Exam Vital Signs: Temp Pulse Resp BP Pulse Ox 97.8 F 21 H 114/54 L 98 05/13/19 14:13 05/13/19 15:32 05/13/19 15:32 05/13/19 15:32 Intake & Output 05/12/19 05/13/19 05/14/19 06:59 06:59 06:59 Weight 93.7 kg Weight/Height Weight 93.7 kg Height 6 ft General appearance: PRESENT: no acute distress, well-developed, well-nourished Exam: Sleepy Head exam: PRESENT: atraumatic, normocephalic Eye exam: PRESENT: conjunctiva pink, EOMI, PERRLA. ABSENT: scleral icterus Ear exam: PRESENT: normal external ear exam Mouth exam: PRESENT: moist, tongue midline Neck exam: PRESENT: carotid bruit, full ROM. ABSENT: JVD, lymphadenopathy, thyromegaly Respiratory exam: PRESENT: clear to auscultation zachariah, decreased breath sounds, prolonged expiratory phas Cardiovascular exam: PRESENT: RRR. ABSENT: diastolic murmur, rubs, systolic murmur Pulses: PRESENT: normal dorsalis pedis pul Vascular exam: PRESENT: normal capillary refill GI/Abdominal exam: PRESENT: normal bowel sounds, soft. ABSENT: distended, guarding, mass, organolmegaly, rebound, tenderness Rectal exam: PRESENT: deferred Extremities exam: PRESENT: full ROM. ABSENT: calf tenderness, clubbing, pedal edema Neurological exam: PRESENT: alert, awake, oriented to person, oriented to place, oriented to time, oriented to situation, CN II-XII grossly intact, other - Sleepy. ABSENT: motor sensory deficit Psychiatric exam: PRESENT: appropriate affect, normal mood. ABSENT: homicidal ideation, suicidal ideation Skin exam: PRESENT: dry, intact, warm. ABSENT: cyanosis, rash Laboratory/Radiographs Laboratory Results: 05/13/19 12:55 05/13/19 05/13/19 05/13/19 12:55 12:55 13:35 WBC Cancelled RBC Cancelled Hgb Cancelled Hct Cancelled MCV Cancelled MCH Cancelled MCHC Cancelled RDW Cancelled Plt Count Cancelled Seg Neutrophils % Cancelled Carbonic Acid 1.81 H HCO3/H2CO3 Ratio 12:1 ABG pH 7.19 L* ABG pCO2 60.2 H ABG pO2 69.3 L ABG HCO3 22.2 ABG O2 Saturation 89.1 L ABG Base Excess -6.5 FiO2 3L Sodium 141.6 Potassium 5.4 H Chloride 104 Carbon Dioxide 23 Anion Gap 15 BUN 83 H Creatinine 5.81 H Est GFR ( Amer) 12 L Glucose 96 Calcium 8.8 Total Bilirubin 0.4 AST 72 H Alkaline Phosphatase 95 Total Protein 6.3 Albumin 3.6 05/13/19 12:55 Troponin I 0.445 NT-Pro-B Natriuret Pep 60597 H Impressions: Chest X-Ray 05/13/19 13:36 IMPRESSION: Bilateral perihilar airspace opacities, may be secondary to pulmonary edema and/or pneumonia. Small right pleural effusion. Mild central vascular congestion. Head CT 05/13/19 13:37 IMPRESSION: NO ACUTE INTRACRANIAL IMAGING FINDINGS. EVIDENCE OF ACUTE STROKE: NO. All labs, radiographs, diagnostic studies and EKGs were personally reviewed: Yes In addition, reports of radiographic and diagnostic studies were read: Yes Critical Time Critical Time (minutes): 40 -: The care of a critically ill patient is dynamic. This note represents a static moment in the admission process. orders and treatments may be given simulataneously and urgentl, and time is not sales representative jewelry of the treatment process. This patient requires Critical Care secondary to life threating organ or limb dysfunction. Without the need for Critical Care services, the patient is at risk for increasid mortality and morbidity.
[2019-05-13] MEDS ORDERED: NICOTINE 21 MG/24 HR PATCH.TD24 TD ONE (17:00)
[2019-05-13] MEDS ORDERED: HEPARIN SOD (PORCINE) 5,000 UNIT/ML 1 ML VIAL SUBCUT SCH (18:00)
[2019-05-13] MEDS ORDERED: INFLUENZA QUAD (6MOS+) 2019-20 VAC 0.5 ML SYR IM ONE (18:41)
[2019-05-13] MEDS: INSULIN REG, HUMAN 100 UNIT/ML 3 ML VIAL (PYX) SUBCUT SCH (19:16)
[2019-05-13 22:07] LABS: ARTERIAL BLOOD BASE EXCESS -3.1 mmol/L; ARTERIAL BLOOD FIO2 28%; ARTERIAL BLOOD H2CO3 1.55 mmol/L (1.05-1.35); ARTERIAL BLOOD HCO3 23.9 mmol/L (20-24); ARTERIAL BLOOD O2 SATURATION 88.8 % (94-98); ARTERIAL BLOOD PCO2 51.4 mmHg (35-45); ARTERIAL BLOOD PH 7.29 (7.35-7.45); ARTERIAL BLOOD PO2 62.1 mmHg (80-100); ARTERIAL BLOOD TOTAL CO2 25.5 mmol/L (23-27)
--- NOTE | 2019-05-13 22:18 | EKG REPORT ---
SEVERITY:- OTHERWISE NORMAL ECG - SINUS RHYTHM LOW VOLTAGE IN FRONTAL LEADS : Confirmed by: Simran Sanchez MD 13-May-2019 22:18:26
[2019-05-13] MEDS: HEPARIN SOD (PORCINE) 5,000 UNIT/ML 1 ML VIAL SUBCUT SCH (22:20)
[2019-05-14 05:03] LABS: ABSOLUTE BASOPHILS # (AUTO) 0.1 10^3/uL (0.0-0.2); ABSOLUTE EOSINOPHILS # (AUTO) 0.1 10^3/uL (0.0-0.6); ABSOLUTE LYMPHOCYTES (AUTO) 2.5 10^3/uL (0.5-4.7); ABSOLUTE MONOCYTES (AUTO) 1.1 10^3/uL (0.1-1.4); ABSOLUTE NEUT (AUTO) 4.5 10^3/uL (1.7-8.2); BASOPHILS % (AUTO) 1.2 % (0-2); EOSINOPHILS % (AUTO) 1.8 % (0-6); HEMATOCRIT 32.8 % (37.9-51.0); HEMOGLOBIN 10.7 g/dL (13.5-17.0); LYMPHOCYTES % (AUTO) 29.8 % (13-45); MEAN CORPUSCULAR HEMOGLOBIN 31.3 pg (27.0-33.4); MEAN CORPUSCULAR HGB CONC 32.6 g/dL (32.0-36.0); MEAN CORPUSCULAR VOLUME 96 fl (80-97); MONOCYTES % (AUTO) 12.8 % (3-13); PLATELET COUNT 210 10^3/uL (150-450); RED BLOOD COUNT 3.42 10^6/uL (4.35-5.55); RED CELL DISTRIBUTION WIDTH 16.5 % (11.5-14.0); SEGMENTED NEUTROPHILS % (AUTO) 54.4 % (42-78); TOTAL CELLS COUNTED % (AUTO) 100 %; WHITE BLOOD COUNT 8.2 10^3/uL (4.0-10.5)
[2019-05-14 05:34] LABS: ANION GAP 11 (5-19); BLOOD UREA NITROGEN 87 mg/dL (7-20); CALCIUM 8.2 mg/dL (8.4-10.2); CARBON DIOXIDE 21 mmol/L (22-30); CHLORIDE 109 mmol/L (98-107)
[2019-05-14 05:45] LABS: GLUCOSE 66 mg/dL (75-110)
[2019-05-14] MEDS: INSULIN REG, HUMAN 100 UNIT/ML 3 ML VIAL (PYX) SUBCUT SCH ×4 (06:10→23:29)
[2019-05-14] MEDS: HEPARIN SOD (PORCINE) 5,000 UNIT/ML 1 ML VIAL SUBCUT SCH ×3 (06:27→21:07)
[2019-05-14] MEDS: DEXTROSE 5%-NORMAL SALINE 1,000 ML IV PRN ×2 (06:39→17:15)
[2019-05-14 13:06] LABS: APPEARANCE,URINE CLEAR; BILIRUBIN,URINE NEGATIVE (NEGATIVE); COLOR,URINE YELLOW; GLUCOSE, URINE NEGATIVE (NEGATIVE); KETONES,URINE NEGATIVE (NEGATIVE); LEUKOCYTE ESTERASE,URINE NEGATIVE (NEGATIVE); NITRITE,URINE NEGATIVE (NEGATIVE); PROTEIN,URINE 30 mg/dL (NEGATIVE); URINE SPECIFIC GRAVITY 1.012; UROBILINOGEN,URINE NEGATIVE mg/dL (<2.0)
[2019-05-14 16:12] LABS: ARTERIAL BLOOD BASE EXCESS -2.7 mmol/L; ARTERIAL BLOOD HCO3 24.9 mmol/L (20-24); ARTERIAL BLOOD O2 SATURATION 87.7 % (94-98); ARTERIAL BLOOD PCO2 56.4 mmHg (35-45); ARTERIAL BLOOD PH 7.26 (7.35-7.45); ARTERIAL BLOOD PO2 61.5 mmHg (80-100); ARTERIAL BLOOD TOTAL CO2 26.6 mmol/L (23-27)
[2019-05-14 16:13] LABS: ARTERIAL BLOOD FIO2 5L
--- NOTE | 2019-05-14 16:23 | PDOC CRITICAL CARE PROG REPORT ---
General Date:: 05/14/19 ICU Day:: 2 Ventilator Day:: 0 Hospital Day:: 2 Events in the past 12 to 24 Hours:: Patient had been placed on BiPAP for hypercarbia and metabolic acidosis associated with renal failure. His morning he is subjectively improved and he was transitioned to nasal cannula. He remains hemodynamically stable Review of systems relevant to events:: Patient discloses that he is not on home oxygen therapy. Also discloses that on his last admission, when he left AGAINST MEDICAL ADVICE, he was quite anxious and was not sure why he did this. Patient was taken off of BiPAP late this morning and has been on nasal cannula. He denies shortness of breath and has had no neurological changes. He is awake alert and situationally aware. There is been no chest pain or shortness of breath. He has had minimal urine output and bladder scan revealed increased bladder volume. A Ramirez was placed revealing greater than 500 cc of urine. He was seen by the nephrology service. No requirement for dialysis. Reason for ICU Addmission:: For cardiac and metabolic acidosis with acute exacerbation of COPD related to hypoxic and hypercarbic respiratory failure - Medications: Medications reviewed and adjusted accordingly: Yes Vasopressors:: None Sedation:: None Physical Exam Vital Signs: Temp Pulse Resp BP Pulse Ox 97.2 F 61 22 H 128/54 H 88 L 05/14/19 14:00 05/14/19 14:00 05/14/19 14:00 05/14/19 14:00 05/14/19 14:00 Intake & Output 05/13/19 05/14/19 05/15/19 06:59 06:59 06:59 Intake Total 1050 118 Output Total 0 750 Balance 1050 -632 Weight 91 kg Weight/Height Weight 91 kg Height 6 ft General appearance: PRESENT: no acute distress, cooperative, well-developed, well-nourished Exam: Nontoxic 68-year-old white male evaluated while on BiPAP and off BiPAP. Head exam: PRESENT: atraumatic, normocephalic Eye exam: PRESENT: conjunctiva pink, EOMI, PERRLA. ABSENT: conjunctival injection, nystagmus, scleral icterus Ear exam: PRESENT: normal external ear exam Mouth exam: PRESENT: dry mucosa, neck supple Neck exam: ABSENT: carotid bruit, JVD, lymphadenopathy, tenderness, thyromegaly, tracheal deviation Respiratory exam: PRESENT: decreased breath sounds - At bases. Right > left, unlabored. ABSENT: accessory muscle use, tachypnea Cardiovascular exam: PRESENT: RRR, +S1, +S2. ABSENT: gallop, systolic murmur, tachycardia Pulses: PRESENT: +2 pedal pulses bilateral Vascular exam: PRESENT: normal capillary refill GI/Abdominal exam: PRESENT: normal bowel sounds, soft. ABSENT: ascites, distended, firm, guarding, mass, Deleon's sign, organolmegaly, rebound, rigid, tenderness Gentrourinary exam: PRESENT: indwelling catheter Extremities exam: ABSENT: pedal edema, tenderness Musculoskeletal exam: PRESENT: normal inspection. ABSENT: deformity, dislocation Neurological exam: PRESENT: alert, awake, oriented to person, oriented to place, oriented to time, oriented to situation, CN II-XII grossly intact. ABSENT: motor sensory deficit Psychiatric exam: PRESENT: appropriate affect Focused psych exam: ABSENT: psychomotor agitation, restlessness Skin exam: PRESENT: dry, intact, normal color. ABSENT: cyanosis, erythema, jaundice, mottled, pallor, petechiae, urticaria, vesicles Tubes/Lines: ABSENT: Endotracheal Tube, Chest Tube, Central Line, Arterial Catheter, Dialysis catheter - Ramirez catheter now, Peg Tube, Nasogastic Tube, Other Laboratory/Radiographs Laboratory Results: 05/14/19 04:35 05/14/19 04:35 05/13/19 05/13/19 05/14/19 15:18 21:58 04:35 WBC 9.8 8.2 RBC 3.67 L 3.42 L Hgb 11.5 L 10.7 L Hct 35.8 L 32.8 L MCV 98 H D 96 MCH 31.4 31.3 MCHC 32.2 32.6 RDW 17.1 H 16.5 H Plt Count 222 210 Seg Neutrophils % Not Reportable 54.4 Carbonic Acid 1.55 H HCO3/H2CO3 Ratio 15:1 ABG pH 7.29 L ABG pCO2 51.4 H ABG pO2 62.1 L ABG HCO3 23.9 ABG O2 Saturation 88.8 L ABG Base Excess -3.1 FiO2 28% Sodium Potassium Chloride Carbon Dioxide Anion Gap BUN Creatinine Est GFR ( Amer) Glucose Calcium Urine Color Urine Appearance Urine pH Ur Specific [place] Urine Protein Urine Glucose (UA) Urine Ketones Urine Blood Urine Nitrite Ur Leukocyte Esterase Urine WBC (Auto) Urine RBC (Auto) 05/14/19 05/14/19 04:35 11:32 WBC RBC Hgb Hct MCV MCH MCHC RDW Plt Count Seg Neutrophils % Carbonic Acid HCO3/H2CO3 Ratio ABG pH ABG pCO2 ABG pO2 ABG HCO3 ABG O2 Saturation ABG Base Excess FiO2 Sodium 141.3 Potassium 5.0 Chloride 109 H Carbon Dioxide 21 L Anion Gap 11 BUN 87 H Creatinine 5.30 H Est GFR ( Amer) 13 L Glucose 66 L Calcium 8.2 L Urine Color YELLOW Urine Appearance CLEAR Urine pH 5.0 Ur Specific [place] 1.012 Urine Protein 30 H Urine Glucose (UA) NEGATIVE Urine Ketones NEGATIVE Urine Blood SMALL H Urine Nitrite NEGATIVE Ur Leukocyte Esterase NEGATIVE Urine WBC (Auto) 3 Urine RBC (Auto) 1 05/13/19 12:55 Troponin I 0.445 NT-Pro-B Natriuret Pep 02204 H Impressions: Chest X-Ray 05/13/19 13:36 IMPRESSION: Bilateral perihilar airspace opacities, may be secondary to pulmonary edema and/or pneumonia. Small right pleural effusion. Mild central vascular congestion. Head CT 05/13/19 13:37 IMPRESSION: NO ACUTE INTRACRANIAL IMAGING FINDINGS. EVIDENCE OF ACUTE STROKE: NO. All labs, radiographs, diagnostic studies and EKGs were personally reviewed: Yes In addition, reports of radiographic and diagnostic studies were read: Yes Assessment and Plan - Diagnosis (1) Acute respiratory failure with hypoxia and hypercapnia Is this a current diagnosis for this admission?: Yes Plan: Improving (2) Acute and chronic respiratory failure ([id number]) Qualifiers: Respiratory failure complication: hypoxia and hypercapnia Qualified Code(s): J96.21 - Acute and chronic respiratory failure with hypoxia; J96.22 - Acute and chronic respiratory failure with hypercapnia Is this a current diagnosis for this admission?: Yes Plan: Will need night time Bipap, improving acute situation (3) Acute on chronic renal failure Qualifiers: Acute renal failure type: with other specified pathological lesion Chronic kidney disease stage: stage 5, not on chronic dialysis Qualified Code(s): N17.8 - Other acute kidney failure; N18.5 - Chronic kidney disease, stage 5 Is this a current diagnosis for this admission?: Yes Plan: with urinary outlet obstruction. (4) Acute metabolic encephalopathy Is this a current diagnosis for this admission?: Yes Plan: Resolved (5) Acute retention of urine Is this a current diagnosis for this admission?: Yes (6) Mild pulmonary arterial systolic hypertension Is this a current diagnosis for this admission?: Yes Plan: Prior to admission. Had PA catheter last admission showing MAP >25. PAPs elevated in upper 30-40 mmHg (7) COPD exacerbation Is this a current diagnosis for this admission?: Yes Plan: Improved. Add steroids (8) Pleural effusion on right Is this a current diagnosis for this admission?: Yes Plan: Previous and present on admission Plan Summary: Patient has improved and has been weaned down to nasal cannula oxygen. Will order baseline ABG on this nasal cannula. The patient has acute urinary outlet obstruction. There is a strong concern that this is been chronic and ongoing. This may be the reason for his transition to CKD 4-5. The patient examines for dehydration. Have provided IV fluids and will follow his creatinine with this. He has had a slow insidious decline in his GFR and review of his records. In review of his last admission patient had a pulmonary artery catheter placed. He does fulfill criteria for mild pulmonary hypertension. I reviewed his CT scan which did show a pleural effusion. The pleural effusion appears to be transudate of based on light's criteria. He has a small effusion on chest x-ray this time but not significant. Will evaluate with ultrasound. His pulmonary hypertension would be related to his COPD which places him at the who class III classification. No treatment other than supportive care at this point would be required. The patient continues to smoke despite his advanced COPD. Discussed his case and smoking with him for an extended period of time. He is not a candidate for home oxygen if he continues to smoke and this has been discussed. Will provide BiPAP at night and as needed for any respiratory distress or any CO2 narcosis. Continue to provide supportive care with in the ICU. Have started nicotine placement patch. Follow urine analysis. Critical Time Critical Time (minutes): 60 Level of Care: ICU Smoking Cessation Education: over 10 minutes Anticipated discharge: Home with Homehealth -: 1. The care of a critical patient is a dynamic process. This note is a field sales representative synopsis but static in nature. The timeframe for treatments given in order is not necessary the actual time these treatments may have been done. 2. This patient requires critical care secondary to ongoing requirements for therapy not offered or safe outside the critical care environment. Transfer to a lower level of care with altered life or limb morbidity and mortality. 3. Multidisciplinary rounds completed. 4. ABCDE bundle addressed. 5. MPOA: 6. Code Status: TBD
[2019-05-14] MEDS: METHYLPREDNISOLONE INJ 40 MG/1 ML SDV IV SCH (17:10)
--- NOTE | 2019-05-14 20:53 | PDOC CONSULTATION ---
Consultation Consult Date: 05/14/19 Provider Consulted: ALYSON SANDERS History of Present Illness Admission Date/PCP: 05/13/19 16:33 REYNA PENN MD History of Present Illness: JOSE GARCIA is a 68 year old gentleman with history of congestive heart failure, COPD, hypertension who was admitted yesterday because of shortness of breath. Patient signed out AMA last admission, about 10 days ago when he had congestive heart failure and also acute on chronic kidney disease. Patient was brought in by the EMS and found to have oxygen saturation of 67% and has been drowsy. Initial ABG also showed hypercarbia with pH of 7.19 and PCO2 of 61. Patient was then treated initially with BiPAP. He was also found to have olga vated BUN of 83, creatinine of 5.81, EGFR of 10 with potassium of 5.4 yesterday. He was also started on some IV fluids. Initial head CT was negative. Initial chest x-ray showed pulmonary vascular congestion small pleural effusion. According to the patient's at bedside, when he got home after last admission he was doing okay for a while but then he went downhill. For the past 2 days the states that the patient is just lying down in bed. She reports that the patient has poor oral intake and is not really drinking much although the patient himself said that he is drinking 2-3 bottles of water and 2 to 3 cups of coffee but denies this. Patient also reports some diarrhea for the past 3 days, and not eating much for the past 24 hours. Yesterday he was very weak and they both state that he could not hold his head up. He also reports that his urine output has decreased for the last 2 days. Patient has urinary urgency but could not really pass urine much especially for the last 24 hours. His urine output is close to none since admission. Patient denies any history o f BPH. He denies any nausea, no vomiting no chest pains. Last admission the patient's creatinine was around 4's. Prior to leaving AMA his last creatinine was 3.36. Review of records here in the hospital showed that his kidney function has been fluctuating for the last couple of months. We got records from his primary care provider, and on January 03, 2019 he had a BUN of 44, creatinine of 2.01 with EGFR of 33. Admitting kidney function was as above. Today he had a BUN of 87, creatinine of 5.3 and EGFR of 11. While I was here in [facility], bladder scan was done which indicates that he urine 587 mL in the bladder. A kidney ultrasound done on 03/22/2019 showed a right kidney measuring about 10.4 cm, left kidney 11.3 cm without hydronephrosis but there was a note of increased cortical echogenicity. Past Medical History Cardiac Medical History: Reports: Atrial Fibrillation, CHF-Diastolic, Coronary Artery Disease, Hyperlipidemia, Hypertension-primary, Myocardial Infarction Pulmonary Medical History: Reports: Chronic Obstructive Pulmonary Disease (COPD), Intubation, Pneumonia, Respiratory Failure Endocrine Medical History: Reports: Diabetes Mellitus Type 2 Renal/ Medical History: Reports: Chronic Kidney Disease Stage III Psychiatric Medical History: Reports: General Anxiety Disorder, Tobacco Dependency, Other - Panic attacks Past Surgical History Past Surgical History: Reports: Other - Bilateral chest tubes on recent hospitalization Social History Information Source: Patient, Relative Smoking Status: Current Every Day Smoker - states that the patient quit smoking for 14 weeks but after going home last admission here he restarted smoking again Electronic Cigarette use?: No Frequency of Alcohol Use: None Hx Recreational Drug Use: No Drugs: None Hx Prescription Drug Abuse: No Family History Family History: DM - Mother, Hypertension - Mother Parental Family History Reviewed: Yes Children Family History Reviewed: NA Sibling(s) Family History Reviewed.: Yes Medication/Allergy Home Medications: Amlodipine Besylate [Norvasc 10 mg Tablet] 10 mg PO DAILY 05/14/19 Apixaban [Eliquis 5 mg Tablet] 5 mg PO Q12 05/14/19 Atorvastatin Calcium [Lipitor 40 mg Tablet] 40 mg PO QHS 05/14/19 Ferrous Sulfate [Feosol 325 mg Tablet] 325 mg PO DAILY 05/14/19 Furosemide [Lasix 40 mg Tablet] 40 mg PO DAILY 05/14/19 Gabapentin [Neurontin 300 mg Capsule] 300 mg PO Q12 05/14/19 Hydralazine HCl [Apresoline 10 mg Tablet] 10 mg PO BID 05/14/19 Insulin Glargine,Hum.rec.anlog [Lantus Insulin 100 Unit/1 ml 10 ml] 15 units SQ DAILY 05/14/19 Isosorbide Mononitrate [Imdur 60 mg Tablet.er] 60 mg PO DAILY 05/14/19 Metformin HCl [Glucophage 500 mg Tablet] 1,000 mg PO BID 05/14/19 Metoprolol Tartrate [Lopressor 50 mg Tablet] 50 mg PO Q12 05/14/19 Nitroglycerin [Nitrostat 0.4 mg (1/150 Gr) Tabs 25/Bottle] 0.4 mg SL Q5MP PRN 05/14/19 Allergies/Adverse Reactions: No Known Allergies Allergy (Verified 04/19/19 00:42) Review of Systems All systems: reviewed and no additional remarkable complaints except as stated Review of Systems: Constitutional: ABSENT: chills, fever(s), headache(s), weight gain, weight loss; admits weakness Eyes: ABSENT: visual disturbances Ears: ABSENT: hearing changes Cardiovascular: ABSENT: chest pain, edema, orthropnea, palpitations; admits dyspnea on exertion Respiratory: ABSENT: Hemoptysis; admits dyspnea and nonproductive cough Gastrointestinal: ABSENT: abdominal pain, constipation, hematemesis, hematochez ia, nausea, vomiting; admits diarrhea Genitourinary: ABSENT: dysuria, hematuria; admits to decreased urine output Musculoskeletal: ABSENT: joint swelling Integumentary: ABSENT: rash, wounds Neurological: ABSENT: abnormal gait, abnormal speech, confusion, dizziness, focal weakness, numbness, syncope Psychiatric: ABSENT: Depression; DM panic attacks Endocrine: ABSENT: cold intolerance, heat intolerance, polydipsia, polyuria Hematologic/Lymphatic: ABSENT: easy bleeding, easy bruising, lymphadenopathy Physical Exam Vital Signs: Temp Pulse Resp BP Pulse Ox 97.6 F 95 21 H 135/50 H 93 05/14/19 08:00 05/14/19 10:00 05/14/19 10:02 05/14/19 10:02 05/14/19 10:02 Intake & Output 05/13/19 05/14/19 05/15/19 06:59 06:59 06:59 Intake Total 1050 118 Output Total 0 0 Balance 1050 118 Weight 91 kg Exam: General appearance: No acute distress, cooperative, well-developed, well- nourished Head exam: PRESENT: atraumatic, normocephalic Eye exam: PRESENT: Conjunctiva pale k, EOMI, PERRLA. ABSENT: conjunctival injection, scleral icterus Mouth exam: PRESENT: moist, neck supple, tongue midline Neck exam: PRESENT: full ROM. ABSENT: carotid bruit, JVD, lymphadenopathy, t hyromegaly Respiratory exam: PRESENT: Diminished to auscultation bilaterally. Minimal basal crackles more in the right than the left ABSENT: rhonchi, stridor, wheezes Cardiovascular exam: PRESENT: Irregularly irregular, +S1, +S2. ABSENT: systolic murmur Pulses: PRESENT: normal radial pulses, normal dorsalis pedis pulses GI/Abdominal exam: PRESENT: normal bowel sounds, soft. Palpable full bladder ABSENT: guarding, mass, tenderness Rectal exam: Deferred Extremities exam: PRESENT: full ROM. Trace bilateral pitting edema ABSENT: calf tenderness Musculoskeletal: PRESENT: full ROM. ABSENT: deformity Neurological exam: PRESENT: alert, Awake, Oriented to person, Oriented to place, Oriented to time, reflexes normal, CN II-XII grossly intact. ABSENT: motor sensory deficit Psychiatric exam: PRESENT: appropriate affect, normal mood. ABSENT: homicidal ideation, suicidal ideation Skin exam: PRESENT: intact, dry, warm. ABSENT: rash Results Laboratory Results: 05/14/19 04:35 05/14/19 04:35 05/13/19 05/13/19 05/13/19 12:55 12:55 13:35 WBC Cancelled RBC Cancelled Hgb Cancelled Hct Cancelled MCV Cancelled MCH Cancelled MCHC Cancelled RDW Cancelled Plt Count Cancelled Seg Neutrophils % Cancelled Carbonic Acid 1.81 H HCO3/H2CO3 Ratio 12:1 ABG pH 7.19 L* ABG pCO2 60.2 H ABG pO2 69.3 L ABG HCO3 22.2 ABG O2 Saturation 89.1 L ABG Base Excess -6.5 FiO2 3L Sodium 141.6 Potassium 5.4 H Chloride 104 Carbon Dioxide 23 Anion Gap 15 BUN 83 H Creatinine 5.81 H Est GFR ( Amer) 12 L Glucose 96 Calcium 8.8 Total Bilirubin 0.4 AST 72 H Alkaline Phosphatase 95 Total Protein 6.3 Albumin 3.6 05/13/19 05/13/19 05/14/19 15:18 21:58 04:35 WBC 9.8 8.2 RBC 3.67 L 3.42 L Hgb 11.5 L 10.7 L Hct 35.8 L 32.8 L MCV 98 H D 96 MCH 31.4 31.3 MCHC 32.2 32.6 RDW 17.1 H 16.5 H Plt Count 222 210 Seg Neutrophils % Not Reportable 54.4 Carbonic Acid 1.55 H HCO3/H2CO3 Ratio 15:1 ABG pH 7.29 L ABG pCO2 51.4 H ABG pO2 62.1 L ABG HCO3 23.9 ABG O2 Saturation 88.8 L ABG Base Excess -3.1 FiO2 28% Sodium Potassium Chloride Carbon Dioxide Anion Gap BUN Creatinine Est GFR ( Amer) Glucose Calcium Total Bilirubin AST Alkaline Phosphatase Total Protein Albumin 05/14/19 04:35 WBC RBC Hgb Hct MCV MCH MCHC RDW Plt Count Seg Neutrophils % Carbonic Acid HCO3/H2CO3 Ratio ABG pH ABG pCO2 ABG pO2 ABG HCO3 ABG O2 Saturation ABG Base Excess FiO2 Sodium 141.3 Potassium 5.0 Chloride 109 H Carbon Dioxide 21 L Anion Gap 11 BUN 87 H Creatinine 5.30 H Est GFR ( Amer) 13 L Glucose 66 L Calcium 8.2 L Total Bilirubin AST Alkaline Phosphatase Total Protein Albumin 05/13/19 12:55 Troponin I 0.445 NT-Pro-B Natriuret Pep 09310 H Impressions: Chest X-Ray 05/13/19 13:36 IMPRESSION: Bilateral perihilar airspace opacities, may be secondary to p ulmonary edema and/or pneumonia. Small right pleural effusion. Mild central vascular congestion. Head CT 05/13/19 13:37 IMPRESSION: NO ACUTE INTRACRANIAL IMAGING FINDINGS. EVIDENCE OF ACUTE STROKE: NO. Assessment & Plan - Diagnosis (1) Acute kidney injury superimposed on chronic kidney disease Is this a current diagnosis for this admission?: Yes Plan: Acute worsening of the patient's kidney function is multifactorial. I do not think he has fully recovered from his acute kidney injury possibly due to congestive heart failure during last admission. This was then exacerbated by poor oral intake and possibly volume depletion and now urinary retention. Patient's hypoxic state could also contribute to acute worsening of kidney function. Patient is currently nonoliguric but requires Ramirez catheterization. There is no indication for renal replacement therapy at this time. Continue indwelling Ramirez catheter. Monitor kidney function and electrolytes. Avoid nephrotoxic medications. Adjust medication doses according to the patient's (2) Urinary retention Is this a current diagnosis for this admission?: Yes Plan: Needs indwelling Ramirez catheter for now. (3) Acute respiratory failure with hypoxia and hypercapnia Is this a current diagnosis for this admission?: Yes Plan: Managed by the diagram clerk, Dr. Kam. (4) COPD exacerbation Is this a current diagnosis for this admission?: Yes (5) Pleural effusion on right Is this a current diagnosis for this admission?: Yes (6) Anemia Qualifiers: Anemia type: iron deficiency Is this a current diagnosis for this admission?: Yes (7) Hypertension Qualifiers: Hypertension type: essential hypertension Qualified Code(s): I10 - Esse ntial (primary) hypertension Is this a current diagnosis for this admission?: Yes (8) Type 2 diabetes mellitus Qualifiers: Diabetes mellitus chcf insulin use: without chcf use Diabetes mellitus complication status: without complication Qualified Code(s): E11.9 - Type 2 diabetes mellitus without complications Is this a current diagnosis for this admission?: Yes - Notes Notes: Assessment recommendations discussed with the patient and his at bedside. Discussed the case with Dr. Pope. Thank you very much for this consultation. I will follow the patient with you. - Time Time Spent: Greater than 70 Minutes
[2019-05-15] MEDS: DEXTROSE 5%-NORMAL SALINE 1,000 ML IV PRN (03:15)
[2019-05-15 05:16] LABS: ARTERIAL BLOOD BASE EXCESS -4.1 mmol/L; ARTERIAL BLOOD H2CO3 1.51 mmol/L (1.05-1.35); ARTERIAL BLOOD HCO3 22.9 mmol/L (20-24); ARTERIAL BLOOD O2 SATURATION 90.7 % (94-98); ARTERIAL BLOOD PH 7.28 (7.35-7.45); ARTERIAL BLOOD PO2 66.7 mmHg (80-100); ARTERIAL BLOOD TOTAL CO2 24.4 mmol/L (23-27)
[2019-05-15 05:17] LABS: ARTERIAL BLOOD FIO2 5L
[2019-05-15 05:48] LABS: ABSOLUTE LYMPHOCYTES (AUTO) 0.5 10^3/uL (0.5-4.7); ABSOLUTE MONOCYTES (AUTO) 0.1 10^3/uL (0.1-1.4); ABSOLUTE NEUT (AUTO) 4.7 10^3/uL (1.7-8.2); BASOPHILS % (AUTO) 0.8 % (0-2); EOSINOPHILS % (AUTO) 0.1 % (0-6); HEMATOCRIT 35.1 % (37.9-51.0); HEMOGLOBIN 11.3 g/dL (13.5-17.0); LYMPHOCYTES % (AUTO) 9.5 % (13-45); MEAN CORPUSCULAR HEMOGLOBIN 31.1 pg (27.0-33.4); MEAN CORPUSCULAR HGB CONC 32.3 g/dL (32.0-36.0); MEAN CORPUSCULAR VOLUME 96 fl (80-97); MONOCYTES % (AUTO) 2.5 % (3-13); PLATELET COUNT 217 10^3/uL (150-450); RED BLOOD COUNT 3.64 10^6/uL (4.35-5.55); RED CELL DISTRIBUTION WIDTH 17.4 % (11.5-14.0); SEGMENTED NEUTROPHILS % (AUTO) 87.1 % (42-78); TOTAL CELLS COUNTED % (AUTO) 100 %; WHITE BLOOD COUNT 5.4 10^3/uL (4.0-10.5)
[2019-05-15] MEDS: INSULIN REG, HUMAN 100 UNIT/ML 3 ML VIAL (PYX) SUBCUT SCH ×4 (06:04→23:40)
[2019-05-15] MEDS: HEPARIN SOD (PORCINE) 5,000 UNIT/ML 1 ML VIAL SUBCUT SCH ×3 (06:05→21:45)
[2019-05-15] MEDS: METHYLPREDNISOLONE INJ 40 MG/1 ML SDV IV SCH ×2 (06:05→18:41)
[2019-05-15 06:22] LABS: ANION GAP 10 (5-19); BLOOD UREA NITROGEN 71 mg/dL (7-20); CARBON DIOXIDE 24 mmol/L (22-30); CHLORIDE 105 mmol/L (98-107); GLUCOSE 300 mg/dL (75-110); PHOSPHORUS 5.6 mg/dL (2.5-4.5); POTASSIUM 5.3 mmol/L (3.6-5.0)
--- NOTE | 2019-05-15 08:59 | RADIOLOGY REPORT (SQ) ---
EXAM DESCRIPTION: CHEST SINGLE VIEW COMPLETED DATE/TIME: 05/15/2019 6:00 am REASON FOR STUDY: Effusion with respiratory failure COMPARISON: 05/13/2019 EXAM PARAMETERS: NUMBER OF VIEWS: One view. TECHNIQUE: Single frontal radiographic view of the chest acquired. RADIATION DOSE: NA LIMITATIONS: None. FINDINGS: LUNGS AND PLEURA: Bilateral perihilar and basilar interstitial and alveolar opacities, mil dly increased at the right lung base. Small trace bilateral effusions. No pneumothorax. MEDIASTINUM AND HILAR STRUCTURES: No discrete mass. Bilateral perihilar opacities. HEART AND VASCULAR STRUCTURES: Enlarged cardiac silhouette, stable. Central vascular congestion. BONES: No acute findings. HARDWARE: None in the chest. OTHER: No other significant finding. IMPRESSION: Mildly increased bilateral perihilar and basilar opacities suggestive of edema although infection is not excluded. Small bilateral effusions. TECHNICAL DOCUMENTATION: JOB ID: [id number] [employer]- All Rights Reserved Reading location - IP/workstation name: [email or web address]
[2019-05-15] MEDS ORDERED: DEXTROSE 5%-NORMAL SALINE 1,000 ML IV PRN (09:40)
--- NOTE | 2019-05-15 09:41 | PDOC PROGRESS REPORT ---
Subjective Progress Note for:: 05/15/19 Subjective:: Patient looks much better today. He is more awake and is communicating. He said he just does not feel good because he did not sleep well last night. He states that his breathing is okay with the nasal cannula but unable to tolerate the BiPAP. He denies any chest pains. He is producing an excellent amount of urine output with the Ramirez catheter and. He made 1950 mL of urine output since insertion of Ramirez catheter yesterday. Reason For Visit: COPD EXACERBATON,ACUTE RESPIRATORY FAILURE WITH Physical Exam Vital Signs: Temp Pulse Resp BP Pulse Ox 98.8 F 75 24 H 156/65 H 98 05/15/19 08:00 05/15/19 08:00 05/15/19 08:00 05/15/19 08:00 05/15/19 08:00 Intake & Output 05/14/19 05/15/19 05/16/19 06:59 06:59 06:59 Intake Total 1050 2118 Output Total 0 1950 190 Balance 1050 168 -190 Weight 91 kg 97.7 kg Exam: General appearance: PRESENT: no acute distress, cooperative, well-developed, well-nourished Head exam: PRESENT: atraumatic, normocephalic Eye exam: PRESENT: conjunctiva pale, PERRLA. ABSENT: scleral icterus Neck exam: ABSENT: JVD Respiratory exam: PRESENT: Diminished breath sounds. ABSENT: crackles, rales, rhonchi, unlabored, wheezes Cardiovascular exam: PRESENT: Regular rate rhythm -+S1, +S2. ABSENT: diastolic murmur, systolic murmur GI/Abdominal exam: PRESENT: normal bowel sounds, soft. ABSENT: guarding, mass, tenderness Extremities exam: Trace bilateral feet edema Neurological exam: PRESENT: alert, awake, oriented to person, place and time. Skin exam: PRESENT: dry, warm, Results Laboratory Results: 05/15/19 04:42 05/15/19 04:42 05/14/19 05/14/19 05/15/19 11:32 15:55 04:42 WBC 5.4 RBC 3.64 L Hgb 11.3 L Hct 35.1 L MCV 96 MCH 31.1 MCHC 32.3 RDW 17.4 H Plt Count 217 Seg Neutrophils % 87.1 H Carbonic Acid 1.70 H HCO3/H2CO3 Ratio 14:1 ABG pH 7.26 L ABG pCO2 56.4 H ABG pO2 61.5 L ABG HCO3 24.9 H ABG O2 Saturation 87.7 L ABG Base Excess -2.7 FiO2 5L Sodium Potassium Chloride Carbon Dioxide Anion Gap BUN Creatinine Est GFR ( Amer) Glucose Calcium Phosphorus Magnesium Ammonia Urine Color YELLOW Urine Appearance CLEAR Urine pH 5.0 Ur Specific [place] 1.012 Urine Protein 30 H Urine Glucose (UA) NEGATIVE Urine Ketones NEGATIVE Urine Blood SMALL H Urine Nitrite NEGATIVE Ur Leukocyte Esterase NEGATIVE Urine WBC (Auto) 3 Urine RBC (Auto) 1 05/15/19 05/15/19 05/15/19 04:42 04:42 04:53 WBC RBC Hgb Hct MCV MCH MCHC RDW Plt Count Seg Neutrophils % Carbonic Acid 1.51 H HCO3/H2CO3 Ratio 15:1 ABG pH 7.28 L ABG pCO2 50.0 H ABG pO2 66.7 L ABG HCO3 22.9 ABG O2 Saturation 90.7 L ABG Base Excess -4.1 FiO2 5L Sodium 139.2 Potassium 5.3 H Chloride 105 Carbon Dioxide 24 Anion Gap 10 BUN 71 H Creatinine 3.92 H Est GFR ( Amer) 19 L Glucose 300 H Calcium 8.0 L Phosphorus 5.6 H Magnesium 1.6 Ammonia Cancelled Urine Color Urine Appearance Urine pH Ur Specific [place] Urine Protein Urine Glucose (UA) Urine Ketones Urine Blood Urine Nitrite Ur Leukocyte Esterase Urine WBC (Auto) Urine RBC (Auto) 05/15/19 07:20 WBC RBC Hgb Hct MCV MCH MCHC RDW Plt Count Seg Neutrophils % Carbonic Acid HCO3/H2CO3 Ratio ABG pH ABG pCO2 ABG pO2 ABG HCO3 ABG O2 Saturation ABG Base Excess FiO2 Sodium Potassium Chloride Carbon Dioxide Anion Gap BUN Creatinine Est GFR ( Amer) Glucose Calcium Phosphorus Magnesium Ammonia 9.9 Urine Color Urine Appearance Urine pH Ur Specific [place] Urine Protein Urine Glucose (UA) Urine Ketones Urine Blood Urine Nitrite Ur Leukocyte Esterase Urine WBC (Auto) Urine RBC (Auto) 05/13/19 12:55 Troponin I 0.445 NT-Pro-B Natriuret Pep 10881 H Impressions: Head CT 05/13/19 13:37 IMPRESSION: NO ACUTE INTRACRANIAL IMAGING FINDINGS. EVIDENCE OF ACUTE STROKE: NO. Chest X-Ray 05/15/19 06:00 IMPRESSION: Mildly increased bilateral perihilar and basilar opacities suggestive of edema although infection is not excluded. Small bilateral effusions. Assessment & Plan - Diagnosis (1) Acute kidney injury superimposed on chronic kidney disease Is this a current diagnosis for this admission?: Yes Plan: Multifactorial cause. Currently improving significantly with good urine output. Continue current management except that I will probably decrease his IV fluids to 60 mL an hour given that the patient seems to be taking some fluids orally. (2) Urinary retention Is this a current diagnosis for this admission?: Yes Plan: Continue indwelling Ramirez catheter. Advised patient that once discharge he probably needs to see a urologist for further evaluation regarding this. (3) Acute respiratory failure with hypoxia and hypercapnia Is this a current diagnosis for this admission?: Yes Plan: Defer to drill press tender. (4) COPD exacerbation Is this a current diagnosis for this admission?: Yes (5) Pleural effusion on right Is this a current diagnosis for this admission?: Yes (6) Anemia Qualifiers: Anemia type: iron deficiency Is this a current diagnosis for this admission?: Yes (7) Hyperphosphatemia Is this a current diagnosis for this admission?: Yes Plan: Mild, due to VIDYA and CKD. Associated with mild hypocalcemia. Low phosphorus diet. (8) Hypertension Qualifiers: Hypertension type: essential hypertension Qualified Code(s): I10 - Essential (primary) hypertension Is this a current diagnosis for this admission?: Yes (9) Type 2 diabetes mellitus Qualifiers: Diabetes mellitus [facility] insulin use: without [facility] use Diabetes mellitus complication status: without complication Qualified Code(s): E11.9 - Type 2 diabetes mellitus without complications Is this a current diagnosis for this admission?: Yes - Time Time with patient: 15-25 minutes
[2019-05-15] MEDS ORDERED: NITROGLYCERIN 0.4 MG/TAB 25 TAB/BOTTLE SL PRN (09:58)
[2019-05-15 10:44] LABS: INTERNATIONAL RATION (INR) 1.24; PROTHROMBIN TIME 15.7 SEC (11.4-15.4)
[2019-05-15 10:45] LABS: PARTIAL THROMBOPLASTIN TIME 31.4 SEC (23.5-35.8)
[2019-05-15] MEDS: ISOSORBIDE MONONITRATE 60 MG TAB.ER.24H PO SCH (11:14)
[2019-05-15] MEDS: FERROUS SULFATE 325 MG TABLET PO SCH (11:14)
[2019-05-15] MEDS: AMLODIPINE BESYLATE 10 MG TABLET PO SCH (11:14)
[2019-05-15] MEDS: METOPROLOL TARTRATE 50 MG TABLET PO SCH ×2 (12:32→21:41)
[2019-05-15] MEDS: INSULIN GLARGINE,HUM.REC.ANLOG 1,000 UNIT/10 ML VIAL SUBCUT SCH (12:32)
--- NOTE | 2019-05-15 14:21 | PDOC CRITICAL CARE PROG REPORT ---
General Date:: 05/15/19 ICU Day:: 3 Ventilator Day:: 0 Hospital Day:: 3 Events in the past 12 to 24 Hours:: Patient has been reluctant to use BiPAP and it has been on and off intermittently. He required this yesterday because of somnolence and lowered pH with elevation in PCO2. He has no complaints but continues to endorse that he does not want BiPAP. He also complains of the catheter in his bladder. There is been no hemodynamic instability no neurological deficits since last night. Review of systems relevant to events:: Patient denies any urinary frequency or hesitancy at home. He states that this only happens when he comes to the hospital. His PSA is unremarkable. He said no hematuria. Reason for ICU Addmission:: For cardiac and metabolic acidosis with acute exacerbation of COPD related to hypoxic and hypercarbic respiratory failure - Medications: Medications reviewed and adjusted accordingly: Yes Vasopressors:: None Sedation:: None Physical Exam Vital Signs: Temp Pulse Resp BP Pulse Ox 99.0 F 85 21 H 150/68 H 95 05/15/19 12:00 05/15/19 12:00 05/15/19 12:00 05/15/19 12:00 05/15/19 12:54 Intake & Output 05/14/19 05/15/19 05/16/19 06:59 06:59 06:59 Intake Total 1050 2118 778 Output Total 0 1950 575 Balance 1050 168 203 Weight 91 kg 97.7 kg Weight/Height Weight 97.7 kg Height 6 ft General appearance: PRESENT: no acute distress, cooperative, well-developed, well-nourished Exam: Nonintubated ill nontoxic 68-year-old male no active disease awake alert oriented x3 Head exam: PRESENT: atraumatic, normocephalic Eye exam: PRESENT: conjunctiva pink, EOMI, PERRLA. ABSENT: conjunctival injection, scleral icterus Mouth exam: PRESENT: dry mucosa, neck supple Neck exam: ABSENT: carotid bruit, JVD, lymphadenopathy, thyromegaly, tracheal deviation Respiratory exam: PRESENT: clear to auscultation zachariah, unlabored. ABSENT: accessory muscle use, rales, rhonchi, tachypnea, wheezes Cardiovascular exam: PRESENT: RRR, +S1, +S2. ABSENT: systolic murmur Pulses: PRESENT: +2 pedal pulses bilateral GI/Abdominal exam: PRESENT: normal bowel sounds, soft. ABSENT: distended, firm, guarding, mass, organolmegaly, rebound, rigid, tenderness Rectal exam: ABSENT: deferred Gentrourinary exam: PRESENT: indwelling catheter Extremities exam: ABSENT: pedal edema Musculoskeletal exam: PRESENT: normal inspection. ABSENT: deformity, dislocation Neurological exam: PRESENT: alert, awake, oriented to person, oriented to place, oriented to time, oriented to situation, CN II-XII grossly intact. ABSENT: motor sensory deficit, aphasic Psychiatric exam: PRESENT: agitated Focused psych exam: ABSENT: psychomotor agitation, restlessness Skin exam: PRESENT: dry, intact, normal color, warm. ABSENT: cyanosis, jaundice, pallor, rash Tubes/Lines: ABSENT: Endotracheal Tube, Chest Tube, Central Line, Arterial Catheter, Dialysis catheter - Barnett present--required for outlet obstruction, Peg Tube, Nasogastic Tube, Other Laboratory/Radiographs Laboratory Results: 05/15/19 04:42 05/15/19 04:42 05/14/19 05/15/19 05/15/19 15:55 04:42 04:42 WBC 5.4 RBC 3.64 L Hgb 11.3 L Hct 35.1 L MCV 96 MCH 31.1 MCHC 32.3 RDW 17.4 H Plt Count 217 Seg Neutrophils % 87.1 H Carbonic Acid 1.70 H HCO3/H2CO3 Ratio 14:1 ABG pH 7.26 L ABG pCO2 56.4 H ABG pO2 61.5 L ABG HCO3 24.9 H ABG O2 Saturation 87.7 L ABG Base Excess -2.7 FiO2 5L Sodium 139.2 Potassium 5.3 H Chloride 105 Carbon Dioxide 24 Anion Gap 10 BUN 71 H Creatinine 3.92 H Est GFR ( Amer) 19 L Glucose 300 H Calcium 8.0 L Phosphorus 5.6 H Magnesium 1.6 Ammonia Prostate Specific Ag 05/15/19 05/15/19 05/15/19 04:42 04:53 07:20 WBC RBC Hgb Hct MCV MCH MCHC RDW Plt Count Seg Neutrophils % Carbonic Acid 1.51 H HCO3/H2CO3 Ratio 15:1 ABG pH 7.28 L ABG pCO2 50.0 H ABG pO2 66.7 L ABG HCO3 22.9 ABG O2 Saturation 90.7 L ABG Base Excess -4.1 FiO2 5L Sodium Potassium Chloride Carbon Dioxide Anion Gap BUN Creatinine Est GFR ( Amer) Glucose Calcium Phosphorus Magnesium Ammonia Cancelled 9.9 Prostate Specific Ag 05/15/19 10:25 WBC RBC Hgb Hct MCV MCH MCHC RDW Plt Count Seg Neutrophils % Carbonic Acid HCO3/H2CO3 Ratio ABG pH ABG pCO2 ABG pO2 ABG HCO3 ABG O2 Saturation ABG Base Excess FiO2 Sodium Potassium Chloride Carbon Dioxide Anion Gap BUN Creatinine Est GFR ( Amer) Glucose Calcium Phosphorus Magnesium Ammonia Prostate Specific Ag 1.230 05/13/19 12:55 Troponin I 0.445 NT-Pro-B Natriuret Pep 50909 H Impressions: Head CT 05/13/19 13:37 IMPRESSION: NO ACUTE INTRACRANIAL IMAGING FINDINGS. EVIDENCE OF ACUTE STROKE: NO. Chest X-Ray 05/15/19 06:00 IMPRESSION: Mildly increased bilateral perihilar and basilar opacities suggestive of edema although infection is not excluded. Small bilateral effusions. All labs, radiographs, diagnostic studies and EKGs were personally reviewed: Yes In addition, reports of radiographic and diagnostic studies were read: Yes Assessment and Plan - Diagnosis (1) Acute respiratory failure with hypoxia and hypercapnia Is this a current diagnosis for this admission?: Yes Plan: Improving. Patient at risk for worsening hypercarbia if he continues to refuse BiPAP (2) Acute and chronic respiratory failure ([id number]) Qualifiers: Respiratory failure complication: hypoxia and hypercapnia Qualified Code(s): J96.21 - Acute and chronic respiratory failure with hypoxia; J96.22 - Acute and chronic respiratory failure with hypercapnia Is this a current diagnosis for this admission?: Yes Plan: Continue night time Bipap, concern for non-compliance (3) Acute on chronic renal failure Qualifiers: Acute renal failure type: with other specified pathological lesion Chronic kidney disease stage: stage 5, not on chronic dialysis Qualified Code(s): N17.8 - Other acute kidney failure; N18.5 - Chronic kidney disease, stage 5 Is this a current diagnosis for this admission?: Yes Plan: Improving. Continue to maintain barnett. Will need urology follow up if the barnett requires replacement after trial removal in 24 hours (4) Acute metabolic encephalopathy Is this a current diagnosis for this admission?: Yes Plan: Resolved. Has risk for recurrence without BiPap (5) Acute retention of urine Is this a current diagnosis for this admission?: Yes (6) Mild pulmonary arterial systolic hypertension Is this a current diagnosis for this admission?: Yes Plan: Prior to admission. Had PA catheter last admission showing MAP >25. PAPs elevated in upper 30-40 mmHg. No active treatment other than control of pulmonary issues (7) COPD exacerbation Is this a current diagnosis for this admission?: Yes Plan: Improved. Added steroids. Continue supplemental O2. Will most likely need this at home. (8) Pleural effusion on right Is this a current diagnosis for this admission?: Yes Plan: Evaluated on US. Mild with consolidation on US Plan Summary: 05.15.19: Patient's dyspnea has had some subjective improvement. He minimizes his symptoms including his bladder outlet upper obstruction. I am concerned that his symptomatology and signs of respiratory failure may be missed. He was able to ambulate around the ICU today with oxygen and I have downgraded him to floor status. He will need to maintain BiPAP at night and I am concerned that he will require oxygen supplementation when discharged. 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 There also appears to be evidence of early bronchial dilation which may be consistent with early bronchiectasis. He does have a pleural effusion on the right but it is small. The right lung appears to have consolidation and this may represent a postobstructive pneumonia. When he is improved we will need to have him follow-up with pulmonary service for an outpatient bronchoscopy. Patient has a history of atrial flutter and this was confirmed by discussion with Dr. Sanchez today. I have restarted his apixaban. He also has a history of chronic neuropathic pain and I have restarted his Neurontin albeit at a lower dose. Will need to have urological follow-up and the plan is to discontinue the Barnett hopefully in the next 24 hours and then reevaluate bladder fullness based on a bladder scan. If there is urinary retention he will need an indwelling chronic Barnett until seen by urology. We will continue supportive care. Discussion about smoking was also carried out. I have added antibiotics to his armamentarium in hopes that an occult infection will be relieved. Unfortunately we do not have procalcitonin to be able to evaluate for infectious versus simply inflammatory pneumonitis. 11.18.19 Patient has improved and has been weaned down to nasal cannula oxygen. Will order baseline ABG on this nasal cannula. The patient has acute urinary outlet obstruction. There is a strong concern that this is been chronic and ongoing. This may be the reason for his transition to CKD 4-5. The patient examines for dehydration. Have provided IV fluids and will follow his creatinine with this. He has had a slow insidious decline in his GFR and review of his records. In review of his last admission patient had a pulmonary artery catheter placed. He does fulfill criteria for mild pulmonary hypertension. I reviewed his CT scan which did show a pleural effusion. The pleural effusion appears to be transudate of based on light's criteria. He has a small effusion on chest x-ray this time but not significant. Will evaluate with ultrasound. His pulmonary hypertension would be related to his COPD which places him at the who class III classification. No treatment other than supportive care at this point would be required. The patient continues to smoke despite his advanced COPD. Discussed his case and smoking with him for an extended period of time. He is not a candidate for home oxygen if he continues to smoke and this has been discussed. Will provide BiPAP at night and as needed for any respiratory distress or any CO2 narcosis. Continue to provide supportive care with in the ICU. Have started nicotine placement patch. Follow urine analysis. Critical Time Critical Time (minutes): 45 - significant time with review of records, critical care Ultrasound and follow up exam Level of Care: ICU Smoking Cessation Education: 3 to 10 minutes Anticipated discharge: Acute Rehab -: 1. The care of a critical patient is a dynamic process. This note is a ambulatory services representative synopsis but static in nature. The timeframe for treatments given in order is not necessary the actual time these treatments may have been done. 2. This patient requires critical care secondary to ongoing requirements for t herapy not offered or safe outside the critical care environment. Transfer to a lower level of care with altered life or limb morbidity and mortality. 3. Multidisciplinary rounds completed. 4. ABCDE bundle addressed. 5. MPOA:
[2019-05-15] MEDS ORDERED: ALBUTEROL SULFATE 0.083% NEB 2.5 MG/3 ML AMPUL NEB PRN (15:10)
[2019-05-15] MEDS: LINEZOLID 600 MG TABLET PO SCH ×2 (15:24→21:41)
[2019-05-15] MEDS: APIXABAN 5 MG TABLET PO SCH ×2 (15:24→21:41)
[2019-05-15] MEDS: MEROPENEM 1 GM in NORMAL SALINE 50 ML IV SCH ×2 (15:24→21:44)
[2019-05-15] MEDS: 1/2 NORMAL SALINE 1,000 ML IV PRN (15:26)
[2019-05-15] MEDS: ALBUTEROL SULFATE 0.083% NEB 2.5 MG/3 ML AMPUL NEB SCH ×2 (17:09→21:20)
[2019-05-15 19:13] LABS: BLOOD UREA NITROGEN 68 mg/dL (7-20); GLUCOSE 321 mg/dL (75-110)
[2019-05-15 19:14] LABS: ANION GAP 11 (5-19); CARBON DIOXIDE 23 mmol/L (22-30); CHLORIDE 108 mmol/L (98-107); POTASSIUM 5.5 mmol/L (3.6-5.0)
[2019-05-15] MEDS: MELATONIN 5 MG TABLET PO SCH (21:41)
[2019-05-15] MEDS: ATORVASTATIN CALCIUM 40 MG TABLET PO SCH (21:41)
[2019-05-16 04:43] LABS: ABSOLUTE LYMPHOCYTES (AUTO) 0.6 10^3/uL (0.5-4.7); ABSOLUTE MONOCYTES (AUTO) 0.3 10^3/uL (0.1-1.4); ABSOLUTE NEUT (AUTO) 6.7 10^3/uL (1.7-8.2); BASOPHILS % (AUTO) 0.2 % (0-2); HEMATOCRIT 34.3 % (37.9-51.0); HEMOGLOBIN 11.1 g/dL (13.5-17.0); LYMPHOCYTES % (AUTO) 7.6 % (13-45); MEAN CORPUSCULAR HEMOGLOBIN 31.5 pg (27.0-33.4); MEAN CORPUSCULAR HGB CONC 32.5 g/dL (32.0-36.0); MEAN CORPUSCULAR VOLUME 97 fl (80-97); MONOCYTES % (AUTO) 3.4 % (3-13); PLATELET COUNT 197 10^3/uL (150-450); RED BLOOD COUNT 3.53 10^6/uL (4.35-5.55); RED CELL DISTRIBUTION WIDTH 17.7 % (11.5-14.0); SEGMENTED NEUTROPHILS % (AUTO) 88.8 % (42-78); TOTAL CELLS COUNTED % (AUTO) 100 %; WHITE BLOOD COUNT 7.6 10^3/uL (4.0-10.5)
[2019-05-16 05:07] LABS: ANION GAP 8 (5-19); BLOOD UREA NITROGEN 66 mg/dL (7-20); CALCIUM 8.1 mg/dL (8.4-10.2); CARBON DIOXIDE 24 mmol/L (22-30); CHLORIDE 106 mmol/L (98-107); GLUCOSE 290 mg/dL (75-110); PHOSPHORUS 4.7 mg/dL (2.5-4.5); POTASSIUM 5.2 mmol/L (3.6-5.0)
[2019-05-16] MEDS: INSULIN REG, HUMAN 100 UNIT/ML 3 ML VIAL (PYX) SUBCUT SCH ×4 (05:14→23:01)
[2019-05-16] MEDS: HEPARIN SOD (PORCINE) 5,000 UNIT/ML 1 ML VIAL SUBCUT SCH ×2 (05:15→13:30)
[2019-05-16] MEDS: METHYLPREDNISOLONE INJ 40 MG/1 ML SDV IV SCH ×2 (05:15→17:55)
[2019-05-16] MEDS: ALBUTEROL SULFATE 0.083% NEB 2.5 MG/3 ML AMPUL NEB SCH ×4 (08:16→20:46)
--- NOTE | 2019-05-16 09:14 | PDOC PROGRESS REPORT ---
Subjective Progress Note for:: 05/16/19 Subjective:: Patient is doing great. I was told that he was able to walk around the hallway yesterday. He continues to produce adequate amount of urine, 1450 mL for the last 24 hours. He feels better and has no new complaints. Reason For Visit: COPD EXACERBATON,ACUTE RESPIRATORY FAILURE WITH Physical Exam Vital Signs: Temp Pulse Resp BP Pulse Ox 97.2 F 61 18 131/64 H 93 05/16/19 08:00 05/16/19 08:26 05/16/19 08:26 05/16/19 08:00 05/16/19 08:26 Intake & Output 05/15/19 05/16/19 05/17/19 06:59 06:59 06:59 Intake Total 2118 1050 Output Total 1950 1450 200 Balance 168 -400 -200 Weight 97.7 kg 96.5 kg Exam: General appearance: [PRESENT: no acute distress, cooperative, well-developed, well-nourished] Head exam: [PRESENT: atraumatic, normocephalic] Eye exam: [PRESENT: conjunctiva slightly pale, PERRLA. ABSENT: scleral icterus] Neck exam: [ABSENT: JVD] Respiratory exam: [PRESENT: Diminished breath sounds. ABSENT: crackles, rales, rhonchi, unlabored, wheezes] Cardiovascular exam: [PRESENT: Regular rate rhythm -+S1, +S2. ABSENT: diastolic murmur, systolic murmur] GI/Abdominal exam: [PRESENT: normal bowel sounds, soft. ABSENT: guarding, mass, tenderness] Extremities exam: [ABSENT: No edema] Neurological exam: [PRESENT: alert, awake, oriented to person, place and time.] Skin exam: [PRESENT: dry, warm,] Results Laboratory Results: 05/16/19 04:21 05/16/19 04:21 05/15/19 05/15/19 05/16/19 10:25 18:39 04:21 WBC RBC Hgb Hct MCV MCH MCHC RDW Plt Count Seg Neutrophils % Sodium 141.7 138.4 Potassium 5.5 H 5.2 H Chloride 108 H 106 Carbon Dioxide 23 24 Anion Gap 11 8 BUN 68 H 66 H Creatinine 3.35 H 3.16 H Est GFR ( Amer) 22 L 24 L Glucose 321 H 290 H Calcium 8.0 L 8.1 L Phosphorus 4.7 H Magnesium 1.6 Prostate Specific Ag 1.230 05/16/19 04:21 WBC 7.6 RBC 3.53 L Hgb 11.1 L Hct 34.3 L MCV 97 MCH 31.5 MCHC 32.5 RDW 17.7 H Plt Count 197 Seg Neutrophils % 88.8 H Sodium Potassium Chloride Carbon Dioxide Anion Gap BUN Creatinine Est GFR ( Amer) Glucose Calcium Phosphorus Magnesium Prostate Specific Ag 05/13/19 12:55 Troponin I 0.445 NT-Pro-B Natriuret Pep 55573 H Impressions: Head CT 05/13/19 13:37 IMPRESSION: NO ACUTE INTRACRANIAL IMAGING FINDINGS. EVIDENCE OF ACUTE STROKE: NO. Chest X-Ray 05/15/19 06:00 IMPRESSION: Mildly increased bilateral perihilar and basilar opacities suggestive of edema although infection is not excluded. Small bilateral effusions. Assessment & Plan - Diagnosis (1) Acute kidney injury superimposed on chronic kidney disease Is this a current diagnosis for this admission?: Yes Plan: Multifactorial cause. Currently improving significantly with good urine output. Continue current management . (2) Urinary retention Is this a current diagnosis for this admission?: Yes Plan: Plan today is to remove the Ramirez catheter and see if the patient can urinate on his own. I still think the patient is to follow-up with urology as an out patient for further evaluation regarding this. (3) Acute respiratory failure with hypoxia and hypercapnia Is this a current diagnosis for this admission?: Yes Plan: Defer to director television. (4) COPD exacerbation Is this a current diagnosis for this admission?: Yes (5) Pleural effusion on right Is this a current diagnosis for this admission?: Yes (6) Anemia Qualifiers: Anemia type: iron deficiency Is this a current diagnosis for this admission?: Yes (7) Hyperphosphatemia Is this a current diagnosis for this admission?: Yes Plan: Mild, due to VIDYA and CKD. Associated with mild hypocalcemia. Low phosphorus diet. Improving. (8) Hypertension Qualifiers: Hypertension type: essential hypertension Qualified Code(s): I10 - Essential (primary) hypertension Is this a current diagnosis for this admission?: Yes (9) Type 2 diabetes mellitus Qualifiers: Diabetes mellitus nursing home insulin use: without terminal supervisor use Diabetes mellitus complication status: without complication Qualified Code(s): E11.9 - Type 2 diabetes mellitus without complications Is this a current diagnosis for this admission?: Yes - Time Time with patient: 15-25 minutes
[2019-05-16] MEDS: APIXABAN 5 MG TABLET PO SCH ×2 (09:16→22:41)
[2019-05-16] MEDS: AMLODIPINE BESYLATE 10 MG TABLET PO SCH (09:16)
[2019-05-16] MEDS: LINEZOLID 600 MG TABLET PO SCH ×2 (09:16→22:40)
[2019-05-16] MEDS: METOPROLOL TARTRATE 50 MG TABLET PO SCH ×2 (09:16→22:40)
[2019-05-16] MEDS: MEROPENEM 1 GM in NORMAL SALINE 50 ML IV SCH ×2 (09:17→22:42)
[2019-05-16] MEDS: FERROUS SULFATE 325 MG TABLET PO SCH (09:17)
[2019-05-16] MEDS: ISOSORBIDE MONONITRATE 60 MG TAB.ER.24H PO SCH (09:17)
[2019-05-16] MEDS: INSULIN GLARGINE,HUM.REC.ANLOG 1,000 UNIT/10 ML VIAL SUBCUT SCH (09:17)
[2019-05-16] MEDS: 1/2 NORMAL SALINE 1,000 ML IV PRN (09:17)
--- NOTE | 2019-05-16 16:52 | PDOC CRITICAL CARE PROG REPORT ---
General Date:: 05/16/19 ICU Day:: 4 Ventilator Day:: 0 Hospital Day:: 4 Events in the past 12 to 24 Hours:: Patient continues to refuse his BiPAP and becomes agitated at times regarding this. And asked about his smoking he says he has stopped. When asked how long ago this occurred he states that it was on the day of admission. There has been no hemodynamic instability or fever. Review of systems relevant to events:: Patient was able to ambulate yesterday and today. Some slight dyspnea with exertion. Still has Barnett catheter in place. Patient denies any urinary retention. Reason for ICU Addmission:: For cardiac and metabolic acidosis with acute exacerbation of COPD related to hypoxic and hypercarbic respiratory failure - Medications: Medications reviewed and adjusted accordingly: Yes Vasopressors:: None Sedation:: None Physical Exam Vital Signs: Temp Pulse Resp BP Pulse Ox 97.3 F 68 23 H 136/60 H 94 05/16/19 14:00 05/16/19 14:00 05/16/19 15:00 05/16/19 14:00 05/16/19 15:00 Intake & Output 05/15/19 05/16/19 05/17/19 06:59 06:59 06:59 Intake Total 2118 2100 Output Total 1950 1450 620 Balance 168 650 -620 Weight 97.7 kg 96.5 kg Weight/Height Weight 96.5 kg Height 6 ft General appearance: PRESENT: no acute distress, cooperative, well-developed, well-nourished Exam: 68-year-old white male ill without acute distress. Head exam: PRESENT: atraumatic, normocephalic Eye exam: PRESENT: conjunctiva pink, EOMI, PERRLA. ABSENT: scleral icterus Ear exam: PRESENT: normal external ear exam Mouth exam: PRESENT: moist, neck supple, tongue midline Neck exam: ABSENT: carotid bruit, JVD, lymphadenopathy, thyromegaly Respiratory exam: PRESENT: clear to auscultation zachariah, decreased breath sounds - at bases, unlabored. ABSENT: rales, rhonchi, tachypnea, wheezes Pulses: PRESENT: +2 pedal pulses bilateral Vascular exam: PRESENT: normal capillary refill GI/Abdominal exam: PRESENT: normal bowel sounds, soft. ABSENT: ascites, distended, guarding, mass, organolmegaly, rebound, tenderness Rectal exam: PRESENT: deferred Gentrourinary exam: PRESENT: indwelling catheter Extremities exam: ABSENT: clubbing, pedal edema Musculoskeletal exam: PRESENT: ambulatory, deformity, dislocation, normal inspection Neurological exam: PRESENT: alert, awake, oriented to person, oriented to place, oriented to time, oriented to situation, CN II-XII grossly intact, other - ambu lates with walker, No apraxia or ataxia. ABSENT: abnormal gait, ataxia, motor sensory deficit Psychiatric exam: PRESENT: appropriate affect. ABSENT: agitated, anxious Focused psych exam: ABSENT: psychomotor agitation, restlessness Skin exam: PRESENT: dry, intact, normal color, warm. ABSENT: cyanosis, mottled, pallor, rash Tubes/Lines: ABSENT: Endotracheal Tube, Chest Tube, Central Line, Arterial Catheter, Dialysis catheter - Barnett present., Peg Tube, Nasogastic Tube, Other Laboratory/Radiographs Laboratory Results: 05/16/19 04:21 05/16/19 04:21 05/15/19 05/16/19 05/16/19 18:39 04:21 04:21 WBC 7.6 RBC 3.53 L Hgb 11.1 L Hct 34.3 L MCV 97 MCH 31.5 MCHC 32.5 RDW 17.7 H Plt Count 197 Seg Neutrophils % 88.8 H Sodium 141.7 138.4 Potassium 5.5 H 5.2 H Chloride 108 H 106 Carbon Dioxide 23 24 Anion Gap 11 8 BUN 68 H 66 H Creatinine 3.35 H 3.16 H Est GFR ( Amer) 22 L 24 L Glucose 321 H 290 H Calcium 8.0 L 8.1 L Phosphorus 4.7 H Magnesium 1.6 05/13/19 12:55 Troponin I 0.445 NT-Pro-B Natriuret Pep [id number] H Impressions: Head CT 05/13/19 13:37 IMPRESSION: NO ACUTE INTRACRANIAL IMAGING FINDINGS. EVIDENCE OF ACUTE STROKE: NO. Chest X-Ray 05/15/19 06:00 IMPRESSION: Mildly increased bilateral perihilar and basilar opacities suggest rylan of edema although infection is not excluded. Small bilateral effusions. All labs, radiographs, diagnostic studies and EKGs were personally reviewed: Yes In addition, reports of radiographic and diagnostic studies were read: Yes Assessment and Plan - Diagnosis (1) Acute respiratory failure with hypoxia and hypercapnia Is this a current diagnosis for this admission?: Yes Plan: Improved. Patient at risk for worsening hypercarbia if he continues to refuse BiPAP (2) Acute and chronic respiratory failure ([id number]) Qualifiers: Respiratory failure complication: hypoxia and hypercapnia Qualified Code(s): J96.21 - Acute and chronic respiratory failure with hypoxia; J96.22 - Acute and chronic respiratory failure with hypercapnia Is this a current diagnosis for this admission?: Yes Plan: Patient refusing night time Bipap, concern for hypercarbia. (3) Acute on chronic renal failure Qualifiers: Acute renal failure type: with other specified pathological lesion Chronic kidney disease stage: stage 5, not on chronic dialysis Qualified Code(s): N17.8 - Other acute kidney failure; N18.5 - Chronic kidney disease, stage 5 Is this a current diagnosis for this admission?: Yes Plan: Improving. D/C barnett. Will need urology follow up if the barnett requires replacement (4) Acute metabolic encephalopathy Is this a current diagnosis for this admission?: Yes Plan: Resolved. Has risk for recurrence without BiPap (5) Acute retention of urine Is this a current diagnosis for this admission?: Yes Plan: Remove barnett catheter, check bladder scan (6) Mild pulmonary arterial systolic hypertension Is this a current diagnosis for this admission?: Yes Plan: Prior to admission. PA catheter last admission with MAP >25. PAPs in upper 30- 40 mmHg. Treatment is directed toward control of pulmonary issues (7) COPD exacerbation Is this a current diagnosis for this admission?: Yes Plan: Improved. Weaning steroids. Continue supplemental O2. Will need this at home. (8) Pleural effusion on right Is this a current diagnosis for this admission?: Yes Plan: Evaluated on US. Mild, with consolidation on US. Follow up xray pending Plan Summary: 05.16.19: Patient has been refusing his BiPAP at night. He states that he feels much better. He did have some degree of oxygen desaturation while walking yesterday and had been able to tolerate this better today. Notably, after any activity, he does develop some degree of dyspnea. His chest x-ray was notable for small effusion and consolidation on the right and antibiotics have been started. Will follow a repeat chest x-ray. Patient had urinary retention requiring a Barnett catheter. We have remove this and will follow a bladder scan and for clinical symptoms. His PSA is not elevated. He has been started on antibiotics and we will continue them pending x-ray changes. His effusion is not large enough to attempt to interrogate but will continue to monitor and follow. We will continue's present and supportive care. He has had an echocardiogram which was negative for failure. Given his recurrent effusions he may be a candidate for heart failure with preserved ejection fraction. He is seen as an outpatient by Dr. Sanchez. Patient does have some small degree of pulmonary hypertension. He has atrial fibrillation and has been placed back on his apixaban. Subcutaneous DVT chemical prophylaxis has been discontinued. We will continue supportive care including physical therapy. He is under consideration for pulmonary rehab given his extensive COPD Appreciate case management and social work assistance with his care. Far as his acute kidney dysfunction, this has improved. We have reduced his IV fluids. We will continue to monitor and follow accordingly. Appreciate the assistance of the nephrology service. 05.15.19: Patient's dyspnea has had some subjective improvement. He minimizes his symptoms including his bladder outlet upper obstruction. I am concerned that his symptomatology and signs of respiratory failure may be missed. He was able to ambulate around the ICU today with oxygen and I have downgraded him to floor status. He will need to maintain BiPAP at night and I am concerned that he will require oxygen supplementation when discharged. 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 There also appears to be evidence of early bronchial dilation which may be consistent with early bronchiectasis. He does have a pleural effusion on the right but it is small. The right lung appears to have consolidation and this may represent a postobstructive pneumonia. When he is improved we will need to have him follow-up with pulmonary service for an outpatient bronchoscopy. Patient has a history of atrial flutter and this was confirmed by discussion with Dr. Sanchez today. I have restarted his apixaban. He also has a history of chronic neuropathic pain and I have restarted his Neurontin albeit at a lower dose. Will need to have urological follow-up and the plan is to discontinue the Barnett hopefully in the next 24 hours and then reevaluate bladder fullness based on a bladder scan. If there is urinary retention he will need an indwelling chronic Barnett until seen by urology. We will continue supportive care. Discussion about smoking was also carried out. I have added antibiotics to his armamentarium in hopes that an occult infection will be relieved. Unfortunately we do not have procalcitonin to be able to evaluate for infectious versus simply inflammatory pneumonitis. 1118.19 Patient has improved and has been weaned down to nasal cannula oxygen. Will order baseline ABG on this nasal cannula. The patient has acute urinary outlet obstruction. There is a strong concern that this is been chronic and ongoing. This may be the reason for his transition to CKD 4-5. The patient examines for dehydration. Have provided IV fluids and will follow his creatinine with this. He has had a slow insidious decline in his GFR and re view of his records. In review of his last admission patient had a pulmonary artery catheter placed. He does fulfill criteria for mild pulmonary hypertension. I reviewed his CT scan which did show a pleural effusion. The pleural effusion appears to be transudate of based on light's criteria. He has a small effusion on chest x-ray this time but not significant. Will evaluate with ultrasound. His pulmonary hypertension would be related to his COPD which places him at the who class III classification. No treatment other than supportive care at this point would be required. The patient continues to smoke despite his advanced COPD. Discussed his case and smoking with him for an extended period of time. He is not a candidate for home oxygen if he continues to smoke and this has been discussed. Will provide BiPAP at night and as needed for any respiratory distress or any CO2 narcosis. Continue to provide supportive care with in the ICU. Have started nicotine placement patch. Follow urine analysis. Critical Time Critical Time (minutes): 0 - [id number] Level of Care: ICU Anticipated discharge: Acute Rehab Within: within 48 hours -: 1. The care of a critical patient is a dynamic process. This note is a field support representative synopsis but static in nature. The timeframe for treatments given in order is not necessary the actual time these treatments may have been done. 2. This patient requires critical care secondary to ongoing requirements for therapy not offered or safe outside the critical care environment. Transfer to a lower level of care with altered life or limb morbidity and mortality. 3. Multidisciplinary rounds completed. 4. ABCDE bundle addressed. 5. MPOA:
[2019-05-16] MEDS ORDERED: INSULIN GLARGINE,HUM.REC.ANLOG 1,000 UNIT/10 ML VIAL (PYX) SUBCUT SCH (18:00)
[2019-05-16] MEDS: MELATONIN 5 MG TABLET PO SCH (22:40)
[2019-05-16] MEDS: ATORVASTATIN CALCIUM 40 MG TABLET PO SCH (22:41)
[2019-05-17 04:45] LABS: ABSOLUTE LYMPHOCYTES (AUTO) 0.7 10^3/uL (0.5-4.7); ABSOLUTE MONOCYTES (AUTO) 0.6 10^3/uL (0.1-1.4); ABSOLUTE NEUT (AUTO) 8.1 10^3/uL (1.7-8.2); BASOPHILS % (AUTO) 0.2 % (0-2); EOSINOPHILS % (AUTO) 0.1 % (0-6); HEMATOCRIT 33.6 % (37.9-51.0); HEMOGLOBIN 10.9 g/dL (13.5-17.0); LYMPHOCYTES % (AUTO) 7.6 % (13-45); MEAN CORPUSCULAR HEMOGLOBIN 31.2 pg (27.0-33.4); MEAN CORPUSCULAR HGB CONC 32.3 g/dL (32.0-36.0); MEAN CORPUSCULAR VOLUME 97 fl (80-97); MONOCYTES % (AUTO) 6.7 % (3-13); PLATELET COUNT 192 10^3/uL (150-450); RED BLOOD COUNT 3.48 10^6/uL (4.35-5.55); RED CELL DISTRIBUTION WIDTH 17.3 % (11.5-14.0); SEGMENTED NEUTROPHILS % (AUTO) 85.4 % (42-78); TOTAL CELLS COUNTED % (AUTO) 100 %; WHITE BLOOD COUNT 9.5 10^3/uL (4.0-10.5)
[2019-05-17 05:05] LABS: ANION GAP 10 (5-19); BLOOD UREA NITROGEN 63 mg/dL (7-20); CALCIUM 8.5 mg/dL (8.4-10.2); CARBON DIOXIDE 23 mmol/L (22-30); CHLORIDE 107 mmol/L (98-107); GLUCOSE 284 mg/dL (75-110); PHOSPHORUS 4.8 mg/dL (2.5-4.5); POTASSIUM 5.2 mmol/L (3.6-5.0)
[2019-05-17 05:23] LABS: INTERNATIONAL RATION (INR) 1.55; PROTHROMBIN TIME 18.7 SEC (11.4-15.4)
[2019-05-17] MEDS: INSULIN REG, HUMAN 100 UNIT/ML 3 ML VIAL (PYX) SUBCUT SCH ×3 (05:29→17:30)
[2019-05-17 05:31] LABS: PARTIAL THROMBOPLASTIN TIME 31.8 SEC (23.5-35.8)
[2019-05-17] MEDS: METHYLPREDNISOLONE INJ 40 MG/1 ML SDV IV SCH ×2 (05:37→17:30)
[2019-05-17] MEDS: ALBUTEROL SULFATE 0.083% NEB 2.5 MG/3 ML AMPUL NEB SCH ×4 (08:29→21:25)
--- NOTE | 2019-05-17 08:31 | RADIOLOGY REPORT (SQ) ---
EXAM DESCRIPTION: CHEST SINGLE VIEW COMPLETED DATE/TIME: 05/17/2019 6:24 am REASON FOR STUDY: pneumonia COMPARISON: CT chest 04/20/2019 Chest films 05/01/2019, 05/13/2019, 05/15/2019 EXAM PARAMETERS: NUMBER OF VIEWS: One view. TECHNIQUE: Single frontal radiographic view of the chest acquired. RADIATION DOSE: NA LIMITATIONS: None. FINDINGS: LUNGS AND PLEURA: Hazy opacity over the right and left chest likely related to small to mo derate size pleural effusions. There is patchy bibasilar airspace disease atelectasis versus pneumon ia. This similar over the series of exams. No pneumothorax. MEDIASTINUM AND HILAR STRUCTURES: No masses. Contour normal. HEART AND VASCULAR STRUCTURES: Mild cardiomegaly, stable BONES: No acute findings. HARDWARE: None in the chest. OTHER: No other significant finding. IMPRESSION: Small to moderate size bilateral pleural effusions with bibasilar airspace disease, atel ectasis versus pneumonia. TECHNICAL DOCUMENTATION: JOB ID: [id number] [employer]- All Rights Reserved Reading location - IP/workstation name: [email or web address]
[2019-05-17] MEDS: APIXABAN 5 MG TABLET PO SCH (09:49)
[2019-05-17] MEDS: 1/2 NORMAL SALINE 1,000 ML IV PRN ×2 (10:16→23:36)
[2019-05-17] MEDS: MEROPENEM 1 GM in NORMAL SALINE 50 ML IV SCH ×2 (10:38→21:26)
[2019-05-17] MEDS: AMLODIPINE BESYLATE 10 MG TABLET PO SCH (10:39)
[2019-05-17] MEDS: FERROUS SULFATE 325 MG TABLET PO SCH (10:39)
[2019-05-17] MEDS: LINEZOLID 600 MG TABLET PO SCH ×2 (10:39→21:27)
[2019-05-17] MEDS: ISOSORBIDE MONONITRATE 60 MG TAB.ER.24H PO SCH (10:39)
[2019-05-17] MEDS: METOPROLOL TARTRATE 50 MG TABLET PO SCH ×2 (10:39→21:27)
--- NOTE | 2019-05-17 11:25 | PDOC PROGRESS REPORT ---
Subjective Progress Note for:: 05/17/19 Subjective:: Patient states that he is feeling okay. As per Dr. Kam, the microsoft office instructor notes patient has been refusing to wear his BiPAP and has persistent hypercarbia. The patient states that he is breathing fine now. His Ramirez catheter was removed yesterday. Urine output recorded was 870. Patient states that he is emptying his bladder without difficulty. Does not have any other new complaints. Reason For Visit: COPD EXACERBATON,ACUTE RESPIRATORY FAILURE WITH Physical Exam Vital Signs: Temp Pulse Resp BP Pulse Ox 97.8 F 86 21 H 132/74 H 90 L 05/17/19 03:48 05/17/19 10:48 05/17/19 10:48 05/17/19 10:48 05/17/19 10:48 Intake & Output 05/16/19 05/17/19 05/18/19 06:59 06:59 06:59 Intake Total 2100 1100 Output Total 1450 870 50 Balance 650 230 -50 Weight 96.5 kg 97.1 kg Exam: General appearance: PRESENT: no acute distress, cooperative, well-developed, well-nourished Head exam: PRESENT: atraumatic, normocephalic Eye exam: PRESENT: conjunctiva slightly pale, PERRLA. ABSENT: scleral icterus Neck exam: ABSENT: JVD Respiratory exam: PRESENT: Normal breath sounds. ABSENT: crackles, rales, rhonchi, unlabored, wheezes Cardiovascular exam: PRESENT: Regular rate rhythm -+S1, +S2. ABSENT: diastolic murmur, systolic murmur GI/Abdominal exam: PRESENT: normal bowel sounds, soft. ABSENT: guarding, mass, tenderness Extremities exam: Bilateral trace lower extremity pitting edema Neurological exam: PRESENT: alert, awake, oriented to person, place and time. Skin exam: PRESENT: dry, warm, Results Laboratory Results: 05/17/19 04:10 05/17/19 04:10 05/17/19 05/17/19 04:10 04:10 WBC 9.5 RBC 3.48 L Hgb 10.9 L Hct 33.6 L MCV 97 MCH 31.2 MCHC 32.3 RDW 17.3 H Plt Count 192 Seg Neutrophils % 85.4 H Sodium 139.8 Potassium 5.2 H Chloride 107 Carbon Dioxide 23 Anion Gap 10 BUN 63 H Creatinine 2.82 H Est GFR ( Amer) 27 L Glucose 284 H Calcium 8.5 Phosphorus 4.8 H Magnesium 1.6 05/13/19 12:55 Troponin I 0.445 NT-Pro-B Natriuret Pep [id number] H Impressions: Head CT 05/13/19 13:37 IMPRESSION: NO ACUTE INTRACRANIAL IMAGING FINDINGS. EVIDENCE OF ACUTE STROKE: NO. Chest X-Ray 05/17/19 06:00 IMPRESSION: Small to moderate size bilateral pleural effusions with bibasilar airspace disease, atelectasis versus pneumonia. Assessment & Plan - Diagnosis (1) Acute kidney injury superimposed on chronic kidney disease Is this a current diagnosis for this admission?: Yes Plan: Multifactorial cause. Currently improving significantly with good urine output. Continue current management . I expect the patient's kidney function to continue to improve from here. (2) Urinary retention Is this a current diagnosis for this admission?: Yes Plan: Ramirez catheter removed yesterday. So far the patient is making urine. He still consider urology consultation as an outpatient. (3) Acute respiratory failure with hypoxia and hypercapnia Is this a current diagnosis for this admission?: Yes Plan: Defer to micro[employer] office instructor. (4) COPD exacerbation Is this a current diagnosis for this admission?: Yes (5) Pleural effusion on right Is this a current diagnosis for this admission?: Yes Plan: Seems to be slightly worse radiographically. I recommend discontinuation of IV fluids at this point. (6) Anemia Qualifiers: Anemia type: iron deficiency Is this a current diagnosis for this admission?: Yes (7) Hyperphosphatemia Is this a current diagnosis for this admission?: Yes Plan: Mild, due to VIDYA and CKD. Associated with mild hypocalcemia. Low phosphorus diet. Stable. (8) Hypertension Qualifiers: Hypertension type: essential hypertension Qualified Code(s): I10 - Essential (primary) hypertension Is this a current diagnosis for this admission?: Yes Plan: Controlled. (9) Type 2 diabetes mellitus Qualifiers: Diabetes mellitus technician terminal and repeater insulin use: without technician terminal and repeater use Diabetes mellitus complication status: without complication Qualified Code(s): E11.9 - Type 2 diabetes mellitus without complications Is this a current diagnosis for this admission?: Yes - Notes Notes: No further recommendations from nephrology standpoint. I will sign off. Please do not hesitate to call me for any questions or if I can be of any further help. - Time Time with patient: 15-25 minutes
--- NOTE | 2019-05-17 14:20 | PDOC CRITICAL CARE PROG REPORT ---
General Date:: 05/17/19 ICU Day:: 5 Ventilator Day:: 0 Hospital Day:: 6 Events in the past 12 to 24 Hours:: 05.17.19: Barnett removed. Able to urinate. Bladder scan does not show retention. Patient develops dyspnea with activity requiring higher level of oxygen therapy. 05.16.19: Events in the past 12 to 24 Hours:: Patient continues to refuse his BiPAP and becomes agitated at times regarding this. And asked about his smoking he says he has stopped. When asked how long ago this occurred he states that it was on the day of admission. There has been no hemodynamic instability or fever. Review of systems relevant to events:: Patient was able to ambulate yesterday and today. Some slight dyspnea with exertion. Still has Barnett catheter in place. Patient denies any urinary retention. Reason for ICU Addmission:: For cardiac and metabolic acidosis with acute e xacerbation of COPD related to hypoxic and hypercarbic respiratory failure Review of systems relevant to events:: Bedside critical care ultrasound done which showed a significant effusion on the right side with consolidation of the lung. Patient minimizes his dyspnea and states that he is well enough to go home. Denies any difficulty urinating area Reason for ICU Addmission:: For cardiac and metabolic acidosis with acute exacerbation of COPD related to hypoxic and hypercarbic respiratory failure - Medications: Medications reviewed and adjusted accordingly: Yes Vasopressors:: None Sedation:: None Physical Exam Vital Signs: Temp Pulse Resp BP Pulse Ox 97.8 F 64 21 H 137/65 H 91 L 05/17/19 03:48 05/17/19 08:29 05/17/19 08:29 05/17/19 06:05 05/17/19 08:29 Intake & Output 05/16/19 05/17/19 05/18/19 06:59 06:59 06:59 Intake Total 2100 50 Output Total 1450 870 50 Balance 650 -820 -50 Weight 96.5 kg 97.1 kg Weight/Height Weight 97.1 kg Height 6 ft General appearance: PRESENT: no acute distress, cooperative, well-developed, well-nourished Exam: Nontoxic but ill-appearing 68-year-old white male no active distress awake alert oriented x3 Head exam: PRESENT: atraumatic, normocephalic Eye exam: PRESENT: conjunctiva pink, EOMI, PERRLA. ABSENT: conjunctival injection, scleral icterus Ear exam: PRESENT: normal external ear exam Mouth exam: PRESENT: moist, neck supple, tongue midline Neck exam: PRESENT: other - Ecchymosis on the right neck from previous central line. Mild ecchymosis on right temporal region present on admission. ABSENT: carotid bruit, JVD, tenderness, thyromegaly Respiratory exam: PRESENT: crackles, rhonchi - On right, unlabored, other - Bedside critical care ultrasound reveals approximately 1500 to 1700 cc of fluid. Appears noncomplex. ABSENT: accessory muscle use, tachypnea, wheezes Cardiovascular exam: PRESENT: irregular rhythm, RRR, +S1, +S2. ABSENT: rubs, sy stolic murmur, tachycardia Pulses: PRESENT: +1 pedal pulses bilateral Vascular exam: PRESENT: normal capillary refill. ABSENT: pallor GI/Abdominal exam: PRESENT: normal bowel sounds, soft. ABSENT: ascites, distended, guarding, mass, organolmegaly, rebound, tenderness Rectal exam: PRESENT: deferred Gentrourinary exam: ABSENT: indwelling catheter Extremities exam: ABSENT: pedal edema, tenderness Musculoskeletal exam: PRESENT: ambulatory, normal inspection. ABSENT: deformity, dislocation Neurological exam: PRESENT: alert, awake, oriented to person, oriented to place, oriented to time, oriented to situation, CN II-XII grossly intact. ABSENT: motor sensory deficit Psychiatric exam: PRESENT: anxious Focused psych exam: ABSENT: psychomotor agitation, restlessness Skin exam: PRESENT: dry, intact, normal color, warm. ABSENT: cyanosis, mottled, pallor, rash Tubes/Lines: ABSENT: Endotracheal Tube, Chest Tube, Central Line, Arterial Catheter, Dialysis catheter, Peg Tube, Nasogastic Tube, Other Laboratory/Radiographs Laboratory Results: 05/17/19 04:10 05/17/19 04:10 05/17/19 05/17/19 04:10 04:10 WBC 9.5 RBC 3.48 L Hgb 10.9 L Hct 33.6 L MCV 97 MCH 31.2 MCHC 32.3 RDW 17.3 H Plt Count 192 Seg Neutrophils % 85.4 H Sodium 139.8 Potassium 5.2 H Chloride 107 Carbon Dioxide 23 Anion Gap 10 BUN 63 H Creatinine 2.82 H Est GFR ( Amer) 27 L Glucose 284 H Calcium 8.5 Phosphorus 4.8 H Magnesium 1.6 05/13/19 12:55 Troponin I 0.445 NT-Pro-B Natriuret Pep 26105 H Impressions: Head CT 05/13/19 13:37 IMPRESSION: NO ACUTE INTRACRANIAL IMAGING FINDINGS. EVIDENCE OF ACUTE STROKE: NO. Chest X-Ray 05/17/19 06:00 IMPRESSION: Small to moderate size bilateral pleural effusions with bibasilar airspace disease, atelectasis versus pneumonia. All labs, radiographs, diagnostic studies and EKGs were personally reviewed: Yes In addition, reports of radiographic and diagnostic studies were read: Yes Assessment and Plan - Diagnosis (1) Acute respiratory failure with hypoxia and hypercapnia Is this a current diagnosis for this admission?: Yes Plan: Slightly worse today. Patient at risk for worsening hypercarbia if he continues to refuse BiPAP. Will attempt High-terrell at night. (2) Acute and chronic respiratory failure ([id number]) Qualifiers: Respiratory failure complication: hypoxia and hypercapnia Qualified Code(s): J96.21 - Acute and chronic respiratory failure with hypoxia; J96.22 - Acute and chronic respiratory failure with hypercapnia Is this a current diagnosis for this admission?: Yes Plan: Patient refusing night time Bipap, concern for hypercarbia. May agree to Bipap. Will order thoracentesis for AM (3) Acute on chronic renal failure Qualifiers: Acute renal failure type: with other specified pathological lesion Chronic kidney disease stage: stage 5, not on chronic dialysis Qualified Code(s): N17.8 - Other acute kidney failure; N18.5 - Chronic kidney disease, stage 5 Is this a current diagnosis for this admission?: Yes Plan: Continues to improve. Continue low-dose IV fluids. Have D/C'd barnett. Continue every 4 hour bladder scan checks (4) Acute metabolic encephalopathy Is this a current diagnosis for this admission?: Yes Plan: Resolved. Has risk for recurrence without BiPap or if he develops hypoxia. Have added Oxygen maximizer until fluid can be drained (5) Acute retention of urine Is this a current diagnosis for this admission?: Yes Plan: Removed barnett catheter, bladder scan (6) Mild pulmonary arterial systolic hypertension Is this a current diagnosis for this admission?: Yes Plan: Known prior to admission. PA catheter last admission with MAP >25. PAPs in upper 30-40 mmHg. Treatment is directed toward control of pulmonary issues (7) COPD exacerbation Is this a current diagnosis for this admission?: Yes Plan: Improving. Continue weaning steroids. Continue supplemental O2 and increase duri ng activity as need. Needs pulmonary rehab. Will need this at home. (8) Pleural effusion on right Is this a current diagnosis for this admission?: Yes Plan: Evaluated on US. Mild, with consolidation on US. Follow up xray unchanged. Recurrent. I am suspicious for malignancy Plan Summary: 05.17.19: Patient is slightly worse today and I believe this is related to atelectasis from the effusion on the right side. His chest x-ray has not dramatically improved. He is responded well to IV fluids. I am unsure that this may not represent an heart failure with preserved ejection fraction situation. In addition this also may be pathologic pleural effusion. Patient has been on apixaban and has renal dysfunction. I have discontinued this today in hopes to obtain thoracentesis. Given the complexity of asked interventional radiology to attempt to drain. Notably we will check cytology and parameters for lights criteria. His last thoracentesis drained approximately 1 L. He does not appear to have any liver dysfunction to be able to relate this etiologically to the liver. Given the changes on chest x-ray and previous CAT scan it may be advisable for the patient have a bronchoscopy but this will need to be when he has improved. We will continue antibiotics for at least 7 days. Barnett catheter has been removed and patient does not appear to have any bladder outlet obstruction. If this does recur occur it may be best to discontinue the Trelegy to remove the parasympathetic process. Patient is anxious to go home and minimizes his symptoms. We have encouraged him to stay. Apparently when he was given nicotine patch on his last admission this caused him to be very anxious. Continues to refuse BiPAP. He may be a candidate for high flow and will order this for tonight. 05.16.19: Patient has been refusing his BiPAP at night. He states that he feels much better. He did have some degree of oxygen desaturation while walking yesterday and had been able to tolerate this better today. Notably, after any activity, he does develop some degree of dyspnea. His chest x-ray was notable for small effusion and consolidation on the right and antibiotics have been started. Will follow a repeat chest x-ray. Patient had urinary retention requiring a Barnett catheter. We have remove this and will follow a bladder scan and for clinical symptoms. His PSA is not elevated. He has been started on antibiotics and we will continue them pending x-ray changes. His effusion is not large enough to attempt to interrogate but will continue to monitor and follow. We will continue's present and supportive care. He has had an echocardiogram which was negative for failure. Given his recurrent effusions he may be a candidate for heart failure with preserved ejection fraction. He is seen as an outpatient by Dr. Sanchez. Patient does have some small degree of pulmonary hypertension. He has atrial fibrillation and has been placed back on his apixaban. Subcutaneous DVT chemical prophylaxis has been discontinued. We will continue supportive care including physical therapy. He is under consideration for pulmonary rehab given his extensive COPD Appreciate case management and social work assistance with his care. Far as his acute kidney dysfunction, this has improved. We have reduced his IV fluids. We will continue to monitor and follow accordingly. Appreciate the assistance of the nephrology service. 05.15.19: Patient's dyspnea has had some subjective improvement. He minimizes his symptoms including his bladder outlet upper obstruction. I am concerned that his symptomatology and signs of respiratory failure may be missed. He was able to ambulate around the ICU today with oxygen and I have downgraded him to floor status. He will need to maintain BiPAP at night and I am concerned that he will require oxygen supplementation when discharged. 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 There also appears to be evidence of early bronchial dilation which may be consistent with early bronchiectasis. He does have a pleural effusion on the right but it is small. The right lung appears to have consolidation and this may represent a postobstructive pneumonia. When he is improved we will need to have him follow-up with pulmonary service for an outpatient bronchoscopy. Patient has a history of atrial flutter and this was confirmed by discussion with Dr. Sanchez today. I have restarted his apixaban. He also has a history of chronic neuropathic pain and I have restarted his Neurontin albeit at a lower dose. Will need to have urological follow-up and the plan is to discontinue the Barnett hopefully in the next 24 hours and then reevaluate bladder fullness based on a bladder scan. If there is urinary retention he will need an indwelling chronic Barnett until seen by urology. We will continue supportive care. Discussion about smoking was also carried out. I have added antibiotics to his armamentarium in hopes that an occult infection will be relieved. Unfortunately we do not have procalcitonin to be able to evaluate for infectious versus simply inflammatory pneumonitis. 11.18.19 Patient has improved and has been weaned down to nasal cannula oxygen. Will order baseline ABG on this nasal cannula. The patient has acute urinary outlet obstruction. There is a strong concern t hat this is been chronic and ongoing. This may be the reason for his transition to CKD 4-5. The patient examines for dehydration. Have provided IV fluids and will follow his creatinine with this. He has had a slow insidious decline in his GFR and review of his records. In review of his last admission patient had a pulmonary artery catheter placed. He does fulfill criteria for mild pulmonary hypertension. I reviewed his CT scan which did show a pleural effusion. The pleural effusion appears to be transudate of based on light's criteria. He has a small effusion on chest x-ray this time but not significant. Will evaluate with ultrasound. His pulmonary hypertension would be related to his COPD which places him at the who class III classification. No treatment other than supportive care at this point would be required. The patient continues to smoke despite his advanced COPD. Discussed his case and smoking with him for an extended period of time. He is not a candidate for home oxygen if he continues to smoke and this has been discussed. Will provide BiPAP at night and as needed for any respiratory distress or any CO2 narcosis. Continue to provide supportive care with in the ICU. Have started nicotine placement patch. Follow urine analysis. Critical Time Critical Time (minutes): 0 - [id number] Level of Care: TELE Anticipated discharge: Acute Rehab Within: within 48 hours -: 1. The care of a critical patient is a dynamic process. This note is a loan servicing representative synopsis but static in nature. The timeframe for treatments given in order is not necessary the actual time these treatments may have been done. 2. This patient requires critical care secondary to ongoing requirements for therapy not offered or safe outside the critical care environment. Transfer to a lower level of care with altered life or limb morbidity and mortality. 3. Multidisciplinary rounds completed. 4. ABCDE bundle addressed.
[2019-05-17] MEDS: INSULIN GLARGINE,HUM.REC.ANLOG 1,000 UNIT/10 ML VIAL SUBCUT SCH (17:31)
[2019-05-17] MEDS ORDERED: INSULIN GLARGINE,HUM.REC.ANLOG 1,000 UNIT/10 ML VIAL SUBCUT SCH ×2 (18:00)
[2019-05-17] MEDS: MELATONIN 5 MG TABLET PO SCH (21:26)
[2019-05-18] MEDS: INSULIN REG, HUMAN 100 UNIT/ML 3 ML VIAL (PYX) SUBCUT SCH ×4 (01:58→17:10)
[2019-05-18 04:56] LABS: ABSOLUTE LYMPHOCYTES (AUTO) 0.7 10^3/uL (0.5-4.7); ABSOLUTE MONOCYTES (AUTO) 0.7 10^3/uL (0.1-1.4); BASOPHILS % (AUTO) 0.3 % (0-2); EOSINOPHILS % (AUTO) 0.1 % (0-6); HEMATOCRIT 36.5 % (37.9-51.0); LYMPHOCYTES % (AUTO) 6.8 % (13-45); MEAN CORPUSCULAR HEMOGLOBIN 31.9 pg (27.0-33.4); MEAN CORPUSCULAR HGB CONC 32.7 g/dL (32.0-36.0); MEAN CORPUSCULAR VOLUME 98 fl (80-97); MONOCYTES % (AUTO) 6.4 % (3-13); PLATELET COUNT 171 10^3/uL (150-450); RED BLOOD COUNT 3.75 10^6/uL (4.35-5.55); RED CELL DISTRIBUTION WIDTH 18.1 % (11.5-14.0); SEGMENTED NEUTROPHILS % (AUTO) 86.4 % (42-78); TOTAL CELLS COUNTED % (AUTO) 100 %; WHITE BLOOD COUNT 10.4 10^3/uL (4.0-10.5)
[2019-05-18 05:16] LABS: ANION GAP 10 (5-19); BLOOD UREA NITROGEN 58 mg/dL (7-20); CALCIUM 9.1 mg/dL (8.4-10.2); CARBON DIOXIDE 24 mmol/L (22-30); CHLORIDE 107 mmol/L (98-107); GLUCOSE 170 mg/dL (75-110); PHOSPHORUS 5.4 mg/dL (2.5-4.5); POTASSIUM 5.5 mmol/L (3.6-5.0); TOTAL PROTEIN 6.3 g/dL (6.3-8.2)
[2019-05-18 05:22] LABS: INTERNATIONAL RATION (INR) 1.18; PROTHROMBIN TIME 15.1 SEC (11.4-15.4)
[2019-05-18 05:23] LABS: PARTIAL THROMBOPLASTIN TIME 28.5 SEC (23.5-35.8)
[2019-05-18] MEDS: METHYLPREDNISOLONE INJ 40 MG/1 ML SDV IV SCH ×2 (06:53→17:10)
[2019-05-18] MEDS: INSULIN GLARGINE,HUM.REC.ANLOG 1,000 UNIT/10 ML VIAL SUBCUT SCH ×2 (06:53→19:07)
[2019-05-18] MEDS: ALBUTEROL SULFATE 0.083% NEB 2.5 MG/3 ML AMPUL NEB SCH ×4 (08:22→20:15)
--- NOTE | 2019-05-18 08:34 | RADIOLOGY REPORT (SQ) ---
EXAM DESCRIPTION: CHEST SINGLE VIEW COMPLETED DATE/TIME: 05/18/2019 6:24 am REASON FOR STUDY: effusion COMPARISON: None. EXAM PARAMETERS: NUMBER OF VIEWS: One view. TECHNIQUE: Single frontal radiographic view of the chest acquired. RADIATION DOSE: NA LIMITATIONS: None. FINDINGS: LUNGS AND PLEURA: Unchanged basilar predominant bilateral pleural and parenchymal opacitie s. There is no pneumothorax. MEDIASTINUM AND HILAR STRUCTURES: Stable mediastinal and hilar contours. HEART AND VASCULAR STRUCTURES: Stable cardiac silhouette. The pulmonary vasculature is indistinct. BONES: No acute findings. HARDWARE: None in the chest. OTHER: No other significant finding. IMPRESSION: Unchanged radiographic appearance of the chest with basilar predominant bilateral pleura l and parenchymal opacities that could represent a combination of pleural fluid, atelectasis and/or p neumonia. Correlation with clinical findings is recommended. TECHNICAL DOCUMENTATION: JOB ID: [id number] [employer]- All Rights Reserved Reading location - IP/workstation name: [email or web address]
[2019-05-18] MEDS: METOPROLOL TARTRATE 50 MG TABLET PO SCH ×2 (09:00→21:53)
[2019-05-18] MEDS: MEROPENEM 1 GM in NORMAL SALINE 50 ML IV SCH ×2 (09:00→21:53)
[2019-05-18] MEDS: ISOSORBIDE MONONITRATE 60 MG TAB.ER.24H PO SCH (09:00)
[2019-05-18] MEDS: AMLODIPINE BESYLATE 10 MG TABLET PO SCH (09:01)
[2019-05-18] MEDS: FERROUS SULFATE 325 MG TABLET PO SCH (09:01)
[2019-05-18] MEDS: LINEZOLID 600 MG TABLET PO SCH ×2 (11:31→21:53)
[2019-05-18 11:45] LABS: APPEARANCE,URINE CLOUDY; BILIRUBIN,URINE NEGATIVE (NEGATIVE); COLOR,URINE YELLOW; GLUCOSE, URINE NEGATIVE (NEGATIVE); KETONES,URINE NEGATIVE (NEGATIVE); PROTEIN,URINE 100 mg/dL (NEGATIVE); URINE SPECIFIC GRAVITY 1.016; UROBILINOGEN,URINE NEGATIVE mg/dL (<2.0)
[2019-05-18 15:39] LABS: FLUID APPEARANCE CLEAR; FLUID COLOR LIGHT YELLOW; FLUID SOURCE LUNG; FLUID TYPE PLEURAL; FLUID VISCOSITY LIQUID
--- NOTE | 2019-05-18 15:48 | PDOC CRITICAL CARE PROG REPORT ---
General Date:: 05/18/19 ICU Day:: 6 Ventilator Day:: 0 Hospital Day:: 7 Events in the past 12 to 24 Hours:: Reason for ICU Addmission:: For cardiac and metabolic acidosis with acute exacerbation of COPD related to hypoxic and hypercarbic respiratory failure 05.18.19: Patient continues to refuse his BiPAP. We placed him on high flow last evening to facilitate better lung recruitment. He has no complaints today. He has had no bladder outlet obstruction and no increase on the bladder scan. 05.17.19: Barnett removed. Able to urinate. Bladder scan does not show retention. Patient develops dyspnea with activity requiring higher level of oxygen therapy. Review of systems relevant to events:: Patient was able to ambulate yesterday and today. Some slight dyspnea with exertion. Still has Barnett catheter in place. Patient denies any urinary retention. 05.16.19: Patient continues to refuse his BiPAP and becomes agitated at times regarding this. And asked about his smoking he says he has stopped. When asked how long ago this occurred he states that it was on the day of admission. There has been no hemodynamic instability or fever. Review of systems relevant to events:: Bedside critical care ultrasound done which showed a significant effusion on the right side with consolidation of the lung. Patient minimizes his dyspnea and states that he is well enough to go home. Denies any difficulty urinating area Reason for ICU Addmission:: For cardiac and metabolic acidosis with acute exacerbation of COPD related to hypoxic and hypercarbic respiratory failure Review of systems relevant to events:: Patient denies chest pain shortness of breath. He tolerated his diet. He is si tting upright and eating during evaluation. Reason for ICU Addmission:: For cardiac and metabolic acidosis with acute exacerbation of COPD related to hypoxic and hypercarbic respiratory failure - Medications: Medications reviewed and adjusted accordingly: Yes Vasopressors:: None Sedation:: None Physical Exam Vital Signs: Temp Pulse Resp BP Pulse Ox 97.8 F 76 26 H 150/76 H 93 05/17/19 03:48 05/17/19 21:25 05/18/19 07:14 05/18/19 07:14 05/18/19 07:14 Intake & Output 05/17/19 05/18/19 05/19/19 06:59 06:59 06:59 Intake Total 1100 1100 Output Total 870 1265 Balance 230 -165 Weight 97.1 kg 97.5 kg Weight/Height Weight 97.5 kg Height 6 ft General appearance: PRESENT: no acute distress, cooperative, well-developed, well-nourished Exam: Nontoxic slightly anxious 68-year-old white male no acute distress awake alert oriented x3 anxious to go home Head exam: PRESENT: atraumatic, normocephalic Eye exam: PRESENT: conjunctiva pink, EOMI, PERRLA. ABSENT: scleral icterus Ear exam: PRESENT: normal external ear exam Mouth exam: PRESENT: moist Teeth exam: PRESENT: poor dentation Neck exam: ABSENT: carotid bruit, JVD, lymphadenopathy, thyromegaly Respiratory exam: PRESENT: clear to auscultation zachariah, unlabored. ABSENT: accessory muscle use, rales, rhonchi, tachypnea, wheezes Cardiovascular exam: PRESENT: RRR, +S1, +S2. ABSENT: systolic murmur Pulses: PRESENT: +1 pedal pulses bilateral GI/Abdominal exam: PRESENT: normal bowel sounds, soft. ABSENT: distended, guarding, mass, organolmegaly, rebound, tenderness Rectal exam: PRESENT: deferred Extremities exam: PRESENT: full ROM. ABSENT: calf tenderness, clubbing, pedal edema Musculoskeletal exam: PRESENT: normal inspection. ABSENT: deformity, dislocation Neurological exam: PRESENT: alert, awake, oriented to person, oriented to place, oriented to time, oriented to situation, CN II-XII grossly intact. ABSENT: motor sensory deficit Psychiatric exam: PRESENT: anxious - mild. ABSENT: manic, unusual affect Focused psych exam: ABSENT: pressured speech, psychomotor agitation, restlessness Skin exam: PRESENT: dry, intact, normal color, warm. ABSENT: cyanosis, mottled, rash Tubes/Lines: ABSENT: Endotracheal Tube, Chest Tube, Central Line, Arterial Catheter, Dialysis catheter, Peg Tube, Nasogastic Tube, Other Laboratory/Radiographs Laboratory Results: 05/18/19 04:22 05/18/19 04:22 05/18/19 05/18/19 04:22 04:22 WBC 10.4 RBC 3.75 L Hgb 12.0 L Hct 36.5 L MCV 98 H MCH 31.9 MCHC 32.7 RDW 18.1 H Plt Count 171 Seg Neutrophils % 86.4 H Sodium 140.8 Potassium 5.5 H Chloride 107 Carbon Dioxide 24 Anion Gap 10 BUN 58 H Creatinine 2.37 H Est GFR ( Amer) 33 L Glucose 170 H Calcium 9.1 Phosphorus 5.4 H Magnesium 1.6 Total Protein 6.3 05/13/19 12:55 Troponin I 0.445 NT-Pro-B Natriuret Pep 68384 H Impressions: Head CT 05/13/19 13:37 IMPRESSION: NO ACUTE INTRACRANIAL IMAGING FINDINGS. EVIDENCE OF ACUTE STROKE: NO. Chest X-Ray 05/18/19 06:00 IMPRESSION: Unchanged radiographic appearance of the chest with basilar predominant bilateral pleural and parenchymal opacities that could represent a combination of pleural fluid, atelectasis and/or pneumonia. Correlation with clinical findings is recommended. All labs, radiographs, diagnostic studies and EKGs were personally reviewed: Yes In addition, reports of radiographic and diagnostic studies were read: Yes Assessment and Plan - Diagnosis (1) Acute respiratory failure with hypoxia and hypercapnia Is this a current diagnosis for this admission?: Yes Plan: Improved after thoracentesis. Patient at risk for worsening hypercarbia High- terrell at night. (2) Acute and chronic respiratory failure ([id number]) Qualifiers: Respiratory failure complication: hypoxia and hypercapnia Qualified Code(s): J96.21 - Acute and chronic respiratory failure with hypoxia; J96.22 - Acute and chronic respiratory failure with hypercapnia Is this a current diagnosis for this admission?: Yes Plan: Patient refusing night time Bipap, concerned for hypercarbia. Improved after thoracentesis. Using High-terrell at night (3) Acute on chronic renal failure Qualifiers: Acute renal failure type: with other specified pathological lesion Chronic kidney disease stage: stage 5, not on chronic dialysis Qualified Code(s): N17.8 - Other acute kidney failure; N18.5 - Chronic kidney disease, stage 5 Is this a current diagnosis for this admission?: Yes Plan: Continues to improve. Stop IV fluids. Have D/C'd barnett. Watch for urinary retention. Had frequency in urine with complete badder emptying (4) Acute metabolic encephalopathy Is this a current diagnosis for this admission?: Yes Plan: Resolved. Has risk for recurrence without BiPap or if he develops hypoxia. (5) Acute retention of urine Is this a current diagnosis for this admission?: Yes Plan: Resolved (6) Mild pulmonary arterial systolic hypertension Is this a current diagnosis for this admission?: Yes Plan: Known prior to admission. PA catheter last admission with MAP >25. PAPs in upper 30-40 mmHg. Treatment is directed toward control of pulmonary issues (7) COPD exacerbation Is this a current diagnosis for this admission?: Yes Plan: Improving. Continue to wean steroids. Continue supplemental O2 and increase during activity as need. Needs pulmonary rehab. Will need home O2 (8) Pleural effusion on right Is this a current diagnosis for this admission?: Yes Plan: Evaluated on US. Had thoracentesis. Labs sent. Suspicious for malignancy (9) Hyperglycemia due to type 2 diabetes mellitus Qualifiers: Diabetes mellitus care home insulin use: without care home use Qualified Code(s): E11.65 - Type 2 diabetes mellitus with hyperglycemia Is this a current diagnosis for this admission?: Yes Plan: Watch on steroid reduction. Plan Summary: Patient continues to improve and is much better now post thoracentesis. His hyperglycemia has been difficult to control with the use of steroids. We are continuing to reduce this and supplementing with insulin therapy. Even his renal failure we have been unable to use Glucophage or other diabetic agents. Careful attention to hypoglycemia will need to be maintained as the steroids are being reduced. I am concerned the patient has a postobstructive pneumonia and will continue antibiotics. He does need to be evaluated by pulmonary service for possible bro nchoscopy evaluation. Of necessity, analysis of the thoracentesis pleural fluid will need to be lucio ied out and these orders have been placed. Patient has significant COPD and will most likely need home oxygen therapy. Has been working with physical therapy but needs a higher oxygen flow during therapy. Follow-up items include: Fluid analysis from thoracentesis Bronchoscopy with concern for endobronchial lesion Control of smoking--patient becomes more anxious with nicotine patch Home oxygen therapy Critical Time Critical Time (minutes): 0 - [id number] Level of Care: TELE Anticipated discharge: Acute Rehab Within: within 48 hours -: 1. The care of a critical patient is a dynamic process. This note is a customer service representative synopsis but static in nature. The timeframe for treatments given in order is not necessary the actual time these treatments may have been done. 2. This patient requires critical care secondary to ongoing requirements for therapy not offered or safe outside the critical care environment. Transfer to a lower level of care with altered life or limb morbidity and mortality. 3. Multidisciplinary rounds completed. 4. ABCDE bundle addressed.
--- NOTE | 2019-05-18 16:34 | RADIOLOGY REPORT (SQ) ---
EXAM DESCRIPTION: CHEST SINGLE VIEW COMPLETED DATE/TIME: 05/18/2019 2:26 pm REASON FOR STUDY: POST THORA RIGHT PLEURAL EFFUSION COMPARISON: AP view of the chest from 05/18/2019. EXAM PARAMETERS: NUMBER OF VIEWS: One view. TECHNIQUE: Single frontal radiographic view of the chest acquired. RADIATION DOSE: NA LIMITATIONS: None. FINDINGS: Status post thoracentesis. There is no postprocedural pneumothorax. There are persistent bibasilar pleural and parenchymal opacities that are presumed to represent a combination of pleural fluid and atelectasis; clinical correlation to exclude an infection is recommended. The cardiac silh ouette is obscured. The pulmonary vasculature is indistinct. There is no acute osseous abnormality of the imaged osseous structures. IMPRESSION: No postprocedural pneumothorax. TECHNICAL DOCUMENTATION: JOB ID: [id number] [employer]- All Rights Reserved Reading location - IP/workstation name: [email or web address]
--- NOTE | 2019-05-18 16:52 | RADIOLOGY REPORT (SQ) ---
EXAM DESCRIPTION: U/S THORACENTESIS WITH IMAGING COMPLETED DATE/TIME: 05/18/2019 2:28 pm REASON FOR STUDY: pleural effusion COMPARISON: None. RADIATION DOSE: None. LIMITATIONS: None. PROCEDURE: The procedure, risks, benefits, and alternatives were discussed with the patient and the patient's family who then gave written consent. The right chest wall was then marked utilizing sonog raphic guidance and a time-out was performed to document correct marking verification. The area around the selected percutaneous access site was then prepped and draped with 2% chlorhexidi ne utilizing standard sterile technique. After that, the selected access site was infiltrated with 5 ml of 1% lidocaine. A 5 Fr Tlem-L-Tbulsuuj catheter was then introduced into the left pleural space and the fluid was aspirated. After the fluid was aspirated, the catheter was removed and the entry s ite was covered with a sterile bandage. No immediate complications were noted. Images acquired during the procedure were stored on PACS. The patient tolerated the procedure with local anesthesia. At the end of the procedure the patient's condition was unchanged from the preprocedural baseline. Documentation of [id number] time the proceduralist spent monitoring the patient: 15 minutes. FINDINGS: ENTRY SITE: Posterior right chest. FLUID VOLUME: 1000 mL. FLUID ANALYSIS: Straw-colored. OTHER: Fluid was collected for analysis. IMPRESSION: Successful ultrasound-guided thoracentesis. COMMENT: Patient medication list reviewed: Yes- Quality ID# [id number]:Eligible professional attests to doc umenting in the medical record they obtained, updated, or reviewed the patient's current medications. TECHNICAL DOCUMENTATION: JOB ID: [id number] [employer]- All Rights Reserved Reading location - IP/workstation name: [email or web address]
--- NOTE | 2019-05-18 16:54 | RADIOLOGY REPORT (SQ) ---
EXAM DESCRIPTION: CHEST SINGLE VIEW COMPLETED DATE/TIME: 05/18/2019 4:31 pm REASON FOR STUDY: POST THORA RIGHT PLEURAL EFFUSION COMPARISON: High-resolution chest CT 04/20/2019 Chest films 05/01/2019, 05/17/2019, 05/18/2019 EXAM PARAMETERS: NUMBER OF VIEWS: One view. TECHNIQUE: Single frontal radiographic view of the chest acquired. RADIATION DOSE: NA LIMITATIONS: None. FINDINGS: LUNGS AND PLEURA: 2 hours post left thoracentesis. No pneumothorax. There are persistent small bilateral pleural effusions. Bibasilar airspace disease is present atelec tasis versus pneumonia. MEDIASTINUM AND HILAR STRUCTURES: No masses. Contour normal. HEART AND VASCULAR STRUCTURES: Stable cardiomegaly. Pulmonary vascular prominence. BONES: No acute findings. HARDWARE: None in the chest. OTHER: No other significant finding. IMPRESSION: No pneumothorax 2 hours post left thoracentesis. Persistent small bilateral pleural effusions. Left basilar airspace disease likely atelectasis. Pne umonia could not be excluded. TECHNICAL DOCUMENTATION: JOB ID: [id number] [employer]- All Rights Reserved Reading location - IP/workstation name: [email or web address]
--- NOTE | 2019-05-18 17:06 | Progress Note ---
Provider Note Provider Note: Patient downgraded from ICU today onto my service. I have reviewed the chart and all patient medications. Patient has been seen and evaluated by me. When I went into patient's room, patient was eating with his high flow nasal cannula off and desatted to below 80%. Please back on high flow with improvement over 90s. Throughout patient did not complain of any shortness of breath. States that he is breathing fine currently. Denies chest pain. Physical exam shows stable vitals on high flow nasal cannula. Bilateral inspiratory crackles [left more than right], no wheezing, puncture site from right-sided thoracentesis without drainage or significant tenderness. Bilateral pedal edema. Patient is mentating well. Acute on chronic hypoxic and hypercapnic respiratory failure secondary to COPD exacerbation: Continue nebs and steroids. Condition improved since admission. Maintain on high flow nasal cannula as patient has been refusing BiPAP. Right pleural effusion: S/B right thoracentesis today. Postthoracentesis x-ray showing no pneumothorax. I will follow-up thoracentesis labs. Acute on chronic kidney disease, improved Hyperkalemia secondary to kidney failure. Will give a dose of Veltassa now. Bilateral pneumonia: Plan is for 7 days of antibiotics. Currently on linezolid and meropenem. Will need to see Dr. Mejia for possible bronchoscopy given suspicion for postobstructive pneumonia/lung lesion. Diabetes mellitus: Continue insulin regimen. Cannot use metformin given renal failure. Urinary retention
[2019-05-18] MEDS ORDERED: PATIROMER 8.4 GM SUSP PACKET PO ONE (18:00)
[2019-05-18] MEDS: MELATONIN 5 MG TABLET PO SCH (21:53)
[2019-05-18] MEDS: 1/2 NORMAL SALINE 1,000 ML IV PRN (21:53)
[2019-05-19] MEDS: INSULIN REG, HUMAN 100 UNIT/ML 3 ML VIAL (PYX) SUBCUT SCH ×4 (01:40→17:08)
[2019-05-19 05:57] LABS: ABSOLUTE BASOPHILS # (AUTO) 0.1 10^3/uL (0.0-0.2); ABSOLUTE LYMPHOCYTES (AUTO) 1.2 10^3/uL (0.5-4.7); ABSOLUTE MONOCYTES (AUTO) 0.8 10^3/uL (0.1-1.4); ABSOLUTE NEUT (AUTO) 8.3 10^3/uL (1.7-8.2); BASOPHILS % (AUTO) 0.7 % (0-2); HEMATOCRIT 36.6 % (37.9-51.0); HEMOGLOBIN 11.9 g/dL (13.5-17.0); LYMPHOCYTES % (AUTO) 11.2 % (13-45); MEAN CORPUSCULAR HEMOGLOBIN 31.3 pg (27.0-33.4); MEAN CORPUSCULAR HGB CONC 32.4 g/dL (32.0-36.0); MEAN CORPUSCULAR VOLUME 97 fl (80-97); MONOCYTES % (AUTO) 8.2 % (3-13); PLATELET COUNT 159 10^3/uL (150-450); RED BLOOD COUNT 3.79 10^6/uL (4.35-5.55); RED CELL DISTRIBUTION WIDTH 17.3 % (11.5-14.0); SEGMENTED NEUTROPHILS % (AUTO) 79.9 % (42-78); TOTAL CELLS COUNTED % (AUTO) 100 %; WHITE BLOOD COUNT 10.4 10^3/uL (4.0-10.5)
[2019-05-19] MEDS: METHYLPREDNISOLONE INJ 40 MG/1 ML SDV IV SCH ×2 (06:14→17:29)
[2019-05-19] MEDS: INSULIN GLARGINE,HUM.REC.ANLOG 1,000 UNIT/10 ML VIAL SUBCUT SCH ×2 (06:18→17:30)
[2019-05-19 06:20] LABS: ALBUMIN 3.3 g/dL (3.5-5.0); ALKALINE PHOSPHATASE 146 U/L (38-126); ANION GAP 7 (5-19); ASPARTATE AMINO TRANSFERASE 56 U/L (17-59); BILIRUBIN,DIRECT 0.3 mg/dL (0.0-0.4); BILIRUBIN,TOTAL 0.7 mg/dL (0.2-1.3); BLOOD UREA NITROGEN 63 mg/dL (7-20); CALCIUM 9.2 mg/dL (8.4-10.2); CARBON DIOXIDE 25 mmol/L (22-30); CHLORIDE 108 mmol/L (98-107); GLUCOSE 106 mg/dL (75-110); PHOSPHORUS 5.4 mg/dL (2.5-4.5); POTASSIUM 5.6 mmol/L (3.6-5.0)
[2019-05-19] MEDS: ALBUTEROL SULFATE 0.083% NEB 2.5 MG/3 ML AMPUL NEB SCH ×4 (08:33→20:30)
[2019-05-19] MEDS: METOPROLOL TARTRATE 50 MG TABLET PO SCH ×2 (10:24→21:52)
[2019-05-19] MEDS: FERROUS SULFATE 325 MG TABLET PO SCH (10:24)
[2019-05-19] MEDS: ISOSORBIDE MONONITRATE 60 MG TAB.ER.24H PO SCH (10:25)
[2019-05-19] MEDS: AMLODIPINE BESYLATE 10 MG TABLET PO SCH (10:25)
[2019-05-19] MEDS: LINEZOLID 600 MG TABLET PO SCH ×2 (10:25→21:52)
[2019-05-19] MEDS: MEROPENEM 1 GM in NORMAL SALINE 50 ML IV SCH ×2 (10:26→21:49)
[2019-05-19] MEDS: PATIROMER 8.4 GM SUSP PACKET PO SCH (11:09)
--- NOTE | 2019-05-19 14:06 | PDOC PROGRESS REPORT ---
Subjective Progress Note for:: 05/19/19 Subjective:: Patient states that he slept comfortably with high flow. Currently denies any shortness of breath. States that he would like to leave soon. Denies any chest pain fevers or chills. I informed patient that he is still requiring a lot of oxygen and we will try to down titrate his oxygen gently. Reason For Visit: COPD EXACERBATON,ACUTE RESPIRATORY FAILURE WITH Physical Exam Vital Signs: Temp Pulse Resp BP Pulse Ox 98.5 F 87 18 153/69 H 88 L 05/19/19 12:03 05/19/19 12:41 05/19/19 12:41 05/19/19 12:03 05/19/19 12:41 Intake & Output 05/18/19 05/19/19 05/20/19 06:59 06:59 06:59 Intake Total 1100 1440 170 Output Total 1265 750 275 Balance -165 690 -105 Weight 97.5 kg 97.1 kg General appearance: PRESENT: no acute distress Neck exam: ABSENT: JVD Respiratory exam: PRESENT: prolonged expiratory phas, rhonchi, symmetrical, unlabored. ABSENT: tachypnea Cardiovascular exam: PRESENT: RRR, +S1, +S2. ABSENT: systolic murmur, tachy cardia GI/Abdominal exam: PRESENT: normal bowel sounds, soft. ABSENT: rebound, rigid, tenderness Musculoskeletal exam: PRESENT: ambulatory Neurological exam: PRESENT: alert, awake, oriented to person, oriented to place, oriented to time Psychiatric exam: ABSENT: agitated Results Laboratory Results: 05/19/19 05:32 05/19/19 05:32 05/18/19 05/19/19 05/19/19 14:00 05:32 05:32 WBC 10.4 RBC 3.79 L Hgb 11.9 L Hct 36.6 L MCV 97 MCH 31.3 MCHC 32.4 RDW 17.3 H Plt Count 159 Seg Neutrophils % 79.9 H Sodium 140.0 Potassium 5.6 H Chloride 108 H Carbon Dioxide 25 Anion Gap 7 BUN 63 H Creatinine 2.23 H Est GFR ( Amer) 36 L Glucose 106 Calcium 9.2 Phosphorus 5.4 H Magnesium 1.6 Total Bilirubin 0.7 AST 56 Alkaline Phosphatase 146 H Total Protein 6.0 L Albumin 3.3 L Fluid Type PLEURAL Fluid Source LUNG Fluid Color LIGHT YELLOW Fluid Appearance CLEAR Fluid Viscosity LIQUID Fluid WBC 168 Fluid RBC 55 05/13/19 15:15 Blood Blood Culture - Final NO GROWTH IN 5 DAYS 05/13/19 12:55 Blood Blood Culture - Final NO GROWTH IN 5 DAYS 05/13/19 12:55 Troponin I 0.445 NT-Pro-B Natriuret Pep 05299 H Impressions: Head CT 05/13/19 13:37 IMPRESSION: NO ACUTE INTRACRANIAL IMAGING FINDINGS. EVIDENCE OF ACUTE STROKE: NO. Thoracentesis Ultrasound 05/18/19 00:00 IMPRESSION: Successful ultrasound-guided thoracentesis. Chest X-Ray 05/18/19 16:00 IMPRESSION: No pneumothorax 2 hours post left thoracentesis. Persistent small bilateral pleural effusions. Left basilar airspace disease likely atelectasis. Pneumonia could not be excluded. Assessment and Plan - Diagnosis (1) Acute on chronic respiratory failure with hypoxia and hypercapnia Is this a current diagnosis for this admission?: Yes Plan: Secondary to COPD with some contribution from pleural effusions and pneumonia. High flow nasal cannula currently. We will de-escalate FiO2 as tolerated. He will ultimately need home oxygen at time of discharge. (2) COPD exacerbation Is this a current diagnosis for this admission?: Yes Plan: -Improving. -Continue to wean steroids. -Continue supplemental O2 and neb treatments. Needs pulmonary rehab. Will need home O2 (3) Acute kidney injury superimposed on chronic kidney disease Is this a current diagnosis for this admission?: Yes Plan: -Improved. Was seen by nephrology who suspects that it is likely secondary to recent VIDYA noted on last admission worsened by volume depletion and urinary retention [urinary retention has now resolved] -Currently close to baseline. -Gentle hydration for now I will continue to trend BMP. Continue to hold Lasix. (4) Mild pulmonary arterial systolic hypertension Is this a current diagnosis for this admission?: Yes Plan: -Known prior to admission. PA catheter last admission with MAP >25. PAPs in upper 30-40 mmHg. -TTE in February 2019 showed EF of 65%, normal systolic and diastolic function of LV, normal RV function and size. -Treatment is directed toward control of pulmonary issues for type III pulmonary hypertension (5) Pleural effusion on right Is this a current diagnosis for this admission?: Yes Plan: Thoracentesis done on 05/18/2019. Follow-up chest x-ray without pneumothorax. -Follow-up thoracentesis fluid analysis and cytology (6) Diabetes mellitus type 2 in nonobese Is this a current diagnosis for this admission?: Yes Plan: -Continue Lantus 20 units every 12 hours [home regimen increased from 15 units every 12 hours] -Patient should not be taking metformin anymore given renal function. (7) Hyperkalemia Is this a current diagnosis for this admission?: Yes Plan: -Secondary to renal dysfunction. -Continues to stay elevated. Please on Veltassa. (8) Healthcare associated bacterial pneumonia Is this a current diagnosis for this admission?: Yes Plan: Continue with linezolid and meropenem [started on 05/15/2019]. Plan is for 7 days of antibiotics. - Time Time Spent with patient: 15-24 minutes
[2019-05-19] MEDS ORDERED: PATIROMER 8.4 GM SUSP PACKET PO ONE (17:21)
[2019-05-19] MEDS: 1/2 NORMAL SALINE 1,000 ML IV PRN (17:28)
[2019-05-19] MEDS: MELATONIN 5 MG TABLET PO SCH (21:52)
[2019-05-20] MEDS: INSULIN REG, HUMAN 100 UNIT/ML 3 ML VIAL (PYX) SUBCUT SCH ×4 (01:15→18:01)
[2019-05-20] MEDS ORDERED: FLUTICASONE NASAL SPRAY 50 MCG/SPRY 120 SPRAY/16 GM ONE (04:22)
[2019-05-20] MEDS: FLUTICASONE NASAL SPRAY 50 MCG/SPRY 120 SPRAY/16 GM NASL SCH ×2 (05:10→18:01)
[2019-05-20] MEDS: METHYLPREDNISOLONE INJ 40 MG/1 ML SDV IV SCH (05:10)
[2019-05-20] MEDS: INSULIN GLARGINE,HUM.REC.ANLOG 1,000 UNIT/10 ML VIAL SUBCUT SCH ×2 (06:45→18:19)
[2019-05-20 06:59] LABS: ANION GAP 9 (5-19); BLOOD UREA NITROGEN 67 mg/dL (7-20); CALCIUM 9.3 mg/dL (8.4-10.2); CARBON DIOXIDE 22 mmol/L (22-30); CHLORIDE 109 mmol/L (98-107); GLUCOSE 92 mg/dL (75-110); PHOSPHORUS 6.3 mg/dL (2.5-4.5); POTASSIUM 5.9 mmol/L (3.6-5.0)
[2019-05-20 07:16] LABS: ABSOLUTE BASOPHILS # (AUTO) 0.1 10^3/uL (0.0-0.2); ABSOLUTE EOSINOPHILS # (AUTO) 0.1 10^3/uL (0.0-0.6); ABSOLUTE LYMPHOCYTES (AUTO) 1.5 10^3/uL (0.5-4.7); ABSOLUTE MONOCYTES (AUTO) 0.9 10^3/uL (0.1-1.4); ABSOLUTE NEUT (AUTO) 8.4 10^3/uL (1.7-8.2); BASOPHILS % (AUTO) 0.7 % (0-2); EOSINOPHILS % (AUTO) 0.5 % (0-6); HEMATOCRIT 39.8 % (37.9-51.0); HEMOGLOBIN 12.8 g/dL (13.5-17.0); LYMPHOCYTES % (AUTO) 13.4 % (13-45); MEAN CORPUSCULAR HEMOGLOBIN 31.3 pg (27.0-33.4); MEAN CORPUSCULAR HGB CONC 32.1 g/dL (32.0-36.0); MEAN CORPUSCULAR VOLUME 98 fl (80-97); MONOCYTES % (AUTO) 8.1 % (3-13); PLATELET COUNT 145 10^3/uL (150-450); RED BLOOD COUNT 4.08 10^6/uL (4.35-5.55); RED CELL DISTRIBUTION WIDTH 18.2 % (11.5-14.0); SEGMENTED NEUTROPHILS % (AUTO) 77.3 % (42-78); TOTAL CELLS COUNTED % (AUTO) 100 %; WHITE BLOOD COUNT 10.8 10^3/uL (4.0-10.5)
[2019-05-20] MEDS: ALBUTEROL SULFATE 0.083% NEB 2.5 MG/3 ML AMPUL NEB SCH ×3 (08:58→20:13)
[2019-05-20] MEDS: AMLODIPINE BESYLATE 10 MG TABLET PO SCH (09:17)
[2019-05-20] MEDS: PATIROMER 8.4 GM SUSP PACKET PO SCH (09:17)
[2019-05-20] MEDS: MEROPENEM 1 GM in NORMAL SALINE 50 ML IV SCH ×2 (09:17→21:20)
[2019-05-20] MEDS: FERROUS SULFATE 325 MG TABLET PO SCH (09:17)
[2019-05-20] MEDS: PREDNISONE 20 MG TABLET PO SCH ×2 (09:17→21:24)
[2019-05-20] MEDS: LINEZOLID 600 MG TABLET PO SCH ×2 (09:17→21:24)
[2019-05-20] MEDS: ISOSORBIDE MONONITRATE 60 MG TAB.ER.24H PO SCH (09:18)
--- NOTE | 2019-05-20 15:11 | PDOC PROGRESS REPORT ---
Subjective Progress Note for:: 05/20/19 Subjective:: Patient states that he felt a little bit short of breath last night. Improved with the Flonase nasal spray. Seen today while eating. That time he volunteered no shortness of breath or chest pain. Reason For Visit: COPD EXACERBATON,ACUTE RESPIRATORY FAILURE WITH Physical Exam Vital Signs: Temp Pulse Resp BP Pulse Ox 97.9 F 72 20 146/62 H 88 L 05/20/19 03:53 05/20/19 14:00 05/20/19 12:27 05/20/19 03:53 05/20/19 12:27 Intake & Output 05/19/19 05/20/19 05/21/19 06:59 06:59 06:59 Intake Total 1440 1820 50 Output Total 750 1175 Balance 690 645 50 Weight 97.1 kg 96.4 kg Neck exam: ABSENT: JVD Respiratory exam: PRESENT: rhonchi, symmetrical, unlabored. ABSENT: tachypnea, wheezes Cardiovascular exam: PRESENT: RRR, +S1, +S2. ABSENT: tachycardia GI/Abdominal exam: PRESENT: normal bowel sounds, soft. ABSENT: rigid, tendernes s Neurological exam: PRESENT: alert, awake Results Laboratory Results: 05/20/19 06:00 05/20/19 06:00 05/18/19 05/18/19 05/18/19 14:00 14:00 14:00 WBC RBC Hgb Hct MCV MCH MCHC RDW Plt Count Seg Neutrophils % Sodium Potassium Chloride Carbon Dioxide Anion Gap BUN Creatinine Est GFR ( Amer) Glucose Calcium Phosphorus Fluid Glucose 175 Fluid Total Protein Fluid LDH 61 Fluid Amylase 13 05/18/19 05/20/19 05/20/19 14:00 06:00 06:00 WBC 10.8 H RBC 4.08 L Hgb 12.8 L Hct 39.8 MCV 98 H MCH 31.3 MCHC 32.1 RDW 18.2 H Plt Count 145 L Seg Neutrophils % 77.3 Sodium 140.3 Potassium 5.9 H Chloride 109 H Carbon Dioxide 22 Anion Gap 9 BUN 67 H Creatinine 2.15 H Est GFR ( Amer) 37 L Glucose 92 Calcium 9.3 Phosphorus 6.3 H Fluid Glucose Fluid Total Protein 1.4 Fluid LDH Fluid Amylase 05/18/19 14:00 Pleural Fluid - Right Pleural Effusion Gram Stain - Final 05/18/19 14:00 Pleural Fluid - Right Pleural Effusion AFB Smear Concentration - Final 05/18/19 14:00 Pleural Fluid - Right Pleural Effusion Acid Fast Bacilli Smear - Final 05/13/19 12:55 Troponin I 0.445 NT-Pro-B Natriuret Pep 44426 H Impressions: Head CT 05/13/19 13:37 IMPRESSION: NO ACUTE INTRACRANIAL IMAGING FINDINGS. EVIDENCE OF ACUTE STROKE: NO. Thoracentesis Ultrasound 05/18/19 00:00 IMPRESSION: Successful ultrasound-guided thoracentesis. Chest X-Ray 05/18/19 16:00 IMPRESSION: No pneumothorax 2 hours post left thoracentesis. Persistent small bilateral pleural effusions. Left basilar airspace disease likely atelectasis. Pneumonia could not be excluded. Assessment and Plan - Diagnosis (1) Acute on chronic respiratory failure with hypoxia and hypercapnia Is this a current diagnosis for this admission?: Yes Plan: -Secondary to COPD, pleural effusions and pneumonia. -Patient continues to require high flow nasal cannula. Patient tolerated nasal cannula at 6 L while sitting up today with SPO2 ranging from 91 to 94%. However whenever patient lays down, his SPO2 dropped into the 70s on 6 L nasal cannula. -Given patient's continued hypoxia, I will continue on high flow nasal cannula through the day with 50 flow rate to help with alveoli recruitment following compressive atelectasis from his pleural effusions. Hopefully will start to see result with this. Chest physiotherapy. BiPAP may have been more ideal but patient has refused to use BiPAP. -If no improvement in oxygenation by tomorrow we will repeat chest x-ray to reevaluate pleural effusions. (2) COPD exacerbation Is this a current diagnosis for this admission?: Yes Plan: -Improving. -Continue to wean steroids. -Continue supplemental O2 and neb treatments. Needs pulmonary rehab. Will need home O2 (3) Transudative pleural effusion Is this a current diagnosis for this admission?: Yes Plan: Effusion present since last admission for CHF. Thoracentesis done on this admission on 05/18/2019 yielded transudative fluid. He could have been caused by initial CHF last admission. -Follow-up cytology. -Would we will gently reintroduce p.o. diuresis. (4) Acute kidney injury superimposed on chronic kidney disease Is this a current diagnosis for this admission?: Yes Plan: -Improved. Was seen by nephrology who suspects that it is likely secondary to recent VIDYA noted on last admission worsened by volume depletion and urinary retention [urinary retention has now resolved] -Currently close to baseline. -continue to trend BMP. Continue to hold Lasix. (5) Mild pulmonary arterial systolic hypertension Is this a current diagnosis for this admission?: Yes Plan: -Known prior to admission. PA catheter last admission with MAP >25. PAPs in upper 30-40 mmHg. -TTE in February 2019 showed EF of 65%, normal systolic and diastolic function of LV, normal RV function and size. -Treatment is directed toward control of pulmonary issues for type III pulmonary hypertension (6) Diabetes mellitus type 2 in nonobese Is this a current diagnosis for this admission?: Yes Plan: -Continue Lantus 20 units every 12 hours [home regimen increased from 15 units every 12 hours] -Patient should not be taking metformin anymore given renal function. (7) Hyperkalemia Is this a current diagnosis for this admission?: Yes Plan: -Secondary to renal dysfunction. -Continues to stay elevated. Please on Veltassa. -Check EKG. Repeat BMP. (8) Healthcare associated bacterial pneumonia Is this a current diagnosis for this admission?: Yes Plan: Continue with linezolid and meropenem [started on 05/15/2019]. Plan is for 7 days of antibiotics. - Time Time Spent with patient: 15-24 minutes
[2019-05-20 16:21] LABS: ANION GAP 10 (5-19); BLOOD UREA NITROGEN 69 mg/dL (7-20); CALCIUM 9.4 mg/dL (8.4-10.2); CARBON DIOXIDE 23 mmol/L (22-30); CHLORIDE 106 mmol/L (98-107); GLUCOSE 146 mg/dL (75-110); POTASSIUM 5.9 mmol/L (3.6-5.0)
--- NOTE | 2019-05-20 17:20 | EKG REPORT ---
SEVERITY:- BORDERLINE ECG - SINUS RHYTHM LOW VOLTAGE IN FRONTAL LEADS BORDERLINE T ABNORMALITIES, INFERIOR LEADS : Confirmed by: Javed Rodriguez MD 20-May-2019 17:20:14
[2019-05-20] MEDS ORDERED: FUROSEMIDE INJ/PF 40 MG/4 ML SDV IV ONE (19:30)
[2019-05-20] MEDS ORDERED: PATIROMER 8.4 GM SUSP PACKET PO ONE (19:30)
[2019-05-20] MEDS: MELATONIN 5 MG TABLET PO SCH (21:24)
[2019-05-21] MEDS: INSULIN REG, HUMAN 100 UNIT/ML 3 ML VIAL (PYX) SUBCUT SCH ×4 (00:36→18:03)
[2019-05-21 06:04] LABS: ANION GAP 8 (5-19); BLOOD UREA NITROGEN 74 mg/dL (7-20); CALCIUM 9.3 mg/dL (8.4-10.2); CARBON DIOXIDE 25 mmol/L (22-30); CHLORIDE 110 mmol/L (98-107); GLUCOSE 87 mg/dL (75-110); PHOSPHORUS 6.1 mg/dL (2.5-4.5); POTASSIUM 5.8 mmol/L (3.6-5.0)
[2019-05-21] MEDS: FLUTICASONE NASAL SPRAY 50 MCG/SPRY 120 SPRAY/16 GM NASL SCH ×2 (06:05→17:46)
[2019-05-21] MEDS: INSULIN GLARGINE,HUM.REC.ANLOG 1,000 UNIT/10 ML VIAL SUBCUT SCH ×2 (06:29→18:03)
[2019-05-21] MEDS: ALBUTEROL SULFATE 0.083% NEB 2.5 MG/3 ML AMPUL NEB SCH ×3 (08:11→16:15)
[2019-05-21] MEDS: PATIROMER 8.4 GM SUSP PACKET PO SCH (09:23)
[2019-05-21] MEDS: FERROUS SULFATE 325 MG TABLET PO SCH (09:24)
[2019-05-21] MEDS: PREDNISONE 20 MG TABLET PO SCH (09:24)
[2019-05-21] MEDS: AMLODIPINE BESYLATE 10 MG TABLET PO SCH (09:24)
[2019-05-21] MEDS: LINEZOLID 600 MG TABLET PO SCH ×2 (09:24→22:12)
[2019-05-21] MEDS: METOPROLOL TARTRATE 50 MG TABLET PO SCH ×2 (09:24→22:13)
[2019-05-21] MEDS: ISOSORBIDE MONONITRATE 60 MG TAB.ER.24H PO SCH (09:24)
[2019-05-21] MEDS: MEROPENEM 1 GM in NORMAL SALINE 50 ML IV SCH ×2 (09:25→22:13)
[2019-05-21] MEDS: FUROSEMIDE 20 MG TABLET PO SCH (11:12)
--- NOTE | 2019-05-21 12:27 | RADIOLOGY REPORT (SQ) ---
EXAM DESCRIPTION: CHEST 2 VIEWS COMPLETED DATE/TIME: 05/21/2019 10:46 am REASON FOR STUDY: AP-Lateral for persistent Hypoxia. Effusion f/u COMPARISON: Chest films 05/01/2019, 05/13/2019, 05/18/2019 EXAM PARAMETERS: NUMBER OF VIEWS: two views TECHNIQUE: Digital Frontal and Lateral radiographic views of the chest acquired. RADIATION DOSE: NA LIMITATIONS: none FINDINGS: LUNGS AND PLEURA: Persistent left lower lobe consolidation/airspace disease atelectasis ve rsus pneumonia, similar compared to 05/18/2019. There is persistent left pleural fluid in the lateral and posterior costophrenic sulcus from residual pleural effusion, similar compared to 05/18/2019. At the right lung base, trace pleural fluid and basilar airspace disease is present atelectasis versu s pneumonia. This is less prominent than on previous films. No right or left pneumothorax. MEDIASTINUM AND HILAR STRUCTURES: No masses or contour abnormalities. HEART AND VASCULAR STRUCTURES: Cardiac silhouette size normal BONES: No acute findings. HARDWARE: None in the chest. OTHER: No other significant finding. IMPRESSION: Trace right pleural effusion and minimal right basilar airspace disease improved compare d to previous studies. Persistent left lower lobe collapse and consolidation with small left pleural effusion. This is cris lar compared to 05/18/2019 TECHNICAL DOCUMENTATION: JOB ID: [id number]- All Rights Reserved Reading location - IP/workstation name: [email or web address]
--- NOTE | 2019-05-21 14:08 | PDOC PROGRESS REPORT ---
Subjective Progress Note for:: 05/21/19 Reason For Visit: COPD EXACERBATON,ACUTE RESPIRATORY FAILURE WITH Physical Exam Vital Signs: Temp Pulse Resp BP Pulse Ox 97.6 F 63 20 109/63 89 L 05/21/19 12:04 05/21/19 12:04 05/21/19 08:11 05/21/19 12:04 05/21/19 12:04 Intake & Output 05/20/19 05/21/19 05/22/19 06:59 06:59 06:59 Intake Total 1820 1750 50 Output Total 1175 1150 Balance 645 600 50 Weight 96.4 kg 95.1 kg Results Laboratory Results: 05/20/19 06:00 05/21/19 05:19 05/20/19 05/21/19 15:45 05:19 Sodium 138.5 142.7 Potassium 5.9 H 5.8 H Chloride 106 110 H Carbon Dioxide 23 25 Anion Gap 10 8 BUN 69 H 74 H Creatinine 2.34 H 2.27 H Est GFR ( Amer) 34 L 35 L Glucose 146 H 87 Calcium 9.4 9.3 Phosphorus 6.1 H 05/18/19 14:00 Pleural Fluid - Right Pleural Effusion Gram Stain - Final 05/18/19 14:00 Pleural Fluid - Right Pleural Effusion AFB Smear Concentration - Final 05/18/19 14:00 Pleural Fluid - Right Pleural Effusion Acid Fast Bacilli Smear - Final 05/13/19 12:55 Troponin I 0.445 NT-Pro-B Natriuret Pep 16870 H Impressions: Head CT 05/13/19 13:37 IMPRESSION: NO ACUTE INTRACRANIAL IMAGING FINDINGS. EVIDENCE OF ACUTE STROKE: NO. Thoracentesis Ultrasound 05/18/19 00:00 IMPRESSION: Successful ultrasound-guided thoracentesis. Chest X-Ray 05/21/19 06:00 IMPRESSION: Trace right pleural effusion and minimal right basilar airspace disease improved compared to previous studies. Persistent left lower lobe collapse and consolidation with small left pleural effusion. This is similar compared to 05/18/2019 Assessment and Plan - Diagnosis (1) Acute on chronic respiratory failure with hypoxia and hypercapnia Is this a current diagnosis for this admission?: Yes Plan: -Secondary to COPD+pleural effusions+pneumonia. -Patient continues to require high flow nasal cannula. Tolerates nasal cannula at 6 L but SPO2 drops into the 70s on 6 L nasal cannula prompting us to resume HFNC. -2-view CXR this AM shows left lower lobe collapse with consolidation and significant left pleural effusion on my assessment of the x-ray --> I have discussed with IR and will send patient for left thoracentesis. -Maintain on high flow nasal cannula through the day with 50L flow rate to help with alveoli recruitment given compressive atelectasis from his pleural effusions. Patient still refuses BiPAP. -Aggressive chest physiotherapy and Nebs. -Hopefully we start to see some result with this left sided thoracentesis, physiotherapy and treatment of pneumonia. (2) COPD exacerbation Is this a current diagnosis for this admission?: Yes Plan: -Improving. -Since it is uncertain how long patient was on steroids outside the hospital, will wean steroids. Placed on prednisone 10 every 12h today. -Nebs (3) Transudative pleural effusion Is this a current diagnosis for this admission?: Yes Plan: Effusion present since last admission for CHF. Right thoracentesis done on this admission on 05/18/2019 yielded transudative fluid which could have been caused by initial CHF last admission. -Sending for left sided thoracentesis today -Follow-up cytology of initial thoracentesis. -Would we will gently reintroduce p.o. diuresis. (4) Acute kidney injury superimposed on chronic kidney disease Is this a current diagnosis for this admission?: Yes Plan: -Improved. Was seen by nephrology who suspects that it is likely secondary to recent VIDYA noted on last admission worsened by volume depletion and urinary retention [urinary retention has now resolved] -Currently close to baseline. (5) Mild pulmonary arterial systolic hypertension Is this a current diagnosis for this admission?: Yes Plan: -Known prior to admission. PA catheter last admission with MAP >25. PAPs in upper 30-40 mmHg. -TTE in February 2019 showed EF of 65%, normal systolic and diastolic function of LV, normal RV function and size. -Treatment is directed toward control of pulmonary issues for type III pulmonary hypertension (6) Diabetes mellitus type 2 in nonobese Is this a current diagnosis for this admission?: Yes Plan: -Continue Lantus 20 units every 12 hours [home regimen increased from 15 units every 12 hours] -Patient should not be taking metformin anymore given renal function. (7) Hyperkalemia Is this a current diagnosis for this admission?: Yes Plan: -Secondary to renal dysfunction. -Continues to stay elevated despite starting Veltassa 2-3 days ago. I have restarted lasix at soft dose of 20mg daily. -Reconsulted Nephro for help with this. (8) Healthcare associated bacterial pneumonia Is this a current diagnosis for this admission?: Yes Plan: -Continue with linezolid and meropenem [05/15/2019 - 05/22/2019]. -There was concern by Dr. Pope in the ICU for postobstructive pneumonia and possible endobronchial lesion and the patient may need bronchoscopy by Dr. Mejia at some point. - Time Time Spent with patient: 15-24 minutes
--- NOTE | 2019-05-21 16:53 | RADIOLOGY REPORT (SQ) ---
EXAM DESCRIPTION: CHEST SINGLE VIEW COMPLETED DATE/TIME: 05/21/2019 4:44 pm REASON FOR STUDY: STATUS POST THORA COMPARISON: 05/21/2019 at 1030 hours. EXAM PARAMETERS: NUMBER OF VIEWS: One view. TECHNIQUE: Single frontal radiographic view of the chest acquired. RADIATION DOSE: NA LIMITATIONS: None. FINDINGS: LUNGS AND PLEURA: The left pleural effusion has decreased. No pneumothorax. Right lung c lear. MEDIASTINUM AND HILAR STRUCTURES: No masses. Contour normal. HEART AND VASCULAR STRUCTURES: Heart normal in size. Normal vasculature. BONES: No acute findings. HARDWARE: None in the chest. OTHER: No other significant finding. IMPRESSION: NO PNEUMOTHORAX FOLLOWING THORACENTESIS. TECHNICAL DOCUMENTATION: JOB ID: [id number] [employer]- All Rights Reserved Reading location - IP/workstation name: [email or web address]
[2019-05-21] MEDS: MELATONIN 5 MG TABLET PO SCH (22:12)
[2019-05-21] MEDS: PREDNISONE 10 MG TABLET PO SCH (22:13)
[2019-05-22] MEDS: INSULIN REG, HUMAN 100 UNIT/ML 3 ML VIAL (PYX) SUBCUT SCH ×5 (00:22→23:13)
--- NOTE | 2019-05-22 01:53 | RADIOLOGY REPORT (SQ) ---
CLINICAL HISTORY: STATUS POST THORA - 2 HOUR COMPARISON: None. TECHNIQUE: XR CHEST 1 VIEW 05/21/2019 12:00 AM FLIGHT MECHANIC FINDINGS: The heart is mildly enlarged. There is left basilar and right mid and lower lung airspace disease. There are bilateral pleural effusions, larger on the left. There is no pneumothorax. There are no acute osseous findings. IMPRESSION: Bilateral pneumonia. No pneumothorax.
[2019-05-22] MEDS: FLUTICASONE NASAL SPRAY 50 MCG/SPRY 120 SPRAY/16 GM NASL SCH ×2 (05:48→17:30)
[2019-05-22] MEDS: INSULIN GLARGINE,HUM.REC.ANLOG 1,000 UNIT/10 ML VIAL SUBCUT SCH ×2 (05:49→19:23)
[2019-05-22 05:52] LABS: ANION GAP 5 (5-19); BLOOD UREA NITROGEN 71 mg/dL (7-20); CALCIUM 8.8 mg/dL (8.4-10.2); CARBON DIOXIDE 26 mmol/L (22-30); CHLORIDE 109 mmol/L (98-107); PHOSPHORUS 4.9 mg/dL (2.5-4.5); POTASSIUM 5.1 mmol/L (3.6-5.0)
[2019-05-22 05:56] LABS: GLUCOSE 61 mg/dL (75-110)
[2019-05-22] MEDS: ALBUTEROL SULFATE 0.083% NEB 2.5 MG/3 ML AMPUL NEB SCH ×2 (08:18→17:44)
--- NOTE | 2019-05-22 09:41 | PDOC PROGRESS REPORT ---
Subjective Progress Note for:: 05/22/19 Subjective:: Resting comfortably in bed. He has taken his oxygen off. He complains that it was making his nose dry. Reason For Visit: COPD EXACERBATON,ACUTE RESPIRATORY FAILURE WITH Physical Exam Vital Signs: Temp Pulse Resp BP Pulse Ox 98.5 F 68 14 108/67 97 05/22/19 08:36 05/22/19 08:36 05/22/19 08:36 05/22/19 08:36 05/22/19 08:36 Intake & Output 05/21/19 05/22/19 05/23/19 06:59 06:59 06:59 Intake Total 1750 1037 Output Total 1150 Balance 600 1037 Weight 95.1 kg 94.3 kg General appearance: PRESENT: no acute distress, cooperative, well-developed Head exam: PRESENT: atraumatic, normocephalic Mouth exam: PRESENT: moist, tongue midline Respiratory exam: PRESENT: rales - Bilateral, symmetrical, unlabored. ABSENT: rhonchi, tachypnea, wheezes Cardiovascular exam: PRESENT: RRR, +S1, +S2, systolic murmur - 3/6, other - As for GI/Abdominal exam: PRESENT: normal bowel sounds, soft. ABSENT: distended, guarding, tenderness Rectal exam: PRESENT: deferred Extremities exam: ABSENT: joint swelling, pedal edema Musculoskeletal exam: PRESENT: ambulatory, normal inspection Neurological exam: PRESENT: alert, awake, oriented to person, oriented to place, oriented to time, oriented to situation, CN II-XII grossly intact Psychiatric exam: PRESENT: appropriate affect. ABSENT: agitated, anxious Focused psych exam: ABSENT: delusional, restlessness Results Laboratory Results: 05/20/19 06:00 05/22/19 04:36 05/22/19 04:36 Sodium 140.1 Potassium 5.1 H Chloride 109 H Carbon Dioxide 26 Anion Gap 5 BUN 71 H Creatinine 2.12 H Est GFR ( Amer) 38 L Glucose 61 L Calcium 8.8 Phosphorus 4.9 H 05/18/19 14:00 Pleural Fluid - Right Pleural Effusion Gram Stain - Final 05/18/19 14:00 Pleural Fluid - Right Pleural Effusion Body Fluid Culture - Final NO AEROBIC OR ANAEROBIC ORGANISMS RECOVERED 05/13/19 12:55 Troponin I 0.445 NT-Pro-B Natriuret Pep [id number] H Impressions: Head CT 05/13/19 13:37 IMPRESSION: NO ACUTE INTRACRANIAL IMAGING FINDINGS. EVIDENCE OF ACUTE STROKE: NO. Chest X-Ray 05/21/19 06:00 IMPRESSION: Trace right pleural effusion and minimal right basilar airspace disease improved compared to previous studies. Persistent left lower lobe collapse and consolidation with small left pleural effusion. This is similar compared to 05/18/2019 Assessment and Plan - Diagnosis (1) Acute on chronic respiratory failure with hypoxia and hypercapnia Is this a current diagnosis for this admission?: Yes Plan: -Secondary to COPD+pleural effusions+pneumonia. -Patient continues to require high flow nasal cannula. Tolerates nasal cannula at 6 L but SPO2 drops into the 70s on 6 L nasal cannula prompting us to resume HFNC. -2-view CXR this AM shows left lower lobe collapse with consolidation and sign ificant left pleural effusion on my assessment of the x-ray --> I have discussed with IR and will send patient for left thoracentesis. -Maintain on high flow nasal cannula through the day with 50L flow rate to help with alveoli recruitment given compressive atelectasis from his pleural effusions. Patient still refuses BiPAP. -Aggressive chest physiotherapy and Nebs. -Hopefully we start to see some result with this left sided thoracentesis, physiotherapy and treatment of pneumonia. 05/22/2019-the patient feels more comfortable today. He is down to 2 L nasal cannula oxygen. We are going to ambulate the patient with and without oxygen. The goal is home without oxygen. (2) COPD exacerbation Is this a current diagnosis for this admission?: Yes Plan: -Improving. -Since it is uncertain how long patient was on steroids outside the hospital, will wean steroids. Placed on prednisone 10 every 12h today. -Nebs 05/22/2019-prednisone taper initiated as above. Continue current nebulizer regimen. I have added an inhaler to transition the patient to home. (3) Transudative pleural effusion Is this a current diagnosis for this admission?: Yes Plan: Effusion present since last admission for CHF. Right thoracentesis done on this admission on 05/18/2019 yielded transudative fluid which could have been caused by initial CHF last admission. -Sending for left sided thoracentesis today -Follow-up cytology of initial thoracentesis. -Would we will gently reintroduce p.o. diuresis. 05/22/2019-bilateral thoracenteses have been performed. The fluid buildup could be related to his chronic kidney disease since his echocardiogram in February showed a normal ejection fraction and no evidence of diastolic failure. (4) Acute kidney injury superimposed on chronic kidney disease Is this a current diagnosis for this admission?: Yes Plan: -Improved. Was seen by nephrology who suspects that it is likely secondary to recent VIDYA noted on last admission worsened by volume depletion and urinary retention [urinary retention has now resolved] -Currently close to baseline. 05/22/2019-the acute kidney injury is slightly improved today. We will continue to monitor. The patient is back on 20 mg of Lasix daily. We will continue to monitor renal function. As noted above this could still be residual from his most recent admission. (5) Mild pulmonary arterial systolic hypertension Is this a current diagnosis for this admission?: Yes Plan: -Known prior to admission. PA catheter last admission with MAP >25. PAPs in upper 30-40 mmHg. -TTE in February 2019 showed EF of 65%, normal systolic and diastolic function of LV, normal RV function and size. -Treatment is directed toward control of pulmonary issues for type III pulmonary hypertension 05/22/2019-continue current management. (6) Diabetes mellitus type 2 in nonobese Is this a current diagnosis for this admission?: Yes Plan: -Continue Lantus 20 units every 12 hours [home regimen increased from 15 units every 12 hours] -Patient should not be taking metformin anymore given renal function. 05/22/2019-on current regimen the patient exhibits excellent glucose control. As noted above metformin has been discontinued. Continue current insulin regimen. (7) Healthcare associated bacterial pneumonia Is this a current diagnosis for this admission?: Yes Plan: -Continue with linezolid and meropenem [05/15/2019 - 05/22/2019]. -There was concern by Dr. Pope in the ICU for postobstructive pneumonia and possible endobronchial lesion and the patient may need bronchoscopy by Dr. Mejia at some point. 05/22/2019-patient completed his antibiotic therapy today. We will continue to monitor. - Time Time Spent with patient: 15-24 minutes Medications reviewed and adjusted accordingly: Yes Anticipated discharge: Home
--- NOTE | 2019-05-22 09:59 | RADIOLOGY REPORT (SQ) ---
EXAM DESCRIPTION: U/S THORACENTESIS WITH IMAGING COMPLETED DATE/TIME: 05/21/2019 4:57 pm REASON FOR STUDY: left sided pleural effusion. hypoxia. COMPARISON: Chest x-ray 05/21/2019 RADIATION DOSE: None LIMITATIONS: None. PROCEDURE: Procedure, risks, benefit, and alternative explained to patient who then gave written con sent. The posterior left chest wall was marked using ultrasound guidance. A time-out was called for correct marking verification. Chest prepped and draped using sterile technique. Local anesthesia ac hieved using 8 ml of 1% lidocaine injection. A 6fr Safe-T- Centesis set was introduced into the left pleural space. Fluid was aspirated. The catheter was removed and the entry site was covered with s terile bandage. No immediate complications noted. Images acquired during the procedure were stored on PACS. FINDINGS: ENTRY SITE: posterior left chest. FLUID VOLUME: 1000 mL FLUID ANALYSIS: Clear straw-colored fluid OTHER: Therapeutic only IMPRESSION: SUCCESSFUL THORACENTESIS USING ULTRASOUNDultrasound radiologist GUIDANCE. COMMENT: Patient medication list reviewed: Yes- Quality ID# [id number]:Eligible professional attests to doc umenting in the medical record they obtained, updated, or reviewed the patient's current medications. TECHNICAL DOCUMENTATION: JOB ID: [id number] [email or web address]- All Rights Reserved Reading location - IP/workstation name: [email or web address]
[2019-05-22] MEDS: AMLODIPINE BESYLATE 10 MG TABLET PO SCH (10:17)
[2019-05-22] MEDS: METOPROLOL TARTRATE 50 MG TABLET PO SCH ×2 (10:24→21:33)
[2019-05-22] MEDS: MEROPENEM 1 GM in NORMAL SALINE 50 ML IV SCH (10:24)
[2019-05-22] MEDS: PREDNISONE 10 MG TABLET PO SCH ×2 (10:24→21:33)
[2019-05-22] MEDS: FERROUS SULFATE 325 MG TABLET PO SCH (10:25)
[2019-05-22] MEDS: FLUTICASONE/VILANTEROL 100-25 MCG/DOSE IH SCH (10:25)
[2019-05-22] MEDS: LINEZOLID 600 MG TABLET PO SCH (10:25)
[2019-05-22] MEDS: ISOSORBIDE MONONITRATE 60 MG TAB.ER.24H PO SCH (10:25)
[2019-05-22] MEDS: FUROSEMIDE 20 MG TABLET PO SCH (10:25)
[2019-05-22] MEDS: SODIUM CHLORIDE NASAL SPRAY 44 ML NASL SCH ×3 (10:26→21:32)
[2019-05-22] MEDS: PATIROMER 8.4 GM SUSP PACKET PO SCH (13:34)
[2019-05-22] MEDS: MELATONIN 5 MG TABLET PO SCH (21:33)
[2019-05-23] MEDS: INSULIN GLARGINE,HUM.REC.ANLOG 1,000 UNIT/10 ML VIAL SUBCUT SCH ×2 (05:37→17:22)
[2019-05-23] MEDS: INSULIN REG, HUMAN 100 UNIT/ML 3 ML VIAL (PYX) SUBCUT SCH ×3 (05:37→17:22)
[2019-05-23] MEDS: FLUTICASONE NASAL SPRAY 50 MCG/SPRY 120 SPRAY/16 GM NASL SCH ×2 (05:38→17:23)
[2019-05-23 05:46] LABS: ANION GAP 9 (5-19); BLOOD UREA NITROGEN 69 mg/dL (7-20); CALCIUM 8.8 mg/dL (8.4-10.2); CARBON DIOXIDE 24 mmol/L (22-30); CHLORIDE 109 mmol/L (98-107); GLUCOSE 103 mg/dL (75-110); POTASSIUM 5.1 mmol/L (3.6-5.0)
[2019-05-23] MEDS: ALBUTEROL SULFATE 0.083% NEB 2.5 MG/3 ML AMPUL NEB SCH ×2 (08:24→17:45)
[2019-05-23] MEDS: FERROUS SULFATE 325 MG TABLET PO SCH (09:49)
[2019-05-23] MEDS: AMLODIPINE BESYLATE 10 MG TABLET PO SCH (09:49)
[2019-05-23] MEDS: FUROSEMIDE 20 MG TABLET PO SCH (09:49)
[2019-05-23] MEDS: SODIUM CHLORIDE NASAL SPRAY 44 ML NASL SCH ×4 (09:49→21:40)
[2019-05-23] MEDS: METOPROLOL TARTRATE 50 MG TABLET PO SCH ×2 (09:50→21:40)
[2019-05-23] MEDS: FLUTICASONE/VILANTEROL 100-25 MCG/DOSE IH SCH (09:50)
[2019-05-23] MEDS: ISOSORBIDE MONONITRATE 60 MG TAB.ER.24H PO SCH (09:50)
[2019-05-23] MEDS: PREDNISONE 10 MG TABLET PO SCH (09:50)
--- NOTE | 2019-05-23 11:06 | PDOC PROGRESS REPORT ---
Subjective Progress Note for:: 05/23/19 Reason For Visit: Patient seen this morning. Patient was struggling with his breathing when he exerts. He states he is feeling fine when he sits and rests or lays in bed. He says he is tired of laying in bed day and night. He says he walked for 5 minutes outside in the corridor yesterday and then became short of breath. No complaints of any chest pains or palpitations, no history of any coughing or fever or chills. Appetite is fair. Labs and medications were reviewed. Physical Exam Vital Signs: Temp Pulse Resp BP Pulse Ox 97.8 F 70 18 133/76 H 95 05/23/19 07:34 05/23/19 08:27 05/23/19 08:27 05/23/19 07:34 05/23/19 08:27 Intake & Output 05/22/19 05/23/19 05/24/19 06:59 06:59 06:59 Intake Total 1037 540 Balance 1037 540 Weight 94.3 kg 94.6 kg General appearance: PRESENT: no acute distress - when lying in bed. Respiratory exam: PRESENT: clear to auscultation zachariah, crackles - in the bases., decreased breath sounds, rhonchi - few and scatterred Cardiovascular exam: PRESENT: +S1, +S2 GI/Abdominal exam: PRESENT: normal bowel sounds, soft. ABSENT: renal bruit, tenderness Extremities exam: PRESENT: +2 edema Neurological exam: PRESENT: alert, awake, oriented to person, oriented to place Psychiatric exam: PRESENT: agitated, anxious Skin exam: PRESENT: mottled - of legs. ABSENT: cyanosis, intact, jaundice Results Laboratory Results: 05/20/19 06:00 05/23/19 04:56 05/23/19 04:56 Sodium 141.8 Potassium 5.1 H Chloride 109 H Carbon Dioxide 24 Anion Gap 9 BUN 69 H Creatinine 2.03 H Est GFR ( Amer) 40 L Glucose 103 Calcium 8.8 05/18/19 14:00 Pleural Fluid - Right Pleural Effusion Fungal Smear - Final 05/18/19 14:00 Pleural Fluid - Right Pleural Effusion Fungal Smear - Final 05/18/19 14:00 Pleural Fluid - Right Pleural Effusion Gram Stain - Final 05/18/19 14:00 Pleural Fluid - Right Pleural Effusion Body Fluid Culture - Final NO AEROBIC OR ANAEROBIC ORGANISMS RECOVERED 05/13/19 12:55 Troponin I 0.445 NT-Pro-B Natriuret Pep 62573 H Impressions: Head CT 05/13/19 13:37 IMPRESSION: NO ACUTE INTRACRANIAL IMAGING FINDINGS. EVIDENCE OF ACUTE STROKE: NO. Thoracentesis Ultrasound 05/21/19 00:00 IMPRESSION: SUCCESSFUL THORACENTESIS USING ULTRASOUNDultrasound radiologist GUIDANCE. Chest X-Ray 05/21/19 06:00 IMPRESSION: Trace right pleural effusion and minimal right basilar airspace disease improved compared to previous studies. Persistent left lower lobe collapse and consolidation with small left pleural effusion. This is similar compared to 05/18/2019 Assessment & Plan - Diagnosis (1) Acute kidney injury superimposed on chronic kidney disease Is this a current diagnosis for this admission?: Yes Plan: Non oliguric.Slowly improving creatinine now at 2 . He has clinical features indicative of fluid overload. So change po to IV lasix. Monitor. (2) Healthcare associated bacterial pneumonia Is this a current diagnosis for this admission?: Yes Plan: last cxr done on reviewed. l consolidation and bilateral effusion. management as per hospitalist. (3) Hyperkalemia Is this a current diagnosis for this admission?: Yes Plan: No drug induced cause.Check for lysis. Do no T draws and later consider checking plasma and serum K . (4) Pleural effusion on right Is this a current diagnosis for this admission?: Yes Plan: As per hospitalist. (5) Diabetes mellitus type 2 in nonobese Is this a current diagnosis for this admission?: Yes Plan: Adv tight control. (6) Hypertension Qualifiers: Hypertension type: essential hypertension Qualified Code(s): I10 - Essential (primary) hypertension Is this a current diagnosis for this admission?: Yes Plan: Controlled.DC amlodipine.
[2019-05-23] MEDS: PATIROMER 8.4 GM SUSP PACKET PO SCH (13:35)
--- NOTE | 2019-05-23 17:04 | PDOC PROGRESS REPORT ---
Subjective Progress Note for:: 05/23/19 Subjective:: Patient is actually resting comfortably in bed without oxygen on. He reports that he did walk without oxygen earlier his oxygen saturation dropped to 84%. He still has some swelling in his legs. Reason For Visit: COPD EXACERBATON,ACUTE RESPIRATORY FAILURE WITH Physical Exam Vital Signs: Temp Pulse Resp BP Pulse Ox 97.9 F 68 20 114/64 84 L 05/23/19 16:00 05/23/19 16:00 05/23/19 16:00 05/23/19 16:00 05/23/19 16:00 Intake & Output 05/22/19 05/23/19 05/24/19 06:59 06:59 06:59 Intake Total 1037 540 480 Balance 1037 540 480 Weight 94.3 kg 94.6 kg General appearance: PRESENT: no acute distress, cooperative, well-developed Head exam: PRESENT: atraumatic, normocephalic Eye exam: PRESENT: conjunctiva pink. ABSENT: scleral icterus Ear exam: PRESENT: normal external ear exam. ABSENT: bleeding, drainage Mouth exam: PRESENT: moist, tongue midline Respiratory exam: PRESENT: rales - Faint rales at bases, rhonchi, symmetrical, unlabored. ABSENT: tachypnea, wheezes Cardiovascular exam: PRESENT: RRR, +S1, +S2, systolic murmur - 2/6 GI/Abdominal exam: PRESENT: normal bowel sounds, soft. ABSENT: distended, tenderness Rectal exam: PRESENT: deferred Extremities exam: PRESENT: pedal edema, +1 edema Musculoskeletal exam: PRESENT: ambulatory, normal inspection. ABSENT: deformity Neurological exam: PRESENT: alert, awake, oriented to person, oriented to place, oriented to time, oriented to situation, CN II-XII grossly intact Psychiatric exam: PRESENT: appropriate affect. ABSENT: agitated, anxious Focused psych exam: ABSENT: delusional, restlessness Results Laboratory Results: 05/20/19 06:00 05/23/19 04:56 05/23/19 04:56 Sodium 141.8 Potassium 5.1 H Chloride 109 H Carbon Dioxide 24 Anion Gap 9 BUN 69 H Creatinine 2.03 H Est GFR ( Amer) 40 L Glucose 103 Calcium 8.8 05/18/19 14:00 Pleural Fluid - Right Pleural Effusion Fungal Smear - Final 05/18/19 14:00 Pleural Fluid - Right Pleural Effusion Fungal Smear - Final 05/13/19 12:55 Troponin I 0.445 NT-Pro-B Natriuret Pep 60485 H Impressions: Head CT 05/13/19 13:37 IMPRESSION: NO ACUTE INTRACRANIAL IMAGING FINDINGS. EVIDENCE OF ACUTE STROKE: NO. Thoracentesis Ultrasound 05/21/19 00:00 IMPRESSION: SUCCESSFUL THORACENTESIS USING ULTRASOUNDultrasound radiologist GUIDANCE. Chest X-Ray 05/21/19 06:00 IMPRESSION: Trace right pleural effusion and minimal right basilar airspace disease improved compared to previous studies. Persistent left lower lobe collapse and consolidation with small left pleural effusion. This is similar compared to 05/18/2019 Assessment and Plan - Diagnosis (1) Acute on chronic respiratory failure with hypoxia and hypercapnia Is this a current diagnosis for this admission?: Yes Plan: -Secondary to COPD+pleural effusions+pneumonia. -Patient continues to require high flow nasal cannula. Tolerates nasal cannula at 6 L but SPO2 drops into the 70s on 6 L nasal cannula prompting us to resume HFNC. -2-view CXR this AM shows left lower lobe collapse with consolidation and significant left pleural effusion on my assessment of the x-ray --> I have discussed with IR and will send patient for left thoracentesis. -Maintain on high flow nasal cannula through the day with 50L flow rate to help with alveoli recruitment given compressive atelectasis from his pleural effusions. Patient still refuses BiPAP. -Aggressive chest physiotherapy and Nebs. -Hopefully we start to see some result with this left sided thoracentesis, physiotherapy and treatment of pneumonia. 05/22/2019-the patient feels more comfortable today. He is down to 2 L nasal cannula oxygen. We are going to ambulate the patient with and without oxygen. The goal is home without oxygen. 05/23/2019-the patient continues to improve. He states that he ambulated earlier on room air and his pulse ox dropped to 84%. I had told him that this is a bit too low and he should continue his oxygen at this time. (2) COPD exacerbation Is this a current diagnosis for this admission?: Yes Plan: -Improving. -Since it is uncertain how long patient was on steroids outside the hospital, will wean steroids. Placed on prednisone 10 every 12h today. -Nebs 05/22/2019-prednisone taper initiated as above. Continue current nebulizer regimen. I have added an inhaler to transition the patient to home. 05/23/2019-the patient clearly is doing better. I did start him on Trelegy combination inhaler daily. (3) Transudative pleural effusion Is this a current diagnosis for this admission?: Yes Plan: Effusion present since last admission for CHF. Right thoracentesis done on this admission on 05/18/2019 yielded transudative fluid which could have been caused by initial CHF last admission. -Sending for left sided thoracentesis today -Follow-up cytology of initial thoracentesis. -Would we will gently reintroduce p.o. diuresis. 05/22/2019-bilateral thoracenteses have been performed. The fluid buildup could be related to his chronic kidney disease since his echocardiogram in February showed a normal ejection fraction and no evidence of diastolic failure. 05/23/2019-laboratory studies on the fluid confirms transudate. Dr. Espinal suggested changing the furosemide to IV as the patient still appears to have volume overload. We will continue to monitor intake and output. Now that the IV antibiotics and IV fluids have been discontinued we should be able to achieve a negative fluid balance especially with changing the furosemide to intravenous. (4) Acute kidney injury superimposed on chronic kidney disease Is this a current diagnosis for this admission?: Yes Plan: -Improved. Was seen by nephrology who suspects that it is likely secondary to recent VIDYA noted on last admission worsened by volume depletion and urinary retention [urinary retention has now resolved] -Currently close to baseline. 05/22/2019-the acute kidney injury is slightly improved today. We will continue to monitor. The patient is back on 20 mg of Lasix daily. We will continue to monitor renal function. As noted above this could still be residual from his most recent admission. 05/23/2019-there continues to be slow improvement. Appreciate Dr. Espinal's input. Hopefully the Lasix 20 mg IV twice daily will generate a negative fluid balance. (5) Mild pulmonary arterial systolic hypertension Is this a current diagnosis for this admission?: Yes Plan: -Known prior to admission. PA catheter last admission with MAP >25. PAPs in upper 30-40 mmHg. -TTE in February 2019 showed EF of 65%, normal systolic and diastolic function of LV, normal RV function and size. -Treatment is directed toward control of pulmonary issues for type III pulmonary hypertension 05/22/2019-continue current management. 05/23/2019-no changes at this time (6) Diabetes mellitus type 2 in nonobese Is this a current diagnosis for this admission?: Yes Plan: -Continue Lantus 20 units every 12 hours [home regimen increased from 15 units every 12 hours] -Patient should not be taking metformin anymore given renal function. 05/22/2019-on current regimen the patient exhibits excellent glucose control. As noted above metformin has been discontinued. Continue current insulin regimen. 05/23/2019-his glucose readings today have been on the low side. Perhaps with the decreased prednisone dose we may need to decrease his Lantus slightly. I will decrease to 18 units twice daily. (7) Healthcare associated bacterial pneumonia Is this a current diagnosis for this admission?: Yes Plan: -Continue with linezolid and meropenem [05/15/2019 - 05/22/2019]. -There was concern by Dr. Pope in the ICU for postobstructive pneumonia and possible endobronchial lesion and the patient may need bronchoscopy by Dr. Mejia at some point. 05/22/2019-patient completed his antibiotic therapy today. We will continue to monitor. 05/23/2019-antibiotic therapy is completed. Chest x-ray is still abnormal but he still has volume overload and infiltrates can take several weeks to clear on x-ray. (8) Hyperkalemia Is this a current diagnosis for this admission?: Yes Plan: -Secondary to renal dysfunction. -Continues to stay elevated despite starting Veltassa 2-3 days ago. I have restarted lasix at soft dose of 20mg daily. -Reconsulted Nephro for help with this. 05/22/2019-the patient's serum potassium is down to 5.1. We will continue to monitor on current regimen. 05/23/2019-continue Veltassa and monitor serum potassium. - Time Time Spent with patient: 15-24 minutes Medications reviewed and adjusted accordingly: Yes Anticipated discharge: Home
[2019-05-23] MEDS: MELATONIN 5 MG TABLET PO SCH (21:40)
[2019-05-23] MEDS: FUROSEMIDE INJ/PF 20 MG/2 ML SDV IV SCH (21:40)
[2019-05-23] MEDS: PREDNISONE 5 MG TABLET PO SCH (21:40)
[2019-05-24] MEDS: INSULIN REG, HUMAN 100 UNIT/ML 3 ML VIAL (PYX) SUBCUT SCH ×4 (00:59→18:01)
[2019-05-24] MEDS: FLUTICASONE NASAL SPRAY 50 MCG/SPRY 120 SPRAY/16 GM NASL SCH ×2 (05:23→17:08)
[2019-05-24] MEDS: INSULIN GLARGINE,HUM.REC.ANLOG 1,000 UNIT/10 ML VIAL SUBCUT SCH ×2 (05:24→18:05)
[2019-05-24 08:08] LABS: ANION GAP 7 (5-19); BLOOD UREA NITROGEN 67 mg/dL (7-20); CALCIUM 8.8 mg/dL (8.4-10.2); CARBON DIOXIDE 27 mmol/L (22-30); CHLORIDE 106 mmol/L (98-107); GLUCOSE 165 mg/dL (75-110); POTASSIUM 4.3 mmol/L (3.6-5.0)
[2019-05-24] MEDS: ALBUTEROL SULFATE 0.083% NEB 2.5 MG/3 ML AMPUL NEB SCH (08:33)
[2019-05-24 09:03] LABS: HEMATOCRIT 40.1 % (37.9-51.0); HEMOGLOBIN 13.2 g/dL (13.5-17.0); MEAN CORPUSCULAR HEMOGLOBIN 31.5 pg (27.0-33.4); MEAN CORPUSCULAR VOLUME 96 fl (80-97); WHITE BLOOD COUNT 7.8 10^3/uL (4.0-10.5)
[2019-05-24 09:44] LABS: PLATELET COUNT 55 10^3/uL (150-450)
[2019-05-24] MEDS: ISOSORBIDE MONONITRATE 60 MG TAB.ER.24H PO SCH (10:15)
[2019-05-24] MEDS: PREDNISONE 5 MG TABLET PO SCH ×2 (10:15→21:28)
[2019-05-24] MEDS: FUROSEMIDE INJ/PF 20 MG/2 ML SDV IV SCH ×2 (10:16→21:28)
[2019-05-24] MEDS: FERROUS SULFATE 325 MG TABLET PO SCH (10:16)
[2019-05-24] MEDS: SODIUM CHLORIDE NASAL SPRAY 44 ML NASL SCH ×4 (10:16→21:29)
[2019-05-24] MEDS: FLUTICASONE/VILANTEROL 100-25 MCG/DOSE IH SCH (10:16)
[2019-05-24] MEDS: METOPROLOL TARTRATE 50 MG TABLET PO SCH ×2 (10:16→21:29)
[2019-05-24] MEDS: FLUTICASONE/UMECLIDIN/VILANTER 100-62.5-25 MCG/DOSE IH SCH (10:17)
[2019-05-24] MEDS: PATIROMER 8.4 GM SUSP PACKET PO SCH (10:20)
--- NOTE | 2019-05-24 11:37 | PDOC PROGRESS REPORT ---
Subjective Progress Note for:: 05/24/19 Reason For Visit: Patient seen today. She is lately more comfortable than when I saw him yesterday. He is more cheerful. Still he has not had much of exertion. He denies any history of chest pains. Appetite is good with no history of nausea vomiting. Labs and medications were reviewed that shows improving creatinine. He has a good urine output. Physical Exam Vital Signs: Temp Pulse Resp BP Pulse Ox 97.8 F 65 16 166/59 H 94 05/24/19 08:00 05/24/19 08:35 05/24/19 08:35 05/24/19 08:00 05/24/19 08:35 Intake & Output 05/23/19 05/24/19 05/25/19 06:59 06:59 06:59 Intake Total 540 720 Balance 540 720 Weight 94.6 kg 93 kg General appearance: PRESENT: no acute distress Respiratory exam: PRESENT: clear to auscultation zachariah, decreased breath sounds. ABSENT: crackles Cardiovascular exam: PRESENT: +S1, +S2 GI/Abdominal exam: PRESENT: normal bowel sounds, soft. ABSENT: renal bruit, tenderness Extremities exam: PRESENT: pedal edema Neurological exam: PRESENT: alert, awake, oriented to person, oriented to place Psychiatric exam: PRESENT: anxious Results Laboratory Results: 05/24/19 08:54 05/24/19 06:49 05/24/19 05/24/19 05/24/19 06:49 06:49 08:54 WBC Cancelled 7.8 RBC Cancelled 4.20 L Hgb Cancelled 13.2 L Hct Cancelled 40.1 MCV Cancelled 96 MCH Cancelled 31.5 MCHC Cancelled 33.0 RDW Cancelled 17.0 H Plt Count Cancelled 55 L Sodium 139.9 Potassium 4.3 Chloride 106 Carbon Dioxide 27 Anion Gap 7 BUN 67 H Creatinine 1.85 H Est GFR ( Amer) 44 L Glucose 165 H Calcium 8.8 05/13/19 12:55 Troponin I 0.445 NT-Pro-B Natriuret Pep 18003 H Impressions: Head CT 05/13/19 13:37 IMPRESSION: NO ACUTE INTRACRANIAL IMAGING FINDINGS. EVIDENCE OF ACUTE STROKE: NO. Thoracentesis Ultrasound 05/21/19 00:00 IMPRESSION: SUCCESSFUL THORACENTESIS USING ULTRASOUNDultrasound radiologist GUIDANCE. Chest X-Ray 05/21/19 06:00 IMPRESSION: Trace right pleural effusion and minimal right basilar airspace disease improved compared to previous studies. Persistent left lower lobe collapse and consolidation with small left pleural effusion. This is similar compared to 05/18/2019 Assessment & Plan - Diagnosis (1) Acute kidney injury superimposed on chronic kidney disease Is this a current diagnosis for this admission?: Yes Plan: Non oliguric.Slowly improving creatinine now at 1.8/2.0 . Same rxs . Monitor. (2) Healthcare associated bacterial pneumonia Is this a current diagnosis for this admission?: Yes Plan: last cxr done on reviewed. l consolidation and bilateral effusion. management as per hospitalist. (3) Hyperkalemia Is this a current diagnosis for this admission?: Yes Plan: currently normokalemic. Will dc Veltassa and monitor. (4) Pleural effusion on right Is this a current diagnosis for this admission?: Yes Plan: As per hospitalist. (5) Diabetes mellitus type 2 in nonobese Is this a current diagnosis for this admission?: Yes Plan: Adv tight control. (6) Hypertension Qualifiers: Hypertension type: essential hypertension Qualified Code(s): I10 - Essential (primary) hypertension Is this a current diagnosis for this admission?: Yes Plan: Controlled.DC amlodipine.
--- NOTE | 2019-05-24 15:04 | PDOC PROGRESS REPORT ---
Subjective Progress Note for:: 05/24/19 Subjective:: Patient's states that he is breathing well today. Is frustrated that he has not gone home yet. He is also reluctant to using incentive spirometer as advised frequently at least once an hour. Reason For Visit: COPD EXACERBATON,ACUTE RESPIRATORY FAILURE WITH Physical Exam Vital Signs: Temp Pulse Resp BP Pulse Ox 97.5 F 74 20 113/61 97 05/24/19 12:00 05/24/19 12:00 05/24/19 12:00 05/24/19 12:00 05/24/19 12:00 Intake & Output 05/23/19 05/24/19 05/25/19 06:59 06:59 06:59 Intake Total 540 720 480 Balance 540 720 480 Weight 94.6 kg 93 kg General appearance: PRESENT: no acute distress Neck exam: ABSENT: JVD Respiratory exam: PRESENT: clear to auscultation zachariah, symmetrical, unlabored. ABSENT: tachypnea, wheezes Cardiovascular exam: PRESENT: RRR, +S1, +S2. ABSENT: tachycardia GI/Abdominal exam: PRESENT: normal bowel sounds, soft. ABSENT: distended, guarding, tenderness Extremities exam: PRESENT: +2 edema Neurological exam: PRESENT: alert, awake, oriented to person, oriented to place, oriented to time, oriented to situation Results Laboratory Results: 05/24/19 08:54 05/24/19 06:49 05/24/19 05/24/19 05/24/19 06:49 06:49 08:54 WBC Cancelled 7.8 RBC Cancelled 4.20 L Hgb Cancelled 13.2 L Hct Cancelled 40.1 MCV Cancelled 96 MCH Cancelled 31.5 MCHC Cancelled 33.0 RDW Cancelled 17.0 H Plt Count Cancelled 55 L Sodium 139.9 Potassium 4.3 Chloride 106 Carbon Dioxide 27 Anion Gap 7 BUN 67 H Creatinine 1.85 H Est GFR ( Amer) 44 L Glucose 165 H Calcium 8.8 05/13/19 12:55 Troponin I 0.445 NT-Pro-B Natriuret Pep 35237 H Impressions: Head CT 05/13/19 13:37 IMPRESSION: NO ACUTE INTRACRANIAL IMAGING FINDINGS. EVIDENCE OF ACUTE STROKE: NO. Thoracentesis Ultrasound 05/21/19 00:00 IMPRESSION: SUCCESSFUL THORACENTESIS USING ULTRASOUNDultrasound radiologist GUIDANCE. Chest X-Ray 05/21/19 06:00 IMPRESSION: Trace right pleural effusion and minimal right basilar airspace di sease improved compared to previous studies. Persistent left lower lobe collapse and consolidation with small left pleural effusion. This is similar compared to 05/18/2019 Assessment and Plan - Diagnosis (1) Acute on chronic respiratory failure with hypoxia and hypercapnia Is this a current diagnosis for this admission?: Yes Plan: -Secondary to COPD+pleural effusions+pneumonia. -Patient continues to require high flow nasal cannula. Tolerates nasal cannula at 6 L but SPO2 drops into the 70s on 6 L nasal cannula prompting us to resume HFNC. -2-view CXR this AM shows left lower lobe collapse with consolidation and significant left pleural effusion on my assessment of the x-ray --> I have discussed with IR and will send patient for left thoracentesis. -Maintain on high flow nasal cannula through the day with 50L flow rate to help with alveoli recruitment given compressive atelectasis from his pleural effusions. Patient still refuses BiPAP. -Aggressive chest physiotherapy and Nebs. -Hopefully we start to see some result with this left sided thoracentesis, physiotherapy and treatment of pneumonia. 05/22/2019-the patient feels more comfortable today. He is down to 2 L nasal cannula oxygen. We are going to ambulate the patient with and without oxygen. The goal is home without oxygen. 05/23/2019-the patient continues to improve. He states that he ambulated earlie r on room air and his pulse ox dropped to 84%. I had told him that this is a bit too low and he should continue his oxygen at this time. 05/24/2019-hypoxia continues to show significant improvement since bilateral thoracentesis. Patient was on 6 L nasal cannula this morning. This afternoon I personally placed patient on 2 L nasal cannula and his SPO2 sustained around 90 to 92%. Continue chest physiotherapy. Continue incentive spirometer. Continue Lasix which may help improve remnant effusions. Will evaluate to see if patient needs home oxygen tomorrow morning and work towards discharge. (2) COPD exacerbation Is this a current diagnosis for this admission?: Yes Plan: -Improving. -Since it is uncertain how long patient was on steroids outside the hospital, will wean steroids. Placed on prednisone 10 every 12h today. -Nebs 05/22/2019-prednisone taper initiated as above. Continue current nebulizer regimen. I have added an inhaler to transition the patient to home. 05/23/2019-the patient clearly is doing better. I did start him on Trelegy combination inhaler daily. [id number] to prednisone 2.5 mg every 12 hours. (3) Transudative pleural effusion Is this a current diagnosis for this admission?: Yes Plan: Effusion present since last admission for CHF. Right thoracentesis done on this admission on 05/18/2019 yielded transudative fluid which could have been caused by initial CHF last admission. -Sending for left sided thoracentesis today -Follow-up cytology of initial thoracentesis. -Would we will gently reintroduce p.o. diuresis. 05/22/2019-bilateral thoracenteses have been performed. The fluid buildup could be related to his chronic kidney disease since his echocardiogram in February showed a normal ejection fraction and no evidence of diastolic failure. 05/23/2019-laboratory studies on the fluid confirms transudate. Dr. Espinal suggested changing the furosemide to IV as the patient still appears to have volume overload. We will continue to monitor intake and output. Now that the IV antibiotics and IV fluids have been discontinued we should be able to achieve a negative fluid balance especially with changing the furosemide to intravenous. 05/24/2019-continue with Lasix (4) Acute kidney injury superimposed on chronic kidney disease Is this a current diagnosis for this admission?: Yes Plan: -Improved. Was seen by nephrology who suspects that it is likely secondary to recent VIDYA noted on last admission worsened by volume depletion and urinary retention [urinary retention has now resolved] -Currently close to baseline. 05/22/2019-the acute kidney injury is slightly improved today. We will continue to monitor. The patient is back on 20 mg of Lasix daily. We will continue to monitor renal function. As noted above this could still be residual from his most recent admission. 05/23/2019-there continues to be slow improvement. Appreciate Dr. Espinal's input. Hopefully the Lasix 20 mg IV twice daily will generate a negative fluid balance. 05/24/2019-stable (5) Mild pulmonary arterial systolic hypertension Is this a current diagnosis for this admission?: Yes (6) Diabetes mellitus type 2 in nonobese Is this a current diagnosis for this admission?: Yes (7) Hyperkalemia Is this a current diagnosis for this admission?: Yes Plan: -Secondary to renal dysfunction. -Continues to stay elevated despite starting Veltassa 2-3 days ago. I have restarted lasix at soft dose of 20mg daily. -Reconsulted Nephro for help with this. 05/22/2019-the patient's serum potassium is down to 5.1. We will continue to monitor on current regimen. 05/23/2019-continue Veltassa and monitor serum potassium. 05/24/2019-continue with diltiazem and Lasix. Continue to monitor potassium. (8) Healthcare associated bacterial pneumonia Is this a current diagnosis for this admission?: Yes Plan: -Continue with linezolid and meropenem [05/15/2019 - 05/22/2019]. -There was concern by Dr. Pope in the ICU for postobstructive pneumonia and possible endobronchial lesion and the patient may need bronchoscopy by Dr. Alexa mcneal at some point. 05/22/2019-patient completed his antibiotic therapy today. We will continue to monitor. 05/23/2019-antibiotic therapy is completed. Chest x-ray is still abnormal but he still has volume overload and infiltrates can take several weeks to clear on x-ray. - Time Time Spent with patient: 15-24 minutes
[2019-05-24] MEDS ORDERED: ALBUTEROL SULFATE 0.083% NEB 2.5 MG/3 ML AMPUL NEB PRN (15:05)
[2019-05-24 18:43] LABS: APPEARANCE,URINE CLEAR; BILIRUBIN,URINE NEGATIVE (NEGATIVE); COLOR,URINE YELLOW; GLUCOSE, URINE >=500 mg/dL (NEGATIVE); KETONES,URINE NEGATIVE (NEGATIVE); LEUKOCYTE ESTERASE,URINE NEGATIVE (NEGATIVE); NITRITE,URINE NEGATIVE (NEGATIVE); PROTEIN,URINE 100 mg/dL (NEGATIVE); UROBILINOGEN,URINE NEGATIVE mg/dL (<2.0)
[2019-05-24] MEDS: MELATONIN 5 MG TABLET PO SCH (21:29)
[2019-05-25] MEDS: INSULIN REG, HUMAN 100 UNIT/ML 3 ML VIAL (PYX) SUBCUT SCH ×3 (01:47→12:33)
[2019-05-25] MEDS: FLUTICASONE NASAL SPRAY 50 MCG/SPRY 120 SPRAY/16 GM NASL SCH (05:47)
[2019-05-25] MEDS: INSULIN GLARGINE,HUM.REC.ANLOG 1,000 UNIT/10 ML VIAL SUBCUT SCH (05:52)
[2019-05-25] MEDS ORDERED: FUROSEMIDE INJ/PF 20 MG/2 ML SDV IV SCH (06:00)
[2019-05-25 06:22] LABS: BLOOD UREA NITROGEN 67 mg/dL (7-20); CALCIUM 8.6 mg/dL (8.4-10.2); GLUCOSE 78 mg/dL (75-110); POTASSIUM 4.3 mmol/L (3.6-5.0)
[2019-05-25 06:28] LABS: ANION GAP 5 (5-19); CARBON DIOXIDE 30 mmol/L (22-30); CHLORIDE 103 mmol/L (98-107)
[2019-05-25] MEDS: SODIUM CHLORIDE NASAL SPRAY 44 ML NASL SCH ×3 (07:30→16:04)
[2019-05-25] MEDS: METOPROLOL TARTRATE 50 MG TABLET PO SCH (09:34)
[2019-05-25] MEDS: FERROUS SULFATE 325 MG TABLET PO SCH (09:34)
[2019-05-25] MEDS: FLUTICASONE/VILANTEROL 100-25 MCG/DOSE IH SCH (09:34)
[2019-05-25] MEDS: FLUTICASONE/UMECLIDIN/VILANTER 100-62.5-25 MCG/DOSE IH SCH (09:34)
[2019-05-25] MEDS: ISOSORBIDE MONONITRATE 60 MG TAB.ER.24H PO SCH (09:36)
[2019-05-25] MEDS: PREDNISONE 5 MG TABLET PO SCH (09:36)
[2019-05-25 11:40] VITALS: BP 103/64
--- NOTE | 2019-05-25 14:42 | PDOC DISCHARGE SUMMARY ---
Impression - Admit/DC Date/PCP Admission Date/Primary Care Provider: 05/13/19 16:33 REYNA PENN MD Discharge Date: 05/25/19 - Discharge Diagnosis (1) Acute on chronic respiratory failure with hypoxia and hypercapnia Is this a current diagnosis for this admission?: Yes (2) COPD exacerbation Is this a current diagnosis for this admission?: Yes (3) Transudative pleural effusion Is this a current diagnosis for this admission?: Yes (4) Acute kidney injury superimposed on chronic kidney disease Is this a current diagnosis for this admission?: Yes (5) Mild pulmonary arterial systolic hypertension Is this a current diagnosis for this admission?: Yes (6) Diabetes mellitus type 2 in nonobese Is this a current diagnosis for this admission?: Yes (7) Hyperkalemia Is this a current diagnosis for this admission?: Yes (8) Healthcare associated bacterial pneumonia Is this a current diagnosis for this admission?: Yes - Assessment Summary: Patient initially presented with shortness of breath and hypoxia which was noted on pulse oximetry by EMS. In the emergency room, patient was noted to have hypoxia and hypercapnia on blood gas. Chest x-ray at that time showed bilateral pleural effusions. Patient was admitted to the intensive care unit for management of his acute on chronic hypoxic and hypercapnic respiratory failure secondary to a combination of acute COPD exacerbation, bilateral pleural effusions and a suspected pneumonia. Patient was initially placed on BiPAP however patient started to refuse BiPAP therapy. He was subsequently placed on high flow nasal cannula with the hope that he would assist with some positive pressure as well to address patient's hypoxia and hypercapnia. At the time patient was also noted to be having acute on chronic kidney injury and was volume depleted. His diuretics were held and he was given some gentle fluid hydration. His creatinine gradually improved with the help of nephrology for management. In terms of patient's respiratory status, patient underwent an ultrasound-guided thoracentesis of his right long while in the ICU. This yielded 1 L of transudative fluid which was negative for malignancy upon cytology. Patient was also started on treatment for healthcare associated pneumonia and completed 7 days course of linezolid and meropenem. There was suspicion restain ICU of possible postobstructive pneumonia feature with possible endobronchial lesion. Patient is to follow-up with Dr. Mejia as outpatient for repeat imaging and evaluation of any potential endobronchial lesion. Of note after patient was transferred out of the ICU, patient continued to remain hypoxic requiring high flow nasal cannula is a very high FiO2 rate. Patient was started on aggressive chest physiotherapy to help and lung recruitment from collapsed atelectasis. There was mild improvement with this to patient's oxygenation. The most significant improvement occurred after patient was sent for a left-sided thoracentesis which also yielded about 1 L of fluid. Patient's oxygen requirement significantly improved after this. Patient's Lasix dose was resumed to help with his overall fluid overloaded state from CKD. Of note the etiology of his pleural effusions was deemed to be secondary to his chronic kidney disease rather than congestive heart failure as his recent echocardiogram showed normal systolic and diastolic function of the heart. Patient has also been started on Veltassa given persistent hyperkalemia and has been scheduled to follow-up with Dr. Espinal for further management of his CKD. The patient oxygen levels have improved significantly since his admission, we are unable to wean patient off oxygen at this time and as such patient is being discharged home on 3 to 4 L nasal cannula. Of note patient was also treated for COPD exacerbation during his stay with nebs and a slow taper of steroids. Nika pena's diabetes regimen has also been adjusted to Lantus 18 units every 12 hours while discontinuing his metformin given his renal function. Patient is being discharged in stable conditions with the appropriate follow-ups. - Additional Information Discharge Diet: Other (Comments) Discharge Activity: Activity As Tolerated Referrals: LUISITO MEJIA MD [ACTIVE STAFF] - (Please make an appointment for follow-up within 1 to 2 weeks.) REYNA PENN MD [Primary Care Provider] - Follow up as needed Dorothy ESPINAL MD [ACTIVE STAFF] - (Please make an appointment for follow- up within 1 to 2 weeks.) Prescriptions: Prednisone [Deltasone 5 mg Tablet] 2.5 mg PO Q12 3 Days tablet Insulin Glargine,Hum.rec.anlog [Lantus Insulin 100 Unit/1 ml 10 ml] 18 unit SUBCUT Q12 #10 ml Furosemide [Lasix 40 mg Tablet] 40 mg PO DAILY #14 Fluticasone/Umeclidin/Vilanter [Trelegy 100-62.5-25 Mcg Ellipta 14 Dose/Dpi] 1 inh IH DAILY #2 inhaler Patiromer Calcium Sorbitex [Veltassa] 8.4 gm PO DAILY #10 powd.pack Home Medications: Apixaban [Eliquis 5 mg Tablet] 5 mg PO Q12 05/14/19 Atorvastatin Calcium [Lipitor 40 mg Tablet] 40 mg PO QHS 05/14/19 Ferrous Sulfate [Feosol 325 mg Tablet] 325 mg PO DAILY 05/14/19 Gabapentin [Neurontin 300 mg Capsule] 300 mg PO Q12 05/14/19 Isosorbide Mononitrate [Imdur 60 mg Tablet.er] 60 mg PO DAILY 05/14/19 Metoprolol Tartrate [Lopressor 50 mg Tablet] 50 mg PO Q12 05/14/19 Nitroglycerin [Nitrostat 0.4 mg (1/150 Gr) Tabs 25/Bottle] 0.4 mg SL Q5MP PRN 05/14/19 Fluticasone/Umeclidin/Vilanter [Trelegy 100-62.5-25 Mcg Ellipta 14 Dose/Dpi] 1 inh IH DAILY #2 inhaler 05/25/19 Furosemide [Lasix 40 mg Tablet] 40 mg PO DAILY #14 05/25/19 Insulin Glargine,Hum.rec.anlog [Lantus Insulin 100 Unit/1 ml 10 ml] 18 unit SUBCUT Q12 #10 ml 05/25/19 Patiromer Calcium Sorbitex [Veltassa] 8.4 gm PO DAILY #10 powd.pack 05/25/19 Prednisone [Deltasone 5 mg Tablet] 2.5 mg PO Q12 3 Days tablet 05/25/19 History of Present Illiness History of Present Illness: JOSE GARCIA is a 68 year old male with severe COPD. Still smoking. Left AMA 10 days ago who returns with SOB X 1 day. Not feeling well for several, in bed with poor PO intake last 2 days. EMS called to home where his O2 saturations were 67%. He has been this low before. He also is hypercarbic by ABG with a pH 7.19. He is sleepy but awake on bipap but certainly not out of danger of intubation yet. He is also found to be in renal failure. At discharge last he was having high BUN/Cr. It is higher now. No vancomycin and Metformin will be stopped. Apparently he got markedly depressed with nicotine patch before. With recent AMA discharge, his said he went home and immediately smoked. Given the severity of COPD we will retry nicotine patch. Physical Exam Vital Signs: Temp Pulse Resp BP Pulse Ox 97.8 F 72 20 103/64 95 05/25/19 11:26 05/25/19 11:26 05/25/19 11:26 05/25/19 11:26 05/25/19 11:26 Pulse Oximeter Ambulatory Start: 05/25/19 07:30 Freq: IN AM Status: Active Protocol: Document 05/25/19 10:02 [facility] [place]Rec[place] 05/25/19 10:59 [facility] [id number] Exercise Oximetry Treatment Ambulating SpO2 Charge Now Yes Oxygen Delivery Method Room Air FIO2 (% Oxygen) 21 Exercise O2 Saturation by Pulse Oximetry 81 Pulse Rate 83 Respiratory Rate 24 Resting O2 Saturation by Pulse Oximetry 87 Pulse Rate 70 Respiratory Rate 16 Oximetry Exercise Interval (min) 5 Ambulation Distance (ft) 100 Exercise Tolerance Good Additional RT Notes Other pt recovered on 4lpm oxymizer spo2 96 HR 70. Ambulation attempted again. Pt walked about 300 feet on 4lpm oxymizer lowest spo2 93 HR 76 . Pt recoverd, resting spo2 95 HR 72 on 4lpm oxymizer Intake & Output 05/24/19 05/25/19 05/26/19 06:59 06:59 06:59 Intake Total 720 720 240 Balance 720 720 240 Weight 93 kg 93.6 kg General appearance: PRESENT: no acute distress, cooperative Neck exam: ABSENT: JVD Respiratory exam: PRESENT: clear to auscultation zachariah, unlabored. ABSENT: symmetrical, tachypnea, wheezes Cardiovascular exam: PRESENT: RRR, +S1, +S2. ABSENT: tachycardia GI/Abdominal exam: PRESENT: normal bowel sounds Extremities exam: PRESENT: +2 edema Neurological exam: PRESENT: alert, awake, oriented to person, oriented to place Results Laboratory Results: WBC 7.8 10^3/uL (4.0-10.5) 05/24/19 08:54 RBC 4.20 10^6/uL (4.35-5.55) L 05/24/19 08:54 Hgb 13.2 g/dL (13.5-17.0) L 05/24/19 08:54 Hct 40.1 % (37.9-51.0) 05/24/19 08:54 MCV 96 fl (80-97) 05/24/19 08:54 MCH 31.5 pg (27.0-33.4) 05/24/19 08:54 MCHC 33.0 g/dL (32.0-36.0) 05/24/19 08:54 RDW 17.0 % (11.5-14.0) H 05/24/19 08:54 Plt Count 55 10^3/uL (150-450) L 05/24/19 08:54 Lymph % (Auto) 13.4 % (13-45) 05/20/19 06:00 [place] % (Auto) 8.1 % (3-13) 05/20/19 06:00 Eos % (Auto) 0.5 % (0-6) 05/20/19 06:00 Baso % (Auto) 0.7 % (0-2) 05/20/19 06:00 Absolute Neuts (auto) 8.4 10^3/uL (1.7-8.2) H 05/20/19 06:00 Absolute Lymphs (auto) 1.5 10^3/uL (0.5-4.7) 05/20/19 06:00 Absolute Monos (auto) 0.9 10^3/uL (0.1-1.4) 05/20/19 06:00 Absolute Eos (auto) 0.1 10^3/uL (0.0-0.6) 05/20/19 06:00 Absolute Basos (auto) 0.1 10^3/uL (0.0-0.2) 05/20/19 06:00 Total Counted 100 05/13/19 15:18 Seg Neutrophils % 77.3 % (42-78) 05/20/19 06:00 Seg Neuts % (Manual) 71 % (42-78) 05/13/19 15:18 Lymphocytes % (Manual) 15 % (13-45) 05/13/19 15:18 Monocytes % (Manual) 14 % (3-13) H 05/13/19 15:18 Eosinophils % (Manual) 0 % (0-6) 05/13/19 15:18 Basophils % (Manual) 0 % (0-2) 05/13/19 15:18 Abs Neuts (Manual) 7.0 10^3/uL (1.7-8.2) 05/13/19 15:18 Abs Lymphs (Manual) 1.5 10^3/uL (0.5-4.7) 05/13/19 15:18 Abs Monocytes (Manual) 1.4 10^3/uL (0.1-1.4) 05/13/19 15:18 Absolute Eos (Manual) 0.0 10^3/uL (0.0-0.6) 05/13/19 15:18 Abs Basophils (Manual) 0.0 10^3/uL (0.0-0.2) 05/13/19 15:18 Nucleated RBCs 3 /100 WBC (0) 05/13/19 15:18 Platelet Estimate Cancelled 05/24/19 06:49 Platelet Comment ADEQUATE 05/13/19 15:18 Polychromasia SLIGHT 05/13/19 15:18 Anisocytosis 2+ 05/13/19 15:18 PT 15.1 SEC (11.4-15.4) 05/18/19 04:22 INR 1.18 05/18/19 04:22 APTT 28.5 SEC (23.5-35.8) 05/18/19 04:22 Carbonic Acid 1.51 mmol/L (1.05-1.35) H 05/15/19 04:53 HCO3/H2CO3 Ratio 15:1 05/15/19 04:53 ABG pH 7.28 (7.35-7.45) L 05/15/19 04:53 ABG pCO2 50.0 mmHg (35-45) H 05/15/19 04:53 ABG pO2 66.7 mmHg (80-100) L 05/15/19 04:53 ABG HCO3 22.9 mmol/L (20-24) 05/15/19 04:53 ABG Total CO2 24.4 mmol/L (23-27) 05/15/19 04:53 ABG O2 Saturation 90.7 % (94-98) L 05/15/19 04:53 ABG Base Excess -4.1 mmol/L 05/15/19 04:53 FiO2 5L 05/15/19 04:53 Sodium 137.5 mmol/L (137-145) 05/25/19 05:48 Potassium 4.3 mmol/L (3.6-5.0) 05/25/19 05:48 Chloride 103 mmol/L (98-107) 05/25/19 05:48 Carbon Dioxide 30 mmol/L (22-30) 05/25/19 05:48 Anion Gap 5 (5-19) 05/25/19 05:48 BUN 67 mg/dL (7-20) H 05/25/19 05:48 Creatinine 1.54 mg/dL (0.52-1.25) H 05/25/19 05:48 Est GFR ( Amer) 55 (>60) L 05/25/19 05:48 Est GFR (MDRD) Non-Af 45 (>60) L 05/25/19 05:48 Glucose 78 mg/dL (75-110) 05/25/19 05:48 POC Glucose 82 mg/dL (70-110) 05/25/19 05:47 Calcium 8.6 mg/dL (8.4-10.2) 05/25/19 05:48 Phosphorus 4.9 mg/dL (2.5-4.5) H 05/22/19 04:36 Magnesium 1.6 mg/dL (1.6-2.3) 05/19/19 05:32 Total Bilirubin 0.7 mg/dL (0.2-1.3) 05/19/19 05:32 Direct Bilirubin 0.3 mg/dL (0.0-0.4) 05/19/19 05:32 Neonat Total Bilirubin Not Reportable 05/19/19 05:32 Neonat Direct Bilirubin Not Reportable 05/19/19 05:32 Neonat Indirect Bili Not Reportable 05/19/19 05:32 AST 56 U/L (17-59) 05/19/19 05:32 ALT 94 U/L (<50) 05/19/19 05:32 Alkaline Phosphatase 146 U/L (38-126) H 05/19/19 05:32 Ammonia 9.9 umol/L (9-33) 05/15/19 07:20 Lactate Dehydrogenase 157 U/L (120-246) 05/24/19 06:49 Troponin I 0.445 ng/mL 05/13/19 12:55 NT-Pro-B Natriuret Pep 90966 pg/mL (<125) H 05/13/19 12:55 Total Protein 6.0 g/dL (6.3-8.2) L 05/19/19 05:32 Albumin 3.3 g/dL (3.5-5.0) L 05/19/19 05:32 Prostate Specific Ag 1.230 ng/mL (<4.00) 05/15/19 10:25 Urine Color YELLOW 05/24/19 18:16 Urine Appearance CLEAR 05/24/19 18:16 Urine pH 5.0 (5.0-9.0) 05/24/19 18:16 Ur Specific [place] 1.010 05/24/19 18:16 Urine Protein 100 mg/dL (NEGATIVE) H 05/24/19 18:16 Urine Glucose (UA) >=500 mg/dL (NEGATIVE) H 05/24/19 18:16 Urine Ketones NEGATIVE mg/dL (NEGATIVE) 05/24/19 18:16 Urine Blood MODERATE (NEGATIVE) H 05/24/19 18:16 Urine Nitrite NEGATIVE (NEGATIVE) 05/24/19 18:16 Urine Nitrite (Reflex) NEGATIVE (NEGATIVE) 05/18/19 09:20 Urine Bilirubin NEGATIVE (NEGATIVE) 05/24/19 18:16 Urine Urobilinogen NEGATIVE mg/dL (<2.0) 05/24/19 18:16 Ur Leukocyte Esterase NEGATIVE (NEGATIVE) 05/24/19 18:16 Leukocyte Esterase Rfl NEGATIVE (NEGATIVE) 05/18/19 09:20 Urine WBC (Auto) 0 /HPF 05/24/19 18:16 Urine RBC (Auto) 2 /HPF 05/24/19 18:16 U Hyaline Cast (Auto) 4 /LPF 05/14/19 11:32 Urine WBC (Reflex) 7 /HPF 05/18/19 09:20 Squamous Epi Cells Auto <1 /HPF 05/24/19 18:16 Urine Mucus (Auto) RARE /LPF 05/24/19 18:16 Urine Ascorbic Acid NEGATIVE (NEGATIVE) 05/24/19 18:16 Fluid Type PLEURAL 05/18/19 14:00 Fluid Source LUNG 05/18/19 14:00 Fluid Color LIGHT YELLOW 05/18/19 14:00 Fluid Appearance CLEAR 05/18/19 14:00 Fluid Viscosity LIQUID 05/18/19 14:00 Fluid WBC 168 /uL 05/18/19 14:00 Fluid RBC 55 /uL 05/18/19 14:00 Fluid Seg Neutrophils 9 % 05/18/19 14:00 Fluid Lymphocytes 60 % 05/18/19 14:00 Fluid Monocytes 16 % 05/18/19 14:00 Fluid Eosinophils 15 % 05/18/19 14:00 Fluid Basophils 0 % 05/18/19 14:00 Fluid Glucose 175 mg/dL (.) 05/18/19 14:00 Fluid Total Protein 1.4 g/dL (.) 05/18/19 14:00 Fluid LDH 61 IU/L (.) 05/18/19 14:00 Fluid Amylase 13 U/L (.) 05/18/19 14:00 AFB Smear NO ACID FAST BACILLI (NO AFB SEEN) 05/18/19 14:00 Slides for Path Review Cancelled 05/24/19 06:49 05/13/19 12:55 Troponin I 0.445 NT-Pro-B Natriuret Pep 71872 H Impressions: Chest X-Ray 05/13/19 13:36 IMPRESSION: Bilateral perihilar airspace opacities, may be secondary to pulmonary edema and/or pneumonia. Small right pleural effusion. Mild central vascular congestion. Head CT 05/13/19 13:37 IMPRESSION: NO ACUTE INTRACRANIAL IMAGING FINDINGS. EVIDENCE OF ACUTE STROKE: NO. Chest X-Ray 05/15/19 06:00 IMPRESSION: Mildly increased bilateral perihilar and basilar opacities suggestive of edema although infection is not excluded. Small bilateral effusions. Chest X-Ray 05/17/19 06:00 IMPRESSION: Small to moderate size bilateral pleural effusions with bibasilar airspace disease, atelectasis versus pneumonia. Chest X-Ray 05/18/19 00:00 IMPRESSION: No postprocedural pneumothorax. Thoracentesis Ultrasound 05/18/19 00:00 IMPRESSION: Successful ultrasound-guided thoracentesis. Chest X-Ray 05/18/19 06:00 IMPRESSION: Unchanged radiographic appearance of the chest with basilar predomi nant bilateral pleural and parenchymal opacities that could represent a combination of pleural fluid, atelectasis and/or pneumonia. Correlation with clinical findings is recommended. Chest X-Ray 05/18/19 16:00 IMPRESSION: No pneumothorax 2 hours post left thoracentesis. Persistent small bilateral pleural effusions. Left basilar airspace disease likely atelectasis. Pneumonia could not be excluded. Chest X-Ray 05/21/19 00:00 IMPRESSION: NO PNEUMOTHORAX FOLLOWING THORACENTESIS. Chest X-Ray 05/21/19 00:00 IMPRESSION: Bilateral pneumonia. No pneumothorax. Thoracentesis Ultrasound 05/21/19 00:00 IMPRESSION: SUCCESSFUL THORACENTESIS USING ULTRASOUNDultrasound radiologist GUIDANCE. Chest X-Ray 05/21/19 06:00 IMPRESSION: Trace right pleural effusion and minimal right basilar airspace disease improved compared to previous studies. Persistent left lower lobe collapse and consolidation with small left pleural effusion. This is similar compared to 05/18/2019 Plan Time Spent: Greater than 30 Minutes Stroke Is this a Stroke Patient?: No Acute Heart Failure - Is this a Heart Failure Patient?: No
== END 2019-05-25 16:15 | disposition home or self-care (01) | DRG 189 ==
LOC: ER 13:14 → EH 16:33 → ICU 17:53 → 4S 05-18 16:02
PROVIDERS: ADMIT Anesthesiology; ATTEND Anesthesiology
PROC: 0W993ZX Drainage of Right Pleural Cavity, Percutaneous Approach, Diagnostic (ICD-10-PCS; principal; 2019-05-18)
PROC: 0W9B3ZZ Drainage of Left Pleural Cavity, Percutaneous Approach (ICD-10-PCS; 2019-05-21)
PROC: 3E0234Z Introduction of Serum, Toxoid and Vaccine into Muscle, Percutaneous Approach (ICD-10-PCS; 2019-05-25)
DX: J96.21 Acute and chronic respiratory failure with hypoxia (principal); G93.41 Metabolic encephalopathy; J18.9 Pneumonia, unspecified organism; I13.0 Hypertensive heart and chronic kidney disease with heart failure and stage 1 through stage 4 chronic kidney disease, or unspecified chronic kidney disease; N17.9 Acute kidney failure, unspecified; J44.1 Chronic obstructive pulmonary disease with (acute) exacerbation; J90 Pleural effusion, not elsewhere classified; I50.32 Chronic diastolic (congestive) heart failure; J96.22 Acute and chronic respiratory failure with hypercapnia; E11.22 Type 2 diabetes mellitus with diabetic chronic kidney disease; I11.0 Hypertensive heart disease with heart failure; I48.91 Unspecified atrial fibrillation; E78.00 Pure hypercholesterolemia, unspecified; N18.3 Chronic kidney disease, stage 3 (moderate); E87.5 Hyperkalemia; I27.21 Secondary pulmonary arterial hypertension; E83.39 Other disorders of phosphorus metabolism; E11.65 Type 2 diabetes mellitus with hyperglycemia; R33.9 Retention of urine, unspecified; I25.10 Atherosclerotic heart disease of native coronary artery without angina pectoris; D50.9 Iron deficiency anemia, unspecified; F17.210 Nicotine dependence, cigarettes, uncomplicated; I25.2 Old myocardial infarction; Z23 Encounter for immunization; Z79.01 Long term (current) use of anticoagulants; Z79.4 Long term (current) use of insulin; Z79.891 Long term (current) use of opiate analgesic; Z79.899 Other long term (current) drug therapy
CPT/HCPCS: 32555; 36415; 70450; 71045; 71046; 80048; 80053; 81001; 82140; 82150; 82803; 82945; 82962; 83010; 83615; 83735; 83880; 84100; 84153; 84155; 84157; 84484; 85025; 85027; 85610; 85730; 87015; 87040; 87070; 87075; 87101; 87116; 87205; 87206; 87252; 88305; 89050; 90686; 93005; 93010; 94640; 94660; 94667; 94668; 94761; 94799; 96365; 99291; C1887; J0692; J1644; J1815; J1940; J2185; J2920; J3490; J7030; J7042; J7512; J7620

== ENCOUNTER 2019-05-31 10:39 | Emergency (ER) | payer OTHER, MEDICARE ==
[2019-05-31] MEDS ORDERED: EPINEPHRINE INJ 1 MG/10 ML DISP.SYRIN IV ONE (11:21)
[2019-05-31] MEDS ORDERED: EPINEPHRINE INJ/PF 1 MG/1 ML AMPULE IV ONE (11:22)
--- NOTE | 2019-05-31 11:29 | ER Document Report ---
ED General - General Chief Complaint: Cardiac Arrest Stated Complaint: CARDIAC ARREST Time Seen by Provider: 05/31/19 10:40 Primary Care Provider: REYNA PENN MD [Primary Care Provider] - Follow up as needed Notes: 68-year-old male found facedown on the floor of his bathroom brought in by EMS. Patient was in PEA arrest and warm to the touch when they found him, they started CPR and gave epinephrine and bicarb, they then regained pulses patient was initially in a normal sinus rhythm and then transition to V. fib, they shocked him and then lost pulses, they then did another round of CPR and another round of epi and once again obtained [place] but lost it again. They had called for a hot load for helicopter to a [employer] but had to cancel it because the patient lost pulses again. On arrival to the emergency department the patient was still in a pulseless arrest. Blood sugar for EMS was in the 300s. TRAVEL OUTSIDE OF THE [place] IN LAST 30 DAYS: No - Related Data Allergies/Adverse Reactions: No Known Allergies Allergy (Verified 04/19/19 00:42) Past Medical History - General Information source: Emergency Med Personnel, [facility] Records Cannot obtain history due to: Intubated - Social History Smoking Status: Former Smoker Family History: COPD. denies: CAD, DM, Hypertension, Malignancy - Past Medical History Cardiac Medical History: Reports: Hx Atrial Fibrillation, Hx Congestive Heart Failure, Hx Coronary Artery Disease, Hx Heart Attack, Hx Hypercholesterolemia Denies: Hx DVT, Hx Hypertension, Hx Pulmonary Embolism Pulmonary Medical History: Reports: Hx COPD, Hx Pneumonia, Hx Intubation, Hx Respiratory Failure Denies: Hx Asthma, Hx Bronchitis Neurological Medical History: Denies: Hx Cerebrovascular Accident, Hx Seizures Endocrine Medical History: Reports: Hx Diabetes Mellitus Type 2. Denies: Hx Diabetes Mellitus Type 1, Hx Hyperthyroidism, Hx Hypothyroidism GI Medical History: Denies: Hx Cirrhosis, Hx Crohn's Disease, Hx Hepatitis, Hx Ulcerative Colitis - 2 admissions Musculoskeletal Medical History: Denies Hx Arthritis, Denies Hx Gout Skin Medical History: Denies Hx Eczema, Denies Hx Psoriasis Psychiatric Medical History: Denies: Hx Depression Infectious Medical History: Denies: Hx Hepatitis Past Surgical History: Reports: Other - Bilateral chest tubes on recent hospitalization - Immunizations Hx Diphtheria, Pertussis, Tetanus Vaccination: Yes Review of Systems - Review of Systems -: Yes ROS unobtainable due to patient's medical condition Physical Exam - Vital signs Vitals: Resp Pulse Ox 39 H 97 05/31/19 10:39 05/31/19 10:39 - Notes Notes: GENERAL: Intubated, mottled, warm to the touch, completely unresponsive. HEAD: Normocephalic, atraumatic EYES: Pupils equal, 4 to 5 mm, initially unresponsive. ENT: Oral mucosa moist, intubated. NECK: trachea midline. LUNGS: Intubated, no spontaneous respirations, no wheezes while being bagged. HEART: Pulseless, mottled. ABDOMEN: Mottled, no bowel sounds, moderately distended. EXTREMITIES: No spontaneous movement, pulseless, feet and hands are somewhat cool, 2+ edema in the left leg, 1+ edema in the right leg, both pitting. NEUROLOGICAL: GCS 3 T SKIN: Cool, mottled. IO in place bilateral anterior tibias. Course - Re-evaluation Re-evalutation: 05/31/19 11:35 Patient arrived in full arrest, after approximately 4 minutes of CPR and another round of epinephrine we did a pulse check and the patient was found to be in sinus tachycardia, strong peripheral pulses, systolic blood pressure in the 180s. Past history was reviewed and showed that he has a history of heart failure but also kidney failure and COPD. On further review of the chart it actually shows that his last echocardiogram from approximately a week ago showed normal systolic and diastolic diastolic function, fluid on his lungs was attributed to his renal failure at that time. Chest x-ray showed ET tube to be Slightly deep, it was withdrawn 2 cm , no evidence of pneumothorax. As the helicopter crew was at bedside and the patient was in ventricular fibrillation at one point during his code I did call [facility] to see if they would accept him for possible early catheterization given the possibility of a V. fib arrest. Dr. davies did g raciously accept this patient without any further laboratory studies available as we do not have an i-STAT. Patient's blood pressure did start to trend downward so he was placed on epinephrine drip, initially started at 3 and then increased to 5/min. Patient's blood pressure was improving. We did adjust the ventilator settings as he became hypoxic and on transfer to the helicopter he had returned to oxygenation in the mid 90s. EKG showed some ST segment depression but no elevations. Not a STEMI at this point. Bedside ultrasound did show good squeeze, no pericardial effusion. 05/31/19 11:42 After ROSC patient still had pupils that were dilated to approximately 4 mm, very sluggishly responsive, equal. No spontaneous breathing, still intubated, not requiring any sedation, does not withdraw from painful stimuli. OG tube was placed. - Vital Signs Vital signs: Temp Pulse Resp BP Pulse Ox 16 84/67 L 79 L 05/31/19 10:51 05/31/19 10:51 05/31/19 10:51 - EKG Interpretation by Me Additional EKG results interpreted by me: 05/31/19 11:43 EKG shows sinus tachycardia at a rate of 156, ST segment depression in V3 and V4, T wave inversions in V5 and V6, no STEMI, normal intervals per my interpretation. Critical Care Note - Critical Care Note Total time excluding time spent on procedures (mins): 31 Discharge - Discharge Clinical Impression: Cardiac arrest, Respiratory arrest Condition: Critical Disposition: [facility] Referrals: REYNA PENN MD [Primary Care Provider] - Follow up as needed
[2019-05-31] MEDS ORDERED: EPINEPHRINE INJ 1 MG/10 ML DISP.SYRIN ONE (11:58)
--- NOTE | 2019-05-31 12:17 | RADIOLOGY REPORT (SQ) ---
EXAM DESCRIPTION: CHEST SINGLE VIEW COMPLETED DATE/TIME: 05/31/2019 12:01 pm REASON FOR STUDY: t1 post intubation COMPARISON: None. EXAM PARAMETERS: NUMBER OF VIEWS: One view. TECHNIQUE: Single frontal radiographic view of the chest acquired. RADIATION DOSE: NA LIMITATIONS: None. FINDINGS: LUNGS AND PLEURA: Pulmonary edema. Increased retrocardiac opacification on the left. MEDIASTINUM AND HILAR STRUCTURES: No masses. Contour normal. HEART AND VASCULAR STRUCTURES: Heart normal in size. Normal vasculature. BONES: No acute findings. HARDWARE: Endotracheal tube has its tip 1 cm from the ness. An NG tube extends to the stomach. OTHER: No other significant finding. IMPRESSION: Pulmonary edema. Possible airspace disease in the left lower lobe, atelectasis versus p neumonia. Low-lying endotracheal tube. TECHNICAL DOCUMENTATION: JOB ID: [id number] [employer]- All Rights Reserved Reading location - IP/workstation name: [email or web address]
[2019-05-31 13:00] VITALS: BP 96/62
== END 2019-05-31 11:12 | disposition short-term general hospital (02) ==
LOC: ER 10:39
DX: I46.9 Cardiac arrest, cause unspecified (principal); I49.01 Ventricular fibrillation; R00.0 Tachycardia, unspecified; E11.9 Type 2 diabetes mellitus without complications; I25.10 Atherosclerotic heart disease of native coronary artery without angina pectoris; I25.2 Old myocardial infarction; J44.9 Chronic obstructive pulmonary disease, unspecified; Z87.891 Personal history of nicotine dependence; R60.0 Localized edema
CPT/HCPCS: 99291; 92950; 71045; J0171 ×2